=== PATIENT | female | born 1990 | race Caucasian/White ===

== ENCOUNTER 2017-07-11 19:26 | Emergency (ER) | payer MEDICAID, OTHER ==
[~2017-07-11] VITALS: Ht 157.5 cm; Wt 108.0 kg
--- OUTSIDE RECORDS SUMMARY | 2017-07-11 19:32 | XMS REPORT | Continuity of Care Document ---
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 [facility] Medications Medication Details Route Status Patient Instructions Ordering Provider Order Date Source prednisone 10 mg oral tablet =10 mg, 1 tab, PO, Daily, # 30 tab, 11 Refill(s), Pharmacy [facility] [id number] Active [facility] amphetamine-dextroamphetamine 30 mg oral capsule, extended release 0 Refill(s) Active [facility] folic acid 1 mg oral tablet Active [facility] methotrexate 2.5 mg oral tablet =2.5 mg, 1 tab, PO, QWEEK, # 4 tab Active [facility] gabapentin 300 mg oral capsule Active [facility] tramadol 50 mg oral tablet 0 Refill(s) Active [facility] meloxicam 15 mg oral tablet Active [facility] trazodone 50 mg oral tablet 0 Refill(s) Active [facility] Acetaminophen 325 MG / Hydrocodone Bitartrate 5 MG Oral Tablet 0 Refill(s) Active [facility] topiramate 25 MG Oral Tablet [Topamax] 75 mg 3 tab, PO, BID, # 180 tab, 6 Refill(s), Pharmacy: [facility] [id number] Active [facility] amitriptyline 25 mg oral tablet =25 mg, 1 tab, PO, QHS, # 30 tab, 11 Refill(s), Pharmacy [facility] [address] Active [facility] Allergies, Adverse Reactions, Alerts Substance Category Reaction Severity Reaction type Status Date Reported Comments Source sulfa drugs Assertion Drug allergy [facility] Immunizations Results Order Name Results Value Reference Range Date Interpretation Comments Source MRI Orbits w/wo Cont [id number] MRI Orbits w/wo Cont [id number] Name: SUREKHA TRIMBLE MRI Accession Number Exam Exam Date/Time Ordering Physician [id number] MRI Orbits w/wo Cont 01/07/2015 08:19 CDT Shahid Heath [id number] CPT code 27804 Reason For Exam (MRI Orbits w/wo Cont [id number]) idiopathic orbital inflammation R side Report Procedure: MRI Orbits w/wo Cont [id number] Reason for exam: idiopathic orbital inflammation R side. Right-sided retro- orbital pain and blurry vision for nine months, present up to 5 times per week. Question of orbital mass on outside MRI. Comparison: None. Technique: Noncontrast 5 mm sagittal T1, 3 mm axial T2, 3 mm axial T1, 3 mm coronal T1. 3 mm fat saturated postcontrast T1 axial, 3 mm fat saturated post contrast T1 coronal after administration of 8 mL Gadavist intravenous contrast. Findings: The extraocular muscles are intact and symmetric. No enhancing retro-orbital mass. No optic nerve enhancement or asymmetry. Cavernous sinuses demonstrate normal signal intensity and enhancement pattern. Limited view of the remainder of the intracranial structures is unremarkable. Small enhancing structure along the right internal auditory canal may represent small enhancing vessel. Impression: No enhancing intraorbital/ retro-orbital mass. Anatomic appearance of the optic nerves and extraocular muscles. Dr. Branden Gonzales and the staff radiologist have jointly reviewed and interpreted the above examination. Final Report Dictating Physician: Branden Gonzales Resident Physician: Branden Gonzales ELECTRONIC SIGNATURE Signed: 01.08.2015 11:08 Signed by: Sarah Kennedy M.D. Technologist: Josey Mendes, RT(R)(CT)(MR) 01/07/2015 [facility] XR Chest 2 Views [id number] XR Chest 2 Views [id number] Name: SUREKHA TRIMBLE Diagnostic Radiology Accession Number Exam Exam Date/Time Ordering Physician [id number] XR Chest 2 Views 12/08/2014 17:13 CDT Shahid Heath CPT code 30950 Reason For Exam (XR Chest 2 Views) orbital xray, ?sarcoid Report XR Chest 2 Views [id number] Indication: orbital xray, ?sarcoid Comparison: None. Technique: PA and lateral radiographs of the chest were obtained. Findings: Lungs: Normal lung volume. The lungs are clear. Normal pulmonary vasculature. Pleura: No pleural effusion. No pneumothorax. Cardiomediastinal Silhouette: Normal cardiomediastinal silhouette. The great vessels of the thorax are normal. Skeletal Structures: No acute osseous abnormality. Multilevel degenerative changes of the spine. Surgical clips about the left upper quadrant. Impression: No acute cardiopulmonary process. Specifically, no radiographic evidence of lymphadenopathy. Dr. Alek Mcclendon and the staff radiologist have jointly reviewed and interpreted the above examination. Final Report Dictating Physician: Alek Mcclendon Resident Physician: Alek Mcclendon ELECTRONIC SIGNATURE Signed: 12.09.2014 09:58 Signed by: Tiana Roy Technologist: Brittany Lockhart, RT(R)(CT) 12/08/2014 [facility] Neurology Documents Neurology Documents Patient: SUREKHA TRIMBLE [facility]: [id number] Age: 24 years Sex: Female : 89 Associated Diagnoses: None Author: Aspen Prakash Basic Information Admit information: Consult from [facility] Pseudotumor behing the right eye. . Chief Complaint 12/08/14 14:40 pt. stated tumors History of Present Illness Starting May 2014, patient reports right retro-orbital eye pain and blurry vision, pain described as pressure type sensation present at all times, worse with eye movements and at 2pm and gradually worsening by the evening until she falls asleep. Also bilateral occipital pain and far diplopia. Pain is worse with activity, and bright lights seem to bring on the pain and make it worse, associated with nausea and vomiting. No phonophobia. Throbbing type 7-8/10 pain , present 5x a week. Alleviating factors include wearing an eye patch or sunglasses. Aggravating factors include light and movements. Patient has tried vicodin, tramadol and cyclobenzaprine in the past which dosen't seem to help. Topomax made her "go crazy". She also reports the onset of left eye ptosis when these symptoms started to occur. Ptosis has since resolved, blurry vision and pain continue. Initially patient presented to [facility] where they obtained an MRI and told her she had a mass behind her right eye. Later presented [facility] Dr. Rabago who had been prescribing her steroids (50 mg 5 week taper)x3. She felt as though the steroids helped supress the pain but not the blurry vision, she felt frustrated with her care as she wanted a definative treatment for her condition and did not want to continue with just the steroids. Subsequently during this time patient developed hip and shoulder joint pain and myalgias, and knee joint swelling. She completed a course of treatment for lyme disease though her lyme serologies have come back negative. She was seen by a surgical nurse Dr. Lebron in [facility] who told her that her inflammatory markers were elevated and currently has her on methotrexate (it has been 3 weeks on 2.5mg). Mother reports a family history of cancers, unknown autoimmune disorders and fibromyalgia. Review of Systems Eye: Recent visual problem, Blurring, Visual disturbances, Retro-orbital pain. Musculoskeletal: Joint pain, Muscle pain. Neurologic: Headache. Health Status Allergies: Allergic Reactions (Selected) Severity Not Documented Sulfa drugs- No reactions were documented. Current medications: (Selected) Documented Medications Documented acetaminophen-hydrocodone 325 mg-5 mg oral tablet: 0 Refill(s) amphetamine-dextroamphetamine 30 mg oral capsule, extended release: 0 Refill(s) azathioprine 50 mg oral tablet: folic acid 1 mg oral tablet: gabapentin 300 mg oral capsule: meloxicam 15 mg oral tablet: methotrexate 2.5 mg oral tablet: 2.5 mg, 1 tab, PO, QWEEK, 4 tab prednisone 20 mg oral tablet: tramadol 50 mg oral tablet: 0 Refill(s) trazodone 50 mg oral tablet: 0 Refill(s) Problem list: All Problems Obesity NOS / ICD-9-CM 278.00 / Confirmed Added based on documentation of BMI=32.3. Histories Past Medical History: All Problems Obesity NOS / ICD-9-CM 278.00 / Confirmed Added based on documentation of BMI=32.3. Family History: No family history items have been selected or recorded., H/o of cancers, autoimmune conditions, fibromyalgia. Procedure history: No active procedure history items have been selected or recorded. Social History Alcohol 12/08/2014 Frequency: 1-2 times per month Use: Current Recreational Drugs 12/08/2014 Frequency: 1-2 times per week Type: Marijuana Use: Current Tobacco 12/08/2014 Tobacco use per day: 3 Type: Cigarettes Use: Current some day smoker Comment: only 3 cigarettes when smoking - 12/08/2014 14:47 - Anu Meyer Physical Examination VS/Measurements Vital Signs 12/08/14 14:40 Temperature Oral 98.0 DegF Heart Rate 95 bpm Resp. Rate 16 BRMIN Systolic BP 124 mmHg Diastolic BP 73 mmHg BP Site Left Arm Cuff Size Adult Regular Cuff Oxygen Saturation 99 % O2 Source Room Air , Measurements from flowsheet : Weights and Measurements 12/08/14 14:40 Weight 77.6 kg Height 155 cm Body Mass Index 32.3 kg/m2 , Bariatric Measurements : Bariatric View 12/08/14 14:40 Weight 77.6 kg Height 155 cm Body Mass Index 32.3 kg/m2 General Well developed. Well nourished. No apparent distress. HEENT Normocephalic and atraumatic. Neck Supple without carotid bruits. Heart Regular rhythm and rate. Extremities No cyanosis, clubbing or edema. Peripheral pulses normal. Mental Status Normal No evidence of apraxia, aphasia, or thought disorder. Oriented x 4 Fund of knowledge normal. Cranial Nerves 1st cranial nerve: not tested 2nd cranial nerve: normal; Visual springer are full to confrontation. Fundoscopic exam is normal, good disc margins, no disc palor Disks are flat. PERRLA 5th cranial nerve: normal; intact muscles of mastication. Intact light touch and pin prick. 7th cranial nerve: normal 8th cranial nerve: normal 11th cranial nerve: normal 12th cranial nerve: normal Motor Normal tone, bulk and strength in all four limbs without any evidence of an arm drift. No abnormal movements detected. Sensation Intact to light touch, pin prick, vibration and proprioception. Reflexes Diffusely normal with toes downgoing. Coordination Intact to fine finger movements, rapidly alternating movements, fingers to nose , heel to brunner and toe tapping. Gait Normal based without ataxia. Good heel, toe and tandem walking. Health Maintenance Health Maintenance Pending (in the next year) Due Cervical Cancer Screening due 12/08/14 and every 3 yr HIV Testing due 12/08/14 One-time only HPV Vaccine Dose 1 due 12/08/14 One-time only Lipid Screening due 12/08/14 and every 5 yr MMR Vaccine Dose 1 due 12/08/14 One-time only Tetanus Vaccine due 12/08/14 and every 10 yr Varicella Vaccine Dose 1 due 12/08/14 One-time only Due In Future Influenza Vaccine not due until 01/07/15 and every 1 yr Satisfied (in the past 1 year) There are no satisfied recommendations within the defined date range Impression and Plan 24 year old female here with right retro-orbital eye pressure/pain and blurry vision 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 -It would be beneficial to view the images (records wer requested from OSH, patient was also asked to send over her MRI disc). - Will order orbital MRI - Start prednisone 10 mg daily until methotrexate starts to control symptoms, will defer to rheumatology on possible increased dose if no alleviation of symptoms in a few weeks. (Prednisone alleviated symptoms in the past). - CXR to assist with ruling out sarcoidosis. - Will request [facility] - Follow up scheduled in Eye clinic on January 15, will check for need for glasses at this visit. Please see the resident's full note for further details. I have reviewed the history, physical, laboratory and radiological data, Impression and Plan with the resident and I agree with the above. I have interviewed and examined the patient. I have directed the plan of care. 24 F with persistent, steroid-responsive retro-orbital pain since May. Report of inflammatory orbital "mass" from MRI months ago. She had some ptosis (and possibly diplopia). She was recently started on mtx d/t elevated "inflammatory markers" by her surgical nurse. Her exam today is basically normal including nonmydriatic fundus photos. 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 Obtain prior MRI and labs. Check new orbital MRI. May need new labs (IgG4). Start low dose pred for pain (10 daily). check CXR for sarcoid. agree with mtx CXR without sign of sarcoid MRI orbits 01/07/15 reviewed, agree that it's normal. Impression: No enhancing intraorbital/ retro-orbital mass. Anatomic appearance of the optic nerves and extraocular muscles. I saw pt in eye clinic on 01/29. She will continue to follow in neuro clinic for migraine. She called and reported that she had vertigo and a bad migraine after an elevator ride then after riding on a swing. In general she doesn't consider herself prone ot motion sickness. She started amitriptyline (after these vertigo episodes), and is tolerating it. She saw ENT in the past (b/c of hearing loss) and was told that everything was normal. 12/08/2014 [facility] Vital Signs Vital Sign Value Date Comments Source BP Site Left Arm
(04/29/15 9:53 AM) 04/29/2015 [facility] Cuff Size Adult Large Cuff
(04/29/15 9:53 AM) 04/29/2015 [facility] Oxygen Saturation 99 % 2014 [facility] Resp. Rate 16 BRMIN 2014 [facility] Heart Rate 93 bpm 04/29/2015 [facility] Temperature Oral 97.7 [degF] 04/29/2015 [facility] Systolic BP 107 mmHg 2014 [facility] Diastolic BP 71 mmHg 2014 [facility] O2 Source Room Air
(04/29/15 9:53 AM) 04/29/2015 [facility] Cuff Size Adult Regular Cuff
(12/08/14 2:40 PM) 12/08/2014 [facility] BP Site Left Arm
(12/08/14 2:40 PM) 12/08/2014 [facility] Systolic BP 124 mmHg 2014 [facility] Diastolic BP 73 mmHg 2014 [facility] O2 Source Room Air
(12/08/14 2:40 PM) 12/08/2014 [facility] Oxygen Saturation 99 % 2014 [facility] Resp. Rate 16 BRMIN 2014 [facility] Heart Rate 95 bpm 12/08/2014 [facility] Temperature Oral 98.0 [degF] 12/08/2014 [facility] Encounters Location Location Details Encounter Type Encounter Number Reason For Visit Attending Provider ADM Date DC Date Status Source [facility] [id number] Shahid Heath 12/08/2014 12/09/2014 [facility] [id number] Shahid Heath 04/29/2015 04/30/2015 [facility] Procedures Plan of Care Social History Assessment and Plan Assessment and Plan Date Source Title:Clinical Document Author:Shahid Heath Neurology Follow-Up Note RECENT EVENTS/SUMMARY/SUBJECTIVE: Ms. 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 Since her last visit to the neurology clinic I evaluated her in the eye clinic, and did not find any evidence of orbital disease. She had stopped prednisone and started back on tmx 50 BID. The stated then that her headache was R periorbital and she wanted to go to sleep with the headache. She was having about 2/week at that time. She was also taking gabapentin 300 qhs at the time. I rec'd increase of tmx to 75 BID at that time. I also started amitriptyline 25 qhs. She had been doing well until the last few days when she has had a migraine every day. It is R retro-orbital and occipital. She went to the eye doctor in her home town bc it was getting red from time to time--she was told that it was a tear problem d/t systemic disease. Starting around last Monday she has had a bad taste in her mouth and has had to change her diet--she feels she can only eat sweet foods. She is going to see a new surgical nurse on May 22. She had previously seen Dr. Lebron, who had placed her on methotrexate. She however stopped taking it bc it was making her "sick". She stopped taking topamax because "it started to make me feel weird emotionally ". She is taking amitriptyline 25mg qhs, and "can't tell the difference". She is taking alleve, which "doesn't really" help. She also takes gabapentin 300mg po qhs. Sometimes she thinks they may help. She still can't do the swing set or elevators bc it makes her feel disoriented. She has never been on gabapentin at a higher dose. She complains of breaking out in a rash like a bruise in her legs. SH She just quit her job, and is planning on getting a new job that Sleep is "really bad" bc head and back "kills me" O: REVIEW OF SYSTEMS: 12 point review of systems negative except for above. Mood is "alright" when my head doesn't hurt. EXAMINATION: HEENT: nc/at [facility]: regular RESP: clear ABD: nt EXT: no edema NEUROLOGICAL Mental Staus: Awake and alert, oriented to self, place, and date Language: Fluent and Spontaneous, names and repeats CN: pupils equal and reactive without rAPD, visual springer full to CF, facial strength and sensation intact, EOMI. no ptosis. No papilledema on direct ophthalmoscopy Motor: Normal bulk and tone. Full strength. No tremor Sensory: Intact to light touch. Negative Romberg Coordination/Gait: No dysmetria on FTN/HTS. Good rapid alternating movements. Steady, narrow based gait Reflexes: 2+ symmetric throughout, toes downgoing Home Medication List Home Medications Current acetaminophen-hydrocodone: 0 Refill(s). amitriptyline: 25 mg, 1 tab, PO, QHS, 30 tab, 11 Refill(s). amphetamine-dextroamphetamine: 0 Refill(s). folic acid: . gabapentin: . meloxicam: . methotrexate: 2.5 mg, 1 tab, PO, QWEEK, 4 tab. prednisone: 10 mg, 1 tab, PO, Daily, 30 tab, 11 Refill(s). topiramate: 75 mg, 3 tab, PO, BID, 180 tab, 6 Refill(s). tramadol: 0 Refill(s). Last Vital Signs 12/08/14 14:51:48 Heart Rate 95 bpm Respiratory Rate 16 BRMIN Oral Temperature 98.0 DegF BP Primary (Left Arm) 124/73 BP Optional () / Height 155 cm Weight 77.6 kg BMI 32.3 kg/m2 Last Lab Results BMP: (Date ) Hematology Tests: (Date) Others: (Date) Lipid Profile: (Date ) Sodium Hgb () TSH () Triglycerides Potassium HgbA1C () CPK () Cholesterol Phosphorus WBC () AST /ALT () HDL Magnesium PLT () Tropinin () LDL Creatinine INR () Albumin () BUN Ur MAB/Cr () CrCl 0.00 ml/min MRI Orbits w/wo Cont [id number] - 01/07/15 08:19 Impression: No enhancing intraorbital/ retro-orbital mass. Anatomic appearance of the optic nerves and extraocular muscles.Dr. Branden Burgos. Branden Gonzales and the staff radiologist have jointly reviewed and interpreted the above examination SUMMARY: Ms. 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 Since I've been seeing her there has been on clinical or imaging evidence of IOI. She has migraine without aura and possibly a connective tissue disease (previously on MTX). Her exam is unremarkable. IMPRESSION: 1. 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 Pt to remain vigilant to possible triggers - if headache stays bad in 2 wks pt to increase gabapentin to 300 bid, to call if this doesn't help...may increase further - c/w amitrip 25 qhs - pt needs to see rheum for multiple other complaints. She was previously on mtx but taken off. appt scheduled for виан - rtc 3 months 05/04/2015 [facility] * Title:Clinical Document Author:Shahid Heath Date:04/29/15 Neurology Follow-Up Note RECENT EVENTS/SUMMARY/SUBJECTIVE: Ms. 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 Since her last visit to the neurology clinic I evaluated her in the eye clinic, and did not find any evidence of orbital disease. She had stopped prednisone and started back on tmx 50 BID. The stated then that her headache was R periorbital and she wanted to go to sleep with the headache. She was having about 2/week at that time. She was also taking gabapentin 300 qhs at the time. I rec'd increase of tmx to 75 BID at that time. I also started amitriptyline 25 qhs. She had been doing well until the last few days when she has had a migraine every day. It is R retro-orbital and occipital. She went to the eye doctor in her home town bc it was getting red from time to time--she was told that it was a tear problem d/t systemic disease. Starting around last Monday she has had a bad taste in her mouth and has had to change her diet--she feels she can only eat sweet foods. She is going to see a new surgical nurse on May 22. She had previously seen Dr. Lebron, who had placed her on methotrexate. She however stopped taking it bc it was making her "sick". She stopped taking topamax because "it started to make me feel weird emotionally ". She is taking amitriptyline 25mg qhs, and "can't tell the difference". She is taking alleve, which "doesn't really" help. She also takes gabapentin 300mg po qhs. Sometimes she thinks they may help. She still can't do the swing set or elevators bc it makes her feel disoriented. She has never been on gabapentin at a higher dose. She complains of breaking out in a rash like a bruise in her legs. SH She just quit her job, and is planning on getting a new job that Sleep is "really bad" bc head and back "kills me" O: REVIEW OF SYSTEMS: 12 point review of systems negative except for above. Mood is "alright" when my head doesn't hurt. EXAMINATION: HEENT: nc/at [facility]: regular RESP: clear ABD: nt EXT: no edema NEUROLOGICAL Mental Staus: Awake and alert, oriented to self, place, and date Language: Fluent and Spontaneous, names and repeats CN: pupils equal and reactive without rAPD, visual springer full to CF, facial strength and sensation intact, EOMI. no ptosis. No papilledema on direct ophthalmoscopy Motor: Normal bulk and tone. Full strength. No tremor Sensory: Intact to light touch. Negative Romberg Coordination/Gait: No dysmetria on FTN/HTS. Good rapid alternating movements. Steady, narrow based gait Reflexes: 2+ symmetric throughout, toes downgoing Home Medication List Home Medications Current acetaminophen-hydrocodone: 0 Refill(s). amitriptyline: 25 mg, 1 tab, PO, QHS, 30 tab, 11 Refill(s). amphetamine-dextroamphetamine: 0 Refill(s). folic acid: . gabapentin: . meloxicam: . methotrexate: 2.5 mg, 1 tab, PO, QWEEK, 4 tab. prednisone: 10 mg, 1 tab, PO, Daily, 30 tab, 11 Refill(s). topiramate: 75 mg, 3 tab, PO, BID, 180 tab, 6 Refill(s). tramadol: 0 Refill(s). Last Vital Signs 12/08/14 14:51:48 Heart Rate 95 bpm Respiratory Rate 16 BRMIN Oral Temperature 98.0 DegF BP Primary (Left Arm) 124/73 BP Optional () / Height 155 cm Weight 77.6 kg BMI 32.3 kg/m2 Last Lab Results BMP: (Date ) Hematology Tests: (Date) Others: (Date) Lipid Profile: (Date ) Sodium Hgb () TSH () Triglycerides Potassium HgbA1C () CPK () Cholesterol Phosphorus WBC () AST /ALT () HDL Magnesium PLT () Tropinin () LDL Creatinine INR () Albumin () BUN Ur MAB/Cr () CrCl 0.00 ml/min MRI Orbits w/wo Cont [id number] - 01/07/15 08:19 Impression: No enhancing intraorbital/ retro-orbital mass. Anatomic appearance of the optic nerves and extraocular muscles.Dr. Branden GonzalesDr. Branden Gonzales and the staff radiologist have jointly reviewed and interpreted the above examination SUMMARY: Ms. 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 Since I've been seeing her there has been on clinical or imaging evidence of IOI. She has migraine without aura and possibly a connective tissue disease (previously on MTX). Her exam is unremarkable. IMPRESSION: 1. 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 Pt to remain vigilant to possible triggers - if headache stays bad in 2 wks pt to increase gabapentin to 300 bid, to call if this doesn't help...may increase further - c/w amitrip 25 qhs - pt needs to see rheum for multiple other complaints. She was previously on mtx but taken off. appt scheduled for may - rtc 3 months 04/30/2015 [facility] * <table cellspacing="1" cellpadding="0" width="95%"><colgroup>< col width="35%"></col><col width="35%"></col><col width="30%"></col></colgroup>< tbody><tr><td align="left"><content styleCode="Bold">Title:</content>General Admission H&P *</td><td align="left"><content styleCode="Bold">Author:</content> Aspen Prakash</td><td align="left"><content styleCode="Bold">Date:</content></td></tr></tbody></table><table cellspacing="1" cellpadding="0" width="95%">< tbody><tr><td>
Patient: SUREKHA TRIMBLE
Age: 24 years Sex: Female : 89
Associated Diagnoses: None
Author: Aspen Prakahs

Basic Information
Admit information: Consult from [facility] behing the right eye. .

Chief Complaint
12/08/14 14:40 pt. stated tumors

History of Present Illness
Starting May 2014, patient reports right retro-orbital eye pain and blurry vision, pain described as pressure type sensation present at all times, worse with eye movements and at 2pm and gradually worsening by the evening until she falls asleep. Also bilateral occipital pain and far diplopia. Pain is worse with activity, and bright lights seem to bring on the pain and make it worse, associated with nausea and vomiting. No phonophobia. Throbbing type 7-8/10 pain , present 5x a week. Alleviating factors include wearing an eye patch or sunglasses. Aggravating factors include light and movements. Patient has tried vicodin, tramadol and cyclobenzaprine in the past which dosen't seem to help. Topomax made her "go crazy". She also reports the onset of left eye ptosis when these symptoms started to occur. Ptosis has since resolved, blurry vision and pain continue.

Initially patient presented to [facility] where they obtained an MRI and told her she had a mass behind her right eye. Later presented to [facility]y [facility] She [facility] Dr. Rabago who had been prescribing her steroids (50 mg 5 week taper)x3. She felt as though the steroids helped supress the pain but not the blurry vision, she felt frustrated with her care as she wanted a definative treatment for her condition and did not want to continue with just the steroids. Subsequently during this time patient developed hip and shoulder joint pain and myalgias, and knee joint swelling. She completed a course of treatment for lyme disease though her lyme serologies have come back negative. She was seen by a surgical nurse Dr. Lebron in [facility] who told her that her inflammatory markers were elevated and currently has her on methotrexate (it has been 3 weeks on 2.5mg).

Mother reports a family history of cancers, unknown autoimmune disorders and fibromyalgia.

Review of Systems
Eye: Recent visual problem, Blurring, Visual disturbances, Retro-orbital pain.
Musculoskeletal: Joint pain, Muscle pain.
Neurologic: Headache.

Health Status
Allergies:
Allergic Reactions (Selected)
Severity Not Documented
Sulfa drugs- No reactions were documented.
Current medications: (Selected)
Documented Medications
Documented
acetaminophen-hydrocodone 325 mg-5 mg oral tablet: 0 Refill(s)
amphetamine- dextroamphetamine 30 mg oral capsule, extended release: 0 Refill(s)
azathioprine 50 mg oral tablet:
folic acid 1 mg oral tablet:
gabapentin 300 mg oral capsule:
meloxicam 15 mg oral tablet:
methotrexate 2.5 mg oral tablet: 2.5 mg, 1 tab, PO, QWEEK, 4 tab
prednisone 20 mg oral tablet:< br/>tramadol 50 mg oral tablet: 0 Refill(s)
trazodone 50 mg oral tablet: 0 Refill(s)
Problem list:
All Problems
Obesity NOS / ICD-9-CM 278.00 / Confirmed
Added based on documentation of BMI=32.3.

Histories<br/ >Past Medical History:
All Problems
Obesity NOS / ICD-9-CM 278.00 / Confirmed
Added based on documentation of BMI=32.3.
Family History:
No family history items have been selected or recorded., H/o of cancers, autoimmune conditions, fibromyalgia.
Procedure history:
No active procedure history items have been selected or recorded.
Social History
< br/>Social & Psychosocial Habits

Alcohol
12/08/2014 Frequency: 1-2 times per month
Use: Current

Recreational Drugs
12/08/2014 Frequency: 1-2 times per week
Type: Marijuana
Use: Current

Tobacco
12/08/2014 Tobacco use per day: 3
Type: Cigarettes
Use: Current some day smoker
Comment: only 3 cigarettes when smoking - 2014 14:47 - Anu Meyer
.

Physical Examination
VS/ Measurements
Vital Signs
12/08/14 14:40 Temperature Oral 98.0 DegF
Heart Rate 95 bpm
Resp. Rate 16 BRMIN
Systolic BP 124 mmHg
Diastolic BP 73 mmHg
BP Site Left Arm
Cuff Size Adult Regular Cuff
Oxygen Saturation 99 %
O2 Source Room Air

, Measurements from flowsheet : Weights and Measurements
12/08/14 14:40 Weight 77.6 kg
Height 155 cm
Body Mass Index 32.3 kg/m2

, Bariatric Measurements : Bariatric View
12/08/14 14:40 Weight 77.6 kg
Height 155 cm
Body Mass Index 32.3 kg/m2

General
Well developed. Well nourished. No apparent distress.

HEENT
Normocephalic and atraumatic.

Neck
Supple without carotid bruits.

Heart
Regular rhythm and rate.

Extremities
No cyanosis, clubbing or edema. Peripheral pulses normal.

Mental Status
Normal
No evidence of apraxia, aphasia, or thought disorder.
Oriented x 4
Fund of knowledge normal.<br/ >
Cranial Nerves
1st cranial nerve: not tested
2nd cranial nerve: normal; Visual springer are full to confrontation. Fundoscopic exam is normal, good disc margins, no disc palor Disks are flat. PERRLA
3rd, 4th & 6th cranial nerves: normal; Extraocular movements are intact without nystagmus.
5th cranial nerve: normal; intact muscles of mastication. Intact light touch and pin prick.
7th cranial nerve: normal
8th cranial nerve: normal
9th & 10th cranial nerves: normal; Gag is present
11th cranial nerve: normal
12th cranial nerve: normal

Motor
Normal tone, bulk and strength in all four limbs without any evidence of an arm drift. No abnormal movements detected.

Sensation
Intact to light touch, pin prick, vibration and proprioception.

Reflexes
Diffusely normal with toes downgoing.

Coordination
Intact to fine finger movements, rapidly alternating movements, fingers to nose, heel to brunner and toe tapping.

Gait
Normal based without ataxia. Good heel, toe and tandem walking.

Health Maintenance

Health Maintenance
Pending (in the next year)
Due
Cervical Cancer Screening due 12/08/14 and every 3 yr<br/ >HIV Testing due 12/08/14 One-time only
HPV Vaccine Dose 1 due 12/08/14 One- time only
Lipid Screening due 12/08/14 and every 5 yr
MMR Vaccine Dose 1 due 12/08/14 One-time only
Tetanus Vaccine due 12/08/14 and every 10 yr
Varicella Vaccine Dose 1 due 12/08/14 One-time only
Due In Future
Influenza Vaccine not due until 01/07/15 and every 1 yr
Satisfied (in the past 1 year)
There are no satisfied recommendations within the defined date range

Impression and Plan
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
-It would be beneficial to view the images (records wer requested from OSH, patient was also asked to send over her MRI disc).
- Will order orbital MRI
- Start prednisone 10 mg daily until methotrexate starts to control symptoms, will defer to rheumatology on possible increased dose if no alleviation of symptoms in a few weeks. ( Prednisone alleviated symptoms in the past).
- CXR to assist with ruling out sarcoidosis.
- [facility]
- Follow up scheduled in Eye clinic on January 15, will check for need for glasses at this visit.</td></tr></tbody></table><table cellspacing="1" cellpadding="0" width="95%"><colgroup><col width="10%"></col>< col width="90%"></col></colgroup><tbody><tr><td>Addendum by Shahid Heath on 08 December 2014 17:31</td><td>Please see the resident's full note for further details. I have reviewed the history, physical, laboratory and radiological data , Impression and Plan with the resident and I agree with the above. I have interviewed and examined the patient. I have directed the plan of care.
<br/ >24 F with persistent, steroid-responsive retro-orbital pain since May. Report of inflammatory orbital "mass" from MRI months ago. She had some ptosis ( and possibly diplopia). She was recently started on mtx d/t elevated "inflammatory markers" by her surgical nurse. Her exam today is basically normal including nonmydriatic fundus photos. 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 Obtain prior MRI and labs. Check new orbital MRI. May need new labs ( IgG4). Start low dose pred for pain (10 daily). check CXR for sarcoid. agree with mtx</td></tr><tr><td>Addendum by Shahid Heath on 10 December 2014 13:06</ td><td>CXR without sign of sarcoid</td></tr></tbody></table> 12/13/2014 [facility] * <table cellspacing="1" cellpadding="0" width="95%"><colgroup>< col width="35%"></col><col width="35%"></col><col width="30%"></col></colgroup>< tbody><tr><td align="left"><content styleCode="Bold">Title:</content>General Admission H&P *</td><td align="left"><content styleCode="Bold">Author:</content> Aspen Prakash</td><td align="left"><content styleCode="Bold">Date:</content></td></tr></tbody></table><table cellspacing="1" cellpadding="0" width="95%">< tbody><tr><td>
Patient: SUREKHA TRIMBLE
Age: 24 years Sex: Female : 89
Associated Diagnoses: None
Author: Aspen Prakash

Basic Information
Admit information: Consult from [facility] beh[facility] the right eye. .

Chief Complaint
12/08/14 14:40 pt. stated tumors

History of Present Illness
Starting May 2014, patient reports right retro-orbital eye pain and blurry vision, pain described as pressure type sensation present at all times, worse with eye movements and at 2pm and gradually worsening by the evening until she falls asleep. Also bilateral occipital pain and far diplopia. Pain is worse with activity, and bright lights seem to bring on the pain and make it worse, associated with nausea and vomiting. No phonophobia. Throbbing type 7-8/10 pain , present 5x a week. Alleviating factors include wearing an eye patch or sunglasses. Aggravating factors include light and movements. Patient has tried vicodin, tramadol and cyclobenzaprine in the past which dosen't seem to help. Topomax made her "go crazy". She also reports the onset of left eye ptosis when these symptoms started to occur. Ptosis has since resolved, blurry vision and pain continue.

Initially patient presented to [facility] where they obtained an MRI and told her she had a mass behind her right eye. Later presented to neurology department [facility] She saw Dr. Rabago who had been prescribing her steroids (50 mg 5 week taper)x3. She felt as though the steroids helped supress the pain but not the blurry vision, she felt frustrated with her care as she wanted a definative treatment for her condition and did not want to continue with just the steroids. Subsequently during this time patient developed hip and shoulder joint pain and myalgias, and knee joint swelling. She completed a course of treatment for lyme disease though her lyme serologies have come back negative. She was seen by a surgical nurse Dr. Lebron in [facility] who told her that her inflammatory markers were elevated and currently has her on methotrexate (it has been 3 weeks on 2.5mg).

Mother reports a family history of cancers, unknown autoimmune disorders and fibromyalgia.

Review of Systems
Eye: Recent visual problem, Blurring, Visual disturbances, Retro-orbital pain.
Musculoskeletal: Joint pain, Muscle pain.
Neurologic: Headache.

Health Status
Allergies:
Allergic Reactions (Selected)
Severity Not Documented
Sulfa drugs- No reactions were documented.
Current medications: (Selected)
Documented Medications
Documented
acetaminophen-hydrocodone 325 mg-5 mg oral tablet: 0 Refill(s)
amphetamine- dextroamphetamine 30 mg oral capsule, extended release: 0 Refill(s)
azathioprine 50 mg oral tablet:
folic acid 1 mg oral tablet:
gabapentin 300 mg oral capsule:
meloxicam 15 mg oral tablet:
methotrexate 2.5 mg oral tablet: 2.5 mg, 1 tab, PO, QWEEK, 4 tab
prednisone 20 mg oral tablet:< br/>tramadol 50 mg oral tablet: 0 Refill(s)
trazodone 50 mg oral tablet: 0 Refill(s)
Problem list:
All Problems
Obesity NOS / ICD-9-CM 278.00 / Confirmed
Added based on documentation of BMI=32.3.

Histories<br/ >Past Medical History:
All Problems
Obesity NOS / ICD-9-CM 278.00 / Confirmed
Added based on documentation of BMI=32.3.
Family History:
No family history items have been selected or recorded., H/o of cancers, autoimmune conditions, fibromyalgia.
Procedure history:
No active procedure history items have been selected or recorded.
Social History
< br/>Social & Psychosocial Habits

Alcohol
12/08/2014 Frequency: 1-2 times per month
Use: Current

Recreational Drugs
12/08/2014 Frequency: 1-2 times per week
Type: Marijuana
Use: Current

Tobacco
12/08/2014 Tobacco use per day: 3
Type: Cigarettes
Use: Current some day smoker
Comment: only 3 cigarettes when smoking - 2014 14:47 - Anu Meyer
.

Physical Examination
VS/ Measurements
Vital Signs
12/08/14 14:40 Temperature Oral 98.0 DegF
Heart Rate 95 bpm
Resp. Rate 16 BRMIN
Systolic BP 124 mmHg
Diastolic BP 73 mmHg
BP Site Left Arm
Cuff Size Adult Regular Cuff
Oxygen Saturation 99 %
O2 Source Room Air

, Measurements from flowsheet : Weights and Measurements
12/08/14 14:40 Weight 77.6 kg
Height 155 cm
Body Mass Index 32.3 kg/m2

, Bariatric Measurements : Bariatric View
12/08/14 14:40 Weight 77.6 kg
Height 155 cm
Body Mass Index 32.3 kg/m2

General
Well developed. Well nourished. No apparent distress.

HEENT
Normocephalic and atraumatic.

Neck
Supple without carotid bruits.

Heart
Regular rhythm and rate.

Extremities
No cyanosis, clubbing or edema. Peripheral pulses normal.

Mental Status
Normal
No evidence of apraxia, aphasia, or thought disorder.
Oriented x 4
Fund of knowledge normal.<br/ >
Cranial Nerves
1st cranial nerve: not tested
2nd cranial nerve: normal; Visual springer are full to confrontation. Fundoscopic exam is normal, good disc margins, no disc palor Disks are flat. PERRLA
3rd, 4th & 6th cranial nerves: normal; Extraocular movements are intact without nystagmus.
5th cranial nerve: normal; intact muscles of mastication. Intact light touch and pin prick.
7th cranial nerve: normal
8th cranial nerve: normal
9th & 10th cranial nerves: normal; Gag is present
11th cranial nerve: normal
12th cranial nerve: normal

Motor
Normal tone, bulk and strength in all four limbs without any evidence of an arm drift. No abnormal movements detected.

Sensation
Intact to light touch, pin prick, vibration and proprioception.

Reflexes
Diffusely normal with toes downgoing.

Coordination
Intact to fine finger movements, rapidly alternating movements, fingers to nose, heel to brunner and toe tapping.

Gait
Normal based without ataxia. Good heel, toe and tandem walking.

Health Maintenance

Health Maintenance
Pending (in the next year)
Due
Cervical Cancer Screening due 12/08/14 and every 3 yr<br/ >HIV Testing due 12/08/14 One-time only
HPV Vaccine Dose 1 due 12/08/14 One- time only
Lipid Screening due 12/08/14 and every 5 yr
MMR Vaccine Dose 1 due 12/08/14 One-time only
Tetanus Vaccine due 12/08/14 and every 10 yr
Varicella Vaccine Dose 1 due 12/08/14 One-time only
Due In Future
Influenza Vaccine not due until 01/07/15 and every 1 yr
Satisfied (in the past 1 year)
There are no satisfied recommendations within the defined date range

Impression and Plan
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
-It would be beneficial to view the images (records wer requested from OSH, patient was also asked to send over her MRI disc).
- Will order orbital MRI
- Start prednisone 10 mg daily until methotrexate starts to control symptoms, will defer to rheumatology on possible increased dose if no alleviation of symptoms in a few weeks. ( Prednisone alleviated symptoms in the past).
- CXR to assist with ruling out sarcoidosis.
- [facility]
- Follow up scheduled in Eye clinic on January 15, will check for need for glasses at this visit.</td></tr></tbody></table><table cellspacing="1" cellpadding="0" width="95%"><colgroup><col width="10%"></col>< col width="90%"></col></colgroup><tbody><tr><td>Addendum by Shahid Heath on 08 December 2014 17:31</td><td>Please see the resident's full note for further details. I have reviewed the history, physical, laboratory and radiological data , Impression and Plan with the resident and I agree with the above. I have interviewed and examined the patient. I have directed the plan of care.
<br/ >24 F with persistent, steroid-responsive retro-orbital pain since May. Report of inflammatory orbital "mass" from MRI months ago. She had some ptosis ( and possibly diplopia). She was recently started on mtx d/t elevated "inflammatory markers" by her surgical nurse. Her exam today is basically normal including nonmydriatic fundus photos. 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 Obtain prior MRI and labs. Check new orbital MRI. May need new labs ( IgG4). Start low dose pred for pain (10 daily). check CXR for sarcoid. agree with mtx</td></tr></tbody></table> 12/09/2014 [facility] Family History Advance Directives Functional Status
--- OUTSIDE RECORDS SUMMARY | 2017-07-11 19:33 | XMS REPORT | Summary of Care ---
Author Organization Unknown Address Unknown Phone Unavailable Encounter HBOC Date(s): 12/08/14 - 12/08/[address] [address]- [facility] [phone] Discharge Disposition: Discharge to Home or Self-care OP Attending Physician: Shahid Heath Admitting Physician: Shahid Heath Vital Signs Most recent to 1 oldest [Reference Range]: Temperature Oral 98.0 DegF [96.4-99.1 DegF] (12/08/14 2:40 PM) Heart Rate [60-100 95 bpm bpm] (12/08/14 2:40 PM) Resp. Rate [14-20 16 BRMIN BRMIN] (12/08/14 2:40 PM) Blood Pressure 124/73 mmHg [90-140/60-90 mmHg] (12/08/14 2:40 PM) BP Site Left Arm (12/08/14 2:40 PM) Cuff Size Adult Regular Cuff (12/08/14 2:40 PM) Oxygen Saturation 99 % [92-100 %] (12/08/14 2:40 PM) O2 Source Room Air (12/08/14 2:40 PM) Problem List Condition Effective Dates Status Health Status Informant Idiopathic orbital Active inflammatory syndrome(Confirmed) Obesity Active NOS(Confirmed)1 1Added based on documentation of BMI=32.3. Allergies, Adverse Reactions, Alerts Substance Reaction Severity Status sulfa drugs Active Medications acetaminophen-hydrocodone 325 mg-5 mg oral tablet 0 Refill(s) Start Date: 12/08/14 Status: Ordered amphetamine-dextroamphetamine 30 mg oral capsule, extended release 0 Refill(s) Start Date: 12/08/14 Status: Ordered folic acid 1 mg oral tablet Start Date: 12/08/14 Status: Ordered gabapentin 300 mg oral capsule Start Date: 12/08/14 Status: Ordered meloxicam 15 mg oral tablet Start Date: 12/08/14 Status: Ordered methotrexate 2.5 mg oral tablet =2.5 mg, 1 tab, PO, QWEEK, # 4 tab Start Date: 12/08/14 Status: Ordered prednisone 10 mg oral tablet =10 mg, 1 tab, PO, Daily, # 30 tab, 11 Refill(s), Pharmacy [facility] [id number] Start Date: 12/08/14 Stop Date: 06/27/19 Status: Ordered tramadol 50 mg oral tablet 0 Refill(s) Start Date: 12/08/14 Status: Ordered trazodone 50 mg oral tablet 0 Refill(s) Start Date: 12/08/14 Status: Ordered Results No data available for this section Immunizations No data available for this section Procedures No data available for this section Social History No data available for this section Functional Status No data available for this section Assessment and Plan Extracted from: Title: General Admission H&P * Author: Aspen Prakash Date: 12/08/14 Patient: SUREKHA LEBLANC Age: 24 years Sex: Female : 89 [...] and pain continue. Initially patient presented to [place] where they obtained an MRI and told her she had a mass behind her right eye. Later presented to neurology [facility] She [facility] Dr. Rabago who had been [...] back negative. She was seen by a investment representative Dr. Lebron in [facility] who told her that her inflammatory markers [...] have been selected or recorded. Social History Social & Psychosocial Habits Alcohol 12/08/2014 Frequency: 1-2 [...] rheumatological lab work-up from Dr. Lebron in [facility] - Follow up scheduled in Eye clinic on January 15, will check for need for glasses at this visit. Addendum Please see the resident's full note for further details. I have reviewed the history, by Kumar physical, laboratory and radiological data, Impression and Plan with the resident and I Shahid agree with the above. I have interviewed and examined the patient. I have directed the on plan of care. December 29 F with persistent, steroid-responsive retro-orbital pain since May. Report of 2014 17:31 inflammatory orbital "mass" from MRI months ago. She had some ptosis (and possibly diplopia). She was recently started on mtx d/t elevated "inflammatory markers" by her investment representative. Her exam today is basically normal including nonmydriatic fundus photos. 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 Obtain prior MRI and labs. Check new orbital MRI. May need new labs (IgG4). Start low dose pred for pain (10 daily). check CXR for sarcoid. agree with mtx Hospital Discharge Instructions No data available for this section
--- OUTSIDE RECORDS SUMMARY | 2017-07-11 19:33 | XMS REPORT | Continuity of Care Document ---
Author Author Formerly [facility] Address Unknown Phone Unavailable Allergies Active Description Code Type Severity Reaction Onset Reported/Identified Relationship to Patient Clinical Status Yes Augmentin 875-125 mg tablet Drug Allergy N/A N/A 05/22/2013 Yes Sulfa (Sulfonamide Antibiotics) Drug Allergy N/A N/A 09/09/2013 Medications There is no data. Problems Date Dx Coded Attending Type Code Diagnosis Diagnosed By 05/16/2013 SERA ANDERSON DO 461.9 SINUSITIS ACUTE 05/16/2013 SERA ANDERSON DO V65.42 COUNSELING - SMOKING CESSATION 05/16/2013 NILS LILLY APRN 461.9 SINUSITIS ACUTE 05/16/2013 NILS LILLY APRN V65.42 COUNSELING - SMOKING CESSATION 09/09/2013 NILS LILLY APRN 616.10 VAGINITIS AND VULVOVAGINITIS UNSPECIFIED 09/09/2013 NILS LILLY APRN V74.5 STD SCREEN Procedures Code [place] [address] ROUTINE VENIPUNCTURE 09/09/2013 90287 TRICHOMONAS (IN-HOUSE) 09/09/2013 11843 SYPHILLIS-STATE LAB 09/10/2013 42224 HIV (STATE LAB) 09/10/2013 76379 GC/CHLAM PROBE ([facility]) 09/10/2013 43838 CULTURE UROGENITAL 09/12/2013 Results There is no data. Encounters ACCT No. Visit Date/Time Discharge Status Pt. Type Provider Facility Loc./Unit Complaint [id number] 09/09/2013 16:53:00 09/09/2013 23:59:59 CLS Outpatient NILS LILLY APRN [id number] 05/16/2013 10:16:00 05/16/2013 23:59:59 [place] [id number] 11/20/2008 10:48:00 11/20/2008 23:59:59 CLS Outpatient JOANN KIM [id number] 03/31/2015 14:01:00 03/31/2015 14:38:00 DIS Outpatient ADOLPH MARTINEZ, HALLIE See [facility] SLEEP [id number] 07/11/2017 19:28:00 ACT Emergency LESTER OCHOA DO [facility] ER KIDNEY PAIN
--- OUTSIDE RECORDS SUMMARY | 2017-07-11 19:33 | XMS REPORT | Summary of Care ---
Author Author [facility] Organization [facility] Address Unknown Phone Unavailable Encounter HBOC Date(s): 04/29/15 - 04/29/15 [facility] [address] [place] [address]- [facility] [phone] Discharge Disposition: Discharge to Home or Self-care OP Attending Physician: Shahid Heath Admitting Physician: Shahid Heath Vital Signs Most recent to 1 oldest [Reference Range]: Temperature Oral 97.7 DegF [96.4-99.1 DegF] (04/29/15 9:53 AM) Heart Rate [60-100 93 bpm bpm] (04/29/15 9:53 AM) Resp. Rate [14-20 16 BRMIN BRMIN] (04/29/15 9:53 AM) Blood Pressure 107/71 mmHg [90-140/60-90 mmHg] (04/29/15 9:53 AM) BP Site Left Arm (04/29/15 9:53 AM) Cuff Size Adult Large Cuff (04/29/15 9:53 AM) Oxygen Saturation 99 % [92-100 %] (04/29/15 9:53 AM) O2 Source Room Air (04/29/15 9:53 AM) Problem List Condition Effective Dates Status Health Status Informant Idiopathic orbital Active inflammatory syndrome(Confirmed) Migraine without Active aura(Confirmed) Obesity Active NOS(Confirmed)1 1Added based on documentation of BMI=32.3. Allergies, Adverse Reactions, Alerts Substance Reaction Severity Status sulfa drugs Active Medications acetaminophen-hydrocodone 325 mg-5 mg oral tablet 0 Refill(s) Start Date: 12/08/14 Status: Ordered amitriptyline 25 mg oral tablet =25 mg, 1 tab, PO, QHS, # 30 tab, 11 Refill(s), Pharmacy [facility] [id number] Start Date: 01/29/15 Status: Ordered amphetamine-dextroamphetamine 30 mg oral capsule, [...] Daily, # 30 tab, 11 Refill(s), [facility]acy [facility] Start Date: 12/08/14 Stop Date: 06/27/19 Status: Ordered Topamax 25 mg oral tablet 75 mg 3 tab, PO, BID, # 180 tab, 6 Refill(s), Pharmacy: [facility] [id number] Start Date: 01/29/15 Status: Ordered tramadol 50 mg oral tablet 0 Refill(s) Start Date: 12/08/14 Status: Ordered Results No data available for this section Immunizations No data available for this section Procedures No data available for this section Social History No data available for this section Functional Status No data available for this section Assessment and Plan Extracted from: Title: Clinical Document Author: Shahid Heath Date: 04/29/15 Neurology Follow-Up Note RECENT EVENTS/SUMMARY/SUBJECTIVE: Ms. Leblanc is a 25 year old woman with [...] She is going to see a new roller die cutting machine operator on May 22. She had previously seen [...] Vital Signs 12/08/14 14:51:48 Heart Rate 95 bpmRespiratory Rate 16 BRMINOral Temperature 98.0 DegF BP Primary (Left Arm) 124/73BP Optional () / Height 155 cmWeight 77.6 kgBMI 32.3 kg/m2 Last Lab Results BMP: (Date )Hematology Tests: (Date)Others: (Date)Lipid Profile: (Date ) Sodium Hgb ()TSH ()Triglycerides Potassium HgbA1C ()CPK ()Cholesterol Phosphorus WBC ()AST /ALT ()HDL Magnesium PLT ()Tropinin ()LDL Creatinine INR ()Albumin () BUN Ur MAB/Cr () CrCl 0.00 ml/min MRI Orbits w/wo Cont [id number] -01/07/15 08:19 Impression: No enhancing intraorbital/ retro-orbital mass. Anatomic appearance of the optic nerves and extraocular muscles.Dr. Branden GonzalesDr. Branden Gonzales and the staff radiologist have jointly reviewed and interpreted the above examination SUMMARY: Ms. Leblanc is a 25-year-old woman who I initially [...]
--- OUTSIDE RECORDS SUMMARY | 2017-07-11 19:33 | XMS REPORT | Summary of Care ---
Author Author [facility] Organization [facility] Address Unknown Phone Unavailable Encounter HBOC Date(s): 04/29/15 - 04/29/15 [facility] [address] [place] [address]- [facility] [phone] Discharge Disposition: Discharge to Home or Self-care [...] QHS, # 30 tab, 11 Refill(s), [facility] [address] Start Date: 01/29/15 Status: Ordered amphetamine-dextroamphetamine 30 [...] Daily, # 30 tab, 11 Refill(s), [facility]acy [facility] [address] Start Date: 12/08/14 Stop Date: 06/27/19 Status: Ordered Topamax 25 mg oral tablet 75 mg 3 tab, PO, BID, # 180 tab, 6 Refill(s), Pharmacy: [facility] [id number] Start Date: 01/29/15 Status: Ordered tramadol 50 [...] She is going to see a new hydraulic press in operator on May 22. She had previously [...] CrCl 0.00 ml/min MRI Orbits w/wo Cont [id number] -01/07/15 08:19 Impression: No enhancing intraorbital/ retro-orbital [...]
--- OUTSIDE RECORDS SUMMARY | 2017-07-11 19:33 | XMS REPORT ---
Author SRIDEVI Burnette [facility] [employer] Address Unknown Phone Unavailable Care Team Providers Care Loop Drier Operator Name Role Phone SRIDEVI POLO CP Unavailable Allergies, Adverse Reactions, Alerts Substance Reaction Event Type Augmentin 875-125 Mg Tablet severe abd pain Non Drug Allergy Sulfa (sulfonamide Antibiotics) Info Not Available Non Drug Allergy Problems Problem Type Condition Code Onset Dates Condition Status Problem Unspecified vaginitis and vulvovaginitis 616.10 Active Problem Acute sinusitis, unspecified 461.9 Active Problem Screening examination for venereal disease V74.5 Active Problem Counseling on substance use and abuse V65.42 Active Assessment Dental examination Z01.20 Active Medications Medication Code System Code Instructions Start Date End Date Status Dosage Klonopin [facility] [address]-60 not defined Prozac [facility] [address]-06 not defined Percocet [facility] [address]-72 7.5-325 MG Orally every 4-6 hours as needed Dec 29, 2015 1-2 tablets as needed Tramadol HCl [facility] [address]-32 50 MG Orally every 6 hrs 1 -2 Adderall [facility] [address]-98 not defined Clindamycin HCl [facility] [address]-21 150 MG Orally every 8 hrs 2 capsules Procedures Procedure Coding System Code Date INTRAORL-PERIAPICAL 1 FILM 47850 CPT-4 D0220 Dec 29, 2015 PANORAMIC FILM SEE ALSO CODE 89350 CPT-4 D0330 Dec 29, 2015 LTD ORAL EVALUATION - PROBLEM FOCUS CPT-4 D0140 Dec 29, 2015 Billing Notes on claim CPT-4 EC109 Dec 29, 2015 Vital Signs Date/Time: Dec 29, 2015 Blood Pressure Diastolic 77 mmHg Blood Pressure Systolic 120 mmHg Height 60 in Results No Known Results Summary Purpose eClinicalWorks Submission
--- OUTSIDE RECORDS SUMMARY | 2017-07-11 19:33 | XMS REPORT | Summary of Care ---
Author Organization Unknown Address Unknown Phone Unavailable Encounter HBOC Date(s): 12/08/14 - 12/08/[address] [address]- [facility] [phone] Discharge Disposition: Discharge to Home or Self-care [...] Daily, # 30 tab, 11 Refill(s), Pharmacy [facility] [id number] Start Date: 12/08/14 Stop Date: 06/27/19 Status: [...] and pain continue. Initially patient presented to [facility] where they obtained an MRI and told her she had a mass behind her right eye. Later presented to neurology department who [facility] She saw Dr. Rabago who had been [...] back negative. She was seen by a scooter mechanic Dr. Lebron in [facility] who told her that her inflammatory [...] rheumatological lab work-up from Dr. Lebron in [facility] - Follow up scheduled in Eye clinic on January 15, will check for need for glasses at this visit. Addendum Please see the resident's full note for further details. I have reviewed the history, by Kumar physical, laboratory and radiological data, Impression and Plan with the resident and Shahid Omer agree with the above. I have interviewed and examined the patient. I have directed the on plan of care. December 29 F with persistent, steroid-responsive retro-orbital pain since May. Report of 2014 17:31 inflammatory orbital "mass" from MRI months ago. She had some ptosis (and possibly diplopia). She was recently started on mtx d/t elevated "inflammatory markers" by her scooter mechanic. Her exam today is basically normal including nonmydriatic fundus photos. 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 Obtain prior MRI and labs. Check new orbital MRI. May need new labs (IgG4). Start low dose pred for pain (10 daily). check CXR for sarcoid. agree with mtx Addendum CXR without sign of sarcoid by Shahid Heath on 10 December 2014 13:06 Hospital Discharge Instructions No data available for this section
--- OUTSIDE RECORDS SUMMARY | 2017-07-11 19:33 | XMS REPORT | Clinical Summary ---
Author Author [facility] Organization [facility] Address Unknown Phone Unavailable Care Team Providers Care Material Mixer Name Role Phone Yuli Monge MD Unavailable Delta Rabago MD Unavailable Source Comments Some departments are not documenting in the electronic medical record. If you do not see the information that you expected, contact Release of Information in the Health Information Management department at [phone] for further assistance in locating additional records.[facility] Allergies Active Allergy Reactions Severity Noted Date Comments Sulfa (Sulfonamide HIVES 05/29/2014 Antibiotics) Current Medications Prescription Sig. Disp. 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 Discussed the risk of recurrence. OK to remain off steroids. Recheck in one month. Family History Medical History Relation Name Comments Diabetes Father Coronary Artery Disease Maternal Grandfather Autoimmune Disease Mother Thyroid Disease Mother Cancer Paternal Grandfather Stroke Paternal Grandmother Relation Name Status Comments Father Maternal Grandfather Mother Paternal Grandfather Paternal Grandmother Social History Tobacco Use Types Packs/Day Years Used Date Current Some Day Smoker Cigarettes 0 Smokeless Tobacco: Former Chew Quit: User 05/08/2012 Comments: 5 cigs a week. Alcohol Use Drinks/Week oz/Week Comments Yes 2 Standard 1.0 drinks or equivalent Sex Assigned at Date Recorded Not on file Last Filed Vital Signs Vital Sign Reading Time Taken Blood Pressure 128/81 06/24/2014 2:49 PM EXTENSION SUPERVISOR Pulse 85 06/24/2014 2:49 PM EXTENSION SUPERVISOR Temperature - - Respiratory Rate - - Oxygen Saturation - - Inhaled Oxygen - - Concentration Weight 85.7 kg (189 lb) 06/24/2014 2:49 PM EXTENSION SUPERVISOR Height 154.9 cm (5' 1") 06/24/2014 2:49 PM EXTENSION SUPERVISOR Body Mass Index 35.71 06/24/2014 2:49 PM EXTENSION SUPERVISOR Plan of Treatment Health Maintenance Due Date Last Done Comments PHYSICAL (COMPREHENSIVE) 1997 EXAM PERTUSSIS VACCINE 2001 TETANUS VACCINE 2007 CERVICAL CANCER SCREENING 2011 INFLUENZA VACCINE 12/06/2017 HPV VACCINES Aged Out No longer eligible based on patient's age to complete this topic Results Not on filefrom Last 3 Months
[2017-07-11] MEDS ORDERED: ONDANSETRON 4 MG/2 ML (SDV) Z0FRAN ONE (19:59)
[2017-07-11] MEDS ORDERED: ONDANSETRON 4 MG/2 ML (SDV) Z0FRAN IVP ONE (20:00)
[2017-07-11] MEDS ORDERED: KETOROLAC 30 MG/ML VIAL IVP ONE (20:00)
[2017-07-11] MEDS ORDERED: NS IV 1000 ML 1,000 ML IV SCH (20:00)
[2017-07-11 20:04] LABS: BILIRUBIN,URINE NEGATIVE (NEGATIVE); CLARITY,URINE CLEAR; COLOR,URINE YELLOW; GLUCOSE, URINE (UA) NEGATIVE (NEGATIVE); KETONES,URINE NEGATIVE (NEGATIVE); LEUKOCYTE ESTERASE ,URINE NEGATIVE (NEGATIVE); NITRITE,URINE NEGATIVE (NEGATIVE); PH,URINE 6 (5-9); PROTEIN,URINE NEGATIVE (NEGATIVE); UROBILINOGEN,URINE NORMAL (NORMAL)
[2017-07-11 20:06] LABS: BASOPHILS % (AUTO) 0 % (0-10); EOSINOPHILS # (AUTO) 0.1 10^3/uL (0.0-0.3); EOSINOPHILS % (AUTO) 0 % (0-10); HEMATOCRIT 38 % (35-52); HEMOGLOBIN 12.9 G/DL (11.5-16.0); LYMPHOCYTES # (AUTO) 3.1 X 10^3 (1.0-4.0); LYMPHOCYTES % (AUTO) 27 % (12-44); MEAN CORPUSCULAR HEMOGLOBIN 30 PG (25-34); MEAN CORPUSCULAR HGB CONC 34 G/DL (32-36); MEAN CORPUSCULAR VOLUME 87 FL (80-99); MEAN PLATELET VOLUME 9.8 FL (7.4-10.4); MONOCYTES # (AUTO) 0.8 X 10^3 (0.0-1.0); MONOCYTES % (AUTO) 7 % (0-12); NEUTROPHILS # (AUTO) 7.4 X 10^3 (1.8-7.8); NEUTROPHILS % (AUTO) 65 % (42-75); PLATELET COUNT 305 10^3/uL (130-400); RED BLOOD COUNT 4.32 10^6/uL (4.35-5.85); RED CELL DISTRIBUTION WIDTH 13.9 % (10.0-14.5); WHITE BLOOD COUNT 11.4 10^3/uL (4.3-11.0)
--- NOTE | 2017-07-11 20:06 | ED Back Pain ---
General Chief Complaint: Back Problems Stated Complaint: KIDNEY PAIN History of Present Illness Date Seen by Provider: Jul 11, 2017 Time Seen by Provider: 19:45 Initial Comments Patient presents to the emergency room with complaints of sharp bilateral kidney pain, nausea, blood in urine X1 void today, and the pain radiates down her right leg. Patient reports having a diagnosis of lupus 1 week ago by [facility] in [facility]. Location: Lumbar Spine Timing/Duration: 4-6 Hours Pain/Injury Location: Back (low back and kidney pain. ) Radiation: Upper Legs (right leg. ) Modifying Factors: Worse With Movement, Improves With Rest Associated Symptoms: denies symptoms Allergies and Home Medications Allergies Uncoded Allergies: SULFA (Adverse Reaction, Mild, HIVES, 07/11/17) Patient Home Medication List Home Medication List Reviewed: Yes Constitutional: no symptoms reported, see HPI EENTM: see HPI, no symptoms reported Respiratory: no symptoms reported, see HPI Cardiovascular: no symptoms reported, see HPI Gastrointestinal: no symptoms reported, see HPI Genitourinary: see HPI, hematuria (X 1 voi hydrocodone fentanyl hered. ), other (pain over her kidneys) : No Musculoskeletal: see HPI, back pain (low back pain. ) Skin: no symptoms reported, see HPI Psychiatric/Neurological: No Symptoms Reported, See HPI Past Kzltxwr-Nqfbqi-Bwtftr Hx Patient Social History Alcohol Use: Rarely Uses Recreational Drug Use: Yes (THC) Smoking Status: Former Smoker Type Used: Cigarettes Former Smoker, Quit: Jul 06, 2017 Recent Foreign Travel: No Contact w/Someone Who Travel: No Recent Hopitalizations: No Immunizations Up To Date PED Vaccines UTD: Yes Seasonal Allergies Seasonal Allergies: Yes Surgeries History of Surgeries: Yes (GASTRIC SLEEVE) Surgeries: Section, Tubal Ligation Respiratory History of Respiratory Disorde: No Cardiovascular History of Cardiac Disorders: No Neurological History of Neurological Disord: No Genitourinary History of Genitourinary Disor: No Gastrointestinal History of Gastrointestinal Di: No Musculoskeletal History of Musculoskeletal Dis: No Endocrine 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) HEENT History of HEENT Disorders: Yes (LACRIMAL GLAND TUMOR R EYE) Psychosocial History of Psychiatric Problem: Yes (OCD) Behavioral Health Disorders: ADD/ADHD, Anxiety, Bipolar Integumentary History of Skin or Integumenta: No Blood Transfusions History of Blood Disorders: No Physical Exam Vital Signs Capillary Refill : General Appearance: No Apparent Distress, WD/WN HEENT: Normal ENT Inspection Neck: Full Range of Motion, Normal Inspection, Non Tender Cardiovascular: Regular Rate, Rhythm, No Edema, No Gallop, No Murmur, Normal Peripheral Pulses Respiratory: Chest Non Tender, Lungs Clear, Normal Breath Sounds Gastrointestinal: Normal Bowel Sounds Back: Normal Inspection, Other (exquisite tenderness to palpation of lumbar spine and bilateral flanks) Extremity: Normal Capillary Refill, Normal Inspection, Normal Range of Motion Neurologic/Psychiatric: Alert, Oriented x3, No Motor/Sensory Deficits Skin: Normal Color, Warm/Dry Progress/Results/Core Measures Results/Orders Lab Results Laboratory Tests Test 07/11/17 19:40 07/11/17 19:49 Range/Units Urine Color YELLOW Urine Clarity CLEAR Urine pH 6 5-9 Urine Specific [place] 1.015 L 1.016-1.022 Urine Protein NEGATIVE NEGATIVE Urine Glucose (UA) NEGATIVE NEGATIVE Urine Ketones NEGATIVE NEGATIVE Urine Nitrite NEGATIVE NEGATIVE Urine Bilirubin NEGATIVE NEGATIVE Urine Urobilinogen NORMAL NORMAL MG/DL Urine Leukocyte Esterase NEGATIVE NEGATIVE Urine RBC (Auto) 1+ H NEGATIVE Urine RBC 2-5 H /HPF Urine WBC NONE /HPF Urine Squamous Epithelial Cells 10-25 H /HPF Urine Crystals NONE /LPF Urine Bacteria MODERATE H /HPF Urine Casts NONE /LPF Urine Mucus SMALL H /LPF Urine Culture Indicated NO White Blood Count 11.4 H 4.3-11.0 10^3/uL Red Blood Count 4.32 L 4.35-5.85 10^6/uL Hemoglobin 12.9 11.5-16.0 G/DL Hematocrit 38 35-52 % Mean Corpuscular Volume 87 80-99 FL Mean Corpuscular Hemoglobin 30 25-34 PG Mean Corpuscular Hemoglobin Concent 34 32-36 G/DL Red Cell Distribution Width 13.9 10.0-14.5 % Platelet Count 305 130-400 10^3/uL Mean Platelet Volume 9.8 7.4-10.4 FL Neutrophils (%) (Auto) 65 42-75 % Lymphocytes (%) (Auto) 27 12-44 % Monocytes (%) (Auto) 7 0-12 % Eosinophils (%) (Auto) 0 0-10 % Basophils (%) (Auto) 0 0-10 % Neutrophils # (Auto) 7.4 1.8-7.8 X 10^3 Lymphocytes # (Auto) 3.1 1.0-4.0 X 10^3 Monocytes # (Auto) 0.8 0.0-1.0 X 10^3 Eosinophils # (Auto) 0.1 0.0-0.3 10^3/uL Basophils # (Auto) 0.0 0.0-0.1 10^3/uL Sodium Level 137 135-145 MMOL/L Potassium Level 3.7 3.6-5.0 MMOL/L Chloride Level 102 98-107 MMOL/L Carbon Dioxide Level 22 21-32 MMOL/L Anion Gap 13 5-14 MMOL/L Blood Urea Nitrogen 9 7-18 MG/DL Creatinine 0.77 0.60-1.30 MG/DL Estimat Glomerular Filtration Rate > 60 BUN/Creatinine Ratio 12 Glucose Level 92 70-105 MG/DL Calcium Level 9.5 8.5-10.1 MG/DL Total Bilirubin 0.6 0.1-1.0 MG/DL Aspartate Amino Transf (AST/SGOT) 18 5-34 U/L Alanine Aminotransferase (ALT/SGPT) 15 0-55 U/L Alkaline Phosphatase 50 40-136 U/L Total Protein 8.0 6.4-8.2 GM/DL Albumin 4.5 3.2-4.5 GM/DL My Orders Orders - EFRA NORTON APRN Ketorolac Injection (Toradol Injection) (07/11/17 20:00) Ondansetron Injection (Zofran Injectio (07/11/17 20:00) Ns Iv 1000 Ml (Sodium Chloride 0.9%) (07/11/17 20:00) Urine Bedside (07/11/17 19:54) Saline Lock/Iv-Start (07/11/17 19:54) Ua Culture If Indicated (07/11/17 19:54) Cbc With Automated Diff (07/11/17 19:54) Comprehensive Metabolic Panel (07/11/17 19:54) Ct Abd/Pelvis Wo(Kidney Stone) (07/11/17 19:54) Ondansetron Injection (Zofran Injectio (07/11/17 19:59) Medications Given in ED Current Medications Medications Dose Ordered Sig/Ivonne Route Start Time Stop Time Status Last Admin Dose Admin Ketorolac Tromethamine 15 mg ONCE ONCE IVP 07/11/17 20:00 07/11/17 20:01 DC 07/11/17 20:04 15 MG Ondansetron HCl 4 mg ONCE ONCE IVP 07/11/17 20:00 07/11/17 20:01 DC 07/11/17 20:04 4 MG Diagnostic Imaging Diagonstic Imaging: Xray Plain Films/CT/US/NM/MRI: chest Comments NAME: SUREKHA LEBLANC [facility] REC#: [id number] PT STATUS: REG ER : 1990 PHYSICIAN: EFRA NORTON SOCIAL WORK PROFESSOR ADMIT DATE: 07/11/17/ER Draft Date of Exam:07/11/17 CT ABD/PELVIS WO(KIDNEY STONE) Clinical indication: Patient with bilateral posterior back pain, right flank pain with hematuria x3 weeks. Patient has had nausea, vomiting and diarrhea x1.5 weeks. Exam: CT exam of the abdomen and pelvis is performed without IV or oral contrast using stone protocol. Coronal and sagittal reformatted images were created. Comparisons: None. Findings: Visualized lung bases: Unremarkable. Liver: Unremarkable as visualized. Gallbladder: Unremarkable. Pancreas: Unremarkable as visualized. Spleen: Unremarkable as visualized. Adrenal glands: Unremarkable. Kidneys/ ureters: Unremarkable as visualized. Aorta: Unremarkable as visualized. Lymph Nodes: There are multiple small paraaortic lymph nodes and lymph nodes seen throughout the mesentery. Intraabdominal/ retroperitoneal contents: Unremarkable. Intestines: Postop changes to the stomach are seen which may be related to gastroplasty. Otherwise intestines are unremarkable. Appendix: Unremarkable. Bladder: Unremarkable as visualized. Pelvic organs: Unremarkable as visualized. There is minimal fluid in the pelvis, likely physiologic. Extra abdominal/ pelvis regions: Unremarkable. Abdominal wall: Unremarkable. Bones: Unremarkable. Impression: 1: There are small subcentimeter lymph nodes in the paraaortic and mesenteric region which may be related to mesenteric adenitis. 2: Otherwise, the remainder of the CT scan exam shows no acute abdominal or pelvic process. There is no urinary tract stone seen. 3: Postop changes to the stomach. Dictated on workstation # [id number] Dict: 07/11/172023 Trans: 07/11/172029 [facility] [id number] Interpreted by: NEYDA MARTINEZ MD Electronically signed by: Departure Impression Impression: Primary Impression: Low back pain Disposition: 01 HOME, SELF-CARE Condition: Stable Departure-Patient Inst. Decision time for Depature: 20:33 Referrals: NO,LOCAL PHYSICIAN (PCP) Primary Care Physician Patient Instructions: Low Back Pain (DC) Add. Discharge Instructions: 1. Antiinflammatories as directed in addition to muscle relaxers, follow up with your doctor next week for recheck 2. Return to ER for any concerns All discharge instructions reviewed with patient and/or family. Voiced understanding. Scripts Cyclobenzaprine HCl (Cyclobenzaprine HCl) 5 Mg Tablet 5 MG PO TID Y for PAIN-MILD TO MODERATE, #10 TAB Prov: EFRA NORTON SOCIAL WORK PROFESSOR 07/11/17 Naproxen Sodium (Anaprox Ds) 550 Mg Tablet 550 MG PO BID Y for PAIN-SEVERE, #14 TAB Prov: EFRA NORTON SOCIAL WORK PROFESSOR 07/11/17 EFRA NORTNO APRN Jul 11, 2017 20:06
[2017-07-11 20:19] LABS: ALANINE AMINOTRANSFERASE 15 U/L (0-55); ALBUMIN 4.5 GM/DL (3.2-4.5); ALKALINE PHOSPHATASE 50 U/L (40-136); BILIRUBIN,TOTAL 0.6 MG/DL (0.1-1.0); BUN/CREATININE RATIO 12; CALCIUM 9.5 MG/DL (8.5-10.1); CARBON DIOXIDE 22 MMOL/L (21-32); CHLORIDE 102 MMOL/L (98-107); CREATININE SERUM 0.77 MG/DL (0.60-1.30); GFR ESTIMATED > 60; GLUCOSE 92 MG/DL (70-105); POTASSIUM 3.7 MMOL/L (3.6-5.0); SODIUM 137 MMOL/L (135-145)
[2017-07-11 20:25] LABS: BACTERIA,URINE MODERATE /HPF
[2017-07-11] MEDS ORDERED: AMPH10CA (20:29)
[2017-07-11] MEDS ORDERED: CLON1TAB3 (20:29)
[2017-07-11] MEDS ORDERED: FLUO20CA25 (20:29)
--- NOTE | 2017-07-11 20:31 | Diagnostic Imaging Report ---
Clinical indication: Patient with bilateral posterior back pain, right flank pain with hematuria x3 weeks. Patient has had nausea, vomiting and diarrhea x1.5 weeks. Exam: CT exam of the abdomen and pelvis is performed without IV or oral contrast using stone protocol. Coronal and sagittal reformatted images were created. Comparisons: None. Findings: Visualized lung bases: Unremarkable. Liver: Unremarkable as visualized. Gallbladder: Unremarkable. Pancreas: Unremarkable as visualized. Spleen: Unremarkable as visualized. Adrenal glands: Unremarkable. Kidneys/ ureters: Unremarkable as visualized. Aorta: Unremarkable as visualized. Lymph Nodes: There are multiple small paraaortic lymph nodes and lymph nodes seen throughout the mesentery. Intraabdominal/ retroperitoneal contents: Unremarkable. Intestines: Postop changes to the stomach are seen which may be related to gastroplasty. Otherwise intestines are unremarkable. Appendix: Unremarkable. Bladder: Unremarkable as visualized. Pelvic organs: Unremarkable as visualized. There is minimal fluid in the pelvis, likely physiologic. Extra abdominal/ pelvis regions: Unremarkable. Abdominal wall: Unremarkable. Bones: Unremarkable. Impression: 1: There are small subcentimeter lymph nodes in the paraaortic and mesenteric region which may be related to mesenteric adenitis. 2: Otherwise, the remainder of the CT scan exam shows no acute abdominal or pelvic process. There is no urinary tract stone seen. 3: Postop changes to the stomach. Dictated by: Dictated on workstation # [id number]
[2017-07-11] MEDS ORDERED: NAPR-1070 PO (20:35)
[2017-07-11] MEDS ORDERED: CYCL5TAB PO (20:35)
[2017-07-11 20:39] VITALS: BP 130/90
== END 2017-07-11 20:39 | disposition home or self-care (01) ==
LOC: EDUNIT# 19:26 → ER 19:28
DX: M54.5 Low back pain (principal); F41.9 Anxiety disorder, unspecified; F90.9 Attention-deficit hyperactivity disorder, unspecified type; F31.9 Bipolar disorder, unspecified; Z88.2 Allergy status to sulfonamides; Z87.891 Personal history of nicotine dependence; Z87.59 Personal history of other complications of pregnancy, childbirth and the puerperium; Z98.51 Tubal ligation status; Z87.39 Personal history of other diseases of the musculoskeletal system and connective tissue
CPT/HCPCS: 36415; 74176; 80053; 81000; 84703; 85025; 96361; 96374; 96375

== ENCOUNTER 2018-12-10 19:59 | Emergency (ER) | payer MEDICAID ==
[~2018-12-10] VITALS: Ht 152.4 cm; Wt 86.2 kg
[~2018-12-10 19:59] MED LIST: AMPH10CA; CLON1TAB13; CYCL5TAB PO; FLUO20CA25; NAPR-1070 PO
--- OUTSIDE RECORDS SUMMARY | 2018-12-10 20:03 | XMS REPORT | Clinical Summary ---
Author Author [facility] Organization [facility] Address Unknown Phone Unavailable Care Team Providers Care Oven Laborer Name Role Phone Yuli Monge MD Unavailable Delta Rabago MD Unavailable Source Comments Some departments are not documenting in the electronic medical record. If you d o not see the information that you expected, contact Release of Information in [facility] [employer] Information Management department at [phone] for further assistan ce in locating additional records.[facility] Allergies Comments Active Allergy Reactions Severity Noted Date Sulfa (Sulfonamide HIVES 05/29/2014 Antibiotics) Medications End Date Status Medication Sig Dispensed Refills Start Date Active amphetamine-dextroampheta Take 30 mg by 0 mine(+) (ADDERALL) 30 mg mouth once tablet Active Problems Problem Noted Date Headache 05/29/2014 Idiopathic orbital inflammatory syndrome, 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 Discussed the risk of recurrence. OK to remain off steroids. Recheck in one month. Family History Medical History Relation Name Comments Diabetes Father Coronary Artery Disease Maternal Grandfather Autoimmune Disease Mother Thyroid Disease Mother Cancer Paternal Grandfather Stroke Paternal Grandmother Blindness Neg Hx Cataract Neg Hx Glaucoma Neg Hx Hypertension Neg Hx Macular Degen Neg Hx Neurologic Disorder Neg Hx Retinal Detachment Neg Hx Strabismus Neg Hx Relation Name Status Comments Father Maternal Grandfather Mother Paternal Grandfather Paternal Grandmother Social History Date Tobacco Use Types Packs/Day Years Used Current Some Day Smoker Cigarettes 0 Smokeless Tobacco: Former Chew Quit: 05/08/2012 User Comments: 5 cigs a week. Drinks/Week oz/Week Comments Alcohol Use 2 Standard drinks or equivalent 1.0 Yes Sex Assigned at Date Recorded Not on file Industry Job Start Date Occupation Not on file Not on file Not on file Travel End Travel History Travel Start No recent travel history available. Last Filed Vital Signs Reading Time Taken Comments Vital Sign 128/81 06/24/2014 2:49 PM BOAT TESTER Blood Pressure 85 06/24/2014 2:49 PM BOAT TESTER Pulse - - Temperature - - Respiratory Rate - - Oxygen Saturation - - Inhaled Oxygen Concentration 85.7 kg (189 lb) 06/24/2014 2:49 PM BOAT TESTER Weight 154.9 cm (5' 1") 06/24/2014 2:49 PM BOAT TESTER Height 35.71 06/24/2014 2:49 PM BOAT TESTER Body Mass Index Plan of Treatment Health Maintenance Due Date Last Done Comments PHYSICAL (COMPREHENSIVE) 1997 EXAM HIV SCREENING 2005 DTAP/TDAP VACCINES (1 - 2008 Tdap) CERVICAL CANCER SCREENING 2011 INFLUENZA VACCINE 02/05/2019 Results Not on filefrom Last 3 Months Advance Directives Patient Sorter Laundry Articles Explanation Type Date Recorded Advance Directive/DPOA
--- OUTSIDE RECORDS SUMMARY | 2018-12-10 20:03 | XMS REPORT | Clinical Summary ---
Author Author [facility] Organization [facility] Address Unknown Phone Unavailable Care Team Providers Care Personal Lines Agent Name Role Phone Jeniffer Tamayo MD PCP Allergies Comments Active Allergy Reactions Severity Noted Date Sulfa (Sulfonamide 11/27/2014 Antibiotics) Medications End Date Status Medication Sig Dispensed Refills Start Date Active traMADol (ULTRAM) 50 mg Take 50 mg by 0 tablet mouth every 6 (six) hours as needed for pain. Active gabapentin (NEURONTIN) Take 300 mg 0 300 MG capsule by mouth 3 (three) times a day. Active meloxicam (MOBIC) 15 MG Take 15 mg by 0 tablet mouth daily. Active methotrexate 2.5 MG Take by mouth 0 tablet 3 (three) times a week. Active folic acid (FOLVITE) 1 MG Take 1 mg by 0 tablet mouth daily. Active dextroamphetamine-ampheta Take 30 mg by 0 mine (ADDERALL XR) 30 MG mouth every XR 24 hr capsule morning. Active Problems Not on file Social History Date Tobacco Use Types Packs/Day Years Used Current Every Day Smoker Drinks/Week oz/Week Comments Alcohol Use 6X PER YEAR Yes Sex Assigned at Date Recorded Not on file Industry Job Start Date Occupation Not on file Not on file Not on file Travel End Travel History Travel Start No recent travel history available. Last Filed Vital Signs Reading Time Taken Comments Vital Sign 123/67 11/27/2014 1:27 PM CDT Blood Pressure 99 11/27/2014 1:27 PM CDT Pulse 36.6 C (97.9 F) 11/27/2014 1:27 PM CDT Temperature 16 11/27/2014 1:27 PM CDT Respiratory Rate 100% 11/27/2014 1:27 PM CDT Oxygen Saturation - - Inhaled Oxygen Concentration 77.1 kg (170 lb) 11/27/2014 1:27 PM CDT Weight - - Height - - Body Mass Index Plan of Treatment Not on file Results Not on filefrom Last 3 Months Insurance Type Payer Benefit Subscriber ID Effective Phone Address Plan / Dates Group COMMERCIAL-NONCONTRACTED MISC xxxxxxxxxxx 2014-P COMMERCIAL resent NONCONTRAC NOAM Opal Trimble Personal/F Self 1990 [address] (Home) [place] [address]
--- OUTSIDE RECORDS SUMMARY | 2018-12-10 20:04 | XMS REPORT ---
Author Author Migration, Doctor Organization [facility] Address Unknown Phone Unavailable Care Team Providers Care Invoice Classification Clerk Name Role Phone Migration, Doctor Unavailable Unavailable PROBLEMS Type Condition ICD9-CM Code [id number] Code Onset Dates Condition Status SNOMED Code Problem Acute sinusitis, unspecified 461.9 Active 50379014 Problem Raynaud''s disease without gangrene I73.00 Active 268683965 Problem Screening examination for venereal disease V74.5 Active 656956826 Problem Counseling on substance use and abuse V65.42 Active 262872831 Problem Unspecified vaginitis and vulvovaginitis 616.10 Active 152235216 ALLERGIES No Information ENCOUNTERS Encounter Location Date Diagnosis [address] [address] September, [address] [address] September, [address] [address] Aug, disorder O92.70 [facility] [address] [place] [address] Aug, Morbid obesity E66.01 ; disorder O92.70 and Raynaud''s disease without gangrene I73.00 [facility] [address] [place] [address] Dec, Cough R05 ; Congestion of upper respiratory tract J98.8 and BMI 40.0- 44.9, adult Z68.41 [facility] [address] [place] [address] Dec, Dental examination Z01.20 [facility] [id number] [address] 14 Aug, 2014 [facility] [address] [place] [address] Aug, [facility] [id number], [place] [address] September, [facility] [address] [facility] [id number] [address] September, [facility] [id number], [place] [address] September, [facility] [address] [facility] [id number] [address] September, [facility] [id number], [place] [address] September, [facility] [address], [place] [address] September, [facility] [address], [place] [address] May, [facility] [address], [place] [address] May, [facility] [address], [place] [address] May, [facility] [id number], [place] [address] May, [facility] [id number], [place] [address] Apr, [facility] [id number], [place] [address] Apr, IMMUNIZATIONS No Known Immunizations SOCIAL HISTORY Never Assessed REASON FOR VISIT [place] [place]AN OF CARE VITAL SIGNS MEDICATIONS Unknown Medications RESULTS No Results PROCEDURES No Known procedures INSTRUCTIONS MEDICATIONS ADMINISTERED No Known Medications MEDICAL (GENERAL) HISTORY Type Description Date Medical History Migraines Medical History Ulcers Medical History Anemia Medical History raynauds syndrome Surgical History 01/03/16 Surgical History Gastric Sleeve 12/23/11 Surgical History Internal Bleeding 10/25/13 Hospitalization History Previous surgeries
--- OUTSIDE RECORDS SUMMARY | 2018-12-10 20:04 | XMS REPORT ---
Author Author Migration, Doctor Organization [facility] Address Unknown Phone Unavailable Care Team Providers Care Forming Roll Operator Heavy Duty Name Role Phone Migration, Doctor Unavailable Unavailable PROBLEMS Type Condition ICD9-CM Code [id number] Code Onset Dates Condition Status SNOMED Code Problem Acute sinusitis, unspecified 461.9 Active 49443290 Problem Raynaud''s disease without gangrene I73.00 Active 810817222 Problem Screening examination for venereal disease V74.5 Active 431107637 Problem Counseling on substance use and abuse V65.42 Active 096311894 Problem Unspecified vaginitis and vulvovaginitis 616.10 Active 472935453 ALLERGIES Substance Reaction Event Type Date Status Augmentin 875-125 Mg Tablet severe abd pain Non Drug Allergy Aug, Active Sulfa (sulfonamide Antibiotics) Unknown Non Drug Allergy Aug, Active ENCOUNTERS Encounter Location Date Diagnosis [address] [address] Oct, [address] [address] September, Encounter for Depo-Provera contraception Z30.[address] [address] September, [address] [address] Aug, disorder O92.70 [facility] [address] [place] [address] Aug, Morbid obesity E66.01 ; disorder O92.70 and Raynaud''s disease without gangrene I73.00 [facility] [address] [facility] [id number] [place] [address] Dec, Cough R05 ; Congestion of upper respiratory tract J98.8 and BMI 40.0- 44.9, adult Z68.41 [facility] [address] [place] [address] Dec, Dental examination Z01.20 [facility] [address], [place] [address] Aug, [facility] [address], [place] [address] Aug, [facility] [address], [place] [address] September, [facility] [address], [place] [address] September, [facility] [address] [place] [address] September, [facility] [address] [place] [address] September, [facility] [address] [place] [address] September, [facility] [address], [place] [address] September, [facility] [address], [place] [address] May, [facility] [address], [place] [address] May, [facility] [address], [place] [address] May, [facility] [id number], [place] [address] May, [facility] [address], [place] [address] Apr, [facility] [address], [place] [address] Apr, IMMUNIZATIONS No Known Immunizations SOCIAL HISTORY Never Assessed REASON FOR VISIT EMR-[facility] [place] [place] PLAN OF CARE VITAL SIGNS MEDICATIONS Medication Instructions Dosage Frequency Start Date End Date Duration Status Flagyl 500 mg 1 tablet by Oral route 2 times per day for 7 days September, Active Doxycycline Hyclate 100 mg 1 tablet by Oral route 2 times per day for 10 days May, Active RESULTS No Results PROCEDURES No Known procedures INSTRUCTIONS MEDICATIONS ADMINISTERED No Known Medications MEDICAL (GENERAL) HISTORY Type Description Date Medical History Migraines Medical History Ulcers Medical History Anemia Medical History raynauds syndrome Surgical History 01/03/16 Surgical History Gastric Sleeve 12/23/11 Surgical History Internal Bleeding 10/25/13 Hospitalization History Previous surgeries
--- OUTSIDE RECORDS SUMMARY | 2018-12-10 20:04 | XMS REPORT ---
Author Author LESLIE OSWALD Organization [facility] [place] Address [address] [place] [address] Phone Unavailable Care Team Providers Care Employee Benefits Administrator Name Role Phone LESLIE OSWALD Unavailable Unavailable PROBLEMS Type Condition ICD9-CM Code [id number] Code Onset Dates Condition Status SNOMED Code Problem Acute sinusitis, unspecified 461.9 Active 34256624 Problem Unspecified vaginitis and vulvovaginitis 616.10 Active 177053229 Problem Counseling on substance use and abuse V65.42 Active 549203332 Problem Screening examination for venereal disease V74.5 Active 046258253 ALLERGIES Substance Reaction Event Type Date Status Augmentin 875-125 Mg Tablet severe abd pain Non Drug Allergy Dec, Active Sulfa (sulfonamide Antibiotics) Unknown Non Drug Allergy Dec, Active ENCOUNTERS Encounter Location Date Diagnosis [facility] [id number] [place] [address] Dec, Cough R05 ; Congestion of upper respiratory tract J98.8 and BMI 40.0- 44.9, adult [facility]68.41 [facility] [address] [place] [address] Dec, Dental examination Z01.20 [facility] [place] [id number] [place] [address] Aug, [facility] [place] [id number] [place] [address] Aug, [facility] [place] [id number] [place] [address] September, [facility] [place] [id number] [place] [address] September, [facility] [place] [id number] [place] [address] September, [facility] [place] [id number], [place] [address] September, [facility] [place] [address], [place] [address] September, [facility] [place] [id number], [place] [address] September, [facility] [place] [address], [place] [address] May, [facility] [place] [address], [place] [address] May, [facility] [place] [address] [place] [address] May, [facility] [place] [address], [place] [address] May, [facility] [place] [address], [place] [address] Apr, [facility] [place] [id number], [place] [address] Apr, IMMUNIZATIONS No Known Immunizations SOCIAL HISTORY Never Assessed REASON FOR VISIT congestion and cough x2 days JStrasserRN PLAN OF CARE Activity Details Follow Up prn Reason: VITAL SIGNS Height 60 in 2017-12-26 Weight 220.8 lbs 2017-12-26 Temperature 96.9 degrees Fahrenheit 2017-12-26 Heart Rate 92 bpm 2017-12-26 Respiratory Rate 20 2017-12-26 BMI 43.12 kg/m2 2017-12-26 Blood pressure systolic 100 mmHg 2017-12-26 Blood pressure diastolic 70 mmHg 2017-12-26 MEDICATIONS Medication Instructions Dosage Frequency Start Date End Date Duration Status Prozac Active Adderall Active Clindamycin HCl 150 MG Orally every 8 hrs 2 capsules 8h 10 day(s) Not-Taking Tramadol HCl 50 MG Orally every 6 hrs 1 -2 6h Not-Taking Percocet 7.5-325 MG Orally every 4-6 hours as needed 1-2 tablets as needed Dec, Not-Taking Tessalon Perles 100 mg Orally Three times a day 1 capsule as needed 8h Dec, Dec, 07 days Active Klonopin Active RESULTS No Results PROCEDURES No Known procedures INSTRUCTIONS MEDICATIONS ADMINISTERED No Known Medications MEDICAL (GENERAL) HISTORY Type Description Date Medical History Migraines Medical History Ulcers Medical History Anemia Surgical History 01/03/16 Surgical History Gastric Sleeve 12/23/11 Surgical History Internal Bleeding 10/25/13 Hospitalization History Previous surgeries
--- OUTSIDE RECORDS SUMMARY | 2018-12-10 20:04 | XMS REPORT | Continuity of Care Document ---
Author Organization Unknown Address Unknown Phone Unavailable Allergies Active Description Code Type Severity Reaction Onset Reported/Identified Relationship to Patient Clinical Status Yes Augmentin 875-125 mg tablet Drug Allergy N/A N/A 05/22/2013 Yes Sulfa (Sulfonamide Antibiotics) Drug Allergy N/A N/A 09/09/2013 Yes SULFA SULFA Mild HIVES 07/11/2017 Medications There is no data. Problems Date Dx Coded Attending Type Code Diagnosis Diagnosed By 05/16/2013 SERA ANDERSON DO 461.9 SINUSITIS ACUTE 05/16/2013 SERA ANDERSON DO V65.42 COUNSELING - SMOKING CESSATION 05/16/2013 NILS LILLY APRN 461.9 SINUSITIS ACUTE 05/16/2013 NILS LILLY APRN V65.42 COUNSELING - SMOKING CESSATION 09/09/2013 NILS LILLY APRN A 616.10 VAGINITIS AND VULVOVAGINITIS UNSPECIFIED 09/09/2013 NILS LILLY APRN V74.5 STD SCREEN 03/31/2015 ADOLPH MARTINEZ, HALLIE See Ot R06.83 SNORING 07/13/2017 EFRA NORTON APRN Ot F31.9 BIPOLAR DISORDER, UNSPECIFIED 07/13/2017 EFRA NORTON APRN Ot F41.9 ANXIETY DISORDER, UNSPECIFIED 07/13/2017 EFRA NORTON APRN Ot F90.9 ATTENTION-DEFICIT HYPERACTIVITY DISORDER 07/13/2017 EFRA NORTON APRN Ot M54.5 LOW BACK PAIN 07/13/2017 EFRA NORTON APRN Ot Z87.39 PERSONAL HISTORY OF DISEASES OF THE MS S 07/13/2017 EFRA NORTON APRN Ot Z87.59 PERSONAL HISTORY OF COMP OF PREG, CHLDBR 07/13/2017 EFRA NORTON APRN Ot Z87.891 PERSONAL HISTORY OF NICOTINE DEPENDENCE 07/13/2017 EFRA NORTON APRN Ot Z88.2 ALLERGY STATUS TO SULFONAMIDES STATUS 07/13/2017 EFRA NORTON APRN Ot Z98.51 TUBAL LIGATION STATUS 07/17/2017 EFRA NORTON LOOM CLEANER Ot F31.9 BIPOLAR DISORDER, UNSPECIFIED 07/17/2017 EFRA NORTON LOOM CLEANER Ot F41.9 ANXIETY DISORDER, UNSPECIFIED 07/17/2017 EFRA NORTON APRN Ot F90.9 ATTENTION-DEFICIT HYPERACTIVITY DISORDER 07/17/2017 EFRA NORTON LOOM CLEANER Ot M54.5 LOW BACK PAIN 07/17/2017 EFRA NOROTN LOOM CLEANER Ot Z87.39 PERSONAL HISTORY OF DISEASES OF THE MS S 07/17/2017 EFRA NORTON LOOM CLEANER Ot Z87.59 PERSONAL HISTORY OF COMP OF PREG, CHLDBR 07/17/2017 EFRA NORTON APRN Ot Z87.891 PERSONAL HISTORY OF NICOTINE DEPENDENCE 07/17/2017 EFRA NORTON APRN Ot Z88.2 ALLERGY STATUS TO SULFONAMIDES STATUS 07/17/2017 EFAR NORTON LOOM CLEANER Ot Z98.51 TUBAL LIGATION STATUS Procedures Code [place] [address] ROUTINE VENIPUNCTURE 09/09/2013 82802 TRICHOMONAS (IN-HOUSE) 09/09/2013 85657 [facility]PHILLIS-[facility] 09/10/2013 86571 HIV (STATE [facility]) 09/10/2013 71480 GC/CHLAM PROBE ([facility]) 09/10/2013 73721 CULTURE UROGENITAL 09/12/2013 Results Test Result Range Complete urinalysis with reflex to culture - 07/11/17 19:40 Urine color determination YELLOW NRG Urine clarity determination CLEAR NRG Urine pH measurement by test strip 6 5-9 Specific gravity of urine by test strip 1.015 1.016-1.022 Urine protein assay by test strip, semi-quantitative NEGATIVE NEGATIVE Urine glucose detection by automated test strip NEGATIVE NEGATIVE Erythrocytes detection in urine sediment by light microscopy 1+ NEGATIVE Urine ketones detection by automated test strip NEGATIVE NEGATIVE Urine nitrite detection by test strip NEGATIVE NEGATIVE Urine total bilirubin detection by test strip NEGATIVE NEGATIVE Urine urobilinogen measurement by automated test strip (mass/volume) NORMAL NORMAL Urine leukocyte esterase detection by dipstick NEGATIVE NEGATIVE Automated urine sediment erythrocyte count by microscopy (number/high power field) [HPF] NRG Automated urine sediment leukocyte count by microscopy (number/high power field) NONE NRG Bacteria detection in urine sediment by light microscopy MODERATE NRG Squamous epithelial cells detection in urine sediment by light microscopy 10-25 NRG Crystals detection in urine sediment by light microscopy NONE NRG Casts detection in urine sediment by light microscopy NONE NRG Mucus detection in urine sediment by light microscopy SMALL NRG Complete urinalysis with reflex to culture NO NRG Complete blood count (CBC) with automated white blood cell (WBC) differential - 07/11/17 19:49 Blood leukocytes automated count (number/volume) 11.4 10*3/uL 4.3-11.0 Blood erythrocytes automated count (number/volume) 4.32 10*6/uL 4.35-5.85 Venous blood hemoglobin measurement (mass/volume) 12.9 g/dL 11.5-16.0 Blood hematocrit (volume fraction) 38 % 35-52 Automated erythrocyte mean corpuscular volume 87 [foz_us] 80-99 Automated erythrocyte mean corpuscular hemoglobin (mass per erythrocyte) 30 pg 25-34 Automated erythrocyte mean corpuscular hemoglobin concentration measurement (mass/volume) 34 g/dL 32-36 Automated erythrocyte distribution width ratio 13.9 % 10.0- 14.5 Automated blood platelet count (count/volume) 305 10*3/uL 130-400 Automated blood platelet mean volume measurement 9.8 [foz_us] 7.4-10.4 Automated blood neutrophils/100 leukocytes 65 % 42-75 Automated blood lymphocytes/100 leukocytes 27 % 12-44 Blood monocytes/100 leukocytes 7 % 0-12 Automated blood eosinophils/100 leukocytes 0 % 0-10 Automated blood basophils/100 leukocytes 0 % 0-10 Blood neutrophils automated count (number/volume) 7.4 10*3 1.8-7.8 Blood lymphocytes automated count (number/volume) 3.1 10*3 1.0-4.0 Blood monocytes automated count (number/volume) 0.8 10*3 0.0- 1.0 Automated eosinophil count 0.1 10*3/uL 0.0-0.3 Automated blood basophil count (count/volume) 0.0 10*3/uL 0.0-0.1 Comprehensive metabolic panel - 07/11/17 19:49 Serum or plasma sodium measurement (moles/volume) 137 mmol/L 135-145 Serum or plasma potassium measurement (moles/volume) 3.7 mmol/L 3.6-5.0 Serum or plasma chloride measurement (moles/volume) 102 mmol/L 98-107 Carbon dioxide 22 mmol/L 21-32 Serum or plasma anion gap determination (moles/volume) 13 mmol/L 5-14 Serum or plasma urea nitrogen measurement (mass/volume) 9 mg/dL 7-18 Serum or plasma creatinine measurement (mass/volume) 0.77 mg/dL 0.60-1.30 Serum or plasma urea nitrogen/creatinine mass ratio 12 NRG Serum or plasma creatinine measurement with calculation of estimated glomerular filtration rate > NRG Serum or plasma glucose measurement (mass/volume) 92 mg/dL 70-105 Serum or plasma calcium measurement (mass/volume) 9.5 mg/dL 8.5-10.1 Serum or plasma total bilirubin measurement (mass/volume) 0.6 mg/dL 0.1-1.0 Serum or plasma alkaline phosphatase measurement (enzymatic activity/volume) 50 U/L 40-136 Serum or plasma aspartate aminotransferase measurement (enzymatic activity/volume) 18 U/L 5-34 Serum or plasma alanine aminotransferase measurement (enzymatic activity/volume) 15 U/L 0-55 Serum or plasma protein measurement (mass/volume) 8.0 g/dL 6.4-8.2 Serum or plasma albumin measurement (mass/volume) 4.5 g/dL 3.2-4.5 Encounters ACCT No. Visit Date/Time Discharge Status Pt. Type Provider Facility Loc./Unit Complaint [id number] 09/09/2013 16:53:00 09/09/2013 23:59:59 CLS Outpatient NILS LILLY APRN [id number] 05/16/2013 10:16:00 05/16/2013 23:59:59 [place] [id number] 11/20/2008 10:48:00 11/20/2008 23:59:59 CLS Outpatient JOANN KIM [id number] 07/11/2017 19:28:00 07/11/2017 20:39:00 DIS Outpatient EFRA NORTON APRN [facility] ER KIDNEY PAIN [id number] 03/31/2015 14:01:00 03/31/2015 14:38:00 DIS Outpatient HALLIE FARFAN MD [facility] SLEEP SNORING,CHOKING DURING SLEEP,EXCESSIVE DAYTIME SLE [id number] 12/10/2018 20:00:00 ACT Emergency BRETT DO, JIM D [facility] ER FS LT HAND FINGER LAC [id number] 11/29/2018 13:45:00 11/29/2018 23:59:59 CLS Out[facility]
--- OUTSIDE RECORDS SUMMARY | 2018-12-10 20:04 | XMS REPORT | Encounter Summary ---
Author Author [facility] Organization [facility] Address Unknown Phone Unavailable Care Team Providers Care Strip Deburrer Name Role Phone Jeniffer Tamayo MD PCP Reason for Visit * Reason Comments Headache HEADACHE DX WITH MASS IN MAY OPTHOMOLOGIST LAKISHA JUST GIVES ME STEROIDS Encounter Details Care Team Description Date Type Department Una Fitzgerald Jr., MD [address] [place], [place] [id number] Headache, unspecified headache type (Primary Dx); Blurred vision, right eye 11/27/2014 Emergency [facility] [address] [place], [place] [id number] Social History Date Tobacco Use Types Packs/Day Years Used Current Every Day Smoker Drinks/Week oz/Week Comments Alcohol Use 6X PER YEAR Yes Sex Assigned at Date Recorded Not on file Industry Job Start Date Occupation Not on file Not on file Not on file Travel End Travel History Travel Start No recent travel history available. documented as of this encounter Last Filed Vital Signs Reading Time Taken [...] - Height - - Body Mass Index documented in this encounter Discharge Instructions * Instructions* Una Fitzgerald Jr., MD - 11/27/2014 Headache, Unspecified Headaches can be caused by a number of things. The cause of your headache isn t clear. But it doesnt seem to be a sign of any serious illness. You could have a tension headache or a migraine headache. Stress can cause a tension headache. This can happen if you tense the muscles of your shoulders, neck, and scalp without knowing it. If this stress lasts long e nough, you may develop a tension headache. A migraine headache is caused by changes in blood flow to the brain. A migraine may be triggered by emotional stress or depression, or by hormone changes during the menstrual cycle. Other triggers include control pills and other medic rere, alcohol or caffeine, foods with tyramine, eye strain, weather changes, mis sed meals, and lack of sleep or oversleeping. Other causes of headache include: 1. Viral illness with high fever 2. Head injury with concussion 3. Sinus, ear, or throat infection 4. Dental pain and jaw joint (TMJ) pain More serious but less common causes of headache include stroke, brain hemorrhage , brain tumor, meningitis, and encephalitis. Home care Follow these tips when taking care of yourself at home: Dont drive yourself home if you were given pain medicine for your headache . Instead, have someone else drive you home. Try to sleep when you get home. You should feel much better when you wake up. Apply heat to the back of your neck to ease a neck muscle spasm. Take care of a migraine headache by putting an ice pack on your forehead or at the base of y our skull. If you have nausea or vomiting, eat a light diet until your headache eases. If you have a migraine headache, use sunglasses when in the daylight or aroun d bright indoor lighting until your symptoms get better. Bright glaring light ca n make this type of headache worse. Follow-up care Follow up with your health care provider if your headache doesnt get better w ithin the next 24 hours. Talk with your provider If you have frequent headaches. He or she can help figure out a treatment plan. By knowing the earliest signs of headache, and starting treatment right away, you may be able to stop the pain yourself. When to seek medical advice Call your health care provider right awayif any of these occur: Your head pain gets worse Your head pain doesnt get better within 24 hours You arent able to keep liquids down (repeated vomiting) Fever of 100.4F (38C) or higher, or as directed by your health care provi mya Stiff neck Extreme drowsiness, confusion, or fainting Dizziness or dizziness with spinning sensation (vertigo) Weakness in an arm or leg or one side of your face You have difficulty talking or seeing [id number] [employer]. [address] [place] [address] 7. All rights reserved. This information is not intended as a substitute for pro fessional medical care. Always follow your healthcare professional's instruction s. Blurred Vision Blurred vision is the loss of sharpness of vision and the inability to see small details. Any changes in your vision whether sudden or gradual should be checked out by an medicaid specialist. There are many causes for vision changes including eye disease, a medicine side effect, or a condition like diabetes. Vision changes should never be ignored. Th ey can get worse leading to permanent vision loss, which could cause a big esparza e in the quality of your life. Home Care 5. Take measures to prevent falling at home. Keep walkways clear of objects you may trip over. Use non-slip pads under rug s. Do not walk in poorly lit areas. Be cautious when going up and down curbs, and walking on uneven sidewalks. 6. Brighter lighting in your home may help you see better. Follow Up with an medicaid specialist or as advised by our staff. Some people misunderstand wha t kind of eye doctor they should see. There are two types to consider: An optometristis a licensed doctor of optometry (but not a medical doctor). They specialize in eye exams and may diagnose some eye problems. They also pres cribe glasses and contact lenses. An ophthalmologistis a medical doctor who specialize in eye care. They diag nose and treat all eye diseases, prescribe medicines and perform eye surgery. Th ey may also prescribe glasses and contact lenses. An sales and service officer can provide a basic screening eye exam for much less cost than an learning disabilities resource teacher. The sales and service officer can tell you if your condition needs the servi fabricio of an learning disabilities resource teacher. Get Prompt Medical Attention if any of the following occur: Sudden change in your vision Eye pain, redness, or discharge from your eyelid Blurriness Dark spots in your field of vision Halos around lights Floaters (dots or strings moving across your field of vision) Sudden flash of light inside your eye Dimness of vision Partial or complete loss of vision [id number] [employer]. [address] [place] [address], [place], [place] [address] 7. All rights reserved. This information is not intended as a substitute for pro fessional medical care. Always follow your healthcare professional's instruction s. documented in this encounter Medications at Time of Discharge Start Date End Date Medication Sig Dispensed Refills dextroamphetamine-ampheta Take 30 mg by 0 mine (ADDERALL XR) 30 MG mouth every XR 24 hr capsule morning. folic acid (FOLVITE) 1 MG Take 1 mg by 0 tablet mouth daily. gabapentin (NEURONTIN) Take 300 mg 0 300 MG capsule by mouth 3 (three) times a day. meloxicam (MOBIC) 15 MG Take 15 mg by 0 tablet mouth daily. methotrexate 2.5 MG Take by mouth 0 tablet 3 (three) times a week. traMADol (ULTRAM) 50 mg Take 50 mg by 0 tablet mouth every 6 (six) hours as needed for pain. 11/27/2014 12/27/2014 HYDROcodone-acetaminophen Take one 20 tablet 0 (NORCO) 5-325 mg per tablet by tablet mouth every 6 (six) hours as needed for pain. documented as of this encounter ED Notes * Una Fitzgerald Jr., MD - 11/27/2014 5:01 PM CDT 11/27/2014 History Chief Complaint Patient presents with Headache HEADACHE DX WITH MASS IN MAY OPTHOMOLOGIST LAKISHA JUST GIVES ME STEROIDS HPI Opal Lebalnc is a 24-year-old female who presents with complaints of chronic he adache, and chronic blurred vision on the right. The patient states that since May of this year, she's had persistent right-sided blurred vision as well as right-sided headaches. The patient has seen multiple specialists including oph thalmology and neurology at [facility] regarding an MRI scan that she had had in May. The MRI scanner revealed the presence of inflammation of her la crimal landed on the right, and a differential diagnosis that is printed on her official radiology read record and that this was either secondary to infectious process or possible a pseudotumor. The patient believes that she has a malignant growth that is causing her symptoms. She states that initially she was treated with prednisone taper for her symptoms, and that this actually resolved the swel ling that she was having of her eyelid. Patient has persistent blurred vision in the right eye, as well as persistent intermittent severe headaches on the right. She presents the emergency department today for second opinion and is also req uesting an MRI of the orbits. Past Medical History Diagnosis Date Brain tumor Attention deficit Past Surgical History Procedure Laterality Date section Tubal ligation Laparoscopic robotic assisted gastric sleeve 2011 No family history on file. History Substance Use Topics Smoking status: Current Every Day Smoker Smokeless tobacco: Not on file Alcohol Use: Yes Comment: 6X PER YEAR Review of Systems Constitutional: Negative for fever and chills. HENT: Negative for congestion and rhinorrhea. Eyes: Positive for photophobia and visual disturbance. Respiratory: Negative for cough and shortness of breath. Cardiovascular: Negative for chest pain. Gastrointestinal: Negative for nausea, vomiting and abdominal pain. Genitourinary: Negative for dysuria. Musculoskeletal: Negative for back pain and neck pain. Skin: Negative for rash. Neurological: Positive for headaches. All other systems reviewed and are negative. Physical Exam BP 123/67 mmHg | Pulse 99 | Temp(Src) 36.6 C (97.9 F) | Resp 16 | Wt 77.111 kg (170 lb) | SpO2 100% | LMP 11/05/2014 Physical Exam Constitutional: She is oriented to person, place, and time. She appears well-dev eloped and well-nourished. HENT: Head: Normocephalic and atraumatic. Right Ear: External ear normal. Left Ear: External ear normal. Mouth/Throat: Oropharynx is clear and moist. Eyes: Conjunctivae and EOM are normal. Pupils are equal, round, and reactive to light. Right eye exhibits no chemosis and no discharge. Right conjunctiva is not injected. Right conjunctiva has no hemorrhage. Neck: Normal range of motion. Neck supple. Cardiovascular: Normal rate, regular rhythm, normal heart sounds and intact dist al pulses. Exam reveals no gallop and no friction rub. No murmur heard. Pulmonary/Chest: Effort normal and breath sounds normal. Abdominal: Soft. Bowel sounds are normal. There is no tenderness. Musculoskeletal: Normal range of motion. Neurological: She is alert and oriented to person, place, and time. Skin: Skin is warm and dry. Vitals reviewed. Visual acuities: Right-20/20, Left-20/13, Both- Results for orders placed or performed during the hospital encounter of 11/27/14 (from the past 24 hour(s)) Comprehensive Metabolic Panel Result Value Ref Range Sodium 135 133 - 147 MEQ/L Potassium 3.9 3.5 - 5.3 MEQ/L Chloride 103 96 - 112 MEQ/L Carbon Dioxide 26 20 - 32 MEQ/L Anion Gap 6 5 - 17 Calcium 9.3 8.4 - 10.5 mg/dL Glucose 88 70 - 100 mg/dL Protein Total Serum 7.2 6.0 - 8.2 g/dL Albumin 4.1 3.5 - 5.0 g/dL Alkaline Phosphatase 44 42 - 140 IU/L Alanine Aminotransferase 26 13 - 69 IU/L Aspartate Aminotransferase 18 15 - 46 IU/L Bilirubin Total 0.3 0.2 - 1.3 mg/dL Blood Urea Nitrogen 13 7 - 26 mg/dL Creatinine 0.7 0.4 - 1.1 mg/dL GFR Female AA 123 60 - 200 GFR Female Non-AA 103 60 - 200 CBC and Diff (manual diff if necessary) Result Value Ref Range WBC 9.30 4.00 - 11.00 TH/uL RBC 4.06 4.00 - 5.00 MIL/uL Hemoglobin 11.5 (L) 12.0 - 15.0 g/dL Hematocrit 33 (L) 36 - 45 % MCV 81 80 - 99 fL MCH 28 27 - 34 pg MCHC 35 32 - 36 % RDW 15.2 (H) 9.0 - 14.5 % Platelet Count 215 140 - 400 TH/uL MPV 10.0 9.4 - 12.3 fL Nucleated RBCs 0 0 - 0 /100 %Segmented Neutrophils 51 45 - 78 % %Lymphocytes 40 15 - 47 % %Monocytes 8 0 - 12 % %Eosinophils 1 0 - 7 % %Basophils 0 0 - 2 % % Imm Grans 0 0 - 1 % # Granulocytes 4.72 1.70 - 6.80 TH/uL # Lymphocytes 3.70 (H) 1.00 - 3.30 TH/uL # Monocytes 0.73 0.20 - 0.90 TH/uL # Eosinophils 0.12 0.00 - 0.40 TH/uL # Basophils 0.03 0.00 - 0.10 TH/uL CT Orbit IAC Posterior Fossa Sella w contrast (Results Pending) initial impression: No masses identified including a lack of any masses within the lacrimal glands, no other acute process present ED Course Procedures MDM the patient had normal visual acuities including 20/20 vision in her affected e ye which she states is currently extremely blurred. Labs were largely within no rmal limits, and the patient's CT of the orbits did not reveal any masses or any other acute abnormalities. Since the patient has had these symptoms now for 6 months without any significant change, I don't believe that she requires emergen t ophthalmology consultation in the emergency department. The patient will be re ferred to ophthalmology to follow-up with as an outpatient. The patient was give n a referral to Dr. Serna from neuro ophthalmology, as well as Dr. sullivan from ophthalmology if she is unable to get in with Dr. Serna. The patient and her mother both understood and agreed with plan for discharge and follow-up with carlos ro ophthalmology. ED Clinical Impression SNOMED CT(R) 1. Headache, unspecified headache type HEADACHE 2. Blurred vision, right eye BLURRING OF VISUAL IMAGE Una Fitzgerald Jr., MD, MD 11/27/142130 * Saúl Barroso - 11/27/2014 2:32 PM CDT Bed: [facility] Expected date: Expected time: Means of arrival: Comments: triage documented in this encounter Plan of Treatment Not on filedocumented as of this encounter Procedures Comments Procedure Name Priority Date/Time Associated Diagnosis LAB SUMMARY 11/30/2014 3:[address] ORBIT IAC POSTERIOR STAT 11/27/2014 FOSSA SELLA W CONTRAST 7:19 PM CDT COMPREHENSIVE METABOLIC STAT 11/27/2014 PANEL 4:58 PM CDT CBC AND DIFF (MANUAL DIFF STAT 11/27/2014 IF NECESSARY) 4:58 PM CDT documented in this encounter Results * LAB SUMMARY (11/30/2014 3:30 AM CDT) Narrative Performed At Ordered by an unspecified provider. * CT Orbit IAC Posterior Fossa Sella w contrast (11/27/2014 7:19 PM CDT) Specimen Impressions Performed At IMPRESSION: [facility] Orbits are symmetric and anatomic in appearance. No mass per CT with contrast. ATTESTATION STATEMENT: The Staff Radiologist has personally reviewed the images and dictated, reviewed, or edited the final report. READING SITE: [facility] Narrative Performed At Patient: OPAL LEBLANC Phone#: [facility] Rec#: [id number] Sex#:F # [id number] Tejal#:[id number] Location:[place] [address]Accession#: [id number] Procedure Requested:[id number] CT ORBIT IAC POSTERIOR FOSSA SELLA W CONTRAST Reason for Exam:hx of possible lacrimal gland mass, R sided eye pressure and blurred vision Exam Ordered:11/27/20141643 Exam Date/Time: Check-in Date/Time: CT ORBIT IAC POSTERIOR FOSSA SELLA W CONTRAST Nov 27, 2014 07:20:12 PM Indication: Hx of possible lacrimal gland mass, R sided eye pressure and blurred vision. Comparison: None. Technique: CT was performed of the orbits after the uneventful administration of 85 cc of Omnipaque 350. Coronal and sagittal reconstructions were performed. Findings: The orbits are symmetric in appearance. The lacrimal glands are symmetric. The globes are intact. No preseptal or orbital swelling. The visualized maxillofacial osseous structures are intact. The paranasal sinuses are clear. No nasal bone fracture. Mild rightward nasal septal deviation. The visualized airway is patent. Scattered small cervical lymph nodes are not enlarged per CT size criteria. The visualized vascular structures are patent The visualized brain parenchyma is intact. The skull base is intact. Procedure Note Interface, Rad Results In - 11/28/2014 12:54 PM CDT Patient: OPAL LEBLANC Phone#: [facility] Rec#: [id number] Sex#: F # [id number] Tejal#: [id number] Location: [place] [address] Procedure Requested: [id number] CT ORBIT IAC POSTERIOR FOSSA SELLA W CONTRAST Reason for Exam: hx of possible lacrimal gland mass, R sided eye pressure and blurred vision Exam Ordered: 11/27/2014 1643 Exam Date/Time: 11/27/20141918 Check-in Date/Time: 11/27/20141918 CT ORBIT IAC POSTERIOR FOSSA SELLA W CONTRAST Nov 27, 2014 07:20:12 PM Indication: Hx of possible lacrimal gland mass, R sided eye pressure and blurred vision. Comparison: None. Technique: CT was performed of the orbits after the uneventful administration of 85 cc of Omnipaque 350. Coronal and sagittal reconstructions were performed. Findings: The orbits are symmetric in appearance. The lacrimal glands are symmetric. The globes are intact. No preseptal or orbital swelling. The visualized maxillofacial osseous structures are intact. The paranasal sinuses are clear. No nasal bone fracture. Mild rightward nasal septal deviation. The visualized airway is patent. Scattered small cervical lymph nodes are not enlarged per CT size criteria. The visualized vascular structures are patent The visualized brain parenchyma is intact. The skull base is intact. IMPRESSION: Orbits are symmetric and anatomic in appearance. No mass per CT with contrast. ATTESTATION STATEMENT: The Staff Radiologist has personally reviewed the images and dictated, reviewed, or edited the final report. READING SITE: [facility] Organization Address City/State/Zipcode Phone Number [place] * CBC and Diff (manual diff if necessary) (11/27/2014 4:58 PM CDT) WBC 9.30 4.00 - 11.00 TH/uL [facility] RBC 4.06 4.00 - 5.00 MIL/uL [facility] Hemoglobin 11.5 (L) 12.0 - 15.0 g/dL [facility] Hematocrit 33 (L) 36 - 45 % [facility] MCV 81 80 - 99 fL [facility] MCH 28 27 - 34 pg [facility] MCHC 35 32 - 36 % [facility] RDW 15.2 (H) 9.0 - 14.5 % [facility] Platelet Count 215 140 - 400 TH/uL [facility] MPV 10.0 9.4 - 12.3 fL [facility] Nucleated RBCs 0 0 - 0 /100 [facility] % Neutrophils 51 45 - 78 % [facility] %Lymphocytes 40 15 - 47 % [facility] %Monocytes 8 0 - 12 % [facility] %Eosinophils 1 0 - 7 % [facility] %Basophils 0 0 - 2 % [facility] % Imm Grans 0 0 - 1 % [facility] # Granulocytes 4.72 1.70 - 6.80 TH/uL [facility] # Lymphocytes 3.70 (H) 1.00 - 3.30 TH/uL [facility] # Monocytes 0.73 0.20 - 0.90 TH/uL [facility] # Eosinophils 0.12 0.00 - 0.40 TH/uL [facility] # Basophils 0.03 0.00 - 0.10 TH/uL [facility] Specimen Blood Performing Organization Address City/State/Zipcode Phone Number [facility] [address] [place] [address] LABORATORIES * Comprehensive Metabolic Panel (11/27/2014 4:58 PM CDT) Sodium 135 133 - 147 MEQ/L [facility] Potassium 3.9 3.5 - 5.3 MEQ/L [facility] Chloride 103 96 - 112 MEQ/L [facility] Carbon Dioxide 26 20 - 32 MEQ/L [facility] Anion Gap 6 5 - 17 [facility] Calcium 9.3 8.4 - 10.5 mg/dL [facility] Glucose 88 70 - 100 mg/dL [facility] Protein Total 7.2 6.0 - 8.2 g/dL [facility] Serum [facility] Albumin 4.1 3.5 - 5.0 g/dL [facility] Alkaline 44 42 - 140 IU/L [facility] Phosphatase [facility] Alanine 26 13 - 69 IU/L [facility] Aminotransferas [facility] e LABORATORIES Aspartate 18 15 - 46 IU/L [facility] Aminotransferas [facility] e LABORATORIES Bilirubin Total 0.3 0.2 - 1.3 mg/dL [facility] Blood Urea 13 7 - 26 mg/dL [facility] LABORATORIES Creatinine 0.7 0.4 - 1.1 mg/dL [facility] LABORATORIES eGFR Female AA 123 60 - 200 [facility] Comment: REGIONAL Chronic Kidney Disease less LABORATORIES than 60 mL/min/1.73 sq.m Kidney failure less than 15 mL/min/1.73 sq.m eGFR Female 103 60 - 200 [facility] Non-AA Comment: REGIONAL Chronic Kidney Disease less LABORATORIES than 60 mL/min/1.73 sq.m Kidney failure less than 15 mL/min/1.73 sq.m Specimen Blood Performing Organization Address City/State/Zipcode Phone Number [facility] [address] [place] [address] LABORATORIES documented in this encounter Visit Diagnoses Diagnosis Headache, unspecified headache type - Primary Blurred vision, right eye Other specified visual disturbances documented in this encounter Administered Medications Action Date Dose Rate Site Medication Order MAR Action 11/27/2014 5:03 PM CDT 25 mg diphenhydrAMINE (BENADRYL) injection 25 Given mg 25 mg, Intravenous, Once, Ingrid 11/27/14 at 1645, For 1 dose 11/27/2014 5:06 PM CDT 50 mcg fentaNYL (SUBLIMAZE) 50 mcg/mL injection Given 50 mcg 50 mcg, Intravenous, Once, Ingird 11/27/14 at 1645, For 1 dose 11/27/2014 7:19 PM CDT 85 mL iohexol (OMNIPAQUE) 350 mg iodine/mL Given injection 85 mL 85 mL, Intravenous, Once in imaging, contrast, Starting Ingrid 11/27/14 at 1919, For 1 dose 11/27/2014 5:04 PM CDT 10 mg metoclopramide (REGLAN) injection 10 mg Given 10 mg, Intravenous, Once, Ingrid 11/27/14 at 1645, For 1 dose 11/27/2014 5:03 PM CDT 1,000 mL 2000 mL/hr sodium chloride 0.9% (NS) IV Bolus New Bag 1,000 mL, Intravenous, Administer over 30 Minutes, Once, Ingrid 11/27/14 at 1645, For 1 dose documented in this encounter"
--- NOTE | 2018-12-10 21:45 | NUR ---
Pt brought to room now available for triage. Apologies for delays with numerous patients in ER. See triage notes. Pt had applied a small dsg at home and bleeding from a small < 1m lac of left index finger is controlled.
--- NOTE | 2018-12-10 22:00 | NUR ---
Dr Vernon reportes planned closure with skin adhesive.
--- NOTE | 2018-12-10 22:06 | ED Integumentary General ---
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 Timing/Duration: just prior to arrival Severity: moderate (4/10) Location: hands (left index finger) Possible Cause: other (cut by knife) Modifying Factors: improves with other (none) Associated Symptoms: denies symptoms (x/ as noted. ) Allergies and Home Medications Allergies Uncoded Allergies: SULFA (Adverse Reaction, Mild, HIVES, 07/11/17) Home Medications Cyclobenzaprine HCl 5 Mg Tablet, 5 MG PO TID PRN for PAIN-MILD TO MODERATE Prescribed by: EFRA NORTON on 07/11/172034 Naproxen Sodium 550 Mg Tablet, 550 MG PO BID PRN for PAIN-SEVERE Prescribed by: EFRA NORTON on 07/11/172034 Patient Home Medication List Home Medication List Reviewed: Yes Review of Systems Review of Systems Constitutional: see HPI : No Skin: see HPI, other (laceration left index finger) All Other Systems Reviewed Negative Unless Noted: Yes (Negative excepted noted.) Past [id number]-[id number]-Mvlahf Hx Patient Social History Type Used: Cigarettes Former Smoker, Quit: Jul 06, 2017 Recent Foreign Travel: No Contact w/Someone Who Travel: No Recent Hopitalizations: No Immunizations Up To Date PED Vaccines UTD: Yes Seasonal Allergies Seasonal Allergies: Yes Past Medical History Surgeries: Yes (GASTRIC SLEEVE) Section, Tubal Ligation Respiratory: No Cardiac: No Neurological: No TREASURER History: Tubal Ligation Genitourinary: No Gastrointestinal: No Musculoskeletal: No 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) HEENT: Yes (LACRIMAL GLAND TUMOR R EYE) Psychosocial: Yes (OCD) ADD/ADHD, Anxiety, Bipolar Integumentary: No Blood Disorders: No Physical Exam Vital Signs Vital Signs - First Documented 12/10/18 21:45 Temp 98.8 Pulse 72 Resp 18 B/P (MAP) 125/76 (92) Pulse Ox 99 O2 Delivery Room Air Capillary Refill : General Appearance: WD/WN, no apparent distress, obese Cardiovascular: regular rate, rhythm Respiratory: no respiratory distress Extremities: normal range of motion Neurologic/Psychiatric: no motor/sensory deficits, alert, oriented x 3, other ( anxious) Skin: warm/dry Skin Problem Location: upper extremities (left index finger) Skin Problem Character: linear (1 cm subq laceration erwin surface of left index finger), tenderness Procedures/Interventions Wound Location: Upper Extremities (left index fnger) Other Wound Location left index finger Wound Length (cm): 1 Wound's Depth, Shape: linear, sub Q Wound Explored: clean Betadine Prep?: No Other Closure Supply: Wound Adhesive Progress/Results/Core Measures Results/Orders Vital Signs/I&O 12/10/18 21:45 Temp 98.8 Pulse 72 Resp 18 B/P (MAP) 125/76 (92) Pulse Ox 99 O2 Delivery Room Air Progress Progress Note : Progress Note Refused tetanus shot. States she doesn't believe in vaccines. Departure Impression Primary Impression: Laceration of finger Disposition: 01 HOME, SELF-CARE Condition: Improved Departure-Patient Inst. Decision time for Depature: 22:07 Referrals: [facility] Patient Instructions: Laceration Repair With Glue (DC) JIM WEST DO Dec 10, 2018 22:06
[2018-12-10 22:10] VITALS: BP 125/76
--- NOTE | 2018-12-10 22:10 | NUR ---
Pt discharged to home after review of care of laceration with skin glue closure. Pt verbalizes understanding of instructions reviewed.
== END 2018-12-10 22:10 | disposition home or self-care (01) ==
LOC: EDUNIT# 19:59 → ER FS 20:00
DX: S61.211A Laceration without foreign body of left index finger without damage to nail, initial encounter (principal); F31.9 Bipolar disorder, unspecified; F41.9 Anxiety disorder, unspecified; F90.9 Attention-deficit hyperactivity disorder, unspecified type; Z86.018 Personal history of other benign neoplasm; Z88.2 Allergy status to sulfonamides; Z87.891 Personal history of nicotine dependence; Z98.84 Bariatric surgery status; Z98.51 Tubal ligation status; W26.0XXA Contact with knife, initial encounter
CPT/HCPCS: 12001

== ENCOUNTER 2019-06-20 05:41 | Outpatient (CLI) | payer MEDICAID ==
[~2019-06-20] VITALS: Ht 154 cm; Wt 88.6 kg
[~2019-06-20 05:41] MED LIST changes: -AMPH10CA; +DEXT10CA18; -FLUO20CA25; +FLUO20CA45
[2019-06-28] MEDS ORDERED: ACET-93 PO (15:10)
[2019-06-28] MEDS ORDERED: OXC5T PO (15:10)
[2019-06-28] MEDS ORDERED: IBUP-1773 PO (15:10)
== END 2019-06-20 13:41 | disposition home or self-care (01) ==
LOC: PREOP 05:41
PROVIDERS: ATTEND Obstetrics & Gynecology
DX: Z01.818 Encounter for other preprocedural examination (principal)

== ENCOUNTER → 2019-09-10 | Outpatient (CLI) | payer MEDICAID ==
[~2019-09-10] MED LIST changes: +ACET-93 PO; -FLUO20CA45; +FLUO20CA46; +IBUP-1773 PO; +OXC5T PO
--- NOTE | 2019-09-10 11:58 | Diagnostic Imaging Report ---
EXAMINATION: OB ultrasound INDICATION: Right-sided pelvic pain and early There are no prior studies available are comparison There is a small saclike structure within the endometrium of the uterus in the lower uterine segment. The sac measurements would correspond to 6 week +/- 1 week. However there is no sign of an embryonic pole. Consequently this could represent a blighted ovum. The possibility that this is secondary to an early live should still be considered. It would be less likely this is related to an ectopic pseudo-sac as there is no pelvic mass or free fluid collection evident. Correlation with patient's beta hCG levels would be recommended. Both ovaries were identified and were generally unremarkable. There is no evidence for torsion. IMPRESSION: 1. There is a saclike structure within the uterus but there is no evidence for an embryonic pole. Whether this finding is secondary to a blighted ovum or early live is not certain. Correlation with patient's beta hCG levels would be recommended. 2. There is no pelvic mass or free fluid collection to suggest an ectopic . Dictated by: Dictated on workstation # [id number]
== END ==
LOC: RAD 10:14
PROVIDERS: ATTEND Obstetrics & Gynecology
DX: Z34.90 Encounter for supervision of normal pregnancy, unspecified, unspecified trimester (principal)
CPT/HCPCS: 76801; 76817

== ENCOUNTER 2019-09-21 03:54 | Emergency (ER) | payer MEDICAID ==
[~2019-09-21] VITALS: Ht 154 cm; Wt 104.0 kg
--- OUTSIDE RECORDS SUMMARY | 2019-09-21 04:01 | XMS REPORT ---
Author Author [email or web address] [place] [employer] [facility] Address [address] [address] Care Team Providers Care Supervisor [employer] Name Role Phone SRIDEVI POLO Unavailable Unavailable WISEMANDEXTER Beckett Trung Unavailable LESLIE OSWALD Unavailable Unavailable Migration, Doctor Unavailable Unavailable PCP, OUTSIDE Unavailable Unavailable Migration, Doctor Unavailable Unavailable EFRA NORTON APRN Unavailable Unavailable JIM WEST DO Unavailable Unavailable PCP, NONE Unavailable Unavailable NAIN AU DO Unavailable Unavailable NO, LOCAL PHYSICIAN PCP Unavailable NILS Granger Unavailable EFRA NORTON APRN Unavailable Unavailable NILS Granger Unavailable Migration, Doctor Unavailable Unavailable Migration, Doctor Unavailable Unavailable Unavailable Unavailable Unavailable Unavailable Unavailable Unavailable Allergies The data below is from unstructured sourcesNo allergy information available. No Information No Information No Information No Information No Information No Information Medications Current Medications Medication Ingredient Drug Dose Dates Status Sig Sig Care Class(es) (Normalized) (Original) Provid er acetaminoph Acetaminoph no 06-28-19 Active no Acetaminoph e no en 500 mg en information 20 information n Active n blanquita oral tablet 1000 ORAL (1 source.) Every 8HRS as needed for Pain-Mild (1-4) 120 June 28, 2019 3:10pm benzonatate benzonatate Non-narcoti 100 mg 12-27-19 Active no Tessalon no 100 mg oral Translation c 18 - information Perles 100 name capsule (1 s: [ Antitussive 01-03-20 mg Orally source.) Tessalon 18 Three times Perles 100 a day 1 mg] capsule as needed 8h Dec, Dec, 07 days Active doxycycline Doxycycline Tetracyclin 100 mg 05-22-19 Active take 1 Doxycycline no hyclate 100 Translation e-class 14 tablet by Hyclate 100 name mg oral s: [ Drug mouth twice mg 1 tablet tablet (1 Doxycycline daily by Oral source.) Hyclate 100 route 2 mg] times per day for 10 days May, Active ibuprofen Ibuprofen Nonsteroida 06-28-19 Active no Ibuprofen no 600 mg oral l 20 information Active 600 name tablet (1 Anti-inflam ORAL Every 6 source.) matory Drug Hours as needed for Pain-Mild June 28, 2019 3:10pm metroNIDAZO metroNIDAZO Nitroimidaz 500 mg 09-10-19 Active take 1 Flagyl 500 no LE 500 mg LE ole 14 tablet by mg 1 tablet name oral tablet Translation Antimicrobi mouth twice by Oral (1 source.) s: [ Flagyl al daily route 2 500 mg] times per day for 7 days September, Active no oxyCODONE Opioid 06-28-19 Active no Oxycodone no information Agonist 20 information Hcl Active name (1 source.) 5-10 ORAL Every 4HRS as needed for Pain-Severe (8-10) June 28, 2019 3:10pm Completed/Discontinued Medications Medication Ingredient Drug Dose Dates Status Sig Sig Care Class(es) (Normalized) (Original) Provid er 24 hr Amphetamine Central 06-20-19 Complete no Dextroamphet no amphetamine aspartate / Nervous 20 d information amine/ Amphet name aspartate Amphetamine System amine 2.5 mg / Sulfate / Stimulant Discontinued amphetamine Dextroamphe NOT sulfate 2.5 tamine APPLICABLE mg / saccharate June dextroamphe / 2019 tamine Dextroamphe saccharate tamine 2.5 mg / Sulfate dextroamphe tamine sulfate 2.5 mg extended release oral capsule (2 sources.) cyclobenzap cyclobenzap Muscle 07-12-19 Complete no Cycloben zapr no rine rine Relaxant 18 - d information ine Hcl name hydrochlori 06-20-19 Discontinued de 5 mg 20 5 ORAL Three oral tablet Times A Day (2 as needed sources.) for Pain-Mild To Moderate July 11, 2017 8:35pm June 20, 2019 naproxen Naproxen Nonsteroida 07-12-19 Complete no Naproxen no sodium 550 l 18 - d information Sodium nam e mg oral Anti-inflam 06-20-19 Discontinued tablet (2 matory Drug 20 550 ORAL sources.) Twice A Day as needed for Pain-Severe July 11, 2017 8:35pm June 20, 2019 Problems Active Problems Problem Normalized Date Last Normalized Normalized Provider Talia schuster Classification Problem(s) Recorded Problem Problem Sta tus Duration Allergic Allergy status Episodic Active EFRA NORTON VC Via reactions (12 to [facility] [place] sources[facility] sulfonamides Hospital - status [place] ([address]) Anxiety Anxiety Chronic Active EFRA NORTON VC Via disorders (17 disorder, [facility] [place] sources.) unspecified Hospital - Translations: [place] [ Anxiety, (47648) Anxiety, - Anxiety F41.9] Attention-defi Attention-defi Chronic Active EFRA NORTON VC Via cit conduct cit [facility] and disruptive hyperactivity Hospital - behavior disorder, [place] disorders (9 unspecified (66842) sources.) type Other Bariatric Episodic Active JIM WEST VC Via gastrointestin surgery status , [facility] al disorders Hospital - (4 sources.) [place] (58844) Mood disorders Bipolar Chronic Active EFRA NORTON VC Via (9 sources.) disorder, 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 Alejandra unspecified Hospital - [place] (33511) Other Body mass Chronic Active NAIN AU VC Via nutritional; index (BMI) [facility] endocrine; and 37.0-37.9, Hospital - metabolic adult [place] disorders (3 (75781) sources.) Menstrual Break-through Chronic Active NILS Granger Com munity disorders (8 [facility] sources.) Translations: of [facility] [ Breakthrough [place] ([address]856) bleeding on depo provera, - Breakthrough bleeding on depo provera N92.1] Inflammatory Chronic Chronic Active DIEGO MONTAGUE Vi a diseases of salpingitis [facility] female pelvic Hospital - organs (3 [place] sources.) (72978) External cause Contact with Episodic Active JIM BRETT [facility] Via codes: knife, initial , DO [facility] [place] (4 encounter Hospital - sources.) [place] ([address]33) Ovarian cyst Corpus luteum Episodic Active NAIN AU V CH Via (3 sources.) cyst of left [facility] ovary [facility] (75149) Other Encounter for 09-11-2019 - Episodic Active DIEGO BENZ Via and supervision of [facility] delivery normal Hospital - including , [place] normal (3 unspecified, (86331) sources.) unspecified trimester 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 Chronic Active DIEGO MONTAGUE Via (3 sources.) of pelvic DO Alejandra peritoneum [facility] (24754) 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 MONTAGUE Via infertility (3 infertility of DO Alejandra sources.) tubal origin [facility] (45878) Unclassified H/O: no information Active LOCAL NO [facility] annie Via (2 sources.) sterilization [facility] - female [facility] (19312) Open wounds of Laceration Episodic Active JIM WEST V CH Via extremities without , DO Alejandra (10 sources.) foreign body Hospital - of left index [place] finger without (71563) damage to nail, initial encounter Translations: [ Laceration of finger] Skin and Local Episodic Active NILS Granger Communit y subcutaneous infection [place] [id number] [place] [address] tissue the skin and of [facility] infections (4 subcutaneous [place] (08120) sources.) tissue, unspecified Translations: [ - Skin infection L08.9] Spondylosis; Low back pain Episodic Active EFRA NORTON V CH Via intervertebral Translations: LARD BLEACHERAmanda Roberts disc [ Low back Hospital - disorders; pain, Back [place] other back pain] (61148) problems (14 sources.) Other Obesity, Chronic Active DIEGO MONTAGUE Via nutritional; unspecified DO Alejandra endocrine; and Hospital - metabolic [place] disorders (3 (41366) sources.) Other Other long Episodic Active NILS Valencia ity aftercare (8 term (current) [address] [facility] sources.) drug therapy of [facility] Translations: [place] (63281) [ - Medication management Z79.899] Screening and Personal Episodic Active DIEGO LAMB V ia history of history of LARD BLEACHER Alejandra mental health nicotine Hospital - and substance dependence [place] abuse codes (63515) (12 sources.) Cancer; other Personal Episodic Active JIM CORTEZ Via and history of , DO Alejandra unspecified other benign Hospital - primary (4 neoplasm [place] sources.) (36926) Residual Personal Episodic Active DIEGO LAMB Via codes; history of LARD BLEACHER Alejandra unclassified other Hospital - (8 sources.) complications [place] of , (46744) childbirth and the puerperium Other Personal Episodic Active DIEGO LAMB Via connective history of LARD BLEACHER Alejandra tissue disease other diseases Hospital - (5 sources.) of the [place] [facility] ([address]08) l system and connective tissue Other female Recurrent Episodic Active NAIN AU , [facility] V ia genital loss DO Alejandra disorders (3 Hospital - sources.) [place] ([address]55) Contraceptive Tubal ligation Episodic Active EFRA NORTON , [facility] Via and status AZEEM Roberts procreative Translations: Hospital - management (14 [ - Encounter [place] sources.) for (77233) Depo-Provera contraception Z30.42] Past or Other Problems Problem Normalized Date Last Normalized Normalized Provider Fa cility Classification Problem(s) Recorded Problem Problem Sta tus Duration Other lower Snoring Episodic Completed HALLIE FARFAN Not Amber zavala respiratory MD (87081) disease (1 source.) Procedures Procedure Normalized Procedure Procedure Result Performer Facility Date 09-09-2013 Antibody hiv-1 no information no name [facility] (95456) 09-09-2013 Collection venous no information no name [facility] blood venipuncture [facility] (35411) 09-09-2013 Cul bact xcpt urine no information no name [facility] blood/stool aerobic [facility] (48239) 09-09-2013 Iadna chlamydia no information no name [facility] trachomatis amplified [facility] (50210) 09-09-2013 Iadna trichomonas no information no name [facility] vaginalis direct probe [facility] (78508) 09-09-2013 Syphilis test no information no name [facility] non-treponemal [facility] antibody qual [place] (84975) Immunizations The data below is from unstructured sources Immunization Event Date Not Given Reason Dose Number Rn Clinician Lot Number Vaccine Information Statement (VIS) Deta il No Known Immunizations Results Test Name Value Interpretation Reference Range Date Time Fa cility (Normalized) (Normalized) (Medline Reference) not yet categorized on 2019-02-27 COMMENT no information (no code) [facility] (34197) laboratory on 2019-02-27 Amphetamines Ql Negative (N) [facility] (86757) Barbiturates Ql Negative (N) [facility] (U[facility] (52302) Benzodiazepines Negative (N) [facility] th Ql (U) [facility] (02369) Benzoylecgonine Negative (N) [facility] Ql (U) [facility] (32787) Creatinine (U) 212.2 mg/dL (N) [facility] [Mass/Vol] [facility] (52123) Drug screen CONSISTENT (N) [facility] comment (U) [facility] [Interp] [facility] (24085) Drug screen INCONSISTENT (A) [facility] comment (U) [facility] [Interp] [facility] (78554) Methadone Ql (U) Negative (N) [facility] (12276) Opiates Ql (U) Negative (N) [facility] (33665) Oxidants Ql (U) Negative (N) [facility] (96269) Oxycodone Ql (U) Negative (N) [facility] (40547) pH (U) 7.2 [pH] (N) 4.6 - 8 [pH] [facility] (14829) Phencyclidine Ql Negative (N) [facility] lt (U) [facility] (67167) Tetrahydrocannab 172 (H) [facility] inol (U) [facility] [Mass/Vol] [facility] (88070) Tetrahydrocannab Positive (A) [facility] inol Ql (U) [facility] (17305) Vital Signs Vital Sign Value Interpretation Reference Date Time Care [facility] ider Facility (Normalized) (Normalized) Range BMI (Body Mass 43.12 kg/m2 (no code) 15 - 25 kg/m2 12-26-2017 Kan JIMENEZAGWU Community Index) 11:20-0400 03645 [facility] (96956) Body height 152.4 cm (no code) cm 09-09-2013 NILS Patel Community 18:53-0400 31835 [facility] (19438) Body height 152.4 cm (no code) cm 05-16-2013 Doctor Com munity 10:160500 [facility] (68168) Body 96.9 [degF] (no code) 97.8 - 99.0 12-26-2017 [facility] Temperature [degF] 11:200400 83878 [facility] (44453) Body 98.1 [degF] (no code) 97.8 - 99.0 09-09-2013 NILSCÉSAR STRINGER [facility] temperature [degF] 18:53-[address] [place] [address] (20387) Body 98.6 [degF] (no code) 97.8 - 99.0 05-16-2013 Doctor [facility] temperature [degF] 10:160500 [facility] (95066) Body weight 82.19 kg (no code) kg 09-09-2013 NILS Hernandez [facility] 18:53-[address] [place] [address] (80131) Body weight 79.33 kg (no code) kg 05-16-2013 Doctor Com munity 10:160500 [facility] (01139) Height 152.4 cm (no code) cm 12-26-2017 [facility] 11:20-0400 [address] [facility] (21550) Weight 100.15 kg (no code) kg 12-26-2017 [facility] 11:200400 [address] [place] [address] (25770) Interventions No Information Plan of Treatment Normalized Care Care Detail Care Activity Date Care Provider F acility Activity MRSA isol Org no information no information LOCAL NO [facility] Via specific cx Ql ([facility] spec) (70443) Patient Education no information no information LOCAL NO As cension [facility] (87633) Patient referral no information no information LOCAL NO Asc ension [facility] (36152) Goals Patient Goal Desired Goal no information no information Social History Normalized Code Original Code Date Value Tobacco smoking status Tobacco smoking status 06-20-2019 - Ex- smoker (finding) AZIS NHIS no information no information 06-20-2019 Rarely Uses no information no information 06-20-2019 No no information no information 06-20-2019 Former Smoker no information no information 06-20-2019 Cigarettes no information no information 12-11-2018 THC Sex Assigned At Sex Assigned At no information F emale no information no information 06-28-2019 Denies Use Functional Status Status Assessment Result Care Provider Facility Functional status [place] Opioid-induced LOCAL NO Ascen annie [facility] Sedation Scale (POSS) Hospital (61290) Awake and alert Mental Status Status Assessment Result Care Provider Facility Cognitive function [place] Opioid-induced LOCAL NO Asce nsion Via [facility] Sedation Scale (POSS) Hospital (15451) Awake and alert Encounters Encounter Normalized Encounter Encounter Diagnosis Care Provi mya Organization Date Type 09-21-2018 (imm/inj) Encounter for [facility] (no phone) [facility] - Immunization/injection surveillance of (no p leonardo) 09-21-2018 injectable - contraceptive 09-21-2018 06-28-2019 Admission to day no information (no phone) [facility] surgery [facility] (no phone) 06-28-2019 11-29-[facility] Morbid (severe) [facility] (no phone) [facility] obesity due to excess (no phone) calories 02-27-2019 [facility] Local infection of the JORDEN DANNY LSTADT (no [facility] (no skin and subcutaneous phone) phone) tissue, unspecified 12-10-2018 Emergency department no information no name no organization name - patient visit 12-10-2018 12-10-2018 Emergency department no information JIM Patel DO [facility] - patient visit (no phone) [facility] 12-10-2018 (no phone) 07-11-2017 Emergency department no information no name no organization name - patient visit 07-11-2017 07-11-2017 Emergency department no information EFRA ARNOLD (no [facility] - patient visit phone) [facility] 07-11-2017 (no phone) 07-11-2017 Patient encounter no information no name no or ganization name 09-10-2019 Patient encounter no information NAIN AU DO ( no [facility] procedure phone) [facility] (no phone) 06-28-2019 Patient encounter no information NAIN AU DO ( no [facility] - procedure phone) [facility] 06-28-2019 (no phone) 06-20-2019 Patient encounter no information (no phone) Wilbert valencia [facility] - procedure Hospital (no phone) 06-20-2019 06-20-2019 Patient encounter no information NAIN AU DO ( no [facility] - procedure phone) [facility] 06-20-2019 (no phone) 02-27-2019 Patient encounter no information no name no or ganization name procedure 12-10-2018 Patient encounter no information no name no or ganization name procedure 11-29-2018 Patient encounter no information no name no or ganization name procedure 09-21-2018 Patient encounter no information no name no or ganization name procedure 09-21-2018 Patient encounter no information no name no or ganization name procedure 08-23-2018 Patient encounter no information no name no or ganization name procedure 08-16-2018 Patient encounter no information no name no or ganization name procedure 03-04-2019 Telephone encounter Other intermediate JORDEN MCNAIR T (no [facility] (no (current) drug therapy phone) phone) 12-24-2018 Telephone encounter no information [facility] (no phone) [facility] (no phone) 11-14-2018 Telephone encounter no information JORDEN DAWSON (no [facility] (no phone) phone) 10-15-2018 Telephone encounter no information [facility] (no phone) [facility] - (no phone) 10-15-2018 - 10-15-2018 06-27-2019 no information Encounter for other no name no organization name preprocedural examination Medical Equipment The data below is from unstructured sourcesNo Medical Equipment Information availableNo Medical Equipment Information availableNo Medical Equipment Information available Payers Normalized Payer Value Unknown no information ([id number]) Evaluation note Note Type Note Facility Evaluation No Assessments Information Available A scension note [facility] (85516) History general Narrative - Reported Note Type Note Facility History general Narrative - Reported Type Medical Migraines History Medical Ulcers History Medical Anemia History Medical raynauds syndrome History Surgical 01/03/16 History Surgical Gastric Sleeve 12/23/11 History Surgical Internal Bleeding 10/25/13 History Hospitaliz Previous surgeries ation History [facility] (38095) Summary Purpose eClinicalWorks Submission Discharge Instructions No hospital discharge instructions. Additional Instructions Patient Instructions Physician Instructions New, Converted or Re-Newed RX: RX on Chart Additional Follow Up: Yes (1-2 weeks) Activity: Activity as Tolerated Driving Instructions: No Driving for 1 Week NO SMOKING: NO SMOKING Nothing Inside Vagina: No Douching, No [place] (for 1 week), No Tampons Discharge Diet: No Restrictions Symptoms to Report to : Bleeding Excessive, Pain Increased, Fever Over 101 Degrees F, Vaginal Bleeding Increase, Cramps in Feet or Legs, Vaginal Discharge Foul For Any Problems or Questions: Contact Your Physician Infection Signs and Symptoms: Increased Redness, Foul Odor of Wound, Increased Drainage, Skin Itchy or Has a Rash, Increased Swelling, Temperature Above 101 F Operative Area Clean and Dry: You May Remove Bandage (in 3 days or if soiled/wet) Stitches/[place]/Dermabond: Dermabond Bathing Instructions: Shower Advance Directives Advance Directive Response Recorded Date/Time Advance Directives No 2019 1:31pm Health Care Power of Scenic Arts Supervisor No June 20, 2019 1:31pm Organ Donor No June 20, 2019 1:31pm Resuscitation Status Full Code June 20, 2019 1:31pm Advance Directive Response Recorded Date/Time Advance Directives No 2019 10:30am Health Care Power of Scenic Arts Supervisor No June 28, 2019 10:30am Organ Donor Yes June 28, 2019 10:30am Resuscitation Status Full Code June 28, 2019 10:30am Additional Source Comments This clinical document has been generated using [employer] software that has been certified by the Office of the National Coordinator for Health Information Technology (ONC 15.99.04.3023.Diam.31.00.0.811716) and the National Committee for Concrete Boom Operator (NCQA, as an eMeasure certified technology). FOR RECORDS PERTAINING TO PATIENTS WHO ARE OR HAVE BEEN ENROLLED IN A CHEMICAL D EPENDENCY/SUBSTANCE ABUSE PROGRAM, SOME INFORMATION MAY BE OMITTED. This clinica l summary was aggregated from multiple sources. Caution should be exercised in using it in the provision of clinical care. This summary normalizes information from multiple sources, and as a consequence, information in this document may ma terially change the coding, format and clinical context of patient data. In mily tion, data may be omitted in some cases. CLINICAL DECISIONS SHOULD BE BASED ON T HE PRIMARY CLINICAL RECORDS. [employer] provides no warranty or guara ntee of the accuracy or completeness of information in this document.The followi ng information is based on time limited clinical information UNRECOGNIZED CONTENT PROVIDED BELOW FOR UNRECOGNIZED SECTION REASON FOR VISIT congestion and cough x2 days [id number] UNRECOGNIZED CONTENT PROVIDED BELOW FOR UNRECOGNIZED SECTION MEDICAL (GENERAL) HISTORY Type Description Date Medical History Migraines Medical History Ulcers Medical History Anemia Surgical History 01/03/16 Surgical History Gastric Sleeve 12/23/11 Surgical History Internal Bleeding 10/25/13 Hospitalization History Previous surgeries Type Description Date Medical History Migraines Medical History Ulcers Medical History Anemia Medical History raynauds syndrome Surgical History 01/03/16 Surgical History Gastric Sleeve 12/23/11 Surgical History Internal Bleeding 10/25/13 Hospitalization History Previous surgeries
--- OUTSIDE RECORDS SUMMARY | 2019-09-21 04:02 | XMS REPORT | Clinical Summary ---
Author Author [facility] Organization [facility] Address Unknown Phone Unavailable Care Team Providers Care Reading Recovery Teacher Name Role Phone Yuli Monge MD Unavailable Delta Rabago MD Unavailable Source Comments Some departments are not documenting in the electronic medical record. If you d o not see the information that you expected, contact Release of Information in 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 Discussed [...] Cigarettes 0 Smokeless Tobacco: Former Chew Quit: 2012 User Comments: 5 cigs a week. Drinks/Week oz/Week Comments Alcohol Use 2 Standard drinks or equivalent 1.7 Yes Sex Assigned at Date Recorded Not on file Industry Job Start Date Occupation Not on file Not on file Not on file Travel End Travel History Travel Start No recent travel history available. Last Filed Vital Signs Reading Time Taken Comments Vital Sign 128/81 06/24/2014 2:49 PM REWINDER Blood Pressure 85 06/24/2014 2:49 PM REWINDER Pulse - - Temperature - - Respiratory Rate - - Oxygen Saturation - - Inhaled Oxygen Concentration 85.7 kg (189 lb) 06/24/2014 2:49 PM REWINDER Weight 154.9 cm (5' 1") 06/24/2014 2:49 PM REWINDER Height 35.71 06/24/2014 2:49 PM REWINDER Body Mass Index Plan of Treatment Health Maintenance Due Date Last Done Comments HIV SCREENING 2005 DTAP/TDAP VACCINES (1 - 2008 Tdap) HEPATITIS C SCREENING 2008 PHYSICAL (COMPREHENSIVE) 2008 EXAM CERVICAL CANCER SCREENING 2011 INFLUENZA VACCINE 02/06/2020 Results Not on filefrom Last 3 Months 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
--- OUTSIDE RECORDS SUMMARY | 2019-09-21 04:02 | XMS REPORT | Encounter Summary ---
Author Author [facility] [place] Organization [facility] Ti Erickson, Erica, [facility] Address Unknown Phone Unavailable Care Team Providers Care Photonics Technician Name Role Phone Mayra Bermudez APRN PCP Unavailable Encounter Details Care Team Description Date Type Department Dyllan Crowley MD [address] [place] [address] 09/21/2017 [facility] in Encounter Outpatient Lab [facility] 100 [facility] [place] [address] Social History Date Tobacco Use Types Packs/Day Years Used Never Assessed Sex Assigned at Date Recorded Not on file Industry Job Start Date Occupation Not on file Not on file Not on file Travel End Travel History Travel Start No recent travel history available. documented as of this encounter Medications at Time of Discharge Start Date End Date Medication Sig Dispensed Refills 08/24/2017 amphetamine-dextroampheta 10 mg. 0 mine (ADDERALL XR) 10 mg Extended Release 24 hour capsule 04/13/2017 cetirizine (ZyrTEC) 10 mg 10 mg. 0 tablet 06/14/2017 clonazePAM (KlonoPIN) 1 0 mg tablet 09/06/2017 fexofenadine (FROILAN) 180 mg. 0 180 mg tablet 03/18/2017 FLUoxetine (PROzac) 20 mg 20 mg. 0 capsule documented as of this encounter Plan of Treatment Not on filedocumented as of this encounter Procedures Comments Procedure Name Priority Date/Time Associated Diag nosis HEPATITIS B SURFACE AB, Routine 09/21/2017 High r isk medication use QUANT 10:59 AM CDT QUANTIFERON TB GOLD Routine 09/21/2017 High risk medication use 10:59 AM CDT COMPLEMENT C3/C4 PANEL Routine 09/21/2017 Inflamm atory pseudotumor 10:59 AM CDT of right orbit MICROALBUMIN/CREATININE Routine 09/21/2017 Hematu dakotah, unspecified RATIO, RANDOM UR 10:59 AM CDT type Proteinuria, unspecified type HEPATITIS B SURFACE Routine 09/21/2017 High risk medication use ANTIGEN 10:59 AM CDT SJOGREN'S ANTIBODIES Routine 09/21/2017 Inflammat ory pseudotumor 10:59 AM CDT of right orbit IGG SUBCLASSES Routine 09/21/2017 Inflammatory ps eudotumor 10:59 AM CDT of right orbit HEPATITIS C ANTIBODY Routine 09/21/2017 High risk medication use 10:59 AM CDT HEPATITIS B CORE IGM Routine 09/21/2017 High risk medication use 10:59 AM CDT CYCLIC CITRULLINATED Routine 09/21/2017 Inflammat ory pseudotumor PEPTIDE AB IGG 10:59 AM CDT of right orbit ANTINEUTROPHIL Routine 09/21/2017 Inflammatory ps eudotumor CYTOPLASMIC ANTIBODY WITH 10:59 AM CDT of right or bit REFLEX CBC WITH DIFFERENTIAL Routine 09/21/2017 Inflamma tory pseudotumor 10:59 AM CDT of right orbit PROTEIN , RANDOM URINE Routine 09/21/2017 Hematur ia, unspecified 10:59 AM CDT type Proteinuria, unspecified type URINALYSIS W/REFLEX Routine 09/21/2017 Hematuria, unspecified MICROSCOPIC 10:59 AM CDT type Proteinuria, unspecified type SEDIMENTATION RATE Routine 09/21/2017 Inflammator y pseudotumor 10:59 AM CDT of right orbit RHEUMATOID FACTOR Routine 09/21/2017 Inflammatory pseudotumor 10:59 AM CDT of right orbit ANGIOTENSIN CONVERTING Routine 09/21/2017 Inflamm atory pseudotumor ENZYME 10:59 AM CDT of right orbit C-REACTIVE PROTEIN Routine 09/21/2017 Inflammator y pseudotumor 10:59 AM CDT of right orbit COMPREHENSIVE METABOLIC Routine 09/21/2017 Inflam matory pseudotumor PANEL 10:59 AM CDT of right orbit documented in this encounter Results * CYCLIC CITRULLINATED PEPTIDE AB IGG (09/21/2017 10:59 AM CDT) Pathologist [facility] CYCLIC <15.6 <20.0 (Negative) U [facility] CITRULLINATED Comment: LABORATORIES - PEPTIDE AB IGG Test Performed by: [place] [address] Specimen Blood Performing Organization Address [facility] Ph one Number [facility] [phone] - [facility] [place] * RHEUMATOID FACTOR (09/21/2017 10:59 AM CDT) Pathologist [facility] RHEUMATOID <10 <=14 IU/mL [facility] FACTOR LABORATORY SERVICES - [place] Specimen Blood Performing Organization Address [facility] Ph one Number [facility] LABORATORY SERVICES CLIA # [id number] [place] [address] - [place] 100 [facility] LABORATORY SERVICES CLIA # [id number] [place] [address] [facility] 100 [facility] * IGG SUBCLASSES (09/21/2017 10:59 AM CDT) IGG SUBCLASSES 1000 767 - 1590 mg/dL [facility] IGG SUBCLASS 1 617 341 - 894 mg/dL [facility] IGG SUBCLASS 2 296 171 - 632 mg/dL [facility] IGG SUBCLASS 3 60.0 18.4 - 106.0 mg/dL [facility] IGG SUBCLASS 4 53.8 2.4 - 121.0 mg/dL [facility] Comment: LABORATORIES - Test Performed by: HOR[place] [facility] [address] [place] [address] Specimen Blood Performing Organization Address [facility] one Number [facility] [employer] [phone] - [facility] [place] * ANGIOTENSIN CONVERTING ENZYME (09/21/2017 10:59 AM CDT) Pathologist [facility] ANGIOTENSIN 22 8 - 53 U/L [facility] CONVERTING Comment: LABORATORIES - ENZYME Test Performed by: HORACE [facility] [address] [place] [address] Specimen Blood Performing Organization Address [facility] one Number [facility] [employer] [phone] - [place] [facility] [place] * C-REACTIVE PROTEIN (09/21/2017 10:59 AM CDT) [facility] CRP 2.5 <=5.0 mg/L [facility] LABORATORY SERVICES - [place] Specimen Blood Performing Organization Address [facility] one Number [facility] LABORATORY SERVICES CLIA # [id number] [place] [address] - [place] 100 [facility] LABORATORY SERVICES CLIA # [id number] [place] [address] - [place] 100 [facility] * SEDIMENTATION RATE (09/21/2017 10:59 AM CDT) [facility] ESR 36 (H) 0 - 20 mm/Hr [facility] (SEDIMENTATION LABORATORY RATE) SERVICES - [place] Specimen Blood Performing Organization Address [facility] one Number [facility] LABORATORY SERVICES CLIA # [id number] [place] [address] - [place] 100 [facility] LABORATORY SERVICES CLIA # [id number] [place] [address] - [place] 100 [facility] * ANTINEUTROPHIL CYTOPLASMIC ANTIBODY (09/21/2017 10:59 AM CDT) [facility] MYELOPEROXIDASE <0.2 <0.4 (Negative) U [facility] LAB[facility]ATORIES - [place] PROTEINASE 3 AB <0.2 <0.4 (Negative) U [facility] Comment: LABORATORIES - Test Performed by: HORACE [facility] [address] [place] [address] Specimen Blood Performing Organization Address [facility] Ph one Number [facility] LABORATORIES [phone] - [place] [facility] LABORATORIES - [place] * URINALYSIS WITH REFLEX MICROSCOPIC (09/21/2017 10:59 AM CDT) COLOR UA Yellow Pale to dark yellow [facility] LABORATORY SERVICES - [place] CLARITY UA Slightly Cloudy (A) Clear [facility] [place] SPECIFIC 1.013 1.003 - 1.035 [facility] GRAVITY UA LABORATORY SERVICES - [place] PH UA 6.0 5.0 - 8.0 [facility] [place] LEUKOCYTE Negative Negative [facility] ESTERASE [facility] LAB[facility]ATORY SERVICES - [place] NITRITE UA Negative Negative [facility] - [place] PROTEIN UA Negative Negative [facility] - [place] GLUCOSE UA Negative Negative [facility] - [place] KETONES UA Negative Negative [facility] - [place] UROBILINOGEN UA <2.0 <2.0 mg/dL [facility] - [place] BILIRUBIN UA Negative Negative [facility] - [place] BLOOD UA Trace (A) Negative [facility] - [place] WBC UA 0-2 0 - 2 /hpf [facility] [place] RBC UA 0-2 0 - 2 /hpf [facility] - [place] BACTERIA UA 2+ (A) Negative /hpf [facility] - [place] EPITHELIAL 6-10 (A) 0 - 5 /hpf [facility] CELLS, URINE LABORATORY SERVICES - [place] HYALINE CAST 11-25 (A) None Seen, 0-2 /lpf [facility] - [place] Specimen Urine - Urine specimen obtained by clean catch procedure (specimen) Performing Organization Address City/State/[facility] Ph one Number [facility] LABORATORY SERVICES CLIA # [id number] [place] [address] - [place] [address] [facility] LABORATORY SERVICES CLIA # [id number] [place] [address] - [place] [address] * MICROALBUMIN/CREATININE RATIO, RANDOM UR (09/21/2017 10:59 AM CDT) MICROALBUMIN, <1.2 0.0 - 1.9 mg/dL [facility] URINE LABORATORY SERVICES - [place] CREATININE, 151.4 29.0 - 226.0 mg/dL [facility] URINE Comment: LABORATORY Reference Range varies with SERVICES - fluid intake and diet. [place] MICROALBUMIN/CR <7.9 <25.0 mg/g [facility] EAT RATIO, UR LABORATORY SERVICES - [place] Specimen Urine - Urine specimen obtained by clean catch procedure (specimen) Narrative Performed At [facility] Microalbumin/Creat ratio [facility] LABORATORY S YG - [place] Normal Males <17 Normal Females <25 Microalbuminuria Males 17-299 Microalbuminuria Females 25-299 Overt proteinuria >=300 Performing Organization Address [facility] LABORATORY SERVICES CLIA # [id number] [place] [address] - [place] [address] [facility] [address] [facility] LABORATORY SERVICES CLIA # [id number] [place], [place] [address] - [place] [address] [facility] [address] * PROTEIN/CREATININE RATIO, URINE (09/21/2017 10:59 AM CDT) PROTEIN 7 0 - 20 mg/dL [facility] - [place] CREATININE, 151.8 29.0 - 226.0 mg/dL [facility] URINE Comment: LABORATORY Reference Range varies with SERVICES - fluid intake and diet. [place] PROTEIN/CREAT 0.05 0.00 - 0.19 mg/mg [facility] RATIO, URINE Creatinine LABORATORY SERVICES - [place] Specimen Urine - Urine specimen obtained by clean catch procedure (specimen) Performing Organization Address [facility] one Number [facility] LABORATORY SERVICES CLIA # [id number] [place] [address] - [place] [address] [facility] [address] [facility] LABORATORY SERVICES CLIA # [id number] [place], [place] [address] - [place] [address] [facility] [address] * COMPREHENSIVE METABOLIC PANEL (09/21/2017 10:59 AM CDT) SODIUM 138 136 - 145 mmol/L [facility] LABORATORY SERVICES - [place] POTASSIUM 3.8 3.5 - 5.1 mmol/L [facility] [place] CHLORIDE 102 98 - 107 mmol/L [facility] [place] CO2 22 22 - 29 mmol/L [facility] [place] CALCIUM 9.0 8.6 - 10.0 mg/dL [facility] [place] BUN 7 6 - 20 mg/dL [facility] [place] CREATININE 0.81 0.51 - 0.95 mg/dL [facility] [place] GLUCOSE 58 (L) 74 - 105 mg/dL [facility] [place] TOTAL PROTEIN 7.7 6.4 - 8.3 g/dL [facility] [place] ALBUMIN 4.2 4.0 - 4.9 g/dL [facility] [place] BILIRUBIN TOTAL 0.3 <=1.2 mg/dL [facility] [place] ALKALINE 55 35 - 104 U/L [facility] PHOSPHATASE LAB[facility] SERVICES - [place] AST 15 0 - 32 U/L [facility] [place] ALT 13 0 - 33 U/L [facility] - [place] GFR >60 >=60 mL/min/1.73 sq [facility] Comment: meter LABORATORY eGFR has not been validated SERVICES - for use in the elderly (> 70 [place] years of age), women, patients with serious co-morbid conditions, or persons with extremes of body size or muscle mass and should also be interpreted with caution in patients with acute kidney failure, dialysis dependent patients, patients reporting exceptional dietary intake (e.g. vegetarian diet, high protein diets, creatine supplementation), and patients with severe liver disease. Based on National Kidney Disease Education Program If patient is , please refer to the GFR result. GFR, >60 >=60 mL/min/1.73 sq [facility] CHINESE meter LABORATORY SERVICES - [place] ANION GAP 14 (H) 4 - 13 mmol/L [facility] - [place] Specimen Blood Performing Organization Address City/State/Zipcode Ph one Number [facility] LABORATORY SERVICES CLIA # [id number] [place] [address] - [place] [address] [facility] LABORATORY SERVICES CLIA # [id number] [place] [address] - [place] [address] * CBC WITH DIFFERENTIAL (09/21/2017 10:59 AM CDT) WBC 8.2 4.0 - 11.0 K/uL [facility] - [place] RBC 4.23 4.20 - 5.40 M/uL [facility] [place] HEMOGLOBIN 12.4 (L) 12.5 - 16.0 g/dL [facility] [place] HEMATOCRIT 37.9 37.0 - 47.0 % [facility] [place] MCV 89.6 78.0 - 100.0 fL [facility] [place] MCH 29.3 27.0 - 34.0 pg [facility] [place] MCHC 32.7 31.0 - 37.0 g/dL [facility] [place] RDW 14.3 12.0 - 15.0 % [facility] [place] RDW-STDEV 46.1 37.1 - 48.7 fL [facility] [place] PLATELETS 285 150 - 450 K/uL [facility] [place] MPV 9.9 9.3 - 12.4 fL [facility] [place] NEUTROPHILS 61 31 - 76 % [facility] [place] LYMPHOCYTES 29 24 - 44 % [facility] [place] MONOCYTES 8 2 - 11 % [facility] [place] EOSINOPHILS 2 0 - 6 % [facility] [place] BASOPHILS 0 0 - 2 % [facility] [place] IMMATURE 0 0 - 2 % [facility] GRANULOCYTES LAB[facility]ATORY SERVICES - [place] NEUTROPHIL 4.97 1.80 - 7.70 K/uL [facility] ABSOLUTE [facility] - [place] LYMPHOCYTE 2.39 1.00 - 4.80 K/uL [facility]UTE [facility] - [place] MONOCYTE 0.65 0.10 - 1.30 K/uL [facility] - [place] EOSINOPHIL 0.12 0.00 - 0.70 K/uL [facility] - [place] BASOPHILS 0.03 0.00 - 0.20 K/uL [facility] - [place] IMMATURE 0.02 0.00 - 0.10 K/uL [facility] GRANULOCYTES LABORATORY ABSOLUTE SERVICES - [place] Specimen Blood Performing Organization Address City/State/Zipcode Ph one Number [facility] CLIA # [id number] [place] [address] - [place] 100 [facility] SERVICES CLIA # [id number] [place] [address] - [place] [address] [facility] * COMPLEMENT C3/C4 PANEL (09/21/2017 10:59 AM CDT) COMPLEMENT C3 134 75 - 175 mg/dL [facility] COMPLEMENT C4 29 14 - 40 mg/dL [facility] Comment: LABORATORIES - Test Performed by: [facility] [address] [place] [address] Specimen Blood Performing Organization Address [facility] Ph one Number [facility] [phone] - [facility] * SJOGREN'S ANTIBODIES (09/21/2017 10:59 AM CDT) SJOGRENS ABS <0.2 <1.0 (Negative) U [facility] LABORATORIES - [facility] SJOGRENS ABS <0.2 <1.0 (Negative) U [facility] ([facility]) Comment: LABORATORIES - Test Performed by: [address] [address] Specimen Blood Performing Organization Address [facility] Ph one Number [facility] [phone] - [facility] * HEPATITIS B SURFACE AB, QUANT (09/21/2017 10:59 AM CDT) HEPATITIS B Positive [facility], Comment: LABORATORIES - QUAL Patient is considered to be [place] immune to infection with HBV. REFERENCE VALUE - Unvaccinated: Negative Vaccinated: Positive HEPATITIS B 257 mIU/mL [facility] Comment: LABORATORIES - REFERENCE [place] VALUE - Unvaccinated: <5.0 Vaccinated: >=12.0 Test Performed by: [facility] [address] [place] [address] Specimen Blood Performing Organization Address City/[facility] Ph one Number [facility] [phone] - [place] [facility] [place] * HEPATITIS B CORE IGM (09/21/2017 10:59 AM CDT) Pathologist [facility] HEPATITIS B Non-reactive Non-reactive [facility] CORE IGM LABORATORY SERVICES - [place] Specimen Blood Performing Organization Address City/[facility] Ph one Number [facility] LABORATORY SERVICES CLIA # [id number] [place] [address] - [place] 100 [facility] LABORATORY SERVICES CLIA # [id number] [place] [address] - [place] 100 [facility] * HEPATITIS C ANTIBODY W REFLEX (09/21/2017 10:59 AM CDT) [facility] HEPATITIS C AB NON-REACTIVE Non-reactive [facility] LABORATORY [facility] [place] Specimen Blood Performing Organization Address [facility] Ph one Number [facility] LABORATORY SERVICES CLIA # [id number] [place] [address] - [place] 100 [facility] LABORATORY SERVICES CLIA # [id number] [place] [address] - [place] 100 [facility] * QUANTIFERON TB GOLD (09/21/2017 10:59 AM CDT) [facility] QUANTIFERON(R)- Negative Negative [facility] TB GOLD Comment: LABORATORIES - No interferon-gamma response JO to M. tuberculosis antigens was detected. Infection with M. tuberculosis is unlikely. A single negative result does not exclude infection with M. tuberculosis. In patients at high risk for M.tuberculosis infection, a second test should be considered in accordance with the 2017 ATS/IDSA/CDC Clinical Practice Guidelines for Diagnosis of Tuberculosis in Adults and Children [Donavaninsohn DM et. al. Clin. Infect. Dis. 2017;64(2):111-115]. TB1 AG - NIL 0.02 IU/mL [facility] [place] TB2 AG - NIL 0.01 IU/mL [facility] [place] MITOGEN-NIL >10.00 IU/mL [facility] [place] NIL 0.02 IU/mL [facility] Comment: LABORATORIES - Test Performed by: [place] [facility] - [facility] [address] [place] [address] Specimen Blood Performing Organization Address City/[facility] one Number [facility] LABORATORIES [phone] - [place] [facility] [place] * HEPATITIS B SURFACE ANTIGEN (09/21/2017 10:59 AM CDT) HEPATITIS B NON-REACTIVE Non-reactive [facility] SURFACE AG LABORATORY SERVICES - [place] Specimen Blood Performing Organization Address City/[facility] Ph one Number [facility] LABORATORY SERVICES CLIA # [id number] [place] [address] - [place] 100 [facility] LABORATORY SERVICES CLIA # [id number] [place] [address] - [place] 100 [facility] documented in this encounter Visit Diagnoses Diagnosis High risk medication use Encounter for long-term (current) use o f other medications Inflammatory pseudotumor of right orbit Hematuria, unspecified type Proteinuria, unspecified type documented in this encounter
--- OUTSIDE RECORDS SUMMARY | 2019-09-21 04:02 | XMS REPORT | Encounter Summary ---
Author Author [facility] [place] [place], [facility] Organization [facility] [place], [place], [facility] Address Unknown Phone Unavailable Care Team Providers Care Fraternity House Cook Name Role Phone Mayra Bermudez APRN PCP Unavailable Encounter Details Care Team Description Date Type Department AMBULANCE, [facility] Cervicalgia (Primary Dx) 07/04/2006 Outpatient [facility] Historical [facility] access hospital[address] [place] [address] Social History Date Tobacco Use Types Packs/Day Years Used Never Assessed Sex Assigned at Date Recorded Not on file Industry Job Start Date Occupation Not on file Not on file Not on file Travel End Travel History Travel Start No recent travel history available. documented as of this encounter Plan of Treatment Not on filedocumented as of this encounter Visit Diagnoses Diagnosis Cervicalgia - Primary documented in this encounter
--- OUTSIDE RECORDS SUMMARY | 2019-09-21 04:02 | XMS REPORT | Encounter Summary ---
Author Author [facility] [place], [facility] Address Unknown Phone Unavailable Care Team Providers Care Cook Helper Juice Name Role Phone PCP Unavailable Encounter Details Care Team Description Date Type Department Dyllan Crowley MD [address] [facility] [address] [place] [id number] 07/27/2017 Abstract [facility] Rheuma tology [address] [facility] [address] [place] [address] Social History Date Tobacco Use Types Packs/Day Years Used Never Assessed Sex Assigned at Date Recorded Not on file Industry Job Start Date Occupation Not on file Not on file Not on file Travel End Travel History Travel Start No recent travel history available. documented as of this encounter Plan of Treatment Not on filedocumented as of this encounter Visit Diagnoses Not on filedocumented in this encounter
--- OUTSIDE RECORDS SUMMARY | 2019-09-21 04:02 | XMS REPORT | Encounter Summary ---
Author Author [facility] Organization [facility] [place], [facility] Address Unknown Phone Unavailable Care Team Providers Care Flavor Room Worker Name Role Phone Mayra Bermudez APRN PCP Unavailable Reason for Referral * Eval and Treat (Routine) Referred By Contact Referred To Contact Status Reason Specialty Diagnoses / Procedures Dyllan Crowley MD [address] [address] [place] [address] Closed Ophthalmology Diagnoses Inflammatory pseudotumor of right orbit Reason for Visit * Reason Comments Follow Up Encounter Details Care Team Description Date Type Department Dyllan Crowley MD [address] [place], [place] [address] [facility] [address] [place] [address] Inflammatory pseudotumor of right orbit (Primary Dx); Dacryoadenitis of right lacrimal gland; Fibromyalgia; High risk medication use 11/16/2017 Office Visit [facility] Rheuma tology [place] [address] [address] [place] [address] Social History Date Tobacco Use Types Packs/Day Years Used Quit: 09/16/2017 Former Smoker Cigarettes 0.25 Smokeless Tobacco: Never Used Comments: Patient is a passive smoker/ S he calculated about 1 pack per week. Drinks/Week oz/Week Comments Alcohol Use No Sex Assigned at Date Recorded Not on file Industry Job Start Date Occupation Not on file Not on file Not on file Travel End Travel History Travel Start No recent travel history available. documented as of this encounter Last Filed Vital Signs Reading Time Taken Comments Vital Sign 103/66 11/16/2017 10:08 AM CDT Blood Pressure 104 11/16/2017 10:08 AM CDT Pulse - - Temperature - - Respiratory Rate - - Oxygen Saturation - - Inhaled Oxygen Concentration 96.2 kg (212 lb) 11/16/2017 10:08 AM CDT Weight 154.9 cm (5' 1") 11/16/2017 10:08 AM CDT Height 40.06 11/16/2017 10:08 AM CDT Body Mass Index documented in this encounter Progress Notes * Dyllan Crowley MD - 11/16/2017 10:12 AM CDT [facility]: Ms. Opal Trimble is a 27 y.o. 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 Her labs showed normal CRP, negative RF/CCP, normal IgG4 levels, n ormal RG level, negative ANCA, was referred to optho but has not seen them yet, had a negative ONEYDA at the PCP office. Reports that when she was on Imuran it caused itching so stopped, when she was o n MTX for 1 year she had GI upset and could not tolerate the PO MTX, was never o n [place] MTX as a steroid sparing agent, was on prednisone back then by LAKISHA wallace, g ained 60 lbs and made her irritable, this all was in 2014 and has not followed u p with either rheum or ophtho since then. Denies being on a daily steroids at th e time being, still has episodes of pain in her right lateral eye, with blurry o f vision and headaches and says she "can feel the enlarged lacrimal gland in her right eye". She has used NSAIDs, anti histamines and smokes marijuana which see ms to help with her eye pain on the right side, denies any similar Sx in her lef t eye, is asking if she could have surgery to remove the lacrimal gland that is enlarged or not which I explained to her that I do not really know hence the genia son I need her to see optho again. Past Medical History: Diagnosis Date Patient denies relevant medical history Past Surgical History: Procedure Laterality Date HX SECTION HX ECTOPIC SURGERY HX GASTRECTOMY 2012 Current Outpatient Prescriptions Medication Sig Dispense Refill VALERIAN ROOT ORAL Take by mouth. amphetamine-dextroamphetamine (ADDERALL XR) 10 mg Extended Release 24 hour c apsule 10 mg. cetirizine (ZyrTEC) 10 mg tablet 10 mg. clonazePAM (KlonoPIN) 1 mg tablet fexofenadine (FROILAN) 180 mg tablet 180 mg. FLUoxetine (PROzac) 20 mg capsule 20 mg. No current facility-administered medications for this visit. Allergies Allergen Reactions Poppyseed Oil Anaphylaxis "Throat starts to close" Sulfa (Sulfonamide Antibiotics) Hives Social History Substance Use Topics Smoking status: Former Smoker Packs/day: 0.25 Types: Cigarettes Quit date: 09/16/2017 Smokeless tobacco: Never Used Comment: Patient is a passive smoker/ She calculated about 1 pack per week. Alcohol use No No family history on file. Medications: Outpatient Prescriptions Marked as Taking for the 11/16/17 encounter (Office Visi t) with Dyllan Crowley MD Medication Sig Dispense Refill VALERIAN ROOT ORAL Take by mouth. amphetamine-dextroamphetamine (ADDERALL XR) 10 mg Extended Release 24 hour c apsule 10 mg. cetirizine (ZyrTEC) 10 mg tablet 10 mg. clonazePAM (KlonoPIN) 1 mg tablet fexofenadine (FROILAN) 180 mg tablet 180 mg. FLUoxetine (PROzac) 20 mg capsule 20 mg. Allergies: She is allergic to poppyseed oil and sulfa (sulfonamide antibiotics). Review of Systems: Review of Systems Constitutional: Positive for malaise/fatigue. Negative for chills and fever. HENT: Negative for ear pain and nosebleeds. Eyes: Positive for blurred vision and pain. Negative for discharge. Respiratory: Negative for cough and hemoptysis. Cardiovascular: Negative for chest pain and leg swelling. Gastrointestinal: Negative for abdominal pain and diarrhea. Genitourinary: Negative for dysuria and hematuria. Musculoskeletal: Positive for joint pain and myalgias. Skin: Negative for itching and rash. Neurological: Negative for dizziness and tingling. Endo/Heme/Allergies: Negative for environmental allergies. Does not bruise/bleed easily. Psychiatric/Behavioral: Positive for depression and substance abuse. Objective: Physical Examination BP 103/66 | Pulse (!) 104 | Ht 5' 1" (1.549 m) | Wt 96.2 kg (212 lb) | BMI 4 0.06 kg/m Body mass index is 40.06 kg/m. Body surface area is 2.03 meters squared. General: pleasant female in no apparent distress. HEENT: ALEJO, EOMI. Conjunctiva and sclerae were non-injected. Oropharynx was cl ear. No mucosal lesions were seen. Mucosal membranes were moist. Neck: Good range of motion. No LAD detected Lungs: clear to auscultation and percussion bilaterally. CV: Regular rate and rhythm. Normal S1 and S2. No murmur, rubs, or gallops we re appreciated. Pulses were full. No peripheral edema. Abdomen: Bowel sounds were present. Soft; nontender. No organomegaly Skin: No rashes or ulcers seen Neuro: The patient was active, alert and oriented x 3. Muscle strength was 5/5 throughout. Neurological examination non-focal. Gait was normal. MSK: Normal range of motion of all joints. No joint swelling, erythema, warmth or tenderness noted. No synovitis appreciated. Imaging Last DEXA T-score values No results found for: TSCORFEMUR, TSCORSPINE, TSCORHEEL, TSCORWRIST Results for orders placed during the hospital encounter of 09/21/17 XR THORACIC SPINE 3 VW Impression Impression: Thoracic spine: No acute osseous abnormality Lumbar spine: No acute osseous abnormality Lab Review Lab Results Component Value Date/Time ANTISSARO <0.2 09/21/2017 10:59 AM ANTISSBLA <0.2 09/21/2017 10:59 AM CCPABIGG <15.6 09/21/2017 10:59 AM CRP 2.5 09/21/2017 10:59 AM [id number] 134 09/21/2017 10:59 AM [id number] 29 09/21/2017 10:59 AM ESR 36 (H) 09/21/2017 10:59 AM RHEUMFACTOR <10 09/21/2017 10:59 AM Lab Results Component Value Date/Time PHUA 6.0 09/21/2017 10:59 AM SGUR 1.013 09/21/2017 10:59 AM URINELEUKOC Negative 09/21/2017 10:59 AM NITRITEUA Negative 09/21/2017 10:59 AM KETONEURINE Negative 09/21/2017 10:59 AM PROTEINUA Negative 09/21/2017 10:59 AM GLUUA Negative 09/21/2017 10:59 AM BLOODUA Trace (A) 09/21/2017 10:59 AM WBCU 0-2 09/21/2017 10:59 AM RBCUA 0-2 09/21/2017 10:59 AM BACTERIAUA 2+ (A) 09/21/2017 10:59 AM UREPITHELIAL 6-10 (A) 09/21/2017 10:59 AM Lab Results Component Value Date/Time WBC 8.2 09/21/2017 10:59 AM HGB 12.4 (L) 09/21/2017 10:59 AM HCT 37.9 09/21/2017 10:59 AM PLT 285 09/21/2017 10:59 AM MCV 89.6 09/21/2017 10:59 AM ALT 13 09/21/2017 10:59 AM AST 15 09/21/2017 10:59 AM NA 138 09/21/2017 10:59 AM K 3.8 09/21/2017 10:59 AM CL 102 09/21/2017 10:59 AM CO2 22 09/21/2017 10:59 AM CREAT 0.81 09/21/2017 10:59 AM BUN 7 09/21/2017 10:59 AM Assessment: 27 yr old female with a hx of enlarged right sided lacrimal gland since 2014 dis covered on a brain MRI, in May 2014. Saw LAKISHA camarena who diagnosed her with an orbi keo pseudotumor of the right lacrimal gland, started her on Prednisone, then ref erred to [employer] Dr. Lebron who started her on Imuran which caused itching so she stopped it, then was switched to MTX PO as an attempt to taper her steroi ds further but she had GI side effects with MTX so she stopped it, gained a lot of weight with prednisone so she stopped it. Never followed with rheum or ophtho since then. Did have rep[eat imaging with a CT of her orbits in November 2014 after being on prednisone for 6 months which did not show any orbital masses. I did an extensive rheum workup as above to evaluate for possible causes of orbi keo pseudotumor, her ONEYDA was negative, RF/CCP negative, ANCA was negative, her I gG4 level was normal, her CRP was normal, Sjogren labs were negative, complement s C3/C4 were all normal. Has joint and muscle pain that is most likely related t o fibromyalgia. Her eye Sx are still active causing headaches, eye pain, blurry vision for which she has been taking anti histamines, NSAIDs and smokes marijuana, says she can "feel the enlarged lacrimal gland in the corner of her right eye". 1. Right sided lacrimal gland enlargement and Dx of orbital pseudo tumor - refer back to ophthalmology at for evaluation - see her back if needed once she sees [facility] - I reviewed her MRI done in 2014 showing a slightly enlarged right sided lacrim al gland compared to the left one 2. Fibromyalgia - defer management to PCP - on Prozac which seems to be helping her mood 3. High risk med use - hep B,C and TB all negative in case DMARDs are needed I had an extensive discussion with her and her significant other in clinic today about orbital pseudo tumor and associated autoimmune diseases, discussed the ne gative rheumatological workup done so far, the need to see ophtho back and decid e if repeat imaging is needed or not and if surgery can be done, all questions w ere answered to the best of my knowledge. Plan: ICD-10-CM ICD-9-CM 1. Inflammatory pseudotumor of right orbit H05.111 376.11 2. Dacryoadenitis of right lacrimal gland H04.001 375.00 3. Fibromyalgia M79.7 729.1 4. High risk medication use Z79.899 V58.69 Time spent in this encounter 40 minutes with greater than 50% face to face in co ordination of care along with discussing treatment plan, goals of care and expec tations. She voiced understanding and agreement with the treatment plan. She understands the importance of taking her medications and keeping all follow-up appointments . All questions were answered. [id number] will be provided to patient upon check-out. [facility] Rhe[facility]ology [facility] documented in this encounter Miscellaneous Notes * Addendum Note - Negrita Alexander - 11/16/2017 10:20 AM CDT Addended by: NEGRITA ALEXANDER on: 11/16/2017 11:53 AM Modules accepted: Orders documented in this encounter Plan of Treatment Order Schedule Name Type Priority Associated Diag noses Ordered: 11/16/2017 AMB REFERRAL TO Outpatient Routine Inflammatory p seudotumor OPHTHALMOLOGY Referral of right orbit documented as of this encounter Visit Diagnoses Diagnosis Inflammatory pseudotumor of right orbit - Primary Dacryoadenitis of right lacrimal gland Dacryoadenitis, unspecified Fibromyalgia Mylagia and myositis, unspecified High risk medication use Encounter for long-term (current) use o f other medications documented in this encounter
--- OUTSIDE RECORDS SUMMARY | 2019-09-21 04:02 | XMS REPORT | Encounter Summary ---
Author Author [facility] [place], [facility] Organization [facility] [place], [place], [facility] Address Unknown Phone Unavailable Care Team Providers Care Customer Operations Specialist Name Role Phone Mayra Bermudez APRN PCP Unavailable Reason for Referral * Eval and Treat (Routine) Referred By Contact Referred To Contact Status Reason Specialty Diagnoses / Procedures Dyllan Crowley MD [address] [facility] [address] [place] [address] Huey Sutton MD [address] 4th [place] [address] Closed Ophthalmology Diagnoses Inflammatory pseudotumor of right orbit Reason for Visit * Reason Comments Raynauds Patient has "awful back danny n" that restricts her movement. She has a lacromil tumor which she thinks might c ause her frequent migrane headaches. She has reoccuring staph infections due to scratching her skin, which is very itchy. She has taken mutiple round s of antibiotic. * Eval and Treat (Routine) Referred By Contact Referred To Contact Status Reason Specialty Diagnoses / Procedures Mayra Bermudez APRN NO ADDRESS ON FILE Dyllan Crowley MD [address] [facility] [address] [place] [address] Closed Rheumatology Diagnoses Raynaud's syndrome Encounter Details Care Team Description Date Type Department Dyllan Crowley MD [address] [facility] [address] [place] [address] [phone] Inflammatory pseudotumor of right orbit (Primary Dx); Osteoarthritis of spine with radiculopathy, thoracic region; Hematuria, unspecified type; Proteinuria, unspecified type; Raynaud's disease without gangrene; High risk medication use 09/21/2017 Office Visit [facility] Rheuma isabellaogy [place] [address] [facility] [address] [place] [id number] Social History Date Tobacco Use Types Packs/Day Years Used Light Tobacco Smoker Cigarettes 0.25 Smokeless Tobacco: Never Used [...] Signs Reading Time Taken Comments Vital Sign 117/84 09/21/2017 9:21 AM CDT Blood Pressure 91 09/21/2017 9:21 AM CDT Pulse 36.6 C (97.8 F) 09/21/2017 9:21 AM CDT Temperature - - Respiratory Rate 98% 09/21/2017 9:21 AM CDT Oxygen Saturation - - Inhaled Oxygen Concentration 95.3 kg (210 lb) 09/21/2017 9:21 AM CDT Weight 154.9 cm (5' 1") 09/21/2017 9:21 AM CDT Height 39.68 09/21/2017 9:21 AM CDT Body Mass Index documented in this encounter Progress Notes * Dyllan Crowley MD - 09/21/2017 9:35 AM CDT Rheumatology Initial Visit Subjective Chief Complaint Patient presents with Raynauds Patient has "awful back pain" that restricts her movement. She has a lacromil tumor which she thinks might cause her frequent migrane headaches. She has reocc uring staph infections due to scratching her skin, which is very itchy. She has taken mutiple rounds of antibiotic. Referring Physician/Clinic: Aidan HPI: Ms. Opal Trimble is a 27 y.o. female Reports she was diagnosed with SLE by her PCP based on Sx of itching due to rash es and body pain mainly on the right side, back pain is the worst, has seen chir opractor, was told she had protein in her urine. Denies any hx of bx of the rash es, was on MTX in the past by Dr. Lebron, for orbital pseudotumor she had, had rocío e effects of MTX so stopped it, says it helped with the swelling. Is not on any daily prednisone, last intake was 1 week ago, for middle ear. Has also been on I muran for her orbital pseudotumor which caused itching, tried for 1.5 weeks. Denies any nodules, has had rashes on her fingers, arms, no bx done as above. Hill s had rash on her thighs. Has never had a renal bx. Rheumatology ROS Positive for: fatigue, arthralgia Rheumatology ROS Negative for: muscle weakness, Raynaud's, oral ulcers, nodules Patient Active Problem List Diagnosis Code Raynaud's disease without gangrene I73.00 Current Outpatient Prescriptions Medication Sig Dispense Refill amphetamine-dextroamphetamine (ADDERALL XR) 10 mg Extended Release 24 hour c apsule 10 mg. cetirizine (ZyrTEC) 10 mg tablet 10 mg. clonazePAM (KlonoPIN) 1 mg tablet fexofenadine (FROILAN) 180 mg tablet 180 mg. FLUoxetine (PROzac) 20 mg capsule 20 mg. mupirocin calcium (BACTROBAN) 2 % Cream ondansetron (ZOFRAN ODT) 4 mg Tablet, Rapid Dissolve 4 mg. No current facility-administered medications for this visit. Allergies Allergen Reactions Poppyseed Oil Anaphylaxis "Throat starts to close" Sulfa (Sulfonamide Antibiotics) Hives Social History Substance Use Topics Smoking status: Light Tobacco Smoker Packs/day: 0.25 Types: Cigarettes Smokeless tobacco: Never Used Comment: Patient is a passive smoker/ She calculated about 1 pack per week. Alcohol use No Family hx Sister has SLE and father has Crohns Review of Systems Constitutional: Positive for malaise/fatigue. Negative for chills and fever. HENT: Positive for hearing loss. Negative for ear pain and nosebleeds. Eyes: Negative for pain and redness. Respiratory: Negative for cough and hemoptysis. Cardiovascular: Positive for leg swelling. Negative for chest pain. Gastrointestinal: Negative for abdominal pain and diarrhea. Genitourinary: Negative for dysuria and hematuria. Musculoskeletal: Positive for back pain and myalgias. Skin: Positive for itching and rash. Neurological: Negative for dizziness and tingling. Endo/Heme/Allergies: Negative for environmental allergies. Does not bruise/bleed easily. Psychiatric/Behavioral: Negative for depression and substance abuse. Objective Physical Examination: BP 117/84 (BP Location: Left arm, Patient Position (BP): Sitting, BP Cuff Size: Adult) | Pulse 91 | Temp 97.8 F (36.6 C) (Oral) | Ht 5' 1" (1.549 m) | W t 95.3 kg (210 lb) | LMP 08/24/2017 | SpO2 98% | ? No | BMI 39. 68 kg/m Body surface area is 2.03 meters squared. General: female in no apparent distress. HEENT: ALEJO, EOMI. Conjunctiva and sclerae were non-injected. Oropharynx was cl ear. No mucosal lesions were seen. Mucosal membranes were moist. Neck: Good range of motion. No LAD detected. Lungs: clear to auscultation and percussion bilaterally. CV: Regular rate and rhythm. Normal S1 and S2. No murmur, rubs, or gallops we re appreciated. Abdomen: Bowel sounds were present. Soft; nontender. Skin: No rashes or ulcers seen Neuro: AAOx3. Muscle strength 5/5 throughout. Neurological examination non-fo jeni. Gait was normal. MSK: Normal range of motion of all joints. No joint swelling/warmth or synoviti s appreciated. Imaging None Lab Review Outside labs reviewed 07/06/17 TSH 0.93 Cr 0.8 LFT normal WBC: 7.3, Hgb: 11.8, Hct: 35, Plt: 279 CRP 2.6 ESR 42 08/16/2014 ONEYDA neg RF neg Assessment 27 yr old female with a Dx of idiopathic right sided orbital pseudotumor in 2014 was seeing optho at Dr. Rabago who gave her steroids, then was referred to Dr. Richardson a fish frog or oyster farmer who tried her on Imuran which caused itching and then was on MTX which caused GI side effects so it was stopped, has not had a recent ep isode of swelling recently, her main c/o paraspinal muscle pain that I will get images of today and refer possibly to pain management. 1. Orbital pseudotumor - check ANCA, RF, SSA/SSB, IgG4 levels - check ESR and CRP - will need to see optho rather than optometry locally as she has [facility] d - check hep B,C and TB 2. Paraspinal muscle spasm - get T and L spine xrays today - discuss pain management with her PCP 3. High risk med use - check hep B,C and TB - check basic labs Plan ICD-10-CM ICD-9-CM 1. Inflammatory pseudotumor of right orbit H05.111 376.11 ANTINEUTROPHIL CYTOPLA SMIC ANTIBODY SEDIMENTATION RATE C-REACTIVE PROTEIN ANGIOTENSIN CONVERTING ENZYME IGG SUBCLASSES RHEUMATOID FACTOR CYCLIC CITRULLINATED PEPTIDE AB IGG CBC WITH DIFFERENTIAL COMPREHENSIVE METABOLIC PANEL SJOGREN'S ANTIBODIES COMPLEMENT C3/C4 PANEL 2. Osteoarthritis of spine with radiculopathy, thoracic region M47.24 721.2 XR L UMBAR SPINE 4+ VW XR THORACIC SPINE 3 VW 3. Hematuria, unspecified type R31.9 599.70 PROTEIN/CREATININE RATIO, URINE MICROALBUMIN/CREATININE RATIO, RANDOM UR URINALYSIS WITH REFLEX MICROSCOPIC 4. Proteinuria, unspecified type R80.9 791.0 PROTEIN/CREATININE RATIO, URINE MICROALBUMIN/CREATININE RATIO, RANDOM UR URINALYSIS WITH REFLEX MICROSCOPIC 5. Raynaud's disease without gangrene I73.00 443.0 6. High risk medication use Z79.899 V58.69 HEPATITIS C ANTIBODY W REFLEX HEPATITIS B CORE IGM HEPATITIS B SURFACE AB, QUANT HEPATITIS B SURFACE ANTIGEN QUANTIFERON TB GOLD Data Unavailable Time spent in this encounter 60 minutes with greater than 50% face to face in co ordination of care along with discussing treatment plan, goals of care and expec tations. documented in this encounter Miscellaneous Notes * Addendum Note - Mirna Ruelas CMA - 09/21/2017 9:00 AM CDT Addended by: MIRNA RUELAS on: 09/21/2017 10:17 AM Modules accepted: Orders documented in this encounter Plan of Treatment Order Schedule Name Type Priority Associated Diag noses Ordered: 09/21/2017 AMB REFERRAL TO Outpatient Routine Inflammatory p seudotumor OPHTHALMOLOGY Referral of right orbit documented as of this encounter Results * QUANTIFERON TB GOLD (09/21/2017 10:59 AM CDT) [facility] QUANTIFERON(R)- Negative Negative [facility] TB GOLD Comment: LABORATORIES - No interferon-gamma response JO to M. tuberculosis antigens was detected. Infection with M. tuberculosis is unlikely. A single negative result does not exclude infection with M. tuberculosis. In patients at high risk for M.tuberculosis infection, a second test should be considered in accordance with the 2017 ATS/IDSA/CDC Clinical Practice Guidelines for Diagnosis of Tuberculosis in Adults and Children [Lewinsohn DM et. al. Clin. Infect. Dis. 2017;64(2):111-115]. TB1 AG - NIL 0.02 IU/mL [facility] TB2 AG - NIL 0.01 IU/mL [facility] MITOGEN-NIL >10.00 IU/mL [facility] NIL 0.02 IU/mL [facility] Comment: LABORATORIES - Test Performed by: HORACE [facility] [address] [place] [address] Specimen Blood Performing Organization Address [facility] Ph one Number [facility] [phone] - [facility] - [facility] * HEPATITIS B SURFACE ANTIGEN (09/21/2017 10:59 AM CDT) [facility] HEPATITIS B NON-REACTIVE Non-reactive [facility] LAB[facility]ATORY SERVICES - [place] Specimen Blood Performing Organization Address City/[facility] Ph one Number [facility] LABORATORY SERVICES CLIA # [id number] [place] [address] - [place] 100 [facility] LABORATORY SERVICES CLIA # [id number] [place] [address] - [facility] 100 [facility] * HEPATITIS B SURFACE AB, QUANT (09/21/2017 10:59 AM CDT) Pathologist [facility] HEPATITIS B Positive [facility] SURFACE AB, Comment: LABORATORIES - QUAL Patient is considered to be [place] immune to infection with HBV. REFERENCE VALUE - Unvaccinated: Negative Vaccinated: Positive HEPATITIS B 257 mIU/mL [facility] SURFACE AB Comment: LABORATORIES - REFERENCE JO VALUE - Unvaccinated: <5.0 Vaccinated: >=12.0 Test Performed by: [facility] [address] [place] [address] Specimen Blood Performing Organization Address [facility] Ph one Number [facility] [place] [phone] - [place] [facility] [place] * HEPATITIS B CORE IGM (09/21/2017 10:59 AM CDT) Pathologist [facility] HEPATITIS B Non-reactive Non-reactive [facility] CORE IGM LABORATORY SERVICES - [place] Specimen Blood Performing Organization Address [facility] Ph one Number [facility] LABORATORY SERVICES CLIA # [id number] [place] [address] - [place] [address] [facility] ONOFF[place] (?) LABORATORY SERVICES CLIA # [id number] [place] [address] - [facility] 100 [facility] [place] * HEPATITIS C ANTIBODY W REFLEX (09/21/2017 10:59 AM CDT) Pathologist [facility] HEPATITIS C AB NON-REACTIVE Non-reactive [facility] LABORATORY SERVICES - [place] Specimen Blood Performing Organization Address [facility] Ph one Number [facility]ORATORY SERVICES CLIA # [id number] [place] [address] - [place] [address] [facility] ONOFF[employer] (?)Y LABORATORY SERVICES CLIA # [id number] [place] [address] - [place] [address] [facility] [place] * COMPLEMENT C3/C4 PANEL (09/21/2017 10:59 AM CDT) Pathologist [facility] COMPLEMENT C3 134 75 - 175 mg/dL [facility] LABORATORIES - [place] COMPLEMENT C4 29 14 - 40 mg/dL [facility] Comment: LABORATORIES - Test Performed by: HORACE [facility] - [facility] [place] [address] [place] [address] Specimen Blood Performing Organization Address [facility] Ph one Number [facility] LABORATORIES [phone] - [facility] LABORATORIES - [place] * SJOGREN'S ANTIBODIES (09/21/2017 10:59 AM CDT) SJOGRENS ABS <0.2 <1.0 (Negative) U [facility] (SSA) LABORATORIES - [place] SJOGRENS ABS <0.2 <1.0 (Negative) U [facility] (SSB) Comment: LABORATORIES - Test Performed by: HORACE [facility] Laboratories - [address] [address] Specimen Blood Performing Organization Address [facility] Ph one Number [facility] LABORATORIES [phone] - [facility] - [place] * URINALYSIS WITH REFLEX MICROSCOPIC (09/21/2017 10:59 AM CDT) COLOR UA Yellow Pale to dark yellow [facility] [place] CLARITY UA Slightly Cloudy (A) Clear [facility] [place] SPECIFIC 1.013 1.003 - 1.035 [facility] GRAVITY [facility] - [place] PH UA 6.0 5.0 - 8.0 [facility] [place] LEUKOCYTE Negative Negative [facility] ESTERASE [facility] - [place] NITRITE UA Negative Negative [facility] [place] PROTEIN UA Negative Negative [facility] [place] GLUCOSE UA Negative Negative [facility] [place] KETONES UA Negative Negative [facility] [place] UROBILINOGEN UA <2.0 <2.0 mg/dL [facility] [place] BILIRUBIN UA Negative Negative [facility] [place] BLOOD UA Trace (A) Negative [facility] [place] WBC UA 0-2 0 - 2 /hpf [facility] [place] RBC UA 0-2 0 - 2 /hpf [facility] [place] BACTERIA UA 2+ (A) Negative /hpf [facility] [place] EPITHELIAL 6-10 (A) 0 - 5 /hpf [facility] CELLS, URINE LAB[facility]ATORY SERVICES - [place] HYALINE CAST 11-25 (A) None Seen, 0-2 /lpf [facility] [place] Specimen Urine - Urine specimen obtained by clean catch procedure (specimen) Performing Organization Address [facility] one Number [facility] LABORATORY SERVICES CLIA # [id number] [place] [address] - [place] [address] [facility] [address] [facility] LABORATORY SERVICES CLIA # [id number] [place], [place] [address] - [place] [address] [facility] [address] * MICROALBUMIN/CREATININE RATIO, RANDOM UR (09/21/2017 10:59 AM CDT) MICROALBUMIN, <1.2 0.0 - 1.9 mg/dL [facility] URINE LABORATORY SERVICES - [place] CREATININE, 151.4 29.0 - 226.0 mg/dL [facility] URINE Comment: LABORATORY Reference Range varies with SERVICES - fluid intake and diet. [place] MICROALBUMIN/CR <7.9 <25.0 mg/g [facility] EAT RATIO, UR LABORATORY SERVICES - [place] Specimen Urine - Urine specimen obtained by clean catch procedure (specimen) Narrative Performed At Condition Microalbumin/Creat ratio [facility] LABORATORY S SPENCERES - [place] Normal Males <17 Normal Females <25 Microalbuminuria Males 17-299 Microalbuminuria Females 25-299 Overt proteinuria >=300 Performing Organization Address [facility] one Number [facility] LABORATORY SERVICES CLIA # [id number] [place] [address] - [place] 100 [facility] LABORATORY SERVICES CLIA # [id number] [place], [place] [address] - [place] 100 [facility] * PROTEIN/CREATININE RATIO, URINE (09/21/2017 10:59 AM [...] clean catch procedure (specimen) Performing Organization Address [facility]/State/Zipcode Ph one Number [facility] LABORATORY SERVICES CLIA # [id number] [place] [address] - [place] [address] [facility] LABORATORY SERVICES CLIA # [id number] [place] [address] - [place] 100 [facility] * COMPREHENSIVE METABOLIC PANEL (09/21/2017 10:59 AM CDT) [facility] SODIUM 138 136 - 145 mmol/L [facility] LABORATORY SERVICES - [place] POTASSIUM 3.8 3.5 - 5.1 mmol/L [facility] LABORATORY SERVICES - [place] CHLORIDE 102 98 - 107 mmol/L [facility] LAB[facility]ORY SERVICES - [place] CO2 22 22 - 29 mmol/L [facility] LAB[facility]ORY SERVICES - [place] CALCIUM 9.0 8.6 - 10.0 mg/dL [facility] LAB[facility]ORY SERVICES - [place] BUN 7 6 - 20 mg/dL [facility] LAB[facility]ORY SERVICES - [place] CREATININE 0.81 0.51 - 0.95 mg/dL [facility] LABORATORY SERVICES - [place] GLUCOSE 58 (L) 74 - 105 mg/dL [facility] LABORATORY SERVICES - [place] TOTAL PROTEIN 7.7 6.4 - 8.3 g/dL [facility] LABORATORY SERVICES - [place] ALBUMIN 4.2 4.0 - 4.9 g/dL [facility] LABORATORY SERVICES - [place] BILIRUBIN TOTAL 0.3 <=1.2 mg/dL [facility] - [place] ALKALINE 55 35 - 104 U/L [facility] LABORATORY SERVICES - [place] AST 15 0 - 32 U/L [facility] LABORATORY SERVICES - [place] ALT 13 0 - 33 U/L [facility] LABORATORY SERVICES - [place] GFR >60 >=60 mL/min/1.73 sq [facility] Comment: meter LABORATORY eGFR has not been [...] GFR result. GFR, >60 >=60 mL/min/1.73 sq [facility] LABORATORY SERVICES - [place] ANION GAP 14 (H) 4 - 13 mmol/L [facility] LABORATORY SERVICES - [place] Specimen Blood Performing Organization Address City/State/Zipcode Ph one Number [facility] LABORATORY SERVICES CLIA # [id number] [place] [address] - [place] [address] [facility] [address] [facility] LABORATORY SERVICES CLIA # [id number] [place] [address] - [place] 100 [facility] * CBC WITH DIFFERENTIAL (09/21/2017 10:59 AM CDT) WBC 8.2 4.0 - 11.0 K/uL [facility] LABORATORY SERVICES - [place] RBC 4.23 4.20 - 5.40 M/uL [facility] LAB[facility]AT[facility] SERVICES - [place] HEMOGLOBIN 12.4 (L) 12.5 - 16.0 g/dL [facility] - [place] HEMATOCRIT 37.9 37.0 - 47.0 % [facility] [place] MCV 89.6 78.0 - 100.0 fL [facility] - [place] MCH 29.3 27.0 - 34.0 pg [facility] [place] MCHC 32.7 31.0 - 37.0 g/dL [facility] [place] RDW 14.3 12.0 - 15.0 % [facility] [place] RDW-STDEV 46.1 37.1 - 48.7 fL [facility] - [place] PLATELETS 285 150 - 450 K/uL [facility] LAB[facility] SERVICES - [place] MPV 9.9 9.3 - 12.4 fL [facility] LAB[facility]ATORY SERVICES - [place] NEUTROPHILS 61 31 [...] [place] NEUTROPHIL 4.97 1.80 - 7.70 K/uL [facility] ABSOLUTE LABORATORY SERVICES - [place] LYMPHOCYTE 2.39 1.00 - 4.80 K/uL [facility] ABSOLUTE LABORATORY SERVICES - [place] MONOCYTE 0.65 0.10 - 1.30 K/uL [facility] ABSOLUTE LABORATORY SERVICES - [place] EOSINOPHIL 0.12 0.00 - 0.70 K/uL [facility] ABSOLUTE LABORATORY SERVICES - [place] BASOPHILS 0.03 0.00 - 0.20 K/uL [facility] ABSOLUTE LABORATORY SERVICES - [place] IMMATURE 0.02 0.00 - 0.10 K/uL [facility] GRANULOCYTES LABORATORY ABSOLUTE SERVICES - [place] Specimen Blood Performing Organization Address [facility] Ph one Number [facility] LABORATORY SERVICES CLIA # [id number] [place] [address] - [place] 100 [facility] LABORATORY SERVICES CLIA # [id number] [place] [address] [facility] * CYCLIC CITRULLINATED PEPTIDE AB IGG (09/21/2017 10:59 AM CDT) Pathologist [facility] CYCLIC <15.6 <20.0 (Negative) U [facility] L CITRULLINATED Comment: LABORATORIES - PEPTIDE AB IGG Test Performed by: HORACE [facility] - [address] [address] Specimen Blood Performing Organization Address [facility] one Number [facility] [phone] - [facility] [place] * RHEUMATOID FACTOR (09/21/2017 10:59 AM CDT) Pathologist [facility] RHEUMATOID <10 <=14 IU/mL [facility] FACTOR LABORATORY SERVICES - [place] Specimen Blood Performing Organization Address [facility] Ph one Number [facility] LABORATORY SERVICES CLIA # [id number] [place] [address] - [place] 100 [facility] LABORATORY SERVICES CLIA # [id number] [place] [address] - [place] * IGG SUBCLASSES (09/21/2017 10:59 AM CDT) IGG SUBCLASSES 1000 767 - 1590 mg/dL [facility] - [facility] IGG SUBCLASS 1 617 341 - 894 mg/dL [facility] - [place] IGG SUBCLASS 2 296 171 - 632 mg/dL [facility] - [place] IGG SUBCLASS 3 60.0 18.4 - 106.0 mg/dL [facility] LABORATORIES - [place] IGG SUBCLASS 4 53.8 2.4 - 121.0 mg/dL [facility] Comment: LABORATORIES - Test Performed by: HORACE [facility] Laboratories - [facility] [place] [address] [place] [address] Specimen Blood Performing Organization Address [facility] one Number [facility] [place] [phone] - [facility] - [place] * ANGIOTENSIN CONVERTING ENZYME (09/21/2017 10:59 AM CDT) Pathologist [facility] ANGIOTENSIN 22 8 - 53 U/L [facility] CONVERTING Comment: LABORATORIES - ENZYME Test Performed by: HORACE [facility] - [facility] [place] [address] [place] [address] Specimen Blood Performing Organization Address [facility] one Number [facility] LABORATORIES [phone] - [facility] [place] * C-REACTIVE PROTEIN (09/21/2017 10:59 AM CDT) Pathologist [facility] CRP 2.5 <=5.0 mg/L [facility] LABORATORY SERVICES - [place] Specimen Blood Performing Organization Address [facility] one Number [facility] LABORATORY SERVICES CLIA # [id number] [place] [address] - [place] 100 [facility] LABORATORY SERVICES CLIA # [id number] [place] [address] - [place] 100 [facility] * SEDIMENTATION RATE (09/21/2017 10:59 AM CDT) Pathologist [facility] ESR 36 (H) 0 - 20 mm/Hr [facility] (SEDIMENTATION LABORATORY RATE) SERVICES - [place] Specimen Blood Performing Organization Address [facility] one Number [facility] LABORATORY SERVICES CLIA # [id number] [place] [address] - [place] 100 [facility] LABORATORY SERVICES CLIA # [id number] [place] [address] - [place] 100 [facility] * ANTINEUTROPHIL CYTOPLASMIC ANTIBODY (09/21/2017 10:59 AM CDT) Pathologist [facility] MYELOPEROXIDASE <0.2 <0.4 (Negative) [facility] - [place] PROTEINASE 3 AB <0.2 <0.4 (Negative) [facility] Comment: LABORATORIES - Test Performed by: [facility] - [address] [address] Specimen Blood Performing Organization Address City/State/Zipcode Ph one Number [facility]ATOR[facility] [phone] - [facility] - [place] * XR LUMBAR SPINE 4+ VW (09/21/2017 10:41 AM CDT) Specimen Impressions Performed At Impression: INTERFACE SYSTEM Thoracic spine: No acute osseous abnormality Lumbar spine: No acute osseous abnormality Narrative Performed At AP, lateral and lateral swimmer's thoracic spine radi ographs INTERFACE SYSTEM AP, oblique and lateral lumbar spine ra diographs 09/21/2017 Indication: 27 years Female presents wi th back pain Comparison: None Findings: Thoracic spine: The thoracic vertebral body heights, al ignment and disc spaces are maintained. The pedicles are intact. There is no fracture or subluxation. There are 12 pairs of ri bs. The visualized lung springer are clear. There are surgical clips in the left upper quadrant. Lumbar spine: There are five weight bearing vertebral bodies. The lumbar vertebral body heights, disc spaces and alignment are maintained. There are no significant degenerative changes. The re is no fracture or subluxation. The pedicles are intact. The bilateral pars interarticulares are intact. The sacroi liac joints are symmetric. The visualized bowel gas pattern is within normal limits. Procedure Note Interface, [facility] Incoming Radiology Results - 09/21/2017 11:16 AM CDT AP, lateral and lateral swimmer's thoracic spine radiographs AP, oblique and lateral lumbar spine radiographs 09/21/2017 Indication: 27 years Female presents with back pain Comparison: None Findings: Thoracic spine: The thoracic vertebral body heights, alignment and disc spaces are maintained. The pedicles are intact. There is no fracture or subluxation. There are 12 pairs of ribs. The visualized lung springer are clear. There are surgical clips in the left upper quadrant. Lumbar spine: There are five weight bearing vertebral bodies. The lumbar vertebral body heights, disc spaces and alignment are maintained. There are no significant degenerative changes. There is no fracture or subluxation. The pedicles are intact. The bilateral pars interarticulares are intact. The sacroiliac joints are symmetric. The visualized bowel gas pattern is within normal limits. Impression: Thoracic spine: No acute osseous abnormality Lumbar spine: No acute osseous abnormality Performing Organization Address [facility] one Number INTERFACE SYSTEM INTERFACE SYSTEM Refer to clinic/hospital department * XR THORACIC SPINE 3 VW (09/21/2017 10:41 AM CDT) Specimen Impressions Performed At Impression: INTERFACE SYSTEM Thoracic spine: No acute osseous abnormality Lumbar spine: No acute osseous abnormality Narrative Performed At AP, lateral and lateral swimmer's thoracic spine radi ographs INTERFACE SYSTEM AP, oblique and lateral lumbar spine ra diographs 09/21/2017 Indication: 27 years Female presents wi th back pain Comparison: None Findings: Thoracic spine: The thoracic vertebral body heights, al ignment and disc spaces are maintained. The pedicles are intact. There is no fracture or subluxation. There are 12 pairs of ri bs. The visualized lung springer are clear. There are surgical clips in the left upper quadrant. Lumbar spine: There are five weight bearing vertebral bodies. The lumbar vertebral body heights, disc spaces and alignment are maintained. There are no significant degenerative changes. The re is no fracture or subluxation. The pedicles are intact. The bilateral pars interarticulares are intact. The sacroi liac joints are symmetric. The visualized bowel gas pattern is within normal limits. Procedure Note Interface, [facility] Incoming Radiology Results - 09/21/2017 11:16 AM CDT AP, lateral and lateral swimmer's thoracic spine radiographs AP, oblique and lateral lumbar spine radiographs 09/21/2017 Indication: 27 years Female presents with back pain Comparison: None Findings: Thoracic spine: The thoracic vertebral body heights, alignment and disc spaces are maintained. The pedicles are intact. There is no fracture or subluxation. There are 12 pairs of ribs. The visualized lung springer are clear. There are surgical clips in the left upper quadrant. Lumbar spine: There are five weight bearing vertebral bodies. The lumbar vertebral body heights, disc spaces and alignment are maintained. There are no significant degenerative changes. There is no fracture or subluxation. The pedicles are intact. The bilateral pars interarticulares are intact. The sacroiliac joints are symmetric. The visualized bowel gas pattern is within normal limits. 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
--- OUTSIDE RECORDS SUMMARY | 2019-09-21 04:02 | XMS REPORT | Encounter Summary ---
Author Author [facility] [place] Organization [facility] Ti Erickson, Erica, [facility] Address Unknown Phone Unavailable Care Team Providers Care Dirt Bike Mechanic Name Role Phone Mayra Bermudez APRN PCP Unavailable Encounter Details Care Team Description Date Type Department Dyllan Crowley MD [address] [phone] 09/21/2017 [facility] Diagnostic Encounter Center [address] [phone] Social History Date Tobacco Use Types [...] Procedure Name Priority Date/Time Associated Diag nosis XR LUMBAR SPINE 4+ VW Routine 09/21/2017 Osteoart hritis of spine 10:41 AM CDT with radiculopathy, thoracic region documented in this encounter Results * XR LUMBAR SPINE 4+ VW (09/21/2017 [...] No acute osseous abnormality Performing Organization Address City/State/Zipcode Ph one Number INTERFACE SYSTEM INTERFACE SYSTEM Refer to clinic/hospital department documented in this encounter Visit Diagnoses Diagnosis Osteoarthritis of spine with radiculopa thy, thoracic region documented in this encounter
--- OUTSIDE RECORDS SUMMARY | 2019-09-21 04:02 | XMS REPORT | Clinical Summary ---
Author Author [facility] [place], [place], [facility] Organization [facility] [place], Erica, [facility] Address Unknown Phone Unavailable Care Team Providers Care Media Specialist Name Role Phone Mayra Bermudez APRN PCP Unavailable Allergies Comments Active Allergy Reactions Severity Noted Date "Throat starts to close" Poppyseed Oil Anaphylaxis High 06/11/2015 Sulfa (Sulfonamide Hives 05/29/2014 Antibiotics) Medications End Date Status Medication Sig Dispensed Refills Start Date Active amphetamine-dextroampheta 10 mg. 0 08/06 mine (ADDERALL XR) 10 mg 8 Extended Release 24 hour capsule Active cetirizine (ZyrTEC) 10 mg 10 mg. 0 tablet 7 Active clonazePAM (KlonoPIN) 1 0 mg tablet 8 Active fexofenadine (FROILAN) 180 mg. 0 01 180 mg tablet 8 Active FLUoxetine (PROzac) 20 mg 20 mg. 0 03/08 capsule 7 Active VALERIAN ROOT ORAL Take by 0 mouth. Active Problems Problem Noted Date Raynaud's disease without gangrene 09/21/2017 Social History Date Tobacco Use Types Packs/Day [...] Pressure 104 11/16/2017 10:08 AM CDT Pulse 36.6 C (97.8 F) 09/21/2017 9:21 AM CDT Temperature - - Respiratory Rate 98% 09/21/2017 9:21 AM CDT Oxygen Saturation - - Inhaled Oxygen Concentration 96.2 kg (212 lb) 11/16/2017 10:08 AM CDT Weight 154.9 cm (5' 1") 11/16/2017 10:08 AM CDT Height 40.06 11/16/2017 10:08 AM CDT Body Mass Index Plan of Treatment Health Maintenance Due Date Last Done Comments CERVICAL CANCER SCREENING 2011 INFLUENZA VACCINE 12/06/2018 PNEUMOCOCCAL VACCINE 0-64 Aged Out No longer el igible based YEARS on patient's age to complete this topic Results Not on filefrom Last 3 Months Insurance Type Payer Benefit Subscriber ID Effective Phone Address Plan / Dates Group Medicaid Managed Care [facility] [id number] 2017- COMMUNITY Present [facility] [id number] 1 Advance Directives For more information, please contact: [phone] Patient Receiving Dock Checker Explanation Type Date Recorded Advance Directive 09/21/2017 9:10 AM POA Advance Directive 09/21/2017 9:10 AM Living Will
--- OUTSIDE RECORDS SUMMARY | 2019-09-21 04:02 | XMS REPORT | Encounter Summary ---
Author [facility] [place], [facility] Organization [facility] Chichi Ericksonplin, [facility] Address Unknown Phone Unavailable Care Team Providers Care Assistant To The Vice President Name Role Phone Mayra Bermudez APRN PCP Unavailable Encounter Details Care Team Description Date Type Department Dyllan Crowley MD [address] [place] [phone] 09/21/2017 [facility] Diagnostic Encounter Center [facility] 100 [place] [address] Social History Date Tobacco Use Types [...] Name Priority Date/Time Associated Diag nosis XR THORACIC SPINE 3 VW Routine 09/21/2017 Osteoar thritis of spine 10:41 AM CDT with radiculopathy, thoracic region documented in this encounter Results * XR THORACIC SPINE 3 VW (09/21/2017 [...]
--- OUTSIDE RECORDS SUMMARY | 2019-09-21 04:03 | XMS REPORT | Encounter Summary ---
Author Author [facility] Organization [facility] Address Unknown Phone Unavailable Care Team Providers Care Rug Designer Name Role Phone Emelia Caldwell MD PCP Unavailable Reason for Visit * Reason Comments Medication Refill Encounter Details Care Team Description Date Type Department Mayra Bermudez APRN NO ADDRESS ON FILE Recurrent major depressive disorder, in partial remission 10/30/2017 Refill [facility] [address] [address] Social History Date Tobacco Use Types Packs/Day Years Used Quit: 07/09/2017 Current Some Day Smoker Cigarettes 0.25 5 Smokeless Tobacco: Never Used Drinks/Week oz/Week Comments Alcohol Use 0 Standard drinks or equivalent 0.0 drinks on weekends rar shelly ever Yes Sex Assigned at Date Recorded Not on file Industry Job Start Date Occupation Not on file Not on file Not on file Travel End Travel History Travel Start No recent travel history available. documented as of this encounter Plan of Treatment Not on filedocumented as of this encounter Visit Diagnoses Diagnosis Recurrent major depressive disorder, in partial remission documented in this encounter
--- OUTSIDE RECORDS SUMMARY | 2019-09-21 04:03 | XMS REPORT | Encounter Summary ---
Author Author [facility] Organization [facility] Address Unknown Phone Unavailable Care Team Providers Care Radiographer Angiogram Name Role Phone Emelia Caldwell MD PCP Unavailable Reason for Visit * Reason Comments Insect Bite Ear Pain ou Encounter Details Care Team Description Date Type Department Cordelia Sanabria, POLICE OFFICER NO ADDRESS ON FILE Acute JONY (middle ear effusion), bilater al (Primary Dx); Spider bite wound, accidental or unintentional, initial encounter; History of staph infection; Nasal congestion [facility]06[facility] [address] [id number] Social History Date Tobacco Use Types Packs/Day Years Used Quit: 07/09/2017 Former Smoker Cigarettes 0.25 5 Smokeless Tobacco: Never [...] Signs Reading Time Taken Comments Vital Sign 110/78 09/06/2017 11:02 AM CDT Blood Pressure 91 09/06/2017 11:02 AM CDT Pulse 35.7 C (96.2 F) 09/06/2017 11:02 AM CDT Temperature - - Respiratory Rate 99% 09/06/2017 11:02 AM CDT Oxygen Saturation - - Inhaled Oxygen Concentration 95.6 kg (210 lb 12.8 oz) 09/06/2017 11:02 AM CDT Weight 154.9 cm (5' 1") 09/06/2017 11:02 AM CDT Height 39.83 09/06/2017 11:02 AM CDT Body Mass Index documented in this encounter Progress Notes * Cordelia Sanabria, POLICE OFFICER - 09/06/2017 11:01 AM CDT HISTORY OF PRESENT ILLNESS Opal Trimble, a 27 y.o. female. Chief Complaint Patient presents with Insect Bite Ear Pain ou Presents w/ c/o having a bite to her back - she thinks a spider and this occurre d last night. Also c/o having bilateral ear pain - recently (08/16) treated w/ zithromax for RO M. She has "itchy ears" as well. Subjective HPI Past Medical History: Diagnosis Date ADD (attention deficit disorder with hyperactivity) Depression cymbalta Insomnia Lacrimal duct tumor Right side Obesity (BMI 30.0-39.9) 2008 Current Outpatient Prescriptions: clindamycin (CLEOCIN) 150 mg capsule, Take 1 Capsule (150 mg) by mouth 4 ti mes daily for 10 days., Disp: 40 Capsule, Rfl: 0 predniSONE (DELTASONE) 20 mg tablet, 3 tabs po daily x 3 days, 2 tabs po da flaco x 3 days, 1 tab po daily x 3 days. Take w/ food.., Disp: 18 Tablet, Rfl: 0 pseudoephedrine (SUDAFED) 30 mg tablet, Take 1 Tablet (30 mg) by mouth ever y 6 hours as needed for Congestion., Disp: 30 Tablet, Rfl: 0 fexofenadine (FROILAN) 180 mg tablet, Take 1 Tablet (180 mg) by mouth daily ., Disp: 30 Tablet, Rfl: 1 amphetamine-dextroamphetamine (ADDERALL XR) 10 mg Extended Release 24 hour capsule, Take 1 Capsule (10 mg) by mouth daily funeral driver. Max Daily Amount: 10 mg, Disp: 30 Capsule, Rfl: 0 clonazePAM (KlonoPIN) 1 mg tablet, TAKE ONE-HALF TABLET BY MOUTH TWICE TASHA Y NEEDED FOR ANXIETY, Disp: 60 Tablet, Rfl: 1 ondansetron (ZOFRAN ODT) 4 mg Tablet, Rapid Dissolve, Take 1 Tablet (4 mg) by mouth every 8 hours as needed for Nausea/Emesis Dissolve tablet on top of ton missy, then swallow with saliva.., Disp: 8 Tablet, Rfl: 0 cetirizine (ZyrTEC) 10 mg tablet, Take 1 Tablet (10 mg) by mouth daily., Di sp: 30 Tablet, Rfl: 2 FLUoxetine (PROzac) 20 mg capsule, Take 1 Capsule (20 mg) by mouth daily., Disp: 90 Capsule, Rfl: 1 REVIEW OF SYSTEMS Review of Systems Constitutional: Negative for chills and fever. HENT: Positive for ear pain, postnasal drip and rhinorrhea. Skin: Positive for rash. Objective PHYSICAL EXAM BP 110/78 (BP Location: Right arm, Patient Position (BP): Sitting, BP Cuff Size: Adult) | Pulse 91 | Temp (!) 96.2 F (35.7 C) (Temporal) | Ht 5' 1" (1.549 m) | Wt 95.6 kg (210 lb 12.8 oz) | LMP 07/16/2017 | SpO2 99% | BMI 39.83 k g/m Physical Exam Constitutional: She appears well-developed and well-nourished. No distress. HENT: Head: Normocephalic and atraumatic. Right Ear: External ear normal. A middle ear effusion is present. Left Ear: External ear normal. A middle ear effusion is present. Nose: Mucosal edema and rhinorrhea present. Mouth/Throat: Posterior oropharyngeal erythema present. No oropharyngeal exudate . Cardiovascular: Normal rate, regular rhythm and normal heart sounds. No murmur heard. Pulmonary/Chest: Effort normal and breath sounds normal. No respiratory distress . Lymphadenopathy: She has no cervical adenopathy. Skin: Skin is warm and dry. There is erythema. Round area of erythema, slightly raised, w/ surrounding inflammation to L side o f thoracic back - no definite puncture wound or open lesion. No drainage. Noth ing to culture. Lab Results Component Value Date/Time WBC 7.3 07/06/2017 09:44 AM HEMOGLOBIN 11.8 07/06/2017 09:44 AM HEMATOCRIT 35.0 07/06/2017 09:44 AM PLATELETS 279 07/06/2017 09:44 AM MCV 86.4 07/06/2017 09:44 AM ESR (SEDIMENTATION RATE) 42 (H) 07/06/2017 09:44 AM ALT 13 07/06/2017 09:44 AM AST 16 07/06/2017 09:44 AM SODIUM 142 07/06/2017 09:44 AM POTASSIUM 4.3 07/06/2017 09:44 AM CHLORIDE 103 07/06/2017 09:44 AM CO2 22 07/06/2017 09:44 AM CREATININE 0.80 07/06/2017 09:44 AM BUN 10 07/06/2017 09:44 AM GFR >60 07/06/2017 09:44 AM TSH 0.93 07/06/2017 09:44 AM GLUCOSE 96 07/06/2017 09:44 AM Assessment ASSESSMENT and PLAN: Encounter Diagnoses Name Primary? Acute JONY (middle ear effusion), bilateral Yes Spider bite wound, accidental or unintentional, initial encounter History of staph infection Nasal congestion Orders Placed This Encounter clindamycin (CLEOCIN) 150 mg capsule predniSONE (DELTASONE) 20 mg tablet pseudoephedrine (SUDAFED) 30 mg tablet fexofenadine (FROILAN) 180 mg tablet DISCUSSION: Tetanus immunization recommended Pt refuses tetanus immunization. Discussed need for close monitoring of bite to back. Recommend follow-up first part of next week, pt declines follow up appointment. Data Unavailable She voiced understanding and agreement with the treatment plan. She understands the importance of taking her medications and keeping all follow-up appointments. All questions were answered. Hobcx-Soiji-Ebswuno will be provided to patient upon check-out. documented in this encounter Plan of Treatment Not on filedocumented as of this encounter Visit Diagnoses Diagnosis Acute JONY (middle ear effusion), bilate ral - Primary Spider bite wound, accidental or uninte ntional, initial encounter History of staph infection Personal history of other infectious an d parasitic disease Nasal congestion Other diseases of nasal cavity and sinu ses documented in this encounter
--- OUTSIDE RECORDS SUMMARY | 2019-09-21 04:03 | XMS REPORT | Clinical Summary ---
Author Author [facility] Organization [facility] Address Unknown Phone Unavailable Care Team Providers Care Police Patrol Officer Name Role Phone Emelia Caldwell MD PCP Unavailable Allergies Comments Active Allergy Reactions Severity Noted Date Amoxicillin-Pot Hives 05/04/2017 Clavulanate "Throat starts to close" Poppyseed Oil Anaphylaxis High 06/11/2015 Sulfa (Sulfonamide Hives 02/12/2008 Antibiotics) Medications End Date Status Medication Sig Dispensed Refills Start Date Active FLUoxetine (PROzac) 20 mg Take 1 30 Capsule 3 capsule Capsule (20 8 mg) by mouth daily. Active amphetamine-dextroampheta Take 1 30 Capsule 0 mine (ADDERALL XR) 10 mg Capsule (10 8 Extended Release 24 hour mg) by mouth capsuleIndications: daily early Attention deficit morning. Max disorder (ADD) in adult Daily Amount: 10 mg Active fexofenadine (FROILAN) Take 1 Tablet 30 Tablet 3 0 180 mg tabletIndications: (180 mg) by 8 Acute JONY (middle ear mouth daily. effusion), bilateral Active clonazePAM (KlonoPIN) 1 TAKE 1/2 60 Tablet 1 mg tabletIndications: (ONE-HALF) 8 Anxiety state TABLET BY MOUTH TWICE DAILY NEEDED FOR ANXIETY Active Problems Problem Noted Date S/P bariatric surgery 09/13/2017 Drug-seeking behavior 09/13/2017 Tobacco use 10/27/2015 Pyelonephritis 06/11/2015 Raynaud phenomenon 10/30/2014 ADHD (attention deficit hyperactivity disorder) 03/08 Abdominal pain 11/03/2013 Hemoperitoneum 11/03/2013 Pelvic pain in female 10/21/2013 Amenorrhea 10/18/2013 Morbid obesity with body mass index of 40.0-49.9 Multiple food allergies 07/05/2012 History of recurrent miscarriages, 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 05/10/2012 Anovulation 11/29/2010 ADD (attention deficit disorder) 08/06/2010 Resolved Problems Problem Noted Date Resolved Date Corneal foreign body 01/04/2014 11/18/2014 Ectopic , tubal 11/03/2013 11/18/2014 Positive test 10/21/2013 11/18/2014 Ectopic 10/21/2013 11/18/2014 Well woman exam with routine gynecological exam 09/03/2012 11/18/2014 Vaginal odor 05/29/2012 11/18/2014 Postoperative follow-up 05/22/2012 11/18/2014 Encounter to discuss test results 03/02/201211/05 Incomplete 06/13/2011 05/22/2012 Well woman exam with routine gynecological exam 07/16/2010 08/31/2011 Pierced tongue infection 02/12/2008 06/10/2008 Acute sinusitis 02/12/2008 06/10/2008 Obesity (BMI 30.0-39.9) 07/05/2012 Immunizations Name Administration Dates Next Due Ceftriaxone Sodium 500 Mg 07/16/2010 Injection Dexamethasone Sodium 11/11/2010 Phosphate 4 Mg/mL Injection Lidocaine (PF) 10 Mg/mL 07/16/2010 (1%) Injection Medroxyprogesterone 02/03/2009, 12/24/2008, 10/2008, 08/19/2008 Contraceptive 150 mg/mL Injection Methotrexate Sodium 25 10/21/2013 Mg/mL Injection Methylprednisolone 11/11/2010 Acetate 80 Mg/mL Injection Family History Medical History Relation Name Comments Bipolar Disorder Father Diabetes Father Heart Disease Maternal Grandfather No Known Problems Mother Cancer Paternal Grandfather Other Paternal Bipolar and OCD Grandmother No Known Problems Sister Other Son Sam questions him h aving anxiety Breast Cancer Neg Hx Relation Name Status Comments Father Alive Maternal Grandfather GA (Age 62) Maternal Grandmother Alive Mother Alive Paternal Grandfather Lung cancer (Age 62) Paternal Grandmother Alive Sister Alive Son Sam Alive Social History Date Tobacco Use Types Packs/Day [...] Signs Reading Time Taken Comments Vital Sign 131/72 12/25/2017 8:30 AM CDT Blood Pressure 77 12/25/2017 8:30 AM CDT Pulse 36.9 C (98.5 F) 12/25/2017 8:30 AM CDT Temperature 20 09/25/2017 2:00 PM CDT Respiratory Rate 98% 12/25/2017 8:30 AM CDT Oxygen Saturation - - Inhaled Oxygen Concentration 100.7 kg (222 lb) 12/25/2017 8:30 AM CDT Weight 154.9 cm (5' 1") 12/25/2017 8:30 AM CDT Height 41.95 12/25/2017 8:30 AM CDT Body Mass Index Plan of Treatment Health Maintenance Due Date Last Done Comments PNEUMOCOCCAL VACCINE 0-64 1996 YEARS (1 of 1 - PPSV23) CERVICAL CANCER SCREENING 09/05/2015 09/04/2012, 07/19/2010 INFLUENZA VACCINE 12/06/2018 Results Not on filefrom Last 3 Months Insurance Type Payer Benefit Subscriber ID Effective Phone Address Plan / Dates Group Medicaid Managed Care [facility] [id number] 2017- [facility] [address] 1 Opal Trimble Personal/F Self 1990 [address] (Home) [place] [address] Opal Trimble Personal/F Self 1990 [address] (Home) [place], [place] [address] Advance Directives For more information, please contact: [phone] Patient Manufacturing Group Leader Explanation Type Date Recorded Advance Directive 09/25/2017 3:07 PM POA Advance Directive 09/25/2017 3:07 PM Living Will Date Inactivated Comments Code Status Date Activated 06/12/2015 4:40 PM Full Code 06/11/2015 2:59 PM 11/04/2013 5:10 PM Full Code 11/03/2013 2:07 PM 05/15/2012 4:19 PM Full Code 05/15/2012 9:16 AM
--- OUTSIDE RECORDS SUMMARY | 2019-09-21 04:03 | XMS REPORT | Encounter Summary ---
Author Author [facility] Organization [facility] Address Unknown Phone Unavailable Care Team Providers Care Workers Compensation Claims Assistant Name Role Phone Emelia Caldwell MD PCP Unavailable Reason for Visit * Reason Comments Medication Refill Encounter Details Care Team Description Date Type Department Cassie Acuna RN 11/30/2017 Refill [facility] [address] [phone] Social History Date Tobacco Use Types Packs/Day [...]
--- OUTSIDE RECORDS SUMMARY | 2019-09-21 04:03 | XMS REPORT | Encounter Summary ---
Author Author [facility] Organization [facility] Address Unknown Phone Unavailable Care Team Providers Care Aircraft Magneto Mechanic Name Role Phone Emelia Caldwell MD PCP Unavailable Reason for Visit * Reason Comments Medication Refill Medication Review States general check up for medication refill Encounter Details Care Team Description Date Type Department Mayra Bermudez APRN NO ADDRESS ON FILE Anxiety state; Attention deficit disorder (ADD) in adult; Acute JONY (middle ear effusion), bilateral 12/25/2017 [facility] [address] [phone] Social History Date Tobacco Use Types Packs/Day [...] (98.5 F) 12/25/2017 8:30 AM CDT Temperature - - Respiratory Rate 98% 12/25/2017 8:30 AM CDT Oxygen Saturation - - Inhaled Oxygen Concentration 100.7 kg (222 lb) 12/25/2017 8:30 AM CDT Weight 154.9 cm (5' 1") 12/25/2017 8:30 AM CDT Height 41.95 12/25/2017 8:30 AM CDT Body Mass Index documented in this encounter Progress Notes * Mayra Bermudez, BRAND SALES CONSULTANT - 12/25/2017 10:22 AM CDT HISTORY OF PRESENT ILLNESS Opal Trimble, a 27 y.o. female presents with a Chief Complaint of Medicat ion Refill and Medication Review (States general check up for medication refill) Subjective HPI Comes in for her general check up and needing her medications refilled. States that she was fired from her job as she had "multiple headaches" d/t her pseudotu mor of the orbit. Does complain of having bilateral ear pain and has been on ant ibiotics and steroids for this but is still having intermittent pain. This has been present for 2 months now. REVIEW OF SYSTEMS Review of Systems HENT: Positive for ear pain. Allergic/Immunologic: Positive for environmental allergies. Psychiatric/Behavioral: Positive for decreased concentration. Objective PHYSICAL EXAM BP 131/72 (BP Location: Left arm, Patient Position (BP): Sitting, BP Cuff Size: Adult) | Pulse 77 | Temp 98.5 F (36.9 C) (Temporal) | Ht 5' 1" (1.549 m) | Wt 100.7 kg (222 lb) | LMP 12/16/2017 (Exact Date) | SpO2 98% | Breastfeed ing? No | BMI 41.95 kg/m Physical Exam Constitutional: She is oriented to person, place, and time. She appears well-dev eloped and well-nourished. No distress. HENT: Head: Normocephalic. Fluid in the left middle ear. Right Is free of apparent fluid. Cardiovascular: Normal rate, regular rhythm and normal heart sounds. No murmur heard. Pulmonary/Chest: Effort normal and breath sounds normal. No respiratory distress . She has no wheezes. She has no rales. Neurological: She is alert and oriented to person, place, and time. Skin: Skin is warm and dry. She is not diaphoretic. Psychiatric: She has a normal mood and affect. Her behavior is normal. Judgment and thought content normal. Nursing note and vitals reviewed. Procedures Assessment ASSESSMENT and PLAN: ICD-10-CM ICD-9-CM 1. Anxiety state F41.1 300.00 clonazePAM (KlonoPIN) 1 mg tablet 2. Attention deficit disorder (ADD) in adult F98.8 314.00 amphetamine-dextroamph etamine (ADDERALL XR) 10 mg Extended Release 24 hour capsule 3. Acute JONY (middle ear effusion), bilateral H65.193 381.00 fexofenadine (ALLEG RA) 180 mg tablet Refilled her medications. Recommended that she continue with the saline flushe s. No antibiotics today. Pressure to keep the tubes open. If not improving, t hen will need to go see Dr. Riley for possible tube placement. Otherwise plan t o see her back for her reguarly checkups. documented in this encounter Plan of Treatment Not on filedocumented as of this encounter Visit Diagnoses Diagnosis Anxiety state Anxiety state, unspecified Attention deficit disorder (ADD) in bam lt Acute JONY (middle ear effusion), bilate ral documented in this encounter
--- OUTSIDE RECORDS SUMMARY | 2019-09-21 04:03 | XMS REPORT | Encounter Summary ---
Author Author [facility] Organization [facility] Address Unknown Phone Unavailable Care Team Providers Care Requirements Analyst Name Role Phone Emelia Caldwell MD PCP Unavailable Reason for Visit * Reason Comments Medication Refill Encounter Details Care Team Description Date Type Department Mayra Bermudez APRN NO ADDRESS ON FILE Anxiety state 12/09/2017 Refill [facility] [address] [phone] Social History Date Tobacco Use Types Packs/Day [...] Diagnoses Diagnosis Anxiety state Anxiety state, unspecified documented in this encounter
--- OUTSIDE RECORDS SUMMARY | 2019-09-21 04:03 | XMS REPORT | Encounter Summary ---
Author Author [facility] Organization [facility] Address Unknown Phone Unavailable Care Team Providers Care Ladle Repairman Name Role Phone Emelia Caldwell MD PCP Unavailable Reason for Visit * Reason Comments Referral Encounter Details Care Team Description Date Type Department Miriam Martinez Referral 08/30/2017 Telephone [facility] [address] [phone] Social History Date Tobacco Use [...] history available. documented as of this encounter Miscellaneous Notes * Telephone Encounter - Miriam Martinez - 08/30/2017 4:06 PM CDT Niki from [facility] has been unsuccessful in reaching Opal, she ke eps calling the number on file and a male answers stating she is at work and is not relaying the message. Niki calls our office in hopes we have a different number or a way to contact the patient. This sign writer hand will attempt to call Opal a nd then send out a letter. Niki gives her direct line of [phone]. documented in this encounter Plan of Treatment Not on filedocumented as of this encounter Visit Diagnoses Not on filedocumented in this encounter
--- OUTSIDE RECORDS SUMMARY | 2019-09-21 04:03 | XMS REPORT | Encounter Summary ---
Author Author [facility] Organization [facility] Address Unknown Phone Unavailable Care Team Providers Care Acid Blower Name Role Phone Emelia Caldwell MD PCP Unavailable Reason for Visit * Reason Comments Medication Refill Encounter Details Care Team Description Date Type Department Cassie Acuna RN Attention deficit disorder (ADD) in adul t 08/24/[address] [phone] Social History Date Tobacco Use Types Packs/Day [...] as of this encounter Visit Diagnoses Diagnosis Attention deficit disorder (ADD) in bam lt documented in this encounter
--- OUTSIDE RECORDS SUMMARY | 2019-09-21 04:03 | XMS REPORT | Encounter Summary ---
Author Author [facility] Organization [facility] Address Unknown Phone Unavailable Care Team Providers Care Hatchery Attendant Name Role Phone Emelia Caldwell MD PCP Unavailable Reason for Visit * Reason Comments Medication Refill Encounter Details Care Team Description Date Type Department Mayra Bermudez APRN NO ADDRESS ON FILE Anxiety state 05/03/2018 Refill [facility] [address] [phone] Social History Date Tobacco Use Types Packs/Day [...]
--- OUTSIDE RECORDS SUMMARY | 2019-09-21 04:03 | XMS REPORT | Encounter Summary ---
Author Author [facility] Organization [facility] Address Unknown Phone Unavailable Care Team Providers Care Clothing Designer Name Role Phone Emelia Caldwell MD PCP Unavailable Reason for Visit * Reason Comments Medication Refill Encounter Details Care Team Description Date Type Department Mayra Bermudez APRN NO ADDRESS ON FILE Anxiety state 04/27/2018 Refill [facility] [address] [phone] Social History Date Tobacco Use Types Packs/Day [...]
--- OUTSIDE RECORDS SUMMARY | 2019-09-21 04:03 | XMS REPORT | Clinical Summary ---
Author Author [facility] Organization [facility] Address Unknown Phone Unavailable Care Team Providers Care Agate Setter Name Role Phone Jeniffer Tamayo PCP Allergies Comments Active Allergy Reactions Severity [...] Plan / Dates Group COMMERCIAL-NONCONTRACTED MISC [id number] COMMERCIAL resent NONCONTRAC NOAM [address] Opal Trimble Personal/F Self 1990 [address] (Home) [place], [place] [address]
--- OUTSIDE RECORDS SUMMARY | 2019-09-21 04:03 | XMS REPORT | Encounter Summary ---
Author Author [facility] Organization [facility] Address Unknown Phone Unavailable Care Team Providers Care Job Lithographer Name Role Phone Jeniffer Tamayo PCP Reason for Visit * Reason Comments Headache HEADACHE DX WITH MASS IN [facility] OPTHOMOLOGIST LAKISHA JUST GIVES ME STEROIDS Encounter Details Care Team Description Date Type Department Una Fitzgerald Jr., MD [address] [place], [place] [id number] Headache, unspecified headache type (Areli reny Dx); Blurred vision, right eye 11/27/2014 Emergency [facility] [address] [place], [place] [phone] Social History Date Tobacco Use Types Packs/Day [...] this encounter Discharge Instructions * Instructions* Una Ftizgerald Jr., MD - 11/27/2014 Headache, Unspecified Headaches [...] face You have difficulty talking or seeing [phone] [employer]. [address] [place] [address] 7. All rights reserved. This information is not intended as a substitute for pro fessional medical care. Always follow your healthcare professional's instruction s. Blurred Vision Blurred vision is the loss of sharpness of vision and the inability to see small details. Any changes in your vision whether sudden or gradual should be checked out by an revenue cycle specialist. There are many causes for vision [...] you see better. Follow Up with an revenue cycle specialist or as advised by our staff. [...] also prescribe glasses and contact lenses. An offset proof press operator can provide a basic screening eye exam for much less cost than an measurement superintendent. The offset proof press operator can tell you if your condition needs the servi fabricio of an measurement superintendent. Get Prompt Medical Attention if any of the following occur: Sudden change in your vision Eye pain, redness, or discharge from your eyelid Blurriness Dark spots in your field of vision Halos around lights Floaters (dots or strings moving across your field of vision) Sudden flash of light inside your eye Dimness of vision Partial or complete loss of vision [id number] [employer]. [address] [place] [address], [place] [address] 7. All rights reserved. This information is [...] LAKISHA JUST GIVES ME STEROIDS HPI Opal Leblanc is a 24-year-old female who presents with complaints of chronic he adache, and chronic blurred vision on the right. The patient states that since May of this year, she's had persistent right-sided blurred vision as well as right-sided headaches. The patient has seen multiple specialists including oph thalmology and neurology at [facility] regarding an MRI scan that she [...] dry. Vitals reviewed. Visual acuities: Right-20/20, Left-20/13, Both-20/25 Results for orders placed or performed during [...] plan for discharge and follow-up with [facility]. ED Clinical Impression SNOMED CT(R) 1. Headache, unspecified headache type HEADACHE 2. Blurred vision, right eye BLURRING OF VISUAL IMAGE Una Fitzgerald Jr., MD, MD 11/27/142130 * Saúl Barroso - 11/27/2014 2:32 PM CDT Bed: [facility] Expected date: Expected time: Means of arrival: Comments: triage documented in this encounter Plan of Treatment Not on filedocumented as of this encounter Procedures Comments Procedure Name Priority Date/Time Associated Diag nosis LAB SUMMARY 11/30/2014 3:[address] ORBIT IAC POSTERIOR STAT 11/27/2014 FOSSA SELLA W CONTRAST 7:19 PM CDT COMPREHENSIVE METABOLIC STAT 11/27/2014 PANEL 4:58 PM CDT CBC AND DIFF (MANUAL DIFF STAT 11/27/2014 IF NECESSARY) 4:58 PM CDT documented in this encounter Results * LAB SUMMARY (11/30/2014 3:30 AM CDT) Narrative Performed At This result has an attachment that is n ot available. Ordered by an unspecified provider. * CT Orbit IAC Posterior Fossa Sella w contrast (11/27/2014 7:19 PM CDT) Specimen Impressions Performed At IMPRESSION: [facility] Orbits are symmetric and anatomic in ap pearance. No mass per CT with contrast. ATTESTATION STATEMENT: The Staff Radiologist has personally re viewed the images and dictated, reviewed, or edited the final report. READING SITE: [facility] Narrative Performed At Patient: OPAL LEBLANC Phone#: [facility] Rec#: [id number] Sex#: F # [id number] Tejal#: [id number] Location: [facility]- Procedure Requested: [id number] CT ORBIT IAC POSTERIOR FOSSA SELLA W CONTRAST Reason for Exam: hx of possible lacri mal gland mass, R sided eye pressure and blurred vision Exam Ordered: 11/27/2014 16 43 Exam Date/Time: 11/27/2014 191 9 Check-in Date/Time: 11/27/[address] ORBIT IAC POSTERIOR FOSSA SELLA W CO NTRAST Nov 27, 2014 07:20:12 PM Indication: Hx of possible lacrimal gla nd mass, R sided eye pressure and blurred vision. Comparison: None. Technique: CT was performed of the orbi ts after the uneventful administration of 85 cc of Omnipaque 35 0. Coronal and sagittal reconstructions were performed. Findings: The orbits are symmetric in appearance. The lacrimal glands are symmetric. The globes are intact. No pr eseptal or orbital swelling. The visualized maxillofacial osseous st ructures are intact. The paranasal sinuses are clear. No nasal b one fracture. Mild rightward nasal septal deviation. The visualized airway is patent. Scatte red small cervical lymph nodes are not enlarged per CT size criteria. The visualized vascular structures are patent The visualized brain parenchyma is inta ct. The skull base is intact. Procedure Note Interface, Rad Results In - 11/28/2014 12:54 PM CDT Patient: OPAL LEBLANC Phone#: Med Rec#: [id number] Sex#: F # [id number] Tejal#: [id number] Location: [facility]- Procedure Requested: [id number] CT ORBIT IAC POSTERIOR FOSSA SELLA W [...] or edited the final report. READING SITE: [facility] Organization Address City/State/Zipcohi Ph one Number [place] * CBC and Diff (manual diff if necessary) (11/27/2014 4:58 PM CDT) WBC 9.30 4.00 - 11.00 TH/uL [facility] RBC 4.06 4.00 - 5.00 MIL/uL [facility] Hemoglobin 11.5 (L) 12.0 - 15.0 g/dL [facility] Hematocrit 33 (L) 36 - 45 % [facility] MCV 81 80 - 99 fL [facility] MCH 28 27 - 34 pg [facility] MCHC 35 32 - 36 % [facility] RDW 15.2 (H) 9.0 - 14.5 % [facility] Platelet Count 215 140 - 400 TH/uL [facility] MPV 10.0 9.4 - 12.3 fL [facility] Nucleated RBCs 0 0 - 0 /100 [facility] % Neutrophils 51 45 - 78 % [facility] %Lymphocytes 40 15 - 47 % [facility] %Monocytes 8 0 - 12 % [facility] %Eosinophils 1 0 - 7 % [facility] %Basophils 0 0 - 2 % [facility] % Imm Grans 0 0 - 1 % [facility] # Granulocytes 4.72 1.70 - 6.80 TH/uL [facility] # Lymphocytes 3.70 (H) 1.00 - 3.30 TH/uL [facility] # Monocytes 0.73 0.20 - 0.90 TH/uL [facility] # Eosinophils 0.12 0.00 - 0.40 TH/uL [facility] # Basophils 0.03 0.00 - 0.10 TH/uL [facility] Specimen Blood Performing Organization Address City/State/Zipcode Ph one Number [address] [address] LABORATORIES * Comprehensive Metabolic Panel (11/27/2014 4:58 PM CDT) Sodium 135 133 - 147 MEQ/L [facility] Potassium 3.9 3.5 - 5.3 MEQ/L [facility] Chloride 103 96 - 112 MEQ/L [facility] Carbon Dioxide 26 20 - 32 MEQ/L [facility] Anion Gap 6 5 - 17 [facility] Calcium 9.3 8.4 - 10.5 mg/dL [facility] Glucose 88 70 - 100 mg/dL [facility] Protein Total 7.2 6.0 - 8.2 g/dL [facility] Serum [facility] Albumin 4.1 3.5 - 5.0 g/dL [facility] Alkaline 44 42 - 140 IU/L [facility] Phosphatase [facility] Alanine 26 13 - 69 IU/L [facility] Aminotransferas [facility] e LABORATORIES Aspartate 18 15 - 46 IU/L [facility] Aminotransferas [facility] e LABORATORIES Bilirubin Total 0.3 0.2 - 1.3 mg/dL [facility] Blood Urea 13 7 - 26 mg/dL [facility] LABORATORIES Creatinine 0.7 0.4 - 1.1 mg/dL [facility] eGFR Female AA 123 60 - 200 [facility] Comment: REGIONAL Chronic Kidney Disease less LABORATORIES than 60 mL/min/1.73 sq.m Kidney failure less than 15 mL/min/1.73 sq.m eGFR Female 103 60 - 200 [facility] Non-AA Comment: REGIONAL Chronic Kidney Disease less LABORATORIES than 60 mL/min/1.73 sq.m Kidney failure less than 15 mL/min/1.73 sq.m Specimen Blood Performing Organization Address City/State/Zipcode Ph one Number [facility] [address] [place] [address] LABORATORIES documented in this encounter Visit Diagnoses Diagnosis Headache, unspecified headache type Blurred vision, right eye Other specified visual disturbances documented in this encounter Administered Medications Action Date Dose Rate Site Medication Order MAR Action 11/27/2014 5:03 PM CDT 25 mg diphenhydrAMINE (BENADRYL) injection 25 Given mg 25 mg, Intravenous, Once, Ingrid 11/27/14 a t 1645, For 1 dose 11/27/2014 5:06 PM CDT 50 mcg fentaNYL (SUBLIMAZE) 50 mcg/mL injection Given 50 mcg 50 mcg, Intravenous, Once, Ingrid 11/27/14 at 1645, For 1 dose 11/27/2014 7:19 PM CDT 85 mL iohexol (OMNIPAQUE) 350 mg iodine/mL Given injection 85 mL 85 mL, Intravenous, Once in imaging, contrast, Starting Ingrid 11/27/14 at 1919, For 1 dose 11/27/2014 5:04 PM CDT 10 mg metoclopramide (REGLAN) injection 10 mg Given 10 mg, Intravenous, Once, Ingrid 11/27/14 a t 1645, For 1 dose 11/27/2014 5:03 PM CDT 1,000 mL 2000 mL/hr sodium chloride 0.9% (NS) IV Bolus New Bag 1,000 mL, Intravenous, Administer over 30 Minutes, Once, Ingrid 11/27/14 at 1645, For 1 dose documented in this encounter"
--- OUTSIDE RECORDS SUMMARY | 2019-09-21 04:03 | XMS REPORT | Encounter Summary ---
Author Author [facility] Organization [facility] Address Unknown Phone Unavailable Care Team Providers Care Imaging Analyst Name Role Phone Emelia Caldwell MD PCP Unavailable Encounter Details Care Team Description Date Type Department [facility], External Provider 11/17/2017 Abstract Danica Stearns Julianna sheppard [address] [phone] Social History Date Tobacco Use Types Packs/Day [...]
--- OUTSIDE RECORDS SUMMARY | 2019-09-21 04:03 | XMS REPORT | Encounter Summary ---
Author Author [facility] Address Unknown Phone Unavailable Care Team Providers Care Quality Assurance Auditor Name Role Phone Emelia Caldwell MD PCP Unavailable Reason for Visit * Reason Comments general weakness hx of anemia, blood drawn x 4 days ago and started period. patient states she has fatigue and weakness. * Auth/Cert Referred By Contact Referred To Contact Status Reason Specialty Diagnoses / Procedures [facility] Emergency [address] [place] [address] Emergency Medicine Encounter Details Care Team Description Date Type Department Richard Martell MD NO ADDRESS ON FILE Weakness (Primary Dx) 09/25/[address] [facility] Emergency Department [address] [phone] Social History Date Tobacco Use Types Packs/Day [...] Signs Reading Time Taken Comments Vital Sign 115/65 09/25/2017 2:07 PM CDT Blood Pressure - - Pulse 36.7 C (98 F) 09/25/2017 2:00 PM CDT Temperature 20 09/25/2017 2:00 PM CDT Respiratory Rate 98% 09/25/2017 2:00 PM CDT Oxygen Saturation - - Inhaled Oxygen Concentration 86.2 kg (190 lb) 09/25/2017 2:00 PM CDT Weight 154.9 cm (5' 1") 09/25/2017 2:00 PM CDT Height 35.9 09/25/2017 2:00 PM CDT Body Mass Index documented in this encounter Discharge Instructions * Instructions* Boris Lazaro RN - 09/25/2017 Follow up with PCP as needed. Normal hemoglobin documented in this encounter Medications at Time of Discharge Start Date End Date Medication Sig Dispensed Refills 09/06/2017 12/25/2017 pseudoephedrine (SUDAFED) Take 1 Tablet 30 Tablet 0 30 mg tabletIndications: (30 mg) by Acute JONY (middle ear mouth every 6 effusion), bilateral hours as needed for Congestion. 09/06/2017 12/25/2017 fexofenadine (FROILAN) Take 1 Tablet 30 Tablet 1 180 mg tabletIndications: (180 mg) by Acute JONY (middle ear mouth daily. effusion), bilateral 08/24/2017 12/25/2017 amphetamine-dextroampheta Take 1 30 Capsule 0 mine (ADDERALL XR) 10 mg Capsule (10 Extended Release 24 hour mg) by mouth capsuleIndications: daily early Attention deficit morning. 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 partial remission documented as of this encounter ED Notes * Richard Martell MD - 09/25/2017 1:52 PM CDT HISTORY OF PRESENT ILLNESS Opal Trimble, a 27 y.o. female presents to the ED with a Chief Complaint of general weakness Subjective Pt presents w/ cc of generlized weakeness wanting to be checked for anemia. Sta kayla usually has heaving menses. She was at her rheumotologist appt on Monday an d had about 10 vials of blood drawn and immediately felt weak. She also started her period on Monday which is described as heavy for 5 days lasting about 7 d ays. Denies any fever, chills, cp, sob, abd pain, visual changes, lightheadedn ess, n/v/d. Reports NL oral intake. REVIEW OF SYSTEMS Review of Systems Constitutional: Negative for activity change, appetite change, chills, fatigue a nd fever. HENT: Negative for congestion, ear discharge, ear pain, postnasal drip, rhinorrh ea, sinus pressure, sneezing, sore throat and trouble swallowing. Respiratory: Negative for cough, shortness of breath and wheezing. Cardiovascular: Negative for chest pain. Gastrointestinal: Negative for abdominal pain, anal bleeding, blood in stool, co nstipation, diarrhea, nausea and vomiting. Genitourinary: Negative for difficulty urinating, dysuria, flank pain, frequency , hematuria, vaginal bleeding and vaginal discharge. Musculoskeletal: Negative for arthralgias. Skin: Negative for color change and rash. Neurological: Positive for weakness. Negative for dizziness, light-headedness an d headaches. PAST MEDICAL HISTORY REVIEWED MEDICAL: Patient has a past medical history of ADD (attention deficit disorder with hype ractivity); Depression; Insomnia; Lacrimal duct tumor; and Obesity (BMI 30.0-39. 9) (2008). SURGICAL: Patient has a past surgical history that includes hx section (12/2005); hx gastric bypass (01/11/12); pr hysteroscopy,dx,sep proc (05/15/2012); pr dilati on/curettage,diagnostic (05/15/2012); and pr exploratory of abdomen (11/03/2013). FAMILY: Patient's family history includes Bipolar Disorder in her father; Cancer in her paternal grandfather; Diabetes in her father; Heart Disease in her maternal gran dfather; No Known Problems in her mother and sister; Other in her paternal grand mother and son. SOCIAL: reports that she has been smoking Cigarettes. She has a 1.25 pack-year smoking history. She has never used smokeless tobacco. She reports that she drinks alco hol. She reports that she uses drugs, including Marijuana. She reports that she currently engages in sexual activity and has had male partners. She reports usin g the following method of control/protection: None. No history on file. Social History Other Topics Concern Not on file PROBLEM LIST: Patient has ADD (attention deficit disorder); Anovulation; History of recurrent miscarriages, not currently ; Morbid obesity with body mass index of 40. 0-49.9; Multiple food allergies; Amenorrhea; Pelvic pain in female; Abdominal pa in; Hemoperitoneum; ADHD (attention deficit hyperactivity disorder); Raynaud phe nomenon; Pyelonephritis; Tobacco use; S/P bariatric surgery; and Drug-seeking be havior on her problem list. ALLERGIES Poppyseed oil; Augmentin [amoxicillin-pot clavulanate]; and Sulfa (sulfonamide a ntibiotics) HOME MEDICATIONS Patient's Home Medications Current Home Medications AMPHETAMINE-DEXTROAMPHETAMINE (ADDERALL XR) 10 MG EXTENDED RELEASE 24 HOUR CAPS ULE CETIRIZINE (ZYRTEC) 10 MG TABLET CLONAZEPAM (KLONOPIN) 1 MG TABLET FEXOFENADINE (FROILAN) 180 MG TABLET FLUOXETINE (PROZAC) 20 MG CAPSULE ONDANSETRON (ZOFRAN ODT) 4 MG TABLET, RAPID DISSOLVE PREDNISONE (DELTASONE) 20 MG TABLET PSEUDOEPHEDRINE (SUDAFED) 30 MG TABLET Medications Modified during this Encounter Medications Discontinued during this Encounter Objective PHYSICAL EXAM INITIAL VS BP: 131/64 (09/25/17 1400), Heart Rate: 81 bpm (09/25/17 1400), Resp: 20 ( 1400), Temp: 98 F (36.7 C) (09/25/17 1400), Temp src: Temporal (09/25/17 1400), SpO2: 98 % (09/25/17 1400), Height: 5' 1" (154.9 cm) (09/25/17 1400), Dante ght: 86.2 kg (190 lb) (09/25/17 1400), BMI (Calculated): 35.92 (09/25/17 1400) P atient's last menstrual period was 09/23/2017 (exact date). Physical Exam Constitutional: She is oriented to person, place, and time. She appears well-dev eloped and well-nourished. No distress. Cardiovascular: Normal rate, regular rhythm and normal heart sounds. No murmur heard. Pulmonary/Chest: Effort normal and breath sounds normal. No respiratory distress . She has no wheezes. Abdominal: Soft. Bowel sounds are normal. She exhibits no distension and no mass . There is no tenderness. There is no rebound and no guarding. Musculoskeletal: Normal range of motion. She exhibits no edema. Neurological: She is alert and oriented to person, place, and time. No cranial n erve deficit. Skin: No rash noted. No erythema. Psychiatric: She has a normal mood and affect. Her behavior is normal. Judgment and thought content normal. Nursing note and vitals reviewed. DIAGNOSTICS LAB: CBC WITH DIFFERENTIAL - Abnormal Result Value WBC 7.0 RBC 3.79 HEMOGLOBIN 11.2 HEMATOCRIT 33.5 (*) MCV 88.4 MCH 29.6 MCHC 33.4 RDW 14.0 RDW-STDEV 45.3 PLATELETS 239 MPV 9.8 NEUTROPHILS 62 LYMPHOCYTES 31 MONOCYTES 6 EOSINOPHILS 1 BASOPHILS 0 IMMATURE GRANULOCYTES 0 NEUTROPHIL ABSOLUTE 4.29 LYMPHOCYTE ABSOLUTE 2.16 MONOCYTE ABSOLUTE 0.39 EOSINOPHIL ABSOLUTE 0.09 BASOPHILS ABSOLUTE 0.03 IMMATURE GRANULOCYTES ABSOLUTE 0.02 RADIOLOGY: No orders to display No orders to display EKG: PROCEDURES Procedures MEDICAL DECISION MAKING AND PLAN OF CARE MDM Clinical Course: Pt declined any workup except checking hemoglobin NL at 11.2 Discussed the result - offered further workup - declined again Discharged w/ precautions - f/u w/ PCP tomorrow . New Prescriptions for this Encounter LAST VS BP: 115/65 (09/25/17 1407), Heart Rate: 100 bpm (09/25/17 1407), Resp: 20 (09/25 1400), Temp: 98 F (36.7 C) (09/25/17 1400), Temp src: Temporal (09/25/17 1400), SpO2: 98 % (09/25/17 1400) CLINICAL IMPRESSION Final diagnoses: [R53.1] Weakness (Primary) DISPOSITION, EDUCATION AND MEDICATION RECONCILIATION Medications reconciled. See after visit summary for patient education on discha rged patients. ED Disposition ED Disposition Condition User Date/Time Comment Discharge Stable Richard Martell MD Mon September 25, 2017 3:07 PM ATTESTATION STATEMENTS documented in this encounter Plan of Treatment Not on filedocumented as of this encounter Procedures Comments Procedure Name Priority Date/Time Associated Diag nosis CBC WITH DIFFERENTIAL Stat 09/25/2017 2:52 PM CDT documented in this encounter Results * CBC WITH DIFFERENTIAL (09/25/2017 2:52 PM CDT) WBC 7.0 3.6 - 11.1 K/uL [facility] RBC 3.79 3.78 - 5.21 M/uL [facility] HEMOGLOBIN 11.2 11.1 - 15.5 g/dL [facility] HEMATOCRIT 33.5 (L) 34.3 - 46.7 % [facility] MCV 88.4 82.7 - 97.1 fL [facility] MCH 29.6 27.1 - 32.3 pg [facility] MCHC 33.4 31.3 - 34.9 g/dL [facility] RDW 14.0 11.5 - 14.7 % [facility] RDW-STDEV 45.3 37.2 - 47.6 fL [facility] PLATELETS 239 136 - 352 K/uL [facility] MPV 9.8 8.6 - 11.8 fL [facility] NEUTROPHILS 62 44 - 74 % [facility] LYMPHOCYTES 31 16 - 44 % [facility] MONOCYTES 6 4 - 11 % [facility] EOSINOPHILS 1 0 - 6 % [facility] BASOPHILS 0 0 - 1 % [facility] IMMATURE 0 0 - 1 % [facility] NEUTROPHIL 4.29 1.54 - 7.18 K/uL [facility] LYMPHOCYTE 2.16 0.69 - 3.61 K/uL [facility] MONOCYTE 0.39 0.19 - 0.95 K/uL [facility] EOSINOPHIL 0.09 0.00 - 0.44 K/uL [facility] BASOPHILS 0.03 0.00 - 0.10 K/uL [facility] IMMATURE 0.02 0.00 - 0.09 K/uL [facility] Specimen Blood Performing Organization Address City/State/Zipcode Ph one Number [facility] CLIA# [id number] TESHA GORDON [address] documented in this encounter Visit Diagnoses Diagnosis Weakness - Primary Other malaise and fatigue documented in this encounter
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
--- OUTSIDE RECORDS SUMMARY | 2019-09-21 04:03 | XMS REPORT | Encounter Summary ---
Author Author [facility] Organization [facility] Address Unknown Phone Unavailable Care Team Providers Care Courtesy Car Driver Name Role Phone Emelia Caldwell MD PCP Unavailable Reason for Visit * Reason Comments Medication Refill Encounter Details Care Team Description Date Type Department Cordelia Sanabria, HAND PROFILER NO ADDRESS ON FILE Acute JONY (middle ear effusion), bilater al 10/27/[address] [phone] Social History Date Tobacco Use Types Packs/Day [...]
--- OUTSIDE RECORDS SUMMARY | 2019-09-21 04:03 | XMS REPORT | Encounter Summary ---
Author Author [facility] Organization [facility] Address Unknown Phone Unavailable Care Team Providers Care Production Engineer Name Role Phone Emelia Caldwell MD PCP Unavailable Reason for Visit * Reason Comments Medication Refill Encounter Details Care Team Description Date Type Department Cassie Acuna RN 05/04/2018 Refill [facility] [address] [phone] Social History Date Tobacco Use Types Packs/Day [...]
--- OUTSIDE RECORDS SUMMARY | 2019-09-21 04:04 | XMS REPORT | Encounter Summary ---
Author Author [facility] Organization [facility] Address Unknown Phone Unavailable Care Team Providers Care Machinery Dismantler Name Role Phone Emelia Caldwell MD PCP Unavailable Reason for Referral * Consult, Test & Treat (Routine) Referred By Contact Referred To Contact Status Reason Specialty Diagnoses / Procedures Mayra Bermudez APRN NO ADDRESS ON FILE Closed Rheumatology Diagnoses Intermittent fever Myalgia Raynaud's phenomenon without gangrene * Consult, Test & Treat (Routine) Referred By Contact Referred To Contact Status Reason Specialty Diagnoses / Procedures Mayra Bermudez APRN NO ADDRESS ON FILE Closed Endocrinology Diagnoses Adrenal tumor Reason for Visit * Reason Comments Follow Up Results Encounter Details Care Team Description Date Type Department Mayra Bermudez APRN NO ADDRESS ON FILE Adrenal tumor (Primary Dx); Nipple discharge; Intermittent fever; Myalgia; Raynaud's phenomenon without gangrene 07/10/2017 Office Visit [address] [phone] Social History Date Tobacco Use Types Packs/Day Years Used Current Some Day Smoker Cigarettes 0.25 5 [...] Signs Reading Time Taken Comments Vital Sign 126/74 07/10/2017 3:10 PM TATTOO DESIGNER Blood Pressure - - Pulse 37 C (98.6 F) 07/10/2017 3:10 PM TATTOO DESIGNER Temperature - - Respiratory Rate - - Oxygen Saturation - - Inhaled Oxygen Concentration 95.3 kg (210 lb) 07/10/2017 3:10 PM TATTOO DESIGNER Weight 157.5 cm (5' 2") 07/10/2017 3:10 PM TATTOO DESIGNER Height 38.41 07/10/2017 3:10 PM TATTOO DESIGNER Body Mass Index documented in this encounter Progress Notes * Mayra Bermudez APRN - 07/10/2017 3:31 PM TATTOO DESIGNER HISTORY OF PRESENT ILLNESS Opal Trimble, a 27 y.o. female presents with a Chief Complaint of Follow Up (Results ) Subjective HPI Comes in for follow-up of reviewing her records from prior exams. Hx of adrenal tumor. Lost insurance and so did not do follow-up. She has insurance now and is having intermittent fevers, joint pain, myalgias, no swelling of the joints, raynauds, and nipple discharge. REVIEW OF SYSTEMS Review of Systems Objective PHYSICAL EXAM BP 126/74 (BP Location: Left arm, Patient Position (BP): Sitting, BP Cuff Size: Adult) | Temp 98.6 F (37 C) (Temporal) | Ht 5' 2" (1.575 m) | Wt 95.3 kg (210 lb) | LMP 06/21/2017 | ? No | BMI 38.41 kg/m Physical Exam No PE today Assessment ASSESSMENT and PLAN: ICD-10-CM ICD-9-CM 1. Adrenal tumor D49.7 239.7 AMB REFERRAL TO ENDOCRINOLOGY 2. Nipple discharge N64.52 611.79 PROLACTIN 3. Intermittent fever R50.9 780.60 AMB REFERRAL TO RHEUMATOLOGY 4. Myalgia M79.1 729.1 AMB REFERRAL TO RHEUMATOLOGY 5. Raynaud's phenomenon without gangrene I73.00 443.0 AMB REFERRAL TO RHEUMATOLO GY referral to endocrinology and rheumatology. Prolactin level She will take with her to these appointment All lab tests, and imaging from the breast US. OO DESIGNER documented in this encounter Plan of Treatment Order Schedule Name Type Priority Associated Diag noses Ordered: 07/10/2017 AMB REFERRAL TO Outpatient Routine Adrenal tumor ENDOCRINOLOGY Referral Ordered: 07/10/2017 AMB REFERRAL TO Outpatient Routine Intermittent f ever RHEUMATOLOGY Referral Myalgia Raynaud's phenomenon without gangrene documented as of this encounter Procedures Comments Procedure Name Priority Date/Time Associated Diag nosis PROLACTIN Routine 07/10/2017 Nipple discharg e 3:43 PM TATTOO DESIGNER documented in this encounter Results * PROLACTIN (07/10/2017 3:43 PM TATTOO DESIGNER) PROLACTIN 21.2 ng/mL CECIL Comment: LABORATORY Prolactin Reference Range [facility] Women (not )4.79-23.3 ng/mL Men4.04-15.2 ng/mL Specimen Blood Narrative Performed At REFERENCE LAB ACC #: [id number] [facility] Performing Organization Address City/State/Zipcode Ph one Number [facility] CLIA # [id number] [place] [address] [facility] [address] [facility] CLIA # [id number] [place] [address] [facility] [address] [facility] [place] documented in this encounter Visit Diagnoses Diagnosis Adrenal tumor - Primary Neoplasm of unspecified nature of endoc rine glands and other parts of nervous system Nipple discharge Other sign and symptom in breast Intermittent fever Fever, unspecified Myalgia Mylagia and myositis, unspecified Raynaud's phenomenon without gangrene documented in this encounter
--- OUTSIDE RECORDS SUMMARY | 2019-09-21 04:04 | XMS REPORT | Encounter Summary ---
Author Author [facility] Organization [facility] Address Unknown Phone Unavailable Care Team Providers Care Blankbook Forwarder Name Role Phone Emelia Caldwell MD PCP Unavailable Reason for Visit * Reason Comments Nausea Ongoing for several days. Has had no bm for at least 5 days. Reports that her sister who is a nurse put her on a "miralax liquid diet" but that she isn't eating so she isn't passing any s tool. reports has had a 10# wt loss in the past week. Asking to be admitte d. * Auth/Cert Referred By Contact Referred To Contact Status Reason Specialty Diagnoses / Procedures [facility] Emergency [address] [place] [address] Emergency Medicine Encounter Details Care Team Description Date Type Department Richard Martell MD NO ADDRESS ON FILE Nausea (Primary Dx) 06/28/[address] [facility] Emergency Department [address] [address] Social History Date Tobacco Use [...] Signs Reading Time Taken Comments Vital Sign 135/65 06/28/2017 5:23 PM KILN BURNER HELPER Blood Pressure - - Pulse 37.1 C (98.8 F) 06/28/2017 5:23 PM KILN BURNER HELPER Temperature 16 06/28/2017 5:23 PM KILN BURNER HELPER Respiratory Rate 98% 06/28/2017 5:23 PM KILN BURNER HELPER Oxygen Saturation - - Inhaled Oxygen Concentration 93.4 kg (206 lb) 06/28/2017 5:23 PM KILN BURNER HELPER Weight 157.5 cm (5' 2") 06/28/2017 5:23 PM KILN BURNER HELPER Height 37.68 06/28/2017 5:23 PM KILN BURNER HELPER Body Mass Index documented in this encounter Discharge Instructions * Instructions* Richard Martell MD - 06/28/2017 Please . Consider simethicone for gas relief . Take your suppository if unable to take zofran . Follow up with your PCP on Monday * Attachments The following attachments cannot be sent through Care Everywhere.* Nausea and Vomiting ([place]) documented in this encounter Medications at Time of Discharge Start Date End Date Medication Sig Dispensed Refills 06/23/2017 07/06/2017 ondansetron (ZOFRAN) 4 mg Take 1 Tablet 6 Tablet 0 Tablet (4 mg) by mouth every 8 hours as needed for Nausea. 06/20/2017 06/30/2017 mupirocin calcium Apply to 15 Gram 1 (BACTROBAN) 2 % Cream affected area 2 times daily for 10 days. 06/20/2017 07/24/2017 amphetamine-dextroampheta Take 1 30 Capsule 0 mine (ADDERALL XR) 10 mg Capsule (10 Extended Release 24 hour mg) by mouth capsuleIndications: daily early Attention deficit morning. Max disorder (ADD) in adult Daily Amount: 10 mg 04/13/2017 08/12/2017 clonazePAM (KlonoPIN) 1 Take 0.5 60 Tablet 1 mg tabletIndications: Tablets (0.5 Anxiety state mg) by mouth 2 times daily as needed for Anxiety. 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 partial remission documented as of this encounter ED Notes * Guillermina Ambrose RN - 06/28/2017 5:51 PM KILN BURNER HELPER Pt again asking to be admitted due to "I can't afford to miss work." Also askin g for something besides zofran for nausea. Dr. Martell aware of pt's request. BURNER HELPER * Guillermina Ambrose RN - 06/28/2017 5:38 PM KILN BURNER HELPER Pt returned tonight to the ER with c/o still having no bm since Monday even ough she took the mag citrate that was prescribed. Also reports that she is tir ed & can't sleep, even though states that she uses marjiuana, to help her sleep. Also reports that she has had a 10# wt loss in the past week, current wt today is 206#. Pt tearful and asking to be admitted so she can get some rest. BURNER HELPER * Richard Martell MD - 06/28/2017 4:58 PM KILN BURNER HELPER HISTORY OF PRESENT ILLNESS Opal Trimble, a 27 y.o. female presents to the ED with a Chief Complaint of Nausea Subjective Pt presents w/ cc of nausea, abd pain and continuation of constipation. Pt was seen on 06/23 and was instructed to take mag citrate. Pt states that it caused o nly water discharge. Pt states she tried miralax but unable to drink it complet shelly. Last oral intake on Monday. Denies fever, chills, cp, sob. REVIEW OF SYSTEMS Review of Systems Constitutional: Positive for appetite change. Negative for activity change, chil ls, fatigue and fever. HENT: Negative for congestion and trouble swallowing. Respiratory: Negative for cough and shortness of breath. Cardiovascular: Negative for chest pain. Gastrointestinal: Positive for abdominal pain, constipation and nausea. Negative for vomiting. Genitourinary: Negative for difficulty urinating and dysuria. Skin: Negative for wound. Neurological: Positive for weakness. PAST MEDICAL HISTORY REVIEWED MEDICAL: Patient has [...] History of recurrent miscarriages, not currently ; Obesity; Multiple food allergies; Amenorrh ea; Pelvic pain in female; Abdominal pain; Hemoperitoneum; ADHD (attention defic it hyperactivity disorder); Raynaud phenomenon; Pyelonephritis; and Tobacco use on her problem list. ALLERGIES Poppyseed oil; Augmentin [amoxicillin-pot clavulanate]; and Sulfa (sulfonamide a ntibiotics) HOME MEDICATIONS Discharge Medication List as of 06/28/2017 8:07 PM CONTINUE these medications which have NOT CHANGED Details ondansetron (ZOFRAN ODT) 4 mg Tablet, Rapid Dissolve Take 1 Tablet (4 mg) by gene th every 8 hours as needed for Nausea/Emesis Dissolve tablet on top of tongue, t hen swallow with saliva.., Disp-8 Tablet, R-0 ondansetron (ZOFRAN) 4 mg Tablet Take 1 Tablet (4 mg) by mouth every 8 hours as needed for Nausea., Disp-6 Tablet, R-None amphetamine-dextroamphetamine (ADDERALL XR) 10 mg Extended Release 24 hour capsu le Take 1 Capsule (10 mg) by mouth daily wood turner. Max Daily Amount: 10 mg, Disp-30 Capsule, R-0 mupirocin calcium (BACTROBAN) 2 % Cream Apply to affected area 2 times daily for 10 days., Disp-15 Gram, R-1 fluconazole (DIFLUCAN) 150 mg tablet Take 1 Tablet (150 mg) by mouth daily., Dis p-1 Tablet, R-1 clonazePAM (KlonoPIN) 1 mg tablet Take 0.5 Tablets (0.5 mg) by mouth 2 times mohan ly as needed for Anxiety., Disp-60 Tablet, R-1 cetirizine (ZyrTEC) 10 mg tablet Take 1 Tablet (10 mg) by mouth daily., Disp-30 Tablet, R-2 FLUoxetine (PROzac) 20 mg capsule Take 1 Capsule (20 mg) by mouth daily., Disp-9 0 Capsule, R-1 Objective PHYSICAL EXAM INITIAL VS BP: 135/65 (06/28/171722), Heart Rate: 67 bpm (06/28/171722), Resp: 16 (1722), Temp: 98.8 F (37.1 C) (06/28/171722), Temp src: Oral (06/28/17), SpO2: 98 % (06/28/171722), Height: 5' 2" (157.5 cm) (06/28/171722), Weigh t: 93.4 kg (206 lb) (06/28/171722), BMI (Calculated): 37.67 (06/28/171722) Joycelyn harley's last menstrual period was 05/27/2017 (approximate). Physical Exam Constitutional: She is oriented to person, place, and time. She appears well-dev eloped and well-nourished. No distress. Cardiovascular: Normal rate, regular rhythm and normal heart sounds. No murmur heard. Pulmonary/Chest: Effort normal and breath sounds normal. No respiratory distress . She has no wheezes. Abdominal: Soft. Bowel sounds are normal. She exhibits no distension and no mass . There is tenderness. There is no rebound and no guarding. Musculoskeletal: Normal range of motion. She exhibits no edema. Neurological: She is alert and oriented to person, place, and time. No cranial n erve deficit. Skin: No rash noted. No erythema. Psychiatric: She has a normal mood and affect. Her behavior is normal. Judgment and thought content normal. Nursing note and vitals reviewed. DIAGNOSTICS LAB: COMPREHENSIVE METABOLIC PANEL - Abnormal Result Value SODIUM 135 (*) POTASSIUM 3.4 (*) CHLORIDE 95 (*) CO2 22 CALCIUM 9.0 BUN 5 (*) CREATININE 0.73 GLUCOSE 96 TOTAL PROTEIN 7.4 ALBUMIN 4.4 BILIRUBIN TOTAL 0.4 ALKALINE PHOSPHATASE 52 AST 15 ALT 12 GFR >60 GFR, >60 ANION GAP 18 CBC WITH DIFFERENTIAL - Normal WBC 9.7 RBC 4.04 HEMOGLOBIN 11.9 HEMATOCRIT 34.4 MCV 85.1 MCH 29.5 MCHC 34.6 RDW 14.0 RDW-STDEV 43.4 PLATELETS 281 MPV 10.0 NEUTROPHILS 66 LYMPHOCYTES 26 MONOCYTES 7 EOSINOPHILS 1 BASOPHILS 0 IMMATURE GRANULOCYTES 0 NEUTROPHIL ABSOLUTE 6.40 LYMPHOCYTE ABSOLUTE 2.53 MONOCYTE ABSOLUTE 0.68 EOSINOPHIL ABSOLUTE 0.05 BASOPHILS ABSOLUTE 0.03 IMMATURE GRANULOCYTES ABSOLUTE 0.03 RADIOLOGY: XR ABDOMEN W DECUB AND OR ERECT 2 VW Radiologist Impression IMPRESSION: Negative for evidence of high-grade mechanical obstruction, perforation Exam: XR ABDOMEN W DECUB AND OR ERECT 2 VW Date/Time of Exam: 06/28/2017 6:07 PM Reason For Exam: Constipation. FINDINGS: 2 views No significant stool retention is shown in the colon The visualized bowel gas pattern is within normal limits Negative for pathologic GI tract dilatation Negative for pathologic air-fluid level Negative for intraperitoneal free air Both lungs appear clear IMPRESSION: Negative for evidence of high-grade mechanical obstruction, perforation Electronically Signed By: Dalton Askew MD on MonJun 28, 2017 6:38:13 PM Dictated by: DALTON ASKEW MD on MonJun 28, 2017 6:38:13 PM KILN BURNER HELPER EKG: PROCEDURES Procedures MEDICAL DECISION MAKING AND PLAN OF CARE ED Course MDM Clinical Course: Unclear etiology at this time for nausea Rx phenergan suppository given F/u w/ PCP recommended Medications Administered During the ED Stay from 06/28/2017 1658 to 06/28/2017 2 211 Date/Time Order Dose Route Action 06/28/2017 1846 prochlorperazine (COMPAZINE) injection 10 mg 10 mg IM Given Discharge Medication List as of 06/28/2017 8:07 PM CONTINUE these medications which have NOT CHANGED Details ondansetron (ZOFRAN ODT) 4 mg Tablet, Rapid Dissolve Take 1 Tablet (4 mg) by gene th every 8 hours as needed for Nausea/Emesis Dissolve tablet on top of tongue, t hen swallow with saliva.., Disp-8 Tablet, R-0 ondansetron (ZOFRAN) 4 mg Tablet Take 1 Tablet (4 mg) by mouth every 8 hours as needed for Nausea., Disp-6 Tablet, R-None amphetamine-dextroamphetamine (ADDERALL XR) 10 mg Extended Release 24 hour capsu le Take 1 Capsule (10 mg) by mouth daily wood turner. Max Daily Amount: 10 mg, Disp-30 Capsule, R-0 mupirocin calcium (BACTROBAN) 2 % Cream Apply to affected area 2 times daily for 10 days., Disp-15 Gram, R-1 fluconazole (DIFLUCAN) 150 mg tablet Take 1 Tablet (150 mg) by mouth daily., Dis p-1 Tablet, R-1 clonazePAM (KlonoPIN) 1 mg tablet Take 0.5 Tablets (0.5 mg) by mouth 2 times mohan ly as needed for Anxiety., Disp-60 Tablet, R-1 cetirizine (ZyrTEC) 10 mg tablet Take 1 Tablet (10 mg) by mouth daily., Disp-30 Tablet, R-2 FLUoxetine (PROzac) 20 mg capsule Take 1 Capsule (20 mg) by mouth daily., Disp-9 0 Capsule, R-1 LAST VS BP: 135/65 (06/28/17 1723), Heart Rate: 67 bpm (06/28/17 1723), Resp: 16 ( 1723), Temp: 98.8 F (37.1 C) (06/28/17 1723), Temp src: Oral (06/28/17 17 23), SpO2: 98 % (06/28/17 1723) CLINICAL IMPRESSION Final diagnoses: [R11.0] Nausea (Primary) DISPOSITION, EDUCATION AND MEDICATION RECONCILIATION Medications reconciled. See after visit summary for patient education on discha rged patients. ED Disposition ED Disposition Condition User Date/Time Comment Discharge Stable Richard Martell MD MonJun 28, 2017 8:05 PM ATTESTATION STATEMENTS BURNER HELPER documented in this encounter Plan of Treatment Not on filedocumented as of this encounter Procedures Comments Procedure Name Priority Date/Time Associated Diag nosis XR ABDOMEN W DECUB AND OR Stat 06/28/2017 ERECT 2 VW 6:07 PM KILN BURNER HELPER CBC WITH DIFFERENTIAL Stat 06/28/2017 5:40 PM KILN BURNER HELPER COMPREHENSIVE METABOLIC Stat 06/28/2017 PANEL 5:40 PM KILN BURNER HELPER documented in this encounter Results * XR ABDOMEN W DECUB AND OR ERECT 2 VW (06/28/2017 6:07 PM KILN BURNER HELPER) Specimen Impressions Performed At IMPRESSION: INTERFACE SYSTEM Negative for evidence of high-grade mec hanical obstruction, perforation Narrative Performed At Exam: XR ABDOMEN W DECUB AND OR ERECT 2 VW INTERFACE SYSTEM Date/Time of Exam: 06/28/2017 6:07 PM Reason For Exam: Constipation. FINDINGS: 2 views No significant stool retention is shown in the colon The visualized bowel gas pattern is wit hin normal limits Negative for pathologic GI tract dilata tion Negative for pathologic air-fluid level Negative for intraperitoneal free air Both lungs appear clear Procedure Note Interface, [facility] Incoming Radiology Results - 06/28/2017 6:38 PM KILN BURNER HELPER Exam: XR ABDOMEN W DECUB AND OR ERECT 2 VW Date/Time of Exam: 06/28/2017 6:07 PM Reason For Exam: Constipation. FINDINGS: 2 views No significant stool retention is shown in the colon The visualized bowel gas pattern is within normal limits Negative for pathologic GI tract dilatation Negative for pathologic air-fluid level Negative for intraperitoneal free air Both lungs appear clear IMPRESSION: Negative for evidence of high-grade mechanical obstruction, perforation Performing Organization Address City/State/Zipcode Ph one Number INTERFACE SYSTEM INTERFACE SYSTEM Refer to clinic/hospital department * COMPREHENSIVE METABOLIC PANEL (06/28/2017 5:40 PM KILN BURNER HELPER) SODIUM 135 (L) 136 - 145 mmol/L [facility] [place] POTASSIUM 3.4 (L) 3.5 - 5.1 mmol/L [facility] [place] CHLORIDE 95 (L) 98 - 107 mmol/L [facility] [place] CO2 22 22 - 29 mmol/L [facility] [place] CALCIUM 9.0 8.6 - 10.0 mg/dL [facility] [place] BUN 5 (L) 6 - 20 mg/dL [facility] [place] CREATININE 0.73 0.51 - 0.95 mg/dL [facility] [place] GLUCOSE 96 70 - 100 mg/dL [facility] [place] TOTAL PROTEIN 7.4 6.6 - 8.7 g/dL [facility] [place] ALBUMIN 4.4 3.5 - 5.2 g/dL [facility] [place] BILIRUBIN TOTAL 0.4 <=1.2 mg/dL [facility] [place] ALKALINE 52 35 - 104 U/L [facility] PHOSPHATASE [facility] [place] AST 15 <=33 U/L [facility] - [facility] [place] ALT 12 10 - 35 U/L [facility] [place] GFR >60 >=60 mL/min/1.73 sq [facility] Comment: meter LABORATORY eGFR has not been validated [facility] for use in the elderly (> 70 [place] years of age), women, patients with serious [...] result. GFR, >60 >=60 mL/min/1.73 sq [facility] meter [facility] [place] ANION GAP 18 4 - 20 mmol/L [facility] [place] Specimen Blood Performing Organization Address City/State/[facility] Ph one Number [facility] CLIA# [id number] [place] [address] [address] [place] [address] [facility] * CBC WITH DIFFERENTIAL (06/28/2017 5:40 PM KILN BURNER HELPER) WBC 9.7 3.6 - 11.1 K/uL [facility] [place] RBC 4.04 3.78 - 5.21 M/uL [facility] [place] HEMOGLOBIN 11.9 11.1 - 15.5 g/dL [facility] [place] HEMATOCRIT 34.4 34.3 - 46.7 % [facility] [place] MCV 85.1 82.7 - 97.1 fL [facility] [place] MCH 29.5 27.1 - 32.3 pg [facility] [place] MCHC 34.6 31.3 - 34.9 g/dL [facility] [place] RDW 14.0 11.5 - 14.7 % [facility] [place] RDW-STDEV 43.4 37.2 - 47.6 fL [facility] [place] PLATELETS 281 136 - 352 K/uL [facility] [place] MPV 10.0 8.6 - 11.8 fL [facility] [place] NEUTROPHILS 66 44 - 74 % [facility] [place] LYMPHOCYTES 26 16 - 44 % [facility] [place] MONOCYTES 7 4 - 11 % [facility] [place] EOSINOPHILS 1 0 - 6 % [facility] [place] BASOPHILS 0 0 - 1 % [facility] [place] IMMATURE 0 0 - 1 % [facility] GRANULOCYTES [facility] [place] NEUTROPHIL 6.40 1.54 - 7.18 K/uL [facility]UTE [facility] [place] LYMPHOCYTE 2.53 0.69 - 3.61 K/uL [facility] [place] MONOCYTE 0.68 0.19 - 0.95 K/uL [facility] [place] EOSINOPHIL 0.05 0.00 - 0.44 K/uL [facility] [place] BASOPHILS 0.03 0.00 - 0.10 K/uL [facility] [place] IMMATURE 0.03 0.00 - 0.09 K/uL [facility] GRANULOCYTES [facility]UTE [facility] [place] Specimen Blood Performing Organization Address City/State/[facility] Ph one Number [facility] CLIA# [id number] [place] [address] - [place] [address] [place] [address] documented in this encounter Visit Diagnoses Diagnosis Nausea - Primary Nausea alone documented in this encounter Administered Medications Action Date Dose Rate Site Medication Order MAR Action 06/28/2017 6:46 PM KILN BURNER HELPER 10 mg Buttock, Left prochlorperazine (COMPAZINE) injection Given 10 mg 10 mg, IM, ONE TIME ONLY, 1 dose, 06/28/17 at 1845, Stat documented in this encounter
--- OUTSIDE RECORDS SUMMARY | 2019-09-21 04:04 | XMS REPORT | Encounter Summary ---
Author Author [facility] Organization [facility] Address Unknown Phone Unavailable Care Team Providers Care Ornithology Teacher Name Role Phone Emelia Caldwell MD PCP Unavailable Reason for Visit * Reason Comments Medication Refill PT requesting pain medicati on for her ongoing back pain & hematuria. reporting that she had blood in her uri ne 1 time today Encounter Details Care Team Description Date Type Department 07/11/2017 Emergency [facility] Emergency Department [address] [address] Social History Date Tobacco Use [...] Signs Reading Time Taken Comments Vital Sign 118/80 07/11/2017 5:18 PM SOLAR SALES ASSOCIATE Blood Pressure - - Pulse 35.9 C (96.7 F) 07/11/2017 5:18 PM SOLAR SALES ASSOCIATE Temperature 20 07/11/2017 5:18 PM SOLAR SALES ASSOCIATE Respiratory Rate 96% 07/11/2017 5:18 PM SOLAR SALES ASSOCIATE Oxygen Saturation - - Inhaled Oxygen Concentration 90.7 kg (200 lb) 07/11/2017 5:18 PM SOLAR SALES ASSOCIATE Weight 157.5 cm (5' 2") 07/11/2017 5:18 PM SOLAR SALES ASSOCIATE Height 36.58 07/11/2017 5:18 PM SOLAR SALES ASSOCIATE Body Mass Index documented in this encounter Medications at Time of Discharge Start Date End Date Medication Sig Dispensed Refills 06/20/2017 07/24/2017 amphetamine-dextroampheta Take 1 30 Capsule [...] ED Notes * Guillermina Ambrose RN - 07/11/2017 6:02 PM SOLAR SALES ASSOCIATE bond clerk to ER desk with refusal of treatment. PT has reported that i t is taking too long for her to be seen and that she is going to try to "wait it out till tomorrow or ." Pt has signed refusal. Contacted [facility] and verified with staff that they have spoken to pt today. R SALES ASSOCIATE * Guillermina Ambrose RN - 07/11/2017 5:18 PM SOLAR SALES ASSOCIATE Pt found sitting in waiting room & brought to triage area. Reports that she is trying to get a referal to a "airline reservationist" but that her doctor, "Dr. Bermudez" just gave her the papers & told her to find one that is on her insurance. Pt reports that she is having nausea, but is here tonight because she needs pain medication. Inquired if she had attempted to contact her PCP office concerning her ongoing pain & when was the last time she was seen by her PCP. Reports that she hasn't seen her PCP for several days and that she tried to call the office around 1115 this morning but that no one has ever called her back today. Pt aware that due to triaging that there will be a wait before getting to a [facility] room. Pt again states that she just needs Pain medication. R SALES ASSOCIATE documented in this encounter Plan of Treatment Not on filedocumented as of this encounter Visit Diagnoses Not on filedocumented in this encounter
--- OUTSIDE RECORDS SUMMARY | 2019-09-21 04:04 | XMS REPORT | Encounter Summary ---
Author Author [facility] Organization [facility] Address Unknown Phone Unavailable Care Team Providers Care Health Advisor Name Role Phone Emelia Caldwell MD PCP Unavailable Reason for Visit * Reason Comments Follow Up breast sono due depression scree, tobacco i ntervention, BMI f/u Urinary Pain Encounter Details Care Team Description Date Type Department Mayra Bermudez, AZEEM NO ADDRESS ON FILE Urinary pain (Primary Dx); Malaise; Fever, unspecified fever cause; Galactorrhea 07/06/2017 Office Visit [facility] [address] [phone] Social History Date Tobacco Use Types Packs/Day [...] Signs Reading Time Taken Comments Vital Sign 110/62 07/06/2017 8:52 AM GENERAL CONTRACTOR Blood Pressure 78 07/06/2017 8:52 AM GENERAL CONTRACTOR Pulse 36.4 C (97.6 F) 07/06/2017 8:52 AM GENERAL CONTRACTOR Temperature 18 07/06/2017 8:52 AM GENERAL CONTRACTOR Respiratory Rate 97% 07/06/2017 8:52 AM GENERAL CONTRACTOR Oxygen Saturation - - Inhaled Oxygen Concentration 94.8 kg (209 lb) 07/06/2017 8:52 AM GENERAL CONTRACTOR Weight 158.8 cm (5' 2.5") 07/06/2017 8:52 AM GENERAL CONTRACTOR Height 37.62 07/06/2017 8:52 AM GENERAL CONTRACTOR Body Mass Index documented in this encounter Progress Notes * Mayra Bermudez APRN - 07/06/2017 9:08 AM GENERAL CONTRACTOR HISTORY OF PRESENT ILLNESS Opal Trimble, a 27 y.o. female presents with a Chief Complaint of Follow Up (breast sono); due (depression scree, tobacco intervention, BMI f/u); and Uri nary Pain Subjective HPI Comes in for follow-up of breast US and hematuria. Also c/o having intermittent fevers and general malaise that resolves spontaneously. This has been present for about 3 years now. She brings in her health records for me to review. REVIEW OF SYSTEMS Review of Systems Constitutional: Positive for fever. General malaise intermittent Gastrointestinal: Positive for constipation. Genitourinary: Positive for hematuria. Musculoskeletal: Positive for back pain. DEPRESSION SCREEN Positive: PHQ-2 score > 2 or PHQ-9 score > 9 PHQ-2 Total: 0 (07/06/17 0800) Her depression screen was normal TOBACCO COUNSELING She is not a tobacco user. Quit one week ago. Normal BMI Range: 18 & older: > or = 18.5 and < 25 Body mass index is 37.62 kg/m. Abnormal high BMI: Patient counseled on lifestyle modifications including weight loss and daily exercise. Objective PHYSICAL EXAM BP 110/62 (BP Location: Right arm, Patient Position (BP): Sitting, BP Cuff Size: Large Adult) | Pulse 78 | Temp 97.6 F (36.4 C) (Temporal) | Resp 18 | Ht 5' 2.5" (1.588 m) | Wt 94.8 kg (209 lb) | LMP 06/21/2017 | SpO2 97% | BMI 37.62 kg/m Physical Exam No PE today. Reviewed her breast US. Urine today showed 1+ bili tr of blood an d 1+ protein. Assessment ASSESSMENT and PLAN: ICD-10-CM ICD-9-CM 1. Urinary pain R30.9 788.1 POC URINALYSIS DIPSTICK NON AUTOMATED URINE CULTURE 2. Malaise R53.81 780.79 3. Fever, unspecified fever cause R50.9 780.60 4. Galactorrhea O92.6 611.6 Cmp, cbcd, tsh, free t4, crp and sed Rate. Will return in 2 weeks for follow-up . Will review the records she has provided today and discuss at that follow-up visit. RAL CONTRACTOR documented in this encounter Plan of Treatment Not on filedocumented as of this encounter Procedures Comments Procedure Name Priority Date/Time Associated Diag nosis URINE CULTURE Routine 07/06/2017 Urinary pain 9:45 AM GENERAL CONTRACTOR CBC WITH DIFFERENTIAL Routine 07/06/2017 Urinary pain 9:44 AM GENERAL CONTRACTOR Malaise Fever, unspecified fever cause SEDIMENTATION RATE Routine 07/06/2017 Malaise 9:44 AM GENERAL CONTRACTOR Fever, unspecified fever cause C-REACTIVE PROTEIN Routine 07/06/2017 Malaise 9:44 AM GENERAL CONTRACTOR Fever, unspecified fever cause TSH Routine 07/06/2017 Malaise 9:44 AM GENERAL CONTRACTOR Fever, unspecified fever cause T4 FREE Routine 07/06/2017 Malaise 9:44 AM GENERAL CONTRACTOR Fever, unspecified fever cause COMPREHENSIVE METABOLIC Routine 07/06/2017 Malais e PANEL 9:44 AM GENERAL CONTRACTOR Fever, unspecified fever cause POC URINALYSIS DIPSTICK Routine 07/06/2017 Urinar y pain NON AUTOMATED 8:58 AM GENERAL CONTRACTOR documented in this encounter Results * URINE CULTURE (07/06/2017 9:45 AM GENERAL CONTRACTOR) Specimen Urine - Urine specimen obtained by clean catch procedure (specimen) Narrative Performed At [facility] See scanned report, performed by Ti Mishra. FLORENTINI GALLO - [place] Performing Organization Address City/State/Zipcode Ph one Number [facility] CLIA# [id number] [place] [address] - [place] [address] [place] [address] * T4 FREE (07/06/2017 9:44 AM GENERAL CONTRACTOR) T4 FREE 1.65 0.93 - 1.70 ng/dL [facility] - [place] Specimen Blood Performing Organization Address [facility] Ph one Number [facility] CLIA# [id number] [place] [address] - [place] [address] [facility] * TSH (07/06/2017 9:44 AM GENERAL CONTRACTOR) TSH 0.93 0.27 - 4.20 uIU/mL [facility] [place] Specimen Blood Performing Organization Address [facility] one Number [facility] CLIA# [id number] [place] [address] - [place] [address] [facility] * COMPREHENSIVE METABOLIC PANEL (07/06/2017 9:44 AM GENERAL CONTRACTOR) SODIUM 142 136 - 145 mmol/L [facility] [place] POTASSIUM 4.3 3.5 - 5.1 mmol/L [facility] [place] CHLORIDE 103 98 - 107 mmol/L [facility] [place] CO2 22 22 - 29 mmol/L [facility] [place] CALCIUM 8.8 8.6 - 10.0 mg/dL [facility] [place] BUN 10 6 - 20 mg/dL [facility] [place] CREATININE 0.80 0.51 - 0.95 mg/dL [facility] [place] GLUCOSE 96 70 - 100 mg/dL [facility] [place] TOTAL PROTEIN 7.0 6.6 - 8.7 g/dL [facility] [place] ALBUMIN 4.2 3.5 - 5.2 g/dL [facility] [place] BILIRUBIN TOTAL 0.3 <=1.2 mg/dL [facility] [place] ALKALINE 49 35 - 104 U/L [facility] - [place] AST 16 <=33 U/L [facility] [place] ALT 13 10 - 35 U/L [facility] [place] GFR >60 >=60 mL/min/1.73 sq [facility] Comment: meter LABORATORY eGFR has not been validated SERVICES - [facility] for use in the elderly (> [...] result. GFR, >60 >=60 mL/min/1.73 sq [facility] - [place] ANION GAP 17 4 - 20 mmol/L [facility] [place] Specimen Blood Performing Organization Address City/State/[facility] Ph one Number [facility] CLIA# [id number] [place] [address] - [place] [address] [facility] * CBC WITH DIFFERENTIAL (07/06/2017 9:44 AM GENERAL CONTRACTOR) WBC 7.3 3.6 - 11.1 K/uL [facility] [place] RBC 4.05 3.78 - 5.21 M/uL [facility] [place] HEMOGLOBIN 11.8 11.1 - 15.5 g/dL [facility] [place] HEMATOCRIT 35.0 34.3 - 46.7 % [facility] [place] MCV 86.4 82.7 - 97.1 fL [facility] [place] MCH 29.1 27.1 - 32.3 pg [facility] [place] MCHC 33.7 31.3 - 34.9 g/dL [facility] [place] RDW 14.6 11.5 - 14.7 % [facility] [place] RDW-STDEV 45.7 37.2 - 47.6 fL [facility] [place] PLATELETS 279 136 - 352 K/uL [facility] [place] MPV 10.3 8.6 - 11.8 fL [facility] [place] NEUTROPHILS 61 44 - 74 % [facility] [place] LYMPHOCYTES 30 16 - 44 % [facility] [place] MONOCYTES 7 4 - 11 % [facility] [place] EOSINOPHILS 1 0 - 6 % [facility] [place] BASOPHILS 0 0 - 1 % [facility] [place] IMMATURE 0 0 - 1 % [facility]UL[facility] - [place] NEUTROPHIL 4.50 1.54 - 7.18 K/uL [facility] - [place] LYMPHOCYTE 2.18 0.69 - 3.61 K/uL [facility] ABSOLUTE LABORATORY SERVICES - [place] MONOCYTE 0.52 0.19 - 0.95 K/uL [facility] ABSOLUTE LABORATORY SERVICES - [place] EOSINOPHIL 0.10 0.00 - 0.44 K/uL [facility] ABSOLUTE LABORATORY SERVICES - [place] BASOPHILS 0.02 0.00 - 0.10 K/uL [facility] - [place] IMMATURE 0.01 0.00 - 0.09 K/uL [facility] GRANULOCYTES LABORATORY ABSOLUTE SERVICES - [place] Specimen Blood Performing Organization Address [facility] one [facility] SERVICES CLIA# [id number] T[place]HA [place] [address] - [place] [address] [place] [address] * C-REACTIVE PROTEIN (07/06/2017 9:44 AM GENERAL CONTRACTOR) Pathologist [facility] CRP 2.6 <=5.0 mg/L [facility] SERVICES-[place] Specimen Blood Narrative Performed At REFERENCE LAB ACC #: [id number] [facility] Y SERVICES-[place] Performing Organization Address [facility] one [facility] CLIA # [id number] [place] [address] [phone] SERVICES-[place] [address] [facility] CLIA # [id number] [place] [address] SERVICES-[place] [address] [facility] * SEDIMENTATION RATE (07/06/2017 9:44 AM GENERAL CONTRACTOR) ESR 42 (H) 0 - 20 mm/Hr [facility] (SEDIMENTATION LABORATORY RATE) SERVICES - [place] Specimen Blood Performing Organization Address [facility] one [facility] SERVICES CLIA# [id number] TESHA G[place] [address] - [place] [address] [place] [address] * POC URINALYSIS DIPSTICK NON AUTOMATED (07/06/2017 8:58 AM GENERAL CONTRACTOR) COLOR UA Yellow Pale to dark yellow [facility] CLARITY UA Clear Clear [facility] GLUCOSE UA Negative NEG [facility] BILIRUBIN UA 1+ (A) Negative [facility] KETONES UA Negative Negative [facility] SPECIFIC 1.020 1.003 - 1.035 [facility] GRAVITY [facility] BLOOD UA Trace (A) Negative [facility] PH UA 7.0 5.0 - 8.0 [facility] PROTEIN UA 1+ (A) Negative [facility] UROBILINOGEN UA 0.2 2.0 mg/dL [facility] NITRITE UA Negative Negative [facility] LEUKOCYTE Negative Negative [facility] ESTERASE [facility] Specimen Urine Performing Organization Address City/State/Zipcode Ph one Number [facility] [id number] [place], [place] [phone] [place] [id number] [place] [address] documented in this encounter Visit Diagnoses Diagnosis Urinary pain - Primary Renal colic Malaise Other malaise and fatigue Fever, unspecified fever cause Galactorrhea Galactorrhea not associated with childb irth documented in this encounter
--- OUTSIDE RECORDS SUMMARY | 2019-09-21 04:04 | XMS REPORT | Encounter Summary ---
Author Author [facility] Organization [facility] Address Unknown Phone Unavailable Care Team Providers Care Classics Professor Name Role Phone Emelia Caldwell MD PCP Unavailable Reason for Visit * Reason Comments Question Encounter Details Care Team Description Date Type Department Cassie Acuna, RN Question 07/07/[address] [phone] Social History Date Tobacco Use [...] encounter Miscellaneous Notes * Telephone Encounter - Cassie Acuna RN - 07/07/2017 2:01 PM CIVIL MANAGER Pt called in and stated her hands are swelling and she feels dizzy on and off. D iscussed with amanda geller and she stated she wanted pt to take benadryl and call back with response. Pt aware and verbalized understanding. Pt aware. L MANAGER documented in this encounter Plan of Treatment Not on filedocumented as of this encounter Visit Diagnoses Not on filedocumented in this encounter
--- OUTSIDE RECORDS SUMMARY | 2019-09-21 04:04 | XMS REPORT | Encounter Summary ---
Author Author [facility] Organization [facility] Address Unknown Phone Unavailable Care Team Providers Care Office Support Specialist Name Role Phone Emelia Caldwell MD PCP Unavailable Reason for Visit * Reason Comments Sore Throat cough/VANN/ nausea for 3 days Encounter Details Care Team Description Date Type Department Jose Jazmin Orourke, BLOCK STACKER [address] [place] [phone] Acute URI (Primary Dx); Pain in throat 05/03/2017 Office Visit [facility] [address] [place] [phone] Social History Date Tobacco Use Types Packs/Day [...] history available. documented as of this encounter Progress Notes * Jose Danuta, BLOCK STACKER - 05/03/2017 5:26 PM DIRECTOR OF SPECIAL SERVICES SUBJECTIVE: Opal Trimble is a 27 y.o. female who complains of congestion, sore throat , myalgias, headache, bilateral sinus pain, fever and bilateral ear pain for 4 d ays. She denies a history of chest pain and shortness of breath and denies a his tory of asthma. Patient does not smoke cigarettes. OBJECTIVE: There were no vitals taken for this visit. Appearance: alert, well appearing, and in no distress, oriented to person, place , and time and normal appearing weight. Eye: normal ENT- bilateral TM fluid noted, tonsils red, enlarged, with exudate present, fron keo sinus tender and nasal mucosa congested. Chest - clear to auscultation, no wheezes, rales or rhonchi, symmetric air entry , no tachypnea, retractions or cyanosis, S1, S2 normal, no murmurs. ASSESSMENT: sinusitis PLAN: See additional orders in EMR. Symptomatic therapy suggested: push fluids, rest a nd gargle warm salt water. Augmentin as ordered. Prednisone burst. Follow up with PCP as needed or worsening. CTOR OF SPECIAL SERVICES documented in this encounter Plan of Treatment Not on filedocumented as of this encounter Procedures Comments Procedure Name Priority Date/Time Associated Diag nosis STREPTOCOCCUS GROUP A Routine 05/03/2017 Pain in throat CULTURE 5:23 PM DIRECTOR OF SPECIAL SERVICES POC RAPID STREP A Routine 05/03/2017 Pain in thro at 5:20 PM DIRECTOR OF SPECIAL SERVICES documented in this encounter Results * STREPTOCOCCUS GROUP A CULTURE (05/03/2017 5:23 PM DIRECTOR OF SPECIAL SERVICES) Specimen Upper respiratory sample (specimen) - Specimen from throat (specimen) Narrative Performed At [facility] See scanned report, performed by Ti Mishra. GEGE HOLDER - [place] Performing Organization Address [facility] Ph one Number [facility] CLIA# [id number] [place], [place] [address] - [address] * POC RAPID STREP A (05/03/2017 5:20 PM DIRECTOR OF SPECIAL SERVICES) RAPID STREP Negative Negative [facility] INTERNAL KIT QC Pass Pass [facility] KIT LOT NUMBER [id number] [facility] KIT EXPIRATION 09/04/2018 [facility] U[facility]ENT DATE CARE Specimen Upper respiratory sample (specimen) - Specimen from throat (specimen) Performing Organization Address [facility] Ph one Number [facility] CLIA# [id number] [place], [place] [address] [facility] documented in this encounter Visit Diagnoses Diagnosis Acute URI - Primary Acute upper respiratory infections of u nspecified site Pain in throat Throat pain documented in this encounter
--- OUTSIDE RECORDS SUMMARY | 2019-09-21 04:04 | XMS REPORT | Encounter Summary ---
Author Author [facility] Organization [facility] Address Unknown Phone Unavailable Care Team Providers Care Oil Expeller Name Role Phone Emelia Caldwell MD PCP Unavailable Reason for Referral * Outpatient Services (Routine) Referred By Contact Referred To Contact Status Reason Specialty Diagnoses / Procedures Mayra Bermudez APRN NO ADDRESS ON FILE Closed Diagnoses Breast skin changes P rocedures MAMMO BREAST US LEFT LTD US BREAST UNI LEFT COMPLETE Reason for Visit * Outpatient Services (Routine) Referred By Contact Referred To Contact Status Reason Specialty Diagnoses / Procedures Mayra Bermudez APRN NO ADDRESS ON FILE Closed Diagnoses Breast skin changes P rocedures MAMMO BREAST US LEFT LTD US BREAST UNI LEFT COMPLETE Encounter Details Care Team Description Date Type Department Mayra Bermudez APRN NO ADDRESS ON FILE 06/23/2017 [facility] Encounter [facility] [address] [place] [phone] Social History Date Tobacco Use Types Packs/Day [...] Date End Date Medication Sig Dispensed Refills 06/24/2017 06/26/2017 ciprofloxacin HCl (CIPRO) Take 1 Tablet 2 Tablet 0 500 mg tablet (500 mg) by mouth daily for 2 days. 06/23/2017 07/06/2017 ondansetron (ZOFRAN) 4 mg Take [...] partial remission documented as of this encounter Plan of Treatment Not on filedocumented as of this encounter Procedures Comments Procedure Name Priority Date/Time Associated Diag nosis MAMMO BREAST US LEFT LTD Routine 06/23/2017 Breas t skin changes 8:51 AM CHAIR UPHOLSTERER documented in this encounter Results * MAMMO BREAST US LEFT LTD (06/23/2017 8:51 AM CHAIR UPHOLSTERER) Specimen Narrative Performed At History: Left breast pain for approximately three yea rs. Recent INTERFACE SYSTEM intermittent milky/clear spontaneous le ft nipple discharge. Targeted left breast ultrasound: Sonogr aphic evaluation was performed in the area of clinical interest, exten ding from the approximate 2:00 to 7:00 position. Additionally, imaging was performed in the subareolar region and axilla. COMPARISON: Bilateral breast ultrasound 08/14/2015. FINDINGS: No solid or cystic masses or evidence of architectural distortion in either the regions of cli nical interest or subareolar. No visible interval changes. No abnorma lity identified in the left axilla. CONCLUSION: No visualized sonographic a bnormalities. BI-RADS 2: Benign findings. Recommendation: If clinical symptoms pe rsist or if otherwise clinically warranted, bilateral breast MRI could be performed for further evaluation. Additionally, clinical evaluation recom mended, as imaging does not have 100% sensitivity for detecting mal ignancy, and if there are suspicious clinical features, further e valuation including possible tissue sampling may be advised. Performing Organization Address City/State/Zipcode Ph one Number INTERFACE SYSTEM INTERFACE SYSTEM Refer to clinic/hospital department documented in this encounter Visit Diagnoses Diagnosis Breast skin changes Changes in skin texture documented in this encounter
--- OUTSIDE RECORDS SUMMARY | 2019-09-21 04:04 | XMS REPORT | Encounter Summary ---
Author Author [facility] Organization [facility] Address Unknown Phone Unavailable Care Team Providers Care Algology Teacher Name Role Phone Emelia Caldwell MD PCP Unavailable Reason for Visit * Reason Comments Abdominal Pain LUQ pain, constipated and s ore throat. "Feels hungry." * Auth/Cert Referred By Contact Referred To Contact Status Reason Specialty Diagnoses / Procedures [facility] Emergency [address] [place] [address] Emergency Medicine Encounter Details Care Team Description Date Type Department Richard Martell MD NO ADDRESS ON FILE Acute cystitis with hematuria (Primary D x); Constipation, unspecified constipation type 06/23/2017 Emergency [facility] Emergency Department [address] [address] Social History Date Tobacco Use [...] Signs Reading Time Taken Comments Vital Sign 119/58 06/23/2017 7:07 PM PBX OPERATOR Blood Pressure - - Pulse 36.7 C (98.1 F) 06/23/2017 7:07 PM PBX OPERATOR Temperature 14 06/23/2017 7:07 PM PBX OPERATOR Respiratory Rate 97% 06/23/2017 7:07 PM PBX OPERATOR Oxygen Saturation - - Inhaled Oxygen Concentration 88.5 kg (195 lb) 06/23/2017 7:07 PM PBX OPERATOR Weight 158.8 cm (5' 2.5") 06/23/2017 7:07 PM PBX OPERATOR Height 35.1 06/23/2017 7:07 PM PBX OPERATOR Body Mass Index documented in this encounter Discharge Instructions * Instructions* Richard Martell MD - 06/23/2017 Please . Increase your fluid intake . Consider cranberry juice or tables while taking antibiotic . Consider increasing fiber intake (e.g. Fresh fruit or vegetables or pills or p ower form) . Start 1 bottle of mag citrate tomorrow morning (plan to stay home.) If no bow el movement for 24 hours then start taking Senokot-s every 12 hours and Miralax every 12 hours until you have a good bowel movement or diarrhea develops . Read the provided handouts . Follow up with your PCP in 7 days * Attachments The following attachments cannot be sent through Care Everywhere.* UTI (Urinary Tract Infection): Female (Setswana) * Constipation (Setswana) documented in this encounter Medications at Time [...] ED Notes * Richard Martell MD - 06/23/2017 6:43 PM PBX OPERATOR HISTORY OF PRESENT ILLNESS Opal Trimble, a 27 y.o. female presents to the ED with a Chief Complaint of Abdominal Pain Subjective Pt presents w/ cc of RUq abd pain, dark foul smelling urine and nausea x 2 days. Pt states she does not drink enough. She only had 2 cups of coffee today and 1/2 energy drink. Pt states she has small stools. REVIEW OF SYSTEMS Review of Systems Constitutional: Negative for activity change, appetite change, chills, fatigue a nd fever. HENT: Negative for congestion, ear discharge, ear pain, postnasal drip, rhinorrh ea, sinus pressure, sneezing, sore throat and trouble swallowing. Respiratory: Negative for cough, shortness of breath and wheezing. Cardiovascular: Negative for chest pain. Gastrointestinal: Positive for abdominal pain, constipation, nausea and vomiting . Negative for anal bleeding, blood in stool and diarrhea. Genitourinary: Positive for dysuria. Negative for difficulty urinating, flank pa in, frequency and hematuria. Skin: Negative for color change and rash. Neurological: Negative for dizziness, light-headedness and headaches. PAST MEDICAL HISTORY REVIEWED MEDICAL: Patient has a past medical history of ADD (attention deficit disorder with hype ractivity); Depression; Insomnia; Lacrimal duct tumor; and Obesity (BMI 30.0-39. 9) (2008). She also has no past medical history of Acute venous embolism and thr ombosis of unspecified deep vessels of lower extremity; Chest pain; Difficult in tubation; Injury of back; Injury of face and neck; Latex sensitivity; Malignant hyperthermia; Obstructive sleep apnea (adult) (pediatric); Temporomandibular olivia nt disorders, unspecified; or Unspecified adverse effect of anesthesia. SURGICAL: Patient has a past surgical history [...] and has had male partners. She reports in g the following method of control/protection: None. [...] HOME MEDICATIONS Discharge Medication List as of 06/23/2017 8:27 PM START taking these medications Details ciprofloxacin HCl (CIPRO) 500 mg tablet Take 1 Tablet (500 mg) by mouth daily fo r 2 days., Disp-2 Tablet, R-0 ondansetron (ZOFRAN ODT) 4 mg Tablet, Rapid Dissolve Take 1 Tablet (4 mg) by gene th every 8 hours as needed for Nausea/Emesis Dissolve tablet on top of tongue, t hen swallow with saliva.., Disp-8 Tablet, R-0 ondansetron (ZOFRAN) 4 mg Tablet Take 1 Tablet (4 mg) by mouth every 8 hours as needed for Nausea., Disp-6 Tablet, R-None CONTINUE these medications which have NOT CHANGED Details clonazePAM (KlonoPIN) 1 mg tablet Take 0.5 Tablets (0.5 mg) by mouth 2 times mohan ly as needed for Anxiety., Disp-60 Tablet, R-1 amphetamine-dextroamphetamine (ADDERALL XR) 10 mg Extended Release 24 hour capsu le Take 1 Capsule (10 mg) by mouth daily intermediate accountant. Max Daily Amount: 10 mg, Disp-30 Capsule, R-0 mupirocin calcium (BACTROBAN) 2 % Cream Apply to affected area 2 times daily for 10 days., Disp-15 Gram, R-1 fluconazole (DIFLUCAN) 150 mg tablet Take 1 Tablet (150 mg) by mouth daily., Dis p-1 Tablet, R-1 cetirizine (ZyrTEC) 10 mg tablet Take 1 Tablet (10 mg) by mouth daily., Disp-30 Tablet, R-2 FLUoxetine (PROzac) 20 mg capsule Take 1 Capsule (20 mg) by mouth daily., Disp-9 0 Capsule, R-1 Objective PHYSICAL EXAM INITIAL VS BP: 119/58 (06/23/171906), Heart Rate: 90 bpm (06/23/171906), Resp: 14 (1906), Temp: 98.1 F (36.7 C) (06/23/171906), Temp src: Oral (06/23/1723 11), SpO2: 97 % (06/23/171906), Height: 5' 2.5" (158.8 cm) (06/23/171906), Dante ght: 88.5 kg (195 lb) (06/23/171906), BMI (Calculated): 35.08 (06/23/171906) P atient's last menstrual period was 05/27/2017 (approximate). Physical Exam Constitutional: She is oriented to person, place, and time. She appears well-dev eloped and well-nourished. No distress. Cardiovascular: Normal rate, regular rhythm and normal heart sounds. No murmur heard. Pulmonary/Chest: Effort normal and breath sounds normal. No respiratory distress . She has no wheezes. Abdominal: Soft. She exhibits no distension and no mass. Bowel sounds are decrea sed. There is tenderness in the left upper quadrant. There is no rebound and no guarding. No hernia. Musculoskeletal: Normal range of motion. She exhibits no edema. Neurological: She is alert and oriented to person, place, and time. No cranial n erve deficit. Skin: No rash noted. No erythema. Psychiatric: She has a normal mood and affect. Her behavior is normal. Judgment and thought content normal. Nursing note and vitals reviewed. DIAGNOSTICS LAB: URINALYSIS WITH REFLEX CULTURE - Abnormal Result Value COLOR UA Yellow CLARITY UA Cloudy (*) SPECIFIC GRAVITY UA 1.025 PH UA 5.5 LEUKOCYTE ESTERASE UA 3+ (*) NITRITE UA Positive (*) PROTEIN UA 1+ (*) GLUCOSE UA Negative KETONES UA Negative UROBILINOGEN UA <2.0 BILIRUBIN UA Negative BLOOD UA Trace (*) WBC UA 26-50 (*) RBC UA 3-5 (*) BACTERIA UA 4+ (*) EPITHELIAL CELLS, URINE 6-10 (*) COMMENT, URINE Mucous: Many HCG QUALITATIVE, URINE - Abnormal HCG QUAL URINE Negative COLOR UA Yellow CLARITY UA Cloudy (*) URINE CULTURE RADIOLOGY: XR ABDOMEN W DECUB AND OR ERECT 2 VW Radiologist Impression IMPRESSION: 1. No large radiopaque renal or ureteral region calculi, however the kidneys are partially obscured by the colon. 2. Normal bowel gas pattern. 3. Sleeve gastrectomy denise in the left upper quadrant. EXAMINATION: XR ABDOMEN W DECUB AND OR ERECT 2 VW HISTORY: Female, 27 years old. Acute cystitis with hematuria,Pain. COMPARISON: Abdominal radiographs 06/11/2015, body CT 11/03/2013 FINDINGS: Supine and upright AP views of the abdomen are performed over 3 exposures. Sleeve gastrectomy denise are noted in the left upper quadrant. There is a standard volume of stool throughout the colon. Nondilated small bowel loops are present. No free intraperitoneal gas. No large radiopaque renal or ureteral region calculi, however the kidneys are partially obscured by the colon. Lung bases are clear. IMPRESSION: 1. No large radiopaque renal or ureteral region calculi, however the kidneys are partially obscured by the colon. 2. Normal bowel gas pattern. 3. Sleeve gastrectomy denise in the left upper quadrant. Electronically Signed By: Eric Sandra MD on MonJun 23, 2017 7:58:12 PM Dictated by: ERIC SANDRA MD on MonJun 23, 2017 7:58:12 PM PBX OPERATOR EKG: PROCEDURES Procedures MEDICAL DECISION MAKING AND PLAN OF CARE ED Course MDM I have reviewed current: imaging and labs Labs: UTI per UA Imaging: Negative acute findings; constipation Clinical Course: Constipation AND UTI cipro x 3 days Inc fluid / fiber intake - mag citrate x 1 F/u w/ pcp in 7 days if not improved Medications Administered During the ED Stay from 06/23/2017 1843 to 06/23/2017 2 206 Date/Time Order Dose Route Action 06/23/20171954 ciprofloxacin HCl (CIPRO) tablet 500 mg 500 mg Oral Given 06/23/20171954 ondansetron (ZOFRAN ODT) tablet 4 mg 4 mg Oral Given Discharge Medication List as of 06/23/2017 8:27 PM START taking these medications Details ciprofloxacin HCl (CIPRO) 500 mg tablet Take 1 Tablet (500 mg) by mouth daily fo r 2 days., Disp-2 Tablet, R-0 ondansetron (ZOFRAN ODT) 4 mg Tablet, Rapid Dissolve Take 1 Tablet (4 mg) by gene th every 8 hours as needed for Nausea/Emesis Dissolve tablet on top of tongue, t hen swallow with saliva.., Disp-8 Tablet, R-0 ondansetron (ZOFRAN) 4 mg Tablet Take 1 Tablet (4 mg) by mouth every 8 hours as needed for Nausea., Disp-6 Tablet, R-None CONTINUE these medications which have NOT CHANGED Details clonazePAM (KlonoPIN) 1 mg tablet Take 0.5 Tablets (0.5 mg) by mouth 2 times mohan ly as needed for Anxiety., Disp-60 Tablet, R-1 amphetamine-dextroamphetamine (ADDERALL XR) 10 mg Extended Release 24 hour capsu le Take 1 Capsule (10 mg) by mouth daily intermediate accountant. Max Daily Amount: 10 mg, Disp-30 Capsule, R-0 mupirocin calcium (BACTROBAN) 2 % Cream Apply to affected area 2 times daily for 10 days., Disp-15 Gram, R-1 fluconazole (DIFLUCAN) 150 mg tablet Take 1 Tablet (150 mg) by mouth daily., Dis p-1 Tablet, R-1 cetirizine (ZyrTEC) 10 mg tablet Take 1 Tablet (10 mg) by mouth daily., Disp-30 Tablet, R-2 FLUoxetine (PROzac) 20 mg capsule Take 1 Capsule (20 mg) by mouth daily., Disp-9 0 Capsule, R-1 LAST VS BP: 119/58 (06/23/171906), Heart Rate: 90 bpm (06/23/171906), Resp: 14 (1906), Temp: 98.1 F (36.7 C) (06/23/171906), Temp src: Oral (06/23/17 ), SpO2: 97 % (06/23/17 1907) CLINICAL IMPRESSION Final diagnoses: [N30.01] Acute cystitis with hematuria (Primary) [K59.00] Constipation, unspecified constipation type DISPOSITION, EDUCATION AND MEDICATION RECONCILIATION Medications reconciled. See after visit summary for patient education on discha rged patients. ED Disposition ED Disposition Condition User Date/Time Comment Discharge Stable Richard Martell MD MonJun 23, 2017 8:25 PM ATTESTATION STATEMENTS OPERATOR documented in this encounter Plan of Treatment Not on filedocumented as of this encounter Procedures Comments Procedure Name Priority Date/Time Associated Diag nosis XR ABDOMEN W DECUB AND OR Stat 06/23/2017 ERECT 2 VW 7:53 PM PBX OPERATOR URINALYSIS WITH REFLEX Stat 06/23/2017 CULTURE 7:03 PM PBX OPERATOR URINE CULTURE Stat 06/23/2017 7:03 PM PBX OPERATOR HCG QUALITATIVE, URINE Stat 06/23/2017 7:03 PM PBX OPERATOR documented in this encounter Results * XR ABDOMEN W DECUB AND OR ERECT 2 VW (06/23/2017 7:53 PM PBX OPERATOR) Specimen Impressions Performed At IMPRESSION: INTERFACE SYSTEM 1. No large radiopaque renal or uretera l region calculi, however the kidneys are partially obscured by the c olon. 2. Normal bowel gas pattern. 3. Sleeve gastrectomy denise in the le ft upper quadrant. Narrative Performed At EXAMINATION: XR ABDOMEN W DECUB AND OR ERECT 2 VW IN TERCE SYSTEM HISTORY: Female, 27 years old. Acute cy stitis with hematuria,Pain. COMPARISON: Abdominal radiographs 016, body CT 11/03/2013 FINDINGS: Supine and upright AP views o f the abdomen are performed over [address] aples are noted in the left upper quadrant. There is a standard vol ume of stool throughout the colon. Nondilated small bowel loops are present. No free intraperitoneal gas. No large radiopaqu e renal or ureteral region calculi, however the kidneys are partia lly obscured by the colon. Lung bases are clear. Procedure Note Interface, [facility] Incoming Radiology Results - 06/23/2017 7:58 PM PBX OPERATOR EXAMINATION: XR ABDOMEN W DECUB AND OR ERECT 2 VW HISTORY: Female, 27 years old. Acute cystitis with hematuria,Pain. COMPARISON: Abdominal radiographs 06/11/2015, body CT 11/03/2013 FINDINGS: Supine and upright AP views of the abdomen are performed over 3 exposures. Sleeve gastrectomy denise are noted in the left upper quadrant. There is a standard volume of stool throughout the colon. Nondilated small bowel loops are present. No free intraperitoneal gas. No large radiopaque renal or ureteral region calculi, however the kidneys are partially obscured by the colon. Lung bases are clear. IMPRESSION: 1. No large radiopaque renal or ureteral region calculi, however the kidneys are partially obscured by the colon. 2. Normal bowel gas pattern. 3. Sleeve gastrectomy denise in the lef t upper quadrant. Performing Organization Address [facility] one Number INTERFACE SYSTEM INTERFACE SYSTEM Refer to clinic/hospital department * URINE CULTURE (06/23/2017 7:03 PM PBX OPERATOR) Specimen Urine - Urine specimen obtained by clean catch procedure (specimen) Narrative Performed At [facility] See scanned report, performed by Ti Mishra. GEGE OLIVER Performing Organization Address [facility] one Number [facility] CLIA# [id number] [place], [place] [address] * HCG QUALITATIVE, URINE (06/23/2017 7:03 PM PBX OPERATOR) Pathologist [facility] HCG QUAL URINE Negative Negative [facility] - [place] COLOR UA Yellow Pale to dark yellow [facility] - [place] CLARITY UA Cloudy (A) Clear [facility] [place] Specimen Urine - Urine specimen obtained by clean catch procedure (specimen) Performing Organization Address [facility] one Number [facility] CLIA# [id number] [place] [address] - [place] OL[place] [address] [place] [address] * URINALYSIS WITH REFLEX CULTURE (06/23/2017 7:03 PM PBX OPERATOR) COLOR UA Yellow Pale to dark yellow [facility] - [place] CLARITY UA Cloudy (A) Clear [facility] - [place] SPECIFIC 1.025 1.003 - 1.035 MERC GRAVITY [facility]A LABORATORY SERVICES - [place] PH UA 5.5 5.0 - 8.0 [facility] - [place] LEUKOCYTE 3+ (A) Negative [facility] ESTERASE [facility] - [place] NITRITE UA Positive (A) Negative [facility] - [facility] PROTEIN UA 1+ (A) Negative [facility] - [facility] GLUCOSE UA Negative Negative [facility] - [facility] KETONES UA Negative Negative [facility] SERVICES - [facility] [place] UROBILINOGEN UA <2.0 <2.0 mg/dL [facility] - [place] BILIRUBIN UA Negative Negative [facility] - [facility] BLOOD UA Trace (A) Negative [facility] Comment: LABORATORY For patients with SERVICES - [facility] 'trace' results, ilia [place] ordering a culture and sensitivity if clinically indicated. WBC UA 26-50 (A) 0 - 2 /hpf [facility] - [place] RBC UA 3-5 (A) 0 - 2 /hpf [facility] SERVICES - [facility] [place] BACTERIA UA 4+ (A) Negative /hpf [facility] SERVICES - [facility] [place] EPITHELIAL 6-10 (A) 0 - 5 /hpf [facility] CELLS, URINE LABORATORY SERVICES - [place] COMMENT, URINE Mucous: Many [facility] - [place] Specimen Urine - Urine specimen obtained by clean catch procedure (specimen) Narrative Performed At Based on results, a urine culture has been reflexed. [facility] - [place] Performing Organization Address City/State/Zipcode Ph one Number [facility] CLIA# [id number] [place] [address] - [place] [address] [place] [address] documented in this encounter Visit Diagnoses Diagnosis Acute cystitis with hematuria - Primary Acute cystitis Constipation, unspecified constipation type documented in this encounter Administered Medications Action Date Dose Rate Site Medication Order MAR Action 06/23/2017 7:55 PM PBX OPERATOR 500 mg ciprofloxacin HCl (CIPRO) tablet 500 mg Given 500 mg, Oral, EVERY 12 HOURS (BlD), First dose on Mon06/23/17 at 1945, Unti l Discontinued, Routine, Antibiotic Indication: Urinary Tract Infection(UTI ) / Infection 06/23/2017 7:55 PM PBX OPERATOR 4 mg ondansetron (ZOFRAN ODT) tablet 4 mg Given 4 mg, Oral, ONE TIME ONLY, 1 dose, Mon06/23/17 at 1945, Routine documented in this encounter
--- OUTSIDE RECORDS SUMMARY | 2019-09-21 04:04 | XMS REPORT | Encounter Summary ---
Author Author [facility] Organization [facility] Address Unknown Phone Unavailable Care Team Providers Care Manager Pediatric Name Role Phone Emelia Caldwell MD PCP Unavailable Reason for Visit * Reason Comments symptom question Encounter Details Care Team Description Date Type Department Mayra Bermudez APRN NO ADDRESS ON FILE symptom question 07/07/[address] [employer] [address] [phone] Social History Date Tobacco Use Types Packs/Day [...] encounter Miscellaneous Notes * Telephone Encounter - Aquiles Conn - 07/07/2017 6:05 PM CARDIAC CATH TECHNICIAN Called patient to ask per Mayra if patient had nipple discharge. Patient replie s yes and was then transferred to [facility] to schedule appt with Mayra. IAC CATH TECHNICIAN documented in this encounter Plan of Treatment Not on filedocumented as of this encounter Visit Diagnoses Not on filedocumented in this encounter
--- OUTSIDE RECORDS SUMMARY | 2019-09-21 04:04 | XMS REPORT | Encounter Summary ---
Author Author [facility] Organization [facility] Address Unknown Phone Unavailable Care Team Providers Care Chief Operator Hydroformer Name Role Phone Emelia Caldwell MD PCP Unavailable Reason for Visit * Reason Comments Cough x 3 days/ nonproductive cou gh and congestion/ chest ponce Ear Pain x 3 days/ bilateral ear danny n Sinus Pain x 3 days/ headaches/ ear pa in/ nasal congestion/ drainage Encounter Details Care Team Description Date Type Department [facility] RISK CONTROL MANA[place] [address] [address] Acute suppurative otitis media of right ear without spontaneous rupture of tympanic membrane, recurrence not specified (Primary Dx) 08/16/2017 Office Visit [facility] [address] [place] [address] Social History Date Tobacco Use [...] Signs Reading Time Taken Comments Vital Sign 128/64 08/16/2017 1:49 PM CDT Blood Pressure 81 08/16/2017 1:49 PM CDT Pulse 37.1 C (98.7 F) 08/16/2017 1:49 PM CDT Temperature - - Respiratory Rate 99% 08/16/2017 1:49 PM CDT Oxygen Saturation - - Inhaled Oxygen Concentration 90.7 kg (200 lb) 08/16/2017 1:49 PM CDT Weight 154.9 cm (5' 1") 08/16/2017 1:49 PM CDT Height 37.79 08/16/2017 1:49 PM CDT Body Mass Index documented in this encounter Progress Notes * Donna Bailey, RISK CONTROL MANAGER - 08/16/2017 2:11 PM CDT HISTORY OF PRESENT ILLNESS Opal Trimble, a 27 y.o. female presents with a Chief Complaint of Cough ( x 3 days/ nonproductive cough and congestion/ chest ponce); Ear Pain (x 3 days/ bilateral ear pain); and Sinus Pain (x 3 days/ headaches/ ear pain/ nasal conges tion/ drainage) Subjective HPI Cough and congestion for three days. Non smoker. Hx of seasonal allergies. Takes daily zyrtec. No fever REVIEW OF SYSTEMS Review of Systems Constitutional: Negative for fever. HENT: Positive for congestion, sinus pain, sinus pressure and sore throat. Respiratory: Positive for cough. Cardiovascular: Negative. Gastrointestinal: Negative. Skin: Negative. Objective PHYSICAL EXAM BP 128/64 | Pulse 81 | Temp 98.7 F (37.1 C) (Tympanic) | Ht 5' 1" (1.549 m) | Wt 90.7 kg (200 lb) | LMP 07/16/2017 | SpO2 99% | BMI 37.79 kg/m Physical Exam Constitutional: She appears well-developed and well-nourished. Non-toxic appear ance. No distress. HENT: Head: Normocephalic. Right Ear: Tympanic membrane is injected and erythematous. Left Ear: External ear normal. A middle ear effusion is present. Nose: Mucosal edema present. Right sinus exhibits no frontal sinus tenderness. L eft sinus exhibits no maxillary sinus tenderness and no frontal sinus tenderness . Mouth/Throat: Uvula is midline. Posterior oropharyngeal erythema present. No pos terior oropharyngeal edema. Neck: Normal range of motion. Neck supple. Cardiovascular: Normal rate and regular rhythm. Pulmonary/Chest: Effort normal. She has no wheezes. She has no rhonchi. She has no rales. Lymphadenopathy: Head (right side): No submental, no submandibular, no tonsillar, no preauri cular, no posterior auricular and no occipital adenopathy present. Head (left side): No submental, no submandibular, no tonsillar, no preauric ular, no posterior auricular and no occipital adenopathy present. She has no cervical adenopathy. Neurological: She is alert. Psychiatric: She has a normal mood and affect. Her speech is normal. Procedures Assessment Right otitis media Viral uri ASSESSMENT and PLAN: ICD-10-CM ICD-9-CM 1. Acute suppurative otitis media of right ear without spontaneous rupture of ty mpanic membrane, recurrence not specified H66.001 382.00 azithromycin (ZITHROMAX ) 250 mg tablet rx per order Continue with daily allergy tx as previously indicated Push fluids Tylenol or ibuprofen PRN F/u with PCP PRN or sooner if worsen or fail to improve documented in this encounter Plan of Treatment Not on filedocumented as of this encounter Visit Diagnoses Diagnosis Acute suppurative otitis media of right ear without spontaneous rupture of tympanic membrane, recurrence not specified - Primary documented in this encounter
--- OUTSIDE RECORDS SUMMARY | 2019-09-21 04:04 | XMS REPORT | Encounter Summary ---
Author Author [facility] Organization [facility] Address Unknown Phone Unavailable Care Team Providers Care Brooch And Bracelet Maker Name Role Phone Emelia Caldwell MD PCP Unavailable Reason for Visit * Reason Comments Medication Refill Encounter Details Care Team Description Date Type Department Mayra Bermudez APRN NO ADDRESS ON FILE Anxiety state 08/12/2017 Refill [facility] [address] [phone] Social History Date Tobacco Use [...]
--- OUTSIDE RECORDS SUMMARY | 2019-09-21 04:04 | XMS REPORT | Encounter Summary ---
Author Author [facility] Organization [facility] Address Unknown Phone Unavailable Care Team Providers Care Continuous Churn Buttermaker Name Role Phone Emelia Caldwell MD PCP Unavailable Reason for Referral * Outpatient Services (Routine) Referred By Contact Referred To Contact Status Reason Specialty Diagnoses / Procedures Mayra Bermudez APRN NO ADDRESS ON FILE Closed Diagnoses Breast skin changes P rocedures MAMMO BREAST US LEFT LTD US BREAST UNI LEFT COMPLETE Reason for Visit * Reason Comments Ear Pain both ears Yeast Infection Insect Bite to left breast Encounter Details Care Team Description Date Type Department Mayra Bermudez APRN NO ADDRESS ON FILE Breast skin changes (Primary Dx); Attention deficit hyperactivity disorder (ADHD), combined type; Ear pain, bilateral; Skin lesion; Attention deficit disorder (ADD) in adult; Acute vaginitis 06/20/2017 Office Visit [address] [phone] Social History Date Tobacco Use Types Packs/Day [...] Signs Reading Time Taken Comments Vital Sign 102/60 06/20/2017 1:[address] PROJECT MANAGER Blood Pressure 82 06/20/2017 1:[address] PROJECT MANAGER Pulse 36.6 C (97.9 F) 06/20/2017 1:[address] PROJECT MANAGER Temperature 18 06/20/2017 1:[address] PROJECT MANAGER Respiratory Rate 99% 06/20/2017 1:[address] PROJECT MANAGER Oxygen Saturation - - Inhaled Oxygen Concentration 96.2 kg (212 lb) 06/20/2017 1:[address] PROJECT MANAGER Weight 158.8 cm (5' 2.5") 06/20/2017 1:[address] PROJECT MANAGER Height 38.16 06/20/2017 1:[address] PROJECT MANAGER Body Mass Index documented in this encounter Progress Notes * Mayra Bermudez, AZEEM - 06/20/2017 1:[address] PROJECT MANAGER HISTORY OF PRESENT ILLNESS Opal Trimble, a 27 y.o. female presents with a Chief Complaint of Ear Noemy n (both ears); Yeast Infection; and Insect Bite (to left breast) Subjective HPI Comes in with a list of complaints. Needs her Adderall refilled. Has a yeast infection that started about 1 1/2 weeks ago with white discharge an d odor without itching Has dimpling of the left breast Has a spider but under the left breast Is concerned about an adrenal tumor that she did not have follow-up on and is wa nting to go back to the location analyst for further evaluation. Has drainage from the ears with pain. REVIEW OF SYSTEMS Review of Systems HENT: Positive for ear discharge and ear pain. Genitourinary: Positive for vaginal discharge. Skin: Positive for rash. Psychiatric/Behavioral: Positive for decreased concentration. The patient is ner vous/anxious. Objective PHYSICAL EXAM BP 102/60 (BP Location: Left arm, Patient Position (BP): Sitting, BP Cuff Size: Large Adult) | Pulse 82 | Temp 97.9 F (36.6 C) (Temporal) | Resp 18 | Ht 5' 2.5" (1.588 m) | Wt 96.2 kg (212 lb) | LMP 05/27/2017 (Approximate) | SpO2 99% | BMI 38.16 kg/m Physical Exam Constitutional: She appears well-developed and well-nourished. No distress. HENT: Head: Normocephalic. Right Ear: External ear normal. Left Ear: External ear normal. Mouth/Throat: No oropharyngeal exudate. Genitourinary: Genitourinary Comments: Breasts examined with her sitting, lying and with arms e xtended above the head. She has marked tenderness of both breasts lateral aspec t. No nipple discharge. No lymph node enlargement. The left breast has a dimp ling at about the 5 o'clock position. No color changes noted. Under the left br east medially, there is a thickened papule without vesicle, drainage or pain. N othing to culture. 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 External genitalia appears to be wnl. Speculum exam reveals white thick adheren t discharge. Wet prep obtained. Budding yeast, no hyphae, no clue, no trich/hp f Skin: Skin is warm and dry. She is not diaphoretic. There is a blanchable rash on the arms. Primarily the right. No vesicles, no pu stules, macular and pale red in color. (She does itch all the time). Psychiatric: She has a normal mood and affect. Nursing note and vitals reviewed. Assessment ASSESSMENT and PLAN: ICD-10-CM ICD-9-CM 1. Breast skin changes R23.4 782.8 US BREAST UNI LEFT COMPLETE 2. Attention deficit hyperactivity disorder (ADHD), combined type F90.2 314.01 3. Ear pain, bilateral H92.03 388.70 4. Skin lesion L98.9 709.9 5. Attention deficit disorder (ADD) in adult F98.8 314.00 amphetamine-dextroamph etamine (ADDERALL XR) 10 mg Extended Release 24 hour capsule 6. Acute vaginitis N76.0 616.10 fluconazole (DIFLUCAN) 150 mg tablet POC VAGINAL WET PREP Bactroban bid for the lesion under the left breast and diflucan 150mg single dos e for the yeast. Will get US of the left breast Refilled the Adderall She will get in with the location analyst for surveillance of the adrenal tumor w dejuanh was diagnosed in May of 2014. She doesn't want to know if it is spread ing. She will discuss the pruritic rash over the body with her location analyst. Note given for work today. Return as needed. PROJECT MANAGER documented in this encounter Plan of Treatment Order Schedule Name Type Priority Associated Diag noses Ordered: 06/20/2017 POC VAGINAL WET PREP Point of Care Routine Acute vag initis Testing documented as of this encounter Results * MAMMO BREAST US LEFT LTD (06/23/2017 8:[address] PROJECT MANAGER) Specimen Narrative Performed At History: Left breast [...] encounter Visit Diagnoses Diagnosis Breast skin changes - Primary Changes in skin texture Attention deficit hyperactivity disorde r (ADHD), combined type Ear pain, bilateral Skin lesion Unspecified disorder of skin and subcut aneous tissue Attention deficit disorder (ADD) in bam lt Acute vaginitis Vaginitis and vulvovaginitis, unspecifi ed documented in this encounter
--- OUTSIDE RECORDS SUMMARY | 2019-09-21 04:04 | XMS REPORT | Encounter Summary ---
Author Author [facility] Organization [facility] Address Unknown Phone Unavailable Care Team Providers Care Heavy Forger Helper Name Role Phone Emelia Caldwell MD PCP Unavailable Reason for Visit * Reason Comments Medication Refill Encounter Details Care Team Description Date Type Department Emelia Caldwell MD NO ADDRESS ON FILE Medication Refill 07/24/2017 [address] [facility] [phone] Social History Date Tobacco Use Types Packs/Day [...]
--- OUTSIDE RECORDS SUMMARY | 2019-09-21 04:04 | XMS REPORT | Encounter Summary ---
Author Author [facility] Organization [facility] Address Unknown Phone Unavailable Care Team Providers Care Substance Abuse Clinician Name Role Phone Emelia Caldwell MD PCP Unavailable Reason for Visit * Reason Comments Medication Reaction Encounter Details Care Team Description Date Type Department Rachel Beavers welt rougher Reaction 05/04/[address] [phone] Social History Date Tobacco Use [...] as of this encounter Miscellaneous Notes * Addendum Note - Rachel Beavers RN - 05/04/2017 3:54 PM TRANSITIONAL NURSE Addended by: RACHEL BEAVERS on: 05/04/2017 03:54 PM Modules accepted: Orders SITIONAL NURSE * Telephone Encounter - Rachel Beavers RN - 05/04/2017 3:50 PM TRANSITIONAL NURSE Pt states that she has taken prednisone several times without reaction. Dr. Caldwell advises at this time to just stay on the Prednisone, do not add a new abx and mo nitor for symptom improvement. Pt to call back on Monday if she's not improvin g. SITIONAL NURSE * Telephone Encounter - Rachel Beavers RN - 05/04/2017 2:49 PM TRANSITIONAL NURSE Emelia Caldwell MD Seested, Lyndsey R RN Caller: Unspecified (Today, 8:50 AM) She was also given Prednisone. Her swollen face could be in reaction to that. Could she stop by? (No charge, just stop by). SITIONAL NURSE * Telephone Encounter - Rachel Beavers RN - 05/04/2017 8:49 AM TRANSITIONAL NURSE Pt called and states that she was given Augmentin yesterday in urgent care for a cough, sore throat. She woke up this AM with hives and a swollen face. Will add Augmentin to her allergy list. She would like to know if we can call something else in. SITIONAL NURSE documented in this encounter Plan of Treatment Not on filedocumented as of this encounter Visit Diagnoses Not on filedocumented in this encounter
--- OUTSIDE RECORDS SUMMARY | 2019-09-21 04:05 | XMS REPORT | Encounter Summary ---
Author Author [facility] Organization [facility] Address Unknown Phone Unavailable Care Team Providers Care Ballet Company Artistic Director Name Role Phone Jeniffer Tamayo MD PCP Reason for Visit * Reason Comments Medication Refill Encounter Details Care Team Description Date Type Department Jeniffer Tamayo MD [address] [place] [phone] 06/30/2016 Refill [facility] Primar y Care [address] [phone] Social History Date Tobacco Use Types Packs/Day Years Used Current Some Day Smoker Cigarettes 0.5 5 Smokeless Tobacco: Never Used Drinks/Week oz/Week Comments Alcohol Use 0 Standard drinks or equivalent 0.0 drinks on weekends Yes Sex Assigned at Date Recorded Not [...]
--- OUTSIDE RECORDS SUMMARY | 2019-09-21 04:05 | XMS REPORT | Encounter Summary ---
Author Author [facility] Organization [facility] Address Unknown Phone Unavailable Care Team Providers Care Utility Maintenance Worker Name Role Phone Emelia Caldwell MD PCP Unavailable Reason for Visit * Reason Comments Follow Up Encounter Details Care Team Description Date Type Department Mayra Bermudez APRN NO ADDRESS ON FILE Anxiety state (Primary Dx); Attention deficit disorder (ADD) in adult; Class 3 obesity due to excess calories with body mass index (BMI) of 40.0 to 44.9 in adult, unspecified whether serious comorbidity present; Seasonal allergic conjunctivitis 04/13/2017 Office Visit [facility] [address] [phone] Social History Date Tobacco Use [...] Signs Reading Time Taken Comments Vital Sign 120/82 04/13/2017 4:42 PM JOURNEYMAN PIPE FITTER Blood Pressure 92 04/13/2017 4:42 PM JOURNEYMAN PIPE FITTER Pulse 36.7 C (98 F) 04/13/2017 4:42 PM JOURNEYMAN PIPE FITTER Temperature - - Respiratory Rate 95% 04/13/2017 4:42 PM JOURNEYMAN PIPE FITTER Oxygen Saturation - - Inhaled Oxygen Concentration 95.3 kg (210 lb) 04/13/2017 4:42 PM JOURNEYMAN PIPE FITTER Weight 152.4 cm (5') 04/13/2017 4:42 PM JOURNEYMAN PIPE FITTER Height 41.01 04/13/2017 4:42 PM JOURNEYMAN PIPE FITTER Body Mass Index documented in this encounter Progress Notes * Mayra Bermudez, REVERBERATORY FURNACE SUPERVISOR - 04/13/2017 4:57 PM JOURNEYMAN PIPE FITTER HISTORY OF PRESENT ILLNESS Opal Trimble, a 26 y.o. female presents with a Chief Complaint of Follow Up Subjective HPI Comes in for follow-up of being started on Klonopin, Adderall and Prozac. State s that she is doing well except feels like her anxiety is still high and has bee n using the Klonopin about 0.25 more than what was originally prescribed. Also states that she breaks out with store bought antiperspirant and deodorant but pe ople at work are complaining about her body odor. She has tried multiple kinds and made her own from natural oils. States that she breaks out when she uses th em. Her arm pits become sore as a result. REVIEW OF SYSTEMS Review of Systems Objective PHYSICAL EXAM BP 120/82 (BP Location: Right arm, Patient Position (BP): Sitting, BP Cuff Size: Adult) | Pulse 92 | Temp 98 F (36.7 C) (Temporal) | Ht 5' (1.524 m) | Wt 95.3 kg (210 lb) | LMP 02/23/2017 (Approximate) | SpO2 95% | ? No | BMI 41.01 kg/m Physical Exam Lungs clear bilaterally. HR regular without murmur. Much less anxious. Good e ye contact. Axillae are mildly inflamed but does not appear to be affected by t inea. Assessment ASSESSMENT and PLAN: ICD-10-CM ICD-9-CM 1. Anxiety state F41.1 300.00 clonazePAM (KlonoPIN) 1 mg tablet 2. Attention deficit disorder (ADD) in adult F98.8 314.00 amphetamine-dextroamph etamine (ADDERALL XR) 10 mg Extended Release 24 hour capsule 3. Class 3 obesity due to excess calories with body mass index (BMI) of 40.0 to 44.9 in adult, unspecified whether serious comorbidity present E66.09 278.00 LIP ID PANEL Z68.41 V85.41 4. Seasonal allergic conjunctivitis H10.45 372.14 cetirizine (ZyrTEC) 10 mg tabl et 12 hour fast to repeat the TSh and Free T4 and Lipid at that time. Plan to see her back after the lab has been drawn and would like for her to work on eating a little healthier (not out of the vending machine) and to decrease her pop intake and increase her water consumption. Keep the arm pits dry with cotton material (cut up socks with deodorant) as she is unable to use deodorant. She does not want a flu shot. NEYMAN PIPE FITTER documented in this encounter Plan of Treatment Not on filedocumented as of this encounter Visit Diagnoses Diagnosis Anxiety state - Primary Anxiety state, unspecified Attention deficit disorder (ADD) in bam lt Class 3 obesity due to excess calories with body mass index (BMI) of 40.0 to 44.9 in adult, unspecified whether serious comorbidity present Seasonal allergic conjunctivitis Other chronic allergic conjunctivitis documented in this encounter"
--- OUTSIDE RECORDS SUMMARY | 2019-09-21 04:05 | XMS REPORT | Encounter Summary ---
Author Author [facility] Organization [facility] Address Unknown Phone Unavailable Care Team Providers Care Trans Router Name Role Phone Jeniffer Tamayo MD PCP Reason for Visit * Reason Comments Medication Refill Encounter Details Care Team Description Date Type Department Jeniffer Tamayo MD [address] [place] [phone] 11/17/2015 Refill [facility] Primar y Care [address] [phone] Social History Date Tobacco Use [...] encounter Miscellaneous Notes * Telephone Encounter - Nayeli Johnson RN - 11/17/2015 1:54 PM CDT From: Opal Trimble To: Jeniffer Tamayo MD Sent: 11/17/2015 1:47 PM CDT Subject: Medication Renewal Request Original authorizing provider: MD Opal Nuno would like a refill of the following medications: amphetamine-dextroamphetamine (ADDERALL XR) 30 mg Extended Release 24 hour caps ule [Jeniffer Tamayo MD] Preferred pharmacy: [facility] [address] [place], [place] - [address] Comment: documented in this encounter Plan of Treatment Not on filedocumented as of this encounter Visit Diagnoses Not on filedocumented in this encounter
--- OUTSIDE RECORDS SUMMARY | 2019-09-21 04:05 | XMS REPORT | Encounter Summary ---
Author Author [facility] Organization [facility] Address Unknown Phone Unavailable Care Team Providers Care Government Property Inspector Name Role Phone Jeniffer Tamayo MD PCP Reason for Visit * Reason Comments Medication Refill Encounter Details Care Team Description Date Type Department Jeniffer Tamayo MD [address] [place] [phone] 01/15/2016 Refill [facility] Primar y Care [address] [phone] Social History Date Tobacco Use [...] encounter Miscellaneous Notes * Telephone Encounter - Ross Centeno Parveen - 01/15/2016 7:57 AM CDT From: Opal Trimble To: Jeniffer Tamayo MD Sent: 01/14/2016 6:08 PM CDT Subject: Medication Renewal Request Original authorizing provider: MD Opal Nuno would like a refill of the following medications: amphetamine-dextroamphetamine (ADDERALL XR) 30 mg Extended Release 24 hour caps ule [Jeniffer Tamayo MD] Preferred pharmacy: [facility] [address] [place], [place] - [address] Comment: documented in this encounter Plan of Treatment Not on filedocumented as of this encounter Visit Diagnoses Not on filedocumented in this encounter
--- OUTSIDE RECORDS SUMMARY | 2019-09-21 04:05 | XMS REPORT | Encounter Summary ---
Author Author [facility] Organization [facility] Address Unknown Phone Unavailable Care Team Providers Care Premix Operator Concentrate Name Role Phone Jeniffer Tamayo MD PCP Reason for Visit * Reason Comments Abdominal Pain diarrhea/nausea * Auth/Cert Referred By Contact Referred To Contact Status Reason Specialty Diagnoses / Procedures [facility] Emergency [address] [place] [address] Emergency Medicine Encounter Details Care Team Description Date Type Department Acute cystitis without hemat uria (Primary Dx); Nausea 03/01/2016 Emergency [facility] Emergency Department [address] [address] Social History Date Tobacco Use [...] Signs Reading Time Taken Comments Vital Sign 128/74 03/01/2016 7:22 PM CDT Blood Pressure - - Pulse 35.6 C (96 F) 03/01/2016 7:22 PM CDT Temperature 15 03/01/2016 7:22 PM CDT Respiratory Rate 98% 03/01/2016 7:22 PM CDT Oxygen Saturation - - Inhaled Oxygen Concentration 89.8 kg (198 lb) 03/01/2016 7:22 PM CDT Weight 152.4 cm (5') 03/01/2016 7:22 PM CDT Height 38.67 03/01/2016 7:22 PM CDT Body Mass Index documented in this encounter Discharge Instructions * Attachments The following attachments cannot be sent through Care Everywhere.* UTI (URINARY TRACT INFECTION): FEMALE (MALIAN) documented in this encounter Medications at Time of Discharge Start Date End Date Medication Sig Dispensed Refills 03/01/2016 03/11/2016 cefdinir (OMNICEF) 300 mg Take 1 20 Capsule 0 capsule Capsule (300 mg) by mouth every 12 hours for 10 days. 03/01/2016 03/11/2016 famotidine (PEPCID) 20 mg Take 1 Tablet 20 Tablet 0 tablet (20 mg) by mouth 2 times daily for 10 days. 02/25/2016 05/26/2016 amphetamine-dextroampheta Take 1 30 Capsule 0 mine (ADDERALL XR) 30 mg Capsule (30 Extended Release 24 hour mg) by mouth capsule daily supervisor powder and primer canning. 10/27/2015 05/13/2016 FLUoxetine (PROZAC) 20 mg Take 1 Tablet 30 Tablet 5 tablet (20 mg) by mouth daily. 10/27/2015 04/17/2016 clonazePAM (KLONOPIN) 0.5 Take 1 Tablet 60 Tablet 5 mg Tablet (0.5 mg) by mouth 2 times daily as needed for Anxiety. documented as of this encounter ED Notes * Marlyn Groves APRN - 03/01/2016 7:43 PM CDT HISTORY OF PRESENT ILLNESS Opal Trimble, a 25 y.o. female presents to the ED with a Chief Complaint of Abdominal Pain Subjective HPI Comments: N/v/d the last 4 days, improved now, abdominal pain today right si de Nausea peristent, no vomiting 2 days Feels dry, taking a bunch of cleocin she had for tooth thinking would make her b chloe History provided by: The patient Abdominal Pain Pain location: R flank Associated symptoms: diarrhea (resolved), fatigue, fever (101 several days ago, resolved currently), nausea and vomiting (resolved) Associated symptoms: no cough and no shortness of breath REVIEW OF SYSTEMS Review of Systems Constitutional: Positive for fever (101 several days ago, resolved currently) an d fatigue. Respiratory: Negative for cough and shortness of breath. Gastrointestinal: Positive for nausea, vomiting (resolved), abdominal pain and d iarrhea (resolved). PAST MEDICAL HISTORY REVIEWED MEDICAL: Patient has a past medical history of ADD (attention deficit disorder with hype ractivity); Obesity (BMI 30.0-39.9) (2008); Depression; and Insomnia. She also h as no past medical history of Obstructive sleep apnea (adult) (pediatric), Injur y of back, Temporomandibular joint disorders, unspecified, Difficult intubation, Acute venous embolism and thrombosis of unspecified deep vessels of lower extre mity, Injury of face and neck, Unspecified adverse effect of anesthesia, Chest p ain, Malignant hyperthermia, or Latex sensitivity. SURGICAL: Patient has past surgical history that includes section (12/2005); pablo agustín bypass (01/11/12); hysteroscopy,dx,sep proc (05/15/2012); dilation/curettage,d iagnostic (05/15/2012); and exploratory of abdomen (11/03/2013). FAMILY: Patient's family history includes Cancer in her paternal grandfather. There is n o history of Breast Cancer. SOCIAL: reports that she has been smoking Cigarettes. She has a 2.5 pack-year smoking history. She has never used smokeless tobacco. She reports that she drinks alcoh ol. She reports that she uses illicit drugs (Marijuana). She reports that she cu rrently engages in sexual activity and has had male partners. She reports using the following method of control/protection: None. No [...] use on her problem list. ALLERGIES Poppyseed oil and Sulfa (sulfonamide antibiotics) HOME MEDICATIONS Patient's Home Medications Current Home Medications AMPHETAMINE-DEXTROAMPHETAMINE (ADDERALL XR) 30 MG EXTENDED RELEASE 24 HOUR CAPS ULE CLONAZEPAM (KLONOPIN) 0.5 MG TABLET FLUOXETINE (PROZAC) 20 MG TABLET IBUPROFEN (MOTRIN) 600 MG TABLET Medications Modified during this Encounter Medications Discontinued during this Encounter AMITRIPTYLINE (ELAVIL) 25 MG TABLET FLUCONAZOLE (DIFLUCAN) 150 MG TABLET FLUCONAZOLE (DIFLUCAN) 150 MG TABLET GABAPENTIN (NEURONTIN) 300 MG CAPSULE HYDROXYZINE HCL (ATARAX) 25 MG TABLET Objective PHYSICAL EXAM INITIAL VS BP: 128/74 mmHg (03/01/161921), Heart Rate: 98 bpm (03/01/161921), Resp: 15 (1 1921), Temp: (!) 96 F (35.6 C) (03/01/161921), Temp src: Tympanic ( 03/01/161921), SpO2: 98 % (03/01/161921), Height: 5' (152.4 cm) (03/01/161921 ), Weight: 89.812 kg (198 lb) (03/01/161921), BMI (Calculated): 38.75 (03/01/161921) No LMP recorded. Physical Exam Constitutional: She is oriented to person, place, and time. She appears well-dev eloped and well-nourished. HENT: Head: Normocephalic and atraumatic. Nose: Nose normal. Mouth/Throat: Oropharynx is clear and moist. Eyes: Pupils are equal, round, and reactive to light. Neck: Normal range of motion. Neck supple. Cardiovascular: Normal rate, regular rhythm, normal heart sounds and intact dist al pulses. No murmur heard. Pulmonary/Chest: Effort normal and breath sounds normal. No respiratory distress . Abdominal: Soft. Bowel sounds are normal. There is tenderness (right flank). Musculoskeletal: Normal range of motion. She exhibits no edema. Lymphadenopathy: She has no cervical adenopathy. Neurological: She is alert and oriented to person, place, and time. Skin: Skin is warm and dry. Psychiatric: She has a normal mood and affect. Her behavior is normal. DIAGNOSTICS LAB: Labs this ED Encounter URINALYSIS WITH REFLEX CULTURE - Abnormal CLARITY UA Cloudy (*) LEUKOCYTE ESTERASE UA Trace (*) PROTEIN UA Trace (*) BLOOD UA 1+ (*) WBC UA 3-5 (*) BACTERIA UA 2+ (*) EPITHELIAL CELLS, URINE 6-10 (*) CALCIUM OXALATE, URINE Present (*) COLOR UA Yellow SPECIFIC GRAVITY UA 1.020 PH UA 6.0 NITRITE UA Negative GLUCOSE UA Negative KETONES UA Negative UROBILINOGEN UA <2.0 BILIRUBIN UA Negative RBC UA 0-2 COMMENT, URINE Mucous: Few HCG QUALITATIVE, URINE - Abnormal CLARITY UA Cloudy (*) HCG QUAL URINE Negative COLOR UA Yellow CBC WITH DIFFERENTIAL - Abnormal RBC 3.73 (*) HEMOGLOBIN 11.8 (*) HEMATOCRIT 34.0 (*) WBC 7.1 MCV 91.2 MCH 31.6 MCHC 34.7 RDW 13.2 PLATELETS 263 MPV 7.6 NEUTROPHILS 67 LYMPHOCYTES 25 MONOCYTES 6 EOSINOPHILS 2 BASOPHILS 1 NEUTROPHIL ABSOLUTE 4.75 LYMPHOCYTE ABSOLUTE 1.79 MONOCYTE ABSOLUTE 0.42 EOSINOPHIL ABSOLUTE 0.13 BASOPHILS ABSOLUTE 0.05 BASIC METABOLIC PANEL - Abnormal CALCIUM 8.4 (*) SODIUM 140 POTASSIUM 3.6 CHLORIDE 102 CO2 23 BUN 10 CREATININE 0.76 GLUCOSE 95 GFR >60 GFR, >60 ANION GAP 15 RADIOLOGY: No orders to display EKG: PROCEDURES Procedures MEDICAL DECISION MAKING AND PLAN OF CARE Labs reassuring, no acute abdominal signs Cleocin likely upset stomach, d/c this, does not cover urine well urine with similar findings in past have had significant growth Cover with rocephin here home on oral abt pepcid Bid x 7d and zofran prn Primary concerns, worsening, routine follow up REEVALUATION CASE DISCUSSED Medications Administered During the ED Stay from 03/01/2016 1816 to 03/01/2016 2 030 Date/Time Order Dose Route Action 03/01/20161953 ondansetron (ZOFRAN) 4 mg/2 mL injection 4 mg 4 mg IV Given 03/01/20161954 cefTRIAXone (ROCEPHIN) IVPB 1,000 mg 1,000 mg IV New Bag 03/01/20161944 sodium chloride 0.9% bolus solution 1,000 mL 1,000 mL IV New B ag . New Prescriptions for this Encounter CEFDINIR (OMNICEF) 300 MG CAPSULE Take 1 Capsule (300 mg) by mouth every 12 hours for 10 days. FAMOTIDINE (PEPCID) 20 MG TABLET Take 1 Tablet (20 mg) by mouth 2 times rhonda y for 10 days. ONDANSETRON (ZOFRAN ODT) 8 MG TABLET, RAPID DISSOLVE Take 1 Tablet (8 mg) by mouth every 8 hours as needed for Nausea. LAST VS BP: 128/74 mmHg (03/01/161921), Heart Rate: 98 bpm (03/01/161921), Resp: 15 (1 1921), Temp: (!) 96 F (35.6 C) (03/01/161921), Temp src: Tympanic ( 03/01/161921), SpO2: 98 % (03/01/161921) CLINICAL IMPRESSION Final diagnoses: [N30.00] Acute cystitis without hematuria (Primary) [R11.0] Nausea CODING Coding DISPOSITION, EDUCATION AND MEDICATION RECONCILIATION Medications reconciled. See after visit summary for patient education on discha rged patients. ATTESTATION STATEMENTS * Renee Medina RN - 03/01/2016 7:27 PM CDT Pt states she has had abdominal/right flank pain for 2 days, has had nausea and diarrhea, pt states she has not been voiding much and urine is dark with odor. documented in this encounter Plan of Treatment Not on filedocumented as of this encounter Procedures Comments Procedure Name Priority Date/Time Associated Diag nosis CBC WITH DIFFERENTIAL Stat 03/01/2016 7:55 PM CDT BASIC METABOLIC PANEL Stat 03/01/2016 7:55 PM CDT URINALYSIS WITH REFLEX Stat 03/01/2016 CULTURE 7:15 PM CDT HCG QUALITATIVE, URINE Stat 03/01/2016 7:15 PM CDT documented in this encounter Results * BASIC METABOLIC PANEL (03/01/2016 7:55 PM CDT) SODIUM 140 136 - 145 mmol/L [facility] POTASSIUM 3.6 3.5 - 5.1 mmol/L [facility] CHLORIDE 102 98 - 107 mmol/L [facility] CO2 23 22 - 29 mmol/L [facility] CALCIUM 8.4 (L) 8.6 - 10.0 mg/dL [facility] BUN 10 6 - 20 mg/dL [facility] CREATININE 0.76 0.51 - 0.95 mg/dL [facility] - [place] GLUCOSE 95 70 - 100 mg/dL [facility] - [place] GFR >60 >=60 mL/min/1.73 sq [facility] Comment: meter LABORATORY eGFR has not been validated SERVICES [facility] for use in the elderly (> [...] result. GFR, >60 >=60 mL/min/1.73 sq [facility] [place] meter LABORATORY SERVICES - [place] ANION GAP 15 4 - 20 mmol/L [facility] LABORATORY [facility] [place] Specimen Blood Performing Organization Address City/State/[facility] Ph one Number [facility] CLIA# [id number] [place] [address] - [place] [address] [facility] * CBC WITH DIFFERENTIAL (03/01/2016 7:55 PM CDT) WBC 7.1 2.9 - 11.0 K/uL [facility] - [place] RBC 3.73 (L) 3.77 - 5.57 M/uL [facility] - [place] HEMOGLOBIN 11.8 (L) 11.9 - 16.3 g/dL [facility] - [place] HEMATOCRIT 34.0 (L) 34.4 - 51.6 % [facility] - [place] MCV 91.2 82.4 - 103.2 fL [facility] - [place] MCH 31.6 26.2 - 32.6 pg [facility] - [place] MCHC 34.7 30.2 - 35.0 g/dL [facility] - [place] RDW 13.2 11.1 - 14.5 % [facility] - [place] PLATELETS 263 137 - 410 K/uL [facility] - [place] MPV 7.6 7.4 - 11.9 fL [facility] - [place] NEUTROPHILS 67 43 - 73 % [facility] [place] LYMPHOCYTES 25 19 - 47 % [facility] [place] MONOCYTES 6 3 - 9 % [facility] [place] EOSINOPHILS 2 0 - 6 % [facility] [place] BASOPHILS 1 0 - 1 % [facility] [place] NEUTROPHIL 4.75 1.30 - 7.60 K/uL [facility] [place] LYMPHOCYTE 1.79 0.60 - 4.90 K/uL [facility] [place] MONOCYTE 0.42 0.10 - 0.90 K/uL [facility] [place] EOSINOPHIL 0.13 0.00 - 0.40 K/uL [facility] [place] BASOPHILS 0.05 0.00 - 0.10 K/uL [facility] [place] Specimen Blood Performing Organization Address City/[facility] Ph one Number [facility] CLIA# [id number] [place] [address] - [place] [address] * HCG QUALITATIVE, URINE (03/01/2016 7:15 PM CDT) Pathologist [facility] HCG QUAL URINE Negative Negative [facility] - [place] COLOR UA Yellow Pale to dark yellow [facility] [place] CLARITY UA Cloudy (A) Clear [facility] [place] Specimen Urine - Urine specimen obtained by clean catch procedure (specimen) Performing Organization Address City/[facility]/Replaced By [facility] one [facility] LABORATORY SERVICES CLIA# [id number] [place], [place] [address] - [address] * URINALYSIS WITH REFLEX CULTURE (03/01/2016 7:15 PM CDT) COLOR UA Yellow Pale to dark yellow [facility] [place] CLARITY UA Cloudy (A) Clear [facility] [place] SPECIFIC 1.020 1.003 - 1.035 [facility] GRAVITY UA LAB[facility]ATORY SERVICES - [place] PH UA 6.0 5.0 - 8.0 [facility] [place] LEUKOCYTE Trace (A) Negative [facility] ESTERASE UA Comment: LABORATORY For patients with SERVICES - [facility] 'trace' results, ilia [place] ordering a culture and sensitivity if clinically indicated. NITRITE UA Negative Negative [facility] [place] PROTEIN UA Trace (A) Negative [facility] Comment: LABORATORY For patients with SERVICES - [facility] 'trace' results, ilia [place] ordering a culture and sensitivity if clinically indicated. GLUCOSE UA Negative Negative [facility] - [place] KETONES UA Negative Negative [facility] [place] UROBILINOGEN UA <2.0 <2.0 mg/dL [facility] - [place] BILIRUBIN UA Negative Negative [facility] SERVICES - [facility] [place] BLOOD UA 1+ (A) Negative [facility] SERVICES - [facility] [place] WBC UA 3-5 (A) 0 - 2 /hpf [facility] [place] RBC UA 0-2 0 - 2 /hpf [facility] [place] BACTERIA UA 2+ (A) Negative /hpf [facility] [place] EPITHELIAL 6-10 (A) 0 - 5 /hpf [facility] CELLS, URINE LABORATORY SERVICES - [facility] [place] CALCIUM Present (A)Comment: 3+ Absent [facility] OXALATE, URINE LABORATORY SERVICES - [place] COMMENT, URINE Mucous: Few [facility] [place] Specimen Urine - Urine specimen obtained by clean catch procedure (specimen) Performing Organization Address City/State/[facility] Ph one Number [facility] CLIA# [id number] [place], [place] [address] - [address] documented in this encounter Visit Diagnoses Diagnosis Acute cystitis without hematuria - Prim jerry Acute cystitis Nausea Nausea alone documented in this encounter Administered Medications Action Date Dose Rate Site Medication Order MAR Action 03/01/2016 7:55 PM CDT 1,000 mg cefTRIAXone (ROCEPHIN) IVPB 1,000 mg New Bag 1,000 mg, IV, ONE TIME ONLY, 1 dose, e 03/01/16 at 1945, Routine, Antibiotic Indication: Urinary Tract Infection(UTI ) / Infection 03/01/2016 8:30 PM CDT 20 mg famotidine (PEPCID) tablet 20 mg Given 20 mg, Oral, ONE TIME ONLY, 1 dose, 03/01/16 at 2030, Stat 03/01/2016 7:54 PM CDT 4 mg ondansetron (ZOFRAN) 4 mg/2 mL injection Given 4 mg 4 mg, IV, ONE TIME ONLY, 1 dose, 03/01/16 at 1945, Routine 03/01/2016 8:32 PM CDT 10 mL sodium chloride 0.9 % flush injection 10 Given mL 10 mL, IV, SEE ADMIN INSTRUCTIONS, Starting Mon03/01/16 at 1939, Until 03/01/16 at 2247, Routine 03/01/2016 7:45 PM CDT 1,000 mL 1000 mL/hr sodium chloride 0.9% bolus solution New Bag 1,000 mL 1,000 mL, IV, ONE TIME ONLY, 1 dose, 03/01/16 at 1945, at 1,000 mL/hr, Administer over 60 Minutes, Stat documented in this encounter
--- OUTSIDE RECORDS SUMMARY | 2019-09-21 04:05 | XMS REPORT | Encounter Summary ---
Author Author [facility] Organization [facility] Address Unknown Phone Unavailable Care Team Providers Care Data Warehousing Engineer Name Role Phone Jeniffer Tamayo MD PCP Reason for Visit * Reason Comments Medication Refill Encounter Details Care Team Description Date Type Department Jeniffer Tamayo MD [address] [place] [address] 04/17/2016 Refill [facility] Primar y Care [address] [address] Social History Date Tobacco Use [...]
--- OUTSIDE RECORDS SUMMARY | 2019-09-21 04:05 | XMS REPORT | Encounter Summary ---
Author Author [facility] Organization [facility] Address Unknown Phone Unavailable Care Team Providers Care Bow Stapler Name Role Phone Jeniffer Tamayo MD PCP Reason for Visit * Reason Comments Medication Refill Encounter Details Care Team Description Date Type Department Jeniffer Tamayo MD [address] [place] [address] 05/13/2016 Refill [facility] Primar y Care [address] [address] Social History Date Tobacco Use [...]
--- OUTSIDE RECORDS SUMMARY | 2019-09-21 04:05 | XMS REPORT | Encounter Summary ---
Author Author [facility] Organization [facility] Address Unknown Phone Unavailable Care Team Providers Care Cross Cut Saw Operator Name Role Phone Dexter Wiseman MD PCP Encounter Details Care Team Description Date Type Department Dexter Wiseman MD [address] [place] [address] E-Visit Submission: Vaginal Discharge 12/17/2015 E-Visit [facility] Primar y Care [address] [address] Social History Date Tobacco Use [...] encounter Miscellaneous Notes * Addendum Note - Dexter Wiseman MD - 12/18/2015 2:48 PM CDT Addended by: DEXTER WISEMAN on: 12/18/2015 02:48 PM Modules accepted: Orders documented in this encounter Plan of Treatment Not on filedocumented as of this encounter Visit Diagnoses Diagnosis Vaginal yeast infection - Primary Candidiasis of vulva and vagina Routine general medical examination at a health care facility documented in this encounter
--- OUTSIDE RECORDS SUMMARY | 2019-09-21 04:05 | XMS REPORT | Encounter Summary ---
Author Author [facility] Organization [facility] Address Unknown Phone Unavailable Care Team Providers Care Supervisor Real Estate Office Name Role Phone Jeniffer Tamayo MD PCP Reason for Visit * Reason Comments Medication Refill Encounter Details Care Team Description Date Type Department Jeniffer Tamayo MD [address] [place] [address] 05/26/2016 Refill [facility] Primar y Care [address] [address] Social History Date Tobacco Use [...]
--- OUTSIDE RECORDS SUMMARY | 2019-09-21 04:05 | XMS REPORT | Encounter Summary ---
Author Author [facility] Organization [facility] Address Unknown Phone Unavailable Care Team Providers Care Pipe Tester Name Role Phone Jeniffer Tamayo MD PCP Reason for Visit * Reason Comments Medication Refill Encounter Details Care Team Description Date Type Department Jeniffer Tamayo MD [address] [place] [address] 12/07/2015 Refill [facility] Primar y Care [address] [address] Social History Date Tobacco Use [...] encounter Miscellaneous Notes * Telephone Encounter - Ricky Manrique Trung - 12/07/2015 8:08 AM CDT From: Opal Trimble To: Jeniffer Tamayo MD Sent: 12/07/2015 5:40 AM CDT Subject: Medication Renewal Request Original authorizing provider: MD Opal Nuno would like a refill of the following medications: amphetamine-dextroamphetamine (ADDERALL XR) 30 mg Extended Release 24 hour caps ule [Jeniffer Tamayo MD] Preferred pharmacy: [facility] [address] [place], [place] - [address] [facility] [address] Comment: documented in this encounter Plan of Treatment Not on filedocumented as of this encounter Visit Diagnoses Not on filedocumented in this encounter
--- OUTSIDE RECORDS SUMMARY | 2019-09-21 04:05 | XMS REPORT | Encounter Summary ---
Author Author [facility] Organization [facility] Address Unknown Phone Unavailable Care Team Providers Care V Belt Curer Name Role Phone Emelia Caldwell MD PCP Unavailable Reason for Visit * Reason Comments Needs Form Or Letter Filled Out Encounter Details Care Team Description Date Type Department Cassie Acuna RN Needs Form Or Letter Filled Out 03/21/[address] [address] Social History Date Tobacco Use [...] Telephone Encounter - Cassie Acuna RN - 03/21/2017 11:16 AM MINE SURVEYOR Pa for pts adderall is approved until 03/18/18. Case number is [email or web address] [id number]. Pha rmacy aware. SURVEYOR documented in this encounter Plan of Treatment Not on filedocumented as of this encounter Visit Diagnoses Not on filedocumented in this encounter
--- OUTSIDE RECORDS SUMMARY | 2019-09-21 04:05 | XMS REPORT | Encounter Summary ---
Author Author [facility] Organization [facility] Address Unknown Phone Unavailable Care Team Providers Care Design Engineer Agricultural Equipment Name Role Phone Jeniffer Tamayo MD PCP Reason for Visit * Reason Comments Information Encounter Details Care Team Description Date Type Department Jeniffer Tamayo MD [address] [place] [address] Information 05/06/2016 Telephone [facility] Primar y Care [address] [address] Social History Date Tobacco Use [...] Notes * Telephone Encounter - Ross Centeno - 05/06/2016 1:14 PM BUILDING INSULATION INSTALLER Pt called stating her insurance was going to be running out at the end of the ye ar and she needed to be seen today. I let he know that Dr. Tamayo was monitor car operator and that was something she would need to schedule at her next available but I would check with Dr. Tamayo. Per Dr. Tamayo that was fine to refill her medications but she would need to be seen. I tried calling the pt back several times there is no way to leave a VM. DING INSULATION INSTALLER documented in this encounter Plan of Treatment Not on filedocumented as of this encounter Visit Diagnoses Not on filedocumented in this encounter
--- OUTSIDE RECORDS SUMMARY | 2019-09-21 04:05 | XMS REPORT | Encounter Summary ---
Author Author [facility] Organization [facility] Address Unknown Phone Unavailable Care Team Providers Care Associate Editor Name Role Phone Jeniffer Tamayo MD PCP Reason for Visit * Reason Comments Breast pain bruise to right breast that has gotten bigger in the last few days, denies pain. Encounter Details Care Team Description Date Type Department Alden Sanders MD [address] [place] [address] Bruise of breast (Primary Dx) 09/11/2016 Emergency [facility] Emergency Department [address] [id number] Social History Date Tobacco Use [...] Signs Reading Time Taken Comments Vital Sign 143/85 09/11/2016 2:05 PM CDT Blood Pressure - - Pulse 36.8 C (98.2 F) 09/11/2016 2:05 PM CDT Temperature 18 09/11/2016 2:05 PM CDT Respiratory Rate 100% 09/11/2016 2:05 PM CDT Oxygen Saturation - - Inhaled Oxygen Concentration 89.8 kg (198 lb) 09/11/2016 2:05 PM CDT Weight 152.4 cm (5') 09/11/2016 2:05 PM CDT Height 38.67 09/11/2016 2:05 PM CDT Body Mass Index documented in this encounter Discharge Instructions * Instructions* Alden Sanders MD - 09/11/2016 Try applying ice 15-20 minutes every few hours for the next 2 days to see if it helps the bruised area heal and start to fade. If it is worsening or you have more problems with it then return or seek medical care at clinic for further testing such as ultrasound or mammogram THANK YOU FOR CHOOSING [facility]! Our goal is to provide you with the highest level of care and service. Your feed back about the positive experience and opportunities for us to better serve you is important to us. Patients will be randomly selected for a short phone survey. We sincerely hope you take a few moments to answer these regarding your recent visit. Thank you in advance for your participation as we continually strive to improve our customers experience! Follow-up with a physician of your choice as needed. [facility]) is available Monday through Mon 7:00am to 7:00pm. [facility] is available Monday 10:00am to 7:00pm and Monday 8:00am to 5:00pm. [facility] is available Monday through Monday from 8:00am to 5:00 pm. [facility] [place] is available seven days a week from 7:00am to 7:00pm . You can reach any of the locations by dialing [phone] or [phone]. Thank you for choosing [facility] for your health care needs. The following options will see you based on income. [facility] * Attachments The following attachments cannot be sent through Care Everywhere.* BRUISES (PANAMANIAN) * BREAST SELF-EXAM (PANAMANIAN) documented in this encounter Medications at Time of Discharge Start Date End Date Medication Sig Dispensed Refills 09/11/2016 12/10/2016 FLUoxetine (PROzac) 20 mg Take 1 Tablet 90 Tablet 0 tablet (20 mg) by mouth daily For anxiety/depre ssion. documented as of this encounter ED Notes * Alden Sanders MD - 09/11/2016 1:31 PM CDT HISTORY OF PRESENT ILLNESS Opal Trimble, a 26 y.o. female presents to the ED with a Chief Complaint of Breast pain Subjective HPI Comments: She has no pain to breast but has bruised area that is getting big goldy instead of going away. She denies any trauma that she can think of to cause the bruise. She has not tried anything for it History provided by: The patient Arrived by: Private vehicle Breast pain Location: Medial area of right breast with bruised area Severity: Mild Onset quality: noticed it a few days ago but does not remember any trauma to salomon ast to cause the bruise. Timing: Constant Progression: Worsening Chronicity: New Associated symptoms: no abdominal pain, no chest pain, no congestion, no cough, no diarrhea, no ear pain, no fatigue, no fever, no headaches, no loss of conscio usness, no myalgias, no nausea, no rash, no rhinorrhea, no shortness of breath, no sore throat, no vomiting and no wheezing REVIEW OF SYSTEMS Review of Systems Constitutional: Negative for chills, fatigue and fever. HENT: Negative for congestion, ear pain, rhinorrhea, sore throat and trouble swa llowing. Eyes: Negative for visual disturbance. Respiratory: Negative for cough, shortness of breath and wheezing. Cardiovascular: Negative for chest pain. Gastrointestinal: Negative for abdominal pain, diarrhea, nausea and vomiting. Genitourinary: Negative for dysuria. Musculoskeletal: Negative for gait problem and myalgias. Skin: Positive for color change (bruised area to right medial breast). Negative for rash. Allergic/Immunologic: Negative for immunocompromised state. Neurological: Negative for loss of consciousness, weakness and headaches. Psychiatric/Behavioral: The patient is not nervous/anxious. PAST MEDICAL HISTORY REVIEWED MEDICAL: Patient has a past medical history of ADD (attention deficit disorder with hype ractivity); Depression; Insomnia; and Obesity (BMI 30.0-39.9) (2008). She also h as no past medical history of Acute venous embolism and thrombosis of unspecifie d deep vessels of lower extremity; Chest pain; Difficult intubation; Injury of b ack; Injury of face and neck; Latex sensitivity; Malignant hyperthermia; Obstruc tive sleep apnea (adult) (pediatric); Temporomandibular joint disorders, unspeci fied; or Unspecified adverse effect of anesthesia. SURGICAL: Patient has a past surgical history that includes section (12/2005); ga stric bypass (01/11/12); hysteroscopy,dx,sep proc (05/15/2012); dilation/curettage ,diagnostic (05/15/2012); and exploratory of abdomen (11/03/2013). FAMILY: Patient's family history includes Cancer in her paternal grandfather. There is n o history of Breast Cancer. SOCIAL: reports that she has been smoking Cigarettes. She has a 2.50 pack-year smoking history. She has never used smokeless tobacco. She reports that she drinks alco hol. She reports that she uses illicit drugs, including Marijuana. She reports t hat she currently engages in sexual activity and has had male partners. She repo rts using the following method of control/protection: None. [...] oil and Sulfa (sulfonamide antibiotics) HOME MEDICATIONS Discharge Medication List as of 09/11/2016 3:03 PM CONTINUE these medications which have CHANGED Details FLUoxetine (PROzac) 20 mg tablet Take 1 Tablet (20 mg) by mouth daily For anxiet y/depression., Disp-90 Tablet, R-0 STOP taking these medications amphetamine-dextroamphetamine (ADDERALL XR) 30 mg Extended Release 24 hour caps ule Comments: Reason for Stopping: clonazePAM (KlonoPIN) 0.5 mg Tablet Comments: Reason for Stopping: ondansetron (ZOFRAN ODT) 8 mg Tablet, Rapid Dissolve Comments: Reason for Stopping: ibuprofen (MOTRIN) 600 mg tablet Comments: Reason for Stopping: Objective PHYSICAL EXAM INITIAL VS BP: (!) 143/85 (09/11/16 1405), Heart Rate: 78 bpm (09/11/16 1405), Resp: 18 ( 1405), Temp: 98.2 F (36.8 C) (09/11/16 1405), Temp src: Oral ( 7 1405), SpO2: 100 % (09/11/16 1405), Height: 5' (152.4 cm) (09/11/16 1405), Dante ght: 89.8 kg (198 lb) (09/11/16 1405), BMI (Calculated): 38.67 (09/11/16 140) N o LMP recorded. Physical Exam Constitutional: She is oriented to person, place, and time. She appears well-dev eloped and well-nourished. No distress. HENT: Head: Normocephalic and atraumatic. Mouth/Throat: Oropharynx is clear and moist. Cardiovascular: Intact distal pulses. Pulmonary/Chest: Neurological: She is alert and oriented to person, place, and time. GCS eye subs core is 4. GCS verbal subscore is 5. GCS motor subscore is 6. Skin: Skin is warm and dry. She is not diaphoretic. Nursing note and vitals reviewed. DIAGNOSTICS LAB: Labs this ED Encounter - No data to display RADIOLOGY: No orders to display EKG: PROCEDURES Procedures MEDICAL DECISION MAKING AND PLAN OF CARE MDM I have reviewed nursing notes related to past medical history, social history, a nd review of systems and agree, unless otherwise noted. Clinical Course: Counseled to try symptomatic care with ice pack for the bruised area and then ch hsona with clinic for mammogram or ultrasound. She states she has no insurance and does not have the money to go to the clinic. Encouraged to check during the day for financial assistance or casimiro care with [facility] so she can get this looked into. ED Course Discharge Medication List as of 09/11/2016 3:03 PM CONTINUE these medications which have CHANGED Details FLUoxetine (PROzac) 20 mg tablet Take 1 Tablet (20 mg) by mouth daily For anxiet y/depression., Disp-90 Tablet, R-0 STOP taking these medications amphetamine-dextroamphetamine (ADDERALL XR) 30 mg Extended Release 24 hour caps ule Comments: Reason for Stopping: clonazePAM (KlonoPIN) 0.5 mg Tablet Comments: Reason for Stopping: ondansetron (ZOFRAN ODT) 8 mg Tablet, Rapid Dissolve Comments: Reason for Stopping: ibuprofen (MOTRIN) 600 mg tablet Comments: Reason for Stopping: LAST VS BP: (!) 143/85 (09/11/16 1405), Heart Rate: 78 bpm (09/11/16 1405), Resp: 18 ( 1405), Temp: 98.2 F (36.8 C) (09/11/16 1405), Temp src: Oral ( 7 1405), SpO2: 100 % (09/11/16 1405) CLINICAL IMPRESSION Final diagnoses: [N64.89] Bruise of breast (Primary) DISPOSITION, EDUCATION AND MEDICATION RECONCILIATION Medications reconciled. See after visit summary for patient education on discha rged patients. ATTESTATION STATEMENTS documented in this encounter Plan of Treatment Not on filedocumented as of this encounter Visit Diagnoses Diagnosis Bruise of breast - Primary Other specified disorders of breast documented in this encounter
--- OUTSIDE RECORDS SUMMARY | 2019-09-21 04:05 | XMS REPORT | Encounter Summary ---
Author Author [facility] Organization [facility] Address Unknown Phone Unavailable Care Team Providers Care Software Support Technician Name Role Phone Emelia Caldwell MD PCP Unavailable Encounter Details Care Team Description Date Type Department Mayar Bermudez APRN NO ADDRESS ON FILE Elevated serum free T4 level (Primary Dx ) 03/17/2017 Orders Only [address] [id number] Social History Date Tobacco Use Types Packs/Day [...] as of this encounter Visit Diagnoses Diagnosis Elevated serum free T4 level - Primary Nonspecific abnormal results of thyroid function study documented in this encounter
--- OUTSIDE RECORDS SUMMARY | 2019-09-21 04:05 | XMS REPORT | Encounter Summary ---
Author Author [facility] Organization [facility] Address Unknown Phone Unavailable Care Team Providers Care Assistant Laboratory Director Name Role Phone Emelia Caldwell MD PCP Unavailable Reason for Visit * Reason Comments Medication Refill Encounter Details Care Team Description Date Type Department Rachel Beavers, clinical reviewer Refill 03/17/2017 Telephone [email or web address] [address] [address] Social History Date Tobacco Use [...] Addendum Note - Rachel Beavers RN - 03/18/2017 10:38 AM PHOTOGRAPHY COORDINATOR Addended by: RACHEL BEAVERS on: 03/18/2017 10:38 AM Modules accepted: Orders OGRAPHY COORDINATOR documented in this encounter Plan of Treatment Not on filedocumented as of this encounter Visit Diagnoses Diagnosis Recurrent major depressive disorder, in partial remission - Primary documented in this encounter
--- OUTSIDE RECORDS SUMMARY | 2019-09-21 04:05 | XMS REPORT | Encounter Summary ---
Author Author [facility] Organization [facility] Address Unknown Phone Unavailable Care Team Providers Care Food Preparation Worker Name Role Phone Jeniffer Tamayo MD PCP Reason for Visit * Reason Comments No Show Encounter Details Care Team Description Date Type Department Jeniffer Tamayo MD [address] [place] [address] No Show 11/04/2015 Telephone [facility] [address] [address] Social History Date Tobacco Use [...] encounter Miscellaneous Notes * Telephone Encounter - Dary Caballero RN - 11/04/2015 10:19 AM CDT Staff at [facility] called to report that the patient no ness wed to her appt with Dr. Perez. Dr. Tamayo was notified. documented in this encounter Plan of Treatment Not on filedocumented as of this encounter Visit Diagnoses Not on filedocumented in this encounter
--- OUTSIDE RECORDS SUMMARY | 2019-09-21 04:05 | XMS REPORT | Encounter Summary ---
Author Author [facility] Organization [facility] Address Unknown Phone Unavailable Care Team Providers Care Plant Associate Name Role Phone Emelia Caldwell MD PCP Unavailable Reason for Visit * Reason Comments Establish Care Encounter Details Care Team Description Date Type Department Mayra Bermudez APRN NO ADDRESS ON FILE Irregular menses (Primary Dx); Obsessive-compulsive disorder, unspecified type; Bipolar affective disorder, remission status unspecified; Anxiety state; Attention deficit disorder (ADD) in adult 03/16/2017 Office Visit [facility] [address] [id number] Social History Date Tobacco Use Types Packs/Day [...] Signs Reading Time Taken Comments Vital Sign 130/74 03/16/2017 5:45 PM FINANCIAL LEGAL ASSISTANT Blood Pressure - - Pulse 37.1 C (98.7 F) 03/16/2017 5:45 PM FINANCIAL LEGAL ASSISTANT Temperature - - Respiratory Rate - - Oxygen Saturation - - Inhaled Oxygen Concentration 95.7 kg (211 lb) 03/16/2017 5:45 PM FINANCIAL LEGAL ASSISTANT Weight 152.4 cm (5') 03/16/2017 5:45 PM FINANCIAL LEGAL ASSISTANT Height 41.21 03/16/2017 5:45 PM FINANCIAL LEGAL ASSISTANT Body Mass Index documented in this encounter Progress Notes * Mayra Bermudez APRN - 03/16/2017 6:02 PM FINANCIAL LEGAL ASSISTANT HISTORY OF PRESENT ILLNESS Opal Trimble, a 26 y.o. female presents with a Chief Complaint of Establi Care Subjective HPI Comes in new to the practice wanting to get established. She is planning to go through [facility] for her counseling and does not have a psychiatrist at present. H as been without her medicines for about a year now. Has lost her jobs and has a job now that she likes and is concerned about losing it d/t her inattentiveness, inability to concentrate, and anxiety issues. She also is concerned about not sleeping at night. Wanting to get started back on her medications. States that she wakes about 6 days a week with panic attacks. Has memory issues which the Prozac helped. Has been diagnosed in the past with OCD, Add, and Bipolar. She feels like anxiety is more of an issue. She was on Prozac 20mg, Adderall 20mg, and Klonopin (does not remember the dosage). States that she tried Xanax but f elt like it was too strong. She doesn't want to be cloudy headed. Cycles are irregular but are monthly. States that she had her last manic episode 3 days ag o. REVIEW OF SYSTEMS Review of Systems Allergic/Immunologic: Seasonal allergies Neurological: Positive for headaches. Psychiatric/Behavioral: Positive for agitation, decreased concentration, halluci nations and sleep disturbance. Negative for confusion, dysphoric mood, self-inju ry and suicidal ideas. The patient is nervous/anxious. The patient is not hypera ctive. Angered d/t anxiety Objective PHYSICAL EXAM BP 130/74 (BP Location: Left arm, Patient Position (BP): Sitting, BP Cuff Size: Adult) | Temp 98.7 F (37.1 C) (Temporal) | Ht 5' (1.524 m) | Wt 95.7 kg ( 211 lb) | LMP 02/23/2017 (Approximate) | ? No | BMI 41.21 kg/m Physical Exam Constitutional: She is oriented to person, place, and time. She appears well-dev eloped and well-nourished. No distress. HENT: Head: Normocephalic. Right Ear: External ear normal. Left Ear: External ear normal. Nose: Nose normal. Mouth/Throat: Oropharynx is clear and moist. No oropharyngeal exudate. Eyes: Right eye exhibits no discharge. Left eye exhibits no discharge. No sclera l icterus. Neck: Normal range of motion. Neck supple. No thyromegaly present. Cardiovascular: Normal rate, regular rhythm and normal heart sounds. No murmur heard. Pulmonary/Chest: Effort normal and breath sounds normal. No respiratory distress . She has no wheezes. She has no rales. Abdominal: Soft. Bowel sounds are normal. She exhibits no distension and no mass . There is no tenderness. There is no rebound and no guarding. No hernia. Lymphadenopathy: She has no cervical adenopathy. Neurological: She is alert and oriented to person, place, and time. She displays normal reflexes. She exhibits normal muscle tone. Coordination normal. Skin: Skin is warm and dry. She is not diaphoretic. Psychiatric: She has a normal mood and affect. Her behavior is normal. Judgment and thought content normal. Mildly anxious. Nursing note and vitals reviewed. Assessment ASSESSMENT and PLAN: ICD-10-CM ICD-9-CM 1. Irregular menses N92.6 626.4 POC , URINE TSH T4 FREE COMPREHENSIVE METABOLIC PANEL CBC WITHOUT DIFFERENTIAL 2. Obsessive-compulsive disorder, unspecified type F42.9 300.3 FLUoxetine (PROza c) 20 mg tablet TSH T4 FREE COMPREHENSIVE METABOLIC PANEL CBC WITHOUT DIFFERENTIAL 3. Bipolar affective disorder, remission status unspecified F31.9 296.80 FLUoxet ine (PROzac) 20 mg tablet TSH T4 FREE COMPREHENSIVE METABOLIC PANEL CBC WITHOUT DIFFERENTIAL 4. Anxiety state F41.1 300.00 clonazePAM (KlonoPIN) 0.5 mg Tablet TSH T4 FREE COMPREHENSIVE METABOLIC PANEL CBC WITHOUT DIFFERENTIAL 5. Attention deficit disorder (ADD) in adult F98.8 314.00 amphetamine-dextroamph etamine (ADDERALL XR) 10 mg Extended Release 24 hour capsule TSH T4 FREE COMPREHENSIVE METABOLIC PANEL CBC WITHOUT DIFFERENTIAL Start Adderall XR 10mg, Klonopin 0.5mg bid, and prozac 20mg 1/2 tab for a week t hen go to 20mg. She will contact [facility] for counseling tomorrow. We will refer to Dr. Restrepo for psychiatry and she will plan to return in a week for follow-up unless she walker s further problems, then sooner. Condoms for contraception.. HCG negative. NCIAL LEGAL ASSISTANT documented in this encounter Plan of Treatment Not on filedocumented as of this encounter Procedures Comments Procedure Name Priority Date/Time Associated Diag nosis POC , URINE Routine 03/16/2017 Irregular menses 6:19 PM FINANCIAL LEGAL ASSISTANT CBC WITHOUT DIFFERENTIAL Routine 03/16/2017 Obses sive-compulsive 8:45 AM FINANCIAL LEGAL ASSISTANT disorder, unspecified type Bipolar affective disorder, remission status unspecified Irregular menses Anxiety state Attention deficit disorder (ADD) in adult TSH Routine 03/16/2017 Obsessive-compu lsive 8:45 AM FINANCIAL LEGAL ASSISTANT disorder, unspecified type Bipolar affective disorder, remission status unspecified Irregular menses Anxiety state Attention deficit disorder (ADD) in adult T4 FREE Routine 03/16/2017 Obsessive-compu lsive 8:45 AM FINANCIAL LEGAL ASSISTANT disorder, unspecified type Bipolar affective disorder, remission status unspecified Irregular menses Anxiety state Attention deficit disorder (ADD) in adult COMPREHENSIVE METABOLIC Routine 03/16/2017 Obsess sachin-compulsive PANEL 8:45 AM FINANCIAL LEGAL ASSISTANT disorder, unspecifi ed type Bipolar affective disorder, remission status unspecified Irregular menses Anxiety state Attention deficit disorder (ADD) in adult documented in this encounter Results * POC , URINE (03/16/2017 6:19 PM FINANCIAL LEGAL ASSISTANT) HCG QUAL URINE Negative Negative [facility] K[facility] QC Pass Pass [facility] KIT LOT NUMBER [id number] [facility] KIT EXPIRATION 04-06-18 [facility] Specimen Urine Performing Organization Address City/State/Zipcode Ph one Number [id number] [place], [place] [id number] [place] [address] * CBC WITHOUT DIFFERENTIAL (03/16/2017 8:45 AM FINANCIAL LEGAL ASSISTANT) WBC 8.1 3.6 - 11.1 K/uL [facility] RBC 4.13 3.78 - 5.21 M/uL [facility] [place] HEMOGLOBIN 12.3 11.1 - 15.5 g/dL [facility] - [place] HEMATOCRIT 38.2 34.3 - 46.7 % [facility] [place] MCV 92.5 82.7 - 97.1 fL [facility] - [place] MCH 29.8 27.1 - 32.3 pg [facility] [place] MCHC 32.2 31.3 - 34.9 g/dL [facility] - [place] PLATELETS 288 136 - 352 K/uL [facility] - [place] MPV 10.4 8.6 - 11.8 fL [facility] - [place] RDW 13.4 11.5 - 14.7 % [facility] - [place] RDW-STDEV 45.8 37.2 - 47.6 fL [facility] - [place] Specimen Blood Performing Organization Address City/State/Zipcode Ph one Number [facility] CLIA# [id number] [place], [place] [address] - [place] [facility] * COMPREHENSIVE METABOLIC PANEL (03/16/2017 8:45 AM FINANCIAL LEGAL ASSISTANT) SODIUM 138 136 - 145 mmol/L [facility] [place] POTASSIUM 4.0 3.5 - 5.1 mmol/L [facility] [place] CHLORIDE 97 (L) 98 - 107 mmol/L [facility] [place] CO2 23 22 - 29 mmol/L [facility] [place] CALCIUM 9.6 8.6 - 10.0 mg/dL [facility] - [place] BUN 7 6 - 20 mg/dL [facility] [place] CREATININE 0.83 0.51 - 0.95 mg/dL [facility] [place] GLUCOSE 77 70 - 100 mg/dL [facility] [place] TOTAL PROTEIN 7.9 6.6 - 8.7 g/dL [facility] - [place] ALBUMIN 4.5 3.5 - 5.2 g/dL [facility] [place] BILIRUBIN TOTAL 0.5 <=1.2 mg/dL [facility] [place] ALKALINE 55 35 - 104 U/L [facility] PHOSPHATASE LAB[facility]ATORY SERVICES - [place] AST 16 <=33 U/L [facility] [place] ALT 13 10 - 35 U/L [facility] - [place] GFR >60 >=60 mL/min/1.73 sq [facility] Comment: meter LABORATORY eGFR has not been validated [facility] for use in the elderly (> 70 [...] result. GFR, >60 >=60 mL/min/1.73 sq [facility] meter [facility] - [place] ANION GAP 18 4 - 20 mmol/L [facility] - [place] Specimen Blood Performing Organization Address [facility] LABORATORY SERVICES CLIA# [id number] [place] [address] * T4 FREE (03/16/2017 8:45 AM FINANCIAL LEGAL ASSISTANT) T4 FREE 2.06 (H) 0.93 - 1.70 ng/dL [facility] - [place] Specimen Blood Performing Organization Address [facility] one [facility] [employer] [facility] CLIA# [id number] [place] [address] [address] * TSH (03/16/2017 8:45 AM FINANCIAL LEGAL ASSISTANT) TSH 1.97 0.27 - 4.20 uIU/mL [facility] - [place] Specimen Blood Performing Organization Address [facility] one Dhruv [facility] [employer] [facility] CLIA# [id number] [place] [address] documented in this encounter Visit Diagnoses Diagnosis Irregular menses - Primary Irregular menstrual cycle Obsessive-compulsive disorder, unspecif ied type Bipolar affective disorder, remission s tatus unspecified Anxiety state Anxiety state, unspecified Attention deficit disorder (ADD) in bam lt documented in this encounter"
--- OUTSIDE RECORDS SUMMARY | 2019-09-21 04:05 | XMS REPORT | Encounter Summary ---
Author Author [facility] Organization [facility] Address Unknown Phone Unavailable Care Team Providers Care Linoleum Layer Apprentice Name Role Phone Emelia Caldwell MD PCP Unavailable Reason for Visit * Reason Comments Needs Form Or Letter Filled Out Encounter Details Care Team Description Date Type Department Cassie Acuna RN Needs Form Or Letter Filled Out 03/20/[address] [address] Social History Date Tobacco Use [...] Telephone Encounter - Cassie Acuna RN - 03/20/2017 6:32 PM HVAC FIELD SERVICE TECHNICIAN Prior auth for adderall xr sent to [employer]. Waiting for determinat ion. FIELD SERVICE TECHNICIAN documented in this encounter Plan of Treatment Not on filedocumented as of this encounter Visit Diagnoses Not on filedocumented in this encounter
--- OUTSIDE RECORDS SUMMARY | 2019-09-21 04:05 | XMS REPORT | Encounter Summary ---
Author Author [facility] Organization [facility] Address Unknown Phone Unavailable Care Team Providers Care Avionics Supervisor Name Role Phone Jeniffer Tamayo MD PCP Reason for Visit * Reason Comments Medication Refill Encounter Details Care Team Description Date Type Department Jeniffer Tamayo MD [address] [place] [address] 02/25/2016 Refill [facility] Prim[facility] Care [address] [address] Social History Date Tobacco Use [...] Telephone Encounter - Dary Caballero RN - 02/25/2016 10:14 AM CDT From: Opal Trimble To: Jeniffer Tamayo MD Sent: 02/25/2016 12:31 AM CDT Subject: Medication Renewal Request Original authorizing provider: MD Opal Nuno would like a refill of the following medications: fluconazole (DIFLUCAN) 150 mg tablet [Jeniffer Tamayo MD] amphetamine-dextroamphetamine (ADDERALL XR) 30 mg Extended Release 24 hour caps ule [Jeniffer Tamayo MD] Preferred pharmacy: [id number] [place] [place] - [address] [facility] [address] Comment: documented in this encounter Plan of Treatment Not on filedocumented as of this encounter Visit Diagnoses Not on filedocumented in this encounter
--- OUTSIDE RECORDS SUMMARY | 2019-09-21 04:05 | XMS REPORT | Encounter Summary ---
Author Author [facility] Organization [facility] Address Unknown Phone Unavailable Care Team Providers Care Care Consultant Name Role Phone Emelia Caldwell MD PCP Unavailable Reason for Visit * Reason Comments Needs Form Or Letter PA for Adderall XR Filled Out Encounter Details Care Team Description Date Type Department Rachel Beavers RN Needs Form Or Letter Filled Out (PA for Adderall XR) 03/18/2017 [address] [facility] [address] [address] Social History Date Tobacco Use [...] encounter Miscellaneous Notes * Telephone Encounter - Rachel Beavers RN - 03/18/2017 12:25 PM 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 She is going to try to run the claim a few different ways and see what she can d o. Courtney got it approved for the generic and case number is [id number]. It is appro sonia from now until 03/18/18. Called Opal and let her know. SCHOOL SPECIAL EDUCATION TEACHER documented in this encounter Plan of Treatment Not on filedocumented as of this encounter Visit Diagnoses Not on filedocumented in this encounter
--- OUTSIDE RECORDS SUMMARY | 2019-09-21 04:05 | XMS REPORT | Encounter Summary ---
Author Author [facility] Organization [facility] Address Unknown Phone Unavailable Care Team Providers Care Reel Hooker Name Role Phone Jeniffer Tamayo MD PCP Reason for Visit * Reason Comments Medication Refill Encounter Details Care Team Description Date Type Department Jeniffer Tamayo MD [address] [place] [address] 12/18/[address] [facility] Primar y Care [address] [address] Social History Date Tobacco Use [...] * Telephone Encounter - Ross Centeno - 12/18/2015 11:48 AM CDT Yeast infection. documented in this encounter Plan of Treatment Not on filedocumented as of this encounter Visit Diagnoses Not on filedocumented in this encounter
--- OUTSIDE RECORDS SUMMARY | 2019-09-21 04:06 | XMS REPORT | Encounter Summary ---
Author Author [facility] Organization [facility] Address Unknown Phone Unavailable Care Team Providers Care Cogeneration Technician Name Role Phone Jeniffer Tamayo MD PCP Reason for Visit * Reason Comments Employment Physical Pre-Employment physical and drug screen [employer] Encounter Details Care Team Description Date Type Department Pricilla Glez, TABULAR TYPIST [address] [place] [phone] Physical exam, pre-employment (Primary D x) 09/24/2015 Office Visit [facility] [address] [place] [address] Social History Date Tobacco Use Types Packs/Day Years Used Former Smoker Cigarettes 0.5 5 Smokeless Tobacco: Never [...] Signs Reading Time Taken Comments Vital Sign 116/68 09/24/2015 2:03 PM CDT Blood Pressure 128 09/24/2015 2:03 PM CDT Pulse - - Temperature - - Respiratory Rate 97% 09/24/2015 2:03 PM CDT Oxygen Saturation - - Inhaled Oxygen Concentration 87.1 kg (192 lb) 09/24/2015 2:03 PM CDT Weight 156.2 cm (5' 1.5") 09/24/2015 2:03 PM CDT Height 35.69 09/24/2015 2:03 PM CDT Body Mass Index documented in this encounter Progress Notes * Pricilla Glez ARNP - 09/24/2015 2:25 PM CDT Please see scanned [employer] pre-employment physical. documented in this encounter Plan of Treatment Not on filedocumented as of this encounter Visit Diagnoses Diagnosis Physical exam, pre-employment - Primary Health examination of defined subpopula tion documented in this encounter
--- OUTSIDE RECORDS SUMMARY | 2019-09-21 04:06 | XMS REPORT | Encounter Summary ---
Author Author [facility] Organization [facility] Address Unknown Phone Unavailable Care Team Providers Care Entry Level Project Coordinator Name Role Phone Jeniffer Tamayo MD PCP Reason for Visit * Reason Comments Medication Refill Encounter Details Care Team Description Date Type Department Parveen Reyna MD NO ADDRESS ON FILE 07/28/[address] [address] Social History Date Tobacco Use [...]
--- OUTSIDE RECORDS SUMMARY | 2019-09-21 04:06 | XMS REPORT | Encounter Summary ---
Author Author [facility] Organization [facility] Address Unknown Phone Unavailable Care Team Providers Care Blow Off Worker Name Role Phone Jneiffer Tamayo MD PCP Encounter Details Care Team Description Date Type Department Lauren Robbins (Student), Medical Lead 10/15/2015 [facility] ort Encounter [facility] [address] [place] [address] Social History Date Tobacco Use Types [...] Date End Date Medication Sig Dispensed Refills 08/31/2015 10/16/2015 amphetamine-dextroampheta Take 1 30 Capsule 0 mine (ADDERALL XR) 30 mg Capsule (30 Extended Release 24 hour mg) by mouth capsule daily 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 03/01/2016 gabapentin (NEURONTIN) Take 600 mg 0 300 mg capsule by mouth daily at bedtime. documented as of this encounter Progress Notes * Lauren Robbins, Medical Lead - 10/15/2015 2:01 PM CDT Pre-Work or Functional Job Screening Opal Trimble completed screening today. 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 This screen requred 23 minutes. PASS grade was obtained. The potential employee was informed of test grade at time of testing. Company faxed results. Lauren Robbins, PT Assist Electronically signed by Lauren Robbins, Medical Lead at 016 2:01 PM CDT documented in this encounter Plan of Treatment Not on filedocumented as of this encounter Visit Diagnoses Not on filedocumented in this encounter
--- OUTSIDE RECORDS SUMMARY | 2019-09-21 04:06 | XMS REPORT | Encounter Summary ---
Author Author [facility] Organization [facility] Address Unknown Phone Unavailable Care Team Providers Care Lidder Name Role Phone Jeniffer Tamayo MD PCP Reason for Visit * Reason Comments Medication Refill Encounter Details Care Team Description Date Type Department Jeniffer Tamayo MD [address] [place] [address] 08/03/2015 Refill [facility] Care [address] [address] Social History Date Tobacco Use [...] Notes * Telephone Encounter - Ricky Manrique - 08/03/2015 10:47 AM CDT From: Opal Trimble To: Lucius Murry MD Sent: 08/01/2015 7:07 PM CDT Subject: Medication Renewal Request Original authorizing provider: MD Opal Tan would like a refill of the following medications: amphetamine-dextroamphetamine (ADDERALL XR) 30 mg Extended Release 24 hour caps ule [Lucius Murry MD] Preferred pharmacy: [facility] [place], [place] - [address] [facility] [address] Comment: documented in this encounter Plan of Treatment Not on filedocumented as of this encounter Visit Diagnoses Not on filedocumented in this encounter
--- OUTSIDE RECORDS SUMMARY | 2019-09-21 04:06 | XMS REPORT | Encounter Summary ---
Author Author [facility] Organization [facility] Address Unknown Phone Unavailable Care Team Providers Care Table Assembler Name Role Phone Jeniffer Tamayo MD PCP Reason for Visit * Reason Comments Wants Appointment Encounter Details Care Team Description Date Type Department Jeniffer Tamayo MD [address] [place] [address] Wants Appointment 08/07/[address] [facility] Primar y Care [address] [address] Social History Date Tobacco Use [...] * Telephone Encounter - Ross Centeno - 08/07/2015 3:43 PM CDT Pt called wanting to see Dr. Tamayo for a mammo. I let pt know she would have to see the To get documentation on why she needs one since she under the age of 40. I let pt know Dr. Tamayo is out of the office next week so her first availab le is going to be 4-22. I also let her know if it is bad enough there will be a drKareen crew caller while Dr. Tamayo is out next week. documented in this encounter Plan of Treatment Not on filedocumented as of this encounter Visit Diagnoses Not on filedocumented in this encounter
--- OUTSIDE RECORDS SUMMARY | 2019-09-21 04:06 | XMS REPORT | Encounter Summary ---
Author Author [facility] Organization [facility] Address Unknown Phone Unavailable Care Team Providers Care Screw Machine Hand Name Role Phone Jeniffer Tamayo MD PCP Reason for Referral * Outpatient Services (Routine) Referred By Contact Referred To Contact Status Reason Specialty Diagnoses / Procedures Nic Hebert MD [address] [place] [address] Closed Diagnoses Galactorrhea Change of skin of breast P rocedures MAMMO BREAST US BILAT COMPLETE US BREAST BILAT COMPLETE Reason for Visit * Outpatient Services (Routine) Referred By Contact Referred To Contact Status Reason Specialty Diagnoses / Procedures Nic Hebert MD [address] [place] [address] Closed Diagnoses Galactorrhea Change of skin of breast P rocedures MAMMO BREAST US BILAT COMPLETE US BREAST BILAT COMPLETE Encounter Details Care Team Description Date Type Department Nic Hebert MD [address] [place] [address] 08/14/2015 [facility] ort Encounter Steve Ultrasound [address] [place] [address] Social History Date Tobacco Use [...] Date End Date Medication Sig Dispensed Refills 08/03/2015 08/31/2015 amphetamine-dextroampheta Take 1 30 Capsule 0 mine (ADDERALL XR) 30 mg Capsule (30 Extended Release 24 hour mg) by mouth capsule daily 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 03/01/2016 gabapentin (NEURONTIN) Take 600 mg 0 300 mg capsule by mouth daily at bedtime. documented as of this encounter Plan of Treatment Not on filedocumented as of this encounter Procedures Comments Procedure Name Priority Date/Time Associated Diag nosis MAMMO BREAST US BILAT Routine 08/14/2015 Galactor jairo COMPLETE 11:26 AM CDT Change of skin of b reast documented in this encounter Results * MAMMO BREAST US BILAT COMPLETE (08/14/2015 11:26 AM CDT) Specimen Impressions Performed At IMPRESSION: Negative bilateral breast u ltrasound. Just based on imaging findings INTERFACE SYSTEM alone, no additional imaging followup felt to be warranted. Patient advised to follow up with her referring physician regarding the bilateral galactorrhea, a nd the skin changes left breast. BI RADS 1- Negative Electronically Signed By: Cem borden MD, Signed On: 08/14/2015 11:36 AM Narrative Performed At EXAM: Completed bilateral breast ultras ound with evaluation of all 4 quadrants, INTERFACE SYSTEM subareolar regions, and axillae INDICATION: Bilateral galactorrhea, wit h focal skin change inferolateral left breast when lifting arms COMPARISON: The diagnostic mammogram pe rformed this same day. FINDINGS: No discrete sonographic abnor malities identified in either breast. Specifically, no sonographic findings appreciated at the region of c oncern in the 5:00 position left breast, where the patient reports focal skin change/retraction wh en lifting arms. No cysts, dilated ducts, or solid nodular lesions identified. No subareolar or axillary a bnormalities identified bilaterally. Performing Organization Address City/State/Zipcode Ph one Number INTERFACE SYSTEM INTERFACE SYSTEM Refer to clinic/hospital department documented in this encounter Visit Diagnoses Diagnosis Galactorrhea Galactorrhea not associated with childb irth Change of skin of breast Changes in skin texture documented in this encounter
--- OUTSIDE RECORDS SUMMARY | 2019-09-21 04:06 | XMS REPORT | Encounter Summary ---
Author Author [facility] Organization [facility] Address Unknown Phone Unavailable Care Team Providers Care Exterior Work Helper Name Role Phone Jeniffer Tamayo MD PCP Reason for Visit * Reason Comments Medication Refill Encounter Details Care Team Description Date Type Department Jeniffer Tamayo MD [address] [place] [address] 10/16/[address] [facility] Primar Care [address] [address] Social History Date Tobacco Use [...] Telephone Encounter - Ricky Manrique Trung - 10/16/2015 10:19 AM CDT From: Opal Trimble To: Jeniffer Tamayo MD Sent: 10/13/2015 8:38 PM CDT Subject: Medication Renewal Request Original authorizing provider: MD Opal Nuno would like a refill of the following medications: amphetamine-dextroamphetamine (ADDERALL XR) 30 mg Extended Release 24 hour caps ule [Jeniffer Tamayo MD] Preferred pharmacy: [facility] [address] [place], [place] - [address] [facility] [address] Comment: * Telephone Encounter - Ricky Manrique - 10/16/2015 10:19 AM CDT From: Opal Trimble To: Jeniffer Tamayo MD Sent: 10/15/2015 6:23 AM CDT Subject: Medication Renewal Request Original authorizing provider: MD Opal Nuno would like a refill of the following medications: amphetamine-dextroamphetamine (ADDERALL XR) 30 mg Extended Release 24 hour caps ule [Jeniffer Tamayo MD] Preferred pharmacy: [facility] [address] [place], [place] [address] [address] [facility] [address] Comment: documented in this encounter Plan of Treatment Not on filedocumented as of this encounter Visit Diagnoses Not on filedocumented in this encounter
--- OUTSIDE RECORDS SUMMARY | 2019-09-21 04:06 | XMS REPORT | Encounter Summary ---
Author Author [facility] Organization [facility] Address Unknown Phone Unavailable Care Team Providers Care Decator Operator Name Role Phone Jeniffer Tamayo MD PCP Reason for Referral * Outpatient Services (Routine) Referred By Contact Referred To Contact Status Reason Specialty Diagnoses / Procedures Nic Hebert MD [address] [facility] [place] [address] Closed Diagnoses Galactorrhea Change of skin of breast P rocedures MAMMO DIGITAL DIAG BILAT Reason for Visit * Outpatient Services (Routine) Referred By Contact Referred To Contact Status Reason Specialty Diagnoses / Procedures Nic Hebert MD [address] [place] [address] Closed Diagnoses Galactorrhea Change of skin of breast P rocedures MAMMO DIGITAL DIAG BILAT Encounter Details Care Team Description Date Type Department Nic Hebert MD [address] [facility] [place] [address] 08/14/2015 [facility] ort Encounter Steve Mammography [address] [place] [phone] Social History Date Tobacco Use Types Packs/Day [...] 24 hour mg) 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 03/01/2016 gabapentin (NEURONTIN) Take 600 mg 0 300 mg capsule by mouth daily at bedtime. documented as of this encounter Plan of Treatment Not on filedocumented as of this encounter Procedures Comments Procedure Name Priority Date/Time Associated Diag nosis MAMMO DIAGNOSTIC Routine 08/14/2015 Galactorrhea BILATERAL W OR WO CAD 10:50 AM CDT Change of skin of breast documented in this encounter Results * MAMMO DIGITAL DIAG BILAT (08/14/2015 10:50 AM CDT) Specimen Impressions Performed At IMPRESSION: No specific mammographic ab normalities identified either breast. The INTERFACE SYSTEM patient is also scheduled for bilateral complete breast ultrasound. Final recommendation for followup will be made with the ultrasound report. BI RADS 0-Incomplete- Needs additional imaging evaluation and/or prior mammograms for comparison. "Mammography is a sensitive method for finding small breast cancers, but it does not detect all and is not a substitute for careful clinical e xamination. A negative mammogram does not negate a clinically suspicious finding and should not resul t in delay in biopsying a clinically suspicious abnormality." A patient report letter will also be ma iled directly to the patient within 30 days. Electronically Signed By: Cem borden MD, Signed On: 08/14/2015 11:32 AM Narrative Performed At EXAM: Bilateral digital diagnostic mammogram with CAD INTERFACE SYSTEM INDICATION: Bilateral galactorrhea with cloudy nipple discharge, with focal skin change inferolaterally left breast when raising arms COMPARISON: None, baseline mammogram Breast density: C--50-75%--heterogeneou sly dense. FINDINGS: Moderate fibroglandular esparza es demonstrated throughout both breasts. No spiculated masses or malignant appearing microcalcifications identified. No architectural distortion or skin thickening appreciated. No specific mammographic a bnormalities identified in the inferolateral aspect left breast, at the site of the reported skin retrac tion when patient lifts her left arm. Performing Organization Address City/State/Zipcode Ph one Number INTERFACE SYSTEM INTERFACE SYSTEM Refer to clinic/hospital department documented in this encounter Visit Diagnoses Diagnosis Galactorrhea Galactorrhea not associated with childb irth Change of skin of breast Changes in skin texture documented in this encounter
--- OUTSIDE RECORDS SUMMARY | 2019-09-21 04:06 | XMS REPORT | Encounter Summary ---
Author Author [facility] Organization [facility] Address Unknown Phone Unavailable Care Team Providers Care Vice President Of Development Name Role Phone Jeniffer Tamayo MD PCP Reason for Visit * Reason Comments Medication Refill Encounter Details Care Team Description Date Type Department Jeniffer Tamayo MD [address] [place] [address] 08/31/2015 Refill [facility] Primar Care [address] [address] Social History Date Tobacco Use [...] Telephone Encounter - Ricky Manrique Trung - 08/31/2015 8:02 AM CDT From: Opal Trimble To: Jeniffer Tamayo MD Sent: 08/31/2015 1:48 AM CDT Subject: Medication Renewal Request Original authorizing provider: MD Opal Nuno would like a refill of the following medications: amphetamine-dextroamphetamine (ADDERALL XR) 30 mg Extended Release 24 hour caps ule [Jeniffer Tamayo MD] Preferred pharmacy: [facility] [address] [place], [place] - [address] [facility] [address] Comment: documented in this encounter Plan of Treatment Not on filedocumented as of this encounter Visit Diagnoses Not on filedocumented in this encounter
--- OUTSIDE RECORDS SUMMARY | 2019-09-21 04:06 | XMS REPORT | Encounter Summary ---
Author Author [facility] Organization [facility] Address Unknown Phone Unavailable Care Team Providers Care Accounts Receivable Accountant Name Role Phone Jeniffer Tamayo MD PCP Reason for Visit * Reason Comments Medication Refill Encounter Details Care Team Description Date Type Department Jeniffer Tamayo MD [address] [place] [address] 05/18/2015 Refill [facility] Primar [address] [address] Social History Date Tobacco Use [...] Telephone Encounter - Nayeli Johnson RN - 05/19/2015 8:27 AM REPAIRER MAINTENANCE BUILDING From: Opal Trimble To: Jeniffer Tamayo MD Sent: 05/18/2015 11:14 PM REPAIRER MAINTENANCE BUILDING Subject: Medication Renewal Request Original authorizing provider: MD Opal Nuno would like a refill of the following medications: citalopram (CELEXA) 10 mg tablet [Jeniffer Tamayo MD] amphetamine-dextroamphetamine (ADDERALL XR) 30 mg Extended Release 24 hour caps ule [Jeniffer Tamayo MD] Preferred pharmacy: [facility] [address] [place] [address], [place] - [address] [facility] [address] Comment: Can I raise the dosage on the citalopram please? [employer]ER MAINTENANCE BUILDING documented in this encounter Plan of Treatment Not on filedocumented as of this encounter Visit Diagnoses Not on filedocumented in this encounter
--- OUTSIDE RECORDS SUMMARY | 2019-09-21 04:06 | XMS REPORT | Encounter Summary ---
Author Author [facility] Organization [facility] Address Unknown Phone Unavailable Care Team Providers Care Director Of Scientific Research Name Role Phone Jeniffer Tamayo MD PCP Reason for Visit * Reason Comments Other Lauren called to follow up on drug screen patient was to do prior to doing pre-employment physical as the physical could not be conducted until we receive results. Spoke with dennise Almanza [facility], who reports she will call [employer] as they still have not received results from drugscreen. LM with update on Lauren's VM. Encounter Details Care Team Description Date Type Department Jeniffer Tamayo MD [address] [place] [address] Other (Lauren called to follow up on marialuisa g screen patient was to do prior to doing pre-employment physical as the physical could not be conducted until we receive results. Spoke with Cami [facility], who reports she will call [employer] as they still have not received results from drugscreen. SARAHI with update on Lauren's VM. ) 10/13/2015 Telephone [facility] Primar [facility] [address] [place] [address] Social History Date Tobacco Use Types [...]
--- OUTSIDE RECORDS SUMMARY | 2019-09-21 04:06 | XMS REPORT | Encounter Summary ---
Author Author [facility] Organization [facility] Address Unknown Phone Unavailable Care Team Providers Care Control Clerk Name Role Phone Jeniffer Tamayo MD PCP Reason for Visit * Auth/Cert Referred By Contact Referred To Contact Status Reason Specialty Diagnoses / Procedures [facility] Med Surg [address] [place] [address] Inpatient Diagnoses p yleoneph Encounter Details Care Team Description Date Type Department Darrin Stahl MD [address] [place] [address] Jeniffer Tamayo MD [address] [place] [address] Pyelonephritis 06/11/2015 Hospital [facility] - Encounter [facility] 06/12/2015 [address] [place] [address] Social History Date Tobacco Use [...] Reading Time Taken Comments Vital Sign 102/60 06/12/2015 11:34 AM SENIOR [employer]ERIALS PLANNER Blood Pressure 84 06/12/2015 11:34 AM SENIOR MATERIALS PLANNER Pulse 36.1 C (97 F) 06/12/2015 11:34 AM SENIOR MATERIALS PLANNER Temperature 18 06/12/2015 11:34 AM SENIOR MATERIALS PLANNER Respiratory Rate 99% 06/12/2015 11:34 AM SENIOR MATERIALS PLANNER Oxygen Saturation - - Inhaled Oxygen Concentration 77.4 kg (170 lb 11.2 oz) 06/11/2015 2:00 PM SENIOR MATERIALS PLANNER Weight 152.4 cm (5') 06/11/2015 2:00 PM SENIOR MATERIALS PL[employer]NER Height 33.34 06/11/2015 2:00 PM SENIOR MATERIALS PL[employer]NER Body Mass Index documented in this encounter Discharge Summaries * Jeniffer Tamayo MD - 06/12/2015 1:12 PM SENIOR MATERIALS PLANNER Physician Discharge Summary Patient: Opal Dimas Atilio / 25 y.o. / female : 1990 Admit date: 06/11/2015 Indication for Admission: back pain. Admitting Diagnoses: pyleoneph Attending Physician: Jeniffer Tamayo MD Consults: none. 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 Hospital Course: Patient admitted for back pain and CVA tenderness. Admission Condition: mildly deteriorating. Discharge date: 06/12/2015 Discharging Physician: Jeniffer Tamayo MD Discharge Exam: General appearance: alert, in no distress Head: atraumatic, Normocephalic, without obvious abnormality Back: symmetric, no curvature. ROM normal. No CVA tenderness. Lungs: clear to auscultation bilaterally, normal respiratory effort Heart: normal rate, regular rhythm, normal S1, S2, no murmurs, rubs, clicks or g allops Extremities: extremities normal, atraumatic, no cyanosis or edema, intact distal pulses, moves all extremities equally, no edema, redness or tenderness in the c badillo or thighs, normal strength, normal tone, lumbar paraspinal muscles tender to palpation Skin: Skin color, texture, turgor normal. No rashes or lesions. Discharge Condition: improved to baseline. Discharge Diagnoses: Back pain. Disposition: home. MEDICATIONS Prior to admission: Prescriptions prior to admission Medication Sig Dispense Refill Last Dose gabapentin (NEURONTIN) 300 mg capsule Take 600 mg by mouth daily at bedtime. 06/04/2015 at 2100 amphetamine-dextroamphetamine (ADDERALL XR) 30 mg Extended Release 24 hour c apsule Take 1 Capsule (30 mg) by mouth daily banana grader. 30 Capsule 0 06/04/19 16 at 0730 citalopram (CELEXA) 20 mg tablet Take 1 Tablet (20 mg) by mouth daily. 30 Ta blet 3 06/04/2015 at 0730 baclofen (LIORESAL) 10 mg tablet Take 1 Tablet (10 mg) by mouth 3 times rhonda y as needed for Pain. 90 Tablet 0 05/28/2015 at 2100 Discharge medications and new prescriptions: Medication List START taking these medications HYDROcodone-acetaminophen 5-325 mg tablet Commonly known as: NORCO Take 1 Tablet by mouth every 4 hours as needed for Pain, Mild (For Pain Scale 1- 3). Max Daily Amount: 6 Tablet Signed by: Jeniffer Tamayo Quantity: 30 Tablet Refills: 0 ibuprofen 600 mg tablet Commonly known as: MOTRIN Take 1 Tablet (600 mg) by mouth every 8 hours as needed for Pain, Mild. Signed by: Jeniffer Tamayo Quantity: 30 Tablet Refills: 0 CONTINUE taking these medications amphetamine-dextroamphetamine 30 mg Extended Release 24 hour capsule Commonly known as: ADDERALL XR Take 1 Capsule (30 mg) by mouth daily banana grader. Signed by: Jeniffer Tamayo Quantity: 30 Capsule Refills: 0 baclofen 10 mg tablet Commonly known as: LIORESAL Take 1 Tablet (10 mg) by mouth 3 times daily as needed for Pain. Signed by: Jeniffer Tamayo Quantity: 90 Tablet Refills: 0 citalopram 20 mg tablet Commonly known as: CeleXA Take 1 Tablet (20 mg) by mouth daily. Signed by: Jeniffer Tamayo Quantity: 30 Tablet Refills: 3 gabapentin 300 mg capsule Commonly known as: NEURONTIN Take 600 mg by mouth daily at bedtime. Refills: 0 Where to Get Your Medications Information on where to get these meds is not yet available. Ask your nurse or doctor. - HYDROcodone-acetaminophen 5-325 mg tablet - ibuprofen 600 mg tablet Patient instructions: Activity: activity as tolerated. Diet: Regular Diet. Wound Care: None needed. Follow-up with Jeniffer Tamayo MD call if not improving. Signed: Jeniffer Tamayo MD 06/12/2015, 1:12 PM OR MATERIALS PLANNER documented in this encounter Discharge Instructions * Instructions* Yudith Cisneros RN - 06/12/2015 DISCHARGE DESTINATION: Home DISCHARGE SERVICES: None FOLLOW-UP Follow up with your primary care physician as needed. PRESCRIPTIONS: Prescriptions given? No SIGNS AND SYMPTOMS TO REPORT Contact your health care provider if you experience any of the following symptom s: increase in pain or temperature greater than 101. ACTIVITY Your activity level is: increase activity as tolerated and no smoking. If you smoke you are advised to quit. Ask your health care provider for advice if you need assistance to stop smoking. Avoid second-hand smoke exposure and do not le t people smoke in your home. call if not improving. DIET Your diet is: Advance diet as tolerated from clear liquids. WOUND CARE For your wound/incision: None needed MEDICATIONS Reminders: Please discard any old medication lists and update records with all of your medi cation(s) to your providers and retail pharmacies. Please become familiar with the use and dose of your prescription and over-the-c ounter medications, including those taken only as needed. Please bring a current medication list and/or your medications to your medical a ppointments. Carry your allergy and medication information with you at all times in the event of emergency situations ................................................................................ ...................................................... *THANK YOU FOR CHOOSING [facility] Our goal is to provide you with the highest level of care and service. Your fe edback about the positive experience and opportunities for us to better serve yo u is important to us. Patients will be randomly selected for either a phone or e-mail survey. * Phone surveys will be conducted by a non-[facility] employed attendant to patients of [facility] inpatient unit, surgery, emergency department, home health or [facility]. * E-mail surveys will be delivered to [facility] patients and outpatients. .Did you know you don't have to call your doctor's office to ask a question, get your test results, or request an appointment or prescription renewal? You can do all of that and more, 28/11, with [employer]. Send a secure message, pay a bill, check your health records - it's all there on your laptop, tablet, or phone, an ywhere you have Internet access. Learn more or sign up at [employer]. .. IMPORTANT EMERGENCY PHONE NUMBERS Poison Control [place] Crisis Hotline- Domestic Violence Suicide Prevention Lifeline * Attachments The following attachments cannot be sent through Care Everywhere.* PYELONEPHRITIS ([place]) * ABDOMINAL PAIN: FREQUENT ([place]) documented in this encounter Medications at Time of Discharge Start Date End Date Medication Sig Dispensed Refills 03/01/2016 gabapentin (NEURONTIN) Take 600 mg 0 300 mg capsule by mouth daily at bedtime. 05/19/2015 06/18/2015 amphetamine-dextroampheta Take 1 30 Capsule 0 mine (ADDERALL XR) 30 mg Capsule (30 Extended Release 24 hour mg) by mouth capsule daily banana grader. documented as of this encounter Progress Notes * Fariha Cisneros RN - 06/12/2015 2:00 PM SENIOR [employer]ERIALS [employer]NER Discharge instructions given to patient. See signed discharge summary. Patient verbalizes understanding. Education on personal hygiene to avoid future infect ions. OR MATERIALS PLANNER * Fariha Cisneros RN - 06/12/2015 1:52 PM SENIOR MATERIALS PLANNER Patient refuses GILBERTO discharge video. OR MATERIALS PLANNER * Fariha Cisneros RN - 06/12/2015 12:27 PM SENIOR MATERIALS PLANNER Patient states ready to go home, denies nausea, reports minimal pain "tolerable" , paged Dr. Tamayo. OR MATERIALS PLANNER * Sofiya Steele, JOHN - 06/12/2015 1:48 AM SENIOR MATERIALS PLANNER Pt. C/o generalized itching. Scratch workman noted to upper ext. No rash, hives, increased warmth noted to body. Instructed pt. Could be related to morphine she received earlier. Will continue to monitor. OR MATERIALS PLANNER * Fariha Cisneros RN - 06/11/2015 6:30 PM SENIOR MATERIALS PLANNER Education: pyelonephritis handouts given to patient. OR MATERIALS PLANNER * Fariha Cisneros RN - 06/11/2015 5:00 PM SENIOR MATERIALS PLANNER Notified Dr. Stahl of lab/xr results. No new orders received. OR MATERIALS PLANNER * Fariha Cisneros RN - 06/11/2015 2:00 PM SENIOR MATERIALS PLANNER Patient arrived on floor via wheelchair escorted by nursing staff, Roxann LOPEZ. Patient alert/oriented x4, complains of mild nausea, "achy" pain in lower back that wraps around to the anterior portion of abdomen. Patient is calm, coopera tive, answers questions appropriately. OR MATERIALS PLANNER documented in this encounter H&P Notes * Jeniffer Tamayo MD - 06/12/2015 8:30 AM SENIOR MATERIALS PLANNER Subjective: Patient is a 25 y.o. female admitted from clinic yesterday with three days of worsening burning with urination and back pain. Assumed pyelonephritis as she was just previously diagnosed with UTI and culture positive for klebsiell a. Labs unremarkable and abdominal x-ray normal. Overnight patient's vitals st able and afebrile and pain resolved with hydrocodone. This morning tender to pa laption of lumbar paraspinal muscles, but tolerating po. Patient Active Problem List Diagnosis Date Noted Pyelonephritis 06/11/2015 Raynaud phenomenon 10/30/2014 ADHD (attention deficit hyperactivity disorder) 03/21/2014 Abdominal pain 11/03/2013 Hemoperitoneum 11/03/2013 Pelvic pain in female 10/21/2013 Amenorrhea 10/18/2013 Obesity 07/05/2012 Multiple food allergies 07/05/2012 History of recurrent miscarriages, not currently 05/10/2012 Anovulation 11/29/2010 ADD (attention deficit disorder) 08/06/2010 Past Medical History Diagnosis Date ADD (attention deficit disorder with hyperactivity) Obesity (BMI 30.0-39.9) 2008 Depression cymbalta Insomnia Past Surgical History Procedure Laterality Date Hx section 12/2005 Arrest of dilation @ 3 cm. Delivered in [place], [place] (rqt) Hx gastric bypass 01/11/12 gastric sleeve Pr hysteroscopy,dx,sep proc 05/15/2012 HYSTEROSCOPY performed by Evangelista Marcos DO at [facility] OR Pr dilation/curettage,diagnostic 05/15/2012 DILATATION AND CURETTAGE SUCTION performed by Evangelista Marcos DO at [facility] OR Pr exploratory of abdomen 11/03/2013 LAPAROTOMY EXPLORATORY performed by Evangelista Marcos DO at [facility] OR Prescriptions prior to admission Medication Sig Dispense Refill Last Dose gabapentin (NEURONTIN) 300 mg capsule Take 600 mg by mouth daily at bedtime. 06/04/2015 at 2100 amphetamine-dextroamphetamine (ADDERALL XR) 30 mg Extended Release 24 hour c apsule Take 1 Capsule (30 mg) by mouth daily banana grader. 30 Capsule 0 06/04/19 16 at 0730 citalopram (CELEXA) 20 mg tablet Take 1 Tablet (20 mg) by mouth daily. 30 Ta blet 3 06/04/2015 at 0730 baclofen (LIORESAL) 10 mg tablet Take 1 Tablet (10 mg) by mouth 3 times rhonda y as needed for Pain. 90 Tablet 0 05/28/2015 at 2100 Allergies Allergen Reactions Poppyseed Oil Anaphylaxis "Throat starts to close" Sulfa (Sulfonamide Antibiotics) Hives History Substance Use Topics Smoking status: Former Smoker -- 0.50 packs/day for 5 years Types: Cigarettes Smokeless tobacco: Never Used Alcohol Use: 0.0 oz/week 0 Not specified per week Comment: drinks on weekends Family History Problem Relation Age of Onset Cancer Paternal Grandfather Review of Systems Allergic/Immunologic: negative. Behavioral/Psych: negative. Cardiovascular: negative. Constitutional: negative. Gastrointestinal: negative. Genitourinary:negative. Integument/breast: negative. Neurological: negative. Respiratory: negative. Objective: Patient Vitals for the past 8 hrs: BP Temp Temp src Pulse Resp SpO2 06/12/15 0713 (!) 92/52 mmHg 96.9 F (36.1 C) Tympanic 72 16 98 % 06/12/15 0308 (!) 91/60 mmHg 97.1 F (36.2 C) Tympanic 78 16 100 % Intake/Output Summary (Last 24 hours) at 06/12/15 0830 Last data filed at 06/12/15 0600 Gross per 24 hour Intake 2962.5 ml Output 1150 ml Net 1812.5 ml General appearance: alert, in no distress Head: atraumatic, Normocephalic, without obvious abnormality Lungs: clear to auscultation bilaterally, normal respiratory effort Heart: normal rate, regular rhythm, normal S1, S2, no murmurs, rubs, clicks or g allops Abdomen: Soft, non-tender. Bowel sounds normal. No masses, no organomegaly. Extremities: extremities normal, atraumatic, no cyanosis or edema, intact distal pulses, moves all extremities equally, no edema, redness or tenderness in the c badillo or thighs, normal strength, normal tone Skin: Skin color, texture, turgor normal. No rashes or lesions Neurologic: Grossly normal Musculoskeletal: no joint tenderness, deformity or swelling, tenderness along devin mbar paraspinal muscles; painful with movement Data Review: CBC: Lab Results Component Value Date/Time WBC 8.7 06/11/2015 04:15 PM RBC 4.36 06/11/2015 04:15 PM HGB 13.6 06/11/2015 04:15 PM HCT 39.5 06/11/2015 04:15 PM PLT 212 06/11/2015 04:15 PM BMP: Lab Results Component Value Date/Time GLUCOSE 96 06/11/2015 04:15 PM NA 139 06/11/2015 04:15 PM K 4.4 06/11/2015 04:15 PM CL 104 06/11/2015 04:15 PM CO2 22 06/11/2015 04:15 PM BUN 12 06/11/2015 04:15 PM CREAT 0.79 06/11/2015 04:15 PM CA 9.3 06/11/2015 04:15 PM Assessment: Back pain. Dysuria. Plan: Will advance diet and dc antibiotics. Continue hydrocodone and likely needs mus danay relaxer. Home in afternoon if doing well. OR MATERIALS PLANNER documented in this encounter Miscellaneous Notes * Care Plan - Fariha Cisneros RN - 06/12/2015 1:50 PM SENIOR MATERIALS PLANNER PW MED: URINARY TRACT INFECTION, ADULT - ADMIT TO MED SURG Pathway Day 1 Hemodynamic: Temp </= 100.4F (38C), HR</=100/min, Resp </= 24/min, SBP > /=90mmHg Met Pain Control: Patient reports improvement since arrival/admission Met Fluid Management: Urine output equal to or greater than 30 mL/hour Met Nutrition Managment: Tolerating oral intake without nausea and vomiting. M et Discharge Planning: Discharge needs identified and/or admission screening assessments completed. Met Fall/Trauma/Injury Risk (Adult) Fall/Trauma/Injury Risk: Absence of Trauma/Injury/Falls Progressing General Plan of Care (Adult, Obstetrics) Individualization/Patient-Specific Goal (Adult, Obstetrics) Progressing Plan of Care Review (Adult, Obstetrics) Progressing Identify Discharge Needs Progressing Infection, Risk/Actual (Adult) Infection, Risk/Actual: Infection Prevention/Resolution/Control Progressing OR MATERIALS PLANNER * Care Plan - Sofiya Steele RN - 06/12/2015 4:43 AM SENIOR MATERIALS PLANNER PW MED: URINARY TRACT INFECTION, ADULT - ADMIT TO MED SURG Pathway Day 1 Hemodynamic: Temp </= 100.4F (38C), HR</=100/min, Resp </= 24/min, SBP > /=90mmHg Met Pain Control: Patient reports improvement since arrival/admission Met Fluid Management: Urine output equal to or greater than 30 mL/hour Met Nutrition Managment: Tolerating oral intake without nausea and vomiting. M et Discharge Planning: Discharge needs identified and/or admission screening assessments completed. Met Fall/Trauma/Injury Risk (Adult) Fall/Trauma/Injury Risk: Absence of Trauma/Injury/Falls Progressing General Plan of Care (Adult, Obstetrics) Individualization/Patient-Specific Goal (Adult, Obstetrics) Progressing Plan of Care Review (Adult, Obstetrics) Progressing Identify Discharge Needs Progressing Infection, Risk/Actual (Adult) Infection, Risk/Actual: Infection Prevention/Resolution/Control Progressing OR MATERIALS PLANNER * Care Plan - Sofiya Steele, RN - 06/11/2015 9:12 PM SENIOR MATERIALS PLANNER Problem: General Plan of Care (Adult, Obstetrics) Goal: Plan of Care Review (Adult, Obstetrics) The patient and/or their retail sales representative will communicate an understanding of the ir plan of care. Outcome: Progressing OR MATERIALS PLANNER * Care Plan - Fariha Cisneros RN - 06/11/2015 5:20 PM SENIOR MATERIALS PLANNER Problem: Fall/Trauma/Injury Risk (Adult) Goal: Fall/Trauma/Injury Risk: Absence of Trauma/Injury/Falls Patient will demonstrate the desired outcomes. Outcome: Progressing Problem: Infection, Risk/Actual (Adult) Goal: Infection, Risk/Actual: Infection Prevention/Resolution/Control Patient will demonstrate the desired outcomes. Outcome: Progressing Problem: General Plan of Care (Adult, Obstetrics) Goal: Individualization/Patient-Specific Goal (Adult, Obstetrics) The patient and/or their retail sales representative will achieve their patient-specific goal s related to the plan of care. The patient-specific goals include: to get better and go home Outcome: Progressing Goal: Plan of Care Review (Adult, Obstetrics) The patient and/or their retail sales representative will communicate an understanding of the ir plan of care. Outcome: Progressing OR MATERIALS PLANNER * Care Plan - Fariha Cisneros RN - 06/11/2015 5:13 PM SENIOR MATERIALS PLANNER PW MED: URINARY TRACT INFECTION, ADULT - ADMIT TO MED SURG Pathway Day 1 Hemodynamic: Temp </= 100.4F (38C), HR</=100/min, Resp </= 24/min, SBP > /=90mmHg Met Pain Control: Patient reports improvement since arrival/admission Met Fluid Management: Urine output equal to or greater than 30 mL/hour Met Nutrition Managment: Tolerating oral intake without nausea and vomiting. M et Discharge Planning: Discharge needs identified and/or admission screening assessments completed. Met Fall/Trauma/Injury Risk (Adult) Fall/Trauma/Injury Risk: Absence of Trauma/Injury/Falls Progressing Infection, Risk/Actual (Adult) Infection, Risk/Actual: Infection Prevention/Resolution/Control Progressing OR MATERIALS PLANNER documented in this encounter Plan of Treatment Not on filedocumented as of this encounter Procedures Comments Procedure Name Priority Date/Time Associated Diag nosis URINALYSIS W/REFLEX Routine 06/11/2015 MICROSCOPIC 4:16 PM SENIOR MATERIALS PLANNER URINE CULTURE Routine 06/11/2015 4:16 PM SENIOR MATERIALS PLANNER CBC WITH DIFFERENTIAL Routine 06/11/2015 4:15 PM SENIOR MATERIALS PLANNER BASIC METABOLIC PANEL Routine 06/11/2015 4:15 PM SENIOR MATERIALS PLANNER XR ABDOMEN ACUTE SERIES W Routine 06/11/2015 CXR 3:33 PM SENIOR MATERIALS PLANNER documented in this encounter Results * URINALYSIS (06/11/2015 4:16 PM SENIOR MATERIALS PLANNER) [facility] Signature COLOR UA Yellow Pale to dark yellow [facility] [place] CLARITY UA Clear Clear [facility] [place] SPECIFIC 1.025 1.003 - 1.035 [facility] GRAVITY [facility] [place] PH UA 5.5 5.0 - 8.0 [facility] [place] LEUKOCYTE Negative Negative [facility] ESTERASE [facility] [place] NITRITE UA Negative Negative [facility] [place] PROTEIN UA Trace (A) Negative [facility] [place] GLUCOSE UA Negative Negative [facility] [place] [facility] KETONES UA Negative Negative [facility] [place] UROBILINOGEN UA <2.0 <2.0 mg/dL [facility] [place] BILIRUBIN UA Negative Negative [facility] [place] BLOOD UA Negative Negative [facility] [place] Specimen Urine, clean catch - Urine specimen obtained by clean catch procedure (specimen) Performing Organization Address [facility]ORAT[facility] SERVICES CLIA# [id number] [place] [address] - [address] * URINE CULTURE (06/11/2015 4:16 PM SENIOR MATERIALS PLANNER) CULTURE No growth [facility] [place] Specimen Urine - Urine specimen obtained by clean catch procedure (specimen) Performing Organization Address [facility] LABORATORY SERVICES CLIA# [id number] [place] [address] * BASIC METABOLIC PANEL (06/11/2015 4:15 PM SENIOR MATERIALS PLANNER) SODIUM 139 136 - 145 mmol/L [facility] [place] POTASSIUM 4.4 3.5 - 5.1 mmol/L [facility] [place] CHLORIDE 104 98 - 107 mmol/L [facility] [place] CO2 22 22 - 29 mmol/L [facility] [place] CALCIUM 9.3 8.6 - 10.0 mg/dL [facility] [place] BUN 12 6 - 20 mg/dL [facility] [place] CREATININE 0.79 0.51 - 0.95 mg/dL [facility] [place] GLUCOSE 96 70 - 100 mg/dL [facility] [place] GFR >60 >=60 mL/min/1.73 sq [facility] Comment: meter LABORATORY eGFR has not been validated SERVICES [facility] for use in the elderly (> [...] GFR result. GFR, >60 >=60 mL/min/1.73 sq [facility] [place] meter [facility] [place] ANION GAP 13 4 - 20 mmol/L [facility] [place] Specimen Blood Performing Organization Address City/State/[facility] Ph one Number [facility] CLIA# [id number] TESHA GORDON [address] - [place] [address] [facility] * CBC WITH DIFFERENTIAL (06/11/2015 4:15 PM SENIOR MATERIALS PLANNER) WBC 8.7 2.9 - 11.0 K/uL [facility] [place] RBC 4.36 3.77 - 5.57 M/uL [facility] [place] HEMOGLOBIN 13.6 11.9 - 16.3 g/dL [facility] [place] HEMATOCRIT 39.5 34.4 - 51.6 % [facility] [place] MCV 90.6 82.4 - 103.2 fL [facility] [place] MCH 31.3 26.2 - 32.6 pg [facility] [place] MCHC 34.5 30.2 - 35.0 g/dL [facility] [place] RDW 13.1 11.1 - 14.5 % [facility] [place] PLATELETS 212 137 - 410 K/uL [facility] [place] MPV 8.4 7.4 - 11.9 fL [facility] [place] NEUTROPHILS 65 43 - 73 % [facility] [place] LYMPHOCYTES 28 19 - 47 % [facility] [place] MONOCYTES 5 3 - 9 % [facility] [place] EOSINOPHILS 1 0 - 6 % [facility] [place] BASOPHILS 1 0 - 1 % [facility] [place] NEUTROPHIL 5.64 1.30 - 7.60 K/uL [facility] [place] LYMPHOCYTE 2.41 0.60 - 4.90 K/uL [facility] [place] MONOCYTE 0.46 0.10 - 0.90 K/uL [facility] [facility] [place] EOSINOPHIL 0.12 0.00 - 0.40 K/uL [facility] - [place] BASOPHILS 0.05 0.00 - 0.10 K/uL [facility] - [place] Specimen Blood Performing Organization Address City/State/[facility] Ph one Number [facility] CLIA# [id number] TESHA GORDON [address] - [place] [address] * XR ABDOMEN ACUTE SERIES W CXR (06/11/2015 3:33 PM SENIOR MATERIALS PLANNER) Specimen Impressions Performed At IMPRESSION: INTERFACE SYSTEM Nonspecific bowel gas pattern without b owel obstruction or pneumoperitoneum. No acute cardiopulmonary abnormality id entified. Electronically Signed By: Yo Buitrago MD, Signed On: 06/11/2015 3:46 PM Narrative Performed At EXAM: Supine and upright views of the abdomen with PA chest, abdominal series INTERFACE SYSTEM CLINICAL INDICATION: Abdominal pain COMPARISON: None. FINDINGS: The heart size and pulmonary vascularit y are within normal limits. No consolidating pulmonary infiltrates, pneumothorax, or significa nt pleural effusion are identified. The bowel gas pattern is nonspecific. There is no evidence of vianey wel obstruction or pneumoperitoneum. Surgical clips are noted within the left upper quadrant, nonspec ific. Correlate with prior surgical history. Procedure Note Interface, [facility] Incoming Radiology Results - 06/11/2015 3:51 PM SENIOR MATERIALS PLANNER EXAM: Supine and upright views of the abdomen with PA chest, abdominal series CLINICAL INDICATION: Abdominal pain COMPARISON: None. FINDINGS: The heart size and pulmonary vascularity are within normal limits. No consolidating pulmonary infiltrates, pneumothorax, or significant pleural effusion are identified. The bowel gas pattern is nonspecific. There is no evidence of bowel obstruction or pneumoperitoneum. Surgical clips are noted within the left upper quadrant, nonspecific. Correlate with prior surgical history. IMPRESSION IMPRESSION: Nonspecific bowel gas pattern without bowel obstruction or pneumoperitoneum. No acute cardiopulmonary abnormality identified. Electronically Signed By: Yo Buitrago MD, Signed On: 06/11/2015 3:46 PM Performing Organization Address City/State/Zipcode Ph one Number INTERFACE SYSTEM INTERFACE SYSTEM Refer to clinic/hospital department documented in this encounter Visit Diagnoses Diagnosis Pyelonephritis Pyelonephritis, unspecified documented in this encounter Administered Medications Action Date Dose Rate Site Medication Order MAR Action 06/12/2015 5:13 AM SENIOR MATERIALS PLANNER 400 mg 200 mL/hr ciprofloxacin in dextrose 5% (CIPRO) in New Bag dextrose ivpb 400 mg 400 mg, IV, EVERY 12 HOURS (BlD), 3 doses, First dose on Mon06/12/15 at 0600 , Last dose on Mon06/13/15 at 0600, Routine, Antibiotic Indication: Urinary Tract Infection(UTI) / Infection 06/11/2015 3:54 PM SENIOR MATERIALS PLANNER 200 mg 100 mL/hr ciprofloxacin in dextrose 5% (CIPRO) New Bag IVPB 200 mg 200 mg, IV, ONE TIME ONLY, 1 dose, Ingrid 06/11/15 at 1530, Routine, Antibiotic Indication: Urinary Tract Infection(UTI ) / Infection 06/11/2015 5:00 PM SENIOR MATERIALS PLANNER 200 mg 100 mL/hr ciprofloxacin in dextrose 5% (CIPRO) New Bag IVPB 200 mg 200 mg, IV, ONE TIME ONLY, 1 dose, Ingrid 06/11/15 at 1630, Routine, Antibiotic Indication: Urinary Tract Infection(UTI ) / Infection 06/12/2015 8:48 AM SENIOR MATERIALS PLANNER 20 mg citalopram (CeleXA) tablet 20 mg Given 20 mg, Oral, DAILY, First dose on Ingrid 06/11/15 at 1530, Until Discontinued, Routine, Previous Med: citalopram (CELEXA) 20 mg tablet - Orig Sig - Take 1 Tablet (20 mg) by mouth daily. , 20 mg Given 06/11/2015 3:59 PM SENIOR MATERIALS PLANNER 06/11/2015 3:59 PM SENIOR MATERIALS PLANNER 40 mg Abdomina l Tissue enoxaparin (LOVENOX) injection 40 mg Given 40 mg, subCUT, EVERY 24 HOURS, First dose on Mon06/11/15 at 1600, Until Discontinued, Routine 06/11/2015 5:35 PM SENIOR MATERIALS PLANNER 300 mg 107.5 mL/hr gentamicin (GARAMYCIN) 300 mg in sodium New Bag chloride 0.9% 100 mL EXTENDED INTERVAL IVPB 300 mg, IV, EVERY 24 HOURS, 2 doses, First dose on Mon06/11/15 at 1700, Last dose on Mon06/12/15 at 1700, Routine, Antibiotic Indication: Urinary Tract Infection(UTI) / Infection 06/12/2015 5:12 AM SENIOR MATERIALS PLANNER 1 Tablet HYDROcodone-acetaminophen (NORCO) 5-325 Given mg per tablet 1 Tablet 1 Tablet, Oral, EVERY 4 HOURS PRN, Starting Ingrid 06/11/15 at 1459, Until Mon06/12/15 at 1639, Pain, Mild, For Pain Scale 1-3, Routine 1 Tablet Given 06/11/2015 8:35 PM SENIOR MATERIALS PLANNER 1 Tablet Given 06/11/2015 3:21 PM SENIOR MATERIALS PLANNER 06/11/2015 10:09 PM SENIOR MATERIALS PLANNER 2 mg morphine 4 mg/mL injection 2 mg Given 2 mg, IV, EVERY 2 HOURS PRN, Starting Ingrid 06/11/15 at 1459, Until Mon06/12/15 at 1639, Pain, Mild, For Pain Scale 1-3, Routine 2 mg Given 06/11/2015 6:15 PM SENIOR MATERIALS PLANNER 2 mg Given 06/11/2015 4:10 PM SENIOR MATERIALS PLANNER 06/11/2015 10:09 PM SENIOR MATERIALS PLANNER 4 mg ondansetron (ZOFRAN ODT) tablet 4 mg Given 4 mg, Oral, EVERY 6 HOURS PRN, Starting Ingrid 06/11/15 at 1459, Until Mon06/12/15 at 1639, Nausea/Emesis, Routine 4 mg Given 06/11/2015 4:00 PM SENIOR MATERIALS PLANNER 06/11/2015 6:16 PM SENIOR MATERIALS PLANNER 10 mL SODIUM CHLORIDE 0.9 % INJECTION SYRINGE Given 1 dose, Starting Ingrid 06/11/15 at 1814, Until Ingrid 06/11/15 at 1816, Amelia OMNICELL : cabinet override, 06/12/2015 1:38 AM SENIOR MATERIALS PLANNER 100 mL/hr sodium chloride 0.9% infusion Bag Switched IV, at 100 mL/hr, CONTINUOUS, Starting Ingrid 06/11/15 at 1500, Until Mon06/12/15 at 1639, Routine 100 mL/hr New Bag 06/11/2015 3:54 PM SENIOR MATERIALS PLANNER documented in this encounter
--- OUTSIDE RECORDS SUMMARY | 2019-09-21 04:06 | XMS REPORT | Encounter Summary ---
Author Author [facility] Organization [facility] Address Unknown Phone Unavailable Care Team Providers Care Band Booker Name Role Phone Jeniffer Tamayo MD PCP Encounter Details Care Team Description Date Type Department Jeniffer Tamayo MD [address] [place] [address] Medication management (Primary Dx) 09/25/2015 Orders Only [facility] Primar y Care [address] [address] Social History Date Tobacco Use [...] as of this encounter Visit Diagnoses Diagnosis Medication management - Primary Encounter for other specified aftercare documented in this encounter
--- OUTSIDE RECORDS SUMMARY | 2019-09-21 04:06 | XMS REPORT | Encounter Summary ---
Author Author [facility] Organization [facility] Address Unknown Phone Unavailable Care Team Providers Care Hogshead Stripper Name Role Phone Jeniffer Tamayo MD PCP Reason for Visit * Reason Comments Medication Refill Encounter Details Care Team Description Date Type Department Jeniffer Tamayo MD [address] [place] [address] 05/19/2015 Refill [facility] Primar y Care [address] [address] Social History Date Tobacco Use [...]
--- OUTSIDE RECORDS SUMMARY | 2019-09-21 04:06 | XMS REPORT | Encounter Summary ---
Author Author [facility] Organization [facility] Address Unknown Phone Unavailable Care Team Providers Care Clinical Cytogeneticist Scientist Name Role Phone Jeniffer Tamayo MD PCP Reason for Visit * Reason Comments Other elevated heart rate Encounter Details Care Team Description Date Type Department Jeniffer Tamayo MD [address] [place] [address] Other (elevated heart rate) 09/25/2015 Telephone [facility] Primar y Care [address] [address] Social History Date Tobacco Use [...] * Telephone Encounter - Ross Centeno - 09/25/2015 11:58 AM CDT Primo Arriaza called stating Opal is there for employment and her heart rate wa s elevated at 128 and by there rules they have to have a ok to continue. Per Dr. Tamayo she was her to have a urine drug screen to make sure she isn't on anything else. documented in this encounter Plan of Treatment Not on filedocumented as of this encounter Visit Diagnoses Not on filedocumented in this encounter
--- OUTSIDE RECORDS SUMMARY | 2019-09-21 04:06 | XMS REPORT | Encounter Summary ---
Author Author [facility] Organization [facility] Address Unknown Phone Unavailable Care Team Providers Care District Ranger Name Role Phone Jeniffer Tamayo MD PCP Reason for Referral * Outpatient Services (Routine) Referred By Contact Referred To Contact Status Reason Specialty Diagnoses / Procedures Nic Hebert MD [address] [place] [address] Closed Diagnoses Galactorrhea Change of skin of breast P rocedures MAMMO BREAST US BILAT COMPLETE US BREAST BILAT COMPLETE * Outpatient Services (Routine) Referred By Contact Referred To Contact Status Reason Specialty Diagnoses / Procedures Nic Hebert MD [address] [place] [address] Closed Diagnoses Galactorrhea Change of skin of breast P rocedures MAMMO DIGITAL DIAG BILAT Reason for Visit * Reason Comments Breast Discharge Breast Mass dimpling and a nodule left Shortness of Breath throat tightness for 8 tima hs Encounter Details Care Team Description Date Type Department Nic Hebert MD [address] [place] [address] Galactorrhea (Primary Dx); Change of skin of breast 08/10/2015 Office Visit [address] [address] Social History Date Tobacco Use [...] Signs Reading Time Taken Comments Vital Sign 160/90 08/10/2015 11:01 AM CDT Blood Pressure - - Pulse - - Temperature - - Respiratory Rate - - Oxygen Saturation - - Inhaled Oxygen Concentration 81 kg (178 lb 8 oz) 08/10/2015 11:01 AM CDT Weight 154.9 cm (5' 1") 08/10/2015 11:01 AM CDT Height 33.73 08/10/2015 11:01 AM CDT Body Mass Index documented in this encounter Progress Notes * Nic Hebert MD - 08/10/2015 11:27 AM CDT HISTORY OF PRESENT ILLNESS Opal Trimble, a 25 y.o. 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 Respiratory: Negative for shortness of breath. Cardiovascular: Negative for chest pain. Objective PHYSICAL EXAM BP 160/90 mmHg | Ht 5' 1" (1.549 m) | Wt 80.967 kg (178 lb 8 oz) | BMI 33.74 kg/ m2 | LMP 08/09/2015 Physical Exam Constitutional: She appears well-developed and well-nourished. Cardiovascular: Normal rate and regular rhythm. Pulmonary/Chest: Effort normal. She exhibits no tenderness (breast exam bilatera lly seems to be more fibrous change by palpation but no distinct mass palpate an d nipples normal with no inversion bilaterall no axillary mass palpated either). Assessment ASSESSMENT and PLAN: ICD-9-CM ICD-10-CM 1. Galactorrhea 611.6 O92.6 PROLACTIN TSH T4 FREE MAMMO DIGITAL DIAG BILAT MAMMO BREAST US BILAT COMPLETE CANCELED: US BREAST BILAT COMPLETE 2. Change of skin of breast 782.8 R23.4 PROLACTIN TSH T4 FREE MAMMO DIGITAL DIAG BILAT MAMMO BREAST US BILAT COMPLETE CANCELED: US BREAST BILAT COMPLETE Will discuss case with radiology and order appropriate imaging likely mammogram and US eval Further recs based on metabolic and imaging results but pt advised surgical cons ultation may be warranted with noted changes even if all above testing wnl documented in this encounter Plan of Treatment Not on filedocumented as of this encounter Results * MAMMO [...] INTERFACE SYSTEM Refer to clinic/hospital department * MAMMO DIGITAL DIAG BILAT (08/14/2015 10:50 [...] lifts her left arm. Performing Organization Address [facility] Number INTERFACE SYSTEM INTERFACE SYSTEM Refer to clinic/hospital department * T4 FREE (08/10/2015 11:53 AM CDT) Pathologist [facility] T4 FREE 1.41 0.93 - 1.70 ng/dL [facility] [place] Specimen Blood Performing Organization Address [facility] CLIA# [id number] [place] [address] * TSH (08/10/2015 11:53 AM CDT) Pathologist [facility] TSH 3.52 0.27 - 4.20 uIU/mL [facility] [place] Specimen Blood Performing Organization Address [facility] LABORATORY SERVICES CLIA# [id number] [place], [place] [address] [address] * PROLACTIN (08/10/2015 11:53 AM CDT) Pathologist [facility] PROLACTIN 12.6 ng/mL [facility] Comment: LABORATORY Prolactin Reference Range [facility] Women (not )4.79-23.3 ng/mL Men4.04-15.2 ng/mL Specimen Blood specimen (specimen) Narrative Performed At REFERENCE LAB ACC #: [id number] [facility] LABORATOR Y [facility] Performing Organization Address City/State/Zipcode Ph one Number [facility] LAB[facility]ORY CLIA # [id number] [place] [address] [phone] [facility] [address] [facility] LABORATORY CLIA # [id number] [place] [address] [facility] [address] documented in this encounter Visit Diagnoses Diagnosis Galactorrhea - Primary Galactorrhea not associated with childb irth Change of skin of breast Changes in skin texture documented in this encounter
--- OUTSIDE RECORDS SUMMARY | 2019-09-21 04:06 | XMS REPORT | Encounter Summary ---
Author Author [facility] Organization [facility] Address Unknown Phone Unavailable Care Team Providers Care Steward/Stewardess Name Role Phone Jeniffer Tamayo MD PCP Encounter Details Care Team Description Date Type Department Nic Hebert MD [address] [place] [address] Ftsc, Outpt Lab 08/10/2015 [facility] Outpatient Encounter Laboratory [address] [id number] Social History Date Tobacco Use Types Packs/Day [...] 24 hour mg) by mouth capsule daily early intervention school psychologist. 03/01/2016 gabapentin (NEURONTIN) Take 600 mg 0 300 mg capsule by mouth daily at bedtime. documented as of this encounter Plan of Treatment Not on filedocumented as of this encounter Procedures Comments Procedure Name Priority Date/Time Associated Diag nosis PROLACTIN Routine 08/10/2015 Galactorrhea 11:53 AM CDT Change of skin of breast TSH Routine 08/10/2015 Galactorrhea 11:53 AM CDT Change of skin of breast T4 FREE Routine 08/10/2015 Galactorrhea 11:53 AM CDT Change of skin of breast documented in this encounter Results * T4 FREE (08/10/2015 11:53 AM CDT) T4 FREE 1.41 0.93 - 1.70 ng/dL [facility] SERVICES - [place] Specimen Blood Performing Organization Address [facility] LABORATORY SERVICES CLIA# [id number] [place], [place] [address] [address] * TSH (08/10/2015 11:53 AM CDT) TSH 3.52 0.27 - 4.20 uIU/mL [facility] - [place] Specimen Blood Performing Organization Address [facility] LABORATORY SERVICES CLIA# [id number] [place] [address] [address] - [address] * PROLACTIN (08/10/2015 11:53 AM CDT) PROLACTIN 12.6 ng/mL [facility] Comment: LABORATORY Prolactin Reference Range [facility] Women (not )4.79-23.3 ng/mL Men4.04-15.2 ng/mL Specimen Blood specimen (specimen) Narrative Performed At REFERENCE LAB ACC #: [id number] [facility] LABORATOR Y [facility] Performing Organization Address [facility] LABORATORY CLIA # [id number] [place] [address] [facility] [address] [facility] LABORATORY CLIA # [id number] [place] [address] [facility] [address] documented in this encounter Visit Diagnoses Diagnosis Galactorrhea Galactorrhea not associated with childb irth Change of skin of breast Changes in skin texture documented in this encounter
--- OUTSIDE RECORDS SUMMARY | 2019-09-21 04:06 | XMS REPORT | Encounter Summary ---
Author Author [facility] Organization [facility] Address Unknown Phone Unavailable Care Team Providers Care Wave Guide Assembler Name Role Phone Jeniffer Tamayo MD PCP Reason for Visit * Reason Comments Vomiting X 3-4 days pain in the flan k area and wrap around to front of abd, fever, itching all over body had kidney infect ion about 1 1/2 months ago and was on antibiotics Encounter Details Care Team Description Date Type Department Darrin Stahl MD [address] [place] [address] Pyelonephritis (Primary Dx) 06/11/2015 Office Visit [facility] Primar y Care [place] [address] [place] [address] Social History Date Tobacco Use [...] Signs Reading Time Taken Comments Vital Sign 120/70 06/11/2015 1:26 PM NUT FORMER Blood Pressure - - Pulse 36.6 C (97.8 F) 06/11/2015 1:26 PM NUT FORMER Temperature - - Respiratory Rate - - Oxygen Saturation - - Inhaled Oxygen Concentration 78.9 kg (174 lb) 06/11/2015 1:26 PM NUT FORMER Weight 152.4 cm (5') 06/11/2015 1:26 PM NUT FORMER Height 33.98 06/11/2015 1:26 PM NUT FORMER Body Mass Index documented in this encounter Progress Notes * Darrin Stahl MD - 06/11/2015 3:52 PM NUT FORMER HISTORY OF PRESENT ILLNESS Opal Trimble, a 25 y.o. female presents with a Chief Complaint of Vomitin g Subjective The history is provided by the patient. The medical record reflects the History of Present Illness as obtained by myself in discussion with the patient. Vomiting Associated symptoms: abdominal pain and chills Associated symptoms: no diarrhea Acute Abdomen Symptom Based The primary symptoms of the illness include abdominal pain, fever, fatigue, naus ea, vomiting and dysuria. The primary symptoms of the illness do not include crow rrhea. The current episode started 2 days ago. The onset of the illness was sudd en. The abdominal pain began more than 2 days ago. The abdominal pain has been gradu ally worsening since its onset. The abdominal pain radiates to the left flank an d right flank. The severity of the abdominal pain is 8/10. The abdominal pain is relieved by nothing. The abdominal pain is exacerbated by movement. The dysuria is associated with frequency and urgency. The dysuria is not associa romero with hematuria. The patient states that she believes she is currently not . The patient has not had a change in bowel habit. Additional symptoms associated with the ill ness include chills, urgency and frequency. Symptoms associated with the illness do not include hematuria or back pain. REVIEW OF SYSTEMS Review of Systems Constitutional: Positive for fever, chills and fatigue. Negative for activity ch jamila and appetite change. HENT: Negative for congestion, facial swelling, hearing loss, rhinorrhea and sne ezing. Eyes: Negative for discharge and itching. Respiratory: Negative for apnea, choking and chest tightness. Cardiovascular: Negative for chest pain and leg swelling. Gastrointestinal: Positive for nausea, vomiting and abdominal pain. Negative for diarrhea and abdominal distention. Genitourinary: Positive for dysuria, urgency and frequency. Negative for hematur ia, flank pain and difficulty urinating. Musculoskeletal: Negative for back pain. Skin: Negative for color change. Neurological: Negative for dizziness, syncope, facial asymmetry and numbness. Psychiatric/Behavioral: Negative for behavioral problems and agitation. Objective PHYSICAL EXAM BP 120/70 mmHg | Temp(Src) 97.8 F (36.6 C) (Tympanic) | Ht 5' (1.524 m) | Wt 78.926 kg (174 lb) | BMI 33.98 kg/m2 | LMP 05/25/2015 | ? No Physical Exam Constitutional: She appears well-developed and well-nourished. HENT: Head: Normocephalic and atraumatic. Right Ear: Hearing, tympanic membrane, external ear and ear canal normal. Left Ear: Hearing, tympanic membrane, external ear and ear canal normal. Nose: Nose normal. Mouth/Throat: Mucous membranes are dry. She does not have dentures. No oral lesi ons. No oropharyngeal exudate. Eyes: Conjunctivae and EOM are normal. Pupils are equal, round, and reactive to light. Neck: Normal range of motion. Neck supple. Cardiovascular: Normal rate, regular rhythm and normal heart sounds. Pulmonary/Chest: Effort normal and breath sounds normal. Abdominal: Soft. Bowel sounds are normal. There is tenderness. There is CVA tend erness (bilaterally). Skin: Skin is warm and dry. Assessment ASSESSMENT and PLAN: ICD-9-CM ICD-10-CM 1. Pyelonephritis 590.80 N12 30 minutes spent with the patient during this vist 50 % of the time is spent in counseling and review the patient has been having difficulty with keeping fluid and food down the miguel ent will be admitted for possible pyelo Will have her start on iv antibiotics explained that may take a Few days to imp rove FORMER documented in this encounter Plan of Treatment Not on filedocumented as of this encounter Visit Diagnoses Diagnosis Pyelonephritis - Primary Pyelonephritis, unspecified documented in this encounter"
--- OUTSIDE RECORDS SUMMARY | 2019-09-21 04:06 | XMS REPORT | Encounter Summary ---
Author Author [facility] Organization [facility] Address Unknown Phone Unavailable Care Team Providers Care Pricing/Signage Team Member Name Role Phone Jeniffer Tamayo MD PCP Reason for Referral * Eval and Treat (Routine) Referred By Contact Referred To Contact Status Reason Specialty Diagnoses / Procedures Jeniffer Tamayo MD [address] [place] [address] Helio Perez PsyD [address] [place] [address] Closed Psychology Diagnoses COLLIN (generalized anxiety disorder) Reason for Visit * Reason Comments Itching Anxiety Encounter Details Care Team Description Date Type Department Jeniffer Tamayo MD [address] [place] [address] COLLIN (generalized anxiety disorder) (Prim jerry Dx); Itching; Tobacco use 10/27/[address] [facility] Primar y Care [address] [place] [address] Social History Date Tobacco Use [...] Signs Reading Time Taken Comments Vital Sign 120/78 10/27/2015 1:30 PM CDT Blood Pressure - - Pulse 37.1 C (98.8 F) 10/27/2015 1:30 PM CDT Temperature - - Respiratory Rate - - Oxygen Saturation - - Inhaled Oxygen Concentration 89.8 kg (198 lb) 10/27/2015 1:30 PM CDT Weight 152.4 cm (5') 10/27/2015 1:30 PM CDT Height 38.67 10/27/2015 1:30 PM CDT Body Mass Index documented in this encounter Progress Notes * Jeniffer Tamayo MD - 10/27/2015 1:40 PM CDT HISTORY OF PRESENT ILLNESS Opal Trimble, a 25 y.o. female presents with a Chief Complaint of Itching and Anxiety Subjective HPI Anxiety and stress. Worried about germs. Won't let son touch her. Started a [employer] job. Things aren't where they are supposed to be. Conversations in her head . Has been on zoloft, celexa, and ritalin, and depakote. Has tried off adderal l. Made her have problems focusing. Anxiety is worse off of adderall because s he can't get things done. REVIEW OF SYSTEMS Review of Systems Constitutional: Negative for fever and chills. Psychiatric/Behavioral: Positive for sleep disturbance. Negative for suicidal id eas, behavioral problems, self-injury and dysphoric mood. The patient is nervous /anxious. Objective PHYSICAL EXAM BP 120/78 mmHg | Temp(Src) 98.8 F (37.1 C) (Tympanic) | Ht 5' (1.524 m) | Wt 89.812 kg (198 lb) | BMI 38.67 kg/m2 | LMP 09/29/2015 Physical Exam Constitutional: She is oriented to person, place, and time. She appears well-dev eloped and well-nourished. Neurological: She is alert and oriented to person, place, and time. Psychiatric: She has a normal mood and affect. Her behavior is normal. Judgment and thought content normal. tearful Assessment ASSESSMENT and PLAN: ICD-9-CM ICD-10-CM 1. COLLIN (generalized anxiety disorder) 300.02 F41.1 AMB REFERRAL TO PSYCHOLOGY 2. Itching 698.9 L29.9 Orders Placed This Encounter AMB REFERRAL TO PSYCHOLOGY FLUoxetine (PROZAC) 20 mg tablet clonazePAM (KLONOPIN) 0.5 mg Tablet hydrOXYzine HCl (ATARAX) 25 mg tablet Will start prozac and klonopin. Start hydroxyzine for itching. May be related to anxiety. documented in this encounter Plan of Treatment Order Schedule Name Type Priority Associated Diag noses Ordered: 10/27/2015 AMB REFERRAL TO Outpatient Routine COLLIN (generaliz ed anxiety PSYCHOLOGY Referral disorder) documented as of this encounter Visit Diagnoses Diagnosis COLLIN (generalized anxiety disorder) - Pr imary Generalized anxiety disorder Itching Unspecified pruritic disorder Tobacco use Tobacco use disorder documented in this encounter"
--- OUTSIDE RECORDS SUMMARY | 2019-09-21 04:07 | XMS REPORT | Encounter Summary ---
Author Author [facility] Organization [facility] Address Unknown Phone Unavailable Care Team Providers Care Federal Aid Coordinator Name Role Phone Jeniffer Tamayo MD PCP Reason for Visit * Reason Comments Medication Refill Encounter Details Care Team Description Date Type Department Jeniffer Tamayo MD [address] [place] [address] 12/16/2014 Refill [facility] Primar y Care [address] [address] Social History Date Tobacco Use [...]
--- OUTSIDE RECORDS SUMMARY | 2019-09-21 04:07 | XMS REPORT | Encounter Summary ---
Author Author [facility] Organization 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 Name Role Phone Jeniffer Tamayo MD PCP Reason for Visit * Reason Comments Nausea Diarrhea x 1 week, once today - pt had gastric sleeve surgery in 2011 Abdominal Pain mid upper epigastric and an d into RUQ Pt reports belching and burning into her stomach and esophagus Weight Loss 7 lbs in this last week * Auth/Cert Referred By Contact Referred To Contact Status Reason Specialty Diagnoses / Procedures [facility] Emergency [address] [place] [address] Emergency Medicine Encounter Details Care Team Description Date Type Department Alden Sanders MD [address] [place] [address] Abdominal pain, acute, right upper quadr ant (Primary Dx); Gastritis 04/30/2015 Emergency [facility] Emergency Department [address] [address] Social History Date Tobacco Use [...] Signs Reading Time Taken Comments Vital Sign 117/66 04/30/2015 10:22 PM FLIGHT TEACHER Blood Pressure - - Pulse 36.8 C (98.2 F) 04/30/2015 8:21 PM FLIGHT TEACHER Temperature 18 04/30/2015 10:22 PM FLIGHT TEACHER Respiratory Rate 99% 04/30/2015 10:22 PM FLIGHT TEACHER Oxygen Saturation - - Inhaled Oxygen Concentration 75.8 kg (167 lb) 04/30/2015 8:25 PM FLIGHT TEACHER Weight 154.9 cm (5' 1") 04/30/2015 8:25 PM FLIGHT TEACHER Height 31.55 04/30/2015 8:25 PM FLIGHT TEACHER Body Mass Index documented in this encounter Discharge Instructions * Instructions* Alden Sanders MD - 04/30/2015 Try following a liquid or low fat diet to not irritate your stomach or gallbladd er. Check back with clinic if continued problems or not improving. You may also call Monday morning if you have continued pain so that you could sp eak with the radiology department and get ultrasound of gallbladder scheduled. Return for fever over 101 F, worsening pain or more problems THANK YOU FOR CHOOSING [facility]! Our goal is to provide you [...] a physician of your choice as needed. [facility]) is available Monday through Mon 7:00am to 7:00pm. [facility] is available Monday 10:00am to 7:00pm and Monday 8:00am to 5:00pm. [facility] is available Monday through Monday from 8:00am to 5:00 pm. [facility] [place] is available Monday through Monday from 7:00am to 7: 00pm. [facility] is available Monday and Monday from 7:00am to 7:00pm. You can reach any of the locations by dialiing [phone] or [phone]. Thank you for choosing [facility] for your health care needs. * Attachments The following attachments cannot be sent through Care Everywhere.* GASTRITIS (SAUDI ARABIAN) * ABDOMINAL PAIN (SAUDI ARABIAN) * GALLBLADDER DISEASE: LOW-FAT DIET (SAUDI ARABIAN) documented in this encounter Medications at Time of Discharge Start Date End Date Medication Sig Dispensed Refills 04/30/2015 05/01/2015 ondansetron (ZOFRAN ODT) Place 1 4 Tablet 0 4 mg Tablet, Rapid Tablet (4 mg) Dissolve under tongue every 6 hours as needed for Nausea/Emesis . 04/30/2015 05/02/2015 ondansetron (ZOFRAN ODT) Place 1 8 Tablet 1 4 mg Tablet, Rapid Tablet (4 mg) Dissolve under tongue every 6 hours as needed for Nausea/Emesis . 04/30/2015 05/10/2015 sucralfate (CARAFATE) 1 Take 1 Tablet 40 Tablet 0 gram tablet (1 Gram) by mouth 4 times daily before meals and at bedtime for 10 days For gastritis and abdominal pain. 04/17/2015 05/19/2015 amphetamine-dextroampheta Take 1 30 Capsule 0 mine (ADDERALL XR) 30 mg Capsule (30 Extended Release 24 hour mg) by mouth capsule daily commercial management accountant. 03/09/2015 05/19/2015 citalopram (CELEXA) 10 mg Take 1 Tablet 30 Tablet 1 tablet (10 mg) by mouth daily. documented as of this encounter ED Notes * Alden Sanders MD - 04/30/2015 8:28 PM FLIGHT TEACHER HISTORY OF PRESENT ILLNESS Opal Trimble, a 25 y.o. female presents to the ED with a Chief Complaint of Nausea; Diarrhea; Abdominal Pain; and Weight Loss Subjective HPI Comments: She has been having epigastric and RUQ abdominal pain for a week n ow. She has diarrhea with this as well but it has slowed down. She had a gastric sleeve so it is difficult for her to vomit. She has not tried to see the clinic about this because She thought it would just go away. Tonight her mom insisted she come to the ED to be seen. History provided by: The patient Arrived by: Private vehicle Nausea Severity: Moderate Duration: 1 week Timing: Constant Quality: Bilious material and stomach contents Able to tolerate: Liquids Chronicity: New Recent urination: Normal Relieved by: None tried Worsened by: Liquids and food smell (anything she eats makes her have burning p ain ) Associated symptoms: abdominal pain, diarrhea and headaches (from not eating) Associated symptoms: no chills, no cough, no fever, no sore throat and no URI Risk factors: no alcohol use, no diabetes, not now and no prior abdomin al surgery Diarrhea Associated symptoms: abdominal pain, headaches (from not eating) and vomiting (o nly 1 time) Associated symptoms: no chills, no recent cough, no fever and no URI Abdominal Pain Associated symptoms: diarrhea, nausea and vomiting (only 1 time) Associated symptoms: no chest pain, no chills, no constipation, no cough, no dys uria, no fever, no shortness of breath and no sore throat Weight Loss Associated symptoms: abdominal pain, diarrhea, headaches (from not eating), naus ea and vomiting (only 1 time) Associated symptoms: no chest pain, no cough, no fever, no rash, no shortness of breath and no sore throat REVIEW OF SYSTEMS Review of Systems Constitutional: Positive for weight loss. Negative for fever and chills. HENT: Negative for sore throat and trouble swallowing. Respiratory: Negative for cough and shortness of breath. Cardiovascular: Negative for chest pain. Gastrointestinal: Positive for nausea, vomiting (only 1 time), abdominal pain an d diarrhea. Negative for constipation, blood in stool and anal bleeding. Genitourinary: Negative for dysuria. Musculoskeletal: Negative for joint swelling and gait problem. Skin: Negative for rash. Allergic/Immunologic: Negative for immunocompromised state. Neurological: Positive for headaches (from not eating). Psychiatric/Behavioral: Negative for confusion. The patient is not nervous/anxio us. PAST MEDICAL HISTORY REVIEWED MEDICAL: Patient has [...] history includes Cancer in her paternal grandfather. SOCIAL: reports that she has quit smoking. Her smoking use included Cigarettes. She has a 2.5 pack-year smoking history. She has never used smokeless tobacco. She repo rts that she drinks alcohol. She reports that she uses illicit drugs (Marijuana) . She reports that she currently engages in sexual activity and has had male par tners. She reports using the following method of control/protection: None. No history on file. Social History Other Topics Concern Not on file PROBLEM LIST: Patient has ADD (attention deficit disorder); Anovulation; History of recurrent miscarriages, not currently ; Obesity; Multiple food allergies; Amenorrh ea; Pelvic pain in female; Abdominal pain; Hemoperitoneum; ADHD (attention defic it hyperactivity disorder); and Raynaud phenomenon on her problem list. ALLERGIES Sulfa (sulfonamide antibiotics) HOME MEDICATIONS Discharge Medication List as of 04/30/2015 10:16 PM START taking these medications Details !! ondansetron (ZOFRAN ODT) 4 mg Tablet, Rapid Dissolve Place 1 Tablet (4 mg) un mya tongue every 6 hours as needed for Nausea/Emesis., Disp-4 Tablet, R-0 !! ondansetron (ZOFRAN ODT) 4 mg Tablet, Rapid Dissolve Place 1 Tablet (4 mg) un mya tongue every 6 hours as needed for Nausea/Emesis., Disp-8 Tablet, R-1 sucralfate (CARAFATE) 1 gram tablet Take 1 Tablet (1 Gram) by mouth 4 times rhonda y before meals and at bedtime for 10 days For gastritis and abdominal pain., Dis p-40 Tablet, R-0 !! - Potential duplicate medications found. Please discuss with provider. 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., Disp-30 Capsule, R-0 baclofen (LIORESAL) 10 mg tablet Take 1 Tablet (10 mg) by mouth 3 times daily as needed for Pain., Disp-90 Tablet, R-0 citalopram (CELEXA) 10 mg tablet Take 1 Tablet (10 mg) by mouth daily., Disp-30 Tablet, R-1 STOP taking these medications traMADol (ULTRAM) 50 mg tablet Comments: Reason for Stopping: Objective PHYSICAL EXAM INITIAL VS BP: 105/61 mmHg (04/30/152020), Heart Rate: 93 bpm (04/30/152020), Resp: 20 (1 07/01/142020), Temp: 98.2 F (36.8 C) (04/30/152020), Temp src: Oral (2020), SpO2: 100 % (04/30/152020), Height: 5' 1" (154.9 cm) (04/30/152024), Weight: 75.751 kg (04/30/152024), BMI (Calculated): 31.62 (04/30/152024) Bhavna ent's last menstrual period was 04/25/2015. Physical Exam Constitutional: She is oriented to person, place, and time. She appears well-dev eloped and well-nourished. No distress. HENT: Head: Normocephalic and atraumatic. Mouth/Throat: Oropharynx is clear and moist. Cardiovascular: Normal rate, regular rhythm and intact distal pulses. Pulmonary/Chest: Effort normal and breath sounds normal. No respiratory distress . She has no wheezes. She has no rales. Abdominal: Soft. Bowel sounds are normal. She exhibits no distension, no abdomin al bruit and no pulsatile midline mass. There is tenderness in the right upper q uadrant and epigastric area. There is no rigidity, no rebound, no guarding, no t enderness at McBurney's point and negative Mendenhall's sign. Musculoskeletal: Normal range of motion. Neurological: She is alert and oriented to person, place, and time. Skin: Skin is warm and dry. She is not diaphoretic. Nursing note and vitals reviewed. DIAGNOSTICS LAB: Labs this ED Encounter COMPREHENSIVE METABOLIC PANEL - Abnormal POTASSIUM 3.3 (*) SODIUM 137 CHLORIDE 102 CO2 27 CALCIUM 9.0 BUN 10 CREATININE 0.67 GLUCOSE 90 TOTAL PROTEIN 7.7 ALBUMIN 4.2 BILIRUBIN TOTAL 0.7 ALKALINE PHOSPHATASE 62 AST 15 ALT 14 GFR >60 GFR, >60 ANION GAP 8 URINALYSIS WITH REFLEX CULTURE - Abnormal LEUKOCYTE ESTERASE UA Trace (*) WBC UA 3-5 (*) RBC UA 3-5 (*) BACTERIA UA 1+ (*) COLOR UA Pale Yellow CLARITY UA Clear SPECIFIC GRAVITY UA 1.007 PH UA 6.5 NITRITE UA Negative PROTEIN UA Negative GLUCOSE UA Negative KETONES UA Negative UROBILINOGEN UA <2.0 BILIRUBIN UA Negative BLOOD UA Negative EPITHELIAL CELLS, URINE 0-5 COMMENT, URINE Mucous: Few Narrative: Based on results, a urine culture has been reflexed. CBC WITH DIFFERENTIAL - Normal WBC 8.3 RBC 4.20 HEMOGLOBIN 13.3 HEMATOCRIT 38.8 MCV 92.5 MCH 31.7 MCHC 34.2 RDW 12.6 PLATELETS 237 MPV 8.1 NEUTROPHILS 70 LYMPHOCYTES 26 MONOCYTES 3 EOSINOPHILS 1 BASOPHILS 0 NEUTROPHIL ABSOLUTE 5.80 LYMPHOCYTE ABSOLUTE 2.15 MONOCYTE ABSOLUTE 0.24 EOSINOPHIL ABSOLUTE 0.06 BASOPHILS ABSOLUTE 0.03 LIPASE - Normal LIPASE 156 HCG QUALITATIVE, URINE - Normal HCG QUAL URINE Negative COLOR UA Pale Yellow CLARITY UA Clear URINE CULTURE RADIOLOGY: US ABDOMEN LIMITED (Results Pending) EKG: PROCEDURES Procedures MEDICAL DECISION MAKING AND PLAN OF CARE Will check labs and see if her pain is better after Zofran, Protonix and Toradol . Sounds like it might be her gallbladder but will see what the testing is showi ng. REEVALUATION Pain and nausea improved. Labs appear stable without elevation of liver enzyme s or signs of gallbladder obstruction/infection. Will try treating for gastritis and have her follow a low fat bland diet. Order for outpatient gallbladder ultr asound placed as well. Discharge on zofran and carafate and she wants to take zantac over the counter f or stomach acid. Counseled on follow up and return precautions. CASE DISCUSSED Medications Administered During the ED Stay from 04/30/20152010 to 04/30/2015 2 244 Date/Time Order Dose Route Action 04/30/20152046 sodium chloride 0.9 % flush injection 10 mL 10 mL IV Given 04/30/20152223 sodium chloride 0.9% bolus solution 1,000 mL 0 mL IV Stopped 04/30/20152049 sodium chloride 0.9% bolus solution 1,000 mL 1,000 mL IV New B ag 04/30/20152047 ondansetron (ZOFRAN) 4 mg/2 mL injection 4 mg 4 mg IV Given 04/30/20152054 pantoprazole (PROTONIX) injection 40 mg 40 mg IV Given 04/30/20152050 ketorolac (TORADOL) injection 30 mg 30 mg IV Given 04/30/20152158 sucralfate (CARAFATE) 100 mg/mL suspension 1 Gram 1 Gram Oral Given Discharge Medication List as of 04/30/2015 10:16 PM START taking these medications Details !! ondansetron (ZOFRAN ODT) 4 mg Tablet, Rapid Dissolve Place 1 Tablet (4 mg) un mya tongue every 6 hours as needed for Nausea/Emesis., Disp-4 Tablet, R-0 !! ondansetron (ZOFRAN ODT) 4 mg Tablet, Rapid Dissolve Place 1 Tablet (4 mg) un mya tongue every 6 hours as needed for Nausea/Emesis., Disp-8 Tablet, R-1 sucralfate (CARAFATE) 1 gram tablet Take 1 Tablet (1 Gram) by mouth 4 times rhonda y before meals and at bedtime for 10 days For gastritis and abdominal pain., Dis p-40 Tablet, R-0 !! - Potential duplicate medications found. Please discuss with provider. 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., Disp-30 Capsule, R-0 baclofen (LIORESAL) 10 mg tablet Take 1 Tablet (10 mg) by mouth 3 times daily as needed for Pain., Disp-90 Tablet, R-0 citalopram (CELEXA) 10 mg tablet Take 1 Tablet (10 mg) by mouth daily., Disp-30 Tablet, R-1 STOP taking these medications traMADol (ULTRAM) 50 mg tablet Comments: Reason for Stopping: LAST VS BP: 117/66 mmHg (04/30/152221), Heart Rate: 84 bpm (04/30/152221), Resp: 18 (1 07/01/142221), Temp: 98.2 F (36.8 C) (04/30/152020), Temp src: Oral (2020), SpO2: 99 % (04/30/152221) CLINICAL IMPRESSION Final diagnoses: [R10.11] Abdominal pain, acute, right upper quadrant (Primary) [K29.70] Gastritis CODING MDM Coding Reviewed: vitals and previous chart Reviewed previous: labs Interpretation: SP02 and labs I have reviewed nursing notes and agree unless otherwise mentioned. DISPOSITION, EDUCATION AND MEDICATION RECONCILIATION Medications reconciled. See after visit summary for patient education on discha rged patients. ATTESTATION STATEMENTS HT TEACHER documented in this encounter Plan of Treatment Not on filedocumented as of this encounter Procedures Comments Procedure Name Priority Date/Time Associated Diag nosis CBC WITH DIFFERENTIAL Stat 04/30/2015 8:45 PM FLIGHT TEACHER LIPASE Stat 04/30/2015 8:45 PM FLIGHT TEACHER COMPREHENSIVE METABOLIC Stat 04/30/2015 PANEL 8:45 PM FLIGHT TEACHER URINALYSIS WITH REFLEX Stat 04/30/2015 CULTURE 8:31 PM FLIGHT TEACHER URINE CULTURE Stat 04/30/2015 8:31 PM FLIGHT TEACHER HCG QUALITATIVE, URINE Stat 04/30/2015 8:31 PM FLIGHT TEACHER documented in this encounter Results * LIPASE (04/30/2015 8:45 PM FLIGHT TEACHER) LIPASE 156 84 - 319 U/L [facility] Specimen Blood Performing Organization Address City/State/Zipcode Ph one Number [facility] CLIA# [id number] [place], [place] [address] - [place] [address] [place] [address] * COMPREHENSIVE METABOLIC PANEL (04/30/2015 8:45 PM FLIGHT TEACHER) SODIUM 137 134 - 145 mmol/L [facility] - [place] POTASSIUM 3.3 (L) 3.5 - 5.1 mmol/L [facility] - [place] CHLORIDE 102 98 - 107 mmol/L [facility] - [place] CO2 27 22 - 31 mmol/L [facility] - [place] CALCIUM 9.0 8.5 - 10.1 mg/dL [facility] [place] BUN 10 7 - 20 mg/dL [facility] [place] CREATININE 0.67 0.51 - 0.95 mg/dL [facility] - [place] GLUCOSE 90 70 - 100 mg/dL [facility] [place] TOTAL PROTEIN 7.7 6.4 - 8.2 g/dL [facility] - [place] ALBUMIN 4.2 3.4 - 5.0 g/dL [facility] - [place] BILIRUBIN TOTAL 0.7 <=1.1 mg/dL [facility] [place] ALKALINE 62 46 - 116 U/L [facility] PHOSPHATASE [facility] - [place] AST 15 10 - 40 U/L [facility] [place] ALT 14 14 - 63 U/L [facility] [place] GFR >60 >=60 mL/min/1.73 sq [facility] Comment: meter LABORATORY eGFR has not been validated [facility] for use in the elderly (> [...] result. GFR, >60 >=60 mL/min/1.73 sq [facility] [place] meter LAB[facility]ATORY SERVICES - [place] ANION GAP 8 4 - 20 mmol/L [facility] - [place] Specimen Blood Performing Organization Address City/State/Zipcode Ph one Number [facility] CLIA# [id number] [place] [address] - [place] [address] [place] [address] * CBC WITH DIFFERENTIAL (04/30/2015 8:45 PM FLIGHT TEACHER) WBC 8.3 2.9 - 11.0 K/uL [facility] - [place] RBC 4.20 3.77 - 5.57 M/uL [facility] - [place] HEMOGLOBIN 13.3 11.9 - 16.3 g/dL [facility] - [place] HEMATOCRIT 38.8 34.4 - 51.6 % [facility] - [place] MCV 92.5 82.4 - 103.2 fL [facility] - [place] MCH 31.7 26.2 - 32.6 pg [facility] [place] MCHC 34.2 30.2 - 35.0 g/dL [facility] [place] RDW 12.6 11.1 - 14.5 % [facility] [place] PLATELETS 237 137 - 410 K/uL [facility] [place] MPV 8.1 7.4 - 11.9 fL [facility] [place] NEUTROPHILS 70 43 - 73 % [facility] [place] LYMPHOCYTES 26 19 - 47 % [facility] [place] MONOCYTES 3 3 - 9 % [facility] [place] EOSINOPHILS 1 0 - 6 % [facility] [place] BASOPHILS 0 0 - 1 % [facility] [place] NEUTROPHIL 5.80 1.30 - 7.60 K/uL [facility] ABSOLUTE [facility] - [place] LYMPHOCYTE 2.15 0.60 - 4.90 K/uL [facility]UTE [facility] - [place] MONOCYTE 0.24 0.10 - 0.90 K/uL [facility]UTE [facility] - [place] EOSINOPHIL 0.06 0.00 - 0.40 K/uL [facility]UTE [facility] - [place] BASOPHILS 0.03 0.00 - 0.10 K/uL [facility] ABSOLUTE [facility] - [place] Specimen Blood Performing Organization Address City/State/Zipcode Ph one Number [facility] CLIA# [id number] [place] [address] - [place] [address] [place] [address] * URINE CULTURE (04/30/2015 8:31 PM FLIGHT TEACHER) CULTURE >= 100,000 cfu/mL Klebsiella CECIL pneumoniae (A) LAB[facility]ATORY [facility] - [place] Specimen Urine - Urine specimen obtained by clean catch procedure (specimen) Antibiotic Method Susceptibility Organism AMPICILLIN/ SULBACTAM PEDRO MCG/ML 4 mcg/mL: Susceptible Klebsiella pneumoniae AMPICILLIN PEDRO MCG/ML >=32 mcg/mL: Resistant Klebsiella pneumoniae CEFAZOLIN PEDRO MCG/ML <=4 mcg/mL: Susceptible Klebsiella pneumoniae CEFTRIAXONE PEDRO MCG/ML <=1 mcg/mL: Susceptible Klebsiella pneumoniae CIPROFLOXACIN PEDRO MCG/ML <=0.25 mcg/mL: Susceptible Klebsiella pneumoniae ERTAPENEM PEDRO MCG/ML <=0.5 mcg/mL: Susceptible Klebsiella pneumoniae GENTAMICIN PEDRO MCG/ML <=1 mcg/mL: Susceptible Klebsiella pneumoniae IMIPENEM PEDRO MCG/ML <=0.25 mcg/mL: Susceptible Klebsiella pneumoniae LEVOFLOXACIN PEDRO MCG/ML <=0.12 mcg/mL: Susceptible Klebsiella pneumoniae NITROFURANTOIN PEDRO MCG/ML 64 mcg/mL: Intermediate Klebsiella pneumoniae TRIMETHOPRIM/ SULFAMETHOXAZOLE PEDRO MCG/ML <=20 mcg/mL: Susceptible Klebsiella pneumoniae Performing Organization Address [facility] one [facility] LAB[facility]ATORY SERVICES CLIA# [id number] [place] [address] - [place] [address] [place] [address] * HCG QUALITATIVE, URINE (04/30/2015 8:31 PM FLIGHT TEACHER) HCG QUAL URINE Negative Negative [facility] [place] COLOR UA Pale Yellow Pale to dark yellow [facility] [place] CLARITY UA Clear Clear [facility] [place] Specimen Urine Performing Organization Address [facility] one [facility] LAB[facility]ATORY SERVICES CLIA# [id number] [place] [address] - [address] * URINALYSIS WITH REFLEX CULTURE (04/30/2015 8:31 PM FLIGHT TEACHER) COLOR UA Pale Yellow Pale to dark yellow [facility] [place] CLARITY UA Clear Clear [facility] [place] SPECIFIC 1.007 1.003 - 1.035 [facility] GRAVITY UA [facility] - [place] PH UA 6.5 5.0 - 8.0 [facility] [place] LEUKOCYTE Trace (A) Negative [facility] ESTERASE [facility] - [place] NITRITE UA Negative Negative [facility] [place] PROTEIN UA Negative Negative [facility] [place] GLUCOSE UA Negative Negative [facility] [place] KETONES UA Negative Negative [facility] [place] UROBILINOGEN UA <2.0 <2.0 mg/dL [facility] [place] BILIRUBIN UA Negative Negative [facility] [place] BLOOD UA Negative Negative [facility] [place] WBC UA 3-5 (A) 0 - 2 /hpf [facility] [place] RBC UA 3-5 (A) 0 - 2 /hpf [facility] [place] BACTERIA UA 1+ (A) Negative /hpf [facility] [place] EPITHELIAL 0-5 0 - 5 /hpf [facility] CELLS, URINE [facility] - [place] COMMENT, URINE Mucous: Few [facility] [place] Specimen Urine Narrative Performed At Based on results, a urine culture has been reflexed. [facility] [place] Performing Organization Address City/State/[facility] Ph one Number [facility] CLIA# [id number] [place] [address] - [place] [address] [facility] documented in this encounter Visit Diagnoses Diagnosis Abdominal pain, acute, right upper quad rant - Primary Abdominal pain, right upper quadrant Gastritis Unspecified gastritis and gastroduodeni tis without mention of hemorrhage documented in this encounter Administered Medications Action Date Dose Rate Site Medication Order MAR Action 04/30/2015 8:51 PM FLIGHT TEACHER 30 mg Arm, Rig ht ketorolac (TORADOL) injection 30 mg Given 30 mg, IV, ONE TIME ONLY, 1 dose, Ingrid 04/30/15 at 2030, Routine 04/30/2015 8:48 PM FLIGHT TEACHER 4 mg ondansetron (ZOFRAN) 4 mg/2 mL injection Given 4 mg 4 mg, IV, ONE TIME ONLY, 1 dose, Ingrid 04/30/15 at 2030, Routine 04/30/2015 8:55 PM FLIGHT TEACHER 40 mg Arm, Rig ht pantoprazole (PROTONIX) injection 40 mg Given 40 mg, IV, ONE TIME ONLY, 1 dose, Ingrid 04/30/15 at 2030, Routine 04/30/2015 8:55 PM FLIGHT TEACHER 10 mL Arm, Rig ht sodium chloride 0.9 % flush injection 10 Given mL 10 mL, IV, TWO TIMES DAILY, First dose on Ingrid 04/30/15 at 2100, Until Discontinued, Routine 10 mL Arm, Right Given 04/30/2015 8:47 PM FLIGHT TEACHER 04/30/2015 8:50 PM FLIGHT TEACHER 1,000 mL 1000 mL/hr sodium chloride 0.9% bolus solution New Bag 1,000 mL 1,000 mL, IV, ONE TIME ONLY, 1 dose, Th u 04/30/15 at 2030, at 1,000 mL/hr, Administer over 60 Minutes, Routine 04/30/2015 9:59 PM FLIGHT TEACHER 1 Gram sucralfate (CARAFATE) 100 mg/mL Given suspension 1 Gram 1 Gram, Oral, ONE TIME ONLY, 1 dose, Th u 04/30/15 at 2200, Routine documented in this encounter
--- OUTSIDE RECORDS SUMMARY | 2019-09-21 04:07 | XMS REPORT | Encounter Summary ---
Author Author [facility] Organization [facility] Address Unknown Phone Unavailable Care Team Providers Care High School Drafting Teacher Name Role Phone Jeniffer Tamayo MD PCP Encounter Details Care Team Description Date Type Department Jeniffer Tamayo MD [address] [place] [address] 12/03/2014 Abstract [facility] Primar Care [place] [address] [place] [address] Social History Date Tobacco Use [...]
--- OUTSIDE RECORDS SUMMARY | 2019-09-21 04:07 | XMS REPORT | Encounter Summary ---
Author Author [facility] Organization [facility] Address Unknown Phone Unavailable Care Team Providers Care School Custodian Name Role Phone Jeniffer Tamayo MD PCP Encounter Details Care Team Description Date Type Department Jeniffer Tamayo MD [address] [place] [address] 12/01/2014 Abstract [facility] Primar Care [place] [address] [place] [address] Social History Date Tobacco Use [...]
--- OUTSIDE RECORDS SUMMARY | 2019-09-21 04:07 | XMS REPORT | Encounter Summary ---
Author Author [facility] Organization [facility] Address Unknown Phone Unavailable Care Team Providers Care Paid Intern Name Role Phone Jeniffer Tamayo MD PCP Reason for Visit * Reason Comments Medication Refill Encounter Details Care Team Description Date Type Department Jeniffer Tamayo MD [address] [place] [address] 03/18/2015 Refill [facility] Primar y Care [address] [address] Social History Date Tobacco Use [...]
--- OUTSIDE RECORDS SUMMARY | 2019-09-21 04:07 | XMS REPORT | Encounter Summary ---
Author Author [facility] Organization [facility] Address Unknown Phone Unavailable Care Team Providers Care Rocket Scientist Name Role Phone Jeniffer Tamayo MD PCP Encounter Details Care Team Description Date Type Department Jeniffer Tamayo MD [address] [place] [address] 05/05/2015 Orders Only [facility] Primar y Care [address] [address] Social History Date Tobacco [...]
--- OUTSIDE RECORDS SUMMARY | 2019-09-21 04:07 | XMS REPORT | Encounter Summary ---
Author Author [facility] Organization [facility] Address Unknown Phone Unavailable Care Team Providers Care Catechist Name Role Phone Jeniffer Tamayo MD PCP Reason for Visit * Reason Comments Medication Refill Encounter Details Care Team Description Date Type Department Jeniffer Tamayo MD [address] [place] [address] 02/17/2015 Refill [facility] Primar y Care [address] [address] Social History Date Tobacco Use [...]
--- OUTSIDE RECORDS SUMMARY | 2019-09-21 04:07 | XMS REPORT | Encounter Summary ---
Author Author [facility] Organization [facility] Address Unknown Phone Unavailable Care Team Providers Care Tool Sharpener Name Role Phone Jeniffer Tamayo MD PCP Reason for Visit * Reason Comments Medication Refill Encounter Details Care Team Description Date Type Department Jeniffer Tamayo MD [address] [place] [address] 02/18/2015 Refill [facility] Primar y Care [address] [address] Social History Date Tobacco Use [...]
--- OUTSIDE RECORDS SUMMARY | 2019-09-21 04:07 | XMS REPORT | Encounter Summary ---
Author Author [facility] Organization [facility] Address Unknown Phone Unavailable Care Team Providers Care Cut Off Saw Set Up Operator Name Role Phone Jeniffer Tamayo MD PCP Reason for Visit * Reason Comments Medication Refill Encounter Details Care Team Description Date Type Department Jeniffer Tamayo MD [address] [place] [address] 10/13/2014 Refill [facility] Primar y Care [address] [address] Social History Date Tobacco Use Types Packs/Day Years Used Current Every Day Smoker Cigarettes 0.5 5 Smokeless Tobacco: Never Used Drinks/Week oz/Week Comments Alcohol Use drinks on weekends Yes Sex Assigned at [...]
--- OUTSIDE RECORDS SUMMARY | 2019-09-21 04:07 | XMS REPORT | Encounter Summary ---
Author Author [facility] Organization [facility] Address Unknown Phone Unavailable Care Team Providers Care Air Compressor Operator Name Role Phone Jeniffer Tamayo MD PCP Reason for Visit * Reason Comments Medication Refill Encounter Details Care Team Description Date Type Department Jeniffer Tamayo MD [address] [place] [address] 04/17/2015 Refill [facility] Primar y Care [address] [address] Social History Date Tobacco Use [...]
--- OUTSIDE RECORDS SUMMARY | 2019-09-21 04:07 | XMS REPORT | Encounter Summary ---
Author Author [facility] Organization [facility] Address Unknown Phone Unavailable Care Team Providers Care Gis Software Developer Name Role Phone Jeniffer Tamayo MD PCP Reason for Visit * Reason Comments Shoulder Pain No known injury. Pt stated she has arthritis was given a medication to help with this. She is having pain sti ll and lost range of motion in her shoulder. Encounter Details Care Team Description Date Type Department Isabela Oreilly NP [address] [place] [address] Right shoulder pain (Primary Dx) 10/23/2014 Office Visit [facility] [address] [place] [address] Social History Date Tobacco Use [...] Signs Reading Time Taken Comments Vital Sign - - Blood Pressure 88 10/23/2014 4:16 PM CDT Pulse 36.1 C (97 F) 10/23/2014 4:16 PM CDT Temperature - - Respiratory Rate 98% 10/23/2014 4:16 PM CDT Oxygen Saturation - - Inhaled Oxygen Concentration 77.6 kg (171 lb) 10/23/2014 4:16 PM CDT Weight 156.2 cm (5' 1.5") 10/23/2014 4:16 PM CDT Height 31.79 10/23/2014 4:16 PM CDT Body Mass Index documented in this encounter Patient Instructions * Patient Instructions* Isabela Oreilly, MANAGER DEVELOPMENT - 10/23/2014 4:37 PM CDT Danica Patient Instructions Shoulder Pain: After Your Visit Your Care Instructions You can hurt your shoulder by using it too much during an activity, such as fish ing or baseball. It can also happen as part of the everyday wear and tear of get ting older. Shoulder injuries can be slow to heal, but your shoulder should get better with time. Your doctor may recommend a sling to rest your shoulder. If you have injured you r shoulder, you may need testing and treatment. Follow-up care is a daniel part of your treatment and safety. Be sure to make and g o to all appointments, and call your doctor if you are having problems. It's als o a good idea to know your test results and keep a list of the medicines you faustina e. How can you care for yourself at home? Take pain medicines exactly as directed. If the doctor gave you a prescription medicine for pain, take it as prescribe d. If you are not taking a prescription pain medicine, ask your doctor if you ca n take an uwau-tsk-dnlklla medicine. Do not take two or more pain medicines at the same time unless the doctor isabella d you to. Many pain medicines contain acetaminophen, which is Tylenol. Too much acetaminophen (Tylenol) can be harmful. If your doctor recommends that you wear a sling, use it as directed. Do not t brandon it off before your doctor tells you to. Put ice or a cold pack on the sore area for 10 to 20 minutes at a time. Put a thin cloth between the ice and your skin. If there is no swelling, you can put moist heat, a heating pad, or a warm matthias th on your shoulder. Some doctors suggest alternating between hot and cold. Rest your shoulder for a few days. If your doctor recommends it, you can then begin gentle exercise of the shoulder, but do not lift anything heavy. When should you call for help? Call 911 anytime you think you may need emergency care. For example, call if: You have chest pain or pressure. This may occur with: Sweating. Shortness of breath. Nausea or vomiting. Pain that spreads from the chest to the neck, jaw, or one or both shoulders o r arms. Dizziness or lightheadedness. A fast or uneven pulse. After calling 911, chew 1 adult-strength aspirin. Wait for an ambulance. Do not try to drive yourself. Your arm or hand is cool or pale or changes color. Call your doctor now or seek immediate medical care if: You have signs of infection, such as: Increased pain, swelling, warmth, or redness in your shoulder. Red streaks leading from a place on your shoulder. Pus draining from an area of your shoulder. Swollen lymph nodes in your neck, armpits, or groin. A fever. Watch closely for changes in your health, and be sure to contact your doctor if: You cannot use your shoulder. Your shoulder does not get better as expected. Where can you learn more? Go to [employer], choose I Want To... and then choose Search Medical Information. Enter H996 in the search box to learn more about "Shoulder Pain: After Your Visi t." Current as of: October 09, 2013 Content Version: 10.2 [id number] [employer]. Care instructions adapted under license b [employer]. [employer] disclaims any warranty or liability for your use of this informat ion. This information is not intended to represent the ethical and buddhist bel iefs of [employer]. This care instruction is for use with your licensed healthcare pr [facility]. If you have questions about a medical condition or this instruction, always ask your healthcare professional. [employer] disclaims any warranty or liability for your use of this information. documented in this encounter Progress Notes * Isabela Oreilly NP - 10/23/2014 4:18 PM CDT HISTORY OF PRESENT ILLNESS Opal Trimble, a 24 y.o. female. Subjective Shoulder Pain Associated symptoms: no fever Presents with c/o right shoulder pain and stiffness. Always has some pain in the shoulder. Last week the shoulder was grinding and popping. This morning the pain was worse with shooting pains to the elbow with arm extension and moving the arm away from her body. She works at [employer] belts that weigh as much as 50 lbs. Associated symptoms include recent diagnosis of possible rheumatoid art hritis, still waiting on tests that were done one month ago in [place] Dr Richardson. S he states that she has not been able to reach anyone at the office. She was give n imuran but wasn't able to tolerate the medication due to itching. Had to stop prednisone due to GI side effects post gastric sleeve surgery. Also not able to take NSAIDS. Pt denies fevers. Symptoms are worsened by movement and improved b y tramadol. Pertinent history reviewed.. History Substance Use Topics Smoking status: Current Some Day Smoker -- 0.50 packs/day for 5 years Types: Cigarettes Smokeless tobacco: Never Used Alcohol Use: 0.0 oz/week 0 Not specified per week Comment: drinks on weekends Past Medical History Diagnosis Date ADD (attention deficit disorder with hyperactivity) Obesity (BMI 30.0-39.9) 2008 Depression cymbalta .getlabs[24h REVIEW OF SYSTEMS Review of Systems Constitutional: Negative for fever and chills. HENT: Negative for congestion and sore throat. Eyes: Negative for visual disturbance. Respiratory: Negative for cough. Cardiovascular: Positive for leg swelling. Gastrointestinal: Negative for nausea and vomiting. Genitourinary: Negative for dysuria. Musculoskeletal: Positive for myalgias, joint swelling and arthralgias. Skin: Negative for rash. Neurological: Negative for light-headedness and headaches. Hematological: Negative for adenopathy. Psychiatric/Behavioral: Positive for sleep disturbance. Objective PHYSICAL EXAM Pulse 88 | Temp(Src) 97 F (36.1 C) | Ht 5' 1.5" (1.562 m) | Wt 171 lb (77.56 5 kg) | BMI 31.79 kg/m2 | SpO2 98% | LMP 09/22/2014 Physical Exam Constitutional: She is oriented to person, place, and time. She appears well-dev eloped and well-nourished. No distress. HENT: Head: Atraumatic. Eyes: Conjunctivae are normal. Neck: Normal range of motion. Cardiovascular: Normal rate, regular rhythm and normal heart sounds. Pulmonary/Chest: Effort normal and breath sounds normal. Musculoskeletal: Right shoulder: She exhibits decreased range of motion, tenderness and decr eased strength. She exhibits no swelling, no deformity and normal pulse. Pain to palpation over the anterior right shoulder. Not able to lift arm. Able t o rotate forearm without pain. There is normal warmth and sensation, distal puls es palpable with brisk capillary refill. Neurological: She is alert and oriented to person, place, and time. Skin: Skin is warm and dry. No rash noted. Psychiatric: She has a normal mood and affect. Her behavior is normal. Assessment ASSESSMENT and PLAN: ICD-9-CM ICD-10-CM 1. Right shoulder pain 719.41 M25.511 dexamethasone (DECADRON) injection 4 mg methylPREDNISolone Acetate (DEPO-MEDROL) injection 80 mg Rx as above Requested records from Dr Richardson Pt to contact Dr Tamayo's office tomorrow to discuss symptoms and inability to to lerate RA meds. She would like a referral to a different scale assembly set up worker. Avoid activities that cause pain Ice or heating pad at low setting Continue to use the tramadol she already has at home. documented in this encounter Plan of Treatment Not on filedocumented as of this encounter Visit Diagnoses Diagnosis Right shoulder pain - Primary Pain in joint, shoulder region documented in this encounter Administered Medications Action Date Dose Rate Site Medication Order MAR Action 10/23/2014 4:58 PM CDT 4 mg Thigh, R ight dexamethasone (DECADRON) injection 4 mg Given 4 mg, IM, ONE TIME ONLY, 1 dose, Ingrid 10/23/14 at 1645, Routine 10/23/2014 4:59 PM CDT 80 mg Thigh, R ight methylPREDNISolone Acetate (DEPO-MEDROL) Given injection 80 mg 80 mg, IM, ONE TIME ONLY, 1 dose, Ingrid 10/23/14 at 1645, Routine documented in this encounter
--- OUTSIDE RECORDS SUMMARY | 2019-09-21 04:07 | XMS REPORT | Encounter Summary ---
Author Author [facility] Organization [facility] Address Unknown Phone Unavailable Care Team Providers Care Furnace Utility Operator Name Role Phone Jeniffer Tamayo MD PCP Reason for Referral * Consult, Test & Treat (Routine) Referred By Contact Referred To Contact Status Reason Specialty Diagnoses / Procedures Jeniffer Tamayo MD [address] [place] [address] Michael Riley MD [address] [place] [address] Closed Otolaryngology Diagnoses Sore throat Reason for Visit * Reason Comments Other needs a release to return t o work after shoulder injury Sore Throat Encounter Details Care Team Description Date Type Department Jeniffer Tamayo MD [address] [place] [address] Left shoulder pain (Primary Dx); Sore throat; Major depressive disorder, recurrent episode, moderate 03/09/2015 Office Visit [facility] Primar y Care [place] [address] [place] [address] Social History Date Tobacco Use [...] Signs Reading Time Taken Comments Vital Sign 130/80 03/09/2015 1:41 PM CLAM DREDGE BOAT CAPTAIN Blood Pressure - - Pulse - - Temperature - - Respiratory Rate - - Oxygen Saturation - - Inhaled Oxygen Concentration 80.3 kg (177 lb) 03/09/2015 1:41 PM CLAM DREDGE BOAT CAPTAIN Weight 154.9 cm (5' 1") 03/09/2015 1:41 PM CLAM DREDGE BOAT CAPTAIN Height 33.44 03/09/2015 1:41 PM CLAM DREDGE BOAT CAPTAIN Body Mass Index documented in this encounter Progress Notes * Jeniffer Tamayo MD - 03/09/2015 1:52 PM CLAM DREDGE BOAT CAPTAIN HISTORY OF PRESENT ILLNESS Opal Trimble, a 24 y.o. female. Subjective HPI Taken off of work for left shoulder pain after lifting and overuse injury. Has been resting the last month and a half, and would like to be released back to wo rk. Would like to try different depression medication. Cymbalta didn't work. Would like referral for tonsils out. Recurrent strep and pain. REVIEW OF SYSTEMS Review of Systems Constitutional: Negative for fever and chills. HENT: Negative for congestion. Respiratory: Negative for chest tightness and shortness of breath. Cardiovascular: Negative for palpitations. Psychiatric/Behavioral: Positive for dysphoric mood. Negative for suicidal ideas and self-injury. The patient is nervous/anxious. The patient is not hyperactive. Objective PHYSICAL EXAM BP 130/80 mmHg | Ht 5' 1" (1.549 m) | Wt 177 lb (80.287 kg) | BMI 33.46 kg/m2 | LMP 02/23/2015 Physical Exam Constitutional: She is oriented to person, place, and time. She appears well-dev eloped and well-nourished. No distress. HENT: Head: Normocephalic and atraumatic. Tonsils irritated; not enlarged. Eyes: Pupils are equal, round, and reactive to light. Musculoskeletal: She exhibits no edema. Neurological: She is alert and oriented to person, place, and time. Psychiatric: She has a normal mood and affect. Her behavior is normal. Judgment and thought content normal. Assessment ASSESSMENT and PLAN: ICD-9-CM ICD-10-CM 1. Left shoulder pain 719.41 M25.512 2. Sore throat 462 J02.9 AMB REFERRAL TO ENT 3. Major depressive disorder, recurrent episode, moderate 296.32 F33.1 Will release her back to work. Recommend taking it easy with lifting. Try celexa. Would like to be referred to possible tonsillectomy. Orders Placed This Encounter Michael Riley baclofen (LIORESAL) 10 mg tablet citalopram (CELEXA) 10 mg tablet DREDGE BOAT CAPTAIN documented in this encounter Plan of Treatment Order Schedule Name Type Priority Associated Diag noses Ordered: 03/09/2015 AMB REFERRAL TO ENT Outpatient Routine Sore throa t Referral documented as of this encounter Visit Diagnoses Diagnosis Left shoulder pain - Primary Pain in joint, shoulder region Sore throat Acute pharyngitis Major depressive disorder, recurrent ep isode, moderate documented in this encounter
--- OUTSIDE RECORDS SUMMARY | 2019-09-21 04:07 | XMS REPORT | Encounter Summary ---
Author Author [facility] Organization [facility] Address Unknown Phone Unavailable Care Team Providers Care Wetlands Technician Name Role Phone Jeniffer Tamayo MD PCP Reason for Visit * Reason Comments Eye Swelling Rt eye, pt has had symptoms on and off for 6 mos Other tongue is green and pt comp lains of bad breath, brushed teeth multiple times and neither will go away Ear Problem pt cannot out of Rt ear, no ticed 3 mos ago Encounter Details Care Team Description Date Type Department Jeniffer Tamayo MD [address] [place] [address] Eye pain, right (Primary Dx) 11/17/2014 Office Visit [facility] [address] [place] [address] Social History Date Tobacco Use [...] Signs Reading Time Taken Comments Vital Sign 108/70 11/17/2014 10:45 AM CDT Blood Pressure - - Pulse 36.4 C (97.6 F) 11/17/2014 10:45 AM CDT Temperature - - Respiratory Rate - - Oxygen Saturation - - Inhaled Oxygen Concentration 77.1 kg (170 lb) 11/17/2014 10:45 AM CDT Weight 154.9 cm (5' 1") 11/17/2014 10:45 AM CDT Height 32.12 11/17/2014 10:45 AM CDT Body Mass Index documented in this encounter Progress Notes * Jeniffer Tamayo MD - 11/17/2014 10:55 AM CDT HISTORY OF PRESENT ILLNESS Opal Trimble, a 24 y.o. female. Subjective HPI Chief Complaint Patient presents with Eye Swelling Rt eye, pt has had symptoms on and off for 6 mos Other tongue is green and pt complains of bad breath, brushed teeth multiple times a nd neither will go away Ear Problem pt cannot out of Rt ear, noticed 3 mos ago Last had a headache. Got worse and wasn't able to get out of bed. 3 d ays. Last night, right eye was swollen shut. Took one azithromycin. It got be tter. She doesn't feel like it is sinusitis. Going to machine mover in [place]. Dr. Richardson. Nausea. No vomiting or diarrhea. REVIEW OF SYSTEMS Review of Systems Constitutional: Negative for fever, chills and unexpected weight change. Respiratory: Negative for shortness of breath. Cardiovascular: Negative for chest pain. Objective PHYSICAL EXAM BP 108/70 mmHg | Temp(Src) 97.6 F (36.4 C) | Ht 5' 1" (1.549 m) | Wt 170 lb (77.111 kg) | BMI 32.14 kg/m2 | LMP 09/22/2014 Physical Exam Constitutional: She appears well-developed and well-nourished. No distress. Eyes: Pupils are equal, round, and reactive to light. No swelling or redness of the eyes at this time. Assessment ASSESSMENT and PLAN: ICD-9-CM ICD-10-CM 1. Eye pain, right 379.91 H57.11 Orders Placed This Encounter predniSONE (DELTASONE) 20 mg tablet Will give her a short course of prednisone to help with symptoms. Not sure what rheumatologic problems she is having as I have no records from machine mover. She will sign records release. documented in this encounter Plan of Treatment Not on filedocumented as of this encounter Visit Diagnoses Diagnosis Eye pain, right - Primary documented in this encounter
--- OUTSIDE RECORDS SUMMARY | 2019-09-21 04:07 | XMS REPORT | Encounter Summary ---
Author Author [facility] Organization [facility] Address Unknown Phone Unavailable Care Team Providers Care Wood Scrap Handler Name Role Phone Jeniffer Tamayo MD PCP Emelia Caldwell MD PCP Unavailable Encounter Details Care Team Description Date Type Department Zohreh Ordoñez RN 10/30/2014 Nurse Triage [facility] ABSTRACTION Report Social History Date Tobacco Use Types Packs/Day [...] as of this encounter Progress Notes * Zohreh Ordoñez, RN - 10/30/2014 12:10 AM CDT CHART DOCUMENTATION ONLY Call Type: Triage Call Addendum Date and Time [id number] Presenting Problem: "My right leg is numb." Associated Symptoms: Whole body "tingles and feels restless" while lying down, t oes turns purple when lying down, right leg more swollen, toes look out of place (crossing over each other) Onset: 7 days ago, worse for 3 days Location: Right leg Pain Assessment: 1 - 10 with 10 being the most severe pain 7 Treatment so far for current presenting problem: ibuprofen, epsom salt bath, pep permint essential oil History (Clinical Problems): (Denies) Medications: gingerroot, tumeric Medication reactions: sulfa <<<<<<<< TRIAGE NOTE >>>>>>>> Triage Note: Folding Machine Tender Zohreh Ordoñez added this note on Oct 30 2014 12:10AM: Th e patient states that she started having numbness and tingling in her leg a week ago and her symptoms are worsening. The states that her physician has multiple offices and she has tried to make appointments without success. Disposition per triage. <<<<<<<< TRIAGE/OUTCOME >>>>>>>> Guideline Title: Leg Non-Injury Recommended Disposition: See ED Immediately Original Inclination: Seek Care in ER Intended Action: Seek care in ER Physician Contacted: No New onset of severe pain AND change in sensation (numb, tingling, or no feeling) , change in color (pale or blue), feels cool to touch compared to other extremit y. ? YES documented in this encounter Plan of Treatment Not on filedocumented as of this encounter Visit Diagnoses Not on filedocumented in this encounter
--- OUTSIDE RECORDS SUMMARY | 2019-09-21 04:07 | XMS REPORT | Encounter Summary ---
Author Author [facility] Organization [facility] Address Unknown Phone Unavailable Care Team Providers Care Behaviour Support Teacher Name Role Phone Jeniffer Tamayo MD PCP Encounter Details Care Team Description Date Type Department Leisure, Marlyn Langford APRN NO ADDRESS ON FILE Acute cystitis without hematuria (Primar y Dx) 05/03/2015 Orders Only [facility] [address] [address] Social History Date Tobacco Use [...] of this encounter Visit Diagnoses Diagnosis Acute cystitis without hematuria - Prim jerry Acute cystitis documented in this encounter
--- OUTSIDE RECORDS SUMMARY | 2019-09-21 04:07 | XMS REPORT | Encounter Summary ---
Author Author [facility] Organization [facility] Address Unknown Phone Unavailable Care Team Providers Care German Professor Name Role Phone Jeniffer Tamayo MD PCP Encounter Details Care Team Description Date Type Department Parveen Reyna MD NO ADDRESS ON FILE [facility], Lab Schedule 01/06/2015 Hospital [facility] General Encounter Laboratory Services [address] [phone] Social History Date Tobacco Use [...] Date End Date Medication Sig Dispensed Refills 12/16/2014 01/15/2015 amphetamine-dextroampheta Take 1 Cap 30 Cap 0 mine (ADDERALL XR) 30 mg (30 mg) by Extended Release 24 hour mouth daily capsule equipment technician. documented as of this encounter Plan of Treatment Not on filedocumented as of this encounter Visit Diagnoses Not on filedocumented in this encounter
--- OUTSIDE RECORDS SUMMARY | 2019-09-21 04:07 | XMS REPORT | Encounter Summary ---
Author Author [facility] Organization [facility] Address Unknown Phone Unavailable Care Team Providers Care Strategic Insights Lead Name Role Phone Jeniffer Tamayo MD PCP Reason for Visit * Reason Comments Insomnia reports she hasnt slept in 3 days. Leg Pain reports her legs turn purpl e and then white sometimes. Been going on for a while now. Encounter Details Care Team Description Date Type Department Matthew Walker MD NO ADDRESS ON FILE Raynaud phenomenon (Primary Dx) 10/30/2014 Emergency [facility] Emergency Department [address] [phone] Social History Date Tobacco Use Types Packs/Day [...] Signs Reading Time Taken Comments Vital Sign 125/57 10/30/2014 12:44 AM CDT Blood Pressure 98 10/30/2014 12:44 AM CDT Pulse 36.7 C (98 F) 10/30/2014 12:44 AM CDT Temperature 14 10/30/2014 12:44 AM CDT Respiratory Rate 100% 10/30/2014 12:44 AM CDT Oxygen Saturation - - Inhaled Oxygen Concentration 77.6 kg (171 lb) 10/30/2014 12:44 AM CDT Weight 154.9 cm (5' 1") 10/30/2014 12:44 AM CDT Height 32.31 10/30/2014 12:44 AM CDT Body Mass Index documented in this encounter Discharge Instructions * Instructions* Matthew Walker MD - 10/30/2014 Will continue ibuprofen but use tramadol days and hydrocodone two every four ho urs as needed for pain after work and at night. Follow up with your rheumatologi st or check with Dr Tamayo. * Attachments The following attachments cannot be sent through Care Everywhere.* INSOMNIA (SURINAMESE) documented in this encounter Medications at Time of Discharge Start Date End Date Medication Sig Dispensed Refills 10/13/2014 11/13/2014 amphetamine-dextroampheta Take 1 Cap 30 Cap 0 mine (ADDERALL XR) 30 mg (30 mg) by Extended Release 24 hour mouth daily capsule cpr instructor. documented as of this encounter ED Notes * Matthew Walker MD - 10/30/2014 12:55 AM CDT HISTORY OF PRESENT ILLNESS Opal Trimble, a 24 y.o. female presents to the ED with a Chief Complaint of Insomnia and Leg Pain Subjective Several weeks of intermittent numbness in feet, with changes in color when she l ays down in her toes, either pale or dark. 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 Cant sleep at night due to this. History provided by: The patient Leg Pain Associated symptoms: no fever REVIEW OF SYSTEMS Review of Systems Constitutional: Negative for fever and chills. Respiratory: Negative for chest tightness and shortness of breath. Cardiovascular: Negative for chest pain. Gastrointestinal: Negative for nausea and diarrhea. PAST MEDICAL HISTORY REVIEWED MEDICAL: Patient has [...] paternal grandfather. SOCIAL: reports that she has been smoking [...] Patient has ADD (attention deficit disorder); Anovulation; Encounter to discuss test results; History of recurrent miscarriages, not currently ; Postope rative follow-up; Vaginal odor; Obesity; Multiple food allergies; Well woman exa m with routine gynecological exam; Amenorrhea; Pelvic pain in female; Positive p regnancy test; Ectopic ; Ectopic , tubal; Abdominal pain; Hemo peritoneum; Corneal foreign body; ADHD (attention deficit hyperactivity disorder ); and Raynaud phenomenon on her problem list. ALLERGIES Sulfa (sulfonamide antibiotics) HOME MEDICATIONS Patient's Home Medications Current Home Medications AMPHETAMINE-DEXTROAMPHETAMINE (ADDERALL XR) 30 MG EXTENDED RELEASE 24 HOUR CAPS ULE CETIRIZINE (ZYRTEC) 10 MG TABLET CYCLOBENZAPRINE (FLEXERIL) 5 MG TABLET FLUTICASONE (FLONASE) 50 MCG/SPRAY SPRAY, SUSPENSION PREDNISONE (DELTASONE) 50 MG TABLET TRAMADOL (ULTRAM) 50 MG TABLET Medications Modified during this Encounter Medications Discontinued during this Encounter Objective PHYSICAL EXAM INITIAL VS BP: 125/57 mmHg (10/30/1443), Heart Rate: 98 bpm (10/30/1443), Resp: 14 (0 10/30/1443), Temp: 98 F (36.7 C) (10/30/1443), Temp src: Oral (10/30/1443), SpO2: 100 % (10/30/1443), Height: 5' 1" (154.9 cm) (10/30/1443), W eight: 77.565 kg (10/30/1443), BMI (Calculated): 32.38 (10/30/1443) Rea calvillo's last menstrual period was 09/22/2014. Physical Exam Constitutional: She is oriented to person, place, and time. She appears well-dev eloped and well-nourished. No distress. Cardiovascular: Normal rate, regular rhythm and intact distal pulses. Pulmonary/Chest: Effort normal and breath sounds normal. Neurological: She is alert and oriented to person, place, and time. Skin: Skin is warm. No rash noted. No erythema. DIAGNOSTICS LAB: RADIOLOGY: No orders to display EKG: PROCEDURES Procedures MEDICAL DECISION MAKING AND PLAN OF CARE REEVALUATION CASE DISCUSSED . New Prescriptions for this Encounter HYDROCODONE-ACETAMINOPHEN (NORCO) 5-325 MG TABLET Take 2 Tabs by mouth every 4 hours as needed (pain). Max Daily Amount: 12 Tabs HYDROCODONE-ACETAMINOPHEN (NORCO) 5-325 MG TABLET Take 2 Tabs by mouth every 4 hours as needed (pain). Max Daily Amount: 12 Tabs LAST VS BP: 125/57 mmHg (10/30/1443), Heart Rate: 98 bpm (10/30/1443), Resp: 14 (0 10/30/1443), Temp: 98 F (36.7 C) (10/30/1443), Temp src: Oral (10/30/1443), SpO2: 100 % (10/30/1443) CLINICAL IMPRESSION Final diagnoses: [443.0] Raynaud phenomenon (Primary) CODING Coding DISPOSITION, EDUCATION AND MEDICATION RECONCILIATION Medications reconciled. See after visit summary for patient education on discha rged patients. Pulses very good and color normal now. No warmth or inflammatory changes in join ts now. Will continue ibuprofen but use tramadol days and hydrocodone two every four hours as needed for pain after work and at night. Follow up with your rheum atologist or check with Dr Tamayo. documented in this encounter Plan of Treatment Not on filedocumented as of this encounter Visit Diagnoses Diagnosis Raynaud phenomenon - Primary Raynaud's syndrome documented in this encounter
--- OUTSIDE RECORDS SUMMARY | 2019-09-21 04:07 | XMS REPORT | Encounter Summary ---
Author Author [facility] Organization [facility] Address Unknown Phone Unavailable Care Team Providers Care Desktop Support Engineer Name Role Phone Jeniffer Tamayo MD PCP Reason for Visit * Reason Comments Shoulder Pain left Encounter Details Care Team Description Date Type Department Parveen Reyna MD NO ADDRESS ON FILE Muscle spasm of left shoulder (Primary D x); Strain of shoulder, left, initial encounter 01/06/2015 Emergency [facility] Emergency Department [address] [phone] Social History Date Tobacco Use Types Packs/Day [...] Signs Reading Time Taken Comments Vital Sign 132/81 01/06/2015 8:13 PM CDT Blood Pressure - - Pulse 36.4 C (97.6 F) 01/06/2015 8:13 PM CDT Temperature 15 01/06/2015 8:13 PM CDT Respiratory Rate 100% 01/06/2015 8:13 PM CDT Oxygen Saturation - - Inhaled Oxygen Concentration 74.8 kg (165 lb) 01/06/2015 8:13 PM CDT Weight 154.9 cm (5' 1") 01/06/2015 8:13 PM CDT Height 31.18 01/06/2015 8:13 PM CDT Body Mass Index documented in this encounter Discharge Instructions * Instructions* Renee Medina RN - 01/06/2015 Follow up with work comp dr as directed by employer Medication as ordered * Attachments The following attachments cannot be sent through Care Everywhere.* MUSCLE STRAIN (PALESTINIAN) documented in this encounter Medications at Time of Discharge Start Date End Date Medication Sig Dispensed Refills 12/16/2014 01/15/2015 amphetamine-dextroampheta Take 1 Cap 30 Cap 0 mine (ADDERALL XR) 30 mg (30 mg) by Extended Release 24 hour mouth daily capsule middle stitcher. documented as of this encounter ED Notes * Renee Medina RN - 01/06/2015 9:04 PM CDT Pt with lab for work comp drug screen. * Beata Reyna MD - 01/06/2015 8:43 PM CDT HISTORY OF PRESENT ILLNESS Opal Trimble, a 24 y.o. female presents to the ED with a Chief Complaint of Shoulder Pain Subjective HPI Comments: 3-4 weeks L upper shoulder pain and spasm. Lifting at work initial ly felt a "pop" and spasm.with pain. Had a second event lifting with a "pop" and spasm L upper shoulder a week later. Slow progression of worsening ache and spa sm in L upper shoulder since that time. No numb or tingling. No weakness except affected by pain. Shoulder Pain Associated symptoms: no fatigue and no fever REVIEW OF SYSTEMS Review of Systems Constitutional: Negative for fever, activity change, appetite change, fatigue an d unexpected weight change. HENT: Negative for congestion. Respiratory: Negative for shortness of breath. Cardiovascular: Negative for chest pain. Gastrointestinal: Negative for abdominal pain. Genitourinary: Negative for menstrual problem. Musculoskeletal: Positive for myalgias. Negative for arthralgias and neck stiffn ess. Neurological: Negative for weakness and numbness. PAST MEDICAL HISTORY REVIEWED MEDICAL: Patient has [...] CAPS ULE CETIRIZINE (ZYRTEC) 10 MG TABLET FLUTICASONE (FLONASE) 50 MCG/SPRAY SPRAY, SUSPENSION GABAPENTIN (NEURONTIN) 300 MG CAPSULE TRAMADOL (ULTRAM) 50 MG TABLET Medications Modified during this Encounter Medications Discontinued during this Encounter Objective PHYSICAL EXAM INITIAL VS BP: 132/81 mmHg (01/06/152012), Heart Rate: 102 bpm (01/06/152012), Resp: (not recorded), Temp: 97.6 F (36.4 C) (01/06/152012), Temp src: Tympanic (01/06), SpO2: 100 % (01/06/152012), Height: 5' 1" (154.9 cm) (01/06/152012) , Weight: 74.844 kg (01/06/152012), BMI (Calculated): 31.24 (01/06/152012) No LMP recorded. Physical Exam Constitutional: She [...] heart sounds and intact dist al pulses. Pulmonary/Chest: Effort normal and breath sounds normal. Abdominal: Soft. Bowel sounds are normal. Musculoskeletal: Normal range of motion. She exhibits tenderness (L upper should er with spasm and induration. FROM but with pain.). Neurological: She is alert and oriented to person, place, and time. Skin: Skin is warm and dry. Nursing note and vitals reviewed. DIAGNOSTICS LAB: RADIOLOGY: XR SHOULDER 2+ VW LEFT Radiologist Impression RADIOLOGIC EXAM: Left shoulder 3 views INDICATION: Left shoulder pain FINDINGS: No fracture, dislocation, or other osseous abnormality identified. IMPRESSION IMPRESSION: Negative left shoulder. Electronically Signed By: Cem Salomon MD, Signed On: 01/06/2015 8:39 PM EKG: PROCEDURES Procedures MEDICAL DECISION MAKING AND PLAN OF CARE REEVALUATION CASE DISCUSSED . New Prescriptions for this Encounter LAST VS BP: 132/81 mmHg (01/06/152012), Heart Rate: 102 bpm (01/06/152012), Resp: (not recorded), Temp: 97.6 F (36.4 C) (01/06/152012), Temp src: Tympanic (01/06), SpO2: 100 % (01/06/152012) CLINICAL IMPRESSION Final diagnoses: [728.85] Muscle spasm of left shoulder (Primary) [840.9] Strain of shoulder, left, initial encounter CODING MDM Coding Reviewed: previous chart and vitals Reviewed previous: x-ray Interpretation: x-ray DISPOSITION, EDUCATION AND MEDICATION RECONCILIATION Medications reconciled. See after visit summary for patient education on discha rged patients. ATTESTATION STATEMENTS Note for work restricting use L arm to 10 # over next 10 days., streatching, hea t, analgesia ( she has Ultram). Flexeril. follow up with PCP * Renee Medina, RN - 01/06/2015 8:20 PM CDT Pt states she injured her shoulder 3-4 months ago, states it is a work comp but has no supervisor broadloom present at this time. Pt states pain is progressively worse w ith repetitive movement. documented in this encounter Plan of Treatment Not on filedocumented as of this encounter Procedures Comments Procedure Name Priority Date/Time Associated Diag nosis XR SHOULDER 2+ VW LEFT Stat 01/06/2015 8:30 PM CDT documented in this encounter Results * XR SHOULDER 2+ VW LEFT (01/06/2015 8:30 PM CDT) Specimen Impressions Performed At IMPRESSION: INTERFACE SYSTEM Negative left shoulder. Electronically Signed By: Cem borden MD, Signed On: 01/06/2015 8:39 PM Narrative Performed At RADIOLOGIC EXAM: Left shoulder 3 views INTERFACE SYS TEM INDICATION: Left shoulder pain FINDINGS: No fracture, dislocation, or other osseous abnormality identified. Procedure Note Minh Reid Incoming Radiology Results - 01/06/2015 8:44 PM CDT RADIOLOGIC EXAM: Left shoulder 3 views INDICATION: Left shoulder pain FINDINGS: No fracture, dislocation, or other osseous abnormality identified. IMPRESSION IMPRESSION: Negative left shoulder. Electronically Signed By: Cem Salomon MD, Signed On: 01/06/2015 8:39 PM Performing Organization Address City/State/Zipcode Ph one Number INTERFACE SYSTEM INTERFACE SYSTEM Refer to clinic/hospital department documented in this encounter Visit Diagnoses Diagnosis Muscle spasm of left shoulder - Primary Strain of shoulder, left, initial encou nter documented in this encounter
--- OUTSIDE RECORDS SUMMARY | 2019-09-21 04:07 | XMS REPORT | Encounter Summary ---
Author Author [facility] Organization [facility] Address Unknown Phone Unavailable Care Team Providers Care Band Reamer Machine Operator Name Role Phone Jeniffer Tamayo MD PCP Reason for Visit * Reason Comments Medication Refill Encounter Details Care Team Description Date Type Department Jeniffer Tamayo MD [address] [place] [address] 11/13/2014 Refill [facility] Primar y Care [address] [phone] Social History Date Tobacco Use [...]
--- OUTSIDE RECORDS SUMMARY | 2019-09-21 04:07 | XMS REPORT | Encounter Summary ---
Author Author [facility] Organization [facility] Address Unknown Phone Unavailable Care Team Providers Care Traffic Line Painter Name Role Phone Jeniffer Tamayo MD PCP Reason for Visit * Reason Comments Medication Refill Encounter Details Care Team Description Date Type Department Jeniffer Tamayo MD [address] [place] [address] 01/15/2015 Refill [facility] Primar y Care [address] [phone] Social History Date Tobacco [...]
--- OUTSIDE RECORDS SUMMARY | 2019-09-21 04:07 | XMS REPORT | Encounter Summary ---
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, subsequent encounter 11/21/2014 Office Visit [address] [phone] Social History Date Tobacco Use [...] Signs Reading Time Taken Comments Vital Sign 124/74 11/21/2014 3:43 PM CDT Blood Pressure - - Pulse 37.1 C (98.7 F) 11/21/2014 3:43 PM CDT Temperature - - Respiratory Rate - - Oxygen Saturation - - Inhaled Oxygen Concentration 77.6 kg (171 lb) 11/21/2014 3:43 PM CDT Weight 154.9 cm (5' 1") 11/21/2014 3:43 PM CDT Height 32.31 11/21/2014 3:43 PM CDT Body Mass Index documented in this encounter Progress Notes * Jeniffer Tamayo MD - 11/24/2014 1:08 PM CDT HISTORY OF PRESENT ILLNESS Opal Trimble, a 24 y.o. female. Subjective HPI Chief Complaint Patient presents with Hives x all week Allergic Reaction ?, gamez & cheese burrito, throat started to swell up yesterday after taking a bite Ear Drainage bilat, x3 mos REVIEW OF SYSTEMS Review of Systems Constitutional: Negative for fever and chills. HENT: Positive for ear pain. Objective PHYSICAL EXAM BP 124/74 mmHg | Temp(Src) 98.7 F (37.1 C) | Ht 5' 1" (1.549 m) | Wt 171 lb (77.565 kg) | BMI 32.33 kg/m2 | LMP 09/22/2014 Physical Exam Constitutional: She appears well-developed and well-nourished. No distress. HENT: Head: Normocephalic and atraumatic. Eyes: Bilateral TM's with fluid opaque Cardiovascular: Normal rate and regular rhythm. Assessment ASSESSMENT and PLAN: ICD-9-CM ICD-10-CM 1. Bilateral otitis media with effusion 381.4 H65.93 2. 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 Treat and she will see Dr. Riley if fluid not resolved in ears. documented in this encounter Plan of Treatment Not on filedocumented as of this encounter Visit Diagnoses Diagnosis Bilateral otitis media with effusion - Primary Nonsuppurative otitis media, not specif ied as acute or chronic Anaphylaxis due to food, subsequent enc ounter documented in this encounter
--- OUTSIDE RECORDS SUMMARY | 2019-09-21 04:07 | XMS REPORT | Encounter Summary ---
Author Author [facility] Organization [facility] Address Unknown Phone Unavailable Care Team Providers Care Senior Policy Analyst Name Role Phone Jeniffer Tamayo MD PCP Encounter Details Care Team Description Date Type Department Jeniffer Tamayo MD [address] [place] [address] 12/25/2014 Abstract [facility] Primar Care [place] [address] [place] [address] Social History Date Tobacco Use [...]
--- OUTSIDE RECORDS SUMMARY | 2019-09-21 04:08 | XMS REPORT | Encounter Summary ---
Author Author [facility] Organization [facility] Address Unknown Phone Unavailable Care Team Providers Care Multi Craft Maintenance Technician Name Role Phone Jeniffer Tamayo MD PCP Encounter Details Care Team Description Date Type Department Jeniffer Tamayo MD [address] [place] [address] 03/25/2014 Abstract [facility] Primar Care [place] [address] [place] [address] Social History Date Tobacco Use Types Packs/Day Years Used Former Smoker Cigarettes 0.25 5 Smokeless Tobacco: [...]
--- OUTSIDE RECORDS SUMMARY | 2019-09-21 04:08 | XMS REPORT | Encounter Summary ---
Author Author [facility] Organization [facility] Address Unknown Phone Unavailable Care Team Providers Care Patriot Missile Air Defense Artillery Name Role Phone Jeniffer Tamayo MD PCP Reason for Visit * Reason Comments Medication Refill Encounter Details Care Team Description Date Type Department Jeniffer Tamayo MD [address] [place] [address] 09/10/2014 Refill [facility] Primar y Care [address] [address] Social History Date Tobacco Use [...]
--- OUTSIDE RECORDS SUMMARY | 2019-09-21 04:08 | XMS REPORT | Encounter Summary ---
Author Author [facility] Organization [facility] Address Unknown Phone Unavailable Care Team Providers Care Batch And Furnace Manager Name Role Phone Jeniffer Tamayo MD PCP Reason for Visit * Reason Comments Medication Refill Encounter Details Care Team Description Date Type Department Jeniffer Tamayo MD [address] [place] [address] Medication Refill 04/25/2014 Telephone [facility] Primar y Care [address] [phone] Social History Date Tobacco Use [...] * Telephone Encounter - Ross Centeno - 04/25/2014 1:01 PM SEMI AUTOMATIC SEWING MACHINE OPERATOR Pt called today wanting to know why her PA wasn't done yet. Called the PA form a nd asked why this wasn't done she said that per her insurance she does not have pharmacy insurance which means she would only have medical insurance for health care. Called pt back and informed her of what was going on she thought that was a lie and I told her the best idea would be call the number on the back of her c jose alfredo and ask them what is going on and what she has and what she doesn't;t have. AUTOMATIC SEWING MACHINE OPERATOR documented in this encounter Plan of Treatment Not on filedocumented as of this encounter Visit Diagnoses Not on filedocumented in this encounter
--- OUTSIDE RECORDS SUMMARY | 2019-09-21 04:08 | XMS REPORT | Encounter Summary ---
Author Author [facility] Organization [facility] Address Unknown Phone Unavailable Care Team Providers Care Pile Driver Operator Helper Name Role Phone Jeniffer Tamayo MD PCP Reason for Visit * Reason Comments Medication Refill Encounter Details Care Team Description Date Type Department Jeniffer Tamayo MD [address] [place] [address] 07/16/2014 Refill [facility] Primar y Care [address] [phone] Social History Date Tobacco Use [...]
--- OUTSIDE RECORDS SUMMARY | 2019-09-21 04:08 | XMS REPORT | Encounter Summary ---
Author Author [facility] Organization [facility] Address Unknown Phone Unavailable Care Team Providers Care Quality Intern Name Role Phone Jeniffer Tamayo MD PCP Reason for Visit * Reason Comments Other Encounter Details Care Team Description Date Type Department Jeniffer Tamayo MD [address] [place] [address] Other 04/28/2014 Telephone [facility] Primar y Care [address] [phone] Social History Date Tobacco Use [...] encounter Miscellaneous Notes * Telephone Encounter - Alejandra Duran - 04/28/2014 3:18 PM ELEVATOR SERVICE MECHANIC I called [facility] because we received a fax from the pts insurance stating that she does not have pharmacy coverage. Ellen at [facility] said that the pt does walker ve coverage through [employer]. I tried to call pt to let her know this inf ormation, her phone is off and she has no VM. ATOR SERVICE MECHANIC documented in this encounter Plan of Treatment Not on filedocumented as of this encounter Visit Diagnoses Not on filedocumented in this encounter
--- OUTSIDE RECORDS SUMMARY | 2019-09-21 04:08 | XMS REPORT | Encounter Summary ---
Author Author [facility] Organization [facility] Address Unknown Phone Unavailable Care Team Providers Care Sales Agent Trading Stamps Name Role Phone Jeniffer Tamayo MD PCP Reason for Visit * Reason Comments Employment Physical Pre-employment Physical/ Dr jannie Umaña Encounter Details Care Team Description Date Type Department Pricilla Glez, LOCKER ROOM SUPERVISOR [address] [phone] Physical exam, pre-employment (Primary D x) 06/05/2014 Office Visit [facility] [address] [place] [address] Social History Date Tobacco Use [...] Signs Reading Time Taken Comments Vital Sign 122/68 06/05/2014 11:18 AM INVESTOR Blood Pressure 78 06/05/2014 11:18 AM INVESTOR Pulse - - Temperature - - Respiratory Rate 99% 06/05/2014 11:18 AM INVESTOR Oxygen Saturation - - Inhaled Oxygen Concentration 81.6 kg (180 lb) 06/05/2014 11:18 AM INVESTOR Weight 154.9 cm (5' 1") 06/05/2014 11:18 AM INVESTOR Height 34.01 06/05/2014 11:18 AM INVESTOR Body Mass Index documented in this encounter Progress Notes * GlezPricilla aguilar ARNP - 06/05/2014 11:24 AM INVESTOR Please see scanned physical form. STOR documented in this encounter Plan of Treatment Not on filedocumented as of this encounter Visit Diagnoses Diagnosis Physical exam, pre-employment - Primary Health examination of defined subpopula tion documented in this encounter
--- OUTSIDE RECORDS SUMMARY | 2019-09-21 04:08 | XMS REPORT | Encounter Summary ---
Author Author [facility] Organization [facility] Address Unknown Phone Unavailable Care Team Providers Care Community Health Planning Director Name Role Phone Jeniffer Tamayo MD PCP Reason for Referral * Eval and Treat (Routine) Referred By Contact Referred To Contact Status Reason Specialty Diagnoses / Procedures Jeniffer Tamayo MD [address] [place] [address] Closed Neurosurgery Diagnoses Vision loss of right eye Headache Encounter Details Care Team Description Date Type Department Jeniffer Tamayo MD [address] [place] [address] Vision loss of right eye (Primary Dx); Headache 05/28/2014 Orders Only [facility] [address] [place] [address] Social History Date Tobacco Use [...] as of this encounter Plan of Treatment Order Schedule Name Type Priority Associated Diag noses Ordered: 05/28/2014 AMB REFERRAL TO Outpatient Routine Vision loss of right eye NEUROSURGERY Referral Headache documented as of this encounter Visit Diagnoses Diagnosis Vision loss of right eye - Primary Unqualified visual loss, one eye Headache documented in this encounter
--- OUTSIDE RECORDS SUMMARY | 2019-09-21 04:08 | XMS REPORT | Encounter Summary ---
Author Author [facility] Organization [facility] Address Unknown Phone Unavailable Care Team Providers Care Clinical Liaison Name Role Phone Jeniffer Tamaoy MD PCP Reason for Visit * Reason Comments Nausea Nasal Congestion Other took leftover cephalexin a week ago Encounter Details Care Team Description Date Type Department Elba Hermosillo, SHIFT SUPERVISOR RN [address] [place] [address] Sinusitis (Primary Dx) 04/04/2014 Office Visit [facility] [address] [place] [address] Social History Date Tobacco Use [...] Comments Vital Sign - - Blood Pressure - - Pulse 36.9 C (98.4 F) 04/04/2014 5:17 PM NARCOTICS DETECTIVE Temperature - - Respiratory Rate - - Oxygen Saturation - - Inhaled Oxygen Concentration 86.2 kg (190 lb) 04/04/2014 5:17 PM NARCOTICS DETECTIVE Weight 157.5 cm (5' 2") 04/04/2014 5:17 PM NARCOTICS DETECTIVE Height 34.75 04/04/2014 5:17 PM NARCOTICS DETECTIVE Body Mass Index documented in this encounter Progress Notes * Elba Figueroa ARNP - 04/04/2014 5:26 PM NARCOTICS DETECTIVE Subjective: History was provided by the patient. Opal Benavidez is a 23 y.o. female who presents for evaluation of sinusitis. Symptoms include sinus congestion, sinus pain, PND. Onset of symptoms was 2 week s ago, gradually worsening since that time. . She is drinking plenty of fluids .. Evaluation to date: none. Treatment to date: none Past Medical History Diagnosis Date ADD (attention deficit disorder with hyperactivity) Obesity (BMI 30.0-39.9) 2008 Depression cymbalta Current Outpatient Prescriptions Medication Sig Dispense Refill traZODone (DESYREL) 50 mg tablet TAKE 1 TABLET BY MOUTH DAILY AT BEDTIME 30 Tab 3 DULoxetine (CYMBALTA) 20 mg Capsule, Delayed Release(E.C.) Take 1 Cap by gene th 2 times daily. 60 Cap 1 amphetamine-dextroamphetamine (ADDERALL XR) 30 mg Extended Release 24 hour c apsule Take 1 Cap by mouth daily food and beverage analyst for 30 days. 30 Cap 0 amphetamine-dextroamphetamine SR 24 hour (ADDERALL XR) 30 mg Oral capsule Ta ke 1 Cap by mouth daily food and beverage analyst. 30 Cap 0 cetirizine (ZYRTEC) 10 mg Oral tablet Take 1 Tab by mouth daily. 30 Tab 1 omeprazole (PRILOSEC) 40 mg Oral CpDR Take 1 Cap by mouth daily. 30 Cap 1 No current facility-administered medications for this visit. 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 Objective: Temp(Src) 98.4 F (36.9 C) | Ht 5' 2" (1.575 m) | Wt 190 lb (86.183 kg) | BMI 34.74 kg/m2 General: alert, in no distress Head: maxillary sinus tenderness bilateral Eyes: conjunctivae/corneas clear. PERRL, EOM's intact. Ears: normal TM's and external ear canals AU Sinus tender: moderate Mouth: Lips, mucosa (moist), and tongue normal. Teeth and gums normal Neck: supple, symmetrical, trachea midline, no adenopathy and thyroid: not enlar ged, symmetric, no tenderness/mass/nodules. Lungs: clear to auscultation bilaterally, normal respiratory effort Abdomen: Soft, non-tender. Bowel sounds normal. No masses, no organomegaly. Assessment: sinusitis and viral upper respiratory illness Plan: Discussed dx and tx of URIs Discussed the dx and tx of sinusitis. Suggested symptomatic OTC remedies. RTC prn. OTICS DETECTIVE documented in this encounter Plan of Treatment Not on filedocumented as of this encounter Visit Diagnoses Diagnosis Sinusitis - Primary Unspecified sinusitis (chronic) documented in this encounter
--- OUTSIDE RECORDS SUMMARY | 2019-09-21 04:08 | XMS REPORT | Encounter Summary ---
Author Author [facility] Organization [facility] Address Unknown Phone Unavailable Care Team Providers Care [employer] Principal Name Role Phone Jeniffer Tamayo MD PCP Reason for Visit * Reason Comments Medication Refill Encounter Details Care Team Description Date Type Department Jeniffer Tamayo MD [address] [place] [address] 05/28/2014 Refill [facility] Prim[facility] Care [address] [address] Social History Date Tobacco Use [...]
--- OUTSIDE RECORDS SUMMARY | 2019-09-21 04:08 | XMS REPORT | Encounter Summary ---
Author Author [facility] Organization [facility] Address Unknown Phone Unavailable Care Team Providers Care Bpm Solution Architect Name Role Phone Jeniffer Tamayo MD PCP Encounter Details Care Team Description Date Type Department Jeniffer Tamayo MD [address] [place] [address] 03/27/2014 Abstract [facility] [place] [address] [place] [address] Social History Date Tobacco Use [...]
--- OUTSIDE RECORDS SUMMARY | 2019-09-21 04:08 | XMS REPORT | Encounter Summary ---
Author Author [facility] Organization [facility] Address Unknown Phone Unavailable Care Team Providers Care Agency Director Name Role Phone Jeniffer Tamayo MD PCP Reason for Referral * Outpatient Services (Routine) Referred By Contact Referred To Contact Status Reason Specialty Diagnoses / Procedures Jeniffer Tamayo MD [address] [place] [address] Closed Diagnoses Stress headaches Vision loss of right eye P rocedures MRI BRAIN W WO CONTRAST Reason for Visit * Reason Comments Headache Eye Problem right eye Encounter Details Care Team Description Date Type Department Jeniffer Tamayo MD [address] [place] [address] Stress headaches (Primary Dx); Vision loss of right eye 05/23/2014 Office Visit [facility] [address] [place] [address] Social History Date Tobacco Use [...] Reading Time Taken Comments Vital Sign 110/78 05/23/2014 4:15 PM COIN BOX COLLECTOR Blood Pressure - - Pulse 37 C (98.6 F) 05/23/2014 4:15 PM COIN BOX COLLECTOR Temperature - - Respiratory Rate - - Oxygen Saturation - - Inhaled Oxygen Concentration 85.3 kg (188 lb) 05/23/2014 4:15 PM COIN BOX COLLECTOR Weight 154.9 cm (5' 1") 05/23/2014 4:15 PM COIN BOX COLLECTOR Height 35.52 05/23/2014 4:15 PM COIN BOX COLLECTOR Body Mass Index documented in this encounter Progress Notes * Jeniffer Tamayo MD - 05/23/2014 4:27 PM COIN BOX COLLECTOR HISTORY OF PRESENT ILLNESS Opal Trimble, a 24 y.o. female. HPI Subjective Started 2 weeks ago. Headaches behind right eye. Eye is hard to look side to s edmundo with her eye. She has been on amoxicillin for the past week. 2 800 mg of i buprofen a day. No history of headaches. REVIEW OF SYSTEMS Review of Systems Constitutional: Negative for fever, chills, activity change, appetite change and unexpected weight change. Eyes: Negative for visual disturbance. Neurological: Positive for headaches. Negative for dizziness, tremors, seizures, syncope, facial asymmetry, speech difficulty, weakness, light-headedness and nu mbness. Objective PHYSICAL EXAM BP 110/78 | Temp(Src) 98.6 F (37 C) (Tympanic) | Ht 5' 1" (1.549 m) | Wt 188 lb (85.276 kg) | BMI 35.54 kg/m2 | LMP 05/02/2014 Physical Exam Constitutional: She is oriented to person, place, and time. She appears well-dev eloped and well-nourished. No distress. HENT: Head: Normocephalic and atraumatic. Cardiovascular: Normal rate and regular rhythm. No murmur heard. Pulmonary/Chest: Effort normal and breath sounds normal. Neurological: She is alert and oriented to person, place, and time. She displays normal reflexes. No cranial nerve deficit. She exhibits normal muscle tone. Production Supv rdination normal. Maybe a small amount of right eyelid droop Assessment ASSESSMENT and PLAN: ICD-9-CM ICD-10-CM 1. Stress headaches 307.81 F45.41 MRI BRAIN W WO CONTRAST 2. Vision loss of right eye 369.8 H54.61 MRI BRAIN W WO CONTRAST Orders Placed This Encounter MRI BRAIN W WO CONTRAST: Routine Exam; Infections, Headache, Multiple sclero sis, Tumor, Seizures Needs MRI to rule-out intracranial pathology. BOX COLLECTOR documented in this encounter Plan of Treatment Not on filedocumented as of this encounter Results * MRI BRAIN W WO CONTRAST (05/27/2014 3:19 PM COIN BOX COLLECTOR) Specimen Impressions Performed At IMPRESSION: The appearance of the brain is unremarkab le. INTERFACE SYSTEM There is asymmetric enlargement of the right lacrimal gland without focal mass suggested. A dedicated MR of the orbits might be helpful. No prop tosis is seen. The etiology is not known. This could r epresent some type of inflammatory process or pseudotumor. Neoplastic etiology is not definitively seen. Sarcoidosis can also involve the lacrimal glands.. No other retrobulbar masses are seen. Electronically Signed By: Deonte rinaldi MD, Signed On: 05/27/2014 4:40 PM Narrative Performed At RADIOLOGIC EXAM: MR brain without and with a 8.5 cc G adavist contrast INTERFACE SYSTEM INDICATIONS: Headache the time the righ t eye for several weeks COMPARISON: None FINDINGS: The ventricles and sulci are within normal limits. No mass effect shift or enhancing mass lesions are detected within the brain. No significant white matter disease is noted. No subdural collections are noted. The sinuses are clear. There is asymmetric enlargement of the right lacrimal gland compared to the left without focal mass visualized. This measures around 1.6 x 0.5 CM on the right compared to 0.94 CM by 0.5 CM on the left in its visualized aspect. Vertically the g land measures 1.35 CM. No significant proptosis is seen. Procedure Note Interface, [facility] Incoming Radiology Results - 05/27/2014 4:44 PM COIN BOX COLLECTOR RADIOLOGIC EXAM: MR brain without and with a 8.5 cc Gadavist contrast INDICATIONS: Headache the time the right eye for several weeks COMPARISON: None FINDINGS: The ventricles and sulci are within normal limits. No mass effect shift or enhancing mass lesions are detected within the brain. No significant white matter disease is noted. No subdural collections are noted. The sinuses are clear. There is asymmetric enlargement of the right lacrimal gland compared to the left without focal mass visualized. This measures around 1.6 x 0.5 CM on the right compared to 0.94 CM by 0.5 CM on the left in its visualized aspect. Vertically the gland measures 1.35 CM. No significant proptosis is seen. IMPRESSION IMPRESSION: The appearance of the brain is unremarkable. There is asymmetric enlargement of the right lacrimal gland without focal mass suggested. A dedicated MR of the orbits might be helpful. No proptosis is seen. The etiology is not known. This could represent some type of inflammatory process or pseudotumor. Neoplastic etiology is not definitively seen. Sarcoidosis can also involve the lacrimal glands.. No other retrobulbar masses are seen. Electronically Signed By: Deonte Cardona MD, Signed On: 05/27/2014 4:40 PM Performing Organization Address City/State/Zipcode Ph one Number INTERFACE SYSTEM INTERFACE SYSTEM Refer to clinic/hospital department documented in this encounter Visit Diagnoses Diagnosis Stress headaches - Primary Tension headache Vision loss of right eye Unqualified visual loss, one eye documented in this encounter
--- OUTSIDE RECORDS SUMMARY | 2019-09-21 04:08 | XMS REPORT | Encounter Summary ---
Author Author [facility] Organization [facility] Address Unknown Phone Unavailable Care Team Providers Care Flatbed Company Driver Name Role Phone Jeniffer Tamayo MD PCP Reason for Visit * Reason Comments Other starting new job would like adderall Encounter Details Care Team Description Date Type Department Jeniffer Tamayo MD [address] [place] [address] ADHD (attention deficit hyperactivity di sorder) (Primary Dx) 03/21/2014 Office Visit [facility] [place] [address] [place] [address] Social History Date Tobacco Use [...] Signs Reading Time Taken Comments Vital Sign 140/80 03/21/2014 9:29 AM MAJOR GIFTS DIRECTOR Blood Pressure - - Pulse - - Temperature - - Respiratory Rate - - Oxygen Saturation - - Inhaled Oxygen Concentration 86.2 kg (190 lb) 03/21/2014 9:29 AM MAJOR GIFTS DIRECTOR Weight 157.5 cm (5' 2") 03/21/2014 9:29 AM MAJOR GIFTS DIRECTOR Height 34.75 03/21/2014 9:29 AM MAJOR GIFTS DIRECTOR Body Mass Index documented in this encounter Progress Notes * Jeniffer Tamayo MD - 03/21/2014 9:42 AM MAJOR GIFTS DIRECTOR HISTORY OF PRESENT ILLNESS Opal Benavidez, a 23 y.o. female. HPI Diagnosed with ADHD in 2010 at [facility]. Is starting work again and would like to re start her Adderall for focus. REVIEW OF SYSTEMS Review of Systems Constitutional: Negative for fever, chills and unexpected weight change. PHYSICAL EXAM BP 140/80 | Ht 5' 2" (1.575 m) | Wt 190 lb (86.183 kg) | BMI 34.74 kg/m2 Physical Exam Constitutional: She is oriented to person, place, and time. She appears well-dev eloped and well-nourished. No distress. Neurological: She is alert and oriented to person, place, and time. Psychiatric: She has a normal mood and affect. Her behavior is normal. Judgment and thought content normal. ASSESSMENT and PLAN: ICD-9-CM ICD-10-CM 1. ADHD (attention deficit hyperactivity disorder) 314.01 F90.9 Orders Placed This Encounter amphetamine-dextroamphetamine (ADDERALL XR) 30 mg Extended Release 24 hour c apsule Reviewed note from [facility] [place]. Signed controlled med contract. R GIFTS DIRECTOR documented in this encounter Plan of Treatment Not on filedocumented as of this encounter Visit Diagnoses Diagnosis ADHD (attention deficit hyperactivity d isorder) - Primary Attention deficit disorder with hyperac tivity documented in this encounter
--- OUTSIDE RECORDS SUMMARY | 2019-09-21 04:08 | XMS REPORT | Encounter Summary ---
Author Author [facility] Organization [facility] Address Unknown Phone Unavailable Care Team Providers Care Tire Changer Name Role Phone Jeniffer Tamayo MD PCP Reason for Visit * Reason Comments Other Encounter Details Care Team Description Date Type Department Jeniffer Tamayo MD [address] [place] [address] Other 05/13/2014 Telephone [facility] Prim[facility] y Care [address] [address] Social History Date Tobacco Use [...] * Telephone Encounter - Alejandra Duran - 05/13/2014 9:18 AM GRIPPER ATTACHER Pt returned my call yesterday evening. She stated that she has had prescriptions filled at her regular pharmacy and not mail order and she did not understand why it would have to be mail order. I told her that I did not understand that either and she should call her insurance to figure out why. She said that she is tired of contacting them and getting nowhere. She also told me that they had given her a # for us to contact to authorize the prior auth. I told her the # that I had contacted and she had a different # of [phone], I told her that I would call today (Monday05/13/14) to try and figure out what I needed to do. I told her that we must have had a miscommunication with [employer] and on what we needed to do to prior auth her medication. This morning I called [facility] at [phone] and talked with Kaleigh. He is going to fax a form to [address] for me to fill out and fax back in order to au thorize her medication. Case # [id number]. I will fill the form out and fax it allison once I receive it. PER ATTACHER documented in this encounter Plan of Treatment Not on filedocumented as of this encounter Visit Diagnoses Not on filedocumented in this encounter
--- OUTSIDE RECORDS SUMMARY | 2019-09-21 04:08 | XMS REPORT | Encounter Summary ---
Author Author [facility] Organization [facility] Address Unknown Phone Unavailable Care Team Providers Care Watch Adjuster Name Role Phone Jeniffer Tamayo MD PCP Reason for Visit * Reason Comments Other Encounter Details Care Team Description Date Type Department Jeniffer Tamayo MD [address] [place] [address] Other 04/25/2014 Telephone [facility] [address] [address] Social History Date Tobacco Use [...]
--- OUTSIDE RECORDS SUMMARY | 2019-09-21 04:08 | XMS REPORT | Encounter Summary ---
Author Author [facility] Organization [facility] Address Unknown Phone Unavailable Care Team Providers Care Spool Fixer Name Role Phone Jeniffer Tamayo MD PCP Reason for Visit * Reason Comments Other Encounter Details Care Team Description Date Type Department Jeniffer Tamayo MD [address] [place] [address] Other 05/12/2014 Telephone [facility] [place] [address] [place] [address] Social History Date Tobacco Use [...] * Telephone Encounter - Alejandra Duran - 05/12/2014 4:43 PM SCALLOP DREDGER Pt's phone is off at this time. LM with father to have pt return our call. Tried to re authorize pts medication Adderall with [facility]. Medication was denied due to not having pharmacy coverage. I spoke with Ellen at [facility] on 04/28/14, he verified that pt only have coverage through [facility]. Pt presented to our office this afternoon stating that the reason the insurance was "confused" was due to her having her name in our system and her maiden name on her i nsurance card. I told the pt that we need proof that she has changed back to her maiden name before we can change it. She brought in her SS card and insurance c jose alfredo to change her name in our system. Zeenat in Medication refill spoke with pt rea nd told her she can either try [facility] or we will re authorize, she chos e for us to re authorize; which was denied. LOP DREDGER documented in this encounter Plan of Treatment Not on filedocumented as of this encounter Visit Diagnoses Not on filedocumented in this encounter
--- OUTSIDE RECORDS SUMMARY | 2019-09-21 04:08 | XMS REPORT | Encounter Summary ---
Author Author [facility] Organization [facility] Address Unknown Phone Unavailable Care Team Providers Care Refuse Driver Name Role Phone Jeniffer Tamayo MD PCP Reason for Visit * Reason Comments Medication Refill Encounter Details Care Team Description Date Type Department Jeniffer Tamayo MD [address] [place] [address] 05/15/2014 Refill [facility] Prim[facility] Care [address] [address] Social History Date Tobacco Use [...]
--- OUTSIDE RECORDS SUMMARY | 2019-09-21 04:08 | XMS REPORT | Encounter Summary ---
Author Author [facility] Organization [facility] Address Unknown Phone Unavailable Care Team Providers Care Qualitative Researcher Name Role Phone Jeniffer Tamayo MD PCP Reason for Visit * Reason Comments Medication Refill Encounter Details Care Team Description Date Type Department Jeniffer Tamayo MD [address] [place] [address] 09/08/[address] [facility] Prim[facility] y Care [address] [address] Social History Date Tobacco Use [...]
--- OUTSIDE RECORDS SUMMARY | 2019-09-21 04:08 | XMS REPORT | Encounter Summary ---
Author Author [facility] Organization [facility] Address Unknown Phone Unavailable Care Team Providers Care Claims Consultant Name Role Phone Jeniffer Tamayo MD PCP Reason for Referral * Outpatient Services (Routine) Referred By Contact Referred To Contact Status Reason Specialty Diagnoses / Procedures Jeniffer Tamayo MD [address] [place] [address] Closed Diagnoses Stress headaches Vision loss of right eye P rocedures MRI BRAIN W WO CONTRAST Reason for Visit * Outpatient Services (Routine) Referred By Contact Referred To Contact Status Reason Specialty Diagnoses / Procedures Jeniffer Tamayo MD [address] [place] [address] Closed Diagnoses Stress headaches Vision loss of right eye P rocedures MRI BRAIN W WO CONTRAST Encounter Details Care Team Description Date Type Department Jeniffer Tamayo MD [address] [place] [address] 05/27/2014 [facility] or[facility] Encounter [facility] [address] [place] [address] Social History Date Tobacco Use [...] Date End Date Medication Sig Dispensed Refills 05/15/2014 06/16/2014 amphetamine-dextroampheta Take 1 Cap by 30 Cap 0 mine (ADDERALL XR) 30 mg mouth daily Extended Release 24 hour early capsule morning. 01/17/2014 08/16/2014 DULoxetine (CYMBALTA) 20 Take 1 Cap by 60 Cap 1 mg Capsule, Delayed mouth 2 times Release(E.C.) daily. 07/04/2012 08/28/2014 cetirizine (ZYRTEC) 10 mg Take 1 Tab by 30 Tab 1 Oral tablet mouth daily. documented as of this encounter Plan of Treatment Not on filedocumented as of this encounter Procedures Comments Procedure Name Priority Date/Time Associated Diag nosis MRI BRAIN W WO CONTRAST Routine 05/27/2014 Stress headaches 3:19 PM DUBBING MACHINE OPERATOR Vision loss of right eye documented in this encounter Results * MRI BRAIN W WO CONTRAST (05/27/2014 3:19 PM DUBBING MACHINE OPERATOR) Specimen Impressions Performed At IMPRESSION: The appearance [...] significant proptosis is seen. Procedure Note Interface, [facility] Incoming Radiology Results - 05/27/2014 4:44 PM DUBBING MACHINE OPERATOR RADIOLOGIC EXAM: MR brain without and with [...] this encounter Visit Diagnoses Diagnosis Stress headaches Tension headache Vision loss of right eye Unqualified visual loss, one eye documented in this encounter Administered Medications Action Date Dose Rate Site Medication Order MAR Action 05/27/2014 3:07 PM DUBBING MACHINE OPERATOR 8.5 mL gadobutrol (GADAVIST) 10 mmol/10 mL (1 Given mmol/mL) injection 8.5 mL 8.5 mL, IV, INTRA-PROCEDURE ONCE, 1 dose, Starting 05/27/14 at 1438, Until 05/27/14 at 1507, Routine 05/27/2014 3:07 PM DUBBING MACHINE OPERATOR 10 mL sodium chloride 0.9 % flush injection 10 Given mL 10 mL, IV, SEE ADMIN INSTRUCTIONS, Starting 05/27/14 at 1438, Until 05/28/14 at 0229, Routine documented in this encounter
--- OUTSIDE RECORDS SUMMARY | 2019-09-21 04:08 | XMS REPORT | Encounter Summary ---
Author Author [facility] Organization [facility] Address Unknown Phone Unavailable Care Team Providers Care Manager Sales And Marketing Name Role Phone Jeniffer Tamayo MD PCP Reason for Visit * Reason Comments Medication Refill Encounter Details Care Team Description Date Type Department Jeniffer Tamayo MD [address] [place] [address] 03/28/2014 Refill [facility] Prim[facility] y Care [address] [address] Social History Date Tobacco Use [...]
--- OUTSIDE RECORDS SUMMARY | 2019-09-21 04:08 | XMS REPORT | Encounter Summary ---
Author Author [facility] Organization [facility] Address Unknown Phone Unavailable Care Team Providers Care Labor Economics Teacher Name Role Phone Jeniffer Tamayo MD PCP Reason for Visit * Reason Comments Eye Pain pt is supposed to have an M RI set up for this. Pt complains of eye pain and migraines following pain. Encounter Details Care Team Description Date Type Department Pricilla Glez, PUBLIC RELATIONS REPRESENTATIVE [address] [place] [address] [phone] Eye pain, right (Primary Dx) 05/25/2014 Office Visit [address] [address] Social History Date Tobacco Use [...] Signs Reading Time Taken Comments Vital Sign 114/86 05/25/2014 1:18 PM LADLE POURER Blood Pressure 91 05/25/2014 1:18 PM LADLE POURER Pulse 37.3 C (99.2 F) 05/25/2014 1:18 PM LADLE POURER Temperature - - Respiratory Rate 99% 05/25/2014 1:18 PM LADLE POURER Oxygen Saturation - - Inhaled Oxygen Concentration 85.3 kg (188 lb) 05/25/2014 1:18 PM LADLE POURER Weight 154.9 cm (5' 1") 05/25/2014 1:18 PM LADLE POURER Height 35.52 05/25/2014 1:18 PM LADLE POURER Body Mass Index documented in this encounter Progress Notes * GlezInesPricilla C, FOUNDER CEO & PRESIDENT - 05/25/2014 1:28 PM LADLE POURER HISTORY OF PRESENT ILLNESS Opal Trimble, a 24 y.o. female. HPI Comments: Patient reports she has intense pressure behind her right eye. St ates she is to have an MRI next week for further eval of this issue, but the pre ssure is "terrible". Asking for something to relieve the pressure. Takes 800mg ibuprofen twice a day, which she states dulls the pain. Eye Pain Associated symptoms include photophobia. Pertinent negatives include no fever. Subjective REVIEW OF SYSTEMS Review of Systems Constitutional: Negative. Negative for fever. HENT: Negative. Eyes: Positive for photophobia and pain. Respiratory: Negative. Cardiovascular: Negative. Gastrointestinal: Negative. Genitourinary: Negative. Objective PHYSICAL EXAM BP 114/86 | Pulse 91 | Temp(Src) 99.2 F (37.3 C) (Tympanic) | Ht 5' 1" (1.54 9 m) | Wt 188 lb (85.276 kg) | BMI 35.54 kg/m2 | SpO2 99% | LMP 05/02/2014 Physical Exam Constitutional: She is oriented to person, place, and time. She appears well-dev eloped and well-nourished. No distress. HENT: Head: Normocephalic and atraumatic. Eyes: Pupils are equal, round, and reactive to light. Right eye exhibits no disc harge. Left eye exhibits no discharge. No scleral icterus. Musculoskeletal: Normal range of motion. Neurological: She is alert and oriented to person, place, and time. Skin: Skin is warm and dry. She is not diaphoretic. Psychiatric: She has a normal mood and affect. Her behavior is normal. Assessment ASSESSMENT and PLAN: ICD-9-CM ICD-10-CM 1. Eye pain, right 379.91 H57.11 Instructed patient to take ibuprofen 800mg TID with food. Spoke with radiology ; no maintenance department technician available today, but pt instructed to call MRI scheduling tomorrow am to see if can have MRI tomorrow. Pt states understanding and agreement. Sc heduling phone number given to patient. E POURER documented in this encounter Plan of Treatment Not on filedocumented as of this encounter Visit Diagnoses Diagnosis Eye pain, right - Primary documented in this encounter
--- OUTSIDE RECORDS SUMMARY | 2019-09-21 04:08 | XMS REPORT | Encounter Summary ---
Author Author [facility] Organization [facility] Address Unknown Phone Unavailable Care Team Providers Care Vacuum Metalizing Supervisor Name Role Phone Jeniffer Tamayo MD PCP Reason for Visit * Reason Comments Medication Refill Encounter Details Care Team Description Date Type Department Jeniffer Tamayo MD [address] [place] [address] 07/11/2014 Refill [facility] Primar y Care [address] [address] Social History Date Tobacco Use [...]
--- OUTSIDE RECORDS SUMMARY | 2019-09-21 04:08 | XMS REPORT | Encounter Summary ---
Author Author [facility] Organization [facility] Address Unknown Phone Unavailable Care Team Providers Care Player Piano Technician Name Role Phone Jeniffer Tamayo MD PCP Reason for Visit * Reason Comments Needs Form Or Letter Prior authorization being f axed to [phone] Filled Out Encounter Details Care Team Description Date Type Department Jeniffer Tamayo MD [address] [place] [address] Needs Form Or Letter Filled Out (Prior a uthorization being faxed to [phone]) 05/14/2014 Telephone [facility] [address] [address] Social History Date Tobacco Use [...] * Telephone Encounter - Alejandra Duran - 05/14/2014 2:09 PM CLINICAL OB Received a fax from [employer] stating that the information provided on pts Adderall was incomplete and they requested additional forms to be filed out and faxed. Forms will be faxed back today. I attempted to contact pt to let her know where we are in the matter but her phone just continued to ring. Will try and contact pt after I receive approval on this matter. ICAL OB documented in this encounter Plan of Treatment Not on filedocumented as of this encounter Visit Diagnoses Not on filedocumented in this encounter
--- OUTSIDE RECORDS SUMMARY | 2019-09-21 04:08 | XMS REPORT | Encounter Summary ---
Author Author [facility] Organization [facility] Address Unknown Phone Unavailable Care Team Providers Care Rn Cardiology Name Role Phone Jeniffer Tamayo MD PCP Reason for Visit * Reason Comments Sore Throat ear pain left, x started 2 days ago Encounter Details Care Team Description Date Type Department Marlyn Groves APRN NO ADDRESS ON FILE Otitis media, acute, left (Primary Dx) 08/28/2014 Office Visit [facility] [address] [place] [phone] Social History Date Tobacco Use Types Packs/Day [...] Signs Reading Time Taken Comments Vital Sign 100/68 08/28/2014 5:55 PM CDT Blood Pressure 93 08/28/2014 5:55 PM CDT Pulse 35.6 C (96.1 F) 08/28/2014 5:55 PM CDT Temperature - - Respiratory Rate 99% 08/28/2014 5:55 PM CDT Oxygen Saturation - - Inhaled Oxygen Concentration 79.4 kg (175 lb) 08/28/2014 5:55 PM CDT Weight 156.2 cm (5' 1.5") 08/28/2014 5:55 PM CDT Height 32.53 08/28/2014 5:55 PM CDT Body Mass Index documented in this encounter Progress Notes * Marlyn Groves APRN - 08/28/2014 6:12 PM CDT SUBJECTIVE: Opal Trimble is a 24 y.o. female who complains of congestion, sore throat , dry cough and left ear pain for 2 days. She denies a history of cough, fevers and shortness of breath and denies a history of asthma. Patient admits to smoke cigarettes. This provider saw pt in ed for hip pain, is pending television host eval for join t pain. Sees a neurologist eye dr for tumor. OBJECTIVE: BP 100/68 | Pulse 93 | Temp(Src) 96.1 F (35.6 C) (Tympanic) | Ht 5' 1.5" (1.562 m) | Wt 175 lb (79.379 kg) | BMI 32.53 kg/m2 | SpO2 99% Appearance: alert, well appearing, and in no distress and well hydrated. Eye: normal, PERRLA ENT- right TM normal without fluid or infection, left TM red, dull, bulging, nec k has left anterior cervical nodes enlarged and pharynx erythematous without exu date. Chest - clear to auscultation, no wheezes, rales or rhonchi, symmetric air entry . ASSESSMENT: otitis media Chronic joint pain PLAN: See additional orders in EMR. Symptomatic therapy suggested: push fluids, rest, apply heat to sinuses prn, antibiotics indicated as prescribed, encouraged very strongly to quit smoking and return office visit prn if symptoms persist or wors en. Call or return to clinic prn if these symptoms worsen or fail to improve as anticipated. Primary and specialty continued care documented in this encounter Plan of Treatment Not on filedocumented as of this encounter Visit Diagnoses Diagnosis Otitis media, acute, left - Primary documented in this encounter
--- OUTSIDE RECORDS SUMMARY | 2019-09-21 04:08 | XMS REPORT | Encounter Summary ---
Author Author [facility] Organization [facility] Address Unknown Phone Unavailable Care Team Providers Care Team Physician Name Role Phone Jeniffer Tamayo MD PCP Reason for Visit * Reason Comments Hip Pain Pt has presented to ER with cc of hip pain, knee pain and she reports that she has emily on her finger and face. PT reports generalized joint pain. PT reports that her joint pain started 3 d ays ago. Pt states that most of her pain tonight is in her right hip an d right knee. Encounter Details Care Team Description Date Type Department Matthew Walker MD NO ADDRESS ON FILE Joint pain (Primary Dx) 08/15/2014 Emergency [facility] - Emergency Department [facility] 08/16/[address] [address] Social History Date Tobacco Use [...] Signs Reading Time Taken Comments Vital Sign 120/63 08/15/2014 11:51 PM CDT Blood Pressure - - Pulse 36.1 C (96.9 F) 08/15/2014 11:51 PM CDT Temperature - - Respiratory Rate 100% 08/15/2014 11:51 PM CDT Oxygen Saturation - - Inhaled Oxygen Concentration 79.4 kg (175 lb) 08/15/2014 11:51 PM CDT Weight 157.5 cm (5' 2") 08/15/2014 11:51 PM CDT Height 32.01 08/15/2014 11:51 PM CDT Body Mass Index documented in this encounter Discharge Instructions * Attachments The following attachments cannot be sent through Care Everywhere.* JOINT PAIN (ISRAELI) documented in this encounter Medications at Time of Discharge Start Date End Date Medication Sig Dispensed Refills 08/16/2014 09/08/2014 traMADol (ULTRAM) 50 mg Take 1 Tab 20 Tab 0 tablet (50 mg) by mouth every 6 hours as needed for Pain. 07/16/2014 09/10/2014 amphetamine-dextroampheta Take 1 Cap 30 Cap 0 mine (ADDERALL XR) 30 mg (30 mg) by Extended Release 24 hour mouth daily capsule lithographic proofer apprentice. 07/04/2012 08/28/2014 cetirizine (ZYRTEC) 10 mg Take 1 Tab by 30 Tab 1 Oral tablet mouth daily. documented as of this encounter ED Notes * Marlyn Groves APRN - 08/15/2014 11:51 PM CDT HISTORY OF PRESENT ILLNESS Opal Trimble, a 24 y.o. female presents to the ED with a Chief Complaint of Hip Pain Subjective HPI Comments: Chronic skin issues, is seing neurology for tumors? Having increa sing joint pain the last week, all joints. Has not had work up for this. No in jury no overuse History provided by: The patient Hip Pain Location: Hip Injury: no Associated symptoms: no fever REVIEW OF SYSTEMS Review of Systems Constitutional: Negative for fever and chills. HENT: Negative for sore throat. Cardiovascular: Negative for chest pain. Gastrointestinal: Negative for nausea, vomiting, abdominal pain and diarrhea. Genitourinary: Negative for difficulty urinating. Musculoskeletal: Positive for arthralgias. Negative for myalgias. Skin: Negative for rash. Neurological: Negative for dizziness. PAST MEDICAL HISTORY REVIEWED MEDICAL: Patient has a past medical history of ADD (attention deficit disorder with hype ractivity); Obesity (BMI 30.0-39.9) (2008); and Depression. She also has no past medical history of Obstructive sleep apnea (adult) (pediatric), Injury of back, Temporomandibular joint disorders, unspecified, Difficult intubation, Acute hero ous embolism and thrombosis of unspecified deep vessels of lower extremity, Inju ry of face and neck, Unspecified adverse effect of anesthesia, Chest pain, Malig nant hyperthermia, or Latex sensitivity. SURGICAL: Patient has [...] Abdominal pain; Hemo peritoneum; Corneal foreign body; and ADHD (attention deficit hyperactivity diso rder) on her problem list. ALLERGIES Sulfa (sulfonamide antibiotics) HOME MEDICATIONS Discharge Medication List as of 08/16/2014 12:09 AM START taking these medications Details traMADol (ULTRAM) 50 mg tablet Take 1 Tab (50 mg) by mouth every 6 hours as need ed for Pain., Disp-20 Tab, R-None cyclobenzaprine (FLEXERIL) 5 mg Tablet Take 1 Tab (5 mg) by mouth 3 times daily as needed for Spasm., Disp-20 Tab, R-0 CONTINUE these medications which have NOT CHANGED Details predniSONE (DELTASONE) 50 mg tablet Take 50 mg by mouth daily. amphetamine-dextroamphetamine (ADDERALL XR) 30 mg Extended Release 24 hour capsu le Take 1 Cap (30 mg) by mouth daily lithographic proofer apprentice., Disp-30 Cap, R-0 fluticasone (FLONASE) 50 mcg/spray [place], Suspension Administer 2 Sprays in each nostril daily., Disp-16 Gram, R-0 cetirizine (ZYRTEC) 10 mg Oral tablet Take 1 Tab by mouth daily., Disp-30 Tab, R -1 STOP taking these medications DULoxetine (CYMBALTA) 20 mg Capsule, Delayed Release(E.C.) Comments: Reason for Stopping: Objective PHYSICAL EXAM INITIAL VS BP: 120/63 mmHg (08/15/142350), Heart Rate (Monitored): 86 bpm (08/15/142350), Resp: (not recorded), Temp: 96.9 F (36.1 C) (08/15/142350), Temp src: Tymp anic (08/15/142350), SpO2: 100 % (08/15/142350), Height: 5' 2" (157.5 cm) (02/19), Weight: 79.379 kg (08/15/142350), BMI (Calculated): 32.07 (2350) No LMP recorded. Physical Exam Constitutional: She is oriented to person, place, and time. She appears well-dev eloped and well-nourished. HENT: Head: Normocephalic and atraumatic. Mouth/Throat: Oropharynx is clear and moist. Eyes: Pupils are equal, round, and reactive to light. Neck: Normal range of motion. Neck supple. Cardiovascular: Normal rate, regular rhythm, normal heart sounds and intact dist al pulses. No murmur heard. Pulmonary/Chest: No respiratory distress. Abdominal: Soft. Bowel sounds are normal. Musculoskeletal: Normal range of motion. She exhibits tenderness (hips, knees, s houlders). Lymphadenopathy: She has no cervical adenopathy. Neurological: She is alert and oriented to person, place, and time. Skin: Skin is warm and dry. Psychiatric: She has a normal mood and affect. Her behavior is normal. DIAGNOSTICS LAB: RADIOLOGY: No orders to display EKG: PROCEDURES Procedures MEDICAL DECISION MAKING AND PLAN OF CARE Pt already on prednisone 50mg, seeing neurologist, prob needs city controller Will draw inflammatory markers tonight. Pain mgmt tonight. Pt wanting meds she can work on, so rx ultram at this time, flexeril for hs Needs to follow up primary first of the week for lab results and pain mgmt and f urther workup REEVALUATION CASE DISCUSSED Medications Administered During the ED Stay from 08/15/2014 2346 to 08/18/2014 1 132 Date/Time Order Dose Route Action 08/16/2014 0011 ketorolac (TORADOL) injection 60 mg 60 mg IM Given 08/16/2014 0011 orphenadrine citrate (NORFLEX) 30 mg/mL injection 60 mg 60 mg IM Given Discharge Medication List as of 08/16/2014 12:09 AM START taking these medications Details traMADol (ULTRAM) 50 mg tablet Take 1 Tab (50 mg) by mouth every 6 hours as need ed for Pain., Disp-20 Tab, R-None cyclobenzaprine (FLEXERIL) 5 mg Tablet Take 1 Tab (5 mg) by mouth 3 times daily as needed for Spasm., Disp-20 Tab, R-0 CONTINUE these medications which have NOT CHANGED Details predniSONE (DELTASONE) 50 mg tablet Take 50 mg by mouth daily. amphetamine-dextroamphetamine (ADDERALL XR) 30 mg Extended Release 24 hour capsu le Take 1 Cap (30 mg) by mouth daily lithographic proofer apprentice., Disp-30 Cap, R-0 fluticasone (FLONASE) 50 mcg/spray [place], Suspension Administer 2 Sprays in each nostril daily., Disp-16 Gram, R-0 cetirizine (ZYRTEC) 10 mg Oral tablet Take 1 Tab by mouth daily., Disp-30 Tab, R -1 STOP taking these medications DULoxetine (CYMBALTA) 20 mg Capsule, Delayed Release(E.C.) Comments: Reason for Stopping: LAST VS BP: 120/63 mmHg (08/15/142350), Heart Rate (Monitored): 86 bpm (08/15/142350), Resp: (not recorded), Temp: 96.9 F (36.1 C) (08/15/142350), Temp src: Tymp anic (08/15/142350), SpO2: 100 % (08/15/142350) CLINICAL IMPRESSION Final diagnoses: [719.40] Joint pain (Primary) CODING Coding DISPOSITION, EDUCATION AND MEDICATION RECONCILIATION Medications reconciled. See after visit summary for patient education on discha rged patients. documented in this encounter Plan of Treatment Not on filedocumented as of this encounter Procedures Comments Procedure Name Priority Date/Time Associated Diag nosis SEDIMENTATION RATE Stat 08/16/2014 12:10 AM CDT RHEUMATOID FACTOR Stat 08/16/2014 12:10 AM CDT ONEYDA SCREEN W/REFLEX Stat 08/16/2014 12:10 AM CDT documented in this encounter Results * SEDIMENTATION RATE (08/16/2014 12:10 AM CDT) ESR 41 (H) 0 - 20 mm/Hr [facility] (SEDIMENTATION LABORATORY RATE) SERVICES - [place] Specimen Blood Performing Organization Address [facility] one Number [facility] CLIA# [id number] [place] [address] [address] - [address] * ONEYDA SCREEN W/REFLEX (08/16/2014 12:10 AM CDT) ONEYDA <1:40 <1:40 (Negative) [facility] Comment: LABORATORIES - No Titer performed, ONEYDA screen [facility] is negative. Test Performed by: [place] [address] District Superintendent: Arlyn De León, Ph.D. Specimen Blood specimen (specimen) Performing Organization Address [facility] one Number [facility] [phone] - [facility] * RHEUMATOID FACTOR (08/16/2014 12:10 AM CDT) RHEUMATOID <15 <15 IU/mL [facility] Comment: LABORATORIES - Test Performed by: [place] [address] District Superintendent: Delta Fournier II, M.D., Ph.D. Specimen Blood specimen (specimen) Performing Organization Address [facility] one Number [facility] [phone] - [facility] documented in this encounter Visit Diagnoses Diagnosis Joint pain - Primary Pain in joint, site unspecified documented in this encounter Administered Medications Action Date Dose Rate Site Medication Order MAR Action 08/16/2014 12:11 AM CDT [address] Quadrant, Right ketorolac (TORADOL) injection 60 mg Given 60 mg, IM, ONE TIME ONLY, 1 dose, 08/16/14 at 0015, Stat 08/16/2014 12:11 AM CDT 60 mg Thigh, R ight orphenadrine citrate (NORFLEX) 30 mg/mL Given injection 60 mg 60 mg, IM, ONE TIME ONLY, 1 dose, 08/16/14 at 0015, Routine documented in this encounter
--- OUTSIDE RECORDS SUMMARY | 2019-09-21 04:08 | XMS REPORT | Encounter Summary ---
Author Author [facility] Organization [facility] Address Unknown Phone Unavailable Care Team Providers Care Forestry Fire Aide Name Role Phone Jeniffer Tamayo MD PCP Reason for Visit * Reason Comments Medication Refill Encounter Details Care Team Description Date Type Department Jeniffer Tamayo MD [address] [place] [address] 06/16/2014 Refill [facility] Primar y Care [address] [address] Social History Date Tobacco Use [...]
--- OUTSIDE RECORDS SUMMARY | 2019-09-21 04:09 | XMS REPORT | Encounter Summary ---
Author Author [facility] Organization [facility] Address Unknown Phone Unavailable Care Team Providers Care Manager Social Services Name Role Phone Jeniffer Tamayo MD PCP Reason for Visit * Reason Comments Medication Refill Encounter Details Care Team Description Date Type Department Jeniffer Tamayo MD [address] [place] [address] 01/31/2014 Refill [facility] Primar y Care [address] [address] Social History Date Tobacco Use [...]
--- OUTSIDE RECORDS SUMMARY | 2019-09-21 04:09 | XMS REPORT | Encounter Summary ---
Author Author [facility] Organization [facility] Address Unknown Phone Unavailable Care Team Providers Care Wood Patternmaker Name Role Phone Jeniffer Tamayo MD PCP Reason for Visit * Reason Comments Depression x's several months due to d epression Insomnia req a sleeping pill. States she does smoke hua. to help her sleep Encounter Details Care Team Description Date Type Department Jeniffer Tamayo MD [address] [place] [address] Insomnia (Primary Dx); Drug overdose, multiple drugs, initial encounter 01/17/2014 Office Visit [facility] [address] [place] [address] Social History Date Tobacco Use [...] Signs Reading Time Taken Comments Vital Sign 112/78 01/17/2014 3:59 PM CDT Blood Pressure - - Pulse 36.2 C (97.2 F) 01/17/2014 3:59 PM CDT Temperature - - Respiratory Rate - - Oxygen Saturation - - Inhaled Oxygen Concentration 87.1 kg (192 lb) 01/17/2014 3:59 PM CDT Weight 157.5 cm (5' 2") 01/17/2014 3:59 PM CDT Height 35.12 01/17/2014 3:59 PM CDT Body Mass Index documented in this encounter Progress Notes * Jeniffer Tamayo MD - 01/17/2014 4:19 PM CDT HISTORY OF PRESENT ILLNESS Opal Benavidez, a 23 y.o. female. HPI Sleeping problem. Took 10 sleeping pills a night. Nyquil. Having trouble slee ping. Has tried melatonin in the past. Trazadone did not work after 2-3 days. Depression. Tired. Lost her job. Gained 40 pounds. Was on zoloft. REVIEW OF SYSTEMS Review of Systems Constitutional: Negative for fever and chills. Psychiatric/Behavioral: Positive for sleep disturbance, dysphoric mood and decre ased concentration. Negative for suicidal ideas, hallucinations and self-injury. The patient is nervous/anxious. The patient is not hyperactive. PHYSICAL EXAM BP 112/78 | Temp(Src) 97.2 F (36.2 C) | Ht 5' 2" (1.575 m) | Wt 192 lb (87.0 91 kg) | BMI 35.11 kg/m2 | LMP 01/03/2014 | ? No Physical Exam Constitutional: She is oriented to person, place, and time. She appears well-dev eloped and well-nourished. No distress. Neurological: She is alert and oriented to person, place, and time. Psychiatric: Her behavior is normal. Judgment and thought content normal. tearful ASSESSMENT and PLAN: ICD-9-CM ICD-10-CM 1. Insomnia 780.52 G47.00 2. Drug overdose, multiple drugs, initial encounter 977.9 T50.901A COMPREHENSIVE METABOLIC PANEL CBC WITH DIFFERENTIAL TSH T4 FREE Orders Placed This Encounter CMP CBC WITH DIFFERENTIAL TSH T4 FREE DULoxetine (CYMBALTA) 20 mg Capsule, Delayed Release(E.C.) traZODone (DESYREL) 50 mg tablet Talked to patient about stopping OTC sleeping pills. Will try trazadone with cy mbalta. Talked about these not really being approved for , but patien tis not currently trying to get . May need a sleep specialist. documented in this encounter Plan of Treatment Not on filedocumented as of this encounter Results * T4 FREE (01/17/2014 4:50 PM CDT) Pathologist [facility] T4 FREE 0.90 0.59 - 1.50 ng/dL [facility] [place] Specimen Blood Performing Organization Address City/[facility] Ph one Number [facility] CLIA# [id number] [place] [address] [address] LABORATORY SERVICES CLIA# [id number] [place] [address] [address] * TSH (01/17/2014 4:50 PM CDT) Pathologist [facility] TSH 2.17 0.34 - 4.82 uIU/mL [facility] [place] Specimen Blood Performing Organization Address City/[facility] one Number [facility] CLIA# [id number] [place] [address] - [facility] [place] [address] [place] [address] LABORATORY SERVICES CLIA# [id number] [place] [address] - [address] * CBC WITH DIFFERENTIAL (01/17/2014 4:50 PM CDT) [facility] WBC 5.4 3.0 - 10.4 K/uL [facility] - [place] RBC 4.12 3.77 - 4.97 M/uL [facility] - [place] HEMOGLOBIN 11.7 (L) 11.9 - 15.0 g/dL [facility]ORY [facility] [place] HEMATOCRIT 35.6 34.4 - 43.6 % [facility] [place] MCV 86.5 79.0 - 100.0 fL [facility] - [place] MCH 28.3 28.0 - 34.0 pg [facility] - [place] MCHC 32.7 31.0 - 35.0 g/dL [facility] - [place] RDW 14.6 11.5 - 15.1 % [facility] - [place] PLATELETS 254 148 - 408 K/uL [facility] [place] MPV 9.0 7.4 - 10.6 fL [facility] - [place] NEUTROPHILS 51 43 - 73 % [facility] - [place] LYMPHOCYTES 42 19 - 47 % [facility] - [place] MONOCYTES 5 3 - 9 % [facility] [place] EOSINOPHILS 2 0 - 6 % [facility] [place] BASOPHILS 0 0 - 1 % [facility] [place] NEUTROPHIL 2.72 1.30 - 7.60 K/uL [facility] - [place] LYMPHOCYTE 2.27 0.60 - 4.90 K/uL [facility] - [place] MONOCYTE 0.26 0.10 - 0.90 K/uL [facility] - [place] EOSINOPHIL 0.10 0.00 - 0.40 K/uL [facility] - [place] BASOPHILS 0.02 0.00 - 0.10 K/uL [facility] - [facility] Specimen Blood Performing Organization Address City/State/[facility] Ph one Number [facility] CLIA# [id number] [place] [address] - [place] [address] [place] [address] LABORATORY SERVICES CLIA# [id number] [place] [address] - [place] [address] [place] [address] * COMPREHENSIVE METABOLIC PANEL (01/17/2014 4:50 PM CDT) [facility] SODIUM 140 134 - 145 mmol/L [facility] - [place] POTASSIUM 4.2 3.5 - 5.1 mmol/L [facility] [place] CHLORIDE 106 98 - 107 mmol/L [facility] [place] CO2 29 22 - 31 mmol/L [facility] [place] CALCIUM 9.1 8.5 - 10.1 mg/dL [facility] [place] BUN 11 7 - 20 mg/dL [facility] [place] CREATININE 0.75 0.51 - 0.95 mg/dL [facility] [place] GLUCOSE 90 70 - 100 mg/dL [facility] - [facility] TOTAL PROTEIN 7.8 6.4 - 8.2 g/dL [facility] [place] ALBUMIN 3.7 3.4 - 5.0 g/dL [facility] [place] BILIRUBIN TOTAL 0.4 <=1.1 mg/dL [facility] - [place] ALKALINE 81 40 - 136 U/L [facility] PHOSPHATASE [facility] - [place] AST 17 10 - 40 U/L [facility] - [place] ALT 37 25 - 70 U/L [facility] - [place] GFR >60 >=60 mL/min/1.73 sq [facility] Comment: meter LABORATORY eGFR has not been validated SERVICES - [facility] for use in the elderly (> 70 [...] result. GFR, >60 >=60 mL/min/1.73 sq [facility] meter LABORATORY SERVICES - [place] ANION GAP 5 4 - 20 [facility] - [place] Specimen Blood Performing Organization Address City/State/[facility] Ph one Number [facility] CLIA# [id number] TESHA GORDON [address] - [place] [address] [place] [address] LABORATORY SERVICES CLIA# [id number] [place] [address] - [place] [address] [place] [address] documented in this encounter Visit Diagnoses Diagnosis Insomnia - Primary Insomnia, unspecified Drug overdose, multiple drugs, initial encounter documented in this encounter
--- OUTSIDE RECORDS SUMMARY | 2019-09-21 04:09 | XMS REPORT | Encounter Summary ---
Author Author [facility] Organization [facility] Address Unknown Phone Unavailable Care Team Providers Care Rail Splitter Name Role Phone Jeniffer Tamayo MD PCP Encounter Details Care Team Description Date Type Department Jeniffer Tamayo MD [address] [place] [address] [facility], Outpt Lab 01/17/2014 [facility] Outpatient Encounter Laboratory [address] [address] Social History Date Tobacco Use [...] Date End Date Medication Sig Dispensed Refills 01/17/2014 08/16/2014 DULoxetine (CYMBALTA) 20 Take 1 Cap by 60 Cap 1 mg Capsule, Delayed mouth 2 times Release(E.C.) daily. 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 07/04/2012 08/28/2014 cetirizine (ZYRTEC) 10 mg Take 1 Tab by 30 Tab 1 Oral tablet mouth daily. documented as of this encounter Plan of Treatment Not on filedocumented as of this encounter Procedures Comments Procedure Name Priority Date/Time Associated Diag nosis CBC WITH DIFFERENTIAL Routine 01/17/2014 Drug ove rdose, multiple 4:50 PM CDT drugs, initial encounter TSH Routine 01/17/2014 Drug overdose, multiple 4:50 PM CDT drugs, initial encounter T4 FREE Routine 01/17/2014 Drug overdose, multiple 4:50 PM CDT drugs, initial encounter COMPREHENSIVE METABOLIC Routine 01/17/2014 Drug o verdose, multiple PANEL 4:50 PM CDT drugs, initial enco unter documented in this encounter Results * T4 FREE (01/17/2014 4:50 PM CDT) T4 FREE 0.90 0.59 - 1.50 ng/dL [facility] LABORATORY [facility] Specimen Blood Performing Organization Address [facility] Ph one Number [facility] SERVICES CLIA# [id number] [place], [place] [address] - [address] LABORATORY SERVICES CLIA# [id number] [place] [address] * TSH (01/17/2014 4:50 PM CDT) TSH 2.17 0.34 - 4.82 uIU/mL [facility]ORY [facility] Specimen Blood Performing Organization Address [facility] Ph one Number [facility] SERVICES CLIA# [id number] [place], [place] [address] - [address] LABORATORY SERVICES CLIA# [id number] [place] [address] * CBC WITH DIFFERENTIAL (01/17/2014 4:50 PM CDT) WBC 5.4 3.0 - 10.4 K/uL [facility] RBC 4.12 3.77 - 4.97 M/uL [facility]ORY [facility] HEMOGLOBIN 11.7 (L) 11.9 - 15.0 g/dL [facility] LABORATORY [facility] [place] HEMATOCRIT 35.6 34.4 - 43.6 % [facility] [place] MCV 86.5 79.0 - 100.0 fL [facility] - [place] MCH 28.3 28.0 - 34.0 pg [facility] - [place] MCHC 32.7 31.0 - 35.0 g/dL [facility] - [place] RDW 14.6 11.5 - 15.1 % [facility] - [place] PLATELETS 254 148 - 408 K/uL [facility] - [place] MPV 9.0 7.4 - 10.6 fL [facility] - [place] NEUTROPHILS 51 43 - 73 % [facility] - [facility] [place] LYMPHOCYTES 42 19 - 47 % [facility] [...] 0.40 K/uL [facility] - [facility] [place] BASOPHILS 0.02 0.00 - 0.10 K/uL [facility] [place] Specimen Blood Performing Organization Address City/State/Zipcode Ph one Number [facility] SERVICES CLIA# [id number] [place], [place] [address] - [address] LABORATORY SERVICES CLIA# [id number] [place] [address] - [address] * COMPREHENSIVE METABOLIC PANEL (01/17/2014 4:50 PM CDT) SODIUM 140 134 - 145 mmol/L [facility] - [place] POTASSIUM 4.2 3.5 - 5.1 mmol/L [facility] [place] CHLORIDE 106 98 - 107 mmol/L [facility] [place] CO2 29 22 - 31 mmol/L [facility] [place] CALCIUM 9.1 8.5 - 10.1 mg/dL [facility] [place] BUN 11 7 - 20 mg/dL [facility] - [place] CREATININE 0.75 0.51 - 0.95 mg/dL [facility] - [place] GLUCOSE 90 70 - 100 mg/dL [facility] - [place] TOTAL PROTEIN 7.8 6.4 - 8.2 g/dL [facility] - [place] ALBUMIN 3.7 3.4 - 5.0 g/dL [facility] - [place] BILIRUBIN TOTAL 0.4 <=1.1 mg/dL [facility] - [place] ALKALINE 81 40 - 136 U/L [facility] PHOSPHATASE LAB[facility]AT[facility] SERVICES - [place] AST 17 10 - 40 U/L [facility] - [facility] [place] ALT 37 25 - 70 U/L [facility] - [place] GFR >60 >=60 mL/min/1.73 sq [facility] Comment: meter LABORATORY eGFR has not been validated SERVICES - [facility] for use in the elderly (> 70 [...] OLIVER ANION GAP 5 4 - 20 [facility] LABORATORY SERVICES - [place] Specimen Blood Performing Organization Address City/State/[facility] Ph one Number [facility] SERVICES CLIA# [id number] [place] [address] - [place] [address] [place] [address] LABORATORY SERVICES CLIA# [id number] [place] [address] - [address] documented in this encounter Visit Diagnoses Diagnosis Drug overdose, multiple drugs, initial encounter documented in this encounter
--- OUTSIDE RECORDS SUMMARY | 2019-09-21 04:09 | XMS REPORT | Encounter Summary ---
Author Author [facility] Organization [facility] Address Unknown Phone Unavailable Care Team Providers Care Electrical Test Engineer Name Role Phone Self, Lucius Heart MD PCP Reason for Visit * Reason Comments Abdominal Pain lower just above pubic bone onset suddenly just prior to contact with EMS - does report she has an ectopic pregnanc y and has seen Dr. 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 * Auth/Cert Referred By Contact Referred To Contact Status Reason Specialty Diagnoses / Procedures [facility] Med Surg [address] [place] [address] Inpatient Diagnoses Ectopic Pelvic pain in female Abdominal pain Hemoperitoneum P rocedures LAPAROTOMY EXPLORATORY Encounter Details Care Team Description Date Type Department Evangelista Marcos DO [address] [place] [address] LAPAROTOMY EXPLORATORY 11/03/2013 Surgery [facility] Operating Room [address] [place] [address] Social History Date Tobacco Use Types Packs/Day Years Used Current Every Day Smoker Cigarettes 1 5 Smokeless Tobacco: Never Used Drinks/Week oz/Week Comments Alcohol Use drinks on weekends No Sex Assigned at Date Recorded Not on file Industry Job Start Date Occupation Not on file Not on file Not on file Travel End Travel History Travel Start No recent travel history available. documented as of this encounter Last Filed Vital Signs Reading Time Taken Comments Vital Sign 97/54 11/04/2013 7:30 AM CDT Blood Pressure 108 11/04/2013 7:30 AM CDT Pulse 36.8 C (98.2 F) 11/04/2013 7:30 AM CDT Temperature 10 11/04/2013 7:30 AM CDT Respiratory Rate 97% 11/04/2013 7:30 AM CDT Oxygen Saturation - - Inhaled Oxygen Concentration 77.1 kg (170 lb) 11/04/2013 5:00 AM CDT Weight 157.5 cm (5' 2") 11/04/2013 5:00 AM CDT Height 31.09 11/04/2013 5:00 AM CDT Body Mass Index documented in this encounter Discharge Summaries * Evangelista Marcos DO - 11/04/2013 12:56 PM CDT Physician Discharge Summary Patient: Opal Benavidez / 23 y.o. / female : 1990 Admit date: 11/03/2013 Indication for Admission: Emergent surgery, Exploratory Laparotomy with Left Meng pingectomy. Admitting Diagnoses: Ectopic [633.90] Pelvic pain in female [625.9] Abdominal pain [789.00] Hemoperitoneum [568.81] Attending Physician: Evangelista Marcos DO Consults: none. Emergency Department Diagnoses: ICD-9-CM ICD-10-CM 1. Ectopic , tubal 633.10 O00.1 Problem List: Patient Active Problem List Diagnosis Code ADD (attention deficit disorder) 314.00 Anovulation 628.0 Encounter to discuss test results V65.49 History of recurrent miscarriages, not currently 629.81 Postoperative follow-up V67.00 Vaginal odor 625.9 Obesity 278.00 Multiple food allergies 995.7 Well woman exam with routine gynecological exam V72.31 Amenorrhea 626.0 Pelvic pain in female 625.9 Positive test V72.42 Ectopic 633.90 Ectopic , tubal 633.10 Abdominal pain 789.00 Hemoperitoneum 568.81 Treatments: IV hydration, antibiotics: cefoxitin, analgesia: Fentanyl and surger y: Exploratory Laparotomy with Left Salpingectomy. Significant Diagnostic Studies: labs: CBC and radiology: CT scan: of Pelvis. Hospital Course: Ms. Benavidez presented to the ED with severe pelvic pain, vaginal bleeding and a known Ectopic of the Left Fallopian Tube. She was init ially treated with Methotrexate, but her pain got worse and started having vagin al bleeding. She was taken immediately to the Operating Room where an Explorato ry Laparotomy was performed along with removal of her left fallopian tube. Post operative Day #1 found Ms. Benavidez feeling much better, pain under control, voidin g, moving her bowels, tolerating a Regular Diet and ambulating. Her vital signs and temperature remained stable. We are going to discharge her to home with in struction, prescriptions, and a follow up appointment. Admission Condition: mildly deteriorating. Discharge date: 11/04/2013 Discharging Physician: Evangelista Marcos, Discharge Exam: General appearance: active, alert, in no distress Heart: normal rate, regular rhythm, normal S1, S2, no murmurs, rubs, clicks or g allops Abdomen: Soft, non-tender. Bowel sounds normal. No masses, no organomegaly. Extremities: extremities normal, atraumatic, no cyanosis or edema, intact distal pulses, moves all extremities equally, no edema, redness or tenderness in the c badillo or thighs, normal strength, normal tone Neurologic: Alert and oriented X 3, normal strength and tone. Normal symmetric r eflexes. Normal coordination and gait. Discharge Condition: stable. Discharge Diagnoses: Ectopic [633.90] Pelvic pain in female [625.9] Abdominal pain [789.00] Hemoperitoneum [568.81] Disposition: home. MEDICATIONS Prior to admission: Prescriptions prior to admission Medication Sig Dispense Refill folic acid (FOLVITE) 1 mg tablet Take 3 Tabs by mouth daily. 60 Tab 8 [DISCONTINUED] progesterone micronized (PROMETRIUM) 200 mg Capsule Take 1 Ca p by mouth daily. 30 Cap 2 amphetamine-dextroamphetamine SR 24 hour (ADDERALL XR) 30 mg Oral capsule Ta ke 1 Cap by mouth daily book or script editor. 30 Cap 0 cetirizine (ZYRTEC) 10 mg Oral tablet Take 1 Tab by mouth daily. 30 Tab 1 omeprazole (PRILOSEC) 40 mg Oral CpDR Take 1 Cap by mouth daily. 30 Cap 1 fluticasone (FLONASE) 50 mcg/spray Both Nostril SpSn Administer 2 Sprays in each nostril daily. 1 Bottle 1 loratadine (CLARITIN) 10 mg Oral tablet Take 1 Tab by mouth daily. 30 Tab 3 Discharge medications and new prescriptions: Current Discharge Medication List START taking these medications docusate sodium 100 mg capsule Commonly known as: COLACE Take 1 Cap by mouth 2 times daily. Provider: Evangelista Marcos Quantity: 30 Cap Refills: 0 ibuprofen 800 mg tablet Commonly known as: MOTRIN Take 1 Tab by mouth every 8 hours. Provider: Evangelista Marcos Quantity: 30 Tab Refills: 0 oxyCODONE-acetaminophen 5-325 mg tablet Commonly known as: PERCOCET Take 1 Tab by mouth every 4 hours as needed for Pain, Moderate. Start taking on: 11/05/2013 Provider: Evangelista Marcos Quantity: 30 Tab Refills: 0 CONTINUE taking these medications amphetamine-dextroamphetamine 30 mg Extended Release 24 hour capsule Commonly known as: ADDERALL XR Take 1 Cap by mouth daily book or script editor. Provider: Lucius Murry Quantity: 30 Cap Refills: 0 cetirizine 10 mg tablet Commonly known as: ZyrTEC Take 1 Tab by mouth daily. Provider: Lucius Murry Quantity: 30 Tab Refills: 1 fluticasone 50 mcg/spray Spsn Commonly known as: FLONASE Administer 2 Sprays in each nostril daily. Provider: Katy Catalan Quantity: 1 Bottle Refills: 1 folic acid 1 mg tablet Commonly known as: FOLVITE Take 3 Tabs by mouth daily. Provider: Evangelista Marcos Quantity: 60 Tab Refills: 8 loratadine 10 mg tablet Commonly known as: CLARITIN Take 1 Tab by mouth daily. Provider: Katy Catalan Quantity: 30 Tab Refills: 3 omeprazole 40 mg Cpdr Commonly known as: PRILOSEC Take 1 Cap by mouth daily. Provider: Lucius Murry Quantity: 30 Cap Refills: 1 DISCONTINUED medications progesterone micronized 200 mg Cap Commonly known as: PROMETRIUM Where to Get Your Medications Information on where to get these meds is not yet available. Ask your nurse or doctor. - docusate sodium 100 mg capsule - ibuprofen 800 mg tablet - oxyCODONE-acetaminophen 5-325 mg tablet Patient instructions: Activity: Pelvic rest, no heavy lifting, no strenuous activities. Diet: Regular Diet. Wound Care: Keep wound clean and dry. Follow-up with Dr. Marcos in one week. Signed: Evangelista Marcos DO 11/04/2013, 12:57 PM documented in this encounter Discharge Instructions * Instructions* Yudith Cisneros RN - 11/04/2013 DISCHARGE DESTINATION: Home PRESCRIPTIONS Prescriptions given? Yes and Printed (Colace, Motrin, Percocet) SIGNS AND SYMPTOMS TO REPORT Contact your health care provider if you experience any of the following symptom s: increase in pain, increase in redness, swelling, or warmth of incision site or persistent bleeding or drainage. ACTIVITY Your activity level is: increase activity as tolerated and no smoking. If you smoke you are advised to quit. Ask your health care provider for advice if you need assistance to stop smoking. Avoid second-hand smoke exposure and do not le t people smoke in your home. FOLLOW UP: Follow up with Dr. Marcos in one week on Monday, November 11, 2013 at 2:00 PM You may return to work/school call if not improving. Follow-up care is a daniel part of your treatment and safety. Be sure to make/go to all appointments. DIET Your diet is: regular WOUND CARE For your wound/incision: keep wound clean and dry. * Attachments The following attachments cannot be sent through Care Everywhere.* : ECTOPIC (GREENLANDIC) documented in this encounter Medications at Time of Discharge Start Date End Date Medication Sig Dispensed Refills 10/08/2012 05/15/2014 amphetamine-dextroampheta Take 1 Cap by 30 Cap 0 mine SR 24 hour (ADDERALL mouth daily XR) 30 mg Oral capsule book or script editor. 07/04/2012 08/28/2014 cetirizine (ZYRTEC) 10 mg Take 1 Tab by 30 Tab 1 Oral tablet mouth daily. documented as of this encounter Progress Notes * Jazmin Mandujano RN - 11/04/2013 3:15 PM CDT Pt went home with significant other. Prescriptions in hand. * Jazmin Mandujano RN - 11/03/2013 6:20 PM CDT Pt resting quietly in bed. resp even and not labored. Friend at bedside. * Jazmin Mandujano RN - 11/03/2013 5:27 PM CDT I V valium given as ordered 5 mg. Pt tolerated drug well, pulse ox at 98%-99% du ring infusion. IV of lr disconnected flushed with saline, valium given and again s flushed with 10cc of fabrizio saline. Iv of lactated ringers and fentanyl reconne cted. * Jazmin Mandujano RN - 11/03/2013 4:45 PM CDT Pt received from [facility] to rm 117, is very groggy but is awake. Stating that she is having pain, informed her that she would have some pain. Iv of LR at 125cc/hr i n rac. Heath draining clear yellow urine. * Yuni Frias RN - 11/03/2013 1:11 PM CDT Surgery crew paged for "ruptured ectopic - ERNIE, not STAT." per requtrace t of ER nurse via Dr Marcos. documented in this encounter H&P Notes * Evangelista Marcos DO - 11/03/2013 1:26 PM CDT Subjective: Patient is a 23 y.o. female presents with severe pelvic pain, greater on the left lower side. Onset of symptoms was gradual with gradually worsening c ourse since that time. The pain is located left lower quadrant. Patient describe s the pain as severe and continuous and rated as severe. Pain has been associat ed with movement. Patient denies any relief. Symptoms are aggravated by movement . Symptoms improve with with nothing. Patient Active Problem List Diagnosis Date Noted Ectopic , tubal 11/03/2013 Abdominal pain 11/03/2013 Hemoperitoneum 11/03/2013 Pelvic pain in female 10/21/2013 Positive test 10/21/2013 Ectopic 10/21/2013 Amenorrhea 10/18/2013 Well woman exam with routine gynecological exam 09/03/2012 Obesity 07/05/2012 Multiple food allergies 07/05/2012 Vaginal odor 05/29/2012 Postoperative follow-up 05/22/2012 History of recurrent miscarriages, not currently 05/10/2012 Encounter to discuss test results 03/02/2012 Anovulation 11/29/2010 ADD (attention deficit disorder) 08/06/2010 Past Medical History Diagnosis Date ADD (attention deficit disorder with hyperactivity) Obesity (BMI 30.0-39.9) 2009 Depression cymbalta Past Surgical History Procedure Laterality Date Hx section 12/2005 Arrest of dilation @ 3 cm. Delivered in [place], [place] (rqt) Hx gastric bypass 01/11/12 gastric sleeve Pr hysteroscopy,dx,sep proc 05/15/2012 HYSTEROSCOPY performed by Evangelista Marcos DO at [facility] [place] Pr dilation/curettage,diagnostic 05/15/2012 DILATATION AND CURETTAGE SUCTION performed by Evangelista Marcos DO at [facility] [place] OR (Not in a hospital admission) Allergies Allergen Reactions Sulfa (Sulfonamide Antibiotics) Hives History Substance Use Topics Smoking status: Current Every Day Smoker -- 1.00 packs/day for 5 years Types: Cigarettes Smokeless tobacco: Never Used Alcohol Use: No Comment: drinks on weekends Family History Problem Relation Age of Onset Cancer Paternal Grandfather Review of Systems Cardiovascular: negative. Endocrine: negative. Gastrointestinal: constipation issues. Genitourinary:negative. Neurological: negative. Respiratory: negative. Objective: Patient Vitals for the past 8 hrs: BP Resp SpO2 11/03/13 1300 100/44 mmHg - 100 % 11/03/13 1245 101/53 mmHg - 100 % 11/03/13 1230 101/42 mmHg - 100 % 11/03/13 1200 96/43 mmHg - 100 % 11/03/13 1135 108/54 mmHg 16 100 % 11/03/13 1130 115/60 mmHg 16 98 % No intake or output data in the 24 hours ending 06/29/14 1326 BP 100/44 | Resp 16 | SpO2 100% | LMP 09/13/2013 General appearance: active, alert, in no distress Lungs: clear to auscultation bilaterally, normal respiratory effort Heart: normal rate, regular rhythm, normal S1, S2, no murmurs, rubs, clicks or g allops Abdomen: Soft, severe tender. Bowel sounds normal. No masses, no organomegaly, rebound and guarding--significant Extremities: extremities normal, atraumatic, no cyanosis or edema, intact distal pulses, moves all extremities equally, no edema, redness or tenderness in the c badillo or thighs, normal strength, normal tone Neurologic: Alert and oriented X 3, normal strength and tone. Normal symmetric r eflexes. Normal coordination and gait ECG: No prior ECG. Data Review: CBC: Lab Results Component Value Date/Time WBC 13.2* 11/03/2013 11:43 AM RBC 3.88 11/03/2013 11:43 AM HGB 12.4 11/03/2013 11:43 AM HCT 36.3 11/03/2013 11:43 AM PLT 322 11/03/2013 11:43 AM BMP: Lab Results Component Value Date/Time GLUCOSE 116* 11/03/2013 11:43 AM NA 137 11/03/2013 11:43 AM K 3.8 11/03/2013 11:43 AM CL 109* 11/03/2013 11:43 AM CO2 25 11/03/2013 11:43 AM BUN 7 11/03/2013 11:43 AM CREAT 0.71 11/03/2013 11:43 AM CA 8.5 11/03/2013 11:43 AM Assessment: Principal Problem: Ectopic , tubal Active Problems: Pelvic pain in female Abdominal pain Hemoperitoneum Plan: We are going to take Ms. Benavidez to surgery immediately for an Exploratory Laparot roxane with Left Salpingectomy possible Left Salpingo-oophorectomy. The procedure and its associated risks were discussed. All questions were answered. Informed consent was obtained. documented in this encounter OR Notes * OR Anesthesia - Loc Valenzuela CRNA - 11/04/2013 10:12 AM CDT Post Anesthesia Evaluation Sign Out Vitals: BP 97/54 | Pulse 108 | Temp(Src) 98.2 F (36.8 C) (Tympanic) | Resp 14 | Ht 5' 2" (1.575 m) | Wt 170 lb (77.111 kg) | BMI 31.09 kg/m2 | SpO2 97% | L 09/13/2013 Pain Rating: Pain Rating: Rest: 4 (11/04/13 0841) Pain Rating: Activity: 3 (11/03/13 2100) Nausea/Vomiting: no nausea and no vomiting Post-Op hydration: well hydrated Respiratory function: no respiratory symptoms Airway patency: normal Cardiovascular function: Normal - Regular rate and rhythm Mental status, LOC: 0=alert; keenly responsive Michael Lenz CRNA 11/04/2013; 10:12 AM * Maite-OP - Deana Macario RN - 11/03/2013 4:18 PM CDT Patient resting intermittently, 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 Dressing remains clean and dry. No s/sx of distress noted, vitals taken and charted. See for details. * OR Anesthesia - Loc Valenzuela CRNA - 11/03/2013 3:54 PM CDT Patient was taken to PACU. Responding verbally No nausea at this time vital si gns stable * Operative Report - Evangelista Marcos DO - 11/03/2013 3:39 PM CDT Exploratory Laparotomy with Left Salpingectomy Pre-operative Diagnosis: Ectopic 2. Pelvic Pain 3. Abdominal Pain 4 . Hemoperitoneum Post-operative Diagnosis: Same as above Surgeon: Evangelista Marcos DO Assistants: None Anesthesia: General endotracheal anesthesia ASA Class: 2 Procedure Details The risks of the procedure were explained to the patient to include bleeding, in fection, injury to adjacent organs, such as the bowel, bladder, ureters, uterus, tubes and ovaries and any nerves or vessels coursing through the pelvic cavity , reaction to anesthesia and possible . After this was explained to the jayshree simeon, informed consent was obtained. The patient was taken to the operating prince m with IV fluids running. Once in the operating room, the pt was placed in the supine position. A Heath catheter was inserted and the pt was prepped and drape d in normal sterile fashion. A mini-pfannestiel skin incision was made over the previous skin incision. The incision was carried down to the underlying layer of the fascia. The fascia was nicked in the midline and extended laterally with Beck scissors. The superior aspect of the fascial incision was then grasped wi th Osvaldo clamps, elevated and the rectus muscle dissected off sharply. Attenti on was then turned to the inferior aspect of the fascial incision which in a sim ilar fashion was grasped with Osvaldo clamps, elevated and the rectus muscle diss ected off sharply. The rectus muscles were in the midline. The perit oneum was identified, grasped with pickups, entered sharply with the Metzenbaum scissors and extended inferiorly and superiorly with good visualization of the b ladder. It was noted that the patient had a large amount of blood in the pelvic and abdominal cavities--we suctioned as much as possible (approximiately 500 ml ). At this point, an Belfour retractor was placed in the incision. The bowel w as packed away with moist laparotomy sponges. It was noted that the left fallo pian tube was bleeding continuously and what was thought to be products of gricel ption was extruding from an open area (the tissue was grasped with a Roach and sent to pathology. The tube was doubly clamped with Evangelina clamps and excis ed. A suture ligature of 0-Vicryl was placed with excellent hemostasis. Hemos tasis noted throughout the patient's pelvic cavity. Copious amounts of irrigati on was undertaken at that time. All instrumentations were removed from the miguel ent's pelvic cavity. Sponge, lap, instrument and needle count was done at that time. The parietal peritoneum was reapproximated with 3-0 Vicryl in a running f ashion. The fascia was closed with 0 Vicryl in a running fashion. The subcutan eous tissues were reapproximated with 3-0 plain gut. The skin was closed with a 4-0 Vicryl in a running subcuticular manner with excellent buddhism of the n ormal skin planes and excellent hemostasis. A sterile bandage was applied. Spo nge, lap, needle and instrument counts were correct times 3. The patient was t aken to the recovery room in good and stable condition where follow up orders an d pain management were instituted at that time. Findings: The anterior cul-de-sac and round ligaments unremarkable, other than moderate to heavy amounts of blood and clot noted The uterus urnemarkable The adnexa left fallopian tube traumatized with what is believed to be products of conception extruding from it. Right fallopian tube and ovary unremarkable. Left ovary unremarkable. Posterior cul-de-sac blood Estimated Blood Loss: 325 ml Total IV Fluids: 1150 ml Urinary Output: 75 ml Specimens: Left fallopian tube and products of conception Complications: None; patient tolerated the procedure well. Disposition: PACU - hemodynamically stable * Maite-OP - Deana Macario RN - 11/03/2013 3:32 PM CDT Arrived to PACU per bed, skin, pink, warm and dry. Resp. Unlabored at 18/min. O2 per face mask at 10 liters with O2 sat. 100%. IV of LR infusing to RAC without diff. Dressing to lower mid abd. Is clean, dry and intact. Heath cath. Draining clear yellow urine. ALP's on bilaterally. Arrived with oral airway in place, rem stanley by CABLE PLACER after arriving to PACU. Patient moving all ext. Voluntarily. ALPs o n bilaterally. Vitals signs taken and charted. Will continue to monitor patient in PACU at this time. * OR Anesthesia - Loc Valenzuela CRNA - 11/03/2013 2:05 PM CDT Patient seen in OP. Chart reviewed and patient interviewed. Discussed general anesthesia with her and she agrees to proceed. ASA3 INCREASED RISK MAL1 documented in this encounter ED Notes * Guillermina Ambrose RN - 11/03/2013 2:00 PM CDT Female to desk inquiring what is taking surgery so long that they were told 30 m inutes ago that it would "be only about 15 minutes." Made aware not sure when p t is to go to surgery but will try to get an estimated time frame. Female also requesting that pt be given more pain medication because "she is get ting grouchy." * Kathy Ziegler RN - 11/03/2013 1:[address] Walker in to talk w/ pt about CT results and treatment plan. Nursing superv isor contacted for paging in of surgery crew. * Matthew Walker MD - 11/03/2013 11:36 AM CDT HISTORY OF PRESENT ILLNESS Opal Benavidez, a 23 y.o. female presents to the ED with a Chief Complaint of Abdominal Pain The history is provided by the patient. The patient arrived by EMS. The patien t arrived from home. Early left sided ectopic treated 10/21 with IM MTX. Three days ago star romero to have heavy period and cramping. This morning pain on right and left lower abd was so bad she couldn't get out of bed and around ten or eleven became into lerable and she was doubled over in bed, dizzy and light headed. REVIEW OF SYSTEMS Review of Systems Constitutional: Negative for fever and chills. Respiratory: Negative for shortness of breath. Gastrointestinal: Positive for abdominal pain (bilateral lower abd pain). Negati ve for nausea and vomiting. Genitourinary: Positive for vaginal bleeding (three pads today with some large c lots, bleeding started three days ago) and pelvic pain. Neurological: Positive for dizziness (on standing today) and light-headedness. N egative for syncope and weakness. PAST MEDICAL HISTORY REVIEWED MEDICAL Patient has a past medical history of [...] pain, Malig nant hyperthermia, or Latex sensitivity. SURGICAL Patient has past surgical history that includes section (12/2005); pablo agustín bypass (01/11/12); hysteroscopy,dx,sep proc (05/15/2012); and dilation/curetta ge,diagnostic (05/15/2012). FAMILY Patient's family history includes Cancer in her paternal grandfather. SOCIAL reports that she has been smoking Cigarettes. She has a 5 pack-year smoking hi story. She has never used smokeless tobacco. She reports that she uses illicit d rugs (Marijuana). She reports that she currently engages in sexual activity. She reports using the following method of control/protection: None. She repor ts that she does not drink alcohol. PROBLEM LIST Patient has ADD (attention deficit disorder); Anovulation; Encounter to discuss test results; History of recurrent miscarriages, not currently ; Postope rative follow-up; Vaginal odor; Obesity; Multiple food allergies; Well woman exa m with routine gynecological exam; Amenorrhea; Pelvic pain in female; Positive p regnancy test; Ectopic ; and Ectopic , tubal on her problem li st. ALLERGIES Sulfa (sulfonamide antibiotics) HOME MEDICATIONS Patient's Home Medications Current Home Medications AMPHETAMINE-DEXTROAMPHETAMINE SR 24 HOUR (ADDERALL XR) 30 MG ORAL CAPSULE CETIRIZINE (ZYRTEC) 10 MG ORAL TABLET FLUTICASONE (FLONASE) 50 MCG/SPRAY BOTH NOSTRIL SPSN FOLIC ACID (FOLVITE) 1 MG TABLET LORATADINE (CLARITIN) 10 MG ORAL TABLET OMEPRAZOLE (PRILOSEC) 40 MG ORAL CPDR PROGESTERONE MICRONIZED (PROMETRIUM) 200 MG CAPSULE Medications Modified during this Encounter Medications Discontinued during this Encounter PHYSICAL EXAM INITIAL VS BP: 115/60 mmHg (11/03/13 1130), Heart Rate (Monitored): (not recorded), Resp: 1 6 (11/03/13 1130), Temp: (not recorded), Temp src: (not recorded), SpO2: 98 % (0 11/03/13 1130), Height: (not recorded), Weight: (not recorded), BMI (Calculated): (not recorded) Patient's last menstrual period was 09/13/2013. Physical Exam Constitutional: She is oriented to person, place, and time. Neck: Normal range of motion. Neck supple. Cardiovascular: Normal rate and normal heart sounds. Pulmonary/Chest: Effort normal and breath sounds normal. Abdominal: Soft. There is tenderness. There is guarding. Musculoskeletal: Normal range of motion. Neurological: She is alert and oriented to person, place, and time. She has norm al reflexes. Skin: Skin is warm. No rash noted. No pallor. DIAGNOSTICS LAB: Results for orders placed during the hospital encounter of 11/03/13 (from the [facility] 24 hour(s)) CBC WITH DIFFERENTIAL Result Value Range WBC 13.2 (*) 3.0-10.4 K/uL RBC 3.88 3.77-4.97 M/uL HEMOGLOBIN 12.4 11.9-15.0 g/dL HEMATOCRIT 36.3 34.4-43.6 % MCV 93.5 79.0-100.0 fL MCH 31.9 28.0-34.0 pg MCHC 34.2 31.0-35.0 g/dL RDW 13.3 11.5-15.1 % PLATELETS 322 148-408 K/uL MPV 7.7 7.4-10.6 fL NEUTROPHILS 48 43-73 % LYMPHOCYTES 46 19-47 % MONOCYTES 4 3-9 % EOSINOPHILS 2 0-6 % BASOPHILS 0 0-1 % NEUTROPHIL ABSOLUTE 6.33 1.30-7.60 K/uL LYMPHOCYTE ABSOLUTE 5.98 (*) 0.60-4.90 K/uL MONOCYTE ABSOLUTE 0.57 0.10-0.90 K/uL EOSINOPHIL ABSOLUTE 0.21 0.00-0.40 K/uL BASOPHILS ABSOLUTE 0.05 0.00-0.10 K/uL COMPREHENSIVE METABOLIC PANEL Result Value Range SODIUM 137 134-145 mmol/L POTASSIUM 3.8 3.5-5.1 mmol/L CHLORIDE 109 (*) 98-107 mmol/L CO2 25 22-31 mmol/L CALCIUM 8.5 8.5-10.1 mg/dL BUN 7 7-20 mg/dL CREATININE 0.71 0.51-0.95 mg/dL GLUCOSE 116 (*) 70-100 mg/dL TOTAL PROTEIN 7.1 6.4-8.2 g/dL ALBUMIN 3.6 3.4-5.0 g/dL BILIRUBIN TOTAL 0.4 <=1.1 mg/dL ALKALINE PHOSPHATASE 60 40-136 U/L AST 16 10-40 U/L ALT 33 25-70 U/L GFR >60 >=60 mL/min/1.73 sq meter GFR, >60 >=60 mL/min/1.73 sq meter HCG QUANTITATIVE, BLOOD Result Value Range HCG QUANT, BLOOD 1160.0 (*) 0.0-2.0 mIU/mL RADIOLOGY: CT ABDOMEN PELVIS WO CONTRAST (Results Pending) EKG: PROCEDURES Procedures MEDICAL DECISION MAKING AND PLAN OF CARE REEVALUATION CASE DISCUSSED Medications Administered During the ED Stay from 11/03/2013 1128 to 11/03/2013 1 310 Date/Time Order Dose Route Action 11/03/2013 1230 sodium chloride 0.9% bolus solution 1,000 mL 0 mL IV Stopped 11/03/2013 1144 sodium chloride 0.9% bolus solution 1,000 mL 1,000 mL IV New B ag 11/03/2013 1143 fentaNYL PF (SUBLIMAZE) 50 mcg/mL injection 50 mcg 50 mcg IV P ush 11/03/2013 1235 fentaNYL PF (SUBLIMAZE) 50 mcg/mL injection 50 mcg 50 mcg IV G iven 11/03/2013 1237 sodium chloride 0.9 % flush injection 10 mL 10 mL IV Given 11/03/2013 1303 fentaNYL PF (SUBLIMAZE) 50 mcg/mL injection 25 mcg 25 mcg IV G iven . New Prescriptions for this Encounter LAST VITALS BP: 100/44 mmHg (11/03/13 1300), Heart Rate (Monitored): (not recorded), Resp: 1 6 (11/03/13 1135), Temp: (not recorded), Temp src: (not recorded), SpO2: 100 % ( 11/03/13 1300) CLINICAL IMPRESSION Final diagnoses: Ectopic , tubal CODING Coding DISPOSITION, EDUCATION AND MEDICATION RECONCILIATION Medications reconciled. See after visit summary for patient education on discha rged patients. Discussed on arrival with Dr Marcos. IV fluids given, VS stable, not tachycardic. Will get CBC, CMP HCG. Feeling better with IV Fentanyl. Will discuss further wi th Dr Marcos. Discussed with Dr Marcos, will get CT abd/pelvis looking for hemoperitoneum. Pt h emodynamically remains stable. Last meal last night. Last drink of water about [address] Marcos has direct ed for the surgery crew to assemble to take the pt to immediate surgery. documented in this encounter Plan of Treatment Not on filedocumented as of this encounter Procedures Comments Procedure Name Priority Date/Time Associated Diag nosis CBC WITHOUT DIFFERENTIAL Routine 11/04/2013 5:35 AM CDT PATHOLOGY Routine 11/03/2013 3:03 PM CDT LAPAROTOMY EXPLORATORY 11/03/2013 Ectopic pregna ncy 1:58 PM CDT Pelvic pain in female Abdominal pain Hemoperitoneum CT ABDOMEN PELVIS WO Stat 11/03/2013 CONTRAST 12:23 PM CDT CBC WITH DIFFERENTIAL Stat 11/03/2013 11:43 AM CDT HCG QUANTITATIVE, BLOOD Stat 11/03/2013 11:43 AM CDT COMPREHENSIVE METABOLIC Stat 11/03/2013 PANEL 11:43 AM CDT documented in this encounter Results * CBC WITHOUT DIFFERENTIAL (11/04/2013 5:35 AM CDT) WBC 9.1 3.0 - 10.4 K/uL [facility] [place] RBC 2.77 (L) 3.77 - 4.97 M/uL [facility] [place] HEMOGLOBIN 8.8 (L) 11.9 - 15.0 g/dL [facility] [place] HEMATOCRIT 25.6 (L) 34.4 - 43.6 % [facility] [place] MCV 92.5 79.0 - 100.[address] [facility] [place] MCH 32.0 28.0 - 34.[address] [facility] [place] MCHC 34.6 31.0 - 35.0 g/dL [facility] [place] PLATELETS 179 148 - 408 K/uL [facility] [place] MPV 9.2 7.4 - 10.[address] [facility] [place] RDW 13.0 11.5 - 15.1 % [facility] Specimen Blood Performing Organization Address City/State/Zipcode Ph one Number [facility] CLIA# [id number] [facility] [place] [address] [address] LAB[facility]ATORY [facility] CLIA# [id number] [place] [address] - [address] * PATHOLOGY (11/03/2013 3:03 PM CDT) CASE REPORT Surgical Pathology Report [facility] Case: [id number] JAYSHREE ZAIDI -------- Authorizing Provider: Evangelista Marcos DO Ordering Provider: Evangelista Marcos DO Ordering Location: [facility] Collected: 11/03/2013 3:03 PM Operating Room Pathologist: Leon Li MD Received: 11/04/2013 11:39 AM Specimen: , Left fallopian tube and products of conception. FINAL DIAGNOSIS Fallopian tube, left, [facility] Electr onically salpingectomy: Ectopic PATHOLOGY signed by gestation. JAYSHREE ZAIDI Todd Skin, excision: Cicatrix. MD Roger on 11/05/2013 at CPT Code: 01894 7:28 PM ICD9 Code: 633.10 OPERATIVE Exploratory laparotomy. [facility] PROCEDURE PATHOLOGY CONSULTANTJAYSHREE Pritchard CLINICAL Ruptured ectopic , [facility] INFORMATION pelvic pain, abdominal pain, PATHOLOG Y and hemoperitoneum. JAYSHREE ZAIDI GROSS The specimen is received in [facility] DESCRIPTION formalin. The first fragment PATHOLOG Y consists of a 5.0x2.5x2.0 cm JAYSHREE ZAIDI aggregate of blood coagulum and gonzalez-olmstead soft tissue along some edges. There is no embryonic or tissue identified. The second specimen consists of a fallopian tube with fimbria. It measures 5.5 cm long and up to 1.5 cm in diameter. The proximal tube is about 0.5 cm in diameter. Serial sections along the length of the tube show a dilated distal lumen containing blood coagulum. There is no embryonic or tissue identified. Spongy olmstead tissue is noted near the fimbriated end. Also received in the specimen container is an 8x1.5x1.0 cm segment of skin and subcutaneous tissue. The skin surface shows a wrinkled midline longitudinal scar. Director Of Exhibits sections are submitted in four cassettes. Gross exam performed at [facility], [address] [place] [address], [place] [address] MICROSCOPIC Microscopic examination shows [facility] DESCRIPTION some blood coagulum with PATHOLOGY decidua, fibrin and JAYSHREE ZAIDI inflammatory cells at some edges of the blood coagulum. Chorionic villi are also present. They show some degeneration but no cistern formation. There is no excessive trophoblastic proliferation. Sections of fallopian tube show a dilated lumen with acute hemorrhage. The muscular wall appears edematous. Chorionic villi are noted within the tubal lumen and within the wall of the tube. Chorionic villi also appear mixed with the fimbriated end. The villi associated with the fallopian tube also show some degenerative features but no cistern formation. There is no embryonic or tissue identified. A cross section of skin and subcutaneous tissue shows altered dermal collagen with increased capillary vascularity, findings which are consistent with scar. Microscopic exam performed at [facility], [address] [place] [address], [place] [address] Specimen Tissue Performing Organization Address City/[facility] [place] one Number [facility] CLIA# [id number] [place] [phone] JAYSHREE ZAIDI [address] [place] [address] PATHOLOGY CLIA# [id number] [place] [id number] [address] CONSULTANTSJAYSHREE [address] [place] [address] * CT ABDOMEN PELVIS WO CONTRAST (11/03/2013 12:23 PM CDT) Specimen Impressions Performed At IMPRESSION: Probable hemoperitoneum. Probable rupture of left ectopic INTERFACE SYSTEM . Narrative Performed At CT abdomen and pelvis without contrast INTERFACE SYS TEM HISTORY: Treatment of ectopic with pain Multiple axial images are obtained thro ugh the abdomen and pelvis with no contrast given. FINDINGS: Abdomen: The lung bases appear normal . There is fluid seen around the liver and spleen. There is what appears to be an anastomotic line involving the stomach with question of prior gastric reduction surgery. The adrenals and kidneys appea r normal. The visualized portion of the bowel is normal. There i s fluid seen in the pericolic gutters. Pelvis: There appears to be a complex f luid collection in the left adnexal region. This may be site of ect opic . There is fluid in the pelvis. This could represent a r uptured ectopic. The visualized portion of the bowel is normal. The alexei catina appears normal. Procedure Note Interface, [facility] [place] [facility] Incoming Radiology Results - 11/04/2013 9:[address] abdomen and pelvis without contrast HISTORY: Treatment of ectopic with pain Multiple axial images are obtained through the abdomen and pelvis with no contrast given. FINDINGS: Abdomen: The lung bases appear normal. There is fluid seen around the liver and spleen. There is what appears to be an anastomotic line involving the stomach with question of prior gastric reduction surgery. The adrenals and kidneys appear normal. The visualized portion of the bowel is normal. There is fluid seen in the pericolic gutters. Pelvis: There appears to be a complex fluid collection in the left adnexal region. This may be site of ectopic . There is fluid in the pelvis. This could represent a ruptured ectopic. The visualized portion of the bowel is normal. The uterus appears normal. IMPRESSION IMPRESSION: Probable hemoperitoneum. Probable rupture of left ectopic . Performing Organization Address City/State/Zipcode Ph one Number INTERFACE SYSTEM INTERFACE SYSTEM Refer to clinic/hospital department * HCG QUANTITATIVE, BLOOD (11/03/2013 11:43 AM CDT) HCG QUANT, 1,160.0 (H) 0.0 - 2.0 mIU/mL [facility] Specimen Blood Narrative Performed At This test is intended for monitoring status only. [facility] Healthy non- <6.0 mIU/mL SERVICES - FO RT Weeks post LMP HCG (mIU/mL) [place] 1.3 - 2 16 - 156* 2 - 3 101 - 3836 3 - 4 1110 - 08419 4 - 5 2560 - 44465 5 - 6 35439 - 391639 6 - 7 273097 - 749696 7 - 11 235972 - 685474 11 - 16 4040 - 885045 16 - 21 4720 - 18608 21 - 39 8374 - 61549 *Levels less than 16.0 mIU/ml should be used in conjunction with other data available to the physician and if clini john needed, followed by a second sample obtained after 48 hours. Performing Organization Address City/State/Zipcode Ph one Number [facility] CLIA# [id number] [place] [address] [address] [facility] CLIA# [id number] [facility] [place] [address] - [address] * COMPREHENSIVE METABOLIC PANEL (11/03/2013 11:43 AM CDT) [facility] SODIUM 137 134 - 145 mmol/L [facility] [place] POTASSIUM 3.8 3.5 - 5.1 mmol/L [facility] [place] CHLORIDE 109 (H) 98 - 107 mmol/L [facility] [place] CO2 25 22 - 31 mmol/L [facility] [place] CALCIUM 8.5 8.5 - 10.1 mg/dL [facility] [place] BUN 7 7 - 20 mg/dL [facility] [place] CREATININE 0.71 0.51 - 0.95 mg/dL [facility] [place] GLUCOSE 116 (H) 70 - 100 mg/dL [facility] [place] TOTAL PROTEIN 7.1 6.4 - 8.2 g/dL [facility] [place] ALBUMIN 3.6 3.4 - 5.0 g/dL [facility] [place] BILIRUBIN TOTAL 0.4 <=1.1 mg/dL [facility] [place] ALKALINE 60 40 - 136 U/L [facility] [place] AST 16 10 - 40 U/L [facility] ALT 33 25 - 70 U/L [facility] [place] GFR >60 >=60 mL/min/1.[address] [facility] Comment: meter LABORATORY eGFR has not been validated SERVICES [facility] for use in the elderly (> [...] GFR result. GFR, >60 >=60 mL/min/1.[address] [facility] meter [facility] - [place] Specimen Blood Performing Organization Address City/State/Zipcode Ph one Number [facility] CLIA# [id number] [place] [address] - [place] [address] [place] [address] [facility] CLIA# [id number] [place] [address] - [place] [address] [place] [address] * CBC WITH DIFFERENTIAL (11/03/2013 11:43 AM CDT) WBC 13.2 (H) 3.0 - 10.4 K/uL [facility] [place] RBC 3.88 3.77 - 4.97 M/uL [facility] [place] HEMOGLOBIN 12.4 11.9 - 15.0 g/dL [facility] [place] HEMATOCRIT 36.3 34.4 - 43.6 % [facility] [place] MCV 93.5 79.0 - 100.0 fL [facility] [place] MCH 31.9 28.0 - 34.0 pg [facility] [place] MCHC 34.2 31.0 - 35.0 g/dL [facility] [place] RDW 13.3 11.5 - 15.1 % [facility] [place] PLATELETS 322 148 - 408 K/uL [facility] [place] MPV 7.7 7.4 - 10.6 fL [facility] [place] NEUTROPHILS 48 43 - 73 % [facility] [place] LYMPHOCYTES 46 19 - 47 % [facility] [place] MONOCYTES 4 3 - 9 % [facility] [place] EOSINOPHILS 2 0 - 6 % [facility] [place] BASOPHILS 0 0 - 1 % [facility] [place] NEUTROPHIL 6.33 1.30 - 7.60 K/uL [facility] [place] LYMPHOCYTE 5.98 (H) 0.60 - 4.90 K/uL [facility] [place] MONOCYTE 0.57 0.10 - 0.90 K/uL [facility] [place] EOSINOPHIL 0.21 0.00 - 0.40 K/uL [facility] [place] BASOPHILS 0.05 0.00 - 0.10 K/uL [facility] [place] Specimen Blood Performing Organization Address City/State/Zipcode Ph one Number [facility] CLIA# [id number] [place] [address] - [place] [address] [place] [address] LABORATORY SERVICES CLIA# [id number] [place] [address] - [address] documented in this encounter Visit Diagnoses Diagnosis Ectopic Unspecified ectopic without i ntrauterine Pelvic pain in female Unspecified symptom associated with fem candi genital organs Abdominal pain Abdominal pain, unspecified site Hemoperitoneum Hemoperitoneum (nontraumatic) documented in this encounter Administered Medications Action Date Dose Rate Site Medication Order MAR Action 11/03/2013 2:23 PM CDT 2,000 mg cefoxitin (MEFOXIN) infusion Given INTRA-PROCEDURE PRN, Starting 11/03/13 at 1423, Until 11/03/13 at 1536, Routine, Intra-op documented in this encounter
--- OUTSIDE RECORDS SUMMARY | 2019-09-21 04:09 | XMS REPORT | Encounter Summary ---
Author Author [facility] Organization [facility] Address Unknown Phone Unavailable Care Team Providers Care Project Inspector Name Role Phone Self, Lucius Heart MD [...] did receive 50mcg IV Fentanyl per EMS SENIOR IT ARCHITECT * Auth/Cert Referred By Contact Referred To Contact Status Reason Specialty Diagnoses / Procedures [facility] S[facility] [address] [place] [address] Inpatient Diagnoses Ectopic Pelvic pain in female Abdominal pain Hemoperitoneum P rocedures LAPAROTOMY EXPLORATORY Encounter Details Care Team Description Date Type Department Matthew Walker MD NO ADDRESS ON FILE Evangelista Marcos, DO [address] [place] [address] Ectopic , tubal 11/03/2013 Hospital [facility] - [facility] 11/04/2013 [address] [place] [address] Social History Date Tobacco Use [...] PM CDT Physician Discharge Summary Patient: Opal Dimas Benavidez / 23 y.o. / female : [...] Discharge date: 11/04/2013 Discharging Physician: Evangelista Marcos, DO Discharge Exam: General appearance: active, alert, in [...] Ta ke 1 Cap by mouth daily gas regulator repairer. 30 Cap 0 cetirizine (ZYRTEC) 10 mg [...] XR Take 1 Cap by mouth daily gas regulator repairer. Provider: Lucius Murry Quantity: 30 Cap Refills: [...] be sent through Care Everywhere.* : ECTOPIC (ISRAELI) documented in this encounter Medications at Time of Discharge Start Date End Date Medication Sig Dispensed Refills 10/08/2012 05/15/2014 amphetamine-dextroampheta Take 1 Cap by 30 Cap 0 mine SR 24 hour (ADDERALL mouth daily XR) 30 mg Oral capsule gas regulator repairer. 07/04/2012 08/28/2014 cetirizine (ZYRTEC) 10 mg Take [...] 11/03/2013 4:45 PM CDT Pt received from [facility] to rm 117, is very groggy but [...] of dilation @ 3 cm. Delivered in [place], [place] (rqt) Hx gastric bypass 01/11/12 gastric sleeve Pr hysteroscopy,dx,sep proc 05/15/2012 HYSTEROSCOPY performed by Evangelista Marcos DO at [facility] [place] Pr dilation/curettage,diagnostic 05/15/2012 DILATATION AND CURETTAGE SUCTION performed by Evangelista Marcos DO at [facility] (Not in a hospital admission) Allergies [...] output data in the 24 hours ending 11/03/13 1326 BP 100/44 | Resp 16 | [...] 31.09 kg/m2 | SpO2 97% | L MP 09/13/2013 Pain Rating: Pain Rating: Rest: 4 [...] 11/03/2013 4:18 PM CDT Patient resting intermittently, EXECUTIVE STEWARD of Fentanyl is infusing as ordered. Dressing [...] area (the tissue was grasped with a Seth and sent to pathology. The tube was [...] in a running subcuticular manner with excellent restorationist of the n ormal skin planes and [...] oral airway in place, rem stanley by LALITHA after arriving to PACU. Patient moving all [...] the hospital encounter of 11/03/13 (from the [facility] 24 hour(s)) CBC WITH DIFFERENTIAL Result [...] CDT) WBC 9.1 3.0 - 10.4 K/uL [facility] [place] RBC 2.77 (L) 3.77 - 4.97 M/uL [facility] [place] HEMOGLOBIN 8.8 (L) 11.9 - 15.0 g/dL [facility] [place] HEMATOCRIT 25.6 (L) 34.4 - 43.6 % [facility] [place] MCV 92.5 79.0 - 100.0 fL [facility] [place] MCH 32.0 28.0 - 34.0 pg [facility] [place] MCHC 34.6 31.0 - 35.0 g/dL [facility] [place] PLATELETS 179 148 - 408 K/uL [facility] [place] MPV 9.2 7.4 - 10.6 [facility] [place] RDW 13.0 11.5 - 15.1 % [facility] [place] Specimen Blood Performing Organization Address City/State/Zipcode Ph one Number [facility] CLIA# [id number] TESHA GORDON [address] - [facility] [place] [address] [place] [address] CLIA# [id number] TESHA [place]ON [address] - [address] * PATHOLOGY (11/03/2013 3:03 PM CDT) CASE REPORT Surgical Pathology Report [facility] Case: [id number] CONSULTANTJAYSHREE Pritchard -------- Authorizing Provider: Evangelista Marcos DO Ordering Provider: Evangelista Marcos DO Ordering Location: [facility] Collected: 11/03/2013 3:03 PM Operating Room Pathologist: Leon Li MD Received: 11/04/2013 11:39 AM Specimen: , Left fallopian tube and products of conception. FINAL DIAGNOSIS Fallopian tube, left, [facility] Electr onically salpingectomy: Ectopic PATHOLOGY signed by gestation. CONSULTANTJAYSHREE Pritchard Todd Skin, excision: Barbara. MD Roger on 11/05/2013 at CPT Code: 72106 7:28 PM ICD9 Code: 633.10 OPERATIVE Exploratory laparotomy. [facility] PROCEDURE PATHOLOGY CONSULTANTJAYSHREE Pritchard CLINICAL Ruptured ectopic , [facility] INFORMATION pelvic pain, abdominal pain, PATHOLOG Y and hemoperitoneum. JAYSHREE ZAIDI GROSS The specimen is received in [facility] DESCRIPTION formalin. The first fragment PATHOLOG Y [...] surface shows a wrinkled midline longitudinal scar. Machine Umbrella Tipper sections are submitted in four cassettes. Gross exam performed at [facility], [address] [place] [address] MICROSCOPIC Microscopic examination shows [facility] DESCRIPTION some blood coagulum with PATHOLOGY decidua, [...] consistent with scar. Microscopic exam performed at [facility], [address] [place] [address] Specimen Tissue Performing Organization Address City/[facility] Ph one Number [facility] CLIA# [id number] [place] [address] JAYSHREE ZAIDI [address] [place] [address] PATHOLOGY CLIA# [id number] [place] [id number] 1 JAYSHREE ZAIDI [address] [place] [address] * CT ABDOMEN PELVIS WO CONTRAST (11/03/2013 12:23 PM CDT) Specimen Impressions Performed At IMPRESSION: Probable hemoperitoneum. Probable rupture of left ectopic INTERFACE SYSTEM . Narrative Performed At CT abdomen and pelvis without contrast INTERFACE SYS TEM HISTORY: Treatment of ectopic with pain Multiple axial images are obtained thro [facility] the abdomen and pelvis with no contrast [...] alexei catina appears normal. Procedure Note Interface, [facility] Incoming Radiology Results - 11/04/2013 9:37 [...] of left ectopic . Performing Organization Address City/State/[facility] one Number INTERFACE SYSTEM INTERFACE SYSTEM Refer to clinic/hospital department * HCG QUANTITATIVE, BLOOD (11/03/2013 11:43 AM CDT) HCG QUANT, 1,160.0 (H) 0.0 - 2.0 mIU/mL [facility] [place] Specimen Blood Narrative Performed At This test is intended for monitoring status only. [facility]OR[facility]ORY Healthy non- <6.0 mIU/mL SERVICES - FO RT Weeks post LMP HCG (mIU/mL) [place] 1.3 - 2 16 - 156* 2 - 3 101 - 6570 3 - 4 1110 - 01422 4 - 5 7550 - 83095 5 - 6 57123 - 738348 6 - 7 859244 - 715104 7 - 11 116053 - 384497 11 - 16 7080 - 143715 16 - 21 4139 - 08042 21 - 39 6625 - 63545 *Levels less than 16.0 mIU/ml should be used in conjunction with other data available to the physician and if clini john needed, followed by a second sample obtained after 48 hours. Performing Organization Address City/State/Zipcode Ph one Number [facility] CLIA# [id number] [place] [address] [address] LABORATORY SERVICES CLIA# [id number] [place] [address] - [address] * COMPREHENSIVE METABOLIC PANEL (11/03/2013 11:43 AM CDT) [facility] SODIUM 137 134 - 145 mmol/L [...] [facility] [place] CREATININE 0.71 0.51 - 0.95 mg/dL [facility] [place] GLUCOSE 116 (H) 70 - 100 mg/dL [facility] [place] TOTAL PROTEIN 7.1 6.4 - 8.2 g/dL [facility] [place] ALBUMIN 3.6 3.4 - 5.0 g/dL [facility] [place] BILIRUBIN TOTAL 0.4 <=1.1 mg/dL [facility] [place] ALKALINE 60 40 - 136 U/L [facility] [place] AST 16 10 - 40 U/L [facility] [place] ALT 33 25 - 70 U/L [facility] [place] GFR >60 >=60 mL/min/1.73 sq [facility] Comment: meter LABORATORY eGFR has not been validated SERVICES [facility] for use in the elderly (> [...] GFR result. GFR, >60 >=60 mL/min/1.73 sq [facility] LABORATORY SERVICES - [place] Specimen Blood Performing Organization Address City/State/[facility] Ph one Number [facility] CLIA# [id number] [place] [address] - [place] [address] [place] [address] LABORATORY SERVICES CLIA# [id number] [place] [address] - [place] [address] [place] [address] * CBC WITH DIFFERENTIAL (11/03/2013 11:43 AM CDT) WBC 13.2 (H) 3.0 - 10.4 K/uL [facility] [place] RBC 3.88 3.77 - 4.97 M/uL [facility] [place] HEMOGLOBIN 12.4 11.9 - 15.0 g/dL [facility] [...] 10.6 fL [facility] [place] NEUTROPHILS 48 43 - 73 % [facility] [...] LYMPHOCYTE 5.98 (H) 0.60 - 4.90 K/uL [facility] - [place] MONOCYTE 0.57 0.10 - 0.90 K/uL [facility] - [place] EOSINOPHIL 0.21 0.00 - 0.40 K/uL [facility] - [place] BASOPHILS 0.05 0.00 - 0.10 K/uL [facility] - [place] Specimen Blood Performing Organization Address City/State/Zipcode Ph one Number [facility] CLIA# [id number] TESHA GORD[place] [address] - [place] [address] [place] [address] LABORATORY SERVICES CLIA# [id number] [place] [address] - [address] documented in this encounter Visit Diagnoses Diagnosis Ectopic , tubal - Primary Tubal without intrauterine pr egnancy Pelvic pain in female Unspecified symptom associated with fem candi genital organs Abdominal pain Abdominal pain, unspecified site Hemoperitoneum Hemoperitoneum (nontraumatic) documented in this encounter Administered Medications Action Date Dose Rate Site Medication Order MAR Action 11/04/2013 5:20 AM CDT 10 mg bisacodyl (DULCOLAX) rectal suppository Given 10 mg 10 mg, Rectal, DAILY, First dose on 11/03/13 at 1645, Until Discontinued, Routine, Post-op - Floor 11/03/2013 5:00 PM CDT 5 mg diazepam (VALIUM) injection 5 mg Given 5 mg, IV, ONE TIME ONLY, 1 dose, 11/03/13 at 1700, Routine 11/04/2013 8:42 AM CDT 100 mg docusate sodium (COLACE) capsule 100 mg Given 100 mg, Oral, TWO TIMES DAILY, First dose on 11/03/13 at 2100, Until Discontinued, Routine, Post-op - Floor 100 mg Given 11/03/2013 9:44 PM CDT 11/04/2013 3:09 AM CDT 1,500 mcg fentaNYL citrate in NS (SUBLIMAZE) 1,500 Bag Switche d mcg/30 mL EXECUTIVE STEWARD IV, TITRATE, Starting 11/03/13 at 1545, Until 11/04/13 at 0815, Routin e Bolus 11/03/2013 7:55 PM CDT 1,500 mcg New Bag 11/03/2013 3:58 PM CDT 11/03/2013 1:03 PM CDT 25 mcg Arm, Rig ht fentaNYL PF (SUBLIMAZE) 50 mcg/mL Given injection 25 mcg 25 mcg, IV, ONE TIME ONLY, 1 dose, [place] 11/03/13 at 1315, Routine 11/03/2013 1:17 PM CDT 25 mcg Arm, Rig ht fentaNYL PF (SUBLIMAZE) 50 mcg/mL Given injection 25 mcg 25 mcg, IV, ONE TIME ONLY, 1 dose, [place] 11/03/13 at 1330, Routine 11/03/2013 11:43 AM CDT 50 mcg Arm, Rig ht fentaNYL PF (SUBLIMAZE) 50 mcg/mL Push injection 50 mcg 50 mcg, IV, ONE TIME ONLY, 1 dose, [place] 11/03/13 at 1145, Routine 11/03/2013 12:35 PM CDT 50 mcg Arm, Rig ht fentaNYL PF (SUBLIMAZE) 50 mcg/mL Given injection 50 mcg 50 mcg, IV, ONE TIME ONLY, 1 dose, [place] 11/03/13 at 1245, Routine 11/04/2013 8:42 AM CDT 800 mg ibuprofen (MOTRIN) tablet 800 mg Given 800 mg, Oral, EVERY 8 HOURS, 3 doses, First dose (after last modification) on Mon11/04/13 at 0115, Last dose on Mon11/04/13 at 1700, Routine 800 mg Given 11/04/2013 1:21 AM CDT 11/04/2013 6:26 AM CDT 125 mL/hr lactated ringers solution Bag Switched IV, at 125 mL/hr, CONTINUOUS, Starting [place] 11/03/13 at 1645, Until Mon11/04/13 at 0815, Routine, Post-op - Floor 125 mL/hr Bag Switched 11/03/2013 10:16 PM CDT 125 mL/hr Started by Another Clinician 11/03/2013 4:45 PM CDT 11/03/2013 9:44 PM CDT 4 mg ondansetron (ZOFRAN ODT) tablet 4 mg Given 4 mg, Oral, EVERY 4 HOURS PRN, Starting [place] 11/03/13 at 1800, Until Mon11/04/13 at 1710, Nausea/Emesis, Routine 11/04/2013 5:20 AM CDT 4 mg ondansetron (ZOFRAN ODT) tablet 4 mg Given 4 mg, Oral, EVERY 8 HOURS, First dose o n [place] 11/03/13 at 2200, Until Discontinued , Routine 11/04/2013 12:10 PM CDT 1 Tablet oxyCODONE-acetaminophen (PERCOCET) 5-325 Given mg per tablet 1 Tab 1 Tablet, Oral, EVERY 4 HOURS, 6 doses, First dose on 11/04/13 at 0800, Last dose on Mon11/05/13 at 0400, Routine 1 Tablet Given 11/04/2013 8:41 AM CDT 11/03/2013 5:05 PM CDT 10 mL sodium chloride 0.9 % flush injection 10 Given mL 10 mL, IV, SEE ADMIN INSTRUCTIONS, Starting 11/03/13 at 1416, Until Mon11/04/13 at 1710, Routine 10 mL Given 11/03/2013 5:00 PM CDT 11/03/2013 12:45 PM CDT 10 mL sodium chloride 0.9 % flush injection 10 Admin by mL Another 10 mL, IV, ONE TIME ONLY, 1 dose, Sun Clinician 11/03/13 at 1245, Routine (Comment) 10 mL Arm, Right Given 11/03/2013 12:37 PM CDT SODIUM CHLORIDE 0.9 % INJECTION SYRINGE 1 dose, Starting 11/03/13 at 1234, Until 11/03/13 at 1237, Toney OMNICELL: cabinet override, 11/03/2013 11:44 AM CDT 1,000 mL 2000 mL/hr Arm, Rig ht sodium chloride 0.9% bolus solution New Bag 1,000 mL 1,000 mL, IV, ONE TIME ONLY, 1 dose, Staples n 11/03/13 at 1145, at 2,000 mL/hr, Administer over 30 Minutes, Routine 11/03/2013 9:44 PM CDT 10 mg zolpidem (AMBIEN) tablet 10 mg Given 10 mg, Oral, DAILY AT BEDTIME, First dose on 11/03/13 at 2100, Until Discontinued, Routine documented in this encounter
--- OUTSIDE RECORDS SUMMARY | 2019-09-21 04:09 | XMS REPORT | Encounter Summary ---
Author Author [facility] Organization [facility] Address Unknown Phone Unavailable Care Team Providers Care Salesperson Florist Supplies Name Role Phone Self, Lucius Heart MD PCP Reason for Visit * Reason Comments Medication Refill Encounter Details Care Team Description Date Type Department Anuja Contreras RN 11/05/[address] [address] Social History Date Tobacco Use [...]
--- OUTSIDE RECORDS SUMMARY | 2019-09-21 04:09 | XMS REPORT | Encounter Summary ---
Author Author [facility] Organization [facility] Address Unknown Phone Unavailable Care Team Providers Care Social Economist Name Role Phone Jeniffer Tamayo MD PCP Reason for Visit * Reason Comments Medication Refill Encounter Details Care Team Description Date Type Department Jeniffer Tamayo MD [address] [place] [address] 02/10/2014 Refill [facility] Prim[facility] y Care [address] [address] Social History Date Tobacco Use [...]
--- OUTSIDE RECORDS SUMMARY | 2019-09-21 04:09 | XMS REPORT | Encounter Summary ---
Author Author [facility] Organization [facility] Address Unknown Phone Unavailable Care Team Providers Care Institutional Research Director Name Role Phone Self, Lucius Heart MD PCP Reason for Visit * Reason Comments Foreign Body in Eye Pt states that she has a sm all piece of wood in her left eye Encounter Details Care Team Description Date Type Department Walker, Matthew Calderon MD NO ADDRESS ON FILE Corneal foreign body, left, initial enco unter (Primary Dx) 01/04/[address] [facility] Emergency Department [address] [id number] Social History Date Tobacco Use Types Packs/Day [...] Signs Reading Time Taken Comments Vital Sign 110/61 01/04/2014 8:22 PM CDT Blood Pressure 90 01/04/2014 8:22 PM CDT Pulse 37.2 C (98.9 F) 01/04/2014 8:22 PM CDT Temperature 18 01/04/2014 8:22 PM CDT Respiratory Rate 99% 01/04/2014 8:22 PM CDT Oxygen Saturation - - Inhaled Oxygen Concentration 79.4 kg (175 lb) 01/04/2014 8:22 PM CDT Weight 154.9 cm (5' 1") 01/04/2014 8:22 PM CDT Height 33.07 01/04/2014 8:22 PM CDT Body Mass Index documented in this encounter Discharge Instructions * Instructions* Matthew Walker MD - 01/04/2014 Ilotycin opthalmic ointment four times A day to left eye for two days. If a sig nificant change in condition occurs see Dr or return to ER. * Attachments The following attachments cannot be sent through Care Everywhere.* FOREIGN BODY IN THE EYE (GREEK) documented in this encounter Medications at Time of Discharge Start Date End Date Medication Sig Dispensed Refills 01/04/2014 01/06/2014 erythromycin (ILOTYCIN) 5 Administer 3.5 Gram 0 mg/gram (0.5 %) ointment 0.25 Inches in left eye every 6 hours for 2 days. 10/08/2012 05/15/2014 amphetamine-dextroampheta Take 1 Cap by 30 Cap 0 mine SR 24 hour (ADDERALL mouth daily XR) 30 mg Oral capsule heel slugger. 07/04/2012 08/28/2014 cetirizine (ZYRTEC) 10 mg Take 1 Tab by 30 Tab 1 Oral tablet mouth daily. documented as of this encounter ED Notes * Matthew Walker MD - 01/04/2014 8:42 PM CDT HISTORY OF PRESENT ILLNESS Opal Benavidez, a 23 y.o. female presents to the ED with a Chief Complaint of Foreign Body in Eye The history is provided by the patient. The patient arrived by private vehicle. The patient arrived from home. Foreign Body in Eye This is a new problem. The current episode started less than 1 hour ago. The pro blem occurs constantly. There is a problem in the left eye. Injury mechanism: wa s folding laundry and something got in her eye. REVIEW OF SYSTEMS Review of Systems PAST MEDICAL HISTORY REVIEWED MEDICAL Patient has a past medical history of ADD (attention deficit disorder with hype ractivity); Obesity (BMI 30.0-39.9) (2009); and Depression. She also has no past [...] iagnostic (05/15/2012); and exploratory of abdomen (11/03/2013). FAMILY Patient's family history includes Cancer in her paternal grandfather. SOCIAL reports that she has been smoking Cigarettes. She has a 1.25 pack-year smoking history. She has never used smokeless tobacco. She reports that she uses illicit drugs (Marijuana). She reports that she currently engages in sexual activity. She reports using the following method of control/protection: None. She re ports that she does not drink alcohol. PROBLEM LIST Patient has ADD (attention deficit disorder); Anovulation; Encounter to discuss test results; History of recurrent miscarriages, not currently ; Postope rative follow-up; Vaginal odor; Obesity; Multiple food allergies; Well woman exa m with routine gynecological exam; Amenorrhea; Pelvic pain in female; Positive p regnancy test; Ectopic ; Ectopic , tubal; Abdominal pain; Hemo peritoneum; and Corneal foreign body on her problem list. ALLERGIES Sulfa (sulfonamide antibiotics) HOME MEDICATIONS Patient's Home Medications Current Home Medications ACETAMINOPHEN-CODEINE (TYLENOL-CODEINE #3) 300-30 MG TABLET AMPHETAMINE-DEXTROAMPHETAMINE SR 24 HOUR (ADDERALL XR) 30 MG ORAL CAPSULE CETIRIZINE (ZYRTEC) 10 MG ORAL TABLET DOCUSATE SODIUM (COLACE) 100 MG CAPSULE FLUTICASONE (FLONASE) 50 MCG/SPRAY BOTH NOSTRIL SPSN FOLIC ACID (FOLVITE) 1 MG TABLET IBUPROFEN (MOTRIN) 800 MG TABLET OMEPRAZOLE (PRILOSEC) 40 MG ORAL CPDR OXYCODONE-ACETAMINOPHEN (PERCOCET) 5-325 MG TABLET Medications Modified during this Encounter Medications Discontinued during this Encounter PHYSICAL EXAM INITIAL VS BP: 110/61 mmHg (01/04/142021), Heart Rate (Monitored): (not recorded), Resp: 1 8 (01/04/142021), Temp: 98.9 F (37.2 C) (01/04/142021), Temp src: Tympanic (01/04/142021), SpO2: 99 % (01/04/142021), Height: 5' 1" (154.9 cm) (01/04/142021), Weight: 79.379 kg (01/04/142021), BMI (Calculated): 33.14 (01/04/14) No LMP recorded. Physical Exam Eyes: DIAGNOSTICS LAB: RADIOLOGY: EKG: PROCEDURES Procedures Using tetracaine drops anesthetized left eye. flourescein stain showed only FB n o abrasion. Using eye spud removed the FB without difficulty. MEDICAL DECISION MAKING AND PLAN OF CARE REEVALUATION CASE DISCUSSED Medications Administered During the ED Stay from 01/04/20142013 to 01/04/2014 2 042 Date/Time Order Dose Route Action 01/04/20142026 tetracaine HCl (PF) 0.5 % ophthalmic solution 2 Drop 2 Drop Le ft Eye Given 01/04/20142028 sodium chloride 0.9 % flush injection 10 mL 10 mL See Admin In structions Given 01/04/20142027 fluorescein (FLUORETS) strip 1 mg 1 mg Left Eye Given . New Prescriptions for this Encounter LAST VITALS BP: 110/61 mmHg (01/04/142021), Heart Rate (Monitored): (not recorded), Resp: 1 8 (01/04/142021), Temp: 98.9 F (37.2 C) (01/04/142021), Temp src: Tympanic (01/04/142021), SpO2: 99 % (01/04/142021) CLINICAL IMPRESSION Final diagnoses: Corneal foreign body, left, initial encounter CODING Coding DISPOSITION, EDUCATION AND MEDICATION RECONCILIATION Medications reconciled. See after visit summary for patient education on discha rged patients. Ilotycin opthalmic ointment four times A day to left eye for two days. If a sig nificant change in condition occurs see Dr or return to ER. documented in this encounter Plan of Treatment Not on filedocumented as of this encounter Visit Diagnoses Diagnosis Corneal foreign body, left, initial enc ounter - Primary Corneal foreign body Foreign body in cornea documented in this encounter Administered Medications Action Date Dose Rate Site Medication Order MAR Action 01/04/2014 8:28 PM CDT 1 mg fluorescein (FLUORETS) strip 1 mg Given 1 mg (1 Strip), Left Eye, ONE TIME ONLY , 1 dose, 01/04/14 at 2030, Routine 01/04/2014 8:29 PM CDT 10 mL Eye, Lef t sodium chloride 0.9 % flush injection 10 Given mL 10 mL, See Admin Instructions, ONE TIME ONLY, 1 dose, 01/04/14 at 2029, Routine 01/04/2014 8:27 PM CDT 2 Drops tetracaine HCl (PF) 0.5 % ophthalmic Given solution 2 Drop 2 Drop, Left Eye, ONE TIME ONLY, 1 dose , 01/04/14 at 2029, Routine documented in this encounter
--- OUTSIDE RECORDS SUMMARY | 2019-09-21 04:09 | XMS REPORT | Encounter Summary ---
Author Author [facility] Organization [facility] Address Unknown Phone Unavailable Care Team Providers Care Lactation Coordinator Name Role Phone Self, Lucius Heart MD PCP Reason for Visit * Reason Comments Headache light sensitivity and heada vidya since this am. Post surgery 2 days. Encounter Details Care Team Description Date Type Department Matthew Walker MD NO ADDRESS ON FILE Headache (Primary Dx) 11/05/2013 Emergency [facility] Emergency Department [address] [phone] Social History Date Tobacco Use Types Packs/Day [...] Signs Reading Time Taken Comments Vital Sign 115/59 11/05/2013 10:31 PM CDT Blood Pressure 94 11/05/2013 10:31 PM CDT Pulse 36.4 C (97.6 F) 11/05/2013 10:31 PM CDT Temperature - - Respiratory Rate 98% 11/05/2013 10:31 PM CDT Oxygen Saturation - - Inhaled Oxygen Concentration 77.1 kg (170 lb) 11/05/2013 10:31 PM CDT Weight 154.9 cm (5' 1") 11/05/2013 10:31 PM CDT Height 32.12 11/05/2013 10:31 PM CDT Body Mass Index documented in this encounter Discharge Instructions * Instructions* Matthew Walker MD - 11/05/2013 If a significant change in condition occurs see Dr or return to ER. . 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 07/04/2012 08/28/2014 cetirizine (ZYRTEC) 10 mg Take 1 Tab by 30 Tab 1 Oral tablet mouth daily. documented as of this encounter ED Notes * Matthew Walker MD - 11/05/2013 10:43 PM CDT HISTORY OF PRESENT ILLNESS Opal Benavidez, a 23 y.o. female presents to the ED with a Chief Complaint of Headache The history is provided by the patient. The patient arrived by private vehicle. The patient arrived from home. Headache This is a new problem. The current episode started more than 2 days ago. The pro blem occurs constantly. The problem has not changed (since awakening for GA has had an off and on headache, today just wont go away and having significant light sensitivity) since onset.The pain is located in the left unilateral region. The quality of the pain is described as dull and throbbing. The pain is at a severi ty of 6/10. The pain is moderate. The pain does not radiate. Associated symptoms include anorexia and nausea. Pertinent negatives include no fever, no vomiting and no dizziness. Treatments tried: tried some oxycodone and codeine without hel p. REVIEW OF SYSTEMS Review of Systems Constitutional: Negative for fever, chills and diaphoresis. Eyes: Positive for photophobia and pain (hurts some in left eye area). Gastrointestinal: Positive for nausea and anorexia. Negative for vomiting. Neurological: Positive for headaches. Negative for dizziness. PAST MEDICAL HISTORY REVIEWED MEDICAL Patient has [...] Ectopic ; Ectopic , tubal; Abdominal pain; and Hemoperitoneum on her problem list. ALLERGIES Sulfa (sulfonamide [...] this Encounter PHYSICAL EXAM INITIAL VS BP: 115/59 mmHg (11/05/132230), Heart Rate (Monitored): (not recorded), Resp: ( not recorded), Temp: 97.6 F (36.4 C) (11/05/132230), Temp src: Oral (2230), SpO2: 98 % (11/05/132230), Height: 5' 1" (154.9 cm) (11/05/132230), Weight: 77.111 kg (11/05/132230), BMI (Calculated): 32.19 (11/05/132230) Aruna alvarado's last menstrual period was 09/13/2013. Physical Exam Constitutional: She is oriented to person, place, and time. She appears well-dev eloped and well-nourished. She appears distressed. HENT: Head: Normocephalic and atraumatic. Right Ear: External ear normal. Left Ear: External ear normal. Mouth appears a little dry Eyes: Conjunctivae and EOM are normal. Pupils are equal, round, and reactive to light. Right eye exhibits discharge. Left eye exhibits no discharge. Neck: Normal range of motion. Neck supple. Cardiovascular: Normal rate and normal heart sounds. Pulmonary/Chest: Effort normal and breath sounds normal. Abdominal: Soft. There is tenderness. Some tenderness by incision. Incision looks dry and no induration Neurological: She is alert and oriented to person, place, and time. No cranial n erve deficit. She exhibits normal muscle tone. Coordination normal. DIAGNOSTICS LAB: Results for orders placed during the hospital encounter of 11/05/13 (from the [facility] 24 hour(s)) CBC WITH DIFFERENTIAL Result Value Range WBC 5.2 3.0-10.4 K/uL RBC 2.64 (*) 3.77-4.97 M/uL HEMOGLOBIN 8.6 (*) 11.9-15.0 g/dL HEMATOCRIT 25.4 (*) 34.4-43.6 % MCV 96.4 79.0-100.0 fL MCH 32.7 28.0-34.0 pg MCHC 34.0 31.0-35.0 g/dL RDW 13.0 11.5-15.1 % PLATELETS 175 148-408 K/uL MPV 8.5 7.4-10.6 fL NEUTROPHILS 67 43-73 % LYMPHOCYTES 25 19-47 % MONOCYTES 6 3-9 % EOSINOPHILS 2 0-6 % BASOPHILS 0 0-1 % NEUTROPHIL ABSOLUTE 3.48 1.30-7.60 K/uL LYMPHOCYTE ABSOLUTE 1.28 0.60-4.90 K/uL MONOCYTE ABSOLUTE 0.28 0.10-0.90 K/uL EOSINOPHIL ABSOLUTE 0.12 0.00-0.40 K/uL BASOPHILS ABSOLUTE 0.02 0.00-0.10 K/uL RADIOLOGY: EKG: PROCEDURES Procedures MEDICAL DECISION MAKING AND PLAN OF CARE REEVALUATION CASE DISCUSSED Medications Administered During the ED Stay from 11/05/2013 2201 to 11/05/2013 2 350 Date/Time Order Dose Route Action 11/05/2013 2349 sodium chloride 0.9% bolus solution 1,000 mL 0 mL IV Stopped 11/05/2013 225 sodium chloride 0.9% bolus solution 1,000 mL 1,000 mL IV Bolus 11/05/2013 225 fentaNYL PF (SUBLIMAZE) 50 mcg/mL injection 75 mcg 75 mcg IV P [facility] 11/05/2013 225 prochlorperazine (COMPAZINE) injection 5 mg 5 mg IV Push 11/05/2013 225 diphenhydrAMINE (BENADRYL) injection 25 mg 25 mg IV Push 11/05/2013 234 fentaNYL PF (SUBLIMAZE) 50 mcg/mL injection 75 mcg 75 mcg IV P [facility] 11/05/2013 234 prochlorperazine (COMPAZINE) injection 5 mg 5 mg IV Push 11/05/2013 2343 diphenhydrAMINE (BENADRYL) injection 25 mg 25 mg IV Push . New Prescriptions for this Encounter LAST VITALS BP: 115/59 mmHg (11/05/132230), Heart Rate (Monitored): (not recorded), Resp: ( not recorded), Temp: 97.6 F (36.4 C) (11/05/132230), Temp src: Oral (2230), SpO2: 98 % (11/05/132230) CLINICAL IMPRESSION Final diagnoses: Headache CODING Coding DISPOSITION, EDUCATION AND MEDICATION RECONCILIATION Medications reconciled. See after visit summary for patient education on discha rged patients. Did not have epidural, but headache since ectopic surgery two days ago. Had bloo d loss anemia and appears dry. Will give one liter NS, fentanyl 75 mcg, Compazin e 5 mg and Benadryl 25 mg IV Repeated once. Feeling much better. Ok to go home. documented in this encounter Plan of Treatment Not on filedocumented as of this encounter Procedures Comments Procedure Name Priority Date/Time Associated Diag nosis CBC WITH DIFFERENTIAL Stat 11/05/2013 10:54 PM CDT documented in this encounter Results * CBC WITH DIFFERENTIAL (11/05/2013 10:54 PM CDT) WBC 5.2 3.0 - 10.4 K/uL [facility] [place] RBC 2.64 (L) 3.77 - 4.97 M/uL [facility] [place] HEMOGLOBIN 8.6 (L) 11.9 - 15.0 g/dL [facility] [place] HEMATOCRIT 25.4 (L) 34.4 - 43.6 % [facility] [place] MCV 96.4 79.0 - 100.0 fL [facility] [place] MCH 32.7 28.0 - 34.0 pg [facility] [place] MCHC 34.0 31.0 - 35.0 g/dL [facility] [place] RDW 13.0 11.5 - 15.1 % [facility] [place] PLATELETS 175 148 - 408 K/uL [facility] [place] MPV 8.5 7.4 - 10.6 fL [facility] [place] NEUTROPHILS 67 43 - 73 % [facility] [place] [place] LYMPHOCYTES 25 19 - 47 % [facility] [place] MONOCYTES 6 3 - 9 % [facility] [place] EOSINOPHILS 2 0 - 6 % [facility] [place] [place] BASOPHILS 0 0 - 1 % [facility] [place] NEUTROPHIL 3.48 1.30 - 7.60 K/uL [facility] [place] LYMPHOCYTE 1.28 0.60 - 4.90 K/uL [facility] [place] MONOCYTE 0.28 0.10 - 0.90 K/uL [facility] [place] EOSINOPHIL 0.12 0.00 - 0.40 K/uL [facility] [place] BASOPHILS 0.02 0.00 - 0.10 K/uL [facility] [place] Specimen Blood Performing Organization Address City/State/Zipcode Ph one Number [facility] CLIA# [id number] [place], [place] [address] [address] LABORATORY SERVICES CLIA# [id number] [place] [address] - [address] documented in this encounter Visit Diagnoses Diagnosis Headache - Primary documented in this encounter Administered Medications Action Date Dose Rate Site Medication Order MAR Action 11/05/2013 10:53 PM CDT 25 mg diphenhydrAMINE (BENADRYL) injection 25 Push mg 25 mg, IV, ONE TIME ONLY, 1 dose, 11/05/13 at 2245, Routine 11/05/2013 11:43 PM CDT 25 mg diphenhydrAMINE (BENADRYL) injection 25 Push mg 25 mg, IV, ONE TIME ONLY, 1 dose, 11/05/13 at 2345, Routine 11/05/2013 10:52 PM CDT 75 mcg fentaNYL PF (SUBLIMAZE) 50 mcg/mL Push injection 75 mcg 75 mcg, IV, ONE TIME ONLY, 1 dose, 11/05/13 at 2245, Routine 11/05/2013 11:45 PM CDT 75 mcg fentaNYL PF (SUBLIMAZE) 50 mcg/mL Push injection 75 mcg 75 mcg, IV, ONE TIME ONLY, 1 dose, 11/05/13 at 2345, Routine 11/05/2013 10:51 PM CDT 5 mg prochlorperazine (COMPAZINE) injection 5 Push mg 5 mg, IV, ONE TIME ONLY, 1 dose, 11/05/13 at 2245, Routine 11/05/2013 11:44 PM CDT 5 mg prochlorperazine (COMPAZINE) injection 5 Push mg 5 mg, IV, ONE TIME ONLY, 1 dose, 11/05/13 at 2345, Routine PROCHLORPERAZINE EDISYLATE 10 MG/2 ML ( 5 MG/ML) INJECTION SOLUTION 1 dose, Starting 11/05/13 at 2244, Until 11/05/13 at 2251, Chinedu LEWIS: cabinet override, 11/05/2013 10:50 PM CDT 1,000 mL 2000 mL/hr sodium chloride 0.9% bolus solution Bolus 1,000 mL 1,000 mL, IV, ONE TIME ONLY, 1 dose, Tu e 11/05/13 at 2245, at 2,000 mL/hr, Administer over 30 Minutes, Routine documented in this encounter
--- OUTSIDE RECORDS SUMMARY | 2019-09-21 04:10 | XMS REPORT | Encounter Summary ---
Author Author [facility] Organization [facility] Address Unknown Phone Unavailable Care Team Providers Care Residence Life Coordinator Name Role Phone Self, Lucius Heart MD PCP Encounter Details Care Team Description Date Type Department Self, Lucius Heart MD [address] [place] [address] 09/03/2012 Abstract [facility] Primar y Care [place] [address] [place] [address] Social History Date Tobacco Use [...]
--- OUTSIDE RECORDS SUMMARY | 2019-09-21 04:10 | XMS REPORT | Encounter Summary ---
Author Author [facility] Organization [facility] Address Unknown Phone Unavailable Care Team Providers Care Scaffolder Name Role Phone Self, Lucius Heart MD PCP Encounter Details Care Team Description Date Type Department Evangelista Marcos, DO [address] [place] [address] [facility], Lab Schedule 09/17/2012 [facility] Encounter Laboratory Services [address] [phone] Social History Date Tobacco Use [...] Date End Date Medication Sig Dispensed Refills 09/05/2012 10/08/2012 amphetamine-dextroampheta Take 1 Cap by 30 Cap 0 mine SR 24 hour (ADDERALL mouth daily XR) 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 07/04/2012 08/28/2014 cetirizine (ZYRTEC) 10 mg Take 1 Tab by 30 Tab 1 Oral tablet mouth daily. documented as of this encounter Plan of Treatment Not on filedocumented as of this encounter Procedures Comments Procedure Name Priority Date/Time Associated Diag nosis HCG QUANTITATIVE, BLOOD Stat 09/17/2012 Amenor jairo 10:18 AM CDT documented in this encounter Results * HCG QUANTITATIVE, BLOOD (09/17/2012 10:18 AM CDT) HCG QUANT, LESS THAN 1 mIU/ml [facility] BLOOD Comment: LABORATORY Expected Range for non SERVICES - [place] female = 0-6 mIU/ml. [place] Weeks Post LMP Approximate HCG (Last Menstrual Period) Range (mIU/ml)* 3-4 Weeks 9 - 130 4-5 Weeks 75 - 2,600 5-6 Weeks 850 - 20,800 6-7 Weeks 4,000 - 100,200 7-12 Weeks 11,500 - 289,000 12-16 Weeks 18,300 - 137,000 16-29 Weeks 1,400 - 53,000 29-41 Weeks 940 - 60,000 *this method is calibrated against the 1st International Reference Preparation (IRP) or the equivalent 3rd International Standard (3rd IS). [place], [place] ACCT#[id number], ,,,, Specimen Blood specimen (specimen) Performing Organization Address City/State/Zipcode Ph one Number INTERFACE SYSTEM [facility] LABORATORY SERVICES CLIA# [id number] [place] [address] - [place] [address] documented in this encounter Visit Diagnoses Diagnosis Amenorrhea Absence of menstruation documented in this encounter
--- OUTSIDE RECORDS SUMMARY | 2019-09-21 04:10 | XMS REPORT | Encounter Summary ---
Author Author [facility] Organization [facility] Address Unknown Phone Unavailable Care Team Providers Care Gps Field Data Collector Name Role Phone Self, Lucius Heart MD PCP Encounter Details Care Team Description Date Type Department Evangelista Marcos, DO [address] [place] [address] [facility], Lab Schedule 09/03/2012 [facility] General Encounter Laboratory Services [address] [phone] Social History Date Tobacco Use [...] Date End Date Medication Sig Dispensed Refills 08/31/2012 09/10/2012 doxycycline hyclate Take 1 Cap by 20 Cap 0 (VIBRAMYCIN) 100 mg Oral mouth 2 times capsule daily for 10 days. 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 07/04/2012 08/28/2014 cetirizine (ZYRTEC) 10 mg Take 1 Tab by 30 Tab 1 Oral tablet mouth daily. documented as of this encounter Miscellaneous Notes * Scanned Form - Venus Morales - 09/04/2012 11:37 AM CDT Electronically signed by Interface, Minh Donovan Transcriptions Incoming at 3 11:37 AM CDT documented in this encounter Plan of Treatment Not on filedocumented as of this encounter Procedures Comments Procedure Name Priority Date/Time Associated Diag nosis HIV DETECTION W/REFLX Routine 09/03/2012 Screen f or STD (sexually CONFIRMATION 12:01 PM CDT transmitted disease ) HEPATITIS B SURFACE Routine 09/03/2012 Screen for STD (sexually ANTIGEN 12:01 PM CDT transmitted disease ) RPR Routine 09/03/2012 Screen for STD (sexually 12:01 PM CDT transmitted disease) GC/CHLAMYDIA, GENITAL Routine 09/03/2012 Screen f or STD (sexually 12:00 AM CDT transmitted disease) documented in this encounter Results * RPR (09/03/2012 12:01 PM CDT) Pathologist [facility] RPR NON-REACTIVEComment: CECIL JACOBFORMERLY [facility] LABORATORY ACCT#[id number], ,,,, [facility] [place] Specimen Blood specimen (specimen) Performing Organization Address City/State/Zipcori Ph one Number [facility] CLIA# [id number] [place], [place] [address] [address] LABORATORY SERVICES CLIA# [id number] [place] [address] - [address] * HIV ANTIBODY W/REFLX CONFIRMATION (09/03/2012 12:01 PM CDT) Pathologist [facility] HIV-1 AND 2 ABS Negative Negative [facility] Comment: LABORATORY Negative result does not rule [facility] out HIV infection. If acute [place] HIV-1 infection is suspected in a high-risk patient, submit plasma specimen for HIV-1 RNA quantification test. If this test is ordered as a follow-up test to a reactive rapid HIV antibody test result, supplemental testing by Western blot is recommended, even when this test result is negative. Testing is performed using the [employer] Anti-HIV 1+2 chemiluminescence immunoassay. Test Performed by: [address] [address] Bin Tripper Operator: Dat Lee III, M.D. [place], ,,,, Specimen Blood specimen (specimen) Performing Organization Address [facility] one [facility] LABORATORY SERVICES CLIA# [id number] TESHA GORDON [address] [address] LABORATORY SERVICES CLIA# [id number] [facility] [place] [address] - [address] * HEPATITIS B SURFACE ANTIGEN (09/03/2012 12:01 PM CDT) HEPATITIS B Negative Negative [facility] SURFACE AG Comment: LABORATORY Test Performed by: SERVICES - [facility] [address] [place] [address] Bin Tripper Operator: Dat Lee III, M.D. [place], ,,,, Specimen Blood specimen (specimen) Performing Organization Address [facility] LABORATORY SERVICES CLIA# [id number] [facility] [place] [address] [address] [address] LABORATORY SERVICES CLIA# [id number] [place] [address] * GC/CHLAMYDIA, GENITAL (09/03/2012 12:00 AM CDT) SOURCE cervical () [facility] [place] CHLAMYDIA DNA Negative Negative [facility] [place] SOURCE cervical () [facility] [place] GC DNA Negative Negative [facility] Comment: LABORATORY Test Performed by: SERVICES - [facility] [address] [place] [address] Bin Tripper Operator: Dat Lee III, M.D. [place], ,,,, Specimen Specimen from genital system (specimen) - Endocervical Performing Organization Address [facility] LABORATORY SERVICES CLIA# [id number] [place] [address] [address] LABORATORY SERVICES CLIA# [id number] [place] [address] documented in this encounter Visit Diagnoses Diagnosis Screen for STD (sexually transmitted di sease) Screening examination for venereal dise ase documented in this encounter
--- OUTSIDE RECORDS SUMMARY | 2019-09-21 04:10 | XMS REPORT | Encounter Summary ---
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 07/04/2012 09/03/2012 Ethinyl Apply 1 Patch 4 Patch 11 Estradiol-Norelgestrom to skin as (ORTHO EVRA) 150-20 directed see mcg/24 hr Transdermal administratio PTWK PATCH n instructions. 07/04/2012 08/28/2014 cetirizine (ZYRTEC) 10 mg Take 1 Tab by 30 Tab 1 Oral tablet mouth daily. documented as of this encounter Plan of Treatment Not on filedocumented as of this encounter Procedures Comments Procedure Name Priority Date/Time Associated Diag nosis XR THORACIC SPINE 3 VW Routine 07/04/2012 Flank p ain 4:05 PM ART THERAPY SPECIALIST documented in this encounter Results * XR THORACIC SPINE 3 VW (07/04/2012 4:05 PM ART THERAPY SPECIALIST) Specimen Impressions Performed At Impression: INTERFACE SYSTEM No fracture or subluxation in the thora cic spine. Narrative Performed At Thoracic spine, 3 Views INTERFACE SYSTEM History: Pain. The vertebral body height and alignment are within normal limits. No fracture or subluxation is seen. No s ignificant degenerative changes. Procedure Note Interface, [facility] Incoming Radiology Results - 07/04/2012 4:09 PM ART THERAPY SPECIALIST Thoracic spine, 3 Views History: Pain. The vertebral body height and alignment are within normal limits. No fracture or subluxation is seen. No significant degenerative changes. IMPRESSION Impression: No fracture or subluxation in the thoracic spine. Performing Organization Address City/State/Zipcode Ph one Number INTERFACE SYSTEM INTERFACE SYSTEM Refer to clinic/hospital department documented in this encounter Visit Diagnoses Diagnosis Flank pain Abdominal pain, unspecified site documented in this encounter
--- OUTSIDE RECORDS SUMMARY | 2019-09-21 04:10 | XMS REPORT | Encounter Summary ---
Author Author [facility] Organization [facility] Address Unknown Phone Unavailable Care Team Providers Care Residence Leasing Agent Name Role Phone Self, Lucius Heart MD PCP Encounter Details Care Team Description Date Type Department Evangelista Marcos, DO [address] [place] [address] [facility], Outpt Lab 10/29/2013 [facility] Outpatient Encounter Laboratory [address] [address] Social History Date Tobacco Use [...] Date End Date Medication Sig Dispensed Refills 10/18/2013 11/04/2013 progesterone micronized Take 1 Cap by 30 Cap 2 (PROMETRIUM) 200 mg mouth daily. 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 07/04/2012 08/28/2014 cetirizine (ZYRTEC) 10 mg Take 1 Tab by 30 Tab 1 Oral tablet mouth daily. documented as of this encounter Plan of Treatment Not on filedocumented as of this encounter Procedures Comments Procedure Name Priority Date/Time Associated Diag nosis HCG QUANTITATIVE, BLOOD Stat 10/29/2013 Missed 4:23 PM CDT documented in this encounter Results * HCG QUANTITATIVE, BLOOD (10/29/2013 4:23 PM CDT) HCG QUANT, 1,457.0 (H) 0.0 - 2.0 mIU/mL [facility] [place] Specimen Blood Narrative Performed At This test is intended for monitoring status only. [facility] LABOR[facility]ORY Healthy non- <6.0 mIU/mL SERVICES - FO RT Weeks post LMP HCG (mIU/mL) [place] 1.3 - 2 16 - 156* 2 - 3 101 - 4870 3 - 4 1110 - 43751 4 - 5 2560 - 85336 5 - 6 08247 - 111593 6 - 7 606535 - 264110 7 - 11 640083 - 329070 11 - 16 6140 - 221659 16 - 21 4720 - 32960 21 - 39 2700 - 79586 *Levels less than 16.0 mIU/ml should be used in conjunction with other data available to the physician and if clini john needed, followed by a second sample obtained after 48 hours. Performing Organization Address City/State/Zipcode Ph one Number [facility] CLIA# [id number] [place], [place] [address] [address] LABORATORY SERVICES CLIA# [id number] [place] [address] - [address] documented in this encounter Visit Diagnoses Diagnosis Missed documented in this encounter
--- OUTSIDE RECORDS SUMMARY | 2019-09-21 04:10 | XMS REPORT | Encounter Summary ---
Author Author [facility] Organization [facility] Address Unknown Phone Unavailable Care Team Providers Care Supervisor Sign Shop Name Role Phone Self, Lucius Heart MD PCP Encounter Details Care Team Description Date Type Department Anuja Contreras RN Missed (Primary Dx) 10/21/2013 Orders Only [facility] [address] [place] [address] Social History Date Tobacco Use [...] filedocumented as of this encounter Results * HCG QUANTITATIVE, BLOOD (10/29/2013 4:23 PM CDT) HCG QUANT, 1,457.0 (H) 0.0 - 2.0 mIU/mL [facility] - [place] Specimen Blood Narrative Performed At This test is intended for monitoring status only. [facility] LABORATORY Healthy non- <6.0 mIU/mL SERVICES - FO RT Weeks post LMP HCG (mIU/mL) [place] 1.3 - 2 16 - 156* 2 - 3 101 - 2870 3 - 4 1110 - 26538 4 - 5 9850 - 71245 5 - 6 10711 - 498862 6 - 7 396374 - 182884 7 - 11 458061 - 947190 11 - 16 7440 - 474227 16 - 21 1201 - 51241 21 - 39 2939 - 93997 *Levels less than 16.0 mIU/ml should be used in conjunction with other data available to the physician and if clini john needed, followed by a second sample obtained after 48 hours. Performing Organization Address City/State/Zipcode Ph one Number [facility] LABORATORY SERVICES CLIA# [id number] [place] [address] [address] LABORATORY SERVICES CLIA# [id number] [place] [address] - [address] documented in this encounter Visit Diagnoses Diagnosis Missed - Primary documented in this encounter
--- OUTSIDE RECORDS SUMMARY | 2019-09-21 04:10 | XMS REPORT | Encounter Summary ---
Author Author [facility] Organization [facility] Address Unknown Phone Unavailable Care Team Providers Care Assemblies And Installations Inspector Name Role Phone Self, Lucius Heart MD PCP Encounter Details Care Team Description Date Type Department ToneyLeighann Amenorrhea (Primary Dx) 09/17/2012 Orders Only [facility] [address] [place] [address] Social History Date Tobacco Use [...] CDT) HCG QUANT, LESS THAN 1 mIU/ml [facility] BLOOD Comment: LABORATORY Expected Range for non [...] the equivalent 3rd International Standard (3rd IS). [facility] CE[facility]ALL[facility] ACCT#[id number], ,,,, Specimen Blood specimen (specimen) Performing Organization Address City/State/Zipcode Ph one Number INTERFACE SYSTEM [facility] LABORATORY SERVICES CLIA# [id number] [place] [address] - [place] [address] [place] [address] documented in this encounter Visit Diagnoses Diagnosis Amenorrhea - Primary Absence of menstruation documented in this encounter
--- OUTSIDE RECORDS SUMMARY | 2019-09-21 04:10 | XMS REPORT | Encounter Summary ---
Author Author [facility] Organization 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 07/04/2012 08/28/2014 cetirizine (ZYRTEC) 10 mg Take 1 Tab by 30 Tab 1 Oral tablet mouth daily. documented as of this encounter Plan of Treatment Not on filedocumented as of this encounter Procedures Comments Procedure Name Priority Date/Time Associated Diag nosis HCG QUANTITATIVE, BLOOD Stat 10/20/2013 Amenor jairo 10:41 AM CDT HCG QUANTITATIVE, BLOOD Stat 10/18/2013 Amenor jairo 9:58 AM CDT documented in this encounter Results * HCG QUANTITATIVE, BLOOD (10/20/2013 10:41 AM CDT) HCG QUANT, 1,164.0 (H) 0.0 - 2.0 mIU/mL [facility] BLOOD LABORATORY [facility] Specimen Blood Narrative Performed At This test is intended for monitoring status only. [facility] Healthy non- <6.0 mIU/mL SERVICES - FO RT Weeks post LMP HCG (mIU/mL) [place] 1.3 - 2 16 - 156* 2 - 3 101 - 4870 3 - 4 1110 - 01174 4 - 5 2560 - 04629 5 - 6 11767 - 914754 6 - 7 066074 - 786066 7 - 11 132571 - 120783 11 - 16 6140 - 427457 16 - 21 4720 - 05822 21 - 39 2700 - 89419 *Levels less than 16.0 mIU/ml should be used in conjunction with other data available to the physician and if clini john needed, followed by a second sample obtained after 48 hours. Performing Organization Address City/State/Zipcode Ph one Number [facility] LABORATORY SERVICES CLIA# [id number] [place], [place] [address] [address] LABORATORY SERVICES CLIA# [id number] [place] [address] - [address] * HCG QUANTITATIVE, BLOOD (10/18/2013 9:58 AM CDT) HCG QUANT, 1,480.0 (H) 0.0 - 2.0 mIU/mL [facility] [employer] LABORATORY [facility] Specimen Blood Narrative Performed At This test is intended for monitoring status only. [facility] Healthy non- <6.0 mIU/mL SERVICES - FO RT Weeks post LMP HCG (mIU/mL) [place] 1.3 - 2 16 - 156* 2 - 3 101 - 4870 3 - 4 1110 - 83034 4 - 5 2560 - 66333 5 - 6 50987 - 337057 6 - 7 807224 - 593526 7 - 11 119276 - 710340 11 - 16 6140 - 228718 16 - 21 4720 - 35879 21 - 39 2700 - 21964 *Levels less than 16.0 mIU/ml should be used in conjunction with other data available to the physician and if clini john needed, followed by a second sample obtained after 48 hours. Performing Organization Address City/State/Zipcoky Ph one Number [facility] LABORATORY SERVICES CLIA# [id number] [place]ESHA [place] [address] - [place] [address] [place] [address] LABORATORY SERVICES CLIA# [id number] [place] [address] - [place] [address] [place] [address] documented in this encounter Visit Diagnoses Diagnosis Amenorrhea Absence of menstruation documented in this encounter
--- OUTSIDE RECORDS SUMMARY | 2019-09-21 04:10 | XMS REPORT | Encounter Summary ---
Author Author [facility] Organization [facility] Address Unknown Phone Unavailable Care Team Providers Care Sign Painter Apprentice Name Role Phone Self, Lucius Heart MD PCP Encounter Details Care Team Description Date Type Department Anuja Contreras RN Ectopic (Primary Dx) 10/30/2013 Orders Only [address] [address] Social History Date Tobacco Use [...] as of this encounter Visit Diagnoses Diagnosis Ectopic - Primary Unspecified ectopic without i ntrauterine documented in this encounter
--- OUTSIDE RECORDS SUMMARY | 2019-09-21 04:10 | XMS REPORT | Encounter Summary ---
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 07/04/2012 08/28/2014 cetirizine (ZYRTEC) 10 mg Take 1 Tab by 30 Tab 1 Oral tablet mouth daily. documented as of this encounter Plan of Treatment Not on filedocumented as of this encounter Visit Diagnoses Not on filedocumented in this encounter
--- OUTSIDE RECORDS SUMMARY | 2019-09-21 04:10 | XMS REPORT | Encounter Summary ---
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 07/04/2012 09/03/2012 Ethinyl Apply [...]
--- OUTSIDE RECORDS SUMMARY | 2019-09-21 04:10 | XMS REPORT | Encounter Summary ---
Author Author [facility] Organization [facility] Address Unknown Phone Unavailable Care Team Providers Care Gas Line Installer Name Role Phone Self, Lucius Heart MD PCP Reason for Visit * Reason Comments Pelvic Pain Encounter Details Care Team Description Date Type Department Evangelista Marcos, DO [address] [place] [address] Pelvic pain in female (Primary Dx); Positive test; Ectopic 10/21/2013 Office Visit [facility] [address] [place] [address] Social History Date Tobacco Use [...] - - Blood Pressure - - Pulse - - Temperature - - Respiratory Rate - - Oxygen Saturation - - Inhaled Oxygen Concentration 83.9 kg (185 lb) 10/21/2013 2:40 PM CDT Weight 157.5 cm (5' 2") 10/21/2013 2:40 PM CDT Height 33.84 10/21/2013 2:40 PM CDT Body Mass Index documented in this encounter Progress Notes * Evangelista Marcos DO - 10/21/2013 2:27 PM CDT HISTORY OF PRESENT ILLNESS Opal Benavidez, a 23 y.o. female. HPI Ms. Benavidez presents to our office for her test results after having an Ultrasound and repeat Test. She admits to continued pain in her left adnexa. REVIEW OF SYSTEMS Review of Systems No review of systems was done today. PHYSICAL EXAM LMP 09/13/2013 Physical Exam General appearance: in no distress Abdomen: Soft, lower pelvic tenderness. Bowel sounds normal. No masses, no orga nomegaly., left lower pelvic pain, especially with palpation. Neurologic: Alert and oriented X 3, normal strength and tone. Normal symmetric r eflexes. Normal coordination and gait ASSESSMENT and PLAN: ICD-9-CM ICD-10-CM 1. Pelvic pain in female 625.9 N94.9 2. Positive test V72.42 Z32.01 3. Ectopic 633.90 O00.9 Assessment: Pelvic Pain 2. Positive Test 3. Ectopic Plan: Methotrexate 50 mg/m2 x 1 dose. Repeat HCG on Monday, then again on ay. Call with problems or questions. Go to ED immediately with increase in danny n or bleeding. documented in this encounter Miscellaneous Notes * Addendum Note - Daniel Contreras RN - 10/21/2013 2:42 PM CDT Addended by: DANIEL CONTRERAS on: 10/21/2013 02:42 PM Modules accepted: Orders documented in this encounter Plan of Treatment Not on filedocumented as of this encounter Visit Diagnoses Diagnosis Pelvic pain in female - Primary Unspecified symptom associated with fem candi genital organs Positive test examination or test, positive result Ectopic Unspecified ectopic without i ntrauterine documented in this encounter Administered Medications Action Date Dose Rate Site Medication Order MAR Action 10/21/2013 4ML Right Upper Quad Gluteus Methotrexate Sodium 25 Mg/mL Injection Given Intramuscular documented in this encounter
--- OUTSIDE RECORDS SUMMARY | 2019-09-21 04:10 | XMS REPORT | Encounter Summary ---
Author Author [facility] Organization [facility] Address Unknown Phone Unavailable Care Team Providers Care Yacht Master Name Role Phone Self, Lucius Heart MD PCP Reason for Visit * Reason Comments Medication Refill Encounter Details Care Team Description Date Type Department Vera Chayagoldy Stoddard 10/08/2012 Refill [facility] Primar y Care [address] [address] Social History Date Tobacco Use [...]
--- OUTSIDE RECORDS SUMMARY | 2019-09-21 04:10 | XMS REPORT | Encounter Summary ---
Author Author [facility] Organization [facility] Address Unknown Phone Unavailable Care Team Providers Care Creative Guru Name Role Phone Self, Lucius Heart MD PCP Reason for Referral * Outpatient Services (Routine) Referred By Contact Referred To Contact Status Reason Specialty Diagnoses / Procedures Evangelista Marcos DO [address] [place] [address] Closed Diagnoses Ectopic P rocedures US OB TRANSVAGINAL Reason for Visit * Outpatient Services (Routine) Referred By Contact Referred To Contact Status Reason Specialty Diagnoses / Procedures Evangelista Marcos DO [address] [place] [address] Closed Diagnoses Ectopic P rocedures US OB TRANSVAGINAL Encounter Details Care Team Description Date Type Department Evangelista Marcos DO [address] [place] [address] 10/21/2013 [facility] F ort Encounter Steve Ultrasound [address] [place] [address] Social History Date Tobacco Use [...] mouth daily XR) 30 mg 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 07/04/2012 08/28/2014 cetirizine (ZYRTEC) 10 mg Take 1 Tab by 30 Tab 1 Oral tablet mouth daily. documented as of this encounter Plan of Treatment Not on filedocumented as of this encounter Procedures Comments Procedure Name Priority Date/Time Associated Diag nosis US OB TRANSVAGINAL Routine 10/21/2013 Ectopic pre gnancy 2:07 PM CDT documented in this encounter Results * US OB TRANSVAGINAL (10/21/2013 2:07 PM CDT) Specimen Impressions Performed At IMPRESSION: Positive test with thickening o f the endometrium INTERFACE SYSTEM without intrauterine gestation identifi ed. Question is a left adnexal mass as described concerning for ectopi c . Narrative Performed At Pelvic ultrasound INTERFACE SYSTEM INDICATION: Ectopic Transabdominal and endovaginal images w ere obtained. History of positive chest with expected of 6 weeks. The transabdominal images demonstrate n ormal size uterus. Fluid noted in the bladder. Endovaginal images demo nstrate thickening of the endometrium with echogenic endometrium a central fluid collection and a viable intrauterine gestation is not identified. Endometrium measures 1.7 cm in thickness. Arcuate c onfiguration noted. The right ovary 2.6 x 1.6 cm. The left ovary is 3.8 x 2.2 cm. Is an echogenic area adjacent to the left ova ry measuring 1.9 x 1.6 cm and this demonstrates increased vascularity on color ultrasound. There is a tiny amount of free fluid present. Procedure Note Interface, [facility] Incoming Radiology Results - 10/21/2013 2:17 PM CDT Pelvic ultrasound INDICATION: Ectopic Transabdominal and endovaginal images were obtained. History of positive chest with expected of 6 weeks. The transabdominal images demonstrate normal size uterus. Fluid noted in the bladder. Endovaginal images demonstrate thickening of the endometrium with echogenic endometrium a central fluid collection and a viable intrauterine gestation is not identified. Endometrium measures 1.7 cm in thickness. Arcuate configuration noted. The right ovary 2.6 x 1.6 cm. The left ovary is 3.8 x 2.2 cm. Is an echogenic area adjacent to the left ovary measuring 1.9 x 1.6 cm and this demonstrates increased vascularity on color ultrasound. There is a tiny amount of free fluid present. IMPRESSION IMPRESSION: Positive test with thickening of the endometrium without intrauterine gestation identified. Question is a left adnexal mass as described concerning for ectopic . Performing Organization Address City/State/Zipcode Ph one Number INTERFACE SYSTEM INTERFACE SYSTEM Refer to clinic/hospital department documented in this encounter Visit Diagnoses Diagnosis Ectopic Unspecified ectopic without i ntrauterine documented in this encounter
--- OUTSIDE RECORDS SUMMARY | 2019-09-21 04:10 | XMS REPORT | Encounter Summary ---
Author Author [facility] Organization [facility] Address Unknown Phone Unavailable Care Team Providers Care Substation Technician Name Role Phone Lucius Murry MD PCP Reason for Visit * Reason Comments Abscess Encounter Details Care Team Description Date Type Department Lucius Murry MD [address] [place] [address] Abscess of buttock, left (Primary Dx) 08/31/2012 Office Visit [facility] Primar y Care [place] [address] [place] [address] Social History Date Tobacco Use [...] Signs Reading Time Taken Comments Vital Sign 120/64 08/31/2012 2:03 PM CDT Blood Pressure - - Pulse 36.1 C (96.9 F) 08/31/2012 2:03 PM CDT Temperature - - Respiratory Rate - - Oxygen Saturation - - Inhaled Oxygen Concentration 74.6 kg (164 lb 8 oz) 08/31/2012 2:03 PM CDT Weight 156.2 cm (5' 1.5") 08/31/2012 2:03 PM CDT Height 30.58 08/31/2012 2:03 PM CDT Body Mass Index documented in this encounter Progress Notes * Lucius Murry MD - 08/31/2012 3:36 PM CDT HISTORY OF PRESENT ILLNESS Opal Benavidez, a 22 y.o. female. Abscess The history is provided by the patient. This is a new problem. The current episo de started less than one week ago. The onset was sudden. The problem occurs cont inuously. The problem has been rapidly worsening. The abscess is present on the left buttock. The problem is moderate. The abscess is characterized by redness a nd swelling. It is unknown what she was exposed to. The abscess first occurred a t home. Pertinent negatives include no fever and no vomiting. REVIEW OF SYSTEMS Review of Systems Constitutional: Negative for fever. Gastrointestinal: Negative for vomiting. PHYSICAL EXAM BP 120/64 | Temp 96.9 F (36.1 C) | Ht 5' 1.5" (1.562 m) | Wt 164 lb 8 oz (74 .617 kg) | BMI 30.58 kg/m2 Physical Exam Constitutional: She is oriented to person, place, and time. She appears well-dev eloped and well-nourished. HENT: Head: Atraumatic. Right Ear: Tympanic membrane normal. Left Ear: Tympanic membrane normal. Eyes: EOM are normal. Pupils are equal, round, and reactive to light. Neck: No thyromegaly present. Cardiovascular: Normal rate, regular rhythm, S1 normal, S2 normal and normal hea rt sounds. No murmur heard. Pulmonary/Chest: Breath sounds normal. She has no wheezes. She has no rales. Abdominal: Soft. Bowel sounds are normal. She exhibits no mass. There is no hepa tosplenomegaly. There is no tenderness. There is no guarding. Musculoskeletal: Normal range of motion. She exhibits no edema and no tenderness . Lymphadenopathy: She has no cervical adenopathy. Neurological: She is alert and oriented to person, place, and time. Skin: There is erythema (2 cm area of induration, tenderness; deep.). Psychiatric: She has a normal mood and affect. ASSESSMENT and PLAN: 1. Abscess of buttock, left (682.5) Orders Placed This Encounter doxycycline hyclate (VIBRAMYCIN) 100 mg Oral capsule HYDROcodone-acetaminophen (NORCO) 5-325 mg Oral tablet May need to be lanced, but no fluctuance currently and deep; return to clinic Mo nday; UC if needing care sooner. Plan of care reviewed with patient in detail. Discussed with the patient and all questioned fully answered. She will call me if any problems arise. documented in this encounter Plan of Treatment Not on filedocumented as of this encounter Visit Diagnoses Diagnosis Abscess of buttock, left - Primary Cellulitis and abscess of buttock documented in this encounter
--- OUTSIDE RECORDS SUMMARY | 2019-09-21 04:10 | XMS REPORT | Encounter Summary ---
Author Author [facility] Organization [facility] Address Unknown Phone Unavailable Care Team Providers Care Flask Fitter Name Role Phone Self, Lucius Heart MD PCP Reason for Visit * Reason Comments Flank Pain Left side Encounter Details Care Team Description Date Type Department Evangelista Marcos DO [address] [place] [address] Amenorrhea (Primary Dx) 10/18/2013 [facility] [address] [place] [address] Social History Date Tobacco Use [...] Signs Reading Time Taken Comments Vital Sign 112/58 10/18/2013 9:09 AM CDT Blood Pressure - - Pulse 36.7 C (98.1 F) 10/18/2013 9:09 AM CDT Temperature - - Respiratory Rate - - Oxygen Saturation - - Inhaled Oxygen Concentration 83.9 kg (185 lb) 10/18/2013 9:09 AM CDT Weight 157.5 cm (5' 2") 10/18/2013 9:09 AM CDT Height 33.84 10/18/2013 9:09 AM CDT Body Mass Index documented in this encounter Progress Notes * Evangelista Marcos DO - 10/18/2013 9:55 AM CDT HISTORY OF PRESENT ILLNESS Opal Benavidez, a 23 y.o. female. HPI Ms. Benavidez presents to our office secondary to having two home test. N ow, she is having left sided pain. Admits that she is very concerned because sh mame has had miscarriages in the past. REVIEW OF SYSTEMS Review of Systems Review of Systems - General ROS: negative for weight changes, fever Psychological ROS: negative for anxiety or depressive symptoms Endocrine ROS: negative for polyuria/polydipsia or new changes in weight Breast ROS: negative for breast lumps or pain Respiratory ROS: negative for cough, shortness of breath, or wheezing Cardiovascular ROS: negative for chest pain or dyspnea on exertion Gastrointestinal ROS: negative for reflux, abdominal pain, change in bowel habit s, or black or bloody stools Genito-Urinary ROS: negative for dysuria, trouble voiding, or hematuria Neurological ROS: negative for TIA or stroke symptoms Past Social/Family History: Denies alcohol, tobacco or illicit drugs. Admits t o paternal grandfather with cancer. PHYSICAL EXAM BP 112/58 | Temp(Src) 98.1 F (36.7 C) | Ht 5' 2" (1.575 m) | Wt 185 lb (83.9 15 kg) | BMI 33.83 kg/m2 | LMP 09/13/2013 Physical Exam General appearance: active, alert, in no distress Neurologic: Alert and oriented X 3, normal strength and tone. Normal symmetric r eflexes. Normal coordination and gait ASSESSMENT and PLAN: ICD-9-CM ICD-10-CM 1. Amenorrhea 626.0 N91.2 HCG QUANTITATIVE, BLOOD HCG QUANTITATIVE, BLOOD Assessment: Amenorrhea Plan: Quantitative HCG today, repeat in 48 hours. Prometrium 200 mg one tablet orally every night. Folic Acid 3 mg daily along with Vitamins. Call with problems or questions. documented in this encounter Plan of Treatment Not on filedocumented as of this encounter Results * HCG QUANTITATIVE, BLOOD (10/20/2013 10:41 AM CDT) HCG QUANT, 1,164.0 (H) 0.0 - 2.0 mIU/mL [facility] BLOOD LABORATORY SERVICES - [place] Specimen Blood Narrative Performed At This test is intended for monitoring status only. [facility] Healthy non- <6.0 mIU/mL SERVICES - FO RT Weeks post LMP HCG (mIU/mL) [place] 1.3 - 2 16 - 156* 2 - 3 101 - 4870 3 - 4 1110 - 58206 4 - 5 2560 - 86074 5 - 6 85592 - 050089 6 - 7 892590 - 360783 7 - 11 546463 - 884375 11 - 16 6140 - 086451 16 - 21 4720 - 57194 21 - 39 2700 - [address]696 *Levels less than 16.0 mIU/ml should be used in conjunction with other data available to the physician and if clini john needed, followed by a second sample obtained after 48 hours. Performing Organization Address City/State/Zipcode Ph one Number [facility] CLIA# [id number] [place], [place] [address] [address] CLIA# [id number] [place] [address] - [address] * HCG QUANTITATIVE, BLOOD (10/18/2013 9:58 AM CDT) [facility] HCG QUANT, 1,480.0 (H) 0.0 - 2.0 mIU/mL [facility] [employer] [facility] Specimen Blood Narrative Performed At This test is intended for monitoring status only. [facility] Healthy non- <6.0 mIU/mL SERVICES - FO RT Weeks post LMP HCG (mIU/mL) [place] 1.3 - 2 16 - 156* 2 - 3 101 - 4870 3 - 4 1110 - 91162 4 - 5 2560 - 03473 5 - 6 72817 - 030737 6 - 7 664097 - 929802 7 - 11 987099 - 026249 11 - 16 6140 - 994213 16 - 21 4720 - 67696 21 - 39 2700 - 05463 *Levels less than 16.0 mIU/ml should be used in conjunction with other data available to the physician and if clini john needed, followed by a second sample obtained after 48 hours. Performing Organization Address City/State/Zipcoal Ph one Number [facility] LABORATORY SERVICES CLIA# [id number] [place] [address] - [address] LABORATORY SERVICES CLIA# [id number] [place] [address] - [address] documented in this encounter Visit Diagnoses Diagnosis Amenorrhea - Primary Absence of menstruation documented in this encounter
--- OUTSIDE RECORDS SUMMARY | 2019-09-21 04:10 | XMS REPORT | Encounter Summary ---
Author Author [facility] Organization [facility] Address Unknown Phone Unavailable Care Team Providers Care Professor Of Biological Sciences Name Role Phone Self, Lucius Heart MD PCP Reason for Visit * Reason Comments Medication Refill Encounter Details Care Team Description Date Type Department Anuja Contreras RN 10/18/[address] [address] Social History Date Tobacco [...]
--- OUTSIDE RECORDS SUMMARY | 2019-09-21 04:10 | XMS REPORT | Encounter Summary ---
Author Author [facility] Organization [facility] Address Unknown Phone Unavailable Care Team Providers Care Wrapper Stemmer Hand Name Role Phone Self, Lucius Heart MD PCP Reason for Visit * Reason Comments Medication Refill Encounter Details Care Team Description Date Type Department Self, Lucius Heart MD [address] [place] [address] 08/06/2012 Refill [facility] Primar y Care [place] [address] [place] [address] Social History Date Tobacco Use [...]
--- OUTSIDE RECORDS SUMMARY | 2019-09-21 04:10 | XMS REPORT | Encounter Summary ---
Author Author [facility] Organization [facility] Address Unknown Phone Unavailable Care Team Providers Care Recreation Superintendent Name Role Phone Lucius Murry MD PCP Reason for Visit * Reason Comments Allergic Reaction allergic reaction to variou s foods Back Pain from DNC Medication Refill adderall Irregular Menses requesting BC Encounter Details Care Team Description Date Type Department Lucius Murry MD [address] [place] [address] Flank pain (Primary Dx); ADD (attention deficit disorder); Contraceptive management; Obesity; Multiple food allergies 07/04/2012 Office Visit [facility] [address] [place] [address] Social History Date Tobacco Use [...] Signs Reading Time Taken Comments Vital Sign 116/70 07/04/2012 2:54 PM SHELLFISH PROCESSING MACHINE TENDER Blood Pressure - - Pulse - - Temperature - - Respiratory Rate - - Oxygen Saturation - - Inhaled Oxygen Concentration 82.1 kg (181 lb) 07/04/2012 2:54 PM SHELLFISH PROCESSING MACHINE TENDER Weight 154.9 cm (5' 1") 07/04/2012 2:54 PM SHELLFISH PROCESSING MACHINE TENDER Height 34.2 07/04/2012 2:54 PM SHELLFISH PROCESSING MACHINE TENDER Body Mass Index documented in this encounter Progress Notes * Lucius Murry MD - 07/05/2012 7:50 AM SHELLFISH PROCESSING MACHINE TENDER HISTORY OF PRESENT ILLNESS Opal Benavidez, a 22 y.o. female. Allergic Reaction This is a recurrent problem. The current episode started more than 1 week ago. T he problem occurs rarely. The problem has been resolved. Pertinent negatives inc lude no abdominal pain. Associated symptoms comments: Tongue swelling, difficult y breathing; on another occasion, severe hives.. The symptoms are aggravated by nothing. Relieved by: benedryl. Back Pain This is a new problem. Episode onset: about two months, since miscarriage. The p roblem occurs daily. The problem has not changed since onset.The pain is associa romero with no known injury. The pain is present in the thoracic spine. Radiates to : right flank. The pain is moderate. Exacerbated by: standing for two hours. Per tinent negatives include no fever, no abdominal pain and no leg pain. Treatments tried: sitting. The treatment provided significant relief. Chief Complaint Patient presents with Allergic Reaction allergic reaction to various foods Back Pain from C Medication Refill adderall Irregular Menses requesting REVIEW OF SYSTEMS Review of Systems Constitutional: Negative for fever. Gastrointestinal: Negative for abdominal pain. Musculoskeletal: Positive for back pain. PHYSICAL EXAM BP 116/70 | Ht 5' 1" (1.549 m) | Wt 181 lb (82.101 kg) | BMI 34.20 kg/m2 Physical Exam Constitutional: She is oriented [...] oriented to person, place, and time. Skin: No rash noted. Psychiatric: She has a normal mood and affect. ASSESSMENT and PLAN: 1. Flank pain (789.00) XR THORACIC SPINE 3 VW 2. ADD (attention deficit disorder) (314.00) 3. Contraceptive management (V25.9) 4. Obesity (278.00) 5. Multiple food allergies (995.7) Orders Placed This Encounter XR THORACIC SPINE 3 VW amphetamine-dextroamphetamine SR 24 hour (ADDERALL XR) 30 mg Oral capsule Ethinyl Estradiol-Norelgestrom (ORTHO EVRA) 150-20 mcg/24 hr Transdermal PTW K PATCH cetirizine (ZYRTEC) 10 mg Oral tablet EPINEPHrine (EPIPEN) 0.3 mg/0.3 mL IM PnIj Suspecting possible thoracic lesion with radiculopathy; xrays ordered. Will revi ew and make appropriate recommendations. Discussed options for control; jeronimo calvillo has a divorce pending; she opts for patches. Plan of care reviewed with yina calvillo in detail. Also discussed food reactions and prescrbed epipen for severe air way reaction. Plan of care reviewed with patient in detail. Continue current car e with adderal for ADD. Discussed with the patient and all questioned fully ans wered. She will call me if any problems arise. LFISH PROCESSING MACHINE TENDER documented in this encounter Plan of Treatment Not on filedocumented as of this encounter Results * XR THORACIC SPINE 3 VW (07/04/2012 4:05 PM SHELLFISH PROCESSING MACHINE TENDER) Specimen Impressions Performed At Impression: INTERFACE SYSTEM No fracture or subluxation in the thora cic spine. Narrative Performed At Thoracic spine, 3 Views INTERFACE SYSTEM History: Pain. The vertebral body height and alignment are within normal limits. No fracture or subluxation is seen. No s ignificant degenerative changes. Procedure Note Jeanette [facility] [place] Incoming Radiology Results - 07/04/2012 4:09 PM SHELLFISH PROCESSING MACHINE TENDER Thoracic spine, 3 Views History: Pain. The vertebral body height and alignment are within normal limits. No fracture or subluxation is seen. No significant degenerative changes. IMPRESSION Impression: No fracture or subluxation in the thoracic spine. Performing Organization Address City/State/Zipcode Ph one Number INTERFACE SYSTEM INTERFACE SYSTEM Refer to clinic/hospital department documented in this encounter Visit Diagnoses Diagnosis Flank pain - Primary Abdominal pain, unspecified site ADD (attention deficit disorder) Attention deficit disorder without ment ion of hyperactivity Contraceptive management Unspecified contraceptive management Obesity Obesity, unspecified Multiple food allergies Other adverse food reactions, not elsew here classified documented in this encounter
--- OUTSIDE RECORDS SUMMARY | 2019-09-21 04:10 | XMS REPORT | Encounter Summary ---
Author Author [facility] Organization [facility] Address Unknown Phone Unavailable Care Team Providers Care Industrial Gas Production Operator Name Role Phone Self, Lucius Heart MD PCP Reason for Referral * Outpatient Services (Routine) Referred By Contact Referred To Contact Status Reason Specialty Diagnoses / Procedures Evangelista Marcos, DO [address] [place] [address] Closed Diagnoses Ectopic P rocedures US OB TRANSVAGINAL Encounter Details Care Team Description Date Type Department Anuja Contreras RN Ectopic (Primary Dx) 10/21/2013 Orders Only [facility] [address] [place] [address] Social History Date Tobacco Use [...] filedocumented as of this encounter Results * US OB TRANSVAGINAL [...] of free fluid present. Procedure Note Interface, [facility] [place] Radiology Results - 10/21/2013 2:17 [...] in this encounter Visit Diagnoses Diagnosis Ectopic - Primary Unspecified ectopic without i ntrauterine documented in this encounter
--- OUTSIDE RECORDS SUMMARY | 2019-09-21 04:10 | XMS REPORT | Encounter Summary ---
Author Author [facility] Organization [facility] Address Unknown Phone Unavailable Care Team Providers Care Nurses' Registry Director Name Role Phone Self, Lucius Heart MD PCP Reason for Visit * Reason Comments Medication Refill Encounter Details Care Team Description Date Type Department Self, Lucius Heart MD [address] [place] [address] 09/05/2012 Refill [facility] Primar y Care [place] [address] [place] [address] Social History Date Tobacco Use [...]
--- OUTSIDE RECORDS SUMMARY | 2019-09-21 04:10 | XMS REPORT | Encounter Summary ---
Author Author [facility] Organization [facility] Address Unknown Phone Unavailable Care Team Providers Care Adzing And Boring Machine Operator Name Role Phone Self, Lucius Heart MD PCP Reason for Visit * Reason Comments Well Woman Exam Encounter Details Care Team Description Date Type Department Evangelista Marcos, DO [address] [place] [address] Well woman exam with routine gynecologic al exam (Primary Dx); Screen for STD (sexually transmitted disease); Irregular menses 09/03/2012 Office Visit [facility] [place] [address] [place] [address] Social History Date Tobacco Use [...] Signs Reading Time Taken Comments Vital Sign 112/60 09/03/2012 9:04 AM CDT Blood Pressure - - Pulse 36.8 C (98.3 F) 09/03/2012 9:04 AM CDT Temperature - - Respiratory Rate - - Oxygen Saturation - - Inhaled Oxygen Concentration 73.9 kg (163 lb) 09/03/2012 9:04 AM CDT Weight 154.9 cm (5' 1") 09/03/2012 9:04 AM CDT Height 30.8 09/03/2012 9:04 AM CDT Body Mass Index documented in this encounter Progress Notes * Evangelista Marcos, - 09/03/2012 9:45 AM CDT HISTORY OF PRESENT ILLNESS Opal Benavidez, a 22 y.o. female. HPI Ms. Benavidez presents to our office for her annual well woman examination. She has questions about bleeding after sexual intercourse. Admits to having a new part ner, whom she states is "very large". REVIEW OF SYSTEMS Review of Systems Review of Systems - General ROS: negative for weight changes, fever Psychological ROS: negative for anxiety or depressive symptoms Breast ROS: negative for breast lumps or [...] TIA or stroke symptoms Past Social/Family History: Admits to smoking 1 ppd. Denies tobacco or illicit drugs. She admits that paternal grandfather had cancer. PHYSICAL EXAM BP 112/60 | Temp 98.3 F (36.8 C) | Ht 5' 1" (1.549 m) | Wt 163 lb (73.936 kg ) | BMI 30.80 kg/m2 | LMP 08/15/2012 Physical Exam General appearance: active, alert, in no distress Head: atraumatic, Normocephalic, without obvious abnormality Eyes: conjunctivae/corneas clear. PERRL, EOM's intact. Ears: normal TM's and external ear canals AU Nose: Nares normal. Septum midline. Mucosa normal. No drainage or sinus tenderne ss. Throat: Lips, mucosa (moist), and tongue normal. Teeth and gums normal Neck: supple, symmetrical, trachea midline, no adenopathy and thyroid: not enlar ged, symmetric, no tenderness/mass/nodules Lungs: clear to auscultation bilaterally, normal respiratory effort Breasts: normal appearance, no masses or tenderness, No nipple retraction or dim pling, No nipple discharge or bleeding, No axillary or supraclavicular adenopath y Heart: normal rate, regular rhythm, normal S1, S2, no murmurs, rubs, clicks or g allops Abdomen: Soft, non-tender. Bowel sounds normal. No masses, no organomegaly. Pelvic: External genitalia normal, Vagina normal without discharge, cervix fabrizio l in appearance, no CMT, uterus normal size, shape, and consistency, no adnexal masses or tenderness, rectovaginal septum normal Extremities: extremities normal, atraumatic, no cyanosis or edema, intact distal pulses, moves all extremities equally, no edema, redness or tenderness in the c badillo or thighs, normal strength, normal tone Neurologic: Alert and oriented X 3, normal strength and tone. Normal symmetric r eflexes. Normal coordination and gait ASSESSMENT and PLAN: 1. Well woman exam with routine gynecological exam (V72.31) CERV/VAG CYTOPATH, SUREPATH W/RFLX HPV, SC HANDLG&/OR CONVEY OF SPEC FOR TR OFFICE TO LAB Assessment: Annual Well Woman Examination 2. Bleeding after Sexual Sonterra Plan: Pap Smear, breast examination, full body physical. We will contact Ms. Brannon yu with her test results once we obtain them. We had a lengthy discussion con cerning aggressive sexual behavior and deep thrusting/penetraton. Also, we disc ussed modified positioning where she can control the depth of penetration. documented in this encounter Miscellaneous Notes * Addendum Note - Evangelista Marcos DO - 09/03/2012 11:48 AM CDT Addended by: EVANGELISTA MARCOS on: 09/03/2012 11:48 AM Modules accepted: Orders * Addendum Note - Leighann Mitchell - 09/03/2012 11:40 AM CDT Addended by: LEIGHANN MITCHELL on: 09/03/2012 11:40 AM Modules accepted: Orders documented in this encounter Plan of Treatment Not on filedocumented as of this encounter Procedures Comments Procedure Name Priority Date/Time Associated Diag nosis CERV/VAG CYTOPATH, Routine 09/04/2012 Well woman exam with SUREPATH W/RFLX HPV 11:27 AM CDT routine gynecolog ical exam POC VAGINAL WET PREP Routine 09/03/2012 Screen fo r STD (sexually 11:30 AM CDT transmitted disease) POC JEANNE PREP Routine 09/03/2012 Screen for STD (sexually (SKIN,HAIR,NAILS) 11:30 AM CDT transmitted disease ) documented in this encounter Results * CERV/VAG CYTOPATH, SUREPATH W/RFLX HPV (09/04/2012 11:27 AM CDT) CERVICAL OR Name: OPAL BENAVIDEZ [place] VAGINAL : PATHOLOGY CYTOPATH PAP 90 Location: [facility] OB CONSUL SARAH SABILLON SMEAR Sex: F Unit#: [id number] Room/Bed: Ordering Physician: Evangelista Marcos D.O. RECD: 09/04/12 PROCEDURE DATE: 09/03/12 [facility] DR: Evangelista Marcos D.O. [facility] DR: PROCEDURES: . LOCATION: [facility] Specimen Type: Liquid based cytology. Specimen Source: Cervical/endocervical. Pertinent History: Healthy. Onset of LMP: 08/15/12. Date of Last Pap: Information not provided. Results of Previous Pap: Information not provided. Risk Factors for Cervical/Endocervical Cancer: Information not provided. INTERPRETATION/RESULTS NEGATIVE FOR INTRAEPITHELIAL LESION OR MALIGNANCY. Hormonal Evaluation: Moderate estrogen effect is present. Specimen Adequacy: Satisfactory for evaluation. Endocervical/transformation zone component is present. Signed (electronic signature) THELMA Pérez HI [facility]P 09/04/12 1514 END OF REPORT Comment: , ,,,, Specimen Endocervical Performing Organization Address City/State/Zipcode Ph one Number [facility] CLIA# [id number] [place], [place] [address] - [address] PATHOLOGY CLIA# [id number] [place], [place] [address] [facility], SARAH [address] [place] [address] * RPR (09/03/2012 12:01 PM CDT) Pathologist [facility] RPR NON-REACTIVEComment: [facility] ACCT#[id number], ,,,, SERVICES [facility] Specimen Blood specimen (specimen) Performing Organization Address [facility]/Counts Include [address] [facility] one [facility] CLIA# [id number] [place] [address] [address] LABORATORY SERVICES CLIA# [id number] [place] [address] * HIV ANTIBODY W/REFLX CONFIRMATION (09/03/2012 12:01 PM CDT) [facility] HIV-1 AND 2 ABS Negative Negative [facility] Comment: LABORATORY Negative result does not rule [facility] out HIV infection. If acute [place] HIV-1 infection is suspected in a high-risk patient, submit plasma specimen for HIV-1 RNA quantification test. If this test is ordered as a follow-up test to a reactive rapid HIV antibody test result, supplemental testing by Western blot is recommended, even when this test result is negative. Testing is performed using the [employer] Anti-HIV 1+2 chemiluminescence immunoassay. Test Performed by: [place] [address] Reservoir Engineering Consultant: Dat Lee III, M.D. [place], ,,,, Specimen Blood specimen (specimen) Performing Organization Address [facility]/Counts Include [address] [facility] one [facility]ORY SERVICES CLIA# [id number] [place] [address] [address] LABORATORY SERVICES CLIA# [id number] [place] [address] * HEPATITIS B SURFACE ANTIGEN (09/03/2012 12:01 PM CDT) [facility] HEPATITIS B Negative Negative [facility] Comment: LABORATORY Test Performed by: [address] [address] Reservoir [employer] Consultant: Dat Lee III, M.D. [place], ,,,, Specimen Blood specimen (specimen) Performing Organization Address [facility] Ph one Number [facility] CLIA# [id number] [place] [address] [address] LABORATORY SERVICES CLIA# [id number] [place] [address] * POC VAGINAL WET PREP (09/03/2012 11:30 AM CDT) WET WBCS Negative WET RBCS Negative WET YEAST Negative WET TRICHOMONAS Negative WET CLUE CELLS Negative Specimen Vaginal * POC JEANNE,PREP (09/03/2012 11:30 AM CDT) JEANNE POC Negative POS YEAST/FUNGAL Negative ELEMENT, JEANNE POC AMINE ODOR, JEANNE Negative POC Specimen Specimen of unknown material (specimen) * GC/CHLAMYDIA, GENITAL (09/03/2012 12:00 AM CDT) SOURCE cervical () [facility] [place] CHLAMYDIA DNA Negative Negative [facility] [place] SOURCE cervical () [facility] [place] GC DNA Negative Negative [facility] Comment: LABORATORY Test Performed by: SERVICES - [facility] [place] [address] Reservoir Engineering Consultant: Dat Lee III, M.D. [place], ,,,, Specimen Specimen from genital system (specimen) - Endocervical Performing Organization Address City/[facility] Ph one Number [facility] CLIA# [id number] [place], [place] [address] [address] LABORATORY SERVICES CLIA# [id number] [place] [address] - [address] documented in this encounter Visit Diagnoses Diagnosis Well woman exam with routine gynecologi jeni exam - Primary Routine gynecological examination Screen for STD (sexually transmitted di sease) Screening examination for venereal dise ase Irregular menses Irregular menstrual cycle documented in this encounter
--- OUTSIDE RECORDS SUMMARY | 2019-09-21 04:11 | XMS REPORT | Encounter Summary ---
Author Author [facility] Organization [facility] Address Unknown Phone Unavailable Care Team Providers Care Bridge Construction Inspector Name Role Phone Self, Lucius Heart MD PCP Reason for Visit * Reason Comments Vaginal Problem strong odor and discharge d&c done 2 1/2 weeks has had intercourse Encounter Details Care Team Description Date Type Department Evangelista Marcos DO [address] [place] [address] Vaginal odor; NSV (nonspecific vaginitis) 05/29/[address] [facility] [address] [place] [address] Social History Date Tobacco Use Types Packs/Day Years Used Current Every Day Smoker Cigarettes 1 5 Drinks/Week oz/Week Comments Alcohol Use drinks on weekends No Sex Assigned at Date Recorded Not on file Industry Job Start Date Occupation Not on file Not on file Not on file Travel End Travel History Travel Start No recent travel history available. documented as of this encounter Last Filed Vital Signs Reading Time Taken Comments Vital Sign 120/60 05/29/2012 4:[address] [employer] [employer] Blood Pressure - - Pulse 36.9 C (98.4 F) 05/29/2012 4:[address] [employer] Temperature - - Respiratory Rate - - Oxygen Saturation - - Inhaled Oxygen Concentration 88.9 kg (196 lb) 05/29/2012 4:[address] [employer] [employer] Weight 154.9 cm (5' 1") 05/29/2012 4:[address] [employer] Height 37.03 05/29/2012 4:[address] [employer] Body Mass Index documented in this encounter Progress Notes * Evangelista Marcos DO - 05/29/2012 4:[address] [employer] HISTORY OF PRESENT ILLNESS Opal Benavidez, a 22 y.o. female. HPI Ms. Benavidez presents to our office for vaginal odor. She states that she been hav ing real bad odor since Monday. Readily admits to sexual intercourse all weeken d-despite having surgery just over one week ago. REVIEW OF SYSTEMS Review of Systems Review [...] negative for TIA or stroke symptoms Past Social History: Admits to smoking 1 ppd. Denies alcohol or illicit drugs. PHYSICAL EXAM BP 120/60 | Temp 98.4 F (36.9 C) | Ht 5' 1" (1.549 m) | Wt 196 lb (88.905 kg ) | BMI 37.03 kg/m2 | LMP 05/12/2012 Physical Exam General appearance: active, alert, in no distress Pelvic: External genitalia normal, Vagina normal without discharge, cervix fabrizio l in appearance, no CMT, uterus normal size, shape, and consistency, no adnexal masses or tenderness, rectovaginal septum normal, black residue posterior to cer vix (suspected to be Monsel's solution from surgery. Neurologic: Alert and oriented X 3, normal strength and tone. Normal symmetric r eflexes. Normal coordination and gait ASSESSMENT and PLAN: 1. Vaginal odor (625.9) 2. NSV (nonspecific vaginitis) (616.10) clindamycin HCl (CLEOCIN) 300 mg Oral C ap Assessment : Vaginal Odor 2. Nonspecific Vaginitis Plan: Cleocin 300 mg one tablet orally every 6 hours for 10 days. Call with pr oblems or questions. [employer] documented in this encounter Plan of Treatment Not on filedocumented as of this encounter Visit Diagnoses Diagnosis Vaginal odor Unspecified symptom associated with fem candi genital organs NSV (nonspecific vaginitis) Vaginitis and vulvovaginitis, unspecifi ed documented in this encounter
--- OUTSIDE RECORDS SUMMARY | 2019-09-21 04:11 | XMS REPORT | Encounter Summary ---
Author Author [facility] Organization [facility] Address Unknown Phone Unavailable Care Team Providers Care Field Specialist Name Role Phone Self, Lucius Heart MD PCP Reason for Visit * Reason Comments Follow Up f/u sab Encounter Details Care Team Description Date Type Department Evangelista Marcos, DO [address] [place] [address] Incomplete (Primary Dx) 04/10/2012 Office Visit [facility] [address] [place] [address] Social History Date Tobacco Use Types Packs/Day Years Used Quit: 04/06/2011 Former Smoker Cigarettes 0.25 5 Drinks/Week oz/Week Comments Alcohol Use drinks on weekends No Sex Assigned at Date Recorded Not on file Industry Job Start Date Occupation Not on file Not on file Not on file Travel End Travel History Travel Start No recent travel history available. documented as of this encounter Last Filed Vital Signs Reading Time Taken Comments Vital Sign 102/60 04/10/2012 9:47 AM TRAVEL ATTENDANTS Blood Pressure - - Pulse 36.9 C (98.5 F) 04/10/2012 9:47 AM TRAVEL ATTENDANTS Temperature - - Respiratory Rate - - Oxygen Saturation - - Inhaled Oxygen Concentration 93.4 kg (206 lb) 04/10/2012 9:47 AM TRAVEL ATTENDANTS Weight - - Height 38.92 04/08/2012 5:43 PM TRAVEL ATTENDANTS Body Mass Index documented in this encounter Progress Notes * Evangelista Marcos DO - 04/10/2012 2:16 PM TRAVEL ATTENDANTS HISTORY OF PRESENT ILLNESS Opal Judie Benavidez, a 21 y.o. female. HPI Ms. Benavidez had presented to our office for a new obstetrical visit, but her HCG v alues have dropped significantly since her first draw. I think that Ms. Benavidez i s having a miscarriage. She admits to cramping. REVIEW OF SYSTEMS Review of Systems No review of systems was done today. PHYSICAL EXAM BP 102/60 | Temp 98.5 F (36.9 C) | Wt 206 lb (93.441 kg) | LMP 02/20/2012 | ? Unknown Physical Exam General appearance: active, alert, in no distress Neurologic: Alert and oriented X 3, normal strength and tone. Normal symmetric r eflexes. Normal coordination and gait ASSESSMENT and PLAN: 1. Incomplete (637.91) acetaminophen-codeine (TYLENOL-CODEINE #3) 300- 30 mg Oral tablet Assessment: Incomplete Plan: Quantitative HCG in one week. Tylenol #3 one tablet orally every 4 hours (#30). I will do a hysteroscopy once her numbers are normal, then restart Clom id. EL ATTENDANTS documented in this encounter Plan of Treatment Not on filedocumented as of this encounter Visit Diagnoses Diagnosis Incomplete - Primary Legally unspecified , incomplet e, without mention of complication documented in this encounter"
--- OUTSIDE RECORDS SUMMARY | 2019-09-21 04:11 | XMS REPORT | Encounter Summary ---
Author Author [facility] Organization [facility] Address Unknown Phone Unavailable Care Team Providers Care Curbing Stonecutter Name Role Phone Self, Lucius Heart MD PCP Reason for Visit * Reason Comments Flank Pain Back Pain starts in back and around t o flank Encounter Details Care Team Description Date Type Department WalkerMatthew montano MD NO ADDRESS ON FILE Low back pain; examination or test, positive result 04/04/2012 Emergency [facility] Emergency Department [address] [id number] Social History Date Tobacco Use Types Packs/Day [...] Signs Reading Time Taken Comments Vital Sign 138/60 04/04/2012 4:54 PM BUSINESS CHANGE MANAGER Blood Pressure 68 04/04/2012 4:54 PM BUSINESS CHANGE MANAGER Pulse 36.3 C (97.4 F) 04/04/2012 4:54 PM BUSINESS CHANGE MANAGER Temperature 16 04/04/2012 4:54 PM BUSINESS CHANGE MANAGER Respiratory Rate 100% 04/04/2012 4:54 PM BUSINESS CHANGE MANAGER Oxygen Saturation - - Inhaled Oxygen Concentration 86.2 kg (190 lb) 04/04/2012 4:54 PM BUSINESS CHANGE MANAGER Weight 154.9 cm (5' 1") 04/04/2012 4:54 PM BUSINESS CHANGE MANAGER Height 35.9 04/04/2012 4:54 PM BUSINESS CHANGE MANAGER Body Mass Index documented in this encounter Discharge Summaries * Aok Carmen, [facility] - 04/05/2012 1:15 PM BUSINESS CHANGE MANAGER Electronically signed by Jeanette, Minh Donovan Transcriptions Incoming at 2 1:15 PM BUSINESS CHANGE MANAGER documented in this encounter Discharge Instructions * Instructions* Matthew Walker MD - 04/04/2012 Home with Tylenol #3 one every four hours as needed for low back pain that appe ars to be musculoskeletal. If a significant change in condition occurs see Dr Se castillo or return to ER. documented in this encounter Medications at Time of Discharge Start Date End Date Medication Sig Dispensed Refills 04/04/2012 05/15/2012 acetaminophen-codeine Take 1 Tab by 20 Tab 0 (TYLENOL #3) 300-30 mg mouth every 4 Oral tablet hours as needed for Pain. 03/26/2012 05/15/2012 progesterone micronized Take 1 Cap by 30 Cap 2 (PROMETRIUM) 200 mg Oral mouth daily. Cap 03/02/2012 05/15/2012 clomiPHENE citrate Take 1 Tab by 30 Tab 1 (CLOMID) 50 mg Oral mouth daily. tabletIndications: Take one Anovulation tablet orally for five days starting on day 6 of menstrual cycle. Then, increase sexual activity 8 days after last pill. 10/20/2010 05/29/2012 amphetamine-dextroampheta Take 1 Cap by 30 Cap 0 mine SR 24 hour (ADDERALL mouth daily XR) 30 mg Oral capsule revenue inspector for 30 days. documented as of this encounter ED Notes * Matthew Walker MD - 04/04/2012 5:00 PM BUSINESS CHANGE MANAGER HISTORY OF PRESENT ILLNESS Opal Benavidez, a 21 y.o. female presents to the ED with a Chief Complaint of Flank Pain and Back Pain Patient is a 21 y.o. female presenting with flank pain and back pain. The histor y is provided by the patient. Flank Pain The primary symptoms of the illness do not include abdominal pain, fever, shortn ess of breath, nausea, vomiting, dysuria or vaginal bleeding. Primary symptoms c omment: left low back pain radiates to front The current episode started yesterd ay. The onset of the illness was gradual. The problem has not changed since onse t. The patient states that she believes she is currently (LMP mid February) . The patient has not had a change in bowel habit. Additional symptoms associate d with the illness include back pain. Symptoms associated with the illness do no t include chills, diaphoresis, constipation, urgency or hematuria. Back Pain Pertinent negatives include no fever, no abdominal pain and no dysuria. REVIEW OF SYSTEMS Review of Systems Constitutional: Negative for fever, chills and diaphoresis. Respiratory: Negative for shortness of breath. Gastrointestinal: Negative for nausea, vomiting, abdominal pain and constipation . Genitourinary: Positive for flank pain. Negative for dysuria, urgency, hematuria and vaginal bleeding. Musculoskeletal: Positive for back pain. PAST MEDICAL HISTORY REVIEWED Past Medical History Diagnosis Date ADD (attention deficit disorder with hyperactivity) Obesity (BMI 30.0-39.9) 2008 Depression cymbalta Past Surgical History Procedure Date Hx section 12/2005 Arrest of dilation @ 3 cm. Delivered in [place], [place] (rqt) Hx gastric bypass 01/11/12 gastric sleeve Family History Problem Relation Age of Onset Cancer Paternal Grandfather Social History Other Topics Concern Not on file History Social History Main Topics Smoking status: Former Smoker -- 0.2 packs/day for 5 years Types: Cigarettes Quit date: 04/06/2011 Smokeless tobacco: Not on file Alcohol Use: No drinks on weekends Drug Use: No Sexually Active: Yes -- Male partner(s) Control/ Protection: None Patient Active Problem List Diagnoses Date Noted Encounter to discuss test results 03/02/2012 Incomplete 06/13/2011 Anovulation 11/29/2010 ADD (attention deficit disorder) 08/06/2010 Obesity (BMI 30.0-39.9) ALLERGIES Sulfa(sulfonamide antibiotics) HOME MEDICATIONS Patient's Home Medications New Prescriptions for this Encounter ACETAMINOPHEN-CODEINE (TYLENOL #3) 300-30 MG ORAL TABLET Take 1 Tab by mouth every 4 hours as needed for Pain. Current Home Medications CLOMIPHENE CITRATE (CLOMID) 50 MG ORAL TABLET Take 1 Tab by mouth daily. Amilcar e one tablet orally for five days starting on day 6 of menstrual cycle. Then, i ncrease sexual activity 8 days after last pill. FLUTICASONE (FLONASE) 50 MCG/SPRAY BOTH NOSTRIL SPSN Administer 2 Sprays in each nostril daily. LORATADINE (CLARITIN) 10 MG ORAL TABLET Take 1 Tab by mouth daily. OMEPRAZOLE (PRILOSEC) 40 MG ORAL CPDR Take 1 Cap by mouth daily. PROGESTERONE MICRONIZED (PROMETRIUM) 200 MG ORAL CAP Take 1 Cap by mouth mohan sheehan. Medications Modified during this Encounter Medications Discontinued during this Encounter PHYSICAL EXAM Initial Vitals BP 04/04/12 1654 138/60 mmHg Pulse 04/04/12 1654 68 Resp 04/04/12 1654 16 Temp 04/04/12 1654 97.4 F (36.3 C) Temp src 04/04/12 1654 Oral SpO2 04/04/12 1654 100 % Physical Exam Cardiovascular: Normal rate and normal heart sounds. Pulmonary/Chest: Effort normal and breath sounds normal. Abdominal: Soft. There is tenderness (mildly tender both right and left lower ab d). Musculoskeletal: Back: DIAGNOSTICS LAB: Results for orders placed during the hospital encounter of 04/04/12 ([facility] hour(s)) URINALYSIS Component Value Range GLUCOSE UA Negative Negative mg/dl BILIRUBIN UA Negative Negative KETONES UA Trace (*) Negative mg/dl SPECIFIC GRAVITY UA 1.023 1.002 - 1.030 PH UA 6.0 PROTEIN UA 50 (*) Negative mg/dl UROBILINOGEN UA 2.0 (*) 0.2 - 1.0 EU/dl NITRITE UA Negative Negative BLOOD UA Negative Negative LEUKOCYTE ESTERASE UA Trace (*) Negative COLOR UA Yellow CLARITY UA Hazy WBC UA 2-5 0 - 5 /HPF RBC UA 0-2 0 - 5 /HPF BACTERIA UA Rare Negative /HPF MUCOUS, URINE Heavy EPITHELIAL CELLS, URINE 2+ squamous HYALINE CAST 5-10 Negative /LPF CA OXALATE CRYSTAL 2+ Negative /HPF HCG QUANTITATIVE, BLOOD Component Value Range HCG QUANT, BLOOD 1913 RADIOLOGY: EKG: PROCEDURES Procedures REEVALUATION MEDICAL DECISION MAKING AND PLAN OF CARE . New Prescriptions for this Encounter ACETAMINOPHEN-CODEINE (TYLENOL #3) 300-30 MG ORAL TABLET Take 1 Tab by mouth every 4 hours as needed for Pain. Last vitals BP 138/60 | Pulse 68 | Temp(Src) 97.4 F (36.3 C) (Oral) | Resp 16 | Ht 5' 1" (1.549 m) | Wt 86.183 kg | BMI 35.90 kg/m2 | SpO2 100% | LMP 02/19 | ? No Coding CLINICAL IMPRESSION Encounter Diagnoses Name Primary? Low back pain examination or test, positive result CASE DISCUSSED PATIENT COUNSELING Diagnostics reviewed and questions answered. Diagnosis, treatment options and p remedios of care discussed with understanding verbalized. DISPOSITION, EDUCATION AND MEDICATION RECONCILIATION Medications reconciled. See after visit summary for patient education on discha rged patients. Will check UA and HCG UA appears clear. HCG reassuring. Home with Tylenol #3 one every four hours as n eeded for low back pain that appears to be musculoskeletal. If a significant angel nge in condition occurs see Dr Marcos or return to ER. NESS CHANGE MANAGER documented in this encounter Plan of Treatment Not on filedocumented as of this encounter Procedures Comments Procedure Name Priority Date/Time Associated Diag nosis HCG QUANTITATIVE, BLOOD Stat 04/04/2012 5:30 PM BUSINESS CHANGE MANAGER URINALYSIS W/REFLEX Stat 04/04/2012 MICROSCOPIC 4:50 PM BUSINESS CHANGE MANAGER documented in this encounter Results * HCG QUANTITATIVE, BLOOD (04/04/2012 5:30 PM BUSINESS CHANGE MANAGER) HCG QUANT, 1,913 mIU/ml [facility] BLOOD Comment: LABORATORY Expected Range for [...] the equivalent 3rd International Standard (3rd IS). TESHA MATTHEWS ACCT#[id number], ,,,, Specimen Blood specimen (specimen) Performing Organization Address City/[facility] Ph one Number [facility] LABORATORY SERVICES CLIA# [id number] TESHA GORDON [address] - [place] [address] [place] [address] LABORATORY SERVICES CLIA# [id number] TESHA GORDON [address] - [place] [address] [place] [address] * URINALYSIS (04/04/2012 4:50 PM BUSINESS CHANGE MANAGER) GLUCOSE UA Negative Negative mg/dl [facility] LABORATORY SERVICES - [place] BILIRUBIN UA Negative Negative [facility] LABORATORY SERVICES - [place] KETONES UA Trace (H) Negative mg/dl [facility] LABORATORY SERVICES - [place] SPECIFIC 1.023 1.002 - 1.030 [facility] GRAVITY UA LABORATORY SERVICES - [place] PH UA 6.0 [facility] LABORATORY SERVICES - [place] PROTEIN UA 50 (H) Negative mg/dl [facility] LABORATORY SERVICES - [place] UROBILINOGEN UA 2.0 (H) 0.2 - 1.0 EU/dl [facility] LABORATORY SERVICES - [place] NITRITE UA Negative Negative [facility] - [place] BLOOD UA Negative Negative [facility] LAB[facility]ORY [facility] - [place] LEUKOCYTE Trace (H) Negative [facility] ESTERASE UA LABORATORY SERVICES - [place] COLOR UA Yellow [facility] [place] CLARITY UA Hazy [facility] [place] WBC UA 2-5 0 - 5 /HPF [facility] [place] RBC UA 0-2 0 - 5 /HPF [facility] [place] BACTERIA UA Rare Negative /HPF [facility] - [place] MUCOUS, URINE Heavy /LPF [facility] - [place] EPITHELIAL 2+ squamous [facility] CELLS, URINE LABORATORY SERVICES - [place] HYALINE CAST 5-10 Negative /LPF [facility] LABORATORY SERVICES - [place] CA OXALATE 2+Comment: TESHA MATTHEWS Negative /HPF M ERCY CRYSTAL ACCT#[id number], ,,,, LABORATORY SERVICES - [place] Specimen Urine, clean catch - Urine, clean catch Narrative Performed At URINE, CLEAN [facility] - [place] Performing Organization Address City/[facility] Ph one Number [facility] LABORATORY SERVICES CLIA# [id number] TESHA GORDON [address] - [address] LABORATORY SERVICES CLIA# [id number] [facility] [place] [address] - [address] documented in this encounter Visit Diagnoses Diagnosis Low back pain Lumbago examination or test, positive result documented in this encounter
--- OUTSIDE RECORDS SUMMARY | 2019-09-21 04:11 | XMS REPORT | Encounter Summary ---
Author Author [facility] Organization [facility] Address Unknown Phone Unavailable Care Team Providers Care Data Assistant Name Role Phone Self, Lucius Heart MD PCP Encounter Details Care Team Description Date Type Department Anuja Contreras RN Pelvic pain in female (Primary Dx) 04/05/2012 Orders Only [facility] OBGYN- [place] [address] [place] [address] Social History Date Tobacco Use [...] filedocumented as of this encounter Results * URINE CULTURE (04/04/2012 4:50 PM DIRECTOR OF MATH) URINE CULTURE NO GROWTH AFTER 2 DAYSComment: CECIL JA[place]USTER, [place] LABORATORY ACCT#[id number], ,,,, [facility] Specimen Urine specimen (specimen) - Urine, clean catch Narrative Performed At PLEASE USE URINALYSIS FROM ER ON 04-04-12 CECIL HERNANDEZ PLEASE USE URINALYSIS FROM ER ON 04-04-12 [facility] PLEASE USE URINALYSIS FROM ER ON 04-04-12 [facility] Organization Address City/State/Zipcode Ph one Number [facility] LABORATORY SERVICES CLIA# [id number] [place], [place] [address] - [place] [address] [facility] LABORATORY SERVICES CLIA# [id number] [place] [address] - [place] [address] [facility] documented in this encounter Visit Diagnoses Diagnosis Pelvic pain in female - Primary Unspecified symptom associated with fem candi genital organs documented in this encounter
--- OUTSIDE RECORDS SUMMARY | 2019-09-21 04:11 | XMS REPORT | Encounter Summary ---
Author Author [facility] Organization [facility] Address Unknown Phone Unavailable Care Team Providers Care Food Sanitarian Name Role Phone Self, Lucius Heart MD PCP Encounter Details Care Team Description Date Type Department Evangelista Marcos, DO [address] [place] [address] [facility], Lab Schedule 05/10/2012 [facility] General Encounter Laboratory Services [address] [phone] Social History Date Tobacco Use [...] Date End Date Medication Sig Dispensed Refills 04/10/2012 05/15/2012 acetaminophen-codeine Take 1 Tab by 30 Tab 0 (TYLENOL-CODEINE #3) mouth every 4 300-30 mg Oral hours as tabletIndications: needed for Incomplete Pain, Moderate. 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 documented as of this encounter Plan of Treatment Not on filedocumented as of this encounter Procedures Comments Procedure Name Priority Date/Time Associated Diag nosis CBC WITHOUT DIFFERENTIAL Routine 05/10/2012 Other specified 3:47 PM PROGRAMMING COORDINATOR pre-operative examination documented in this encounter Results * CBC WITHOUT DIFFERENTIAL (05/10/2012 3:47 PM PROGRAMMING COORDINATOR) WBC 9.17 3.0 - 10.4 x10E3 [facility] LABORATORY SERVICES - [place] RBC 4.45 3.77 - 4.97 x10E6 [facility] LABORATORY SERVICES - [place] HEMOGLOBIN 13.2 11.9 - 15.0 g/dL [facility] LABORATORY SERVICES - [place] HEMATOCRIT 40.4 34.4 - 43.6 % [facility] LABORATORY SERVICES - [place] MCV 90.9 79 - 100 fL [facility] LABORATORY [facility] - [place] MCH 29.8 28 - 34 pg [facility] LABORATORY SERVICES - [place] MCHC 32.8 31 - 35 g/dL [facility] LABORATORY [facility] - [place] RDW 13.6 11.5 - 15.1 % [facility] LABORATORY [facility] - [place] PLATELETS 269 148 - 408 x10E3 [facility] LABORATORY SERVICES - [place] MPV 7.7Comment: CECILTESHA CEVALLOS 7.4 - 10.6 fL [facility] ACCT#[id number], ,,,, LABORATORY SERVICES - [place] Specimen Blood specimen (specimen) Performing Organization Address City/State/Zipcode Ph one Number [facility] LABORATORY SERVICES CLIA# [id number] [place] [address] - [place] [address] [place] [address] LABORATORY SERVICES CLIA# [id number] [place] [address] - [address] documented in this encounter Visit Diagnoses Diagnosis Other specified pre-operative examinati on documented in this encounter
--- OUTSIDE RECORDS SUMMARY | 2019-09-21 04:11 | XMS REPORT | Encounter Summary ---
Author Author [facility] Organization [facility] Address Unknown Phone Unavailable Care Team Providers Care Dietitian Assistant Name Role Phone Lucius Murry MD PCP Reason for Visit * Reason Comments Follow Up check up Medication Review wants to restart adderall Encounter Details Care Team Description Date Type Department Lucius Murry MD [address] [place] [address] ADD (attention deficit disorder); Obesity 05/29/2012 Office Visit [facility] Primar y Care [employer] [address] [place] [address] Social History Date Tobacco Use [...] Signs Reading Time Taken Comments Vital Sign 102/62 05/29/2012 8:52 AM SOAPING DEPARTMENT SUPERVISOR Blood Pressure - - Pulse - - Temperature - - Respiratory Rate - - Oxygen Saturation - - Inhaled Oxygen Concentration 89.4 kg (197 lb) 05/29/2012 8:52 AM SOAPING DEPARTMENT SUPERVISOR Weight 154.9 cm (5' 1") 05/29/2012 8:52 AM SOAPING DEPARTMENT SUPERVISOR Height 37.22 05/29/2012 8:52 AM SOAPING DEPARTMENT SUPERVISOR Body Mass Index documented in this encounter Progress Notes * Lucius Murry MD - 05/29/2012 8:58 AM SOAPING DEPARTMENT SUPERVISOR SUBJECTIVE: Opal Benavidez is a 22 y.o. female seen for follow up of below. Previous not e reviewed. Patient reports improvement. No side effects of new therapy. 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 Hx of ADD . Recent Dand C doing well. OBJECTIVE: BP 102/62 | Ht 5' 1" (1.549 m) | Wt 197 lb (89.359 kg) | BMI 37.22 kg/m2 | LMP 0 05/12/2012 S1 and S2 normal, no murmurs, clicks, gallops or rubs. Regular rate and rhythm. Chest is clear; no wheezes or rales. No edema. ASSESSMENT: Encounter Diagnoses Name Primary? ADD (attention deficit disorder) Obesity PLAN: Orders Placed This Encounter amphetamine-dextroamphetamine SR 24 hour (ADDERALL XR) 30 mg Oral capsule Plan of care reviewed with patient in detail. Will see in 3 months. Discussed with the patient and all questioned fully answered. She will call me if any pro blems arise. ING DEPARTMENT SUPERVISOR documented in this encounter Plan of Treatment Not on filedocumented as of this encounter Visit Diagnoses Diagnosis ADD (attention deficit disorder) Attention deficit disorder without ment ion of hyperactivity Obesity Obesity, unspecified documented in this encounter
--- OUTSIDE RECORDS SUMMARY | 2019-09-21 04:11 | XMS REPORT | Encounter Summary ---
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 documented as of this encounter Plan of Treatment Not on filedocumented as of this encounter Procedures Comments Procedure Name Priority Date/Time Associated Diag nosis URINALYSIS WITH REFLEX Stat 04/16/2012 Dysuria CULTURE 9:44 AM MARSHMALLOW MACHINE OPERATOR HCG QUANTITATIVE, BLOOD Stat 04/16/2012 Incomp lete 9:38 AM MARSHMALLOW MACHINE OPERATOR documented in this encounter Results * URINALYSIS WITH REFLEX CULTURE (04/16/2012 9:44 AM MARSHMALLOW MACHINE OPERATOR) GLUCOSE UA Negative Negative mg/dl [facility] [place] BILIRUBIN UA Small (H) Negative [facility] [place] KETONES UA Negative Negative mg/dl [facility] [place] SPECIFIC 1.028 1.002 - 1.030 [facility] GRAVITY [facility] [place] PH UA 6.0 [facility] [place] PROTEIN UA 50 (H) Negative mg/dl [facility] [place] UROBILINOGEN UA 2.0 (H) 0.2 - 1.0 EU/dl [facility] [place] NITRITE UA Negative Negative [facility] [place] BLOOD UA Negative Negative [facility] [place] LEUKOCYTE Trace (H) Negative [facility] ESTERASE [facility] [place] COLOR UA Yellow [facility] [place] CLARITY UA Hazy [facility] [place] WBC UA 2-5 0 - 5 /HPF [facility] [place] RBC UA 0-2 0 - 5 /HPF [facility] [place] MUCOUS, URINE Heavy /LPF [facility] [place] EPITHELIAL 3+ squamous [facility] CELLS, URINE [facility] [place] CA OXALATE 1+Comment: TESHA MATTHEWS Negative /HPF [facility] ACCT#[id number], ,,,, LABORATORY SERVICES - [place] Specimen Urine, clean catch Performing Organization Address City/State/Zipcode Ph one Number [facility] CLIA# [id number] TESHA GORDON [facility] 01 - [facility] [address] [place], [place] [address]IA# [id number] [place] [address] [facility] [address] [place] [address] * HCG QUANTITATIVE, BLOOD (04/16/2012 9:38 AM MARSHMALLOW MACHINE OPERATOR) HCG QUANT, 95 mIU/ml [facility] BLOOD Comment: LABORATORY Expected Range for [...] the equivalent 3rd International Standard (3rd IS). [facility] [place] ACCT#[id number], ,,,, Specimen Blood specimen (specimen) Performing Organization Address [facility] Ph one Number [facility] CLIA# [id number] TESHA GORDON [place] 01 - [place] [address] [place] [address] CLIA# [id number] [place] [address] documented in this encounter Visit Diagnoses Diagnosis Dysuria Incomplete Legally unspecified , incomplet e, without mention of complication documented in this encounter
--- OUTSIDE RECORDS SUMMARY | 2019-09-21 04:11 | XMS REPORT | Encounter Summary ---
Author Author [facility] Organization [facility] Address Unknown Phone Unavailable Care Team Providers Care Packer Name Role Phone Self, Lucius Heart MD PCP Encounter Details Care Team Description Date Type Department Leighann Ziegler Incomplete (Primary Dx) 04/10/2012 Orders Only [facility] [address] [place] [address] Social History Date Tobacco Use [...] this encounter Results * HCG QUANTITATIVE, BLOOD (04/16/2012 9:38 AM DEALER RELATIONSHIP MANAGER) HCG QUANT, 95 mIU/ml [facility] BLOOD Comment: LABORATORY Expected Range for non [...] the equivalent 3rd International Standard (3rd IS). [facility] ACCT#[id number], ,,,, Specimen Blood specimen (specimen) Performing Organization Address City/State/[facility] Ph one Number [facility] CLIA# [id number] [place] [address] [address] LABORATORY SERVICES CLIA# [id number] [place] [address] - [address] documented in this encounter Visit Diagnoses Diagnosis Incomplete - Primary Legally unspecified , incomplet e, without mention of complication documented in this encounter
--- OUTSIDE RECORDS SUMMARY | 2019-09-21 04:11 | XMS REPORT | Encounter Summary ---
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 documented as of this encounter Plan of Treatment Not on filedocumented as of this encounter Procedures Comments Procedure Name Priority Date/Time Associated Diag nosis HCG QUANTITATIVE, BLOOD Routine 05/02/2012 Incomp lete 3:19 PM UPPER LEATHER CUTTER documented in this encounter Results * HCG QUANTITATIVE, BLOOD (05/02/2012 3:19 PM UPPER LEATHER CUTTER) HCG QUANT, 6 mIU/ml [facility] BLOOD Comment: LABORATORY Expected Range for non [...] 3rd International Standard (3rd IS). TESHA MATTHEWS ACCT#[id number], ,,,, Specimen Blood specimen (specimen) Performing Organization Address City/State/[facility] Ph one Number [facility] CLIA# [id number] [place] [address] [address] LABORATORY SERVICES CLIA# [id number] [place] [address] - [address] documented in this encounter Visit Diagnoses Diagnosis Incomplete Legally unspecified , incomplet e, without mention of complication documented in this encounter
--- OUTSIDE RECORDS SUMMARY | 2019-09-21 04:11 | XMS REPORT | Encounter Summary ---
Author Author [facility] Organization [facility] Address Unknown Phone Unavailable Care Team Providers Care Wood Web Weaving Machine Operator Name Role Phone Self, Lucius Heart MD PCP Reason for Visit * Reason Comments Vaginal Bleeding Had a gush of blood approx 1 hour ago then has used 2 tampons in the past 30 minutes. last changed tampon 20 min utes ago. Encounter Details Care Team Description Date Type Department Parveen Reyna MD NO ADDRESS ON FILE Vaginal bleeding; Spontaneous miscarriage 04/08/2012 Emergency [facility] Emergency Department [address] [id number] Social History Date Tobacco Use Types Packs/Day [...] Signs Reading Time Taken Comments Vital Sign 106/55 04/08/2012 5:43 PM CHIEF PASSENGER SHIP STEWARD/STEWARDESS Blood Pressure 84 04/08/2012 5:43 PM CHIEF PASSENGER SHIP STEWARD/STEWARDESS Pulse 36.8 C (98.3 F) 04/08/2012 5:43 PM CHIEF PASSENGER SHIP STEWARD/STEWARDESS Temperature 20 04/08/2012 5:43 PM CHIEF PASSENGER SHIP STEWARD/STEWARDESS Respiratory Rate 99% 04/08/2012 5:43 PM CHIEF PASSENGER SHIP STEWARD/STEWARDESS Oxygen Saturation - - Inhaled Oxygen Concentration 86.2 kg (190 lb) 04/08/2012 5:43 PM CHIEF PASSENGER SHIP STEWARD/STEWARDESS Weight 154.9 cm (5' 1") 04/08/2012 5:43 PM CHIEF PASSENGER SHIP STEWARD/STEWARDESS Height 35.9 04/08/2012 5:43 PM CHIEF PASSENGER SHIP STEWARD/STEWARDESS Body Mass Index documented in this encounter Discharge Summaries * Aok Scanning, Him - 04/09/2012 11:59 AM CHIEF PASSENGER SHIP STEWARD/STEWARDESS Electronically signed by Minh Reidk Transcriptions Incoming at 2 11:59 AM CHIEF PASSENGER SHIP STEWARD/STEWARDESS documented in this encounter Discharge Instructions * Instructions* Guillermina Ambrose RN - 04/08/2012 Make sure to keep your appointment with Dr. Marcos as scheduled. If continues to bleed for more than another 24 hours, make sure to contact Dr. Macho lamar immediately. No intercourse until released by Dr. Marcos. * Attachments The following attachments cannot be sent through Care Everywhere.* MISCARRIAGE: AFTER YOUR VISIT ([place]) documented in this encounter Medications at Time [...] mouth daily XR) 30 mg Oral capsule trade facilitator for 30 days. documented as of this encounter ED Notes * Guillermina Ambrose RN - 04/08/2012 7:04 PM CHIEF PASSENGER SHIP STEWARD/STEWARDESS Pt was given copy of discharge instructions, handouts & instructions to keep appt with Dr. Marcos later this week. Voiced understanding and left the ER ambulatory. F PASSENGER SHIP STEWARD/STEWARDESS * Guillermina Ambrose RN - 04/08/2012 6:55 PM CHIEF PASSENGER SHIP STEWARD/STEWARDESS Dr. Reyna to room to visit with pt. F PASSENGER SHIP STEWARD/STEWARDESS * Guillermina Ambrose RN - 04/08/2012 6:51 PM CHIEF PASSENGER SHIP STEWARD/STEWARDESS Lab results completed & pt aware. Has not had any further reports of bleeding at this time. Dr. Reyna paged. F PASSENGER SHIP STEWARD/STEWARDESS * Beata Reyna MD - 04/08/2012 6:10 PM CHIEF PASSENGER SHIP STEWARD/STEWARDESS HISTORY OF PRESENT ILLNESS Opal Benavidez, a 21 y.o. female presents to the ED with a Chief Complaint of Vaginal Bleeding HPI Comments: Here with vaginal bleeding and suprapubic pain, both of which esse ntially gone now. History of 1 previous Miscarriage. A1 and ?. No N,V,D,C or fever or dysuria. Patient is a 21 y.o. female presenting with vagainal bleeding. Vaginal Bleeding Pertinent negatives include no chest pain, no abdominal pain and no shortness of breath. REVIEW OF SYSTEMS Review of Systems Constitutional: Negative for fever, activity change, appetite change, fatigue an d unexpected weight change. HENT: Negative for congestion and neck stiffness. Respiratory: Negative for shortness of breath. Cardiovascular: Negative for chest pain. Gastrointestinal: Negative for abdominal pain. Genitourinary: Positive for vaginal bleeding. Negative for menstrual problem. Musculoskeletal: Negative for arthralgias. Neurological: Negative for weakness. PAST MEDICAL HISTORY REVIEWED Past Medical History Diagnosis Date ADD (attention deficit disorder with hyperactivity) Obesity (BMI 30.0-39.9) 2008 Depression cymbalta Past Surgical History Procedure Date Hx section 12/2005 Arrest of dilation @ 3 cm. Delivered in [place], [place] (rqt) Hx gastric bypass 01/11/12 gastric [...] Home Medications New Prescriptions for this Encounter Current Home Medications ACETAMINOPHEN-CODEINE (TYLENOL #3) 300-30 MG ORAL TABLET Take 1 Tab by mouth every 4 hours as needed for Pain. CLOMIPHENE CITRATE (CLOMID) 50 MG ORAL TABLET [...] CAP Take 1 Cap by mouth mohan ly. Medications Modified during this Encounter Medications Discontinued during this Encounter PHYSICAL EXAM Initial Vitals BP 04/08/12 1743 106/55 mmHg Pulse 04/08/12 1743 84 Resp 04/08/12 1743 20 Temp 04/08/12 1743 98.3 F (36.8 C) Temp src 04/08/12 1743 Oral SpO2 04/08/12 1743 99 % Physical Exam Nursing note and vitals reviewed. Constitutional: She is oriented to person, place, [...] normal. Abdominal: Soft. Bowel sounds are normal. She exhibits no distension and no mass . There is no tenderness. There is no rebound and no guarding. Musculoskeletal: Normal range of motion. Neurological: She is alert and oriented to person, place, and time. Skin: Skin is warm and dry. DIAGNOSTICS LAB: Results for orders placed during the hospital encounter of 04/08/12 (from the [facility] 24 hour(s)) CBC WITH DIFFERENTIAL Component Value Range WBC 8.16 3.0 - 10.4 x10E3 RBC 4.46 3.77 - 4.97 x10E6 HEMOGLOBIN 12.8 11.9 - 15.0 g/dL HEMATOCRIT 40.9 34.4 - 43.6 % MCV 91.5 79 - 100 fL MCH 28.7 28 - 34 pg MCHC 31.3 31 - 35 g/dL RDW 13.7 11.5 - 15.1 % PLATELETS 234 148 - 408 x10E3 MPV 8.0 7.4 - 10.6 fL NEUTROPHILS 56.4 43 - 73 % LYMPHOCYTES 36.7 19 - 47 % MONOCYTES 4.5 3 - 9 % EOSINOPHILS 2.0 0 - 6 % BASOPHILS 0.4 0 - 1.2 % NEUTROPHIL ABSOLUTE 4.60 1.3 - 7.6 x10E3 LYMPHOCYTE ABSOLUTE 3.00 0.6 - 4.9 x10E3 MONOCYTE ABSOLUTE 0.37 0.1 - 0.9 x10E3 EOSINOPHIL ABSOLUTE 0.16 0.0 - 0.2 x10E3 BASOPHILS ABSOLUTE 0.03 0 - 0.1 x10E3 HCG QUANTITATIVE, BLOOD Component Value Range HCG QUANT, BLOOD 195 RH (D) TYPE Component Value Range TYPENEX # [id number] RH (D) TYPE POSITIVE RADIOLOGY: EKG: PROCEDURES Procedures REEVALUATION MEDICAL DECISION MAKING AND PLAN OF CARE . New Prescriptions for this Encounter Last vitals BP 106/55 | Pulse 84 | Temp(Src) 98.3 F (36.8 C) (Oral) | Resp 20 | Ht 5' 1" (1.549 m) | Wt 86.183 kg | BMI 35.90 kg/m2 | SpO2 99% | LMP 2011 MDM Coding Reviewed: previous chart, nursing note and vitals Reviewed previous: labs Interpretation: labs CLINICAL IMPRESSION Encounter Diagnoses Name Primary? Vaginal bleeding Spontaneous miscarriage CASE DISCUSSED PATIENT COUNSELING Diagnostics reviewed and questions answered. Diagnosis, treatment options and p remedios of care discussed with understanding verbalized. DISPOSITION, EDUCATION AND MEDICATION RECONCILIATION Medications reconciled. See after visit summary for patient education on discha rged patients. To follow up with PCP next week and further disposition F PASSENGER SHIP STEWARD/STEWARDESS * Guillermina Ambrose RN - 04/08/2012 6:08 PM CHIEF PASSENGER SHIP STEWARD/STEWARDESS Dr. Reyna to room to visit with pt. Pt back from bathroom and reports that the bleeding has significantly slowed glendy n. F PASSENGER SHIP STEWARD/STEWARDESS * Guillermina Ambrose RN - 04/08/2012 5:45 PM CHIEF PASSENGER SHIP STEWARD/STEWARDESS Pt ambulatory to ER with c/o vaginal bleeding that started approx 1 hour ago. S tates that she is thinking that she is miscarrying again. Denies that she has h ad any intercourse over the past 24 hours and that she was just standing up when this occurred. Pt states that she is anemic and that she is probably getting more anemic. Skin pink/warm/dry. States that she passed bright red blood that was "clear" in nature. F PASSENGER SHIP STEWARD/STEWARDESS documented in this encounter Plan of Treatment Not on filedocumented as of this encounter Procedures Comments Procedure Name Priority Date/Time Associated Diag nosis RH (D) TYPE Stat 04/08/2012 6:08 PM CHIEF PASSENGER SHIP STEWARD/STEWARDESS CBC WITH DIFFERENTIAL Stat 04/08/2012 6:08 PM CHIEF PASSENGER SHIP STEWARD/STEWARDESS HCG QUANTITATIVE, BLOOD Stat 04/08/2012 6:08 PM CHIEF PASSENGER SHIP STEWARD/STEWARDESS documented in this encounter Results * RH (D) TYPE (04/08/2012 6:08 PM CHIEF PASSENGER SHIP STEWARD/STEWARDESS) TYPENEX # [id number] [facility] [place] RH (D) TYPE POSITIVEComment: [place] LABORATORY ACCT#[id number], ,,,, SERVICES - [place] Specimen Blood specimen (specimen) Performing Organization Address City/State/Zipcode Ph one Number [facility] CLIA# [id number] [place], [place] [address] [address] LABORATORY SERVICES CLIA# [id number] [place] [address] - [address] * HCG QUANTITATIVE, BLOOD (04/08/2012 6:08 PM CHIEF PASSENGER SHIP STEWARD/STEWARDESS) [facility] HCG QUANT, 195 mIU/ml [facility] BLOOD Comment: LABORATORY Expected Range for [...] the equivalent 3rd International Standard (3rd IS). [facility] [place] ACCT#[id number], ,,,, Specimen Blood specimen (specimen) Performing Organization Address [facility] Ph one Number [facility] CLIA# [id number] [place], [place] [address] [address] CLIA# [id number] [place] [address] - [address] * CBC WITH DIFFERENTIAL (04/08/2012 6:08 PM CHIEF PASSENGER SHIP STEWARD/STEWARDESS) [facility] WBC 8.16 3.0 - 10.4 x10E3 [facility] RBC 4.46 3.77 - 4.97 x10E6 [facility] HEMOGLOBIN 12.8 11.9 - 15.0 g/dL [facility] HEMATOCRIT 40.9 34.4 - 43.6 % [facility] MCV 91.5 79 - 100 fL [facility] MCH 28.7 28 - 34 pg [facility] [place] MCHC 31.3 31 - 35 g/dL [facility] [place] RDW 13.7 11.5 - 15.1 % [facility] [place] PLATELETS 234 148 - 408 x10E3 [facility] [place] MPV 8.0 7.4 - 10.6 fL [facility] [place] NEUTROPHILS 56.4 43 - 73 % [facility] LYMPHOCYTES 36.7 19 - 47 % [facility] [place] MONOCYTES 4.5 3 - 9 % [facility] [place] EOSINOPHILS 2.0 0 - 6 % [facility] [place] BASOPHILS 0.4 0 - 1.2 % [facility] [place] NEUTROPHIL 4.60 1.3 - 7.6 x10E3 [facility] [place] LYMPHOCYTE 3.00 0.6 - 4.9 x10E3 [facility] [place] MONOCYTE 0.37 0.1 - 0.9 x10E3 [facility] [place] EOSINOPHIL 0.16 0.0 - 0.2 x10E3 [facility] [place] BASOPHILS 0.03Comment: [facility] 0 - 0.1 x10E3 [facility] ACCT#[id number], ,,,, LABORATORY SERVICES - [place] Specimen Blood specimen (specimen) Performing Organization Address City/State/Zipcode Ph one Number [facility] CLIA# [id number] [place] [address] [address] LABORATORY SERVICES CLIA# [id number] [facility] [place] [address] [address] documented in this encounter Visit Diagnoses Diagnosis Vaginal bleeding Other specified noninflammatory disorde r of vagina Spontaneous miscarriage Unspecified spontaneous withou t mention of complication documented in this encounter
--- OUTSIDE RECORDS SUMMARY | 2019-09-21 04:11 | XMS REPORT | Encounter Summary ---
Author Author [facility] Organization [facility] Address Unknown Phone Unavailable Care Team Providers Care Wireless Operator Name Role Phone Jeanmarie, Lucius Heart MD PCP Reason for Visit * Reason Comments Preop Exam for hysteroscopy Encounter Details Care Team Description Date Type Department Evangelista Marcos, DO [address] [place] [address] Other specified pre-operative examinatio n (Primary Dx); History of recurrent miscarriages, not currently 05/10/2012 History & [facility] [address] [place] [address] Social History Date Tobacco Use [...] Reading Time Taken Comments Vital Sign 120/70 05/10/2012 3:06 PM GEOSCIENCE TECHNICIAN Blood Pressure - - Pulse 37.1 C (98.7 F) 05/10/2012 3:06 PM GEOSCIENCE TECHNICIAN Temperature - - Respiratory Rate - - Oxygen Saturation - - Inhaled Oxygen Concentration 87.1 kg (192 lb) 05/10/2012 3:06 PM GEOSCIENCE TECHNICIAN Weight 154.9 cm (5' 1") 05/10/2012 3:06 PM GEOSCIENCE TECHNICIAN Height 36.28 05/10/2012 3:06 PM GEOSCIENCE TECHNICIAN Body Mass Index documented in this encounter Progress Notes * Evangelista Marcos, - 05/10/2012 3:30 PM GEOSCIENCE TECHNICIAN HISTORY OF PRESENT ILLNESS Opal Benavidez, a 22 y.o. female. HPI Ms. Benavidez presents to our office to schedule surgery, Hysteroscopy, for recurren t loss. She states that she isn't having any problems at this time. REVIEW OF SYSTEMS Review of Systems PmHx: Recurrent Loss PsHx: Gastric Bypass, x 1 Medications: None A llergies: Sulfa (Hives, stops breathing) PObHx: L3U2J5--6 , 2 spontaneous both at approximately 6 week s PGynHx: Menses at age 13 with a 30 day cycle lasting for 6 days with a heavy fl ow and severe pain and cramps. Admits to having yeast infection and PID. Gunnar s abnormal Pap Smear Past Social/Family History: Admits to smoking 1 ppd. Drinks 2 glasses of wine per month. Denies illicit drugs. Admits to paternal grandfather with cancer PHYSICAL EXAM BP 120/70 | Temp 98.7 F (37.1 C) | Ht 5' 1" (1.549 m) | Wt 192 lb (87.091 kg ) | BMI 36.28 kg/m2 Physical Exam General appearance: active, alert, in [...] sounds normal. No masses, no organomegaly. Pelvic: deferred to the time of surgery, then an examination under anesthesia Extremities: extremities normal, atraumatic, no cyanosis or edema, intact distal pulses, moves all extremities equally, no edema, redness or tenderness in the c badillo or thighs, normal strength, normal tone Neurologic: Alert and oriented X 3, normal strength and tone. Normal symmetric r eflexes. Normal coordination and gait ASSESSMENT and PLAN: 1. Other specified pre-operative examination (V72.83) CBC WITHOUT DIFFERENTIAL 2. 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 Benavidez for a Hysteroscopy/D & C on 05/15/2012. The procedure and its associated risks were discussed. All questions were answered. Informed consent was obtained. CIENCE TECHNICIAN documented in this encounter H&P Notes * Evangelista Marcos DO - 05/10/2012 3:37 PM GEOSCIENCE TECHNICIAN HISTORY OF PRESENT ILLNESS Opal Benavidez, a 22 y.o. female. HPI Ms. Benavidez presents to our office to schedule surgery, Hysteroscopy, for recurren t loss. She states that she isn't having any problems at this time. REVIEW OF SYSTEMS Review of Systems PmHx: Recurrent Loss PsHx: Gastric Bypass, x 1 Medications: None A llergies: Sulfa (Hives, stops breathing) PObHx: L2M1L9--6 , 2 spontaneous both at approximately 6 week s PGynHx: Menses at age 13 with a 30 day cycle lasting for 6 days with a heavy fl ow and severe pain and cramps. Admits to having yeast infection and PID. Gunnar s abnormal Pap Smear Past Social/Family History: Admits to smoking 1 ppd. Drinks 2 glasses of wine per month. Denies illicit drugs. Admits to paternal grandfather with cancer PHYSICAL EXAM BP 120/70 | Temp 98.7 F (37.1 C) | Ht 5' 1" (1.549 m) | Wt 192 lb (87.091 kg ) | BMI 36.28 kg/m2 Physical Exam General appearance: active, alert, in [...] sounds normal. No masses, no organomegaly. Pelvic: deferred to the time of surgery, then an examination under anesthesia Extremities: extremities normal, atraumatic, no cyanosis or edema, intact distal pulses, moves all extremities equally, no edema, redness or tenderness in the c badillo or thighs, normal strength, normal tone Neurologic: Alert and oriented X 3, normal strength and tone. Normal symmetric r eflexes. Normal coordination and gait ASSESSMENT and PLAN: 1. Other specified pre-operative examination (V72.83) CBC WITHOUT DIFFERENTIAL 2. 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 Benavidez for a Hysteroscopy/D & C on 05/15/2012. The procedure and its associated risks were discussed. All questions were answered. Informed consent was obtained. CIENCE TECHNICIAN documented in this encounter Plan of Treatment Not on filedocumented as of this encounter Results * CBC WITHOUT DIFFERENTIAL (05/10/2012 3:47 PM GEOSCIENCE TECHNICIAN) WBC 9.17 3.0 - 10.4 x10E3 [facility] - [place] RBC 4.45 3.77 - 4.97 x10E6 [facility] - [place] HEMOGLOBIN 13.2 11.9 - 15.0 g/dL [facility] [place] HEMATOCRIT 40.4 34.4 - 43.6 % [facility] [place] MCV 90.9 79 - 100 fL [facility] - [place] MCH 29.8 28 - 34 pg [facility] - [place] MCHC 32.8 31 - 35 g/dL [facility] - [place] RDW 13.6 11.5 - 15.1 % [facility] - [place] PLATELETS 269 148 - 408 x10E3 [facility] - [place] MPV 7.7Comment: CECILTESHA CEVALLOS 7.4 - 10.6 fL [facility] ACCT#[id number], ,,,, LABORATORY SERVICES - [place] Specimen Blood specimen (specimen) Performing Organization Address City/State/Zipcode Ph one Number [facility] CLIA# [id number] [place] [address] [address] LABORATORY SERVICES CLIA# [id number] [place] [address] - [address] documented in this encounter Visit Diagnoses Diagnosis Other specified pre-operative examinati on - Primary History of recurrent miscarriages, not currently Recurrent loss without curren t documented in this encounter
--- OUTSIDE RECORDS SUMMARY | 2019-09-21 04:11 | XMS REPORT | Encounter Summary ---
Author Author [facility] Organization [facility] Address Unknown Phone Unavailable Care Team Providers Care Industrial Order Clerk Name Role Phone Self, Lucius Heart MD PCP Reason for Visit * Auth/Cert Referred By Contact Referred To Contact Status Reason Specialty Diagnoses / Procedures [facility] Operating Room [address] [place] [address] Closed Diagnoses Recurrent Loss P rocedures HYSTEROSCOPY Encounter Details Care Team Description Date Type Department Evangelista Marcos, DO [address] [place] [address] HYSTEROSCOPY 05/15/2012 Surgery [facility] Operating Room [address] [place] [address] Social History Date Tobacco Use [...] Signs Reading Time Taken Comments Vital Sign 106/64 05/15/2012 10:05 AM SUBCONTRACT MANAGER Blood Pressure 60 05/15/2012 9:34 AM SUBCONTRACT MANAGER Pulse 36.3 C (97.4 F) 05/15/2012 9:34 AM SUBCONTRACT MANAGER Temperature 12 05/15/2012 10:05 AM SUBCONTRACT MANAGER Respiratory Rate 100% 05/15/2012 10:05 AM SUBCONTRACT MANAGER Oxygen Saturation - - Inhaled Oxygen Concentration 86.2 kg (190 lb) 05/15/2012 7:37 AM SUBCONTRACT MANAGER Weight 154.9 cm (5' 1") 05/15/2012 7:37 AM SUBCONTRACT MANAGER Height 35.9 05/15/2012 7:37 AM SUBCONTRACT MANAGER Body Mass Index documented in this encounter Discharge Instructions * Patient Instructions* Venus Morales - 05/16/2012 1:51 PM SUBCONTRACT MANAGER Electronically signed by Minh Reid Transcriptions Incoming at 3 1:51 PM SUBCONTRACT MANAGER * Additional Instructions* Kassidy Hamilton RN - 05/15/2012 Postoperative Instructions The following instructions have been prepared to help you care for yourself, or be cared for, upon your return home today. This information covers the immediate post-surgery period but still provides guidelines for your convalescence. If you have any questions after you get home, please call your physician. If unable to reach your physician with urgent or severe problems, call the Emergency Room at [phone]. FOLLOW-UP:Dr. Marcos on May 22 at 2:15 PM 1. No strenuous exercise or activity. No heavy lifting for 1 week. 2. If your temperature is higher than 101 degrees, call your doctor's office. 3. You will have some bleeding following the procedure. It should not be heavier than a normal period, call your doctors office if it is. 4. You may have slight cramping for the first day or two. Any severe pain or acid crane operator mping which persists after the first day or two should be brought to your doctor s attention. 5. To help prevent infection, you should not have intercourse or douche. Use pad s, not tampons. 6. You should have a check-up in 1 week, unless otherwise instructed. 7. You may receive prescriptions and further directions. 8. No intercourse, douching or tampons for 6 weeks or until ok'd By your physi srinivasan. 9. DANGER SIGNS; PAIN, HEAVY BLEEDING, AND FEVER 10. If you have any questions or problems call our office at [phone]. 11. Diet as tolerated. Start out with a light snack or small meal. 12. Rest today, resume normal activities kirsty. documented in this encounter Medications at Time of Discharge Start Date End Date Medication Sig Dispensed Refills 10/20/2010 05/29/2012 amphetamine-dextroampheta Take 1 Cap by 30 Cap 0 mine SR 24 hour (ADDERALL mouth daily XR) 30 mg Oral capsule answerer for 30 days. documented as of this encounter H&P Notes * Hemant Evangelistaester Beckett DO - 05/15/2012 8:38 AM SUBCONTRACT MANAGER HISTORY OF PRESENT ILLNESS Surekha Marcial, a 22 y.o. female. HPI Ms. Marcial presents to our office to schedule surgery, Hysteroscopy, for recurren t loss. She states that she isn't having any problems at this time. REVIEW OF SYSTEMS Review of Systems PmHx: Recurrent Loss PsHx: Gastric Bypass, x 1 Medications: None Allergies: Sulfa (Hives, stops breathing) PObHx: G7V1J3--3 , 2 spontaneous both at approximately 6 weeks PGynHx: Menses at age 13 with a 30 day cycle lasting for 6 days with a heavy maykel w and severe pain and cramps. Admits to having yeast infection and PID. Denies a bnormal Pap Smear Past Social/Family History: Admits to smoking 1 ppd. Drinks 2 glasses of wine pe r month. Denies illicit drugs. Admits to paternal [...] History of recurrent miscarriages, not currently (629.81) 05/15/2012 Patient seen and examined with no interval changes. Procedure and its associated risks were reviewed. All questions were answered. Dr. Marcos ONTRACT MANAGER documented in this encounter OR Notes * OR Anesthesia - Venus Morales - 05/16/2012 1:51 PM SUBCONTRACT MANAGER Electronically signed by Minh Reid Transcriptions Incoming at 3 1:51 PM SUBCONTRACT MANAGER * OR Anesthesia - Delta Lewis CRNA - 05/15/2012 12:21 PM SUBCONTRACT MANAGER Post Anesthesia Evaluation Note Anesthesia Type: General Airway Patency: normal Vital Signs: Temp: 97.4 F (36.3 C) (05/15/12 09) Heart Rate (Monitored): 60 bpm (05/15/12 1005) Pulse: 60 (05/15/12 0934) BP: 106/64 mmHg (05/15/12 1005) Resp: 12 (05/15/12 1005) SpO2: 100 % (05/15/12 1005) Pain Assessment: Presence of Pain: denies pain/discomfort (05/15/12 100) Gastrointestinal Assessment: Gastrointestinal (WDL): WDL (05/15/12 0747) Last Nausea: Last Emesis: Emesis (mL): 0 mL (05/15/12 100) Post-Op hydration: Intake/Output Summary (Last 24 hours) at 05/15/12 1221 Last data filed at 05/15/12 1005 Gross per 24 hour Intake 1000 ml Output 100 ml Net 900 ml Post Anesthesia Modified Aidan: Activity: able to move 4 extremities voluntarily or on command (05/15/12 1005) Respiration: able to breath and cough freely (05/15/12 1005) Circulation: BP within 20% of preanesthetic level (05/15/12 1005) Consciousness: fully awake (05/15/12 1005) O2 Saturation: able to maintain O2 saturation greater than 92% on room air ( 12/18 1005) Michael Lewis CRNA 05/15/2012; 12:21 PM ONTRACT MANAGER * Maite-OP - Annita Dougherty - 05/15/2012 9:47 AM SUBCONTRACT MANAGER Monsels used by Dr. Marcos at end of case. ONTRACT MANAGER * Operative Report - Evangelista Marcos DO - 05/15/2012 9:37 AM SUBCONTRACT MANAGER Hysteroscopy/D & C Pre-operative Diagnosis: Recurrent Loss Post-operative Diagnosis: Recurrent Loss Surgeon: Evangelista Marcos DO Assistants: None Anesthesia: General endotracheal anesthesia ASA Class: 1 Procedure Details The risks of the procedure were explained to the patient to include bleeding, in fection, injury to adjacent organs such as the bowel, bladder, ureters, uterus, tubes, ovaries and any nerves or vessels coursing through the pelvic cavity, genia ction to anesthesia and possible . After this was explained to the patient, an informed consent was obtained. The patient was taken to the operating room w ith IV fluids running. Once in the Operating Room, general anesthesia was admin istered without difficulty. The patient was placed in the dorsolithotomy positi on and prepped and draped in a normal sterile fashion. A bivalve speculum was in troduced into her vaginal vault. The anterior lip of the cervix was grasped with a single tooth tenaculum. She was dilated up in a step-spence fashion with Cem zoltan dilators. I utilized a large sharp curette that was introduced into her int rauterine cavity and a curettage was performed until a grainy texture was noted. Hysteroscope was introduced into intrauterine cavity, moderate "fluffy" endome trial tissue was noted. Nothing untoward was noted. A single tooth tenaculum was removed from the anterior lip of the cervix. There was a small amount of ble eding which was controlled with Monsel solution. The bivalve speculum was remove d. Sponge, lap, needle and instrument counts were correct X3. The patient isabella erated the procedure well. She was taken to the Recovery Room in good and stabl e condition where follow up orders and pain management were instituted. Findings: The uterus sounded to 8 cm The adnexa unremarkable Estimated Blood Loss: Minimal Total IV Fluids: 1000 ml Urinary Output: 100 ml Specimens: Endometrial currettings Complications: None; patient tolerated the procedure well. Disposition: Discharge to home when meets criteria ONTRACT MANAGER * OR Anesthesia - Delta Lewis CRNA - 05/15/2012 9:36 AM SUBCONTRACT MANAGER Post Operative Anesthesia Note Patient: Surekha Marcial Medical record: [id number] Post: HYSTEROSCOPY, DILATATION AND CURETTAGE SUCTION Anesthesia Problems: No anesthesia problems/complications 05/15/2012, 9:38 AM Will LALITHA Lewis ONTRACT MANAGER * OR Anesthesia - Delta Lewis CRNA - 05/15/2012 9:09 AM SUBCONTRACT MANAGER Subjective: 05/15/2012 , the patient and spouse were interviewed in the Pre-Op. Patient is a [age] y.o. female scheduled for Procedure(s): HYSTEROSCOPY DILATATION AND CURETTAGE SUCTION. Medical record [id number]. Patient Active Problem List Diagnoses Date Noted History of recurrent miscarriages, not currently 05/10/2012 Encounter to discuss test results 03/02/2012 Incomplete 06/13/2011 Anovulation 11/29/2010 ADD (attention deficit disorder) 08/06/2010 Obesity (BMI 30.0-39.9) Past Medical History Diagnosis Date ADD (attention deficit disorder with hyperactivity) Obesity (BMI 30.0-39.9) 2009 Depression cymbalta Past Surgical History Procedure Date Hx section 12/2005 Arrest of dilation @ 3 cm. 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 Current Outpatient Prescriptions on File Prior to Encounter Medication Sig Dispense Refill acetaminophen-codeine (TYLENOL-CODEINE #3) 300-30 mg Oral tablet Take 1 Tab by mouth every 4 hours as needed for Pain, Moderate. 30 Tab 0 acetaminophen-codeine (TYLENOL #3) 300-30 mg Oral tablet Take 1 Tab by mouth every 4 hours as needed for Pain. 20 Tab None progesterone micronized (PROMETRIUM) 200 mg Oral Cap Take 1 Cap by mouth mohan ly. 30 Cap 2 omeprazole (PRILOSEC) 40 mg Oral CpDR Take 1 Cap by mouth daily. 30 Cap 1 clomiPHENE citrate (CLOMID) 50 mg Oral tablet Take 1 Tab by mouth daily. Amilcar e one tablet orally for five days starting on day 6 of menstrual cycle. Then, i ncrease sexual activity 8 days after last pill. 30 Tab 1 fluticasone (FLONASE) 50 mcg/spray Both Nostril SpSn Administer 2 Sprays in each nostril daily. 1 Bottle 1 loratadine (CLARITIN) 10 mg Oral tablet Take 1 Tab by mouth daily. 30 Tab 3 Current facility-administered medications:lactated ringers solution, , IV, Pre-P yefri Continuous, Seals, Evangelista E, DO, Last Rate: 125 mL/hr at 05/15/12 0759 Allergies Allergen Reactions Sulfa(Sulfonamide Antibiotics) Hives Anesthesia Concerns Risks discussed, questions answered, consent signed. ASA Risk ASA 2 - Patient with mild systemic disease with no functional limitations Plan: Monitoring explained. Airway assessment was perfomed; a Mallampati score of II (soft palate, uvula, fauces visible) was given. The risks and benefits of the p roposed anesthetic have been discussed with patient and spouse. The patient/robert ignee has agreed to GA/LMA with GETA as a backup. Anesthesia guideline orders i nitiated. ONTRACT MANAGER documented in this encounter Miscellaneous Notes * Scanned Form - Scanning, Aok - 05/16/2012 1:51 PM SUBCONTRACT MANAGER Electronically signed by Interface, Minh Aok Transcriptions Incoming at 3 1:51 PM SUBCONTRACT MANAGER * Scanned Form - Scanning, Aok - 05/16/2012 1:51 PM SUBCONTRACT MANAGER Electronically signed by Interface, Minh Aok Transcriptions Incoming at 3 1:51 PM SUBCONTRACT MANAGER documented in this encounter Plan of Treatment Not on filedocumented as of this encounter Procedures Comments Procedure Name Priority Date/Time Associated Diag nosis PATHOLOGY Routine 05/15/2012 2:23 PM SUBCONTRACT MANAGER DILATATION AND CURETTAGE 05/15/2012 History of r ecurrent SUCTION 8:40 AM SUBCONTRACT MANAGER miscarriages, not currently HYSTEROSCOPY 05/15/2012 History of recurren t 8:40 AM SUBCONTRACT MANAGER miscarriages, not currently HCG QUANTITATIVE, BLOOD Stat 05/15/2012 7:45 AM SUBCONTRACT MANAGER documented in this encounter Results * PATHOLOGY (05/15/2012 2:23 PM SUBCONTRACT MANAGER) SURGICAL Name: SUREKHA MARCIAL [facility] : PATHOLOGY 90 [facility] Sex: F Unit#: [id number] Room/Bed: [facility] PRE-6 Ordering Physician: Evangelista Marcos D.O. RECD: 05/15/12 PROCEDURE DATE: 05/15/[address] [facility] [address]: Evangelista Marcos D.O. [facility] DR: ICD CODES: 626.2 PROCEDURES: [id number] LOCATION: [facility] EPIC MATERIAL SUBMITTED Endometrial curettings. CLINICAL DIAGNOSIS: Recurrent miscarriages. Procedure: Hysteroscopy, dilation and curettage. Technical component performed at [facility], [address] [place] [address]. GROSS DESCRIPTION The specimen is received in formalin and consists of a 4x3x1 cm aggregate of pinkish olmstead soft tissue fragments and abundant blood coagulum. The specimen is entirely submitted in three cassettes. Dictated by:Leon Li MD TD:05/16/12 - 0801 [id number] MICROSCOPIC DESCRIPTION The specimen consists of abundant blood coagulum and some fragments of endometrium. The endometrium shows tubular glands with relatively frequent autophagic vacuoles. The stroma has a uniform and compact appearance although in some areas it does appear condensed. There are scattered prominent arterioles and fibrin aggregates in the stroma. Stromal plasma cells are not identified. A rare fragment of unremarkable stratified squamous epithelium is also noted. The stroma does have several lymphocytes in some fragments. Dictated by:Leon Li MD TD:05/16/12 - 1330 FSMDRLRG FINAL DIAGNOSIS Endometrium, curettings: Basalis endometrium with glandular and stromal breakdown. Dictated by: Leon Li MD TD:05/16/12 - 1556 FSPTHTAW Signed (electronic signature) Leon Li M.D. 05/16/12 1600 END OF REPORT Comment: , ,,,, Specimen Specimen of unknown material (specimen) Performing Organization Address City/State/Zipcode Ph one Number [facility] CLIA# [id number] [place] [address] PATHOLOGY CLIA# [id number] [place], [place] [address] [facility], SARAH [address] [place] [address] * HCG QUANTITATIVE, BLOOD (05/15/2012 7:45 AM SUBCONTRACT MANAGER) HCG QUANT, 1 mIU/ml [facility] BLOOD Comment: LABORATORY Expected Range for non SERVICES - [facility] female = 0-6 mIU/ml. BENITO Weeks Post [...] 3rd International Standard (3rd IS). TESHA MATTHEWS ACCT#[id number], ,,,, Specimen Blood specimen (specimen) Performing Organization Address City/State/[facility] Ph one Number [facility] CLIA# [id number] [place]HA [place] [address] [address] LABORATORY SERVICES CLIA# [id number] [place] [address] - [address] documented in this encounter Visit Diagnoses Diagnosis History of recurrent miscarriages, not currently Recurrent loss without curren t documented in this encounter Administered Medications Action Date Dose Rate Site Medication Order MAR Action 05/15/2012 7:59 AM SUBCONTRACT MANAGER 125 mL/hr lactated ringers solution New Bag IV, at 125 mL/hr, PRE-PROCEDURE CONTINUOUS, Starting Mon05/15/12 at 0730 , Until Mon05/15/12 at 1619, Routine, Pre-op documented in this encounter
--- OUTSIDE RECORDS SUMMARY | 2019-09-21 04:11 | XMS REPORT | Encounter Summary ---
Author Author [facility] Organization [facility] Address Unknown Phone Unavailable Care Team Providers Care Agent Name Role Phone Self, Lucius Heart MD PCP Encounter Details Care Team Description Date Type Department Leighann Ziegler Incomplete (Primary Dx) 04/18/2012 Orders Only [facility] [address] [place] [address] Social History Date Tobacco Use [...] * HCG QUANTITATIVE, BLOOD (05/02/2012 3:19 PM MD ALLERGY IMMUNOLOGY) HCG QUANT, 6 mIU/ml [facility] BLOOD Comment: LABORATORY Expected Range for non [...] the equivalent 3rd International Standard (3rd IS). CASSIEAR ACCT#[id number], ,,,, Specimen Blood specimen (specimen) Performing Organization Address City/State/[facility] Ph one Number [facility] CLIA# [id number] [place] [address] [address] LABORATORY SERVICES CLIA# [id number] [place] [address] - [address] documented in this encounter Visit Diagnoses Diagnosis Incomplete - Primary Legally unspecified , incomplet e, without mention of complication documented in this encounter
--- OUTSIDE RECORDS SUMMARY | 2019-09-21 04:11 | XMS REPORT | Encounter Summary ---
Author Author [facility] Organization [facility] Address Unknown Phone Unavailable Care Team Providers Care Belt Measurer Name Role Phone Self, Lucius Heart MD PCP Reason for Visit * Reason Comments Post Hospital Check Encounter Details Care Team Description Date Type Department Evangelista Marcos, DO [address] [place] [address] Postoperative follow-up (Primary Dx) 05/22/2012 Office Visit [facility] [address] [place] [address] Social History Date Tobacco Use [...] Signs Reading Time Taken Comments Vital Sign 100/58 05/22/2012 2:14 PM SKIMMER REVERBERATORY Blood Pressure - - Pulse 36.2 C (97.1 F) 05/22/2012 2:14 PM SKIMMER REVERBERATORY Temperature - - Respiratory Rate - - Oxygen Saturation - - Inhaled Oxygen Concentration 88 kg (194 lb) 05/22/2012 2:14 PM SKIMMER REVERBERATORY Weight - - Height 36.66 05/15/2012 7:37 AM SKIMMER REVERBERATORY Body Mass Index documented in this encounter Progress Notes * Evangelista Marcos DO - 05/22/2012 3:17 PM SKIMMER REVERBERATORY HISTORY OF PRESENT ILLNESS Opal Benavidez, a 22 y.o. female. HPI Ms. Benavidez presents to our office for her one week postoperative check after havi ng a Hysteroscopy/D & C. She denies any health concerns today. Admits to feeling good. REVIEW OF SYSTEMS Review of Systems No review of systems was done today. PHYSICAL EXAM BP 100/58 | Temp 97.1 F (36.2 C) | Wt 194 lb (87.998 kg) | LMP 05/12/2012 Physical Exam General appearance: active, alert, in no distress Abdomen: Soft, non-tender. Bowel sounds normal. No masses, no organomegaly. Neurologic: Alert and oriented X 3, normal strength and tone. Normal symmetric r eflexes. Normal coordination and gait ASSESSMENT and PLAN: 1. Postoperative follow-up (V67.00) Assessment: Postoperative Check Plan: Normal examination. May return to normal activities of daily living to i nclude sexual intercourse. Call with problems or questions. Pathology report w as reviewed--unremarkable. Hysteroscopy demonstrated synchiae formation. MER REVERBERATORY documented in this encounter Plan of Treatment Not on filedocumented as of this encounter Visit Diagnoses Diagnosis Postoperative follow-up - Primary Follow-up examination, following unspec ified surgery documented in this encounter"
--- OUTSIDE RECORDS SUMMARY | 2019-09-21 04:11 | XMS REPORT | Encounter Summary ---
Author Author [facility] Address Unknown Phone Unavailable Care Team Providers Care Humane Agent Name Role Phone Self, Lucius Heart MD PCP Reason for Visit * Auth/Cert Referred By Contact Referred To Contact Status Reason Specialty Diagnoses / Procedures [facility] Operating Room [address] [place] [address] Closed Diagnoses Recurrent Loss P rocedures HYSTEROSCOPY Encounter Details Care Team Description Date Type Department Evangelista Marcos, DO [address] [place] [address] 05/15/2012 [facility] F ort Encounter [facility] Pre Post Op [address] [place] [address] Social History Date Tobacco Use [...] Comments Vital Sign 106/64 05/15/2012 10:05 AM EYELET MACHINE OPERATOR Blood Pressure 60 05/15/2012 9:34 AM EYELET MACHINE OPERATOR Pulse 36.3 C (97.4 F) 05/15/2012 9:34 AM EYELET MACHINE OPERATOR Temperature 12 05/15/2012 10:05 AM EYELET MACHINE OPERATOR Respiratory Rate 100% 05/15/2012 10:05 AM EYELET MACHINE OPERATOR Oxygen Saturation - - Inhaled Oxygen Concentration 86.2 kg (190 lb) 05/15/2012 7:37 AM EYELET MACHINE OPERATOR Weight 154.9 cm (5' 1") 05/15/2012 7:37 AM EYELET MACHINE OPERATOR Height 35.9 05/15/2012 7:37 AM EYELET MACHINE OPERATOR Body Mass Index documented in this encounter Discharge Instructions * Patient Instructions* Venus Morales - 05/16/2012 1:51 PM EYELET MACHINE OPERATOR Electronically signed by Minh Reid Transcriptions Incoming at 3 1:51 PM EYELET MACHINE OPERATOR * Additional Instructions* Kassidy Hamilton RN - [...] severe problems, call the Emergency Room at [phone]. FOLLOW-UP:Dr. Marcos on May 22 at 2:15 [...] day or two. Any severe pain or target aircraft controller mping which persists after the first day [...] questions or problems call our office at [phone]. 11. Diet as tolerated. Start out with a light snack or small meal. 12. Rest today, resume normal activities kirsty. documented in this encounter Medications at Time of Discharge Start Date End Date Medication Sig Dispensed Refills 10/20/2010 05/29/2012 amphetamine-dextroampheta Take 1 Cap by 30 Cap 0 mine SR 24 hour (ADDERALL mouth daily XR) 30 mg Oral capsule utility accounts director for 30 days. documented as of this encounter H&P Notes * Hemant Evangelistaester Beckett DO - 05/15/2012 8:38 AM EYELET MACHINE OPERATOR HISTORY OF PRESENT ILLNESS Surekha Marcial, a 22 y.o. female. HPI Ms. Marcial presents to our office to schedule surgery, Hysteroscopy, for recurren t loss. She states that she isn't having any problems at this time. REVIEW OF SYSTEMS Review of Systems PmHx: Recurrent Loss PsHx: Gastric Bypass, x 1 Medications: None Allergies: Sulfa (Hives, stops breathing) PObHx: [id number]--4 , 2 spontaneous both at approximately 6 [...] reviewed. All questions were answered. Dr. Marcos ET MACHINE OPERATOR documented in this encounter OR Notes * OR Anesthesia - Venus Morales - 05/16/2012 1:51 PM EYELET MACHINE OPERATOR Electronically signed by Minh Reid Transcriptions Incoming at 3 1:51 PM EYELET MACHINE OPERATOR * OR Anesthesia - Delta Lewis CRNA - 05/15/2012 12:21 PM EYELET MACHINE OPERATOR Post Anesthesia Evaluation Note Anesthesia Type: General [...] 1005) Michael Lewis CRNA 05/15/2012; 12:21 PM ET MACHINE OPERATOR * Maite-OP - Annita Dougherty - 05/15/2012 9:47 AM EYELET MACHINE OPERATOR Monsels used by Dr. Marcos at end of case. ET MACHINE OPERATOR * Operative Report - Evangelista Marcos DO - 05/15/2012 9:37 AM EYELET MACHINE OPERATOR Hysteroscopy/D & C Pre-operative Diagnosis: Recurrent Loss [...] Disposition: Discharge to home when meets criteria ET MACHINE OPERATOR * OR Anesthesia - Delta Lewis CRNA - 05/15/2012 9:36 AM EYELET MACHINE OPERATOR Post Operative Anesthesia Note Patient: Surekha Marcial Medical record: [id number] Post: HYSTEROSCOPY, DILATATION AND CURETTAGE SUCTION Anesthesia Problems: No anesthesia problems/complications 05/15/2012, 9:38 AM Will LALITHA Lewis ET MACHINE OPERATOR * OR Anesthesia - Delta Lewis CRNA - 05/15/2012 9:09 AM EYELET MACHINE OPERATOR Subjective: 05/15/2012 , the patient and spouse were interviewed in the Pre-Op. Patient is a [age] y.o. female scheduled for Procedure(s): HYSTEROSCOPY DILATATION AND CURETTAGE SUCTION. Medical record [id number]. Patient Active Problem List Diagnoses Date Noted [...] of dilation @ 3 cm. Delivered in [place], [place] (rqt) Hx gastric bypass 01/11/12 gastric [...] a backup. Anesthesia guideline orders i nitiated. ET MACHINE OPERATOR documented in this encounter Miscellaneous Notes * Scanned Form - Scanning, Aok - 05/16/2012 1:51 PM EYELET MACHINE OPERATOR Electronically signed by Interface, Minh Aok Transcriptions Incoming at 3 1:51 PM EYELET MACHINE OPERATOR * Scanned Form - Scanning, Aok - 05/16/2012 1:51 PM EYELET MACHINE OPERATOR Electronically signed by Interface, Minh Aok Transcriptions Incoming at 3 1:51 PM EYELET MACHINE OPERATOR documented in this encounter Plan of Treatment Not on filedocumented as of this encounter Procedures Comments Procedure Name Priority Date/Time Associated Diag nosis PATHOLOGY Routine 05/15/2012 2:23 PM EYELET MACHINE OPERATOR DILATATION AND CURETTAGE 05/15/2012 History of r ecurrent SUCTION 8:40 AM EYELET MACHINE OPERATOR miscarriages, not currently HYSTEROSCOPY 05/15/2012 History of recurren t 8:40 AM EYELET MACHINE OPERATOR miscarriages, not currently HCG QUANTITATIVE, BLOOD Stat 05/15/2012 7:45 AM EYELET MACHINE OPERATOR documented in this encounter Results * PATHOLOGY (05/15/2012 2:23 PM EYELET MACHINE OPERATOR) SURGICAL Name: SUREKHA MARCIAL [facility] : PATHOLOGY 90 [facility]: F Unit#: [id number] Room/Bed: [facility] PRE-6 Ordering Physician: Evangelista Marcos D.O. RECD: 05/15/12 PROCEDURE DATE: 05/15/[address] [facility] [address]: Evangelista Marcos D.O. [facility] DR: ICD CODES: 626.2 PROCEDURES: [id number] LOCATION: [facility] EPIC MATERIAL SUBMITTED Endometrial curettings. CLINICAL DIAGNOSIS: Recurrent miscarriages. Procedure: Hysteroscopy, dilation and curettage. Technical component performed at [facility], [address] [place] [address]. GROSS DESCRIPTION The specimen is received in formalin and consists of a 4x3x1 cm aggregate of pinkish olmstead soft tissue fragments and abundant blood coagulum. The specimen is entirely submitted in three cassettes. Dictated by:Leon Li MD TD:05/16/12 - 0851 [id number] MICROSCOPIC DESCRIPTION The specimen consists of [...] Performing Organization Address City/State/Zipcode Ph one Number [facility] LABORATORY SERVICES CLIA# [id number] [place] [address] PATHOLOGY CLIA# [id number] [place], [place] [address] [facility], SARAH [address] [place] [address] * HCG QUANTITATIVE, BLOOD (05/15/2012 7:45 AM EYELET MACHINE OPERATOR) HCG QUANT, 1 mIU/ml [facility] BLOOD Comment: LABORATORY Expected Range for non SERVICES - [facility] female = 0-6 mIU/ml. BENITO Weeks Post [...] 3rd International Standard (3rd IS). TESHA MATTHEWS ACCT#[id number], ,,,, Specimen Blood specimen (specimen) Performing Organization Address City/State/[facility] Ph one Number [facility] CLIA# [id number] TESHA [place] [address] - [address] LABORATORY SERVICES CLIA# [id number] [place] [address] - [address] documented in this encounter Visit Diagnoses Diagnosis History of recurrent miscarriages, not currently Recurrent loss without curren t documented in this encounter Administered Medications Action Date Dose Rate Site Medication Order MAR Action 05/15/2012 7:59 AM EYELET MACHINE OPERATOR 125 mL/hr lactated ringers solution New Bag IV, at 125 mL/hr, PRE-PROCEDURE CONTINUOUS, Starting Mon05/15/12 at 0730 , Until Mon05/15/12 at 1619, Routine, Pre-op documented in this encounter
--- OUTSIDE RECORDS SUMMARY | 2019-09-21 04:11 | XMS REPORT | Encounter Summary ---
Author Author [facility] Organization [facility] Address Unknown Phone Unavailable Care Team Providers Care House Calls Nurse Name Role Phone Self, Lucius Heart MD PCP Encounter Details Care Team Description Date Type Department Evangelista Marcos, DO [address] [place] [address] [facility], Lab Schedule 04/05/2012 [facility] General Encounter Laboratory Services [address] [address] Social History Date Tobacco Use [...] mouth daily XR) 30 mg Oral capsule cosmetic manager for 30 days. documented as of this encounter Plan of Treatment Not on filedocumented as of this encounter Procedures Comments Procedure Name Priority Date/Time Associated Diag nosis URINE CULTURE Routine 04/04/2012 Pelvic pain in female 4:50 PM SOUP MIXER documented in this encounter Results * URINE CULTURE (04/04/2012 4:50 PM SOUP MIXER) URINE CULTURE NO GROWTH AFTER 2 DAYSComment: [facility] ACCT#[id number], ,,,, SERVICES - [place] Specimen Urine specimen (specimen) - Urine, clean catch Narrative Performed At PLEASE USE URINALYSIS FROM ER ON 04-04-12 [facility] PLEASE USE URINALYSIS FROM ER ON 04-04-12 [facility] PLEASE USE URINALYSIS FROM ER ON 04-04-12 [facility] Organization Address City/State/Zipcode Ph one Number [facility] LABORATORY SERVICES CLIA# [id number] TESHA GORDON [address] - [place] [address] [place] [address] LABORATORY SERVICES CLIA# [id number] TESHA [place] [address] - [place] [address] [place] [address] documented in this encounter Visit Diagnoses Diagnosis Pelvic pain in female Unspecified symptom associated with fem candi genital organs documented in this encounter
--- OUTSIDE RECORDS SUMMARY | 2019-09-21 04:12 | XMS REPORT | Encounter Summary ---
Author Author [facility] Organization [facility] Address Unknown Phone Unavailable Care Team Providers Care Inventory Associate Name Role Phone Self, Lucius Heart MD PCP Encounter Details Care Team Description Date Type Department Self, Lucius Heart MD [address] [place] [address] 01/16/2012 Abstract [facility] Primar y Care [place] [address] [place] [address] Social History Date Tobacco Use Types Packs/Day Years Used Quit: 04/06/2011 Current Every Day Smoker Cigarettes 0.25 5 Drinks/Week oz/Week Comments [...]
--- OUTSIDE RECORDS SUMMARY | 2019-09-21 04:12 | XMS REPORT | Encounter Summary ---
Author Author [facility] Organization [facility] Address Unknown Phone Unavailable Care Team Providers Care Gumming Machine Operator Name Role Phone Lucius Murry MD PCP Reason for Visit * Reason Comments Abdominal Pain c/o having abd pain after e ating since she had gastric by pass 2 mths ago per pt Encounter Details Care Team Description Date Type Department Lucius Murry MD [address] [place] [address] Epigastric pain (Primary Dx) 03/15/2012 Office Visit [facility] Primar y Care [place] [address] [place] [address] Social History Date Tobacco Use [...] Signs Reading Time Taken Comments Vital Sign 118/62 03/15/2012 8:52 AM CELLAR PUMPER Blood Pressure - - Pulse 36.4 C (97.5 F) 03/15/2012 8:52 AM CELLAR PUMPER Temperature - - Respiratory Rate - - Oxygen Saturation - - Inhaled Oxygen Concentration 95.7 kg (211 lb) 03/15/2012 8:52 AM CELLAR PUMPER Weight 157.5 cm (5' 2") 03/15/2012 8:52 AM CELLAR PUMPER Height 38.59 03/15/2012 8:52 AM CELLAR PUMPER Body Mass Index documented in this encounter Progress Notes * Lucius Murry MD - 03/15/2012 9:32 AM CELLAR PUMPER Chief Complaint Patient presents with Abdominal Pain c/o having abd pain after eating since she had gastric by pass 2 mths ago per pt HISTORY OF PRESENT ILLNESS Opal Benavidez, a 21 y.o. female. Epigastric Pain This is a new problem. Episode onset: 1 week. Episode frequency: after eating. T he problem has not changed since onset.The pain is associated with eating. The p ain is located in the epigastric region. The quality of the pain is burning. The pain is moderate. Associated symptoms comments: Intake of food or alcohol. The symptoms are aggravated by drinking alcohol and eating. Relieved by: no intake o f food. REVIEW OF SYSTEMS Review of Systems Gastrointestinal: Positive for abdominal pain. Patient states stomach ponce for 3-4 hours after eating or drinking protein rama es or alcohol and then subsides. PHYSICAL EXAM BP 118/62 | Temp 97.5 F (36.4 C) | Ht 5' 2" (1.575 m) | Wt 211 lb (95.709 kg ) | BMI 38.59 kg/m2 | LMP 02/22/2012 Physical Exam Constitutional: She is oriented to person, place, and time. She appears well-dev eloped and well-nourished. Cardiovascular: Normal rate, regular rhythm and normal heart sounds. Pulmonary/Chest: Effort normal and breath sounds normal. Abdominal: Soft. Bowel sounds are normal. There is tenderness (epigastric, mild) . Neurological: She is alert and oriented to person, place, and time. Skin: Skin is warm. Psychiatric: She has a normal mood and affect. ASSESSMENT and PLAN: 1. Epigastric pain (789.06) Orders Placed This Encounter omeprazole (PRILOSEC) 40 mg Oral CpDR Plan of care reviewed with patient in detail. Discussed probable production of acid by stomach and that PPI would likely help symptoms. If no improvement, pat ient to contact gastric bypass surgeon. Patient verbalized understanding and gilberto l call with concerns. AR PUMPER documented in this encounter Plan of Treatment Not on filedocumented as of this encounter Visit Diagnoses Diagnosis Epigastric pain - Primary Abdominal pain, epigastric documented in this encounter
--- OUTSIDE RECORDS SUMMARY | 2019-09-21 04:12 | XMS REPORT | Encounter Summary ---
Author Author [facility] Organization [facility] Address Unknown Phone Unavailable Care Team Providers Care Application Developer Manager Name Role Phone Self, Lucius Heart MD PCP Encounter Details Care Team Description Date Type Department Self, Lucius Heart MD [address] [place] [address] Anemia (Primary Dx) 12/19/2011 Orders Only [facility] Primar y Care [place] [address] [place] [address] Social History Date Tobacco Use [...] as of this encounter Visit Diagnoses Diagnosis Anemia - Primary Anemia, unspecified documented in this encounter
--- OUTSIDE RECORDS SUMMARY | 2019-09-21 04:12 | XMS REPORT | Encounter Summary ---
Author Author [facility] Organization [facility] Address Unknown Phone Unavailable Care Team Providers Care Medical Transport Specialist Name Role Phone Lucius Murry MD PCP Reason for Visit * Reason Comments Other pt is getting her tattoo li cense and needs STD lab work and Hep B series??? Encounter Details Care Team Description Date Type Department Lucius Murry MD [address] [place] [address] Well adult exam (Primary Dx) 11/07/2011 Office Visit [facility] Primar y Care [place] [address] [place] [address] Social History Date Tobacco Use [...] Reading Time Taken Comments Vital Sign 120/70 11/07/2011 2:30 PM CDT Blood Pressure - - Pulse - - Temperature - - Respiratory Rate - - Oxygen Saturation - - Inhaled Oxygen Concentration 109.8 kg (242 lb) 11/07/2011 2:30 PM CDT Weight 154.9 cm (5' 1") 11/07/2011 2:30 PM CDT Height 45.73 11/07/2011 2:30 PM CDT Body Mass Index documented in this encounter Progress Notes * Lucius Murry MD - 11/07/2011 2:57 PM CDT SUBJECTIVE: 21 y.o. female for employment related checkup. She obtains gyne exam, pap smear and breast care elsewhere. 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 Patient Active Problem List Diagnoses Date Noted Incomplete 06/13/2011 Anovulation 11/29/2010 ADD (attention deficit disorder) 08/06/2010 Obesity (BMI 30.0-39.9) Component Value Date CREATININE 0.8 02/09/2005 Component Value Date ALT 31 02/09/2005 AST 15 02/09/2005 Component Value Date CREATININE 0.8 02/09/2005 BUN 12.0 02/09/2005 SODIUM 137 02/09/2005 POTASSIUM 3.7 02/09/2005 CHLORIDE 103 02/09/2005 CO2 24.5 02/09/2005 Component Value Date WBC 9.87 06/12/2011 HEMOGLOBIN 12.8 06/12/2011 HEMATOCRIT 38.1 06/12/2011 PLATELETS 317 06/12/2011 MCV 87.2 06/12/2011 Component Value Date ALT 31 02/09/2005 AST 15 02/09/2005 ALKALINE PHOSPHATASE 114 02/09/2005 BILIRUBIN TOTAL 0.3 02/09/2005 Component Value Date TSH 2.17 05/18/2009 ROS: Feeling well, no complaints on review.. No dyspnea or chest pain on exerti on. No persisting cough. No abdominal pain, change in bowel habits, black or blo imani stools. No urinary tract symptoms. No skin complaints. No neurological comp laints. OBJECTIVE: The patient appears well, alert, oriented x 3, in no distress. BP 120/70 | Ht 5' 1" (1.549 m) | Wt 242 lb (109.77 kg) | BMI 45.73 kg/m2 | LMP 1 06/29/2010 ENT normal. Neck supple. No adenopathy or thyromegaly. ALEJO. Lungs are clear, good air entry, no wheezes, rhonchi or rales. S1 and S2 normal, no murmurs, regu lar rate and rhythm. Abdomen soft without tenderness, guarding, mass or organome dimas. Extremities show no edema, normal peripheral pulses. Neurological is fabrizio l, no focal findings. Skin shows no pathologic or suspicious lesions. Breast and pelvic exams are deferred at the patient's request. ASSESSMENT: Encounter Diagnosis Name Primary? Well adult exam Yes PLAN: Orders Placed This Encounter HIV ANTIBODY W/REFLX CONFIRMATION continue current healthy lifestyle patterns and return for routine annual checku ps. Testing for hiv; and confirming hep B immunizations for pt's employment. documented in this encounter Plan of Treatment Not on filedocumented as of this encounter Results * HIV ANTIBODY W/REFLX CONFIRMATION (11/07/2011 2:56 PM CDT) HIV-1 AB EIA NON-REACTIVE NON-REACTIVE [facility] Comment: LABORATORY A Nonreactive HIV-1/[address] [facility] result does not BENITO exclude HIV infection since the time frame for seroconversion is variable. If acute HIV infection is suspected, antibody retesting and nucleic acid amplification (HIV DNA/RNA) testing is recommended. Test performed at [facility] [address] [place] [address] Director: JIM PHILIP DO,MPH [facility], ,,,, Specimen Blood specimen (specimen) Performing Organization Address City/State/Zipcode Ph one Number [facility] LABOR[facility]ORY SERVICES CLIA# [id number] [place], [place] [address] [address] LABORATORY SERVICES CLIA# [id number] [place] [address] documented in this encounter Visit Diagnoses Diagnosis Well adult exam - Primary Routine general medical examination at a health care facility documented in this encounter
--- OUTSIDE RECORDS SUMMARY | 2019-09-21 04:12 | XMS REPORT | Encounter Summary ---
Author Author [facility] Organization [facility] Address Unknown Phone Unavailable Care Team Providers Care Program Aide Name Role Phone Self, Lucius Heart MD PCP Reason for Visit * Reason Comments Follow Up 5 MONTHS F/U CLOMID; REGULA R CYCLES PAST 3 MONTHS Encounter Details Care Team Description Date Type Department Evangelista Marcos DO [address] [place] [address] Infertility, female; Obesity 08/31/2011 [facility] [address] [place] [address] Social History Date Tobacco Use [...] Signs Reading Time Taken Comments Vital Sign 118/78 08/31/2011 10:48 AM CDT Blood Pressure - - Pulse 36 C (96.8 F) 08/31/2011 10:48 AM CDT Temperature - - Respiratory Rate - - Oxygen Saturation - - Inhaled Oxygen Concentration 108.9 kg (240 lb) 08/31/2011 10:48 AM CDT Weight 154.9 cm (5' 1") 08/31/2011 10:48 AM CDT Height 45.35 08/31/2011 10:48 AM CDT Body Mass Index documented in this encounter Progress Notes * Evangelista Marcos DO - 08/31/2011 11:05 AM CDT HISTORY OF PRESENT ILLNESS Opal Benavidez, a 21 y.o. female. HPI Ms. Benavidez presents to our office secondary to wanting to become . Has b een on Clomid for 5 months with no results. REVIEW OF SYSTEMS Review of Systems Review [...] ROS: negative for TIA or stroke symptoms PHYSICAL EXAM BP 118/78 | Temp(Src) 96.8 F (36 C) (Tympanic) | Ht 5' 1" (1.549 m) | Wt 240 lb (108.863 kg) | BMI 45.35 kg/m2 | LMP 08/10/2011 | ? No Physical Exam General appearance: active, alert, in no distress Neurologic: Alert and oriented X 3, normal strength and tone. Normal symmetric r eflexes. Normal coordination and gait ASSESSMENT and PLAN: 1. Infertility, female (628.9) XR HYSTEROSALPINGOGRAM 2. Obesity (278.00) Phentermine 37.5 mg Oral Cap Assessment: Infertility 2. Obesity Plan: We spent approximately 15 minutes in consultation on the aspect of becomi ng . We discussed in part Ms. Benavidez's weight, the integrity of her uter us and the quality of her 's semen. Phentermine 37.5 mg one tablet orall y one hour prior to breakfast daily (#30, 2 refills). Hysterosalpingogram order ed. Semen Analysis ordered. Return to office in 3 months. Call with problems or questions. documented in this encounter Plan of Treatment Not on filedocumented as of this encounter Results * XR HYSTEROSALPINGOGRAM (02/29/2012 9:40 AM CDT) Specimen Impressions Performed At IMPRESSION: Left hydrosalpinx. Normal right fallopian tube and INTERFACE SYSTEM endometrial cavity. Narrative Performed At [facility]: INTERFACE SYSTEM HISTORY: Infertility PROCEDURE: Speculum was placed into the vagina. The cervix was prepped with Betadine. [facility] catheter was placed through the endocervical canal into the endometrial cavity. Balloon wa s inflated. Contrast was injected. Catheter was removed. There w ere no complications. FINDINGS: The uterus appeared normal. T here is dilatation of the the proximal left fallopian tube with no de finite spill seen. This would be consistent with a hydrosalpinx. The right fallopian tube appeared normal and there was spill on the right . Procedure Note Deonte Haro MD - 02/29/2012 9:59 AM CDT [facility]: HISTORY: Infertility PROCEDURE: Speculum was placed into the vagina. The cervix was prepped with Betadine. [facility] catheter was placed through the endocervical canal into the endometrial cavity. Balloon was inflated. Contrast was injected. Catheter was removed. There were no complications. FINDINGS: The uterus appeared normal. There is dilatation of the the proximal left fallopian tube with no definite spill seen. This would be consistent with a hydrosalpinx. The right fallopian tube appeared normal and there was spill on the right. IMPRESSION IMPRESSION: Left hydrosalpinx. Normal right fallopian tube and endometrial cavity. Performing Organization Address City/State/Zipcode Ph one Number INTERFACE SYSTEM INTERFACE SYSTEM Refer to clinic/hospital department documented in this encounter Visit Diagnoses Diagnosis Infertility, female Female infertility of unspecified origi n Obesity Obesity, unspecified documented in this encounter
--- OUTSIDE RECORDS SUMMARY | 2019-09-21 04:12 | XMS REPORT | Encounter Summary ---
Author Author [facility] Organization [facility] Address Unknown Phone Unavailable Care Team Providers Care Applications Development Analyst Name Role Phone Self, Lucius Heart MD PCP Encounter Details Care Team Description Date Type Department Self, Lucius Heart MD [address] [place] [address] 01/11/2012 Abstract [facility] Primar y Care [place] [address] [place] [address] Social History Date Tobacco Use [...]
--- OUTSIDE RECORDS SUMMARY | 2019-09-21 04:12 | XMS REPORT | Encounter Summary ---
Author Author [facility] Organization [facility] Address Unknown Phone Unavailable Care Team Providers Care Fuel Distribution System Operator Name Role Phone Self, Lucius Heart MD PCP Reason for Visit * Reason Comments Medication Refill Encounter Details Care Team Description Date Type Department Anuja Contreras RN 03/26/[address] [address] Social History Date Tobacco Use [...]
--- OUTSIDE RECORDS SUMMARY | 2019-09-21 04:12 | XMS REPORT | Encounter Summary ---
Author Author [facility] Organization [facility] Address Unknown Phone Unavailable Care Team Providers Care Chief Administrative Officer Name Role Phone Self, Lucius Heart MD PCP Encounter Details Care Team Description Date Type Department Evangelista Marcos, DO [address] [place] [address] 02/29/2012 Hospital [facility] Se rvices Encounter [address] [address] Social History Date Tobacco Use [...] mouth daily XR) 30 mg Oral capsule speech therapist early intervention for 30 days. documented as of this encounter Miscellaneous Notes * Scanned Form - Aok Scanning, [employer] - 03/01/2012 1:55 PM CDT Electronically signed by Interface, Minh Aok Transcriptions Incoming at 2 1:55 PM CDT * Scanned Form - Aok Scanning, [employer] - 03/01/2012 1:55 PM CDT Electronically signed by Interface, Minh Aok Transcriptions Incoming at 2 1:55 PM CDT documented in this encounter Plan of Treatment Not on filedocumented as of this encounter Procedures Comments Procedure Name Priority Date/Time Associated Diag nosis XR HYSTEROSALPINGOGRAM Routine 02/29/2012 Jose Manuelti richard, female 9:40 AM CDT documented in this encounter Visit Diagnoses Not on filedocumented in this encounter Administered Medications Action Date Dose Rate Site Medication Order MAR Action 02/29/2012 9:43 AM CDT 10 mL Other (C omment) ioversol (OPTIRAY 320) 320 mg iodine/mL Given syringe 50 mL 50 mL, See Admin Instructions, INTRA-PROCEDURE ONCE, 1 dose, Starting Mon02/29/12 at 0942, Until Mon 2 at 0943 documented in this encounter
--- OUTSIDE RECORDS SUMMARY | 2019-09-21 04:12 | XMS REPORT | Encounter Summary ---
Author Author [facility] Organization [facility] Address Unknown Phone Unavailable Care Team Providers Care Group Manager Name Role Phone Self, Lucius Heart MD PCP Reason for Visit * Reason Comments Follow Up f/u hystogram Encounter Details Care Team Description Date Type Department Evangelista Marcos DO [address] [place] [address] Salpingitis; Anovulation; Encounter to discuss test results 03/02/2012 [facility] [address] [place] [address] Social History Date Tobacco Use [...] Signs Reading Time Taken Comments Vital Sign 120/62 03/02/2012 9:45 AM CDT Blood Pressure - - Pulse 37.2 C (99 F) 03/02/2012 9:45 AM CDT Temperature - - Respiratory Rate - - Oxygen Saturation - - Inhaled Oxygen Concentration 97.5 kg (215 lb) 03/02/2012 9:45 AM CDT Weight 157.5 cm (5' 2") 03/02/2012 9:45 AM CDT Height 39.32 03/02/2012 9:45 AM CDT Body Mass Index documented in this encounter Progress Notes * Evangelista Mracos DO - 03/02/2012 10:17 AM CDT HISTORY OF PRESENT ILLNESS Opal Benavidez, a 21 y.o. female. HPI Ms. Benavidez presents to our office to discuss results of her Hysterosalpingogram. It demonstrated a Hydrosalpinx. Ms. Benavidez is concerned about this affecting h er fertility. REVIEW OF SYSTEMS Review of Systems Review [...] TIA or stroke symptoms PHYSICAL EXAM BP 120/62 | Temp 99 F (37.2 C) | Ht 5' 2" (1.575 m) | Wt 215 lb (97.523 kg) | BMI 39.32 kg/m2 | LMP 02/22/2012 Physical Exam General appearance: active, alert, in no distress Neurologic: Alert and oriented X 3, normal strength and tone. Normal symmetric r eflexes. Normal coordination and gait ASSESSMENT and PLAN: 1. Salpingitis (614.2) clindamycin HCl (CLEOCIN) 300 mg Oral Cap 2. Anovulation (628.0) clomiPHENE citrate (CLOMID) 50 mg Oral tablet 3. Encounter to discuss test results (V65.49) Assessment: Hydrosalpinx (possible Salpingitis) 2. Anovulation 3. Test Result s Plan; Cleocin 300 mg one tablet orally every 6 hours for 10 days. Clomid 50 mg one tablet orally every day for 5 days. Repeat HSG in 6 months. Call with fur ther problems or questions. 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
--- OUTSIDE RECORDS SUMMARY | 2019-09-21 04:12 | XMS REPORT | Encounter Summary ---
Author Author [facility] Organization [facility] Address Unknown Phone Unavailable Care Team Providers Care Lan Manager Name Role Phone Self, Lucius Heart MD PCP Encounter Details Care Team Description Date Type Department Anuja Contreras RN Amenorrhea (Primary Dx) 03/26/2012 Orders Only [facility] [address] [place] [address] Social History Date Tobacco Use [...] this encounter Results * HCG QUANTITATIVE, BLOOD (03/26/2012 9:25 AM CELLOPHANE WORKER) HCG QUANT, 55 mIU/ml [facility] BLOOD Comment: LABORATORY Expected Range for non [facility] female = 0-6 mIU/ml. BENITO [...] 3rd International Standard (3rd IS). TESHA MATTHEWS ACCT#[id number], ,,,, Specimen Blood specimen (specimen) Performing Organization Address City/State/[facility] Ph one Number [facility] LABORATORY SERVICES CLIA# [id number] TESHA GORDON [address] - [place] [address] [place] [address] LABORATORY SERVICES CLIA# [id number] [place] [address] - [address] documented in this encounter Visit Diagnoses Diagnosis Amenorrhea - Primary Absence of menstruation documented in this encounter
--- OUTSIDE RECORDS SUMMARY | 2019-09-21 04:12 | XMS REPORT | Encounter Summary ---
Author Author [facility] Organization [facility] Address Unknown Phone Unavailable Care Team Providers Care Level Designer Name Role Phone Self, Lucius Heart MD PCP Reason for Visit * Reason Comments Dental Pain Encounter Details Care Team Description Date Type Department Tricia Sorensen, ELECTRIC DEICER ASSEMBLER [address] [address] [place] [address] Pain, dental (Primary Dx) 07/02/2011 Office Visit [address] [address] Social History Date Tobacco Use Types Packs/Day Years Used Quit: 04/06/2011 Former Smoker Cigarettes 1 5 Drinks/Week oz/Week Comments [...] Comments Vital Sign - - Blood Pressure 79 07/02/2011 8:58 PM SOURCING COORDINATOR Pulse 37.1 C (98.8 F) 07/02/2011 8:58 PM SOURCING COORDINATOR Temperature - - Respiratory Rate 98% 07/02/2011 8:58 PM SOURCING COORDINATOR Oxygen Saturation - - Inhaled Oxygen Concentration 108.9 kg (240 lb) 07/02/2011 8:58 PM SOURCING COORDINATOR Weight 154.9 cm (5' 1") 07/02/2011 8:58 PM SOURCING COORDINATOR Height 45.35 07/02/2011 8:58 PM SOURCING COORDINATOR Body Mass Index documented in this encounter Patient Instructions * Patient Instructions* Tricia Sorensen, ELECTRIC DEICER ASSEMBLER - 07/02/2011 9:09 PM SOURCING COORDINATOR [place]ian | [place] Patient Instructions Dental Pain: After Your Visit Your Care Instructions The most common cause of dental pain is tooth decay. It can also be caused by an infection of the tooth (abscess) or gum, a tooth that has not broken all the way through the gum (impacted tooth), or a problem with the nerve-filled center of the tooth. Follow-up care is a daniel part of your treatment and safety. Be sure to make and g o to all appointments, and call your doctor if you are having problems. Its a lso a good idea to know your test results and keep a list of the medicines you t brandon. How can you care for yourself at home? Contact a dentist for follow-up care. Put ice or a cold pack on the outside of your mouth for 10 to 20 minutes at a time to reduce pain and swelling. Put a thin cloth between the ice and your ski n. Take an qvgb-edd-uoborqc pain medicine, such as acetaminophen (Tylenol), ibup rofen (Advil, Motrin), or naproxen (Aleve). Read and follow all instructions on the label. Do not take two or more pain medicines at the same time unless the doctor isabella d you to. Many pain medicines have acetaminophen, which is Tylenol. Too much mustapha taminophen (Tylenol) can be harmful. Rinse your mouth with warm salt water every 2 hours to help relieve pain and swelling from an infected tooth. Mix 1 teaspoon of salt in 8 ounces of water. If your doctor prescribed antibiotics, take them as directed. Do not stop faustina ing them just because you feel better. You need to take the full course of antib iotics. When should you call for help? Call your doctor now or seek immediate medical care if: You have signs of infection, such as: Increased pain, swelling, warmth, or redness. Pus draining from the gum, tooth, or face. A fever. Watch closely for changes in your health, and be sure to contact your doctor if: You do not get better as expected. Where can you learn more? Go to www.[employer].com.[employer] in the Health Information search box Enter V264 in the search box to learn more about "Dental Pain: After Your Visit. " [id number] [employer]. Care instructions adapted under license jeff Mishra. [place] disclaims any warranty or liability for your use of this informat ion. This information is not intended to represent the ethical and nondenominational bel iefs of [place]. This care instruction is for use with your licensed healthcare pr ofatrium health. If you have questions about a medical condition or this instruction, always ask your healthcare professional. [employer] disclaims any warranty or liability for your use of this information. Content Version: 9.1.518128; Last Revised: August 30, 2010English | [place] Patient Instructions [place] Tooth Extraction: What to Expect at Home Your Recovery After your procedure, you may have some pain and swelling. You should feel sosa r in a few days. Your doctor can give you medicine for pain. Your doctor will remove the stitches after a few days, if needed. This care sheet gives you a general idea about how long it will take for you to recover. But each person recovers at a different pace. Follow the steps below to feel better as quickly as possible. How can you care for yourself at home? Activity Relax after surgery. Physical activity may increase bleeding. Do not lie flat. This may prolong bleeding. Prop up your head with pillows. Diet Eat soft foods, such as gelatin, pudding, or a thin soup. Gradually add solid foods to your diet as you heal. Do not use a straw for the first few days. Sucking on a straw can loosen the blood clot that forms at the surgery site. If this happens, it can delay healing . Medicines If your doctor prescribed antibiotics, take them as directed. Do not stop faustina ing them just because you feel better. You need to take the full course of antib iotics. Take pain medicines exactly as directed. If the doctor gave you a prescription medicine for pain, take it as prescribe d. If you are not taking a prescription pain medicine, ask your doctor if you ca n take an lxqw-fmi-mllspdv medicine. If you think your pain medicine is making you sick to your stomach: Take your medicine after meals (unless your doctor has told you not to). Ask your doctor for a different pain medicine. Incision care Bite gently on the gauze pad periodically, and change pads as they become soa ked with blood. Call your dentist or oral surgeon if you still have bleeding 24 hours after your surgery. While your mouth is numb, be careful not to bite the inside of your cheek or lip, or your tongue. After 24 hours, gently rinse your mouth with warm salt water several times a day to reduce swelling and relieve pain. Avoid rubbing the area with your tongue or touching it with your fingers. Continue to brush your teeth and tongue carefully. Ice and heat Try using an ice pack on the outside of your cheek for the first 24 hours. Yo u can use moist heatsuch as a washcloth soaked in warm water and wrung out for the following 2 or 3 days. Other instructions Do not smoke for at least 24 hours after your surgery. The sucking motion can loosen the clot and delay healing. In addition, smoking decreases the blood sup ply and can bring germs and contaminants to the surgery area. Follow-up care is a daniel part of your treatment and safety. Be sure to make and g o to all appointments, and call your doctor if you are having problems. It's als o a good idea to know your test results and keep a list of the medicines you faustina e. When should you call for help? Call your doctor now or seek immediate medical care if: You have pain that does not get better after you take pain medicine. You have signs of infection, such as: Increased pain, swelling, warmth, or redness. Red streaks leading from the cut (incision). Pus draining from the incision. A fever. Watch closely for any changes in your health, and be sure to contact your doctor if you have any problems. Where can you learn more? Go to www.[employer].com.[employer] in the Health Information search box Enter M214 in the search box to learn more about "[place] Tooth Extraction: What to Expect at Home." [id number] [employer]. Care instructions adapted under license b y [place]. [place] disclaims any warranty or liability for your use of this informat ion. This information is not intended to represent the ethical and nondenominational bel iefs of [facility]. This care instruction is for use with your licensed healthcare pr ofatrium health. If you have questions about a medical condition or this instruction, always ask your healthcare professional. [employer] disclaims any warranty or liability for your use of this information. Content Version: 9.1.965017; Last Revised: August 26, 2010 CING COORDINATOR documented in this encounter Progress Notes * Tricia Sorensen APRN - 07/02/2011 9:22 PM SOURCING COORDINATOR HISTORY OF PRESENT ILLNESS Opal Trimble, a 21 y.o. female. HPI Pt here with pain after having her wisdom teeth extracted this last week. She w as given pain medication and used it as directed but is now out. Her oral surge on will not refill her medication without seeing her and he is located in [facility]. REVIEW OF SYSTEMS Review of Systems HENT: Positive for dental problem. All other systems reviewed and are negative. PHYSICAL EXAM Pulse 79 | Temp 98.8 F (37.1 C) | Ht 5' 1" (1.549 m) | Wt 240 lb (108.863 kg ) | BMI 45.35 kg/m2 | SpO2 98% | LMP 04/28/2011 Physical Exam Vitals reviewed. Constitutional: Vital signs are normal. She appears well-developed and well-nour ished. She is active and cooperative. She does not have a sickly appearance. She does not appear ill. No distress. HENT: Mouth/Throat: Uvula is midline and oropharynx is clear and moist. Abnormal denti tion. No dental abscesses, uvula swelling or dental caries. Healing incision from wisdom teeth extraction Neurological: She is alert. ASSESSMENT and PLAN: 1. Pain, dental (525.9) HYDROcodone-acetaminophen (VICODIN) 5-500 mg Oral table t Rx for pain medication given #20 - will need to see her oral surgeon if she need s that refilled Follow instructions given by him Complete antibiotic prescribed by him CING COORDINATOR documented in this encounter Plan of Treatment Not on filedocumented as of this encounter Visit Diagnoses Diagnosis Pain, dental - Primary Unspecified disorder of the teeth and s upporting structures documented in this encounter
--- OUTSIDE RECORDS SUMMARY | 2019-09-21 04:12 | XMS REPORT | Encounter Summary ---
Author Author [facility] Organization [facility] Address Unknown Phone Unavailable Care Team Providers Care Jacquard Loom Carpet Weaver Name Role Phone Self, Lucius Heart MD PCP Encounter Details Care Team Description Date Type Department Anuja Contreras RN Amenorrhea (Primary Dx) 03/26/2012 Orders Only [facility] [address] [place] [address] Social History Date Tobacco Use [...] this encounter Results * HCG QUANTITATIVE, BLOOD (03/28/2012 9:52 AM MANAGER PRODUCE) HCG QUANT, 124 mIU/ml [facility] BLOOD Comment: LABORATORY Expected Range for non [facility] female = 0-6 mIU/ml. BENITO [...] 3rd International Standard (3rd IS). TESHA MATTHEWS ACCT#[id number], ,,,, Specimen Blood specimen (specimen) Performing Organization Address City/State/[facility] Ph one Number [facility] CLIA# [id number] TESHA GORDON [address] - [place] [address] [place] [address] LABORATORY SERVICES CLIA# [id number] [place] [address] - [address] documented in this encounter Visit Diagnoses Diagnosis Amenorrhea - Primary Absence of menstruation documented in this encounter
--- OUTSIDE RECORDS SUMMARY | 2019-09-21 04:12 | XMS REPORT | Encounter Summary ---
Author Author [facility] Organization [facility] Address Unknown Phone Unavailable Care Team Providers Care Development Expert Name Role Phone Self, Lucius Heart MD PCP Encounter Details Care Team Description Date Type Department Self, Lucius Heart MD [address] [place] [address] 07/05/2011 Abstract [facility] Primar y Care [place] [address] [place] [address] Social History Date Tobacco [...]
--- OUTSIDE RECORDS SUMMARY | 2019-09-21 04:12 | XMS REPORT | Encounter Summary ---
Author Author [facility] Organization [facility] Address Unknown Phone Unavailable Care Team Providers Care Administrative Hearing Officer Name Role Phone Self, Lucius Heart MD PCP Encounter Details Care Team Description Date Type Department Evangelista Marcos, DO [address] [place] [address] [facility], Lab Schedule 03/26/2012 [facility] Encounter Laboratory Services [address] [address] Social History Date Tobacco Use [...] Date End Date Medication Sig Dispensed Refills 03/26/2012 05/15/2012 progesterone micronized Take 1 Cap [...] mouth daily XR) 30 mg Oral capsule green building 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 documented as of this encounter Plan of Treatment Not on filedocumented as of this encounter Procedures Comments Procedure Name Priority Date/Time Associated Diag nosis HCG QUANTITATIVE, BLOOD Stat 03/26/2012 Amenor jairo 9:25 AM CAR DRIVER documented in this encounter Results * HCG QUANTITATIVE, BLOOD (03/26/2012 9:25 AM CAR DRIVER) HCG QUANT, 55 mIU/ml [facility] BLOOD Comment: LABORATORY Expected Range [...] the equivalent 3rd International Standard (3rd IS). CECILFORMERLY [facility] [place] ACCT#[id number], ,,,, Specimen Blood specimen (specimen) Performing Organization Address City/State/Zipcode Ph one Number [facility] LABORATORY SERVICES CLIA# [id number] [place], [place] [address] - [address] LABORATORY SERVICES CLIA# [id number] [place] [address] - [address] documented in this encounter Visit Diagnoses Diagnosis Amenorrhea Absence of menstruation documented in this encounter
--- OUTSIDE RECORDS SUMMARY | 2019-09-21 04:12 | XMS REPORT | Encounter Summary ---
Author Author [facility] Organization [facility] Address Unknown Phone Unavailable Care Team Providers Care Barrel Roller Operator Name Role Phone Self, Lucius Heart MD PCP Encounter Details Care Team Description Date Type Department Anuja Contreras RN Dysuria (Primary Dx) 04/04/2012 Orders Only [facility]- [place] [address] [place] [address] Social History Date Tobacco Use [...] filedocumented as of this encounter Results * URINALYSIS WITH REFLEX CULTURE (04/16/2012 9:44 AM AGRICULTURAL PRODUCTION ENGINEER) GLUCOSE UA Negative Negative mg/dl [facility] LABORATORY SERVICES - [place] BILIRUBIN UA Small (H) Negative [facility] LABORATORY SERVICES - [facility] [place] KETONES UA Negative Negative mg/dl [facility] LABORATORY SERVICES - [place] SPECIFIC 1.028 1.002 - 1.030 [facility] GRAVITY UA LABORATORY SERVICES - [place] PH UA 6.0 [facility] LABORATORY SERVICES - [place] PROTEIN UA 50 (H) Negative mg/dl [facility] LABORATORY SERVICES - [place] UROBILINOGEN UA 2.0 (H) 0.2 - 1.0 EU/dl [facility] LABORATORY SERVICES - [place] NITRITE UA Negative Negative [facility] LABORATORY SERVICES - [place] BLOOD UA Negative Negative [facility] LABORATORY SERVICES - [facility] [place] LEUKOCYTE Trace (H) Negative [facility] LABORATORY SERVICES - [place] COLOR UA Yellow [facility] LABORATORY SERVICES - [place] CLARITY UA Hazy [facility] LABORATORY SERVICES - [place] WBC UA 2-5 0 - 5 /HPF [facility] LABORATORY SERVICES - [place] RBC UA 0-2 0 - 5 /HPF [facility] LABORATORY SERVICES - [place] MUCOUS, URINE Heavy /LPF [facility] LABORATORY SERVICES - [place] EPITHELIAL 3+ squamous [facility] CELLS, URINE LABORATORY SERVICES - [place] CA OXALATE 1+Comment: CECIL-TESHA CEVALLOS Negative /HPF M ERCY CRYSTAL ACCT#[id number], ,,,, LABORATORY SERVICES - [place] Specimen Urine, clean catch Performing Organization Address City/State/Zipcode Ph one Number [facility] LABORATORY SERVICES CLIA# [id number] TESHA [place]ORD[place] [address] - [place] [address] [place] [address] LABORATORY SERVICES CLIA# [id number] [place] [address] - [place] [address] [place] [address] documented in this encounter Visit Diagnoses Diagnosis Dysuria - Primary documented in this encounter
--- OUTSIDE RECORDS SUMMARY | 2019-09-21 04:12 | XMS REPORT | Encounter Summary ---
Author Author [facility] Organization [facility] Address Unknown Phone Unavailable Care Team Providers Care Banquet Line Cook Name Role Phone Self, Lucius Heart MD PCP Encounter Details Care Team Description Date Type Department Evangelista Marcos, DO [address] [place] [address] [facility], Lab Schedule 09/12/2011 [facility] Encounter Laboratory Services [address] [address] Social History Date Tobacco Use [...] mouth daily XR) 30 mg Oral capsule cane weigher for 30 days. documented as of this encounter Plan of Treatment Not on filedocumented as of this encounter Procedures Comments Procedure Name Priority Date/Time Associated Diag nosis HCG QUANTITATIVE, BLOOD Stat 09/12/2011 Amenor jairo 11:58 AM CDT documented in this encounter Results * HCG QUANTITATIVE, BLOOD (09/12/2011 11:58 AM CDT) HCG QUANT, LESS THAN 1 mIU/ml [facility] BLOOD Comment: LABORATORY Expected Range for [...] the equivalent 3rd International Standard (3rd IS). [facility] ACCT#[id number], ,,,, Specimen Blood specimen (specimen) Performing Organization Address [facility] Ph one Number [facility] LABORATORY SERVICES CLIA# [id number] [place], [place] [address] [address] LABORATORY SERVICES CLIA# [id number] [place] [address] - [address] documented in this encounter Visit Diagnoses Diagnosis Amenorrhea Absence of menstruation documented in this encounter
--- OUTSIDE RECORDS SUMMARY | 2019-09-21 04:12 | XMS REPORT | Encounter Summary ---
Author Author [facility] Organization [facility] Address Unknown Phone Unavailable Care Team Providers Care Liquor Gallery Operator Name Role Phone Self, Lucius Heart MD PCP Reason for Visit * Reason Comments Sore Throat Encounter Details Care Team Description Date Type Department Aubrey Hooks, AZEEM NO ADDRESS ON FILE Sore throat (Primary Dx) 08/12/2011 Office Visit [facility] [address] [address] Social History Date Tobacco [...] Comments Vital Sign - - Blood Pressure 100 08/12/2011 10:33 PM CDT Pulse 36.7 C (98.1 F) 08/12/2011 10:33 PM CDT Temperature - - Respiratory Rate 97% 08/12/2011 10:33 PM CDT Oxygen Saturation - - Inhaled Oxygen Concentration 104.3 kg (230 lb) 08/12/2011 10:33 PM CDT Weight 154.9 cm (5' 1") 08/12/2011 10:33 PM CDT Height 43.46 08/12/2011 10:33 PM CDT Body Mass Index documented in this encounter Progress Notes * Aubrey Hooks APRN - 08/12/2011 10:54 PM CDT HISTORY OF PRESENT ILLNESS Opal Benavidez, a 21 y.o. female. HPI Presents with c/o sore throat, cough, and congestion present for the past week. She diagnosed herself with strep and took amoxicillin and an oral steroid on her own. Reports symptoms improved with steroid, but have returned. She states t hat she is not . She does take Benadryl at HS. REVIEW OF SYSTEMS Review of Systems Constitutional: Negative for fever. HENT: Positive for congestion, sore throat, rhinorrhea and postnasal drip. Negat sachin for sneezing and trouble swallowing. Respiratory: Positive for cough. Negative for wheezing. Gastrointestinal: Negative for nausea and vomiting. PHYSICAL EXAM Pulse 100 | Temp 98.1 F (36.7 C) | Ht 5' 1" (1.549 m) | Wt 230 lb (104.327 k g) | BMI 43.46 kg/m2 | SpO2 97% | LMP 04/28/2011 Physical Exam [nursing notereviewed. Constitutional: She is oriented to person, place, and time. She appears well-dev eloped and well-nourished. No distress. HENT: Head: Normocephalic and atraumatic. Right Ear: Tympanic membrane, external ear and ear canal normal. Left Ear: Tympanic membrane, external ear and ear canal normal. Nose: Mucosal edema and rhinorrhea present. No sinus tenderness. Right sinus exh ibits no maxillary sinus tenderness and no frontal sinus tenderness. Left sinus exhibits no maxillary sinus tenderness and no frontal sinus tenderness. Mouth/Throat: Uvula is midline and mucous membranes are normal. Posterior oropha ryngeal erythema present. No oropharyngeal exudate, posterior oropharyngeal kailyn a or tonsillar abscesses. Eyes: Pupils are equal, round, and reactive to light. Neck: Normal range of motion. Neck supple. C/O pain with palpation of neck. No adenopathy appreciated. Cardiovascular: Normal rate, regular rhythm and normal heart sounds. Exam revea ls no gallop and no friction rub. No murmur heard. Pulmonary/Chest: Effort normal and breath sounds normal. No stridor. No respirat ory distress. She has no decreased breath sounds. She has no wheezes. She has no rhonchi. She has no rales. She exhibits no tenderness. Lymphadenopathy: She has no cervical adenopathy. Neurological: She is alert and oriented to person, place, and time. Skin: Skin is warm and dry. She is not diaphoretic. Appointment on 08/12/11 (from the past 24 hour(s)) RAPID STREP SCREEN WITH REFLEX CULTURE Collection Time 08/12/11 10:45 PM Component Value Range RAPID STREP SCREEN WITH REFLEX CULTURE STREP SCREEN: NEGATIVE FOR GROUP A STREP TOCOCCUS ASSESSMENT and PLAN: 1. Sore throat (462) RAPID STREP SCREEN WITH REFLEX CULTURE Symptomatic care suggested. Add antihistamine in the morning. Fluids. Rest. Follow up with primary care as needed or if not improving as anticipated or if c ondition worsens. Pt agrees with plan of care and has no questions at this time . documented in this encounter Plan of Treatment Not on filedocumented as of this encounter Results * RAPID STREP SCREEN WITH REFLEX CULTURE (08/12/2011 10:45 PM CDT) RAPID STREP STREP SCREEN: NEGATIVE FOR CECIL SCREEN WITH GROUP A STREPTOCOCCUSComment: LABORAT ORSariah REFLEX CULTURE CECIL-TESHA CEVALLOS SERVICES - [facility] [place]#[id number], ,,,, BEN[place] Specimen Respiratory sample (specimen) - Throat Performing Organization Address City/State/[facility] Ph one Number [facility] LABORATORY SERVICES CLIA# [id number] [place], [place] [address] - [address] LABORATORY SERVICES CLIA# [id number] [place] [address] - [address] documented in this encounter Visit Diagnoses Diagnosis Sore throat - Primary Acute pharyngitis documented in this encounter
--- OUTSIDE RECORDS SUMMARY | 2019-09-21 04:12 | XMS REPORT | Encounter Summary ---
Author Author [facility] Organization [facility] Address Unknown Phone Unavailable Care Team Providers Care Project Officer Name Role Phone Self, Lucius Heart MD PCP Reason for Visit * Reason Comments Medication Refill Encounter Details Care Team Description Date Type Department Anuja Contreras RN 08/08/[address] [address] Social History Date Tobacco Use [...]
--- OUTSIDE RECORDS SUMMARY | 2019-09-21 04:12 | XMS REPORT | Encounter Summary ---
Author Author [facility] Organization [facility] Address Unknown Phone Unavailable Care Team Providers Care Garment Patternmaker Name Role Phone Self, Lucius Heart MD PCP Encounter Details Care Team Description Date Type Department Evangelista Marcos, DO [address] [place] [address] [facility], Lab Schedule 03/28/2012 [facility] Encounter Laboratory Services [address] [address] Social History Date Tobacco Use [...] daily XR) 30 mg Oral capsule early interventionist for 30 days. documented as of this encounter Plan of Treatment Not on filedocumented as of this encounter Procedures Comments Procedure Name Priority Date/Time Associated Diag nosis HCG QUANTITATIVE, BLOOD Stat 03/28/2012 Amenor jairo 9:52 AM ELEMENTARY SCHOOL BAND DIRECTOR documented in this encounter Results * HCG QUANTITATIVE, BLOOD (03/28/2012 9:52 AM ELEMENTARY SCHOOL BAND DIRECTOR) HCG QUANT, 124 mIU/ml [facility] BLOOD Comment: LABORATORY Expected Range for [...] the equivalent 3rd International Standard (3rd IS). [facility], [place] ACCT#[id number], ,,,, Specimen Blood specimen (specimen) Performing Organization Address City/State/Zipcode Ph one Number [facility] LABORATORY SERVICES CLIA# [id number] [facility] [place] [address] [address] LABORATORY SERVICES CLIA# [id number] [place] [address] - [address] documented in this encounter Visit Diagnoses Diagnosis Amenorrhea Absence of menstruation documented in this encounter
--- OUTSIDE RECORDS SUMMARY | 2019-09-21 04:12 | XMS REPORT | Encounter Summary ---
Author Author [facility] Organization [facility] Address Unknown Phone Unavailable Care Team Providers Care Internal Revenue Agent Name Role Phone Self, Lucius Heart MD PCP Encounter Details Care Team Description Date Type Department Evangelista Marcos, DO [address] [place] [address] [facility], Generic Radiologist Canceled (Patient Requested) 09/02/2011 [facility] rv[facility] Encounter [place] [address] [place] [address] Social History Date Tobacco Use [...] mouth daily XR) 30 mg Oral capsule equine intern for 30 days. documented as of this encounter Plan of Treatment Not on filedocumented as of this encounter Procedures Comments Procedure Name Priority Date/Time Associated Diag nosis XR HYSTEROSALPINGOGRAM Routine 02/29/2012 Inferti lity, female 9:40 AM CDT documented in this encounter Results * XR HYSTEROSALPINGOGRAM (02/29/2012 [...] female Female infertility of unspecified origi n documented in this encounter
--- OUTSIDE RECORDS SUMMARY | 2019-09-21 04:12 | XMS REPORT | Encounter Summary ---
Author Author [facility] Organization [facility] Address Unknown Phone Unavailable Care Team Providers Care District Customs Director Name Role Phone Self, Lucius Heart MD PCP Reason for Visit * Reason Comments Sore Throat Going on two weeks and hasn 't got better still having a sore throat and it hurts to talk. Encounter Details Care Team Description Date Type Department Fort MillTricia, DIRECTOR DIGITAL CATALOGUE [address] [address] [place] [address] Tonsillitis with exudate (Primary Dx) 08/14/2011 Office Visit [facility] [address] [address] Social History Date Tobacco [...] Comments Vital Sign - - Blood Pressure 102 08/14/2011 8:00 PM CDT Pulse 37.6 C (99.7 F) 08/14/2011 8:00 PM CDT Temperature - - Respiratory Rate 99% 08/14/2011 8:00 PM CDT Oxygen Saturation - - Inhaled Oxygen Concentration 104.3 kg (230 lb) 08/14/2011 8:00 PM CDT Weight 154.9 cm (5' 1") 08/14/2011 8:00 PM CDT Height 43.46 08/14/2011 8:00 PM CDT Body Mass Index documented in this encounter Patient Instructions * Patient Instructions* Tricia Sorensen, DIRECTOR DIGITAL CATALOGUE - 08/14/2011 8:31 PM CDT Setswana | Greek [place] Patient Instructions Tonsillitis: After Your Visit Your Care Instructions Tonsillitis is an infection of the tonsils that is caused by bacteria or a virus . The tonsils are in the back of the throat and are part of the immune system. T onsillitis typically lasts from a few days up to a couple of weeks. Tonsillitis caused by a virus usually goes away on its own. Bacterial tonsilliti s is treated with antibiotics. You and your doctor may consider surgery to remov e the tonsils (tonsillectomy) if you or your child has serious complications or repeat infections. Follow-up care is a daniel part of your treatment and safety. Be sure to make and g o to all appointments, and call your doctor if you are having problems. Its a lso a good idea to know your test results and keep a list of the medicines you t brandon. How can you care for yourself at home? If your doctor prescribed antibiotics, take them as directed. Do not stop faustina ing them just because you feel better. You need to take the full course of antib iotics. Gargle with warm salt water to help reduce swelling and relieve discomfort. G argle once an hour with 1 teaspoon of salt mixed in 8 fluid ounces of warm water . Take an usnd-hmb-luqduxn pain medicine, such as acetaminophen (Tylenol), ibup rofen (Advil, Motrin), or naproxen (Aleve). Read and follow all instructions on the label. No one younger than 20 should take aspirin. It has been linked to Rocco e syndrome, a serious illness. Be careful when taking fwwv-zly-ctxgsba cold or flu medicines and Tylenol at the same time. Many of these medicines have acetaminophen, which is Tylenol. [place] d the labels to make sure that you are not taking more than the recommended dose . Too much acetaminophen (Tylenol) can be harmful. An wwfn-bwi-btdncuy throat spray may help relieve throat pain. Drink plenty of fluids. Fluids may help soothe an irritated throat. Drink war m or cool liquids (whichever feels better). These include tea, soup, and juice. Get lots of rest. Do not smoke, and avoid secondhand smoke. Smoking can make tonsillitis worse. If you need help quitting, talk to your doctor about stop-smoking programs and medicines. These can increase your chances of quitting for good. Use a vaporizer or humidifier to add moisture to your bedroom. Follow the dir ections for cleaning the machine. When should you call for help? Call your doctor now or seek immediate medical care if: Your pain gets worse on one side of your throat. You have a new or higher fever. You notice changes in your voice. You have trouble opening your mouth. You have any trouble breathing. You have trouble swallowing. You have a fever with a stiff neck or a severe headache. You are sensitive to light or feel very sleepy or confused. Watch closely for changes in your health, and be sure to contact your doctor if: You do not get better after 2 days. Where can you learn more? Go to www.[employer] in the Health Information search box Enter M655 in the search box to learn more about "Tonsillitis: After Your Visit. " [id number] [employer]. Care instructions adapted under license b lety Mishra. [place] disclaims any warranty or liability for your use of this informat ion. This information is not intended to represent the ethical and yazidi bel iefs of [place]. This care instruction is for use with your licensed healthcare [facility]. If you have questions about a medical condition or this instruction, always ask your healthcare professional. [employer] disclaims any warranty or liability for your use of this information. Content Version: 9.2.435250; Last Revised: May 28, 2010 documented in this encounter Progress Notes * Tricia Sorensen APRN - 08/14/2011 8:29 PM CDT HISTORY OF PRESENT ILLNESS Opal Benavidez, a 21 y.o. female. HPI Pt here with sore throat that is not resolving. Was seen two nights ago. Negat sachin rapid strep. Has been running a fever and has severe sore throat that is ma steven it difficult to swallow. REVIEW OF SYSTEMS Review of Systems Constitutional: Positive for fever. HENT: Positive for sore throat. [all other systems reviewed and are negative PHYSICAL EXAM Pulse 102 | Temp(Src) 99.7 F (37.6 C) (Tympanic) | Ht 5' 1" (1.549 m) | Wt 2 30 lb (104.327 kg) | BMI 43.46 kg/m2 | SpO2 99% | LMP 04/28/2011 | ? Unknown Physical Exam [vitalsreviewed. Constitutional: She appears well-developed and well-nourished. She is active and cooperative. She has a sickly appearance. She appears ill. No distress. HENT: Head: Normocephalic and atraumatic. Mouth/Throat: Uvula is midline and mucous membranes are normal. Posterior oropha ryngeal edema, posterior oropharyngeal erythema and tonsillar abscesses (2+ with white exudate) present. Eyes: Conjunctivae, EOM and lids are normal. Pupils are equal, round, and reacti ve to light. Lymphadenopathy: Head (right side): Submandibular and tonsillar adenopathy present. No subme ntal, no preauricular, no posterior auricular and no occipital adenopathy presen t. Head (left side): Submandibular and tonsillar adenopathy present. No submen keo, no preauricular, no posterior auricular and no occipital adenopathy present . She has no cervical adenopathy. Very tender to palpation of nodes marked. Minimal enlargement noted. Neurological: She is alert. Skin: Skin is warm and dry. No rash noted. ASSESSMENT and PLAN: 1. Tonsillitis with exudate (463) azithromycin (ZITHROMAX) 250 mg Oral tablet Reviewed rapid strep and culture results - showed no growth for Group A only - c alled lab to confirm that strep culture was only for Group A which they confirme d Rx as above New toothbrush after on antibiotic for 24 hours Salt water gargles, Cepacol and Chloraseptic for sore throat Tylenol and ibuprofen for pain and fever Keep appt in the morning with PCP documented in this encounter Plan of Treatment Not on filedocumented as of this encounter Visit Diagnoses Diagnosis Tonsillitis with exudate - Primary Acute tonsillitis documented in this encounter
--- OUTSIDE RECORDS SUMMARY | 2019-09-21 04:12 | XMS REPORT | Encounter Summary ---
Author Author [facility] Organization [facility] Address Unknown Phone Unavailable Care Team Providers Care Log Chain Worker Name Role Phone Self, Lucius Heart MD PCP Encounter Details Care Team Description Date Type Department Anuja Contreras RN Amenorrhea (Primary Dx) 09/12/2011 Orders Only [facility] [address] [place] [address] Social History Date Tobacco Use [...] QUANT, LESS THAN 1 mIU/ml [facility] BLOOD Comment: LABORATORY Expected Range for non [facility] female = 0-6 mIU/ml. [...] 3rd International Standard (3rd IS). TESHA MATTHEWS ACCT#[id number], ,,,, Specimen Blood specimen (specimen) Performing Organization Address City/State/[facility] Ph one Number [facility] LABORATORY SERVICES CLIA# [id number] TESHA GORDON [address] - [place] [address] [place] [address] LABORATORY SERVICES CLIA# [id number] [place] [address] - [address] documented in this encounter Visit Diagnoses Diagnosis Amenorrhea - Primary Absence of menstruation documented in this encounter
--- OUTSIDE RECORDS SUMMARY | 2019-09-21 04:12 | XMS REPORT | Encounter Summary ---
Author Author [facility] Organization [facility] Address Unknown Phone Unavailable Care Team Providers Care Budget Examiner Name Role Phone Self, Lucius Heart MD PCP Encounter Details Care Team Description Date Type Department Evangelista Marcos, DO [address] [place] [address] 03/24/[address] [facility] Emergency Department [address] [address] Social History Date Tobacco Use [...] Date End Date Medication Sig Dispensed Refills 03/02/2012 05/15/2012 clomiPHENE citrate Take 1 Tab [...] mouth daily XR) 30 mg Oral capsule erp pm for 30 days. documented as of this encounter ED Notes * Christian Kang RN - 03/24/2012 9:25 PM REFRIGERATOR REPAIRMAN Pt was taken to the consult room after speaking to on the phone patient was visably upset about not being able to get " a shot" to stop her from having a miscarriage. After giving the patient some information and talking to her abo ut resting and just focusing on taking care of herself the rest will work itself out and she stated that was a good idea and was going to call on Monday to see . IGERATOR REPAIRMAN documented in this encounter Plan of Treatment Not on filedocumented as of this encounter Visit Diagnoses Not on filedocumented in this encounter
--- OUTSIDE RECORDS SUMMARY | 2019-09-21 04:12 | XMS REPORT | Encounter Summary ---
Author Author [facility] Organization [facility] Address Unknown Phone Unavailable Care Team Providers Care Php Software Engineer Name Role Phone Self, Lucius Heart MD PCP Encounter Details Care Team Description Date Type Department Self, Lucius Heart MD [address] [place] [address] [facility], Lab Schedule 11/07/2011 [facility] Encounter Laboratory Services [place] [address] [place] [address] Social History Date Tobacco Use [...] mouth daily XR) 30 mg Oral capsule dyer and washer for 30 days. documented as of this encounter Miscellaneous Notes * Scanned Form - Aok Scanning, [facility] - 11/08/2011 1:41 PM CDT Electronically signed by Jeanette, Minh Donovan Transcriptions Incoming at 2 1:41 PM CDT documented in this encounter Plan of Treatment Not on filedocumented as of this encounter Procedures Comments Procedure Name Priority Date/Time Associated Diag nosis HIV DETECTION W/REFLX Routine 11/07/2011 Well bam lt exam CONFIRMATION 2:56 PM CDT documented in this encounter Results * HIV ANTIBODY W/REFLX CONFIRMATION (11/07/2011 2:56 PM CDT) HIV-1 AB EIA NON-REACTIVE NON-REACTIVE [facility] Comment: LABORATORY A Nonreactive HIV-1/2 antibody [facility] result does not BENITO exclude HIV infection since the time frame for seroconversion is variable. If acute HIV infection is suspected, antibody retesting and nucleic acid amplification (HIV DNA/RNA) testing is recommended. Test performed at [facility] [address] [place] [address] Director: JIM PHILIP DO,MPH [employer], ,,,, Specimen Blood specimen (specimen) Performing Organization Address City/State/Zipcode Ph one Number [facility] CLIA# [id number] [place] [address] [address] LABORATORY SERVICES CLIA# [id number] [place] [address] - [address] documented in this encounter Visit Diagnoses Diagnosis Well adult exam Routine general medical examination at a health care facility documented in this encounter
--- OUTSIDE RECORDS SUMMARY | 2019-09-21 04:13 | XMS REPORT | Encounter Summary ---
Author Author [facility] Organization [facility] Address Unknown Phone Unavailable Care Team Providers Care Pay Agent Name Role Phone Self, Lucius Heart MD PCP Reason for Visit * Reason Comments Well Woman Exam Abdominal Cramping "all the time" Vaginal Discharge Encounter Details Care Team Description Date Type Department Evangelista Marcos, DO [address] [place] [address] Routine gynecological examination (Prima ry Dx); Vaginal discharge; BV (bacterial vaginosis); Candidal vaginitis; Family planning 07/16/2010 Office Visit [facility] [address] [place] [address] Social History Date Tobacco Use Types Packs/Day Years Used Current Every Day Smoker Cigarettes 0.5 5 Drinks/Week oz/Week Comments Alcohol Use No Sex Assigned at Date Recorded Not on file Industry Job Start Date Occupation Not on file Not on file Not on file Travel End Travel History Travel Start No recent travel history available. documented as of this encounter Last Filed Vital Signs Reading Time Taken Comments Vital Sign 120/62 07/16/2010 10:10 AM STEAM DISTRIBUTION SUPERVISOR Blood Pressure - - Pulse 37.4 C (99.3 F) 07/16/2010 10:10 AM STEAM DISTRIBUTION SUPERVISOR Temperature - - Respiratory Rate - - Oxygen Saturation - - Inhaled Oxygen Concentration 104.3 kg (230 lb) 07/16/2010 10:10 AM STEAM DISTRIBUTION SUPERVISOR Weight 157.5 cm (5' 2") 07/16/2010 10:10 AM STEAM DISTRIBUTION SUPERVISOR Height 42.07 07/16/2010 10:10 AM STEAM DISTRIBUTION SUPERVISOR Body Mass Index documented in this encounter Progress Notes * Evangelista Marcos, DO - 07/16/2010 11:51 AM STEAM DISTRIBUTION SUPERVISOR HISTORY OF PRESENT ILLNESS Opal Leblanc, a 20 y.o. female. HPI Ms. Leblanc presents to our office for her annual well woman examination. She c omplains of vaginal discharge and discomfort. Also, there is pain around her in cision site. REVIEW OF SYSTEMS ROS Review of Systems - General ROS: negative for weight changes, fever Psychological ROS: negative for anxiety or depressive symptoms Respiratory ROS: negative for cough, shortness of breath, or wheezing Cardiovascular ROS: negative for chest pain or dyspnea on exertion Gastrointestinal ROS: negative for reflux, abdominal pain, change in bowel habit s, or black or bloody stools Genito-Urinary ROS: negative for dysuria, trouble voiding, or hematuria Neurological ROS: negative for TIA or stroke symptoms PHYSICAL EXAM BP 120/62 | Temp 99.3 F (37.4 C) | Ht 5' 2" (1.575 m) | Wt 230 lb (104.327 k g) | BMI 42.07 kg/m2 | LMP 06/28/2010 Physical Exam General appearance: active, alert, in no distress Head: atraumatic, Normocephalic, without obvious abnormality Eyes: conjunctivae/corneas clear. PERRL, EOM's intact. Ears: normal TM's and external ear canals AU Nose: Nares normal. Septum midline. Mucosa normal. No drainage or sinus tenderne ss. Throat: Lips, mucosa (moist), and tongue normal. Teeth and gums normal Neck: supple, symmetrical, trachea midline and no adenopathy Lungs: clear to auscultation bilaterally, normal respiratory effort Breasts: normal appearance, no masses or tenderness, No nipple retraction or dim pling, No nipple discharge or bleeding, No axillary or supraclavicular adenopath y Heart: normal rate, regular rhythm, normal S1, S2, no murmurs, rubs, clicks or g allops Abdomen: Soft, non-tender. Bowel sounds normal. No masses, no organomegaly. Pelvic: External genitalia normal, Vagina normal with moderate yellow green disc harge, cervix normal in appearance, no CMT, uterus normal size, shape, and consi stency, no adnexal masses or tenderness, rectovaginal septum normal Extremities: extremities normal, atraumatic, no cyanosis or edema, intact distal pulses, moves all extremities equally, no edema, redness or tenderness in the c badillo or thighs, normal strength, normal tone Neurologic: Alert and oriented X 3, normal strength and tone. Normal symmetric r eflexes. Normal coordination and gait ASSESSMENT and PLAN: Encounter Diagnoses 1. Routine gynecological examination (V72.31) CERV/VAG CYTOPATH, SUREPATH W/RFL X HPV, CO SPECIMEN HANDLING,DR OFF->LAB 2. Vaginal discharge (623.5A) GC AND CHLAMYDIA DNA DETECTION 3. BV (bacterial vaginosis) (616.10BB) metroNIDAZOLE (FLAGYL) 500 mg Oral table t, cefTRIAXone (ROCEPHIN) 500 mg Injection SolR, CEFTRIAXONE SODIUM 500 MG INJEC TION, lidocaine PF 1% (XYLOCAINE MPF) 10 mg/mL (1 %) Injection Soln, LIDOCAINE ( PF) 1 % (10 MG/ML) INJECTION 4. Candidal vaginitis (112.1AZ) fluconazole (DIFLUCAN) 200 mg Oral tablet 5. Family planning (V25.09B) Drospirenone-Ethinyl estradiol (GIA 28) 3-20 mg-mc g Oral tablet Assessment: Annual Well Woman Examination 2. Vaginal Discharge 3. Family Plan karley 4. Bacterial Vaginosis 5. Candidal Vaginitis Plan: Pap Smear, breast examination, full body physical. Gen Probe pending. R ocephin 250 mg intramuscularly x 1 dose. Flagyl 500 mg one tablet orally every 8 hours for 7 days. Diflucan 200 mg one tablet orally every 48 hours (#3). We will contact Ms. Leblanc with her test results once we obtain them. M DISTRIBUTION SUPERVISOR documented in this encounter Plan of Treatment Not on filedocumented as of this encounter Procedures Comments Procedure Name Priority Date/Time Associated Diag nosis CERV/VAG CYTOPATH, Routine 07/19/2010 Routine roller shop utility worker ecological SUREPATH W/RFLX HPV 12:20 PM CDT examination documented in this encounter Results * CERV/VAG CYTOPATH, SUREPATH W/RFLX HPV (07/19/2010 12:20 PM CDT) CERVICAL OR Name: OPAL LEBLANC T VAGINAL : 90 PATHOL OGY CYTOPATH PAP Location: [facility] OB CONSULTAN SARAH ROJAS SMEAR Sex: F Unit#: [id number] Room/Bed: Att: Evangelista Fletcher D.O. RECD: 07/19/10 PROCEDURE DATE: 07/16/[address] [facility] [address]: Evangelista Marcos D.O. OT DR: PROCEDURES: . LOCATION: [facility] EPIC Specimen Type: Liquid based cytology. Specimen Source: Cervical/endocervical. Pertinent History: Healthy. Onset of LMP: 06/28/10. Date of Last Pap: No information received. Results of Previous Pap: No information received. Risk Factors for Cervical/Endocervical Cancer: No information received. INTERPRETATION/RESULTS NEGATIVE FOR INTRAEPITHELIAL LESION OR MALIGNANCY. Hormonal Evaluation: Slight estrogen effect is present. Specimen Adequacy: Satisfactory for evaluation. Endocervical/transformation zone component is present. Signed (electronic signature) Nic Henry, [place] [facility] 07/19/10 1551 END OF REPORT Comment: , ,,,, Specimen Endocervical Performing Organization Address City/State/Zipcode Ph one Number [facility] CLIA# [id number] [place], [place] [address] - MANUEL OLIVER [address] [place] [address] PATHOLOGY CLIA# [id number] [place], [place] [address] [facility], SARAH [address] [place] [address] * GC AND CHLAMYDIA DNA DETECTION (07/16/2010 12:00 AM STEAM DISTRIBUTION SUPERVISOR) [facility] CHLAMYDIA DNA NOT DETECTED NOT DETECTED [facility] GC DNA NOT DETECTED NOT DETECTED [facility] GC AND SEE NOTE () [facility] CHLAMYDIA PROBE Comment: [facility]UEL [facility]IE[facility] This test was performed using BENITO BOURGEOIS the BD ProbeTec(TM) ET Chlamydia trachomatis and Neisseria gonorrhoeae Amplified DNA Assays. Test performed at [facility] [address] [place] [address] Director: JIM PHILIP DO,MPH [facility], ,,,, Specimen Specimen from genital system (specimen) - Endocervical Performing Organization Address City/State/Zipcode Ph one Number [facility] CLIA# [id number] [place] [address] - MANUEL OLIVER [address] [place] [address] CLIA# [id number] [place] [address] documented in this encounter Visit Diagnoses Diagnosis Routine gynecological examination - Areli reny Vaginal discharge Leukorrhea, not specified as infective BV (bacterial vaginosis) Vaginitis and vulvovaginitis, unspecifi ed Candidal vaginitis Candidiasis of vulva and vagina Family planning Other general counseling and advice for contraceptive management documented in this encounter
--- OUTSIDE RECORDS SUMMARY | 2019-09-21 04:13 | XMS REPORT | Encounter Summary ---
Author Author [facility] Organization [facility] Address Unknown Phone Unavailable Care Team Providers Care Ocean Clam Boat Captain Name Role Phone Self, Lucius Heart MD PCP Reason for Visit * Reason Comments Medication Refill Encounter Details Care Team Description Date Type Department Chaya Gamez 10/20/2010 Refill [facility] Primne y [address] [address] Social History Date Tobacco Use [...]
--- OUTSIDE RECORDS SUMMARY | 2019-09-21 04:13 | XMS REPORT | Encounter Summary ---
Author Author [facility] Organization [facility] Address Unknown Phone Unavailable Care Team Providers Care Pathology Supervisor Name Role Phone Self, Lucius Heart MD PCP Reason for Visit * Reason Comments Allergies Encounter Details Care Team Description Date Type Department Katy Catalan APRN NO ADDRESS ON FILE Allergic rhinitis (Primary Dx) 08/31/2010 Office Visit [address] [address] Social History Date Tobacco Use [...] Comments Vital Sign - - Blood Pressure 106 08/31/2010 6:23 PM CDT Pulse 36.9 C (98.4 F) 08/31/2010 6:23 PM CDT Temperature - - Respiratory Rate 99% 08/31/2010 6:23 PM CDT Oxygen Saturation - - Inhaled Oxygen Concentration - - Weight - - Height - - Body Mass Index documented in this encounter Progress Notes * Katy Catalan NP - 08/31/2010 6:35 PM CDT HISTORY OF PRESENT ILLNESS Opal Trimble, a 20 y.o. female. HPI Allergy flare up since Monday. She has seasonal allergies. Started taking zyca m on Monday, has tried benadryl. No relief with either medication. REVIEW OF SYSTEMS Review of Systems HENT: Positive for congestion. PHYSICAL EXAM Pulse 106 | Temp 98.4 F (36.9 C) | SpO2 99% Physical Exam Constitutional: She is oriented to person, place, and time. She appears well-dev eloped and well-nourished. No distress. HENT: Head: Normocephalic and atraumatic. Right Ear: Tympanic membrane normal. Left Ear: Tympanic membrane normal. Nose: Mucosal edema and rhinorrhea present. Right sinus exhibits no maxillary si nus tenderness. Left sinus exhibits no maxillary sinus tenderness. Mouth/Throat: Uvula is midline, oropharynx is clear and moist and mucous membran es are normal. Eyes: Conjunctivae and extraocular motions are normal. Pupils are equal, round, and reactive to light. Neck: Normal range of motion. Neck supple. Cardiovascular: Normal rate, regular rhythm and normal heart sounds. Pulmonary/Chest: Effort normal and breath sounds normal. Musculoskeletal: Normal range of motion. Lymphadenopathy: She has no cervical adenopathy. Neurological: She is alert and oriented to person, place, and time. Skin: Skin is warm and dry. She is not diaphoretic. Psychiatric: She has a normal mood and affect. Her behavior is normal. Judgment and thought content normal. ASSESSMENT and PLAN: Encounter Diagnoses 1. Allergic rhinitis (477.9AD) fluticasone (FLONASE) 50 mcg/spray Both Nostril SpSn, loratadine (CLARITIN) 10 mg Oral tablet documented in this encounter Plan of Treatment Not on filedocumented as of this encounter Visit Diagnoses Diagnosis Allergic rhinitis - Primary Allergic rhinitis, cause unspecified documented in this encounter"
--- OUTSIDE RECORDS SUMMARY | 2019-09-21 04:13 | XMS REPORT | Encounter Summary ---
Author Author [facility] Organization [facility] Address Unknown Phone Unavailable Care Team Providers Care Adolescent Psychiatrist Name Role Phone Self, Lucius Heart MD PCP Reason for Visit * Reason Comments Medication Problem Encounter Details Care Team Description Date Type Department Chaya Gamez Medication Problem 08/25/2010 Telephone [facility] Primar [address] [address] Social History Date Tobacco Use [...] encounter Miscellaneous Notes * Telephone Encounter - Chaya Gamez - 08/25/2010 4:46 PM CDT Patient called stating she is on Adderall and has to take 2 or 3 at a time for A DHD and wants a refill but stronger. Per Self DENIED patient did not called to find out if she could take more of that medication so patient needs to go to [facility]. documented in this encounter Plan of Treatment Not on filedocumented as of this encounter Visit Diagnoses Not on filedocumented in this encounter
--- OUTSIDE RECORDS SUMMARY | 2019-09-21 04:13 | XMS REPORT | Encounter Summary ---
Author Author [facility] Organization [facility] Address Unknown Phone Unavailable Care Team Providers Care Jet Aircraft Servicer Name Role Phone Self, Lucius Heart MD PCP Encounter Details Care Team Description Date Type Department Anuja Contreras RN Amenorrhea (Primary Dx) 06/03/2011 Orders Only [facility] [address] [place] [address] Social History Date Tobacco Use [...] this encounter Results * HCG QUANTITATIVE, BLOOD (06/06/2011 12:00 AM PROCESS STRIPPER) HCG QUANT, 368 mIU/ml [facility] BLOOD Comment: [facility] Expected Range for non [facility] female = 0-6 mIU/ml. Weeks Post LMP Approximate HCG (Last Menstrual [...] the equivalent 3rd International Standard (3rd IS). CECILTESHA CEVALLOS ACCT#[id number], ,,,, Specimen Blood specimen (specimen) Performing Organization Address City/State/Zipcode Ph one Number [facility] CLIA# [id number] [place] [address] - MANUEL OLIVER [address] [place] [address] CLIA# [id number] [place] [address] documented in this encounter Visit Diagnoses Diagnosis Amenorrhea - Primary Absence of menstruation documented in this encounter
--- OUTSIDE RECORDS SUMMARY | 2019-09-21 04:13 | XMS REPORT | Encounter Summary ---
Author Author [facility] Organization [facility] Address Unknown Phone Unavailable Care Team Providers Care Photographers' Model Name Role Phone Self, Lucius Heart MD PCP Reason for Visit * Reason Comments Vomiting started last pm about 1500. Vomited 1 time last pm and 6-7 today. Sore Throat cant hardly swallow. hurts to eat and drink. Encounter Details Care Team Description Date Type Department Acute Tonsillitis 02/02/2010 Emergency [facility] Emergency Department [address] [phone] Social History Date Tobacco Use Types Packs/Day [...] Signs Reading Time Taken Comments Vital Sign 122/83 02/02/2010 8:12 PM CDT Blood Pressure 113 02/02/2010 8:12 PM CDT Pulse 37.4 C (99.3 F) 02/02/2010 8:12 PM CDT Temperature 18 02/02/2010 8:12 PM CDT Respiratory Rate 97% 02/02/2010 8:12 PM CDT Oxygen Saturation - - Inhaled Oxygen Concentration 90.7 kg (200 lb) 02/02/2010 8:12 PM CDT Weight 157.5 cm (5' 2") 02/02/2010 8:12 PM CDT Height 36.58 02/02/2010 8:12 PM CDT Body Mass Index documented in this encounter Discharge Instructions * Attachments The following attachments cannot be sent through Care Everywhere.* TONSILLITIS: AFTER YOUR VISIT (EQUATORIAL GUINEAN) documented in this encounter Medications at Time of Discharge Start Date End Date Medication Sig Dispensed Refills 02/02/2010 02/12/2010 cefdinir (OMNICEF) 300 mg Take 1 Cap by 20 Cap 0 Oral capsule mouth every 12 hours for 10 days. documented as of this encounter ED Notes * Tuan López Physician - 02/03/2010 11:25 AM CDT * Marlyn Groves ARNP - 02/02/2010 8:20 PM CDT HISTORY OF PRESENT ILLNESS Opal Trimble, a 19 y.o. female presents to the ED with a Chief Complaint of Vomiting and Sore Throat HPI Comments: St x 2d, vomiting since last night, not taking food well. Kept vianey yfriends vicodin down well this helped with ST Patient is a 19 y.o. female presenting with vomiting and sore throat. The histor y is provided by the patient. Vomiting This is a new problem. The current episode started 12 to 24 hours ago. The probl em occurs 2 to 4 times per day. The emesis has an appearance of stomach contents . Associated symptoms include chills and a fever. Pertinent negatives include no abdominal pain, no cough, no diarrhea and no URI. Sore Throat This is a new problem. The current episode started 2 days ago. The problem has b een gradually worsening. Associated symptoms include vomiting, swollen glands an d trouble swallowing. Pertinent negatives include no diarrhea, no congestion, no shortness of breath, no stiff neck and no cough. She has tried oral narcotic an algesics for the symptoms. The treatment provided moderate relief. REVIEW OF SYSTEMS Review of Systems Constitutional: Positive for fever and chills. HENT: Positive for sore throat and trouble swallowing. Negative for congestion. Respiratory: Negative for cough and shortness of breath. Gastrointestinal: Positive for nausea and vomiting. Negative for abdominal pain, diarrhea, constipation and blood in stool. PAST MEDICAL HISTORY REVIEWED Past Medical History Diagnosis Date ADD (Attention Deficit Disorder with Hyperactivity) Obesity (BMI 30.0-39.9) 2008 Depression cymbalta Past Surgical History Procedure Date Hx section 12/2005 Arrest of dilation @ 3 cm. Delivered in [place], [place] (rqt) No family history on file. History Social History Main Topics Tobacco Use: Yes -- 0.5 packs/day for 5 years Alcohol Use: No Drug Use: No Sexually Active: Yes -- Male partner(s) Control/ Protection: None ALLERGIES Sulfa (sulfonamide antibiotics) HOME MEDICATIONS Patient's Home Medications New Prescriptions for this Encounter CEFDINIR (OMNICEF) 300 MG ORAL CAPSULE Take 1 Cap by mouth every 12 hours fo r 10 days. HYDROCODONE-ACETAMINOPHEN (VICODIN) 5-500 MG ORAL TABLET Take 1 Tab by mouth every 4 hours as needed for Pain. HYDROCODONE-ACETAMINOPHEN (VICODIN) 5-500 MG ORAL TABLET Take 1 Tab by mouth every 4 hours as needed for Pain. ONDANSETRON (ZOFRAN ODT) [address] 1 Tab under tongue every 6 betsey rs as needed for Nausea (vomiting). Current Home Medications Medications Modified during this Encounter Medications Discontinued during this Encounter PHYSICAL EXAM Initial Vitals BP 02/02/102011 122/83 mmHg Pulse 02/02/102011 113 Resp 02/02/102011 18 Temp 02/02/102011 99.3 F (37.4 C) Temp src 02/02/102011 Oral SpO2 02/02/102011 97 % Physical Exam Constitutional: She is oriented to person, place, and time. She appears well-dev eloped and well-nourished. HENT: Head: Normocephalic and atraumatic. Right Ear: External ear normal. Left Ear: External ear normal. Nose: Nose normal. Mouth/Throat: Mucous membranes are normal. Oropharyngeal exudate, posterior orop haryngeal edema and posterior oropharyngeal erythema present. Eyes: Pupils are equal, round, and reactive to light. Neck: Normal range of motion. Neck supple. No JVD present. No tracheal deviation present. Cardiovascular: Normal rate, regular rhythm, normal heart sounds and intact dist al pulses. No murmur heard. Pulmonary/Chest: Effort normal and breath sounds normal. No respiratory distress . Abdominal: Soft. Bowel sounds are normal. No tenderness. Musculoskeletal: Normal range of motion. She exhibits no edema. Lymphadenopathy: She has cervical adenopathy. Neurological: She is alert and oriented to person, place, and time. Skin: Skin is warm and dry. Psychiatric: She has a normal mood and affect. Her behavior is normal. Coding DIAGNOSTICS LAB: Results for orders placed during the hospital encounter of 02/02/10 (from the [facility] 24 hour(s)) RAPID STREP SCREEN WITH REFLEX CULTURE Component Value Range RAPID STREP SCREEN WITH REFLEX CULTURE Value: SLIDE STREP SCREEN: STREP SCREEN - NEG. FOR GROUP A STREP. RADIOLOGY: EKG: PROCEDURES zofran 8mg sl, keeping po fluids down well in ed MEDICAL DECISION MAKING AND PLAN OF CARE Rocephin 1gm im in ed Home on omnicef, and vicodin/zofran prn Cont c/o 24-48h or worsened n/v f/u primary, may need ent Last vitals BP 122/83 | Pulse 113 | Temp(Src) 99.3 F (37.4 C) (Oral) | Resp 18 | Ht 5' 2" (1.575 m) | Wt 90.719 kg | SpO2 97% CLINICAL IMPRESSION Encounter Diagnoses Code Name Primary? 463 Acute Tonsillitis CASE DISCUSSED PATIENT COUNSELING Diagnostics reviewed and questions answered. Diagnosis, treatment options and p remedios of care discussed with understanding verbalized. DISPOSITION, EDUCATION AND MEDICATION RECONCILIATION Medications reconciled. See after visit summary for patient education on discha rged patients. documented in this encounter Plan of Treatment Not on filedocumented as of this encounter Procedures Comments Procedure Name Priority Date/Time Associated Diag nosis RAPID STREP SCREEN WITH Stat 02/02/2010 REFLEX CULTURE 8:15 PM CDT documented in this encounter Results * RAPID STREP SCREEN WITH REFLEX CULTURE (02/02/2010 8:15 PM CDT) STREPTOCOCCUS NO BETA STREPTOCOCCI ISOLATED [facility] GROUP A THROAT ON CULTUREComment: [facility] ACCT#[id number], ,,,, Specimen Respiratory sample (specimen) - Throat Performing Organization Address City/State/Zipcode Ph one Number [facility] CLIA# [id number] TESHA GORDON [address] - MANUEL OLIVER [address] [place] [address] CLIA# [id number] [place] [address] documented in this encounter Visit Diagnoses Diagnosis Acute tonsillitis documented in this encounter Administered Medications Action Date Dose Rate Site Medication Order MAR Action 02/02/2010 8:47 PM CDT 1,000 mg Arm, Rig ht Upper cefTRIAXone (ROCEPHIN) vial 1,000 mg Given 1,000 mg, IM, ONE TIME ONLY, 1 dose, 02/02/10 at 2045, Stat 02/02/2010 8:48 PM CDT 2.1 mL LIDOCAINE 10 MG/ML (1 %) INJECTION Given 1 dose, Starting Mon02/02/10 at 2039, Until Mon02/02/10 at 2047, Chinedu LEWIS: Jcarlosinet Override, 02/02/2010 8:28 PM CDT 8 mg ondansetron (ZOFRAN ODT) tablet 8 mg Given 8 mg, Sublingual, ONE TIME ONLY, 1 dose , Mon02/02/10 at 2030, Routine documented in this encounter
--- OUTSIDE RECORDS SUMMARY | 2019-09-21 04:13 | XMS REPORT | Encounter Summary ---
Author Author [facility] Organization [facility] Address Unknown Phone Unavailable Care Team Providers Care Paper Machine Tender Name Role Phone Self, Lucius Heart MD PCP Encounter Details Care Team Description Date Type Department Evangelista Marcos, DO [address] [place] [address] [facility], Lab Schedule 07/16/2010 [facility] General Encounter Laboratory Services [address] [phone] Social History Date Tobacco Use [...] Procedure Name Priority Date/Time Associated Diag nosis GC/CHLAMYDIA, GENITAL Routine 07/16/2010 Vaginal discharge 12:00 AM LEAD CUSTODIAN documented in this encounter Results * GC AND CHLAMYDIA DNA DETECTION (07/16/2010 12:00 AM LEAD CUSTODIAN) CHLAMYDIA DNA NOT DETECTED NOT DETECTED [facility] GC DNA NOT DETECTED NOT DETECTED [facility] GC AND SEE NOTE () [facility] CHLAMYDIA PROBE Comment: [facility] This test was performed using BENITO BOURGEOIS the BD ProbeTec(TM) ET Chlamydia trachomatis and Neisseria gonorrhoeae Amplified DNA Assays. Test performed at [facility] [address] [place] [address] Director: JIM PHILIP DO,MPH [place], ,,,, Specimen Specimen from genital system (specimen) - Endocervical Performing Organization Address City/State/Zipcode Ph one Number [facility] CLIA# [id number] TESHA GORDON [address] - MANUEL OLIVER [address] [place], [place] [address]IA# [id number] [place] [address] documented in this encounter Visit Diagnoses Diagnosis Vaginal discharge Leukorrhea, not specified as infective documented in this encounter
--- OUTSIDE RECORDS SUMMARY | 2019-09-21 04:13 | XMS REPORT | Encounter Summary ---
Author Author [facility] Organization [facility] Address Unknown Phone Unavailable Care Team Providers Care Mattress Filler Name Role Phone SelfLucius MD PCP Reason for Visit * Reason Comments Medication Refill pt wants to increase addera ll Other thinks cheeks are infected Encounter Details Care Team Description Date Type Department Self, Lucius Heart MD [address] [place] [address] ADD (attention deficit disorder) (Primar y Dx); Infected pierced face 09/07/2010 Office Visit [facility] Prim[facility] y [facility] [place] [address] [place] [address] Social History Date Tobacco Use [...] Reading Time Taken Comments Vital Sign 120/70 09/07/2010 9:23 AM CDT Blood Pressure - - Pulse 35.9 C (96.7 F) 09/07/2010 9:23 AM CDT Temperature - - Respiratory Rate - - Oxygen Saturation - - Inhaled Oxygen Concentration 102.3 kg (225 lb 8 oz) 09/07/2010 9:23 AM CDT Weight 157.5 cm (5' 2") 09/07/2010 9:23 AM CDT Height 41.24 09/07/2010 9:23 AM CDT Body Mass Index documented in this encounter Progress Notes * Self, Lucius J, MD - 09/07/2010 9:56 AM CDT HISTORY OF PRESENT ILLNESS Opal Trimble, a 20 y.o. female. Facial Swelling This is a new problem. The current episode started more than 2 days ago. The pro blem occurs constantly. The problem has been gradually worsening. Pertinent nega tives include no chest pain and no abdominal pain. Nothing aggravates the sympto ms. Nothing relieves the symptoms. She has tried nothing for the symptoms. REVIEW OF SYSTEMS Review of Systems Constitutional: Negative for fever. Cardiovascular: Negative for chest pain. Gastrointestinal: Negative for abdominal pain. PHYSICAL EXAM BP 120/70 | Temp 96.7 F (35.9 C) | Ht 5' 2" (1.575 m) | Wt 225 lb 8 oz (102. 286 kg) | BMI 41.24 kg/m2 Physical Exam Constitutional: She is oriented to person, place, and time. She appears well-dev eloped and well-nourished. HENT: Head: Normocephalic and atraumatic. Eyes: Conjunctivae are normal. Pupils are equal, round, and reactive to light. Neck: Normal range of motion. Neck supple. Cardiovascular: Normal rate and regular rhythm. No murmur heard. Pulmonary/Chest: Effort normal and breath sounds normal. Abdominal: Soft. Bowel sounds are normal. Musculoskeletal: Normal range of motion. Neurological: She is alert and oriented to person, place, and time. Skin: Skin is warm and dry. Redness around cheek piercing, tender and swollen ASSESSMENT and PLAN: Encounter Diagnoses 1. ADD (attention deficit disorder) (314.00S) 2. Infected pierced face (958.3AE) Orders Placed This Encounter Clindamycin hcl (cleocin) 300 mg oral cap Amphetamine-dextroamphetamine sr 24 hour (adderall xr) 30 mg oral capsule increasing adderall. follow up three months. 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
--- OUTSIDE RECORDS SUMMARY | 2019-09-21 04:13 | XMS REPORT | Encounter Summary ---
Author Author [facility] Organization [facility] Address Unknown Phone Unavailable Care Team Providers Care Denture Waxer Name Role Phone Self, Lucius Heart MD PCP Reason for Visit * Reason Comments Ear Pain Ongoing for the past 2 wks to the rt ear. States hurts to take a drink. Reportedly has tried to use ear drops w ith no relief. See ED notes. Encounter Details Care Team Description Date Type Department Acute Serous Otitis Media 06/02/2009 Emergency [facility] Emergency Department [address] [phone] Social History Date Tobacco Use Types Packs/Day Years Used Never Smoker Drinks/Week oz/Week Comments Alcohol Use No Sex Assigned at Date Recorded Not on file Industry Job Start Date Occupation Not on file Not on file Not on file Travel End Travel History Travel Start No recent travel history available. documented as of this encounter Last Filed Vital Signs Reading Time Taken Comments Vital Sign 133/75 06/02/2009 12:15 PM SENIOR INFORMATION SECURITY ARCHITECT Blood Pressure 103 06/02/2009 12:15 PM SENIOR INFORMATION SECURITY ARCHITECT Pulse 36.8 C (98.3 F) 06/02/2009 12:15 PM SENIOR INFORMATION SECURITY ARCHITECT Temperature 16 06/02/2009 12:15 PM SENIOR INFORMATION SECURITY ARCHITECT Respiratory Rate 95% 06/02/2009 12:15 PM SENIOR INFORMATION SECURITY ARCHITECT Oxygen Saturation - - Inhaled Oxygen Concentration 79.4 kg (175 lb) 06/02/2009 12:15 PM SENIOR INFORMATION SECURITY ARCHITECT Weight 157.5 cm (5' 2") 06/02/2009 12:15 PM SENIOR INFORMATION SECURITY ARCHITECT Height 32.01 06/02/2009 12:15 PM SENIOR INFORMATION SECURITY ARCHITECT Body Mass Index documented in this encounter Discharge Instructions * Instructions* Marlyn Groves ARNP - 06/02/2009 Afrin nose spray 3 times daily for 2-3 days Open E. Tube 4-5 times a day as discussed. Follow up with Dr Riley for re-check * Attachments The following attachments cannot be sent through Care Everywhere.* EAR INFECTION IN ADULTS (OTITIS MEDIA): AFTER YOUR VISIT ([place]) documented in this encounter Medications at Time of Discharge Start Date End Date Medication Sig Dispensed Refills 06/02/2009 06/12/2009 amoxicillin-clavulanate Take 1 Tab by 20 Tab 0 (AUGMENTIN) 875-125 mg mouth 2 times Oral tablet daily after meals for 10 days. documented as of this encounter ED Notes * Tuan López Physician - 06/03/2009 8:59 AM SENIOR INFORMATION SECURITY ARCHITECT * Marlyn Groves ARNP - 06/02/2009 12:48 PM SENIOR INFORMATION SECURITY ARCHITECT HISTORY OF PRESENT ILLNESS Opal Trimble, a 19 y.o. female presents to the ED with a Chief Complaint of Ear Pain Patient is a 19 y.o. female presenting with ear pain. The history is provided by the patient. Ear Pain This is a new problem. The current episode started more than 1 week ago. There i s pain in the right ear. The problem occurs constantly. There has been no fever. Pertinent negatives include no ear discharge, no headaches, no sore throat, no abdominal pain, no diarrhea, no vomiting, no cough and no rash. Her past medical history is significant for chronic ear infection. REVIEW OF SYSTEMS Review of Systems Constitutional: Negative for fever and chills. HENT: Positive for ear pain. Negative for sore throat and ear discharge. Respiratory: Negative for cough. Cardiovascular: Negative for chest pain and palpitations. Gastrointestinal: Negative for vomiting, abdominal pain and diarrhea. Skin: Negative for rash. Neurological: Negative for headaches. PAST MEDICAL HISTORY REVIEWED Past Medical History Diagnosis Date ADD (Attention Deficit Disorder with Hyperactivity) Obesity (BMI 30.0-39.9) 2009 Depression cymbalta Past Surgical History Procedure Date Hx section 12/2005 Arrest of dilation @ 3 cm. Delivered in [place], [place] (rqt) No family history on file. History Social History Main Topics Tobacco Use: Never Alcohol Use: No Drug Use: No Sexually Active: Yes -- Male partner(s) Control/ Protection: None ALLERGIES Sulfa (sulfonamide antibiotics) HOME MEDICATIONS Patient's Home Medications New Prescriptions for this Encounter AMOXICILLIN-CLAVULANATE (AUGMENTIN) 875-125 MG ORAL TABLET Take 1 Tab by gene th 2 times daily after meals for 10 days. METHYLPREDNISOLONE (MEDROL, MIKAELA,) 4 MG ORAL DSPK Take 1 Tab by mouth see adm inistration instructions. Current Home Medications MEDROXYPROGESTERONE,CONTRACEP, (DEPO-PROVERA) 150 MG/ML IM SYRG Inject 150 m g by intramuscular injection one time only. Medications Modified during this Encounter Medications Discontinued during this Encounter PHYSICAL EXAM Initial Vitals BP 06/02/09 1215 133/75 mmHg Pulse 06/02/09 1215 103 Resp 06/02/09 1215 16 Temp 06/02/09 1215 98.3 F (36.8 C) Temp src 06/02/09 1215 Oral SpO2 06/02/09 1215 95 % Physical Exam Constitutional: She is oriented. She appears well-developed and well-nourished. HENT: Head: Normocephalic and atraumatic. Right Ear: Tympanic membrane is erythematous and bulging. A middle ear effusion is present. Left Ear: External ear normal. Mouth/Throat: Oropharynx is clear and moist. Eyes: Pupils are equal, round, and reactive to light. Neck: Normal range of motion. Neck supple. Pulmonary/Chest: Effort normal. Lymphadenopathy: She has no cervical adenopathy. Neurological: She is alert and oriented. Skin: Skin is warm and dry. Psychiatric: She has a normal mood and affect. Her behavior is normal. MDM Coding Reviewed: nursing note, vitals and previous chart DIAGNOSTICS LAB: RADIOLOGY: EKG: PROCEDURES MEDICAL DECISION MAKING AND PLAN OF CARE May need myringotomy or tubes, rec ent f/u d/t ongoing ear c/o. rec et exercises Last vitals BP 133/75 | Pulse 103 | Temp(Src) 98.3 F (36.8 C) (Oral) | Resp 16 | Ht 5' 2" (1.575 m) | Wt 79.379 kg | SpO2 95% | LMP 05/26/2009 CLINICAL IMPRESSION Encounter Diagnoses Code Name Primary? 381.01 Acute Serous Otitis Media CASE DISCUSSED PATIENT COUNSELING Diagnostics reviewed and questions answered. Diagnosis, treatment options and p remedios of care discussed with understanding verbalized. DISPOSITION, EDUCATION AND MEDICATION RECONCILIATION Medications reconciled. See after visit summary for patient education on discha rged patients. OR INFORMATION SECURITY ARCHITECT * Guillermina Ambrose RN - 06/02/2009 12:20 PM SENIOR INFORMATION SECURITY ARCHITECT Marlyn PATEL to room to assess pt. OR INFORMATION SECURITY ARCHITECT * Guillermina Ambrose RN - 06/02/2009 12:12 PM SENIOR INFORMATION SECURITY ARCHITECT Pt found sitting in waiting room in no apparent distress. Triaged & vs taken in registration area. Pt reports that she has a an earache for the past [address] Murry's office approx 1 hr ago and was given appt time of 2:30 p.m. Pt states that this was not a good time for her and that she is going to be out of town at that time, so chose to come to the ER. OR INFORMATION SECURITY ARCHITECT documented in this encounter Plan of Treatment Not on filedocumented as of this encounter Visit Diagnoses Diagnosis Acute serous otitis media documented in this encounter
--- OUTSIDE RECORDS SUMMARY | 2019-09-21 04:13 | XMS REPORT | Encounter Summary ---
Author Author [facility] Organization [facility] Address Unknown Phone Unavailable Care Team Providers Care Natural Developer Name Role Phone Self, Lucius Heart MD PCP Reason for Visit * Reason Comments Miscarriage beta's dropped Encounter Details Care Team Description Date Type Department Evangelista Marcos DO [address] [place] [address] Incomplete (Primary Dx) 06/13/2011 [facility] [address] [place] [address] Social History Date Tobacco Use [...] Reading Time Taken Comments Vital Sign 128/64 06/13/2011 8:46 AM BUSINESS ACCOUNT MANAGER Blood Pressure - - Pulse - - Temperature - - Respiratory Rate - - Oxygen Saturation - - Inhaled Oxygen Concentration 109.3 kg (241 lb) 06/13/2011 8:46 AM BUSINESS ACCOUNT MANAGER Weight - - Height 45.54 06/12/2011 9:06 PM BUSINESS ACCOUNT MANAGER Body Mass Index documented in this encounter Progress Notes * Evangelista Marcos DO - 06/13/2011 9:15 AM BUSINESS ACCOUNT MANAGER In ED last night for first trimester bleeding--Quantitative HCG went from 368 to 75 in one week. Incomplete --Tylenol #3 one tablet orally every 4 hours (#30). Ibuprofen 800 mg one tablet orally every 8 hours (#30). Methergine 0.2 mg one tablet orally every 6 hours (#12). Doxycycline 100 mg one tablet orally every 12 hours (#14). Repeat Quantitative HCG weekly until within normal limits for non. NESS ACCOUNT MANAGER documented in this encounter Plan of Treatment Not on filedocumented as of this encounter Visit Diagnoses Diagnosis Incomplete - Primary Legally unspecified , incomplet e, without mention of complication documented in this encounter
--- OUTSIDE RECORDS SUMMARY | 2019-09-21 04:13 | XMS REPORT | Encounter Summary ---
Author Author [facility] Organization [facility] Address Unknown Phone Unavailable Care Team Providers Care Window/Distribution Clerk Name Role Phone Self, Lucius Heart MD PCP Reason for Visit * Reason Comments Hives face-itches all over body Encounter Details Care Team Description Date Type Department Nic Hebert MD [address] [place] [address] Hives (Primary Dx) 11/11/2010 Office Visit [facility] Primar y Care [place] [address] [place] [address] Social History Date [...] Signs Reading Time Taken Comments Vital Sign 110/72 11/11/2010 3:29 PM CDT Blood Pressure - - Pulse 37.2 C (99 F) 11/11/2010 3:29 PM CDT Temperature - - Respiratory Rate - - Oxygen Saturation - - Inhaled Oxygen Concentration 104.3 kg (230 lb) 11/11/2010 3:29 PM CDT Weight 157.5 cm (5' 2") 11/11/2010 3:29 PM CDT Height 42.07 11/11/2010 3:29 PM CDT Body Mass Index documented in this encounter Progress Notes * Nic Hebert MD - 11/11/2010 3:35 PM CDT HISTORY OF PRESENT ILLNESS Opal Trimble, a 20 y.o. female. Chief Complaint Patient presents with Hives face-itches all over body HPI REVIEW OF SYSTEMS Review of Systems Respiratory: Negative for shortness of breath. Cardiovascular: Negative for chest pain. Gastrointestinal: Negative for nausea, vomiting and abdominal pain. Skin: Positive for rash and itching. PHYSICAL EXAM BP 110/72 | Temp(Src) 99 F (37.2 C) (Tympanic) | Ht 5' 2" (1.575 m) | Wt 230 lb (104.327 kg) | BMI 42.07 kg/m2 Physical Exam Constitutional: She appears well-developed and well-nourished. HENT: Mouth/Throat: No oropharyngeal exudate. Eyes: Extraocular motions are normal. Pupils are equal, round, and reactive to l ight. Right eye exhibits no discharge. Left eye exhibits no discharge. Skin: Rash (small area of patchy rash left face lateral to orbit) noted. ASSESSMENT and PLAN: Encounter Diagnoses 1. Hives (708.9E) METHYLPREDNISOLONE ACETATE 80 MG/ML INJECTION, DEXAMETHASONE SODIUM PHOSPHATE 4 MG/ML INJECTION Continue daily claritin Advised of signs of anaphylaxis Pt believes this happened in response to eating meatballs so advised to avoid documented in this encounter Plan of Treatment Not on filedocumented as of this encounter Visit Diagnoses Diagnosis Hives - Primary Urticaria, unspecified documented in this encounter
--- OUTSIDE RECORDS SUMMARY | 2019-09-21 04:13 | XMS REPORT | Encounter Summary ---
Author Author [facility] Organization [facility] Address Unknown Phone Unavailable Care Team Providers Care Director Ship Name Role Phone Self, Lucius Heart MD PCP Reason for Visit * Reason Comments Vaginal Bleeding started about an hour ago - pt states she has been moving the last couple of days and has been lifting - not usin g any pads at this time but has noted bleeding when using restroom. pt is . Encounter Details Care Team Description Date Type Department WalkerMatthew alba MD NO ADDRESS ON FILE First trimester bleeding 06/12/2011 Emergency [facility] Emergency Department [place] [address] Social History Date Tobacco Use [...] Signs Reading Time Taken Comments Vital Sign 136/86 06/12/2011 9:06 PM TOOL SETTER APPRENTICE Blood Pressure 87 06/12/2011 9:06 PM TOOL SETTER APPRENTICE Pulse 37.1 C (98.7 F) 06/12/2011 9:06 PM TOOL SETTER APPRENTICE Temperature 18 06/12/2011 9:06 PM TOOL SETTER APPRENTICE Respiratory Rate 98% 06/12/2011 9:06 PM TOOL SETTER APPRENTICE Oxygen Saturation - - Inhaled Oxygen Concentration 104.3 kg (230 lb) 06/12/2011 9:06 PM TOOL SETTER APPRENTICE Weight 154.9 cm (5' 1") 06/12/2011 9:06 PM TOOL SETTER APPRENTICE Height 43.46 06/12/2011 9:06 PM TOOL SETTER APPRENTICE Body Mass Index documented in this encounter Discharge Instructions * Patient Instructions* Aok Scanning, Him - 06/13/2011 11:45 AM TOOL SETTER APPRENTICE Electronically signed by Interface, Minh Aok Transcriptions Incoming at 2 11:45 AM TOOL SETTER APPRENTICE * Additional Instructions* Matthew Walker MD - 06/12/[address] Marcos tomorrow of cramping and spotting. * Attachments The following attachments cannot be sent through Care Everywhere.* VAGINAL BLEEDING AFTER THE FIRST TRIMESTER OF : AFTER YOUR VISIT (TURKISH) documented in this encounter Medications at Time of Discharge Start Date End Date Medication Sig Dispensed Refills 02/28/2011 08/08/2011 clomiPHENE citrate Take 1 Tab by 30 Tab 0 (CLOMID) 50 mg Oral mouth daily. 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 documented as of this encounter ED Notes * Matthew Walker MD - 06/12/2011 9:47 PM TOOL SETTER APPRENTICE HISTORY OF PRESENT ILLNESS Opal Trimble, a 21 y.o. female presents to the ED with a Chief Complaint of Vaginal Bleeding Patient is a 21 y.o. female presenting with vagainal bleeding. The history is pr ovided by the patient. Vaginal Bleeding This is a new problem. The current episode started 1 to 2 hours ago. The problem has not changed since onset.Associated symptoms include abdominal pain (a little cramping very mild). The symptoms are aggravated by nothing. The symptoms are relieved by nothing. She has tried nothing for the symptoms. 2 Para 1, LMP mid April possibly six weeks that started to have some spotting and cramping tonight. REVIEW OF SYSTEMS Review of Systems Constitutional: Negative for fever and chills. Gastrointestinal: Positive for abdominal pain (a little cramping very mild). Genitourinary: Positive for vaginal bleeding. Negative for urgency and frequency . PAST MEDICAL HISTORY REVIEWED Past Medical History Diagnosis Date ADD (attention deficit disorder with hyperactivity) Obesity (BMI 30.0-39.9) 2008 Depression cymbalta Past Surgical History Procedure Date Hx section 12/2005 Arrest of dilation @ 3 cm. Delivered in [place], [place] (rqt) No family history on file. History Social History Main Topics Smoking status: Former Smoker -- 1.0 packs/day for 5 years Types: Cigarettes Quit date: 04/06/2011 Smokeless tobacco: Not on file Alcohol Use: No drinks on weekends Drug Use: No Sexually Active: Yes -- Male partner(s) Control/ Protection: None Patient Active Problem List Diagnoses Date Noted Anovulation 11/29/2010 ADD (attention deficit disorder) 08/06/2010 Well woman exam with routine gynecological exam 07/16/2010 Obesity (BMI 30.0-39.9) ALLERGIES Sulfa (sulfonamide antibiotics) HOME MEDICATIONS Patient's Home Medications New Prescriptions for this Encounter Current Home Medications CLOMIPHENE CITRATE (CLOMID) 50 MG ORAL TABLET Take 1 Tab by mouth daily. FLUTICASONE (FLONASE) 50 MCG/SPRAY BOTH NOSTRIL SPSN Administer 2 Sprays in each nostril daily. HYDROCODONE-ACETAMINOPHEN (NORCO) 5-325 MG ORAL TABLET Take 1-2 Tabs by mout h every 4 hours as needed for Pain. LORATADINE (CLARITIN) 10 MG ORAL TABLET Take 1 Tab by mouth daily. PROMETHAZINE (PHENERGAN) 25 MG ORAL TABLET Take 1 Tab by mouth every 6 hours as needed for Nausea. Medications Modified during this Encounter Medications Discontinued during this Encounter PHYSICAL EXAM Initial Vitals BP 06/12/11 2106 136/86 mmHg Pulse 06/12/11 2106 87 Resp 06/12/11 2106 18 Temp 06/12/11 2106 98.7 F (37.1 C) Temp src 06/12/11 2106 Oral SpO2 06/12/11 2106 98 % Physical Exam Vitals reviewed. Constitutional: She is oriented to person, place, and time. She appears well-dev eloped and well-nourished. No distress. HENT: Head: Normocephalic and atraumatic. Right Ear: External ear normal. Left Ear: External ear normal. Eyes: Conjunctivae and EOM are normal. Pupils are equal, round, and reactive to light. Neck: Neck supple. No JVD present. Cardiovascular: Normal rate, regular rhythm, normal heart sounds and intact dist al pulses. Pulmonary/Chest: Effort normal and breath sounds normal. No stridor. No respirat ory distress. She has no wheezes. She has no rales. Abdominal: Soft. Bowel sounds are normal. She exhibits no distension and no mass . No tenderness. Genitourinary: Speculum exam done. Some dark blood, no tissue. Cx closed to inspection and palpation. Musculoskeletal: She exhibits no edema. Lymphadenopathy: She has no cervical adenopathy. Neurological: She is alert and oriented to person, place, and time. No cranial n erve deficit. Coordination normal. Skin: Skin is warm and dry. No rash noted. Psychiatric: She has a normal mood and affect. Her behavior is normal. DIAGNOSTICS LAB: Results for orders placed during the hospital encounter of 06/12/11 (from the [facility] 24 hour(s)) URINALYSIS WITH REFLEX CULTURE Component Value Range GLUCOSE UA Negative Negative (mg/dl) BILIRUBIN UA Negative Negative KETONES UA Negative Negative (mg/dl) SPECIFIC GRAVITY UA 1.019 1.002 - 1.030 PH UA 5.5 PROTEIN UA 30 (*) Negative (mg/dl) UROBILINOGEN UA <2.0 0.2 - 1.0 (EU/dl) NITRITE UA Negative Negative BLOOD UA Large (*) Negative LEUKOCYTE ESTERASE UA Moderate (*) Negative COLOR UA Yellow CLARITY UA Hazy WBC UA Packed Field (*) 0 - 5 (/HPF) RBC UA Packed Field (*) 0 - 5 (/HPF) BACTERIA UA 3+ (*) Negative (/HPF) MUCOUS, URINE Heavy EPITHELIAL CELLS, URINE 3+ squamous COMMENT, URINE See Culture Report. CBC WITHOUT DIFFERENTIAL Component Value Range WBC 9.87 3.0 - 10.4 (x10E3) RBC 4.37 3.77 - 4.97 (x10E6) HEMOGLOBIN 12.8 11.9 - 15.0 (g/dL) HEMATOCRIT 38.1 34.4 - 43.6 (%) MCV 87.2 79 - 100 (fL) MCH 29.2 28 - 34 (pg) MCHC 33.5 32 - 35 (g/dL) RDW 13.8 11.5 - 15.1 (%) PLATELETS 317 148 - 408 (x10E3) MPV 7.5 7.4 - 10.6 (fL) RADIOLOGY: EKG: PROCEDURES Procedures REEVALUATION MEDICAL DECISION MAKING AND PLAN OF CARE Last vitals BP 136/86 | Pulse 87 | Temp(Src) 98.7 F (37.1 C) (Oral) | Resp 18 | Ht 5' 1" (1.549 m) | Wt 104.327 kg | BMI 43.46 kg/m2 | SpO2 98% | LMP 04/28 Coding CLINICAL IMPRESSION Encounter Diagnoses Code Name Primary? 640.93 First trimester bleeding CASE DISCUSSED PATIENT COUNSELING Diagnostics reviewed and questions answered. Diagnosis, treatment options and p remedios of care discussed with understanding verbalized. DISPOSITION, EDUCATION AND MEDICATION RECONCILIATION Medications reconciled. See after visit summary for patient education on discha rged patients. Cbc and beta HCG drawn. Tylenol #3for pain or cramping. To notify Dr Marcos office tomorrow regarding spo tting. Concern due to lower HCG from a week ago. SETTER APPRENTICE documented in this encounter Plan of Treatment Not on filedocumented as of this encounter Procedures Comments Procedure Name Priority Date/Time Associated Diag nosis CBC WITHOUT DIFFERENTIAL Stat 06/12/2011 9:33 PM TOOL SETTER APPRENTICE HCG QUANTITATIVE, BLOOD Stat 06/12/2011 9:33 PM TOOL SETTER APPRENTICE URINALYSIS WITH REFLEX Stat 06/12/2011 CULTURE 9:22 PM TOOL SETTER APPRENTICE URINE CULTURE Stat 06/12/2011 9:22 PM TOOL SETTER APPRENTICE documented in this encounter Results * HCG QUANTITATIVE, BLOOD (06/12/2011 9:33 PM TOOL SETTER APPRENTICE) HCG QUANT, 75 mIU/ml [facility] BLOOD Comment: [facility] Expected Range for non [facility] female = 0-6 mIU/ml. Weeks Post [...] the equivalent 3rd International Standard (3rd IS). CECILBrettMARTTESHA ACCT#[id number], ,,,, Specimen Blood specimen (specimen) Performing Organization Address City/[facility] Ph one Number [facility] CLIA# [id number] [place] T[place] [address] [address] - [facility] [place] [address] [place] [address] CLIA# [id number] [place] S [address] * CBC WITHOUT DIFFERENTIAL (06/12/2011 9:33 PM TOOL SETTER APPRENTICE) [facility] WBC 9.87 3.0 - 10.[address] [facility] RBC 4.37 3.77 - 4.97 x10E6 [facility] HEMOGLOBIN 12.8 11.9 - 15.0 g/dL [facility] HEMATOCRIT 38.1 34.4 - 43.6 % [facility] MCV 87.2 79 - 100 fL [facility] MCH 29.2 28 - 34 pg [facility] MCHC 33.5 32 - 35 g/dL [facility] RDW 13.8 11.5 - 15.1 % [facility] PLATELETS 317 148 - 408 x10E3 [facility] MPV 7.5Comment: CECILBrettJERILYNTESHA HOOPER 7.4 - 10.6 [facility] ACCT#[id number], ,,,, CENTER [facility] Specimen Blood specimen (specimen) Performing Organization Address City/[facility] Ph one Number [facility] CLIA# [id number] [place] [address] - [place] [address] [place] [address] CLIA# [id number] [place] [address] [address] * URINE CULTURE (06/12/2011 9:22 PM TOOL SETTER APPRENTICE) ORGANISM ESCHERICHIA COLI (A) [facility] URINE CULTURE COLONY COUNT: >100,000 (A) [facility] Specimen Antibiotic Method Susceptibility Organism AMIKACIN PEDRO MCG/ML <=2: Susceptible Escherichia coli AMPICILLIN PEDRO MCG/ML >=32: Resistant Escherichia coli AMPICILLIN/ SULBACTAM PEDRO MCG/ML >=32: Resistant Escherichia coli CEFAZOLIN PEDRO MCG/ML <=4: Susceptible Escherichia coli CEFEPIME PEDRO MCG/ML <=1: Susceptible Escherichia coli CEFOXITIN PEDRO MCG/ML <=4: Susceptible Escherichia coli CEFTAZIDIME PEDRO MCG/ML <=1: Susceptible Escherichia coli CEFTRIAXONE PEDRO MCG/ML <=1: Susceptible Escherichia coli CIPROFLOXACIN PEDRO MCG/ML <=0.25: Susceptible Escherichia coli ERTAPENEM PEDRO MCG/ML <=0.5: Susceptible Escherichia coli GENTAMICIN PEDRO MCG/ML <=1: Susceptible Escherichia coli IMIPENEM PEDRO MCG/ML <=1: Susceptible Escherichia coli LEVOFLOXACIN PEDRO MCG/ML <=0.12: Susceptible Escherichia coli NITROFURANTOIN PEDRO MCG/ML 64: Intermediate Escherichia coli TOBRAMYCIN PEDRO MCG/ML <=1: Susceptible Escherichia coli TRIMETHOPRIM/ SULFAMETHOXAZOLE PEDRO MCG/ML <=20: Susceptible Escherichia coli Comment: [facility] CEVALLOS ACCT#[id number], ,,,, Performing Organization Address City/State/[facility] Ph one Number [facility] CLIA# [id number] TESHA [place] [address] - [place] OL[place] [address] [place], [place] [address]IA# [id number] [place] GORDON [address] [place] [address] * URINALYSIS WITH REFLEX CULTURE (06/12/2011 9:22 PM TOOL SETTER APPRENTICE) GLUCOSE UA Negative Negative mg/dl [facility] BILIRUBIN UA Negative Negative [facility] KETONES UA Negative Negative mg/dl [facility] SPECIFIC 1.019 1.002 - 1.030 [facility] GRAVITY UA MANASQUAN [facility] PH UA 5.5 [facility] PROTEIN UA 30 (H) Negative mg/dl [facility] UROBILINOGEN UA <2.0 0.2 - 1.0 EU/dl [facility] NITRITE UA Negative Negative [facility] BLOOD UA Large (H) Negative [facility] LEUKOCYTE Moderate (H) Negative [facility] ESTERASE UA MANASQUAN [facility] COLOR UA Yellow [facility] CLARITY UA Hazy [facility] WBC UA Packed Field (H) 0 - 5 /HPF [facility] RBC UA Packed Field (H) 0 - 5 /HPF [facility] BACTERIA UA 3+ (H) Negative /HPF [facility] MUCOUS, URINE Heavy /LPF [facility] EPITHELIAL 3+ squamous [facility] CELLS, URINE MANASQUAN [facility] COMMENT, URINE See Culture Report.Comment: CECIL DOE [facility]NER[facility]hTESHA CEVALLOS [facility] ACCT#[id number], ,,,, [facility] Specimen Urine, clean catch Performing Organization Address City/State/Zipcode Ph one Number [facility] CLIA# [id number] T[place]HA [place] [address] - [place] OL[place] [address] [place] [address] CLIA# [id number] [place] GORDON [address] [address] documented in this encounter Visit Diagnoses Diagnosis First trimester bleeding Unspecified hemorrhage in early pregnan cy, antepartum documented in this encounter
--- OUTSIDE RECORDS SUMMARY | 2019-09-21 04:13 | XMS REPORT | Encounter Summary ---
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 documented as of this encounter Plan of Treatment Not on filedocumented as of this encounter Procedures Comments Procedure Name Priority Date/Time Associated Diag nosis HCG QUANTITATIVE, BLOOD Stat 06/06/2011 Amenor jairo 12:00 AM OUTFITTER CABIN documented in this encounter Results * HCG QUANTITATIVE, BLOOD (06/06/2011 12:00 AM OUTFITTER CABIN) HCG QUANT, 368 mIU/ml [facility] BLOOD Comment: [facility] Expected Range for non [facility] female = 0-6 mIU/ml. Weeks Post [...] the equivalent 3rd International Standard (3rd IS). [facility] CEVALLOS ACCT#[id number], ,,,, Specimen Blood specimen (specimen) Performing Organization Address City/State/Zipcome Ph one Number [facility] CLIA# [id number] [place] OL[place] [address] [address] [address] CLIA# [id number] [place] [address] documented in this encounter Visit Diagnoses Diagnosis Amenorrhea Absence of menstruation documented in this encounter
--- OUTSIDE RECORDS SUMMARY | 2019-09-21 04:13 | XMS REPORT | Encounter Summary ---
Author Author [facility] Organization [facility] Address Unknown Phone Unavailable Care Team Providers Care Manager Cardiac Cath Name Role Phone Self, Lucius Heart MD PCP Reason for Visit * Reason Comments Medication Refill Encounter Details Care Team Description Date Type Department Anuja Contreras RN 06/13/[address] [address] Social History Date Tobacco Use [...]
--- OUTSIDE RECORDS SUMMARY | 2019-09-21 04:13 | XMS REPORT | Encounter Summary ---
Author Author [facility] Organization [facility] Address Unknown Phone Unavailable Care Team Providers Care Guest Service Aide Name Role Phone Self, Lucius Heart MD PCP Reason for Visit * Reason Comments Irregular Menses skip a month and then have 2 periods Infertility wanting to conceive Encounter Details Care Team Description Date Type Department Evnagelista Marcos DO [address] [place] [address] Anovulation (Primary Dx) 11/29/2010 [facility] [address] [place] [address] Social History Date Tobacco Use [...] Signs Reading Time Taken Comments Vital Sign 122/60 11/29/2010 1:31 PM CDT Blood Pressure - - Pulse 37.3 C (99.2 F) 11/29/2010 1:31 PM CDT Temperature - - Respiratory Rate - - Oxygen Saturation - - Inhaled Oxygen Concentration 104.8 kg (231 lb) 11/29/2010 1:31 PM CDT Weight 154.9 cm (5' 1") 11/29/2010 1:31 PM CDT Height 43.65 11/29/2010 1:31 PM CDT Body Mass Index documented in this encounter Progress Notes * Evangelista Marcos DO - 11/29/2010 1:54 PM CDT HISTORY OF PRESENT ILLNESS Opal Trimble, a 20 y.o. female. HPI Ms. Trimble presents to our office secondary to not being able to conceive. She states that her and her partner have been trying for over a year, with no succe ss. Admits that her menses are somewhat irregular--one month normal, then the n ext month she will have two periods. REVIEW OF SYSTEMS Review of Systems Review [...] TIA or stroke symptoms PHYSICAL EXAM BP 122/60 | Temp 99.2 F (37.3 C) | Ht 5' 1" (1.549 m) | Wt 231 lb (104.781 k g) | BMI 43.65 kg/m2 | LMP 11/23/2010 Physical Exam General appearance: active, alert, in no distress Neurologic: Alert and oriented X 3, normal strength and tone. Normal symmetric r eflexes. Normal coordination and gait ASSESSMENT and PLAN: Assessment: Anovulation Plan: We had a lengthy discussion (approximately 20 minutes) concerning ovulati on, timing of intercourse, time to refrain from intercourse and the use of ferti lity medications. She is going to try the natural method for 3 months, then, if she doesn't become then she will return and we will consider Clomid. 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
--- OUTSIDE RECORDS SUMMARY | 2019-09-21 04:13 | XMS REPORT | Encounter Summary ---
Author Author [facility] Organization [facility] Address Unknown Phone Unavailable Care Team Providers Care Nurse Infection Control Name Role Phone Self, Lucius Heart MD PCP Reason for Visit * Reason Comments Medication Refill Encounter Details Care Team Description Date Type Department Anuja Contreras RN 02/28/[address] [address] Social History Date Tobacco Use [...] encounter Miscellaneous Notes * Telephone Encounter - Anuja Contreras RN - 02/28/2011 9:49 AM CDT CLOMID TO [facility] FOR FERTILITY. TA documented in this encounter Plan of Treatment Not on filedocumented as of this encounter Visit Diagnoses Not on filedocumented in this encounter
--- OUTSIDE RECORDS SUMMARY | 2019-09-21 04:13 | XMS REPORT | Encounter Summary ---
Author Author [facility] Organization [facility] Address Unknown Phone Unavailable Care Team Providers Care Yarn Conditioner Name Role Phone Self, Lucius Heart MD PCP Reason for Visit * Reason Comments Medication Refill Encounter Details Care Team Description Date Type Department Anuja Contreras RN 06/13/[address] [address] Social History Date Tobacco Use [...] Telephone Encounter - Anuja Contreras RN - 06/13/2011 10:25 AM LAUNCH MANAGER INS PLAN DOESN'T COVER DOXYCYCLINE; NEW ORDER FOR FLAGYL 500MG #14 TO [facility]. TA CH MANAGER documented in this encounter Plan of Treatment Not on filedocumented as of this encounter Visit Diagnoses Not on filedocumented in this encounter
--- OUTSIDE RECORDS SUMMARY | 2019-09-21 04:13 | XMS REPORT | Encounter Summary ---
Author Author [facility] Organization [facility] Address Unknown Phone Unavailable Care Team Providers Care Precision Lens Polisher Name Role Phone Lucius Murry MD PCP Reason for Visit * Reason Comments Upper Respiratory since yest Symptoms Other wants back on adderall Letter for School/Work needs note to return [facility] Encounter Details Care Team Description Date Type Department Lucius Murry MD [address] [place] [address] ADD (attention deficit disorder) (Primar y Dx) 08/06/2010 Office Visit [facility] Primar y Care [place] [address] [place] [address] Social History Date Tobacco Use [...] - - Blood Pressure - - Pulse 36.7 C (98.1 F) 08/06/2010 1:50 PM CDT Temperature - - Respiratory Rate - - Oxygen Saturation - - Inhaled Oxygen Concentration - - Weight 157.5 cm (5' 2") 08/06/2010 1:50 PM CDT Height - - Body Mass Index documented in this encounter Progress Notes * Lucius Murry MD - 08/06/2010 2:04 PM CDT SUBJECTIVE: Opal Trimble is a 20 y.o. female who complains of congestion and dry coug h for 2 days. She denies a history of chest pain and denies a history of asthma. Patient does smoke cigarettes. OBJECTIVE: She appears well, vital signs are as noted. Ears normal. Throat and pharynx nor mal. Neck supple. No adenopathy in the neck. Nose is congested. Sinuses non ten mya. The chest is clear, without wheezes or rales. ASSESSMENT: viral upper respiratory illness; ADD PLAN: Symptomatic therapy suggested: push fluids, rest and encouraged very strongly to quit smoking. Lack of antibiotic effectiveness discussed with her. Call or retu rn to clinic prn if these symptoms worsen or fail to improve as anticipated. Orders Placed This Encounter Amphetamine-dextroamphetamine sr 24 hour (adderall xr) 10 mg oral capsule Methylprednisolone (medrol dospack) 4 mg oral dspk documented in this encounter Plan of Treatment Not on filedocumented as of this encounter Visit Diagnoses Diagnosis ADD (attention deficit disorder) - Prim jerry Attention deficit disorder without ment ion of hyperactivity documented in this encounter
--- OUTSIDE RECORDS SUMMARY | 2019-09-21 04:13 | XMS REPORT | Encounter Summary ---
Author Author [facility] Organization [facility] Address Unknown Phone Unavailable Care Team Providers Care Sourcing Assistant Name Role Phone Self, Lucius Heart MD PCP Encounter Details Care Team Description Date Type Department [facility], Lab Schedule 05/18/2009 [facility] Encounter Laboratory Services [address] [address] Social History Date Tobacco Use [...] Priority Date/Time Associated Diag nosis PROLACTIN Routine 05/18/2009 Galactorrhea no t 2:43 PM PRODUCT MANAGER FINANCIAL SERVICES Associated with Childbirth HCG QUANTITATIVE, BLOOD Routine 05/18/2009 Galact orrhea not 2:43 PM PRODUCT MANAGER FIN[employer]CIAL SERVICES Associated with Childbirth TSH Routine 05/18/2009 Galactorrhea no t 2:43 PM PRODUCT MANAGER FINANCIAL SERVICES Associated with Childbirth documented in this encounter Results * TSH (05/18/2009 2:43 PM PRODUCT MANAGER FINANCIAL SERVICES) TSH 2.17Comment: [facility] [address] - 4.82 uIU /ml [facility] ACCT#[id number], ,,,, [facility] Specimen Blood specimen (specimen) Performing Organization Address City/State/Zipcode Ph one Number [facility] [id number] [place] [address] * PROLACTIN (05/18/2009 2:43 PM PRODUCT MANAGER FINANCIAL SERVICES) Pathologist [facility] PROLACTIN 8.7 () ng/mL [facility] Comment: [facility] Reference Range [facility] Females Non- 3.0-30.0 10.0-209.0 Postmenopausal 2.0-20.0 Test performed at [facility] [place] [address] [place] [address] Director: JIM PHILIP DO,MPH [facility], ,,,, Specimen Blood specimen (specimen) Performing Organization Address City/State/Zipcode Ph one Number [facility] [id number] [place] [address] * HCG QUANTITATIVE, BLOOD (05/18/2009 2:43 PM PRODUCT MANAGER FINANCIAL SERVICES) HCG QUANT, LESS THAN 1 mIU/ml [facility] BLOOD Comment: [facility] Expected Range for non [facility] female = 0-6 mIU/ml. Weeks Post [...] 3rd International Standard (3rd IS). [facility] ACCT#[id number], ,,,, Specimen Blood specimen (specimen) Performing Organization Address City/State/Zipcode Ph one Number INTERFACE SYSTEM [facility]# [id number] [place] [address] [facility] [address] [facility] documented in this encounter Visit Diagnoses Diagnosis Galactorrhea not associated with childb irth documented in this encounter
--- OUTSIDE RECORDS SUMMARY | 2019-09-21 04:13 | XMS REPORT | Encounter Summary ---
Author Author [facility] Organization [facility] Address Unknown Phone Unavailable Care Team Providers Care Cook Room Supervisor Name Role Phone Self, Lucius Heart MD PCP Reason for Visit * Reason Comments Headache onset on monday. having v omiting today. light and sound sensitivity. Encounter Details Care Team Description Date Type Department JeramyyartAlden MD [address] [place] [address] Headache 03/04/2011 Emergency [facility] Emergency Department [address] [id number] Social History Date Tobacco Use Types Packs/Day [...] Signs Reading Time Taken Comments Vital Sign 125/86 03/04/2011 12:38 AM CDT Blood Pressure 98 03/04/2011 12:38 AM CDT Pulse 36.8 C (98.2 F) 03/04/2011 12:38 AM CDT Temperature 18 03/04/2011 12:38 AM CDT Respiratory Rate 98% 03/04/2011 12:38 AM CDT Oxygen Saturation - - Inhaled Oxygen Concentration 104.3 kg (230 lb) 03/04/2011 12:38 AM CDT Weight 154.9 cm (5' 1") 03/04/2011 12:38 AM CDT Height 43.46 03/04/2011 12:38 AM CDT Body Mass Index documented in this encounter Discharge Instructions * Patient Instructions* Norman López - 03/04/2011 10:02 AM CDT * Attachments The following attachments cannot be sent through Care Everywhere.* HEADACHE: AFTER YOUR VISIT (HUNGARIAN) documented in this encounter Medications at Time of Discharge Start Date End Date Medication Sig Dispensed Refills 02/28/2011 08/08/2011 clomiPHENE citrate Take 1 Tab by 30 Tab 0 (CLOMID) 50 mg Oral mouth daily. 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 documented as of this encounter ED Notes * Flory Coelho RN - 03/04/2011 12:54 AM CDT Patient discharged to home viaambulatory with steady gait with self. Patient st ates feeling better. Discharge information and education provided to patient. Questions answered, understanding of discharge instruction verbalized. Printed copy given. Patient given written instructions on meds and instructed not to drive or operat e machinery while taking phenergan or vicoden. * Alden Sanders MD - 03/04/2011 12:47 AM CDT HISTORY OF PRESENT ILLNESS Opal Trimble, a 20 y.o. female presents to the ED with a Chief Complaint of Headache Patient is a 20 y.o. female presenting with headaches. The history is provided b y the patient. Headache This is a new problem. The current episode started more than 2 days ago. The pro blem occurs constantly. The problem has been gradually worsening. The headache i s associated with bright light, emotional stress and the menstrual cycle. The pa in is located in the occipital, frontal and bilateral region. The quality of the pain is described as throbbing and dull. The pain is at a severity of 10/10. The pain does not radiate. Associated symptoms include malaise/fatigue, nausea and vomiting. Pertinent negatives include no anorexia, no fever, no chest pressure, no near-syncope, no orthopnea, no palpitations, no syncope and no shortness of breath. She has tried NSAIDs and acetaminophen (otc migraine medicine and tramad ol) for the symptoms. The treatment provided mild relief. REVIEW OF SYSTEMS Review of Systems Constitutional: Positive for malaise/fatigue and fatigue. Negative for fever and chills. HENT: Positive for congestion. Negative for sore throat, trouble swallowing, nec k pain, neck stiffness and sinus pressure. Eyes: Positive for photophobia. Negative for pain and visual disturbance. Respiratory: Negative for shortness of breath. Cardiovascular: Negative for chest pain, palpitations, orthopnea and syncope. Gastrointestinal: Positive for nausea and vomiting. Negative for abdominal pain. Skin: Negative for rash. Neurological: Positive for headaches. Negative for dizziness. PAST MEDICAL HISTORY REVIEWED Past Medical History Diagnosis Date ADD (attention deficit disorder with hyperactivity) Obesity (BMI 30.0-39.9) 2008 Depression cymbalta Past Surgical History Procedure Date Hx section 12/2005 Arrest of dilation @ 3 cm. Delivered in [place], [place] (rqt) No family history on file. History Social History Main Topics Smoking status: Current Everyday Smoker -- 1.0 packs/day for 5 years Types: Cigarettes Smokeless tobacco: Not on file Alcohol Use: Yes drinks on weekends Drug Use: No Sexually Active: Yes -- Male partner(s) Control/ Protection: None ALLERGIES Sulfa (sulfonamide antibiotics) HOME MEDICATIONS Patient's Home Medications New Prescriptions for this Encounter HYDROCODONE-ACETAMINOPHEN (NORCO) 5-325 MG ORAL TABLET Take 1-2 Tabs by mout h every 4 hours as needed for Pain. PROMETHAZINE (PHENERGAN) 25 MG ORAL TABLET Take 1 Tab by mouth every 6 hours as needed for Nausea. Current Home Medications CLOMIPHENE CITRATE (CLOMID) 50 MG ORAL TABLET Take 1 Tab by mouth daily. FLUTICASONE (FLONASE) 50 MCG/SPRAY BOTH NOSTRIL SPSN Administer 2 Sprays in each nostril daily. LORATADINE (CLARITIN) 10 MG ORAL TABLET Take 1 Tab by mouth daily. Medications Modified during this Encounter Medications Discontinued during this Encounter PHYSICAL EXAM Initial Vitals BP 03/04/1137 125/86 mmHg Pulse 03/04/1137 98 Resp 03/04/1137 18 Temp 03/04/1137 98.2 F (36.8 C) Temp src 03/04/1137 Oral SpO2 10/28/11 0038 98 % Physical Exam Nursing note and vitals reviewed. Constitutional: She is oriented to person, place, and time. She appears well-dev eloped and well-nourished. HENT: Head: Normocephalic and atraumatic. Right Ear: Hearing, tympanic membrane, external ear and ear canal normal. Left Ear: Hearing, tympanic membrane, external ear and ear canal normal. Nose: Mucosal edema and rhinorrhea present. No epistaxis. No foreign bodies. Ri ght sinus exhibits no maxillary sinus tenderness and no frontal sinus tenderness . Left sinus exhibits no maxillary sinus tenderness and no frontal sinus tendern ess. Mouth/Throat: Oropharynx is clear and moist and mucous membranes are normal. No oropharyngeal exudate, posterior oropharyngeal edema or posterior oropharyngeal erythema. Eyes: Extraocular motions are normal. Pupils are equal, round, and reactive to l ight. Neck: Normal range of motion. Neck supple. No JVD present. No tracheal deviation present. No thyromegaly present. Cardiovascular: Normal rate, regular rhythm, normal heart sounds and intact dist al pulses. Exam reveals no gallop and no friction rub. No murmur heard. Pulmonary/Chest: Effort normal and breath sounds normal. No stridor. No respirat ory distress. She has no wheezes. She has no rales. She exhibits no tenderness. Abdominal: Soft. Bowel sounds are normal. No tenderness. Musculoskeletal: Normal range of motion. Lymphadenopathy: She has no cervical adenopathy. Neurological: She is alert and oriented to person, place, and time. Skin: Skin is warm and dry. MDM Coding Reviewed: nursing note and vitals DIAGNOSTICS LAB: RADIOLOGY: EKG: PROCEDURES MEDICAL DECISION MAKING AND PLAN OF CARE Last vitals BP 125/86 | Pulse 98 | Temp(Src) 98.2 F (36.8 C) (Oral) | Resp 18 | Ht 5' 1" (1.549 m) | Wt 104.327 kg | BMI 43.46 kg/m2 | SpO2 98% | LMP 02/28 Try treating symptomatically. Patient refuses injection. Give zofran ODT and t brandon home pack of phenergan and norco. Check with PCP. Return if worsens. CLINICAL IMPRESSION Encounter Diagnoses Code Name Primary? 784.0 Headache CASE DISCUSSED PATIENT COUNSELING Diagnostics reviewed and questions answered. Diagnosis, treatment options and p remedios of care discussed with understanding verbalized. DISPOSITION, EDUCATION AND MEDICATION RECONCILIATION Medications reconciled. See after visit summary for patient education on discha rged patients. documented in this encounter Plan of Treatment Not on filedocumented as of this encounter Visit Diagnoses Diagnosis Headache(784.0) Headache documented in this encounter Administered Medications Action Date Dose Rate Site Medication Order MAR Action 03/04/2011 12:52 AM CDT 4 mg ondansetron (ZOFRAN ODT) tablet 4 mg Given 4 mg, Oral, ONE TIME ONLY, 1 dose, Mon03/04/11 at 0100, Routine documented in this encounter
--- OUTSIDE RECORDS SUMMARY | 2019-09-21 04:14 | XMS REPORT | Encounter Summary ---
Author Author [facility] Organization [facility] Address Unknown Phone Unavailable Care Team Providers Care Crime Analyst Name Role Phone Self, Lucius Heart MD PCP Reason for Visit * Reason Comments Medication Refill Encounter Details Care Team Description Date Type Department Self, Lucius Heart MD [address] [place] [address] 05/18/2009 Refill [facility] Primar y Care [place] [address] [place] [address] Social History Date Tobacco Use Types Packs/Day Years Used Never Smoker Drinks/Week oz/Week Comments Alcohol Use No Sex Assigned at Date Recorded Not on file Industry Job Start Date Occupation Not on file Not on file Not on file Travel End Travel History Travel Start No recent travel history available. documented as of this encounter Miscellaneous Notes * Telephone Encounter - Zeenat Sánchez - 05/18/2009 1:56 PM RETAIL SUPERVISOR Pt called in wanting refill on adderall, pt states she hasn't taken it for over 6 months and just "needs" a refills. When looking through pts chart, pt hasn't s een dr self in over a year. Request is denied today, explained to pt that she walker sn't seen dr and needs appt to get this med refills. I did offer pt appt but she states she will make an appt another day and hung up. [place] SUPERVISOR documented in this encounter Plan of Treatment Not on filedocumented as of this encounter Visit Diagnoses Not on filedocumented in this encounter
--- OUTSIDE RECORDS SUMMARY | 2019-09-21 04:14 | XMS REPORT | Encounter Summary ---
Author Author [facility] Organization [facility] Address Unknown Phone Unavailable Care Team Providers Care Assistant Women'S Soccer Coach Name Role Phone PCP Unavailable Reason for Referral * Consult, Test & Treat (8-30 Days) Referred By Contact Referred To Contact Status Reason Specialty Diagnoses / Procedures Mitra Palacios MD [address] [place] [address] Aisha Fagan, RD [address] [place] [address] Closed Diagnoses Obesity (BMI 30.0-39.9) Reason for Visit * Reason Comments Infertility states want to conceive, walker s been trying for 5 months, has menses q month Encounter Details Care Team Description Date Type Department Mitra Palacios MD [address] [place], [place] [id number] Obesity (BMI 30.0-39.9); Other Procreative Management Counseling and Advice; Dietary Surveillance and Counseling; Exercise Counseling 06/10/2008 [facility] [address] [place] [address] Social History Date Tobacco Use [...] Signs Reading Time Taken Comments Vital Sign 122/82 06/10/2008 4:30 PM SCARFER OPERATOR Blood Pressure - - Pulse 37.1 C (98.8 F) 06/10/2008 4:30 PM SCARFER OPERATOR Temperature - - Respiratory Rate - - Oxygen Saturation - - Inhaled Oxygen Concentration 96.2 kg (212 lb) 06/10/2008 4:30 PM SCARFER OPERATOR Weight 160 cm (5' 3") 06/10/2008 4:45 PM SCARFER OPERATOR Height 37.55 06/10/2008 4:30 PM SCARFER OPERATOR Body Mass Index documented in this encounter Progress Notes * Mitra Palacios MD - 06/11/2008 12:54 PM SCARFER OPERATOR OBESITY COUNSELING Patient with BMI of _ 37.6_. Class _2 _ obesity. Counseled patient regarding: Educated her regarding BMI and its classification of weight. I am concerned about her obesity and its adverse affect on her general / pregnan cy candelaria. Risk of heart attack / stroke / coronary artery disease / congestive heart failu re / hypertension / diabetes / joint problems commonly seen in obese individual. Increase risks of endometrial hyperplasia / uterine cancer. Should either take O CP or some sort of progestational agent to protect her endometrium. Overweight and especially obese women are subfertile. Weight loss is the corners tone of gaining fertility. Preconceptual counseling: Obesity women is at risk of fetus with heart defect and neural tube defect. Importance of higher dose of folate. At risk of gestational hypertension and gestational / pregestational diabetes. Difficulty with assess anatomy due to limitation of ultrasounds focal p oints. Difficulty assess growth with either ultrasound and fundal height measurem ent. Increased risk for IUFD and need for 3rd trimester surveillance. Technical difficult of emergency procedures during labor (AROM / ). Increase risk of shoulder dystocia in obese patients. Increase risk of macrosomia. Increase rate of operative vaginal delivery in obese patient. Technical difficult of monitor. Genetic imprinting on the fetus. More and more data is pointing to children born to obese mother has increased risk of having Metabolic X syndrome of obesity / CHTN / DM II. Recommendation: Nutritional counseling with goal of decreasing her BMI. Superior to near low 30s or high 20s. Gradual increase in exercise. At least 30-40 minutes for 3-4 times per week. If possible daily exercise. Increase folate intake to 4 mg daily to start at least 2 months before trying to get . All questions answered to her satisfaction. She is desires / decl rere nutritional counseling. Pt with pregestational _ _. She will need to see he r primary care physician to optimize her disease condition before trying to get . FER OPERATOR * Mitra Palacios MD - 06/10/2008 4:50 PM SCARFER OPERATOR HISTORY OF PRESENT ILLNESS Opal Trimble, a 18 y.o. female. HPI Unable to conceive for about 5 months. They say I'm infertile. She is about to g et in the next 2 months. She and boyfriend has been trying for about 5 m ont. They want to make the announcement that they're on their wedding day. After deliver of her baby, she was on the Mirena until Apr 13. She was then swit ched to the Depo-Provera about 6 months. She was placed on the patch for about 2 wk due to skin reaction. She was on OCP for about 1 month after that. She was on the NuvaRing for about 1 month. This was 5 months ago. She has regular period. Mild menstrual cramping. REVIEW OF SYSTEMS Review of Systems Constitutional: Negative for fever, chills and weight loss. PHYSICAL EXAM BP 122/82 | Temp 98.8 F (37.1 C) | Ht 5' 3" (1.6 m) | Wt 212 lb (96.163 kg) | LMP 06/08/2008 Physical Exam NAD ASSESSMENT and PLAN: Encounter Diagnoses Code Name Primary? Qualifier 278.00AE Obesity (BMI 30.0-39.9) Plan: AMB REFERRAL TO PHARMACY BILLING ADJUDICATOR V26.49 Other Procreative Management Counseling and Advice V65.3 Dietary Surveillance and Counseling V65.41 Exercise Counseling Emphasized to her that she is not infertile. Infertility is at least 12 months o f unprotected intercourse. Since she is only 18, it is reasonable to wait until at least 2 yr of unprotected intercourse before seeking fertility treatment. Discussed the potential side-effect of fertility drugs and multiple gestation an d potential of complications due to prematurity / increase congenital d efects / SAB. FER OPERATOR documented in this encounter Plan of Treatment Order Schedule Name Type Priority Associated Diag noses Ordered: 06/11/2008 AMB REFERRAL TO PHARMACY BILLING ADJUDICATOR Outpatient Routine Obes ity (BMI 30.0-39.9) Referral documented as of this encounter Visit Diagnoses Diagnosis Obesity (BMI 30.0-39.9) Obesity, unspecified Other procreative management counseling and advice Dietary surveillance and counseling Exercise counseling documented in this encounter
--- OUTSIDE RECORDS SUMMARY | 2019-09-21 04:14 | XMS REPORT | Encounter Summary ---
Author Author [facility] Organization [facility] Address Unknown Phone Unavailable Care Team Providers Care Research Test Engine Operator Name Role Phone PCP Unavailable Reason for Visit * Reason Comments Tongue Swelling Pain Encounter Details Care Team Description Date Type Department Rupesh Hoffman PA NO ADDRESS ON FILE Acute Sinusitis; Pierced Tongue Infection 02/12/2008 Office Visit [facility] [place] [address] [address] Social History Date Tobacco Use [...] Comments Vital Sign - - Blood Pressure 85 02/12/2008 4:00 PM CDT Pulse 37.1 C (98.8 F) 02/12/2008 4:00 PM CDT Temperature - - Respiratory Rate 98% 02/12/2008 4:00 PM CDT Oxygen Saturation - - Inhaled Oxygen Concentration - - Weight - - Height - - Body Mass Index documented in this encounter Progress Notes * Rupesh Hoffman PA - 02/12/2008 4:37 PM CDT +VANN, FRONTAL. NARES PATENT, TURBINATES RED AND SWOLLEN WITH PUSTULAR DRAINAGE EARS PATENT, TM'S RED DULL, POOR LIGHT REFLEX MOUTH MOIST PHARYNX RED, TONSILS SWOLLEN WITH EXUDATE NECK WITH ANTERIOR CERVICAL LYMPHADENOPATHY LUNGS CLEAR, HEART RRR, NO CLICKS, MURMUR OR RUBS. NO S3 documented in this encounter Plan of Treatment Not on filedocumented as of this encounter Visit Diagnoses Diagnosis Acute sinusitis Acute sinusitis, unspecified Pierced tongue infection Posttraumatic wound infection not elsew here classified documented in this encounter
--- OUTSIDE RECORDS SUMMARY | 2019-09-21 04:14 | XMS REPORT | Encounter Summary ---
Author Author [facility] Organization [facility] Address Unknown Phone Unavailable Care Team Providers Care Part Time Receptionist Name Role Phone PCP Unavailable Encounter Details Care Team Description Date Type Department Conversion, History 12/12/2007 Orders Only HIS CONVERSION Social History Date Tobacco Use Types Packs/Day Years Used Never Assessed Sex Assigned at Date Recorded Not on file Industry Job Start Date Occupation Not on file Not on file Not on file Travel End Travel History Travel Start No recent travel history available. documented as of this encounter Progress Notes * Minh Reid Conv Transcriptions - 02/09/2008 2:43 AM CDT 2 :43 AM CDT documented in this encounter Plan of Treatment Not on filedocumented as of this encounter Visit Diagnoses Not on filedocumented in this encounter
--- OUTSIDE RECORDS SUMMARY | 2019-09-21 04:14 | XMS REPORT | Encounter Summary ---
Author Author [facility] Organization [facility] Address Unknown Phone Unavailable Care Team Providers Care Egg Producer Name Role Phone Self, Lucius Heart MD PCP Reason for Visit * Reason Comments Depoprovera Injection DEPO INJ TODAY Encounter Details Care Team Description Date Type Department Fs Ob, Nurse Family Planning (Primary Dx) 02/03/[address] [address] Social History Date Tobacco Use [...] Reading Time Taken Comments Vital Sign 112/78 02/03/2009 9:39 AM CDT Blood Pressure - - Pulse 37 C (98.6 F) 02/03/2009 9:39 AM CDT Temperature - - Respiratory Rate - - Oxygen Saturation - - Inhaled Oxygen Concentration - - Weight - - Height - - Body Mass Index documented in this encounter Plan of Treatment Not on filedocumented as of this encounter Visit Diagnoses Diagnosis Family planning - Primary Other general counseling and advice for contraceptive management documented in this encounter
--- OUTSIDE RECORDS SUMMARY | 2019-09-21 04:14 | XMS REPORT | Encounter Summary ---
Author Author [facility] Organization [facility] Address Unknown Phone Unavailable Care Team Providers Care Social Work Program Coordinator Name Role Phone PCP Unavailable Reason for Visit * Reason Comments Sore Throat Sore throat, swollen tonsil s, and a fever for 2 days. Encounter Details Care Team Description Date Type Department Matthew Walker MD NO ADDRESS ON FILE Pharyngitis 07/06/2008 Emergency [facility] Emergency Department [address] [address] Social History Date Tobacco Use [...] Signs Reading Time Taken Comments Vital Sign 135/83 07/06/2008 12:03 PM AIRBRUSH ARTIST TECHNICAL Blood Pressure 125 07/06/2008 12:03 PM AIRBRUSH ARTIST TECHNICAL Pulse 36.8 C (98.3 F) 07/06/2008 12:03 PM AIRBRUSH ARTIST TECHNICAL Temperature 16 07/06/2008 12:03 PM AIRBRUSH ARTIST TECHNICAL Respiratory Rate 99% 07/06/2008 12:03 PM AIRBRUSH ARTIST TECHNICAL Oxygen Saturation - - Inhaled Oxygen Concentration - - Weight - - Height - - Body Mass Index documented in this encounter Discharge Instructions * Attachments The following attachments cannot be sent through Care Everywhere.* Sore Throat in Adults: After Your Visit documented in this encounter ED Notes * Tuan López Physician - 07/07/2008 10:46 AM AIRBRUSH ARTIST TECHNICAL * Matthew Walker MD - 07/06/2008 12:11 PM AIRBRUSH ARTIST TECHNICAL HISTORY OF PRESENT ILLNESS Opal Judie Atilio, a 18 y.o. female presents to the ED with a Chief Complaint of Sore Throat Patient is a 18 y.o. female presenting with sore throat. The history is provided by the patient. Sore Throat This is a new problem. The current episode started 2 days ago. The problem has n ot changed since onset. There has been no fever. Pertinent negatives include no diarrhea, no vomiting, no congestion, no shortness of breath and no cough. REVIEW OF SYSTEMS Review of Systems HENT: Negative for congestion. Respiratory: Negative for cough and shortness of breath. Gastrointestinal: Negative for vomiting and diarrhea. PAST MEDICAL HISTORY REVIEWED Past Medical History Diagnosis Date ADD (Attention Deficit Disorder with Hyperactivity) Obesity (BMI 30.0-39.9) 2008 Depression cymbalta Past Surgical History Procedure Date Hx section 12/2005 Arrest of dilation @ 3 cm. Delivered in [place], [place] (rqt) No family history on file. History Social History Main Topics Tobacco Use: Never Alcohol Use: No Drug Use: No Sexually Active: Yes -- Male partner(s) ALLERGIES Sulfa (sulfonamide antibiotics) HOME MEDICATIONS No prescriptions on file. PHYSICAL EXAM Initial Vitals BP 07/06/08 1203 135/83 mmHg Pulse 07/06/08 1203 125 Resp 07/06/08 1203 16 Temp 07/06/08 1203 98.3 F (36.8 C) Temp src -- SpO2 07/06/08 1203 99 % Physical Exam HENT: Head: Normocephalic. Right Ear: External ear normal. Left Ear: External ear normal. Mouth/Throat: No oropharyngeal exudate. Eyes: Conjunctivae are normal. Pupils are equal, round, and reactive to light. Neck: Normal range of motion. Neck supple. Pulmonary/Chest: Patient refused to let me listen to her chest, was too embarrassed Lymphadenopathy: She has no cervical adenopathy. Coding DIAGNOSTICS LAB: Results for orders placed during the hospital encounter of 07/06/2008 (from the past 24 hour(s)) RAPID STREP SCREEN WITH REFLEX CULTURE Component Value Range RAPID STREP SCREEN WITH REFLEX CULTURE - Value: SLIDE STREP SCREEN: STREP SCREEN - NEG. FOR GROUP A STREP. RADIOLOGY: EKG: PROCEDURES MEDICAL DECISION MAKING AND PLAN OF CARE Last vitals BP 135/83 | Pulse 125 | Temp 98.3 F (36.8 C) | Resp 16 | SpO2 9 9% CLINICAL IMPRESSION Encounter Diagnoses Code Name Primary? 462Y Pharyngitis CASE DISCUSSED PATIENT COUNSELING Diagnostics reviewed and questions answered. Diagnosis, treatment options and p remedios of care discussed with understanding verbalized. DISPOSITION, EDUCATION AND MEDICATION RECONCILIATION Medications reconciled. See after visit summary for patient education on discha rged patients. HOme. Recommend saline gargles, tylenol or advil as needed for pain. Followup if increased problems. RUSH ARTIST TECHNICAL documented in this encounter Plan of Treatment Not on filedocumented as of this encounter Procedures Comments Procedure Name Priority Date/Time Associated Diag nosis RAPID STREP SCREEN WITH Stat 07/06/2008 REFLEX CULTURE 12:10 PM AIRBRUSH ARTIST TECHNICAL documented in this encounter Results * RAPID STREP SCREEN WITH REFLEX CULTURE (07/06/2008 12:10 PM AIRBRUSH ARTIST TECHNICAL) STREPTOCOCCUS MODERATE GROUP C BETA [facility] GROUP A THROAT STREPTOCOCCUS ISOLATED FROM CENTER FO RT CULTURE CULTURE [facility] NO FURTHER STUDIES WILL BE DONE UNLESS ORDEREDComment: [facility] ACCT#[id number], ,,,, Specimen Respiratory sample (specimen) - Throat Performing Organization Address City/State/Zipcode Ph one Number INTERFACE SYSTEM [facility] MANUEL CEVALLOS# [id number] [place] [address] [facility] [facility] [address] [facility] documented in this encounter Visit Diagnoses Diagnosis Pharyngitis Acute pharyngitis documented in this encounter"
--- OUTSIDE RECORDS SUMMARY | 2019-09-21 04:14 | XMS REPORT | Encounter Summary ---
Author Author [facility] Organization [facility] Address Unknown Phone Unavailable Care Team Providers Care Crab Meat Processor Name Role Phone Self, Lucius Heart MD PCP Jeniffer Tamayo MD PCP Emelia Caldwell MD PCP Unavailable Encounter Details Care Team Description Date Type Department Conchita Abernathy, DISPLAY SCREEN FABRICATOR [address] [place] [address] Acute Sinusitis, Unspecified (Primary Dx ) 03/24/[address] [address] Social History Date Tobacco [...] of this encounter Visit Diagnoses Diagnosis Acute sinusitis, unspecified - Primary documented in this encounter
--- OUTSIDE RECORDS SUMMARY | 2019-09-21 04:14 | XMS REPORT | Encounter Summary ---
Author Author [facility] Organization [facility] Address Unknown Phone Unavailable Care Team Providers Care Assembler Fluorescent Lights Name Role Phone PCP Unavailable Encounter Details Care Team Description Date Type Department Conversion, History 01/28/2008 Orders Only HIS CONVERSION Social History Date Tobacco Use Types Packs/Day Years Used Never Assessed Sex Assigned at Date Recorded Not on file Industry Job Start Date Occupation Not on file Not on file Not on file Travel End Travel History Travel Start No recent travel history available. documented as of this encounter Progress Notes * Interface, Minh Donovan Conv Transcriptions - 02/11/2008 6:55 AM CDT 6 :55 AM CDT * Interface, Minh LemosTiVUS Conv Transcriptions - 02/09/2008 2:43 AM CDT 2 :43 AM CDT documented in this encounter Plan of Treatment Not on filedocumented as of this encounter Visit Diagnoses Not on filedocumented in this encounter
--- OUTSIDE RECORDS SUMMARY | 2019-09-21 04:14 | XMS REPORT | Encounter Summary ---
Author Author [facility] Organization [facility] Address Unknown Phone Unavailable Care Team Providers Care Frame Repairer Name Role Phone Self, Lucius Heart MD PCP Reason for Visit * Reason Comments Contraception having vaginal bleeding on Depo Provera Encounter Details Care Team Description Date Type Department Evangelista Marcos, DO [address] [place] [address] Family Planning (Primary Dx) 12/24/2008 [facility] [address] [place] [address] Social History Date Tobacco Use [...] Reading Time Taken Comments Vital Sign 120/62 12/24/2008 9:21 AM CDT Blood Pressure - - Pulse 37.1 C (98.7 F) 12/24/2008 9:21 AM CDT Temperature - - Respiratory Rate - - Oxygen Saturation - - Inhaled Oxygen Concentration 93 kg (205 lb) 12/24/2008 9:21 AM CDT Weight - - Height 36.31 06/10/2008 4:45 PM SALES CONTRACTOR Body Mass Index documented in this encounter Progress Notes * Evangelista Marcos DO - 12/24/2008 12:15 PM CDT HISTORY OF PRESENT ILLNESS Opal Trimble, a 18 y.o. female. HPI Ms. Trimble is concerned that she is having spotting with Depo Provera. She sta kayla that she doesn't want a period at all and no spotting. We discussed the rocío e effects of Depo Provera, namely, amenorrhea or intermenstrual spotting. REVIEW OF SYSTEMS ROS No review of systems was done today. PHYSICAL EXAM BP 120/62 | Temp 98.7 F (37.1 C) | Wt 205 lb (92.987 kg) | LMP Injection Physical Exam No physical was done today. ASSESSMENT and PLAN: Encounter Diagnoses Code Name Primary? Qualifier V25.09B Family Planning Yes Plan: MEDROXYPROGESTERONE (CONTRACEPTIVE) 150 MG/ML IM SUSP, MEDROXYPROGESTERON E (CONTRACEPTIVE) 150 MG/ML IM INJECTION Assessment: Spotting with Depo Provera Plan: Repeat Depo Provera today. Then, if she should have bleeding prior to 12 weeks, return immediately once the bleeding starts for repeat Depo Provera. documented in this encounter Plan of Treatment Not on filedocumented as of this encounter Visit Diagnoses Diagnosis Family planning - Primary Other general counseling and advice for contraceptive management documented in this encounter"
--- OUTSIDE RECORDS SUMMARY | 2019-09-21 04:14 | XMS REPORT | Encounter Summary ---
Author Author [facility] Organization [facility] Address Unknown Phone Unavailable Care Team Providers Care Learning And Development Coordinator Name Role Phone Self, Lucius Heart MD PCP Reason for Visit * Reason Comments Follow Up TRYING TO CONCEIVE ; 3 NEGA TIVE PREGN TESTS; BREASTS ARE SORE AND LEAKING; HAD BEEN TAKING DEPO SHOTS FOR AWHILE A ND SHOULD HAVE HAD A SHOT IN APR 2009 Encounter Details Care Team Description Date Type Department Evangelista Marcos DO [address] [place] [address] Galactorrhea not Associated with Childbi rth (Primary Dx) 05/18/2009 Office Visit [facility] [address] [place] [address] Social History Date Tobacco Use [...] Signs Reading Time Taken Comments Vital Sign 122/78 05/18/2009 2:12 PM OUTREACH PROFESSIONAL Blood Pressure - - Pulse 36.9 C (98.5 F) 05/18/2009 2:12 PM OUTREACH PROFESSIONAL Temperature - - Respiratory Rate - - Oxygen Saturation - - Inhaled Oxygen Concentration - - Weight - - Height - - Body Mass Index documented in this encounter Progress Notes * Evangelista Marcos DO - 05/18/2009 3:45 PM OUTREACH PROFESSIONAL HISTORY OF PRESENT ILLNESS Opal Trimble, a 19 y.o. female. HPI Ms. Trimble is here with a complaint of breast leaking bilaterally. She denies taking control, but the story is that she didn't return last month for her Depo Provera (which has a side-effect of galactorrhea. REVIEW OF SYSTEMS ROS Review of Systems - General ROS: negative for weight changes, fever Psychological ROS: negative for anxiety or depressive symptoms Breast ROS: negative for breast lumps or pain Positive for white discharge bilaterally Genito-Urinary ROS: negative for dysuria, trouble voiding, or hematuria Neurological ROS: negative for TIA or stroke symptoms PHYSICAL EXAM BP 122/78 | Temp 98.5 F (36.9 C) | LMP 04/16/2009 Physical Exam No physical was done today. ASSESSMENT and PLAN: Encounter Diagnoses Code Name Primary? Qualifier 611.6 Galactorrhea not Associated with Childbirth Yes Plan: HCG QUANTITATIVE, BLOOD, TSH, PROLACTIN Assessment: Galactorrhea Plan: Quantitative HCG, TSH, Prolactin level. If these test are all Negative, we will start her on Parlodel to see if that will get rid of the leaking. EACH PROFESSIONAL documented in this encounter Plan of Treatment Not on filedocumented as of this encounter Results * PROLACTIN (05/18/2009 2:43 PM OUTREACH PROFESSIONAL) PROLACTIN 8.7 () ng/mL [facility] Comment: [facility] Reference Range [facility] Females Non- 3.0-30.0 10.0-209.0 Postmenopausal 2.0-20.0 Test performed at [facility] [address] [place] [address] Director: JIM PHILIP DO,MPH [facility] ,,,, Specimen Blood specimen (specimen) Performing Organization Address City/State/Zipcode Ph one Number INTERFACE SYSTEM [facility] CLIA# [id number] [place] [address] [address] [place] [address] * TSH (05/18/2009 2:43 PM OUTREACH PROFESSIONAL) TSH 2.17Comment: [facility] 0.34 - 4.82 uIU /ml [facility] ACCT#[id number], ,,,, [facility] Specimen Blood specimen (specimen) Performing Organization Address City/[facility] Ph one Number INTERFACE SYSTEM [facility] MANUEL CEVALLOS# [id number] [place] [address] * HCG QUANTITATIVE, BLOOD (05/18/2009 2:43 PM OUTREACH PROFESSIONAL) HCG QUANT, LESS THAN 1 mIU/ml [facility] BLOOD Comment: [facility] Expected Range for non [facility] female = 0-6 mIU/ml. Weeks Post [...] 3rd International Standard (3rd IS). [facility] ACCT#[id number], ,,,, Specimen Blood specimen (specimen) Performing Organization Address City/[facility]/Zipcode Ph one Number INTERFACE SYSTEM [facility] MANUEL CEVALLOS# [id number] [place] [address] documented in this encounter Visit Diagnoses Diagnosis Galactorrhea not associated with childb irth - Primary documented in this encounter"
--- OUTSIDE RECORDS SUMMARY | 2019-09-21 04:14 | XMS REPORT | Encounter Summary ---
Author Author [facility] Organization [facility] Address Unknown Phone Unavailable Care Team Providers Care Deck Mate Name Role Phone Self, Lucius Heart MD PCP Reason for Visit * Reason Comments Medication Refill Encounter Details Care Team Description Date Type Department Self, Lucius Heart MD [address] [place] [address] 04/28/2009 Refill [facility] Primar y Care [place] [address] [place] [address] Social History Date Tobacco Use [...] * Telephone Encounter - Zeenat Sánchez - 04/28/2009 2:50 PM SWING FRAME GRINDER OPERATOR Pt requesting refill on barb, last filled 01/11/08. Request is denied, pt will need appt. laquita notified. G FRAME GRINDER OPERATOR documented in this encounter Plan of Treatment Not on filedocumented as of this encounter Visit Diagnoses Not on filedocumented in this encounter
--- OUTSIDE RECORDS SUMMARY | 2019-09-21 04:14 | XMS REPORT | Encounter Summary ---
Author Author [facility] Organization [facility] Address Unknown Phone Unavailable Care Team Providers Care Ultrasound Technol Name Role Phone PCP Unavailable Encounter Details Care Team Description Date Type Department Conversion, History 01/11/2008 Orders Only HIS CONVERSION Social History Date [...] 6 :55 AM CDT * Interface, Minh LemosInterface [employer] Conv Transcriptions - 02/09/2008 2:43 AM CDT 2 :43 AM CDT documented in this encounter Plan of Treatment Not on filedocumented as of this encounter Visit Diagnoses Not on filedocumented in this encounter
--- OUTSIDE RECORDS SUMMARY | 2019-09-21 04:14 | XMS REPORT | Encounter Summary ---
Author Author [facility] Organization [facility] Address Unknown Phone Unavailable Care Team Providers Care Advanced Practice Professional Name Role Phone Self, Lucius Heart MD PCP Jeniffer Tamayo MD PCP Emelia Caldwell MD PCP Unavailable Encounter Details Care Team Description Date Type Department Self, Lucius Heart MD [address] [place] [address] Contraceptive Mangmt NEC (Primary Dx) 09/12/2007 Outpatient [facility] Consol idated Historical [facility] [address] [place] [address] Social History Date Tobacco Use Types Packs/Day Years Used Never Assessed Sex Assigned at Date Recorded Not on file Industry Job Start Date Occupation Not on file Not on file Not on file Travel End Travel History Travel Start No recent travel history available. documented as of this encounter Plan of Treatment Not on filedocumented as of this encounter Visit Diagnoses Diagnosis Contraceptive mangmt NEC - Primary Other general counseling and advice for contraceptive management documented in this encounter
--- OUTSIDE RECORDS SUMMARY | 2019-09-21 04:14 | XMS REPORT | Encounter Summary ---
Author Author [facility] Organization [facility] Address Unknown Phone Unavailable Care Team Providers Care Power Plant Operators Supervisor Name Role Phone Self, Lucius Heart MD PCP Jeniffer Tamayo MD PCP Emelia Caldwell MD PCP Unavailable Encounter Details Care Team Description Date Type Department Self, Lucius Heart MD [address] [place] [address] Attention Deficit Disorder with Hyperact ivity (Primary Dx) 08/17/2007 Outpatient [facility] Consol idated Historical [facility] [address] [place] [address] Social History Date Tobacco Use Types Packs/Day [...] encounter Visit Diagnoses Diagnosis Attention deficit disorder with hyperac tivity(314.01) - Primary Attention deficit disorder with hyperac tivity documented in this encounter
--- OUTSIDE RECORDS SUMMARY | 2019-09-21 04:14 | XMS REPORT | Encounter Summary ---
Author Author [facility] Organization [facility] Address Unknown Phone Unavailable Care Team Providers Care Vaccine Key Customer Leader Name Role Phone Self, Lucius Heart MD PCP Jeniffer Tamayo MD PCP Emelia Caldwell MD PCP Unavailable Encounter Details Care Team Description Date Type Department Self, Lucius Heart MD [address] [place] [address] 06/12/2007 Outpatient [facility] [address] [facility] Historical Social History Date Tobacco Use Types Packs/Day [...] Associated Diag nosis HCG QUANTITATIVE, BLOOD Routine 06/12/2007 11:00 AM COOK FAST FOOD documented in this encounter Results * HCG QUANTITATIVE, BLOOD (06/12/2007 11:00 AM COOK FAST FOOD) HCG QUANT, LESS THAN 1 mIU/ml INTERFACE BLOOD Comment: SYSTEM Expected Range for non female = 0-6 mIU/ml. Weeks Post LMP [...] the equivalent 3rd International Standard (3rd IS). Specimen Performing Organization Address City/State/Zipcode Ph one Number INTERFACE SYSTEM INTERFACE SYSTEM Refer to clinic/hospital department documented in this encounter Visit Diagnoses Not on filedocumented in this encounter
--- OUTSIDE RECORDS SUMMARY | 2019-09-21 04:14 | XMS REPORT | Encounter Summary ---
Author Author [facility] Organization [facility] Address Unknown Phone Unavailable Care Team Providers Care Repack Room Worker Name Role Phone Self, Lucius Heart MD PCP Encounter Details Care Team Description Date Type Department Fs Ob, Nurse Family Planning (Primary Dx) 11/10/[address] [address] Social History Date Tobacco Use [...]
--- OUTSIDE RECORDS SUMMARY | 2019-09-21 04:14 | XMS REPORT | Encounter Summary ---
Author Author [facility] Organization [facility] Address Unknown Phone Unavailable Care Team Providers Care Rail Express Clerk Name Role Phone Self, Lucius Heart MD PCP Jeniffer Tamayo MD PCP Emelia Caldwell MD PCP Unavailable Encounter Details Care Team Description Date Type Department Self, Lucius Heart MD [address] [place] [address] 12/12/2007 Outpatient [facility] [address] [facility] [...] Name Priority Date/Time Associated Diag nosis HCG QUALITATIVE, URINE Routine 12/12/2007 9:52 AM CDT documented in this encounter Results * HCG QUALITATIVE, URINE (12/12/2007 9:52 AM CDT) HCG QUAL URINE NEGATIVE NEG INTERFACE SYSTEM Specimen Performing Organization Address City/State/Zipcode Ph one Number INTERFACE SYSTEM INTERFACE SYSTEM Refer to clinic/hospital department documented in this encounter Visit Diagnoses Not on filedocumented in this encounter
--- OUTSIDE RECORDS SUMMARY | 2019-09-21 04:14 | XMS REPORT | Encounter Summary ---
Author Author [facility] Organization [facility] Address Unknown Phone Unavailable Care Team Providers Care Computer Networker Name Role Phone Self, Lucius Heart MD PCP Jeniffer Tamayo MD PCP Emelia Caldwell MD PCP Unavailable Encounter Details Care Team Description Date Type Department Self, Lucius Heart MD [address] [place] [address] Attention Deficit Disorder with Hyperact ivity (Primary Dx) 06/12/2007 Outpatient [facility] Consol idated Historical [facility] [address] [place] [address] Social History Date Tobacco Use Types Packs/Day [...]
--- OUTSIDE RECORDS SUMMARY | 2019-09-21 04:14 | XMS REPORT | Encounter Summary ---
Author Author [facility] Organization [facility] Address Unknown Phone Unavailable Care Team Providers Care Freight Separator Name Role Phone Self, Lucius Heart MD PCP Jeniffer Tamayo MD PCP Emelia Caldwell MD PCP Unavailable Encounter Details Care Team Description Date Type Department Mitra Palacios MD [address] [employer] [place], [place] [id number] 01/28/2008 Inpatient [facility] [address] [facility] Historical Social History Date Tobacco [...] Associated Diag nosis HCG QUANTITATIVE, BLOOD Routine 01/28/2008 3:25 PM CDT documented in this encounter Results * HCG QUANTITATIVE, BLOOD (01/28/2008 3:25 PM CDT) HCG QUANT, LESS THAN 1 mIU/ml INTERFACE [...]
--- OUTSIDE RECORDS SUMMARY | 2019-09-21 04:14 | XMS REPORT | Encounter Summary ---
Author Author [facility] Organization [facility] Address Unknown Phone Unavailable Care Team Providers Care Welding Systems And Equipment Repairer Name Role Phone Self, Lucius Heart MD PCP Jeniffer Tamayo MD PCP Emelia Caldwell MD PCP Unavailable Encounter Details Care Team Description Date Type Department Evangelista Marcos, DO [address] [place] [address] Unspecified Symptom Associated with Fema le Genital Organs (Primary Dx) 06/12/[address] [facility] Consol idated Historical [facility] [address] [place] [address] Social History Date Tobacco Use Types Packs/Day Years Used Never Assessed Sex Assigned at Date Recorded Not on file Industry Job Start Date Occupation Not on file Not on file Not on file Travel End Travel History Travel Start No recent travel history available. documented as of this encounter Plan of Treatment Not on filedocumented as of this encounter Visit Diagnoses Diagnosis Unspecified symptom associated with fem candi genital organs - Primary documented in this encounter
--- OUTSIDE RECORDS SUMMARY | 2019-09-21 04:14 | XMS REPORT | Encounter Summary ---
Author Author [facility] Organization [facility] Address Unknown Phone Unavailable Care Team Providers Care Protective Services Officer Name Role Phone PCP Unavailable Reason for Visit * Reason Comments Medication Refill Encounter Details Care Team Description Date Type Department Lucius Murry MD [address] [place] [address] 07/31/2008 Refill [facility] Primar y Care [place] [address] [place] [address] Social History Date Tobacco Use [...] * Telephone Encounter - Zeenat Sánchez - 07/31/2008 3:28 PM CDT Pt called office wanting refills on adderall and cymbalta. When i looked in pts chart, pt hasn't been seen by dr murry in quite some time. I called pt and asked who has been filling these meds for her and she stated "i haven't taken them for 4 months but want to restart". Explained to pt that I cannot just restart these meds and Dr Murry is out of the office this afternoon. Told pt to call his office tomorrow and speak with them about restarting these meds. documented in this encounter Plan of Treatment Not on filedocumented as of this encounter Visit Diagnoses Not on filedocumented in this encounter
--- OUTSIDE RECORDS SUMMARY | 2019-09-21 04:14 | XMS REPORT | Encounter Summary ---
Author Author [facility] Organization [facility] Address Unknown Phone Unavailable Care Team Providers Care Fur Operator Name Role Phone Self, Lucius Heart MD PCP Jeniffer Tamayo MD PCP Emelia Caldwell MD PCP Unavailable Encounter Details Care Team Description Date Type Department Self, Lucius Heart MD [address] [place] [address] 08/17/2007 Outpatient [facility] [address] [facility] [...] Priority Date/Time Associated Diag nosis HCG QUALITATIVE, SERUM Routine 08/17/2007 4:05 PM CDT documented in this encounter Results * HCG QUALITATIVE, SERUM (08/17/2007 4:05 PM CDT) HCG QUAL, BLOOD NEGATIVE NEG INTERFACE SYSTEM Specimen Performing Organization Address City/State/Zipcode Ph one Number INTERFACE SYSTEM INTERFACE SYSTEM Refer to clinic/hospital department documented in this encounter Visit Diagnoses Not on filedocumented in this encounter
--- OUTSIDE RECORDS SUMMARY | 2019-09-21 04:14 | XMS REPORT | Encounter Summary ---
Author Author [facility] Organization [facility] Address Unknown Phone Unavailable Care Team Providers Care Heel Boom Operator Name Role Phone Self, Lucius Heart MD PCP Jeniffer Tamayo MD PCP Emelia Caldwell MD PCP Unavailable Encounter Details Care Team Description Date Type Department Self, Lucius Heart MD [address] [place] [address] Depressive Disorder NEC (Primary Dx) 01/11/[address] [facility] [address] [place] [address] Social History Date Tobacco Use Types Packs/Day Years Used Never Assessed Sex Assigned at Date Recorded Not on file Industry Job Start Date Occupation Not on file Not on file Not on file Travel End Travel History Travel Start No recent travel history available. documented as of this encounter Plan of Treatment Not on filedocumented as of this encounter Visit Diagnoses Diagnosis Depressive disorder NEC - Primary Depressive disorder, not elsewhere clas sified documented in this encounter
--- OUTSIDE RECORDS SUMMARY | 2019-09-21 04:14 | XMS REPORT | Encounter Summary ---
Author Author [facility] Organization [facility] Address Unknown Phone Unavailable Care Team Providers Care Manager Sales And Marketing Name Role Phone Self, Lucius Heart MD PCP Reason for Visit * Reason Comments Immunization/Injection depo provera Encounter Details Care Team Description Date Type Department Mitra Palacios MD [address] [place], [place] [id number] Family Planning; Examination or Test, Negative Result 08/19/[address] [address] Social History Date Tobacco Use [...] Signs Reading Time Taken Comments Vital Sign 130/82 08/19/2008 2:15 PM CDT Blood Pressure - - Pulse - - Temperature - - Respiratory Rate - - Oxygen Saturation - - Inhaled Oxygen Concentration - - Weight - - Height - - Body Mass Index documented in this encounter Plan of Treatment Not on filedocumented as of this encounter Procedures Comments Procedure Name Priority Date/Time Associated Diag nosis POC , URINE Routine 08/19/2008 Examination or Test, Negative Result documented in this encounter Results * POC , URINE (08/19/2008) HCG QUAL URINE NEG POC , neg URINE SPECIFIC 1.001 - 1.035 GRAVITY UA HCG QUAL URINE COMMENT Specimen Urine specimen (specimen) documented in this encounter Visit Diagnoses Diagnosis Family planning Other general counseling and advice for contraceptive management examination or test, negative result documented in this encounter
--- OUTSIDE RECORDS SUMMARY | 2019-09-21 04:14 | XMS REPORT | Encounter Summary ---
Author Author [facility] Organization [facility] Address Unknown Phone Unavailable Care Team Providers Care Administrative Asst Name Role Phone PCP Unavailable Reason for Visit * Reason Comments Hip Pain Encounter Details Care Team Description Date Type Department Lucius Murry MD [address] [place] [address] ERRONEOUS ENCOUNTER--DISREGARD (Primary Dx) 08/05/2008 Office Visit [facility]3] Primar y Care [place] [address] [place] [address] Social History Date Tobacco Use Types Packs/Day Years Used Never Smoker Drinks/Week oz/Week Comments Alcohol Use No Sex Assigned at Date Recorded Not on file Industry Job Start Date Occupation Not on file Not on file Not on file Travel End Travel History Travel Start No recent travel history available. documented as of this encounter Progress Notes * Lucius Murry MD - 08/05/2008 4:12 PM CDT Error; pt no showed. documented in this encounter Plan of Treatment Not on filedocumented as of this encounter Visit Diagnoses Diagnosis ERRONEOUS ENCOUNTER--DISREGARD - Primar y documented in this encounter
--- OUTSIDE RECORDS SUMMARY | 2019-09-21 04:14 | XMS REPORT | Encounter Summary ---
Author Author [facility] Organization [facility] Address Unknown Phone Unavailable Care Team Providers Care Correctional Maintenance Technician Name Role Phone Self, Lucius Heart MD PCP Jeniffer Tamayo MD PCP Emelia Caldwell MD PCP Unavailable Encounter Details Care Team Description Date Type Department Self, Lucius Heart MD [address] [place] [address] Attention Deficit Disorder with Hyperact ivity (Primary Dx) 12/12/2007 Outpatient [facility] Consol idated Historical [facility] [address] [place] [address] Social History Date Tobacco Use Types Packs/Day [...]
--- OUTSIDE RECORDS SUMMARY | 2019-09-21 04:15 | XMS REPORT | Encounter Summary ---
Author Author [facility] Organization [facility] Address Unknown Phone Unavailable Care Team Providers Care Embroidery Operator Name Role Phone Self, Lucius Heart MD PCP Jeniffer Tamayo MD PCP Emelia Caldwell MD PCP Unavailable Encounter Details Care Team Description Date Type Department Jr Delta Vernon [address] [place] [phone] ACUTE GASTRITIS W/O HEMORRHAGE (Primary Dx) 02/09/2005 Emergency [facility] Emergency Department [address] [address] Social History Date Tobacco Use [...] Procedure Name Priority Date/Time Associated Diag nosis LIPASE Routine 02/09/2005 8:53 PM CDT COMPREHENSIVE METABOLIC Routine 02/09/2005 PANEL 8:53 PM CDT HCG QUALITATIVE, SERUM Routine 02/09/2005 CBC WITH MANUAL Routine 02/09/2005 DIFFERENTIAL documented in this encounter Results * LIPASE (02/09/2005 8:53 PM CDT) LIPASE 229 114 - 286 U/L INTERFACE SYSTEM Specimen Narrative Performed At Preop Test? N INTERFACE SYSTEM Performing Organization Address City/State/[facility] one Number INTERFACE SYSTEM INTERFACE SYSTEM Refer to clinic/hospital department * COMPREHENSIVE METABOLIC PANEL (02/09/2005 8:53 PM CDT) GLUCOSE 88 70 - 110 mg/dl INTERFACE SYSTEM BUN 12.0 7 - 20 mg/dl INTERFACE SYSTEM CREATININE 0.8 0.6 - 1.0 mg/dl INTERFACE SYSTEM BUN/CREAT RATIO 15.0 10 - 20 INTERFACE SYSTEM SODIUM 137 135 - 145 mmol/L INTERFACE SYSTEM POTASSIUM 3.7 3.5 - 5.1 mmol/L INTERFACE SYSTEM CHLORIDE 103 98 - 107 mmol/L INTERFACE SYSTEM CO2 24.5 22 - 31 mmol/L INTERFACE SYSTEM ANION GAP 13 4 - 20 INTERFACE SYSTEM CALCIUM 8.7 8.5 - 10.1 mg/dl INTERFACE SYSTEM ALBUMIN 3.9 3.2 - 4.5 g/dl INTERFACE SYSTEM TOTAL PROTEIN 6.9 6.4 - 8.2 g/dl INTERFACE SYSTEM GLOBULIN (CALC) 3.0 INTERFACE SYSTEM ALBUMIN/GLOBULI 1.3 INTERFACE N RATIO SYSTEM BILIRUBIN TOTAL 0.3 <1.1 mg/dl INTERFACE SYSTEM ALKALINE 114 107 - 213 IU/L INTERFACE PHOSPHATASE SYSTEM AST 15 10 - 40 IU/L INTERFACE SYSTEM ALT 31 25 - 70 IU/L INTERFACE SYSTEM Specimen Narrative Performed At Preop Test? N INTERFACE SYSTEM Performing Organization Address [facility] one Number INTERFACE SYSTEM INTERFACE SYSTEM Refer to clinic/hospital department * CBC WITH MANUAL DIFFERENTIAL (02/09/2005) WBC 9.7 4.0 - 10.8 x10E3 INTERFACE SYSTEM RBC 4.34 4.2 - 5.4 x10E6 INTERFACE SYSTEM HEMOGLOBIN 12.4 11.5 - 15.0 g/dL INTERFACE SYSTEM HEMATOCRIT 36.4 34 - 44 % INTERFACE SYSTEM MCV 83.8 81.0 - 99.0 fL INTERFACE SYSTEM MCH 28.5 27 - 33 pg INTERFACE SYSTEM MCHC 34.0 32 - 35 g/dL INTERFACE SYSTEM RDW 15.5 12.1 - 16.7 % INTERFACE SYSTEM PLATELETS 257 130 - 400 x10E3 INTERFACE SYSTEM MPV 8.1 7.4 - 10.4 fL INTERFACE SYSTEM NEUTROPHILS 54.2 37.0 - 75.0 % INTERFACE SYSTEM MONOCYTES 7.0 0.0 - 12.0 % INTERFACE SYSTEM EOSINOPHILS 4.4 0.0 - 7.0 % INTERFACE SYSTEM BASOPHILS 0.7 0.0 - 2.5 % INTERFACE SYSTEM NEUTROPHIL 5.3 2.0 - 6.9 x10E3 INTERFACE ABSOLUTE SYSTEM MONOCYTE 0.7 0.0 - 0.9 x10E3 INTERFACE ABSOLUTE SYSTEM EOSINOPHIL 0.4 0.0 - 0.7 x10E3 INTERFACE ABSOLUTE SYSTEM BASOPHILS 0.1 0 - 0.2 x10E3 INTERFACE ABSOLUTE SYSTEM BASOPHILS 1 % INTERFACE SYSTEM EOSINOPHILS 3 % INTERFACE SYSTEM NEUTROPHILS, 58 % INTERFACE SEG SYSTEM LYMPHOCYTES 34 % INTERFACE SYSTEM MONOCYTE 4 % INTERFACE SYSTEM PLATELET EST. Normal INTERFACE SYSTEM WBC ESTIMATE Normal INTERFACE SYSTEM Specimen Narrative Performed At Preop Test? N INTERFACE SYSTEM Performing Organization Address City/State/Zipcode Ph one Number INTERFACE SYSTEM INTERFACE SYSTEM Refer to clinic/hospital department * HCG QUALITATIVE, SERUM (02/09/2005) HCG QUAL, BLOOD NEGATIVE NEG INTERFACE SYSTEM Specimen Narrative Performed At Preop Test? N INTERFACE SYSTEM Performing Organization Address [facility] one Number INTERFACE SYSTEM INTERFACE SYSTEM Refer to clinic/hospital department documented in this encounter Visit Diagnoses Diagnosis Acute gastritis without mention of hemo rrhage - Primary documented in this encounter
--- OUTSIDE RECORDS SUMMARY | 2019-09-21 04:15 | XMS REPORT | Encounter Summary ---
Author Author [facility] Organization [facility] Address Unknown Phone Unavailable Care Team Providers Care Car Hop Name Role Phone Self, Lucius Heart MD PCP Jeniffer Tamayo MD PCP Emelia Caldwell MD PCP Unavailable Encounter Details Care Team Description Date Type Department Iram Day ARNP [address] [place] [address] Poisoning-vitamins NEC (Primary Dx) 05/13/1992 Outpatient Historical Social History Date Tobacco Use Types Packs/Day Years Used Never Assessed Sex Assigned at Date Recorded Not on file Industry Job Start Date Occupation Not on file Not on file Not on file Travel End Travel History Travel Start No recent travel history available. documented as of this encounter Plan of Treatment Not on filedocumented as of this encounter Visit Diagnoses Diagnosis Poisoning-vitamins NEC - Primary Poisoning by vitamins, not elsewhere cl assified documented in this encounter
--- OUTSIDE RECORDS SUMMARY | 2019-09-21 04:15 | XMS REPORT | Encounter Summary ---
Author Author [facility] Organization [facility] Address Unknown Phone Unavailable Care Team Providers Care Steam Finisher Name Role Phone Self, Lucius Heart MD PCP Jeniffer Tamayo MD PCP Emelia Caldwell MD PCP Unavailable Encounter Details Care Team Description Date Type Department Osiel Che MD [address] [place] [address] Chronic fatigue syndrome (Primary Dx) 11/13/2000 Outpatient [facility] Consol idated Historical [facility] [address] [place] [address] Social History Date Tobacco Use Types Packs/Day Years Used Never Assessed Sex Assigned at Date Recorded Not on file Industry Job Start Date Occupation Not on file Not on file Not on file Travel End Travel History Travel Start No recent travel history available. documented as of this encounter Plan of Treatment Not on filedocumented as of this encounter Visit Diagnoses Diagnosis Chronic fatigue syndrome - Primary documented in this encounter
--- OUTSIDE RECORDS SUMMARY | 2019-09-21 04:15 | XMS REPORT | Encounter Summary ---
Author Author [facility] Organization [facility] Address Unknown Phone Unavailable Care Team Providers Care Rivet Sticker Name Role Phone Self, Lucius Heart MD PCP Jeniffer Tamayo MD PCP Emelia Caldwell MD PCP Unavailable Encounter Details Care Team Description Date Type Department Self, Lucius Heart MD [address] [place] [address] Dermatitis due to plant (Primary Dx) 10/26/[address] [facility] Consol idated Historical [facility] [address] [place] [address] Social History Date Tobacco Use Types Packs/Day Years Used Never Assessed Sex Assigned at Date Recorded Not on file Industry Job Start Date Occupation Not on file Not on file Not on file Travel End Travel History Travel Start No recent travel history available. documented as of this encounter Plan of Treatment Not on filedocumented as of this encounter Visit Diagnoses Diagnosis Dermatitis due to plant - Primary Contact dermatitis and other eczema due to plants (except food) documented in this encounter
--- OUTSIDE RECORDS SUMMARY | 2019-09-21 04:15 | XMS REPORT | Encounter Summary ---
Author Author [facility] Organization [facility] Address Unknown Phone Unavailable Care Team Providers Care Naturopathic Oncology Provider Name Role Phone Self, Lucius Heart MD PCP Jeniffer Tamayo MD PCP Emelia Caldwell MD PCP Unavailable Encounter Details Care Team Description Date Type Department Iram Day ARNP [address] [place] [address] Contusion of eyeball (Primary Dx) 03/13/1995 Outpatient Historical Social History Date Tobacco Use [...] as of this encounter Visit Diagnoses Diagnosis Contusion of eyeball - Primary documented in this encounter
--- OUTSIDE RECORDS SUMMARY | 2019-09-21 04:15 | XMS REPORT | Encounter Summary ---
Author Author [facility] Organization [facility] Address Unknown Phone Unavailable Care Team Providers Care Wall Crane Operator Name Role Phone Self, Lucius Heart MD PCP Jeniffer Tamayo MD PCP Emelia Caldwell MD PCP Unavailable Encounter Details Care Team Description Date Type Department Evangelista Marcos, DO [address] [place] [address] 01/03/2007 Outpatient [facility] [address] RE[facility] Historical [...] Procedure Name Priority Date/Time Associated Diag nosis CHLAMYDIA/N. GONORRHOEAE, Routine 01/03/2007 DNA documented in this encounter Results * CHLAMYDIA/N. GONORRHOEAE, DNA (01/03/2007) CHLAMYDIA DNA NOT DETECTED NOT DETECTED INTERFACE AMPLIFICATION SYSTEM GC DNA NOT DETECTED NOT DETECTED INTERFACE AMPLIFICATION Comment: SYSTEM Test performed [facility] [address] [place] [address] Specimen Performing Organization Address City/State/Zipcode Ph one Number INTERFACE SYSTEM INTERFACE SYSTEM Refer to clinic/hospital department documented in this encounter Visit Diagnoses Not on filedocumented in this encounter
--- OUTSIDE RECORDS SUMMARY | 2019-09-21 04:15 | XMS REPORT | Encounter Summary ---
Author Author [facility] Organization [facility] Address Unknown Phone Unavailable Care Team Providers Care Bottom Cementer Name Role Phone Self, Lucius Heart MD PCP Jeniffer Tamayo MD PCP Emelia Caldwell MD PCP Unavailable Encounter Details Care Team Description Date Type Department Osiel Che MD [address] [place] [address] 06/22/2004 Outpatient [facility] [address] [facility] Historical Social History Date Tobacco [...] Procedure Name Priority Date/Time Associated Diag nosis DRUG SCREEN, URINE Routine 06/22/2004 11:02 AM [facility] documented in this encounter Results * DRUG SCREEN, URINE (06/22/2004 11:02 AM [facility]) AMPHETAMINE Negative INTERFACE QUAL, URINE SYSTEM BARBITURATE Negative INTERFACE QUAL, URINE SYSTEM BENZODIAZEPINE Negative INTERFACE QUAL, URINE SYSTEM COCAINE METAB Negative INTERFACE QUAL URINE SYSTEM CANNABINOIDS Negative INTERFACE QUAL, URINE SYSTEM METHAMPHETAMINE Negative INTERFACE QUAL, URINE SYSTEM OPIATE QUAL, Negative INTERFACE URINE SYSTEM PCP QUAL, URINE Negative INTERFACE SYSTEM TRICYCLICS Negative INTERFACE QUAL, URINE Comment: SYSTEM Chain of Custody Handling was not performed on this specimen. This screen will not meet medical-legal requirements. CUTOFF LIMITS Amphetamines 1000 ng/ml Barbiturates 200 ng/ml Benzodiazepines 300 ng/ml Cocaine metabolite 300 ng/ml Marijuana metabolites 50 ng/ml Methamphetamine 1000 ng/ml Methadone 300 ng/ml Opiates 300 ng/ml Propoxyphene 300 ng/nl Tricyclic Antidepressants 300 ng/ml Specimen Performing Organization Address City/State/[facility] Ph one Number INTERFACE SYSTEM INTERFACE SYSTEM Refer to clinic/hospital department documented in this encounter Visit Diagnoses Not on filedocumented in this encounter
--- OUTSIDE RECORDS SUMMARY | 2019-09-21 04:15 | XMS REPORT | Encounter Summary ---
Author Author [facility] Organization [facility] Address Unknown Phone Unavailable Care Team Providers Care Digital Cartographic Technician Name Role Phone Self, Lucius Heart MD PCP Jeniffer Tamayo MD PCP Emelia Caldwell MD PCP Unavailable Encounter Details Care Team Description Date Type Department Osiel Che MD [address] [place] [address] 11/13/2000 Outpatient [facility] [address] [address] Social History Date Tobacco Use [...]
--- OUTSIDE RECORDS SUMMARY | 2019-09-21 04:15 | XMS REPORT | Encounter Summary ---
Author Author [facility] Organization [facility] Address Unknown Phone Unavailable Care Team Providers Care Plaster Mold Maker Name Role Phone Self, Lucius Heart MD PCP Jeniffer Tamayo MD PCP Emelia Caldwell MD PCP Unavailable Encounter Details Care Team Description Date Type Department Osiel Che MD [address] [place] [address] Allergic rhinitis NEC (Primary Dx) 08/08/2002 Outpatient [facility] Consol idated Historical [facility] [address] [place] [address] Social History Date Tobacco Use Types Packs/Day [...] this encounter Visit Diagnoses Diagnosis Allergic rhinitis NEC - Primary Allergic rhinitis due to other allergen documented in this encounter
--- OUTSIDE RECORDS SUMMARY | 2019-09-21 04:15 | XMS REPORT | Encounter Summary ---
Author Author [facility] Organization [facility] Address Unknown Phone Unavailable Care Team Providers Care Health And Safety Coordinator Name Role Phone Self, Lucius Heart MD PCP Jeniffer Tamayo MD PCP Emelia Caldwell MD PCP Unavailable Encounter Details Care Team Description Date Type Department Salima Saul, EXTRA HAND [address] [place] [address] 06/27/2001 Outpatient [facility] Consol idated Historical [facility] [address] [place] [address] Social History Date Tobacco Use Types Packs/Day [...]
--- OUTSIDE RECORDS SUMMARY | 2019-09-21 04:15 | XMS REPORT | Encounter Summary ---
Author Author [facility] Organization [facility] Address Unknown Phone Unavailable Care Team Providers Care Script Editor Name Role Phone Self, Lucius Heart MD PCP Jeniffer Tamayo MD PCP Emelia Caldwell MD PCP Unavailable Encounter Details Care Team Description Date Type Department Mignon Hummel MD NO ADDRESS ON FILE Ant disloc elbow-closed (Primary Dx) 01/20/1996 Outpatient Historical Social History Date Tobacco Use [...] as of this encounter Visit Diagnoses Diagnosis Ant disloc elbow-closed - Primary Closed anterior dislocation of elbow documented in this encounter
--- OUTSIDE RECORDS SUMMARY | 2019-09-21 04:15 | XMS REPORT | Encounter Summary ---
Author Author [facility] Organization [facility] Address Unknown Phone Unavailable Care Team Providers Care Group Home Supervisor Name Role Phone Self, Lucius Heart MD PCP Jeniffer Tamayo MD PCP Emelia Caldwell MD PCP Unavailable Encounter Details Care Team Description Date Type Department Osiel Che MD [address] [place] [address] DYSURIA (Primary Dx) 07/29/2002 Outpatient [facility] Consol idated Historical [facility] [address] [place] [address] Social History Date Tobacco Use Types Packs/Day Years Used Never Assessed Sex Assigned at Date Recorded Not on file Industry Job Start Date Occupation Not on file Not on file Not on file Travel End Travel History Travel Start No recent travel history available. documented as of this encounter Plan of Treatment Not on filedocumented as of this encounter Visit Diagnoses Diagnosis Dysuria - Primary documented in this encounter
--- OUTSIDE RECORDS SUMMARY | 2019-09-21 04:15 | XMS REPORT | Encounter Summary ---
Author Author [facility] Organization [facility] Address Unknown Phone Unavailable Care Team Providers Care Piano Machine Operator Name Role Phone Self, Lucius Heart MD PCP Jeniffer Tamayo MD PCP Emelia Caldwell MD PCP Unavailable Encounter Details Care Team Description Date Type Department Iram Day ARNP [address] [place] [address] 07/17/1996 Outpatient Historical Social History Date Tobacco Use [...]
--- OUTSIDE RECORDS SUMMARY | 2019-09-21 04:15 | XMS REPORT | Encounter Summary ---
Author Author [facility] Organization [facility] Address Unknown Phone Unavailable Care Team Providers Care Frame Welder Cargo Utility Trailers Name Role Phone Self, Lucius Heart MD PCP Jeniffer Tamayo MD PCP Emelia Caldwell MD PCP Unavailable Encounter Details Care Team Description Date Type Department Osiel Che MD [address] [place] [address] Acute upper respiratory infections of un specified site (Primary Dx) 06/28/1999 Outpatient [facility] Consol idated Historical [address] [address] Social History Date Tobacco Use Types Packs/Day Years Used Never Assessed Sex Assigned at Date Recorded Not on file Industry Job Start Date Occupation Not on file Not on file Not on file Travel End Travel History Travel Start No recent travel history available. documented as of this encounter Plan of Treatment Not on filedocumented as of this encounter Visit Diagnoses Diagnosis Acute upper respiratory infections of u nspecified site - Primary documented in this encounter
--- OUTSIDE RECORDS SUMMARY | 2019-09-21 04:15 | XMS REPORT | Encounter Summary ---
Author Author [facility] Organization [facility] Address Unknown Phone Unavailable Care Team Providers Care Receiving Team Member Name Role Phone Self, Lucius Heart MD PCP Jeniffer Tamayo MD PCP Emelia Caldwell MD PCP Unavailable Encounter Details Care Team Description Date Type Department Osiel Che MD [address] [place] [address] 08/08/2002 Outpatient [facility] [address] RE[facility] [...]
--- OUTSIDE RECORDS SUMMARY | 2019-09-21 04:15 | XMS REPORT | Encounter Summary ---
Author Author [facility] Organization [facility] Address Unknown Phone Unavailable Care Team Providers Care Pharmacy Analyst Name Role Phone Self, Lucius Heart MD PCP Jeniffer Tamayo MD PCP Emelia Caldwell MD PCP Unavailable Encounter Details Care Team Description Date Type Department Evangelista Marcos, DO [address] [place] [address] Unspecified Symptom Associated with Fema le Genital Organs (Primary Dx) 01/03/2007 Outpatient [facility] Consol idated Historical [facility] [address] [place] [address] Social History Date Tobacco Use Types Packs/Day [...]
--- OUTSIDE RECORDS SUMMARY | 2019-09-21 04:15 | XMS REPORT | Encounter Summary ---
Author Author [facility] Organization [facility] Address Unknown Phone Unavailable Care Team Providers Care Broom Machine Operator Name Role Phone Self, Lucius Heart MD PCP Jeniffer Tamayo MD PCP Emelia Caldwell MD PCP Unavailable Encounter Details Care Team Description Date Type Department Osiel Che MD [address] [place] [address] Attention Deficit Disorder without Menti on of Hyperactivity (Primary Dx) 02/13/2007 Outpatient [facility] [place] Consol idated Historical [address] [address] Social History Date Tobacco Use Types Packs/Day [...] encounter Visit Diagnoses Diagnosis Attention deficit disorder without ment ion of hyperactivity - Primary documented in this encounter
--- OUTSIDE RECORDS SUMMARY | 2019-09-21 04:15 | XMS REPORT | Encounter Summary ---
Author Author [facility] Organization [facility] Address Unknown Phone Unavailable Care Team Providers Care Buttonhole Facer Name Role Phone Self, Lucius Heart MD PCP Jeniffer Tamayo MD PCP Emelia Caldwell MD PCP Unavailable Encounter Details Care Team Description Date Type Department Ting Nguyen ARNP [address] [place] [address] Dermatitis due to plant (Primary Dx) 08/30/[address] [facility] Consol idated [address] [address] Social History Date Tobacco Use Types Packs/Day [...]
--- OUTSIDE RECORDS SUMMARY | 2019-09-21 04:15 | XMS REPORT | Encounter Summary ---
Author Author [facility] Organization [facility] Address Unknown Phone Unavailable Care Team Providers Care Blindmaker Name Role Phone Self, Lucius Heart MD PCP Jeniffer Tamayo MD PCP Emelia Caldwell MD PCP Unavailable Encounter Details Care Team Description Date Type Department Osiel Che MD [address] [place] [address] 07/29/2002 Outpatient [facility] [address] [facility] [...]
--- OUTSIDE RECORDS SUMMARY | 2019-09-21 04:15 | XMS REPORT | Encounter Summary ---
Author Author [facility] Organization [facility] Address Unknown Phone Unavailable Care Team Providers Care Soot Blower Name Role Phone Self, Lucius Heart MD PCP Jeniffer Tamayo MD PCP Emelia Caldwell MD PCP Unavailable Encounter Details Care Team Description Date Type Department Osiel Che MD [address] [place] [address] ABDOMINAL PAIN UNSPEC SITE (Primary Dx) 02/18/2005 Outpatient [facility] [address] [place] [address] Social History Date Tobacco Use [...] as of this encounter Visit Diagnoses Diagnosis Abdominal pain, unspecified site - Prim jerry documented in this encounter
--- OUTSIDE RECORDS SUMMARY | 2019-09-21 04:15 | XMS REPORT | Encounter Summary ---
Author Author [facility] Organization [facility] Address Unknown Phone Unavailable Care Team Providers Care Room Service Server Name Role Phone Self, Lucius Heart MD PCP Jeniffer Tamayo MD PCP Emelia Caldwell MD PCP Unavailable Encounter Details Care Team Description Date Type Department Osiel Che MD [address] [place] [address] Acute sinusitis, unspecified (Primary Dx ) 08/06/1998 Outpatient [place] [address] [place] [address] Social History Date Tobacco Use Types Packs/Day [...]
--- OUTSIDE RECORDS SUMMARY | 2019-09-21 04:15 | XMS REPORT | Encounter Summary ---
Author Author [facility] Organization [facility] Address Unknown Phone Unavailable Care Team Providers Care Resource Conservation Specialist Name Role Phone Self, Lucius Heart MD PCP Jeniffer Tamayo MD PCP Emelia Caldwell MD PCP Unavailable Encounter Details Care Team Description Date Type Department Nile Layne [phone] Acute pharyngitis (Primary Dx) 11/11/1998 Outpatient Historical Social History Date Tobacco Use [...] of this encounter Visit Diagnoses Diagnosis Acute pharyngitis - Primary documented in this encounter
--- OUTSIDE RECORDS SUMMARY | 2019-09-21 04:15 | XMS REPORT | Encounter Summary ---
Author Author [facility] Organization [facility] Address Unknown Phone Unavailable Care Team Providers Care Human Performance Technologist Name Role Phone Self, Lucius Heart MD PCP Jeniffer Tamayo MD PCP Emelia Caldwell MD PCP Unavailable Encounter Details Care Team Description Date Type Department Osiel Che MD [address] [place] [address] Other Malaise and Fatigue (Primary Dx) 01/04/2007 Outpatient [facility] Consol idated Historical [address] [address] Social History Date Tobacco Use Types Packs/Day Years Used Never Assessed Sex Assigned at Date Recorded Not on file Industry Job Start Date Occupation Not on file Not on file Not on file Travel End Travel History Travel Start No recent travel history available. documented as of this encounter Plan of Treatment Not on filedocumented as of this encounter Visit Diagnoses Diagnosis Other malaise and fatigue - Primary documented in this encounter
--- OUTSIDE RECORDS SUMMARY | 2019-09-21 04:15 | XMS REPORT | Encounter Summary ---
Author Author [facility] Organization [facility] Address Unknown Phone Unavailable Care Team Providers Care Flare Maker Name Role Phone Self, Lucius Heart MD PCP Jeniffer Tamayo MD PCP Emelia Caldwell MD PCP Unavailable Encounter Details Care Team Description Date Type Department Jr [address], [address] [place] [address] Injury, other and unspecified, elbow, fo rearm, and wrist (Primary Dx) 01/19/1996 Outpatient Historical Social History Date Tobacco Use [...] as of this encounter Visit Diagnoses Diagnosis Injury, other and unspecified, elbow, f orearm, and wrist - Primary documented in this encounter
--- OUTSIDE RECORDS SUMMARY | 2019-09-21 04:15 | XMS REPORT | Encounter Summary ---
Author Author [facility] Organization [facility] Address Unknown Phone Unavailable Care Team Providers Care Transformer Stock Clerk Name Role Phone Self, Lucius Heart MD PCP Jeniffer Tamayo MD PCP Emelia Caldwell MD PCP Unavailable Encounter Details Care Team Description Date Type Department Osiel Che MD [address] [place] [address] Noninf gastroenterit NEC (Primary Dx) 05/30/2002 Outpatient [facility] Consol idated Historical [address] [address] Social History Date Tobacco Use Types Packs/Day Years Used Never Assessed Sex Assigned at Date Recorded Not on file Industry Job Start Date Occupation Not on file Not on file Not on file Travel End Travel History Travel Start No recent travel history available. documented as of this encounter Plan of Treatment Not on filedocumented as of this encounter Visit Diagnoses Diagnosis Noninf gastroenterit NEC - Primary Other and unspecified noninfectious gas troenteritis and colitis documented in this encounter
--- OUTSIDE RECORDS SUMMARY | 2019-09-21 04:15 | XMS REPORT | Encounter Summary ---
Author Author [facility] Organization [facility] Address Unknown Phone Unavailable Care Team Providers Care Jammer Hooker Name Role Phone Self, Lucius Heart MD PCP Jeniffer Tamayo MD PCP Emelia Caldwell MD PCP Unavailable Encounter Details Care Team Description Date Type Department Osiel Che MD [address] [place] [address] PAINFUL RESPIRATION (Primary Dx) 05/19/2004 Emergency [facility] Emergency Department [address] [address] Social History Date Tobacco Use [...] as of this encounter Visit Diagnoses Diagnosis Painful respiration - Primary documented in this encounter
--- OUTSIDE RECORDS SUMMARY | 2019-09-21 04:15 | XMS REPORT | Encounter Summary ---
Author Author [facility] Organization [facility] Address Unknown Phone Unavailable Care Team Providers Care Dolly Driver Name Role Phone Self, Lucius Heart MD PCP Jeniffer Tamayo MD PCP Emelia Caldwell MD PCP Unavailable Encounter Details Care Team Description Date Type Department Osiel Che MD [address] [place] [address] Exam-medicolegal reasons (Primary Dx) 06/22/2004 Outpatient [facility] Consol idated Historical [address] [address] Social History Date Tobacco Use Types Packs/Day Years Used Never Assessed Sex Assigned at Date Recorded Not on file Industry Job Start Date Occupation Not on file Not on file Not on file Travel End Travel History Travel Start No recent travel history available. documented as of this encounter Plan of Treatment Not on filedocumented as of this encounter Visit Diagnoses Diagnosis Exam-medicolegal reasons - Primary Examination for medicolegal reason documented in this encounter
--- OUTSIDE RECORDS SUMMARY | 2019-09-21 04:15 | XMS REPORT | Encounter Summary ---
Author [facility] Address Unknown Phone Unavailable Care Team Providers Care Optical Effects Layout Person Name Role Phone Self, Lucius Heart MD PCP Jeniffer Tamayo MD PCP Emelia Caldwell MD PCP Unavailable Encounter Details Care Team Description Date Type Department Osiel Che MD [address] [place] [address] 01/04/2007 Outpatient [facility] Services [address] [address] Social History Date Tobacco Use [...] Name Priority Date/Time Associated Diag nosis LAB ONE SPECIMEN Routine 01/04/2007 COLLECTION 5:17 PM CDT documented in this encounter Results * LAB ONE SPECIMEN COLLECTION (01/04/2007 5:17 PM CDT) KALINA SENT TO [facility] INTERFACE COLLECTION Comment: SYSTEM THIS TEST HAS BEEN SENT TO [facility] WILL ONLY SEND THE TEST RESULT TO THE DR'S OFFICE NOT TO [facility]. IF YOU ARE MISSING RESULTS PLEASE CALL [employer] AT [phone]. Specimen Performing Organization Address City/State/Zipcode Ph one Number INTERFACE SYSTEM INTERFACE SYSTEM Refer to clinic/hospital department documented in this encounter Visit Diagnoses Not on filedocumented in this encounter
--- OUTSIDE RECORDS SUMMARY | 2019-09-21 04:16 | XMS REPORT | Continuity of Care Document ---
[...] - SMOKING CESSATION 05/16/2013 NILS LILLY APRN 46 1.9 SINUSITIS ACUTE 05/16/2013 NILS LILLY APRN V65.42 COUNSELING - SMOKING CESSATION 09/09/2013 NILS LILLY APRN 616.10 VAGINITIS AND VULVOVAGINITIS UNSPECIFIED 09/09/2013 NILS LILLY APRN V7 4.5 STD SCREEN Procedures Code Description [place] [address] ROUT INE VENIPUNCTURE 09/09/2013 37136 TRIC [place] (IN-HOUSE) 09/09/2013 08207 SYPH ILLIS[facility] 09/10/2013 91773 HIV ([facility]) 09/10/2013 48704 GC/C HLAM PROBE ([facility]) 09/10/2013 80104 CULT URE UROGENITAL 09/12/2013 Results Test Result Range PDM - 09 PANEL (PROFILE 1) - 02/27/19 17 :47 Creatinine 212.2 mg/dL > or = 20.0 pH 7.2 4.5-9.0 Oxidant NEGATIVE mcg/mL <200 Amphetamines NEGATIVE ng/mL <500 medMATCH Amphetamines CONSISTENT NRG Benzodiazepines NEGATIVE ng/mL <100 medMATCH Benzodiazepines CONSISTENT NRG Marijuana Metabolite POSITIVE ng/mL <20 Cocaine Metabolite NEGATIVE ng/mL <150 medMATCH Cocaine Metab CONSISTENT NRG Opiates NEGATIVE ng/mL <100 medMATCH Opiates CONSISTENT NRG Oxycodone NEGATIVE ng/mL <100 medMATCH Oxycodone CONSISTENT NRG COMMENT NRG Marijuana Metabolite 172 ng/mL <5 medMATCH Marijuana Metab INCONSISTENT N RG Barbiturates NEGATIVE ng/mL <300 medMATCH Barbiturates CONSISTENT NRG Methadone Metabolite NEGATIVE ng/mL <100 medMATCH Methadone Metab CONSISTENT NRG Phencyclidine NEGATIVE ng/mL <25 medMATCH Phencyclidine CONSISTENT NRG Encounters ACCT No. Visit Date/Time Discharge Status Pt. Type Provider Facility Loc./Unit Complaint [id number] 09/09/2013 16:53:00 09/09/2013 23:59: 59 CLS Outpatient NILS LILLY APRN [id number] 05/16/2013 10:16:00 05/16/2013 23:59: 59 [place] [id number] 11/20/2008 10:48:00 11/20/2008 23:59:5 9 [facility] Outpatient JOANN KIM [id number] 02/27/2019 17:20:00 02/27/2019 23:59:5 9 [facility] Outpatient SHERICE THOMPSON LAC [id number] 02/27/2019 17:20:00 Document Registration
--- OUTSIDE RECORDS SUMMARY | 2019-09-21 04:16 | XMS REPORT ---
Author Author Opal Starkey Doctor Organization [facility] Address Unknown Phone Unavailable Care Team Providers Care Step Down Specialist Name Role Phone Migration, Doctor Unavailable Unavailable PROBLEMS Type Condition ICD9-CM Code [id number] Code Onset Dates Condition S tatus SNOMED Code Problem Screening examination for venereal disease V74.5 Active 356259648 Problem Breakthrough bleeding on depo provera N92.1 Active 41329001 Problem Anxiety F41.9 Active 05494626 Problem Counseling on substance use and abuse V65.42 Active 750841198 Problem Unspecified vaginitis and vulvovaginitis 616.10 Active 260178812 Problem Acute sinusitis, unspecified 461.9 A ctive 37104435 Problem Raynaud''s disease without gangrene I73.00 Active [id number] ALLERGIES No Information ENCOUNTERS Encounter Location Date Diagnosis [address] [id number] [place] [address] Feb, Medication management Z79.[address] [id number] [place] [address] Feb, Skin infection L08.9 ; Anxiety F41.9 ; R aynaud''s disease without gangrene I73.00 and Medication management Z79.[address] [id number] [place] [address] Dec, [address] [id number] [place] [address] Nov, Morbid obesity E66.01 and Br eakthrough bleeding on depo provera N92.1 [facility] [address] [id number] [place] [address] Nov, [address] [id number] [place] [address] Oct, [facility] [address] [id number] [place] [address] September, Encounter for Depo-Provera c ontraception Z30.42 [facility] MANUEL OLIVER [address] [id number] [place] [address] September, [facility] MANUEL OLIVER [address] [id number] [address] Aug, disorder O92.70 [facility] MARQUITA [address] [id number] [place] [address] Aug, Morbid obesity E66.01 ; disord er O92.70 and Raynaud''s disease without gangrene I73.00 [facility] [address] [facility] [id number] [address] [place] [address] Dec, Cough R05 ; Congestion of up per respiratory tract J98.8 and BMI 40.0-44.9, adult Z68.41 [facility] [address] [place] [address] Dec, 16 Dental examination Z01.20 [facility] [address] [place] [address] Aug, [facility] [address] [place] [id number] [address] [place] [address] Aug, [facility] [address] [place] [address] September, [facility] [address] [facility] [id number] [address] [place] [address] September, [facility] [address] [facility] [id number] [address] [place] [address] September, [facility] [address] [facility] [id number] [address] [place] [address] September, [facility] [address] [facility] [id number] [address] [place] [address] September, [facility] [address] [id number] [address] [place] [address] September, [facility] [address] [id number] [address] [place] [address] May, [facility] [address] [id number] [address] [place] [address] May, [facility] [address] [facility] [id number] [address] [place] [address] May, [facility] [address] [id number] [address] [place] [address] May, [facility] [address] [facility] [id number] [address] [place] [address] Apr, [facility] [address] [facility] [id number] [address] [place] [address] Apr, IMMUNIZATIONS No Known Immunizations SOCIAL HISTORY Never Assessed REASON FOR VISIT PLAN OF CARE VITAL SIGNS MEDICATIONS Unknown [...]
--- OUTSIDE RECORDS SUMMARY | 2019-09-21 04:16 | XMS REPORT ---
Author Author Opal Starkey Doctor Organization [facility] Address Unknown Phone Unavailable Care Team Providers Care Cork Floor Installer Name Role Phone Migration, Doctor Unavailable Unavailable PROBLEMS Type Condition ICD9-CM Code [id number] Code Onset Dates Condition S tatus SNOMED Code Problem Screening examination for venereal disease V74.5 Active 088971364 Problem Breakthrough bleeding on depo provera N92.1 Active 22722876 Problem Anxiety F41.9 Active 09749544 Problem Counseling on substance use and abuse V65.42 Active 696794531 Problem Unspecified vaginitis and vulvovaginitis 616.10 Active 277247496 Problem Acute sinusitis, unspecified 461.9 A ctive 55536362 Problem Raynaud''s disease without gangrene I73.00 Active [id number] ALLERGIES No Information ENCOUNTERS Encounter Location Date Diagnosis [address] [id number] [place] [address] Feb, Medication management Z79.899 [address] [place] [address] Feb, Skin infection L08.9 ; Anxiety F41.9 ; R aynaud''s disease without gangrene I73.00 and Medication management Z79.899 [place] [address] [place] [address] Dec, [address] [place] [address] Nov, Morbid obesity E66.01 and Br eakthrough bleeding on depo provera N92.[address] [id number] [place] [address] Nov, [address] [place] [address] Oct, [place] [address] [place] [address] September, Encounter for Depo-Provera c ontraception Z30.[address] [facility] [address] [place] [address] September, [facility] [address] [place] [address] Aug, disorder O92.70 [facility] KASIE [address] [id number] [place] [address] Aug, Morbid obesity E66.01 ; disord er O92.70 and Raynaud''s disease without gangrene I73.00 [facility] [address] [facility] [id number] [address] [place] [address] Dec, Cough R05 ; Congestion of up per respiratory tract J98.8 and BMI 40.0-44.9, adult Z68.41 [facility] [address] [place] [address] Dec, [address] [facility] [address] [address] Aug, [facility] [address] [address] Aug, [facility] [address] [address] September, [facility] [address] [address] September, [facility] [address] [address] September, [facility] [address] [address] September, [facility] [address] [address] September, [facility] [address] [address] September, [facility] [address] [id number] [place] [address] May, [facility] [address] [id number] [place] [address] May, [facility] [address] [id number] [place] [address] May, [facility] [address] [id number] [place] [address] May, [facility] [address] [id number] [place] [address] Apr, [facility] [address] [place] [id number] [place] [address] Apr, IMMUNIZATIONS No Known Immunizations SOCIAL HISTORY Never Assessed REASON FOR VISIT PLAN OF CARE VITAL SIGNS Height 60 in 2013-05-16 Weight 174.9 lbs 2013-05-16 Temperature 98.6 degrees Fahrenheit 2013-05-16 Heart Rate 86 bpm 2013-05-16 Respiratory Rate 18 2013-05-16 Blood pressure systolic 116 mmHg 2013-05-16 Blood pressure diastolic 70 mmHg 2013-05-16 MEDICATIONS Unknown Medications RESULTS No Results PROCEDURES No Known procedures INSTRUCTIONS MEDICATIONS ADMINISTERED No Known Medications MEDICAL (GENERAL) HISTORY Type Description Date Medical History Migraines Medical History Ulcers Medical History Anemia Medical History raynauds syndrome Surgical History 01/03/16 Surgical History Gastric Sleeve 12/23/11 Surgical History Internal Bleeding 10/25/13 Hospitalization History Previous surgeries
[2019-09-21 04:24] LABS: BILIRUBIN,URINE NEGATIVE (NEGATIVE); CLARITY,URINE CLEAR; COLOR,URINE YELLOW; GLUCOSE, URINE (UA) NEGATIVE (NEGATIVE); KETONES,URINE NEGATIVE (NEGATIVE); LEUKOCYTE ESTERASE ,URINE NEGATIVE (NEGATIVE); NITRITE,URINE NEGATIVE (NEGATIVE); PROTEIN,URINE NEGATIVE (NEGATIVE)
[2019-09-21 04:29] LABS: BASOPHILS % (AUTO) 0 % (0-10); EOSINOPHILS # (AUTO) 0.2 10^3/uL (0.0-0.3); EOSINOPHILS % (AUTO) 2 % (0-10); HEMATOCRIT 35 % (35-52); HEMOGLOBIN 11.8 G/DL (11.5-16.0); LYMPHOCYTES # (AUTO) 2.3 X 10^3 (1.0-4.0); LYMPHOCYTES % (AUTO) 20 % (12-44); MEAN CORPUSCULAR HEMOGLOBIN 28 PG (25-34); MEAN CORPUSCULAR HGB CONC 34 G/DL (32-36); MEAN CORPUSCULAR VOLUME 84 FL (80-99); MEAN PLATELET VOLUME 9.2 FL (7.4-10.4); MONOCYTES # (AUTO) 0.9 X 10^3 (0.0-1.0); MONOCYTES % (AUTO) 8 % (0-12); NEUTROPHILS # (AUTO) 8.2 X 10^3 (1.8-7.8); NEUTROPHILS % (AUTO) 71 % (42-75); PLATELET COUNT 267 10^3/uL (130-400); RED CELL DISTRIBUTION WIDTH 16.2 % (10.0-14.5); WHITE BLOOD COUNT 11.5 10^3/uL (4.3-11.0)
[2019-09-21 04:34] LABS: RBC,URINE 0-2 /HPF
[2019-09-21 04:35] LABS: BACTERIA,URINE TRACE /HPF
--- NOTE | 2019-09-21 05:06 | ED GU-Female ---
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 denies vaginal bleeding. verbalized risk for miscarriage due to only having 1 tube. Nursing Sepsis Screen: No Definite Risk Source: patient, old records Exam Limitations: no limitations History of Present Illness Date Seen by Provider: September 21, 2019 Time Seen by Provider: 04:06 Initial Comments This 29-year-old 7 para 1 at approximately 7 weeks gestational age presents to the emergency room with complaints of lower abdominal pain that woke her up this morning. She denies any diarrhea or constipation. She has had vomiting she associates with morning sickness. She reports "shocks of pain into my legs and vaginal area". Pain has actually improved some now since onset. 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 uA. She reports getting weekly ultrasounds. She has ultrasound on file with the hospital from September 09 demonstrating an intrauterine gestational sac with no pole. Indication for this ultrasound was right sided pelvic pain. There was no evidence of ectopic . Patient reports an ultrasound performed in the clinic on the showed a fetus with heartbeat. No hCG level is available. Patient denies any urinary changes or fever. Allergies and Home Medications Allergies Coded Allergies: Sulfa (Sulfonamide Antibiotics) (Verified Allergy, Mild, HIVES, 06/20/19) Home Medications Acetaminophen 500 Mg Tablet, 1,000 MG PO Q8H PRN for PAIN-MILD (1-4) Prescribed by: NAIN AU on 06/28/19 151 Ibuprofen 600 Mg Tablet, 600 MG PO Q6H PRN for PAIN-MILD Prescribed by: NAIN AU on 06/28/19 1510 Oxycodone Hcl 5 Mg Tab, 5-10 MG PO Q4H PRN for PAIN-SEVERE (8-10) Prescribed by: NAIN AU on 06/28/19 1510 Patient Home Medication List Home Medication List Reviewed: Yes Review of Systems Review of Systems Constitutional: no symptoms reported EENTM: no symptoms reported Respiratory: no symptoms reported Cardiovascular: no symptoms reported Gastrointestinal: see HPI Genitourinary: see HPI : Yes Musculoskeletal: no symptoms reported Skin: no symptoms reported Psychiatric/Neurological: No Symptoms Reported Endocrine: No Symptoms Reported Hematologic/Lymphatic: No Symptoms Reported Past Vyrctjn-Hmzrjf-Eklwsi Hx Past Med/Social Hx: Reviewed Nursing Past Med/Soc Hx Patient Social History Alcohol Use: Denies Use Recreational Drug Use: No Drug of Choice: THC Smoking Status: Former Smoker Type Used: Cigarettes Former Smoker, Quit: Jul 06, 2017 2nd Hand Smoke Exposure: No Recent Foreign Travel: No Contact w/Someone Who Travel: No Recent Infectious Disease Expo: No Recent Hopitalizations: No Physical Abuse: No Sexual Abuse: No Mistreated: No Fear: No Immunizations Up To Date Tetanus Booster (TDap): Less than 5yrs PED Vaccines UTD: Yes Seasonal Allergies Seasonal Allergies: Yes Past Medical History Surgeries: Yes (GASTRIC SLEEVE) Section, Tubal Ligation (left salpingectomy) Respiratory: No Cardiac: No Neurological: No Reproductive Disorders: Yes (ectopic resulting in left salpingectomy) Female Reproductive Disorders: Menstrual Problems, 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 Sexually Transmitted Disease: No HIV/AIDS: No Genitourinary: No Gastrointestinal: No Musculoskeletal: Yes Chronic Back Pain Endocrine: No 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 oz. 86.458611br; 43.00 BMI Method:Stated General Appearance: WD/WN, no apparent distress HEENT: PERRL/EOMI, normal ENT inspection Neck: normal inspection Cardiovascular: regular rate, rhythm, no edema, no murmur Respiratory: lungs clear, normal breath sounds, no respiratory distress, no accessory muscle use Gastrointestinal: normal bowel sounds, soft, tenderness (across the lower abdomen, left greater than right) Back: normal inspection Extremities: normal inspection, no pedal edema Neurologic/Psychiatric: conical mixer II-XII nml as tested, no motor/sensory deficits, alert, oriented x 3, other (mildly anxious) Skin: normal color, warm/dry Progress/Results/Core Measures Suspected Sepsis Recent Fever Within 48 Hours: No Infection Criteria Present: None New/Unexplained Altered Menta: No Sepsis Screen: No Definite Risk SIRS Temperature: Pulse: 92 Respiratory Rate: 20 Laboratory Tests 09/21/19 04:20: White Blood Count 11.5H Blood Pressure 129 /79 Mean: 96 Laboratory Tests 09/21/19 04:20: Platelet Count 267 Results/Orders Lab Results Laboratory Tests Test 09/21/19 04:17 09/21/19 04:20 Range/Units Urine Color YELLOW Urine Clarity CLEAR Urine pH 6.0 5-9 Urine Specific [place] >=1.030 1.016-1.022 Urine Protein NEGATIVE NEGATIVE Urine Glucose (UA) NEGATIVE NEGATIVE Urine Ketones NEGATIVE NEGATIVE Urine Nitrite NEGATIVE NEGATIVE Urine Bilirubin NEGATIVE NEGATIVE Urine Urobilinogen 0.2 < = 1.0 MG/DL Urine Leukocyte Esterase NEGATIVE NEGATIVE Urine RBC (Auto) TRACE-I NEGATIVE Urine RBC 0-2 /HPF Urine WBC NONE /HPF Urine Squamous Epithelial Cells 5-10 /HPF Urine Crystals NONE /LPF Urine Bacteria TRACE /HPF Urine Casts NONE /LPF Urine Mucus NEGATIVE /LPF Urine Culture Indicated NO White Blood Count 11.5 H 4.3-11.0 10^3/uL Red Blood Count 4.15 L 4.35-5.85 10^6/uL Hemoglobin 11.8 11.5-16.0 G/DL Hematocrit 35 35-52 % Mean Corpuscular Volume 84 80-99 FL Mean Corpuscular Hemoglobin 28 25-34 PG Mean Corpuscular Hemoglobin Concent 34 32-36 G/DL Red Cell Distribution Width 16.2 H 10.0-14.5 % Platelet Count 267 130-400 10^3/uL Mean Platelet Volume 9.2 7.4-10.4 FL Neutrophils (%) (Auto) 71 42-75 % Lymphocytes (%) (Auto) 20 12-44 % Monocytes (%) (Auto) 8 0-12 % Eosinophils (%) (Auto) 2 0-10 % Basophils (%) (Auto) 0 0-10 % Neutrophils # (Auto) 8.2 H 1.8-7.8 X 10^3 Lymphocytes # (Auto) 2.3 1.0-4.0 X 10^3 Monocytes # (Auto) 0.9 0.0-1.0 X 10^3 Eosinophils # (Auto) 0.2 0.0-0.3 10^3/uL Basophils # (Auto) 0.0 0.0-0.1 10^3/uL C-Reactive Protein High Sensitivity 1.96 H 0.00-0.50 MG/DL Human Chorionic Gonadotropin, Quant 78022 H <5 MIU/ML My Orders Orders - ALAN SCOTT MD Cbc With Automated Diff (09/21/19 04:15) Hs C Reactive Protein (09/21/19 04:15) Hcg,Quantitative (09/21/19 04:15) Ua Culture If Indicated (09/21/19 04:15) Vital Signs/I&O Capillary Refill : Less Than 3 Seconds Blood Pressure Mean: 96 Progress Note : Progress Note Labs were unremarkable and hCG was appropriate. I discussed the case with Dr. MÉNDEZ. He recommended if patient was having worsening symptoms that she be transferred to [place] for transvaginal ultrasound. However, on reexamination patient was resting comfortably and stated her discomfort was back to baseline. We talked about possible causes of her pain which might include adhesive disease from endometriosis. Patient elects to return home and follow-up with Dr. Au as an outpatient. Departure Impression Primary Impression: Pelvic pain affecting Qualified Codes: O26.891 - Other specified related conditions, first trimester; R10.2 - Pelvic and perineal pain Disposition: 01 HOME, SELF-CARE Condition: Improved Departure-Patient Inst. Decision time for Depature: 05:49 Referrals: NO,LOCAL PHYSICIAN (PCP) Primary Care Physician NAIN AU DO (Family) Primary Care Physician Patient Instructions: Stomach Pain in Early Add. Discharge Instructions: Feel free to take Tylenol (acetaminophen) up to 1000 mg every 6 hours as needed for pain. Return to care if you have significant worsening of symptoms or if you develop new symptoms such as fever. Follow-up with Dr. Au on Monday. All discharge instructions reviewed with patient and/or family. Voiced understanding. Copy Copies To 1: NAIN AU JOSHUA T MD September 21, 2019 05:06
[2019-09-21 06:05] VITALS: BP 129/79
== END 2019-09-21 06:00 | disposition home or self-care (01) ==
LOC: EDUNIT# 03:54 → ER 03:57
DX: O26.891 Other specified pregnancy related conditions, first trimester (principal); R10.2 Pelvic and perineal pain; Z3A.01 Less than 8 weeks gestation of pregnancy; Z88.2 Allergy status to sulfonamides; Z87.891 Personal history of nicotine dependence
CPT/HCPCS: 36415; 81000; 84702; 85025; 86141

== ENCOUNTER → 2019-09-25 | Outpatient (CLI) | payer MEDICAID ==
[~2019-09-25] MED LIST changes: +OXYC5TAB96 PO
--- NOTE | 2019-09-25 12:17 | Diagnostic Imaging Report ---
INDICATION: Positive test and right pelvic pain. This study is performed to evaluate for ectopic . FINDINGS: The uterus measures 8.3 x 4.9 x 6.6 cm. The endometrium is thickened up to approximately 19 mm. No definite intrauterine is visualized on today's study. There is a gestational sac identified in the right adnexa. There appear to be two yolk sacs and two poles within the gestational sac. One pole does demonstrate a heart rate of 149 BPM. This is adjacent to the right ovary. The findings are consistent with a twin right adnexal . No free fluid is identified. The left adnexa is unremarkable. IMPRESSION: Findings are consistent with a right adnexal ectopic . There is a single gestational sac adjacent to the right ovary which appears to contain two yolk sacs and two poles, consistent with a twin . One pole does demonstrate heart motion. No definite rupture or evidence of free fluid or hemoperitoneum is seen at this time. These results were discussed with Dr. Solares prior to this dictation. Dictated by: Dictated on workstation # [id number]
== END ==
LOC: RAD 10:35
PROVIDERS: ATTEND Obstetrics & Gynecology
DX: E34.9 Endocrine disorder, unspecified (principal); Z87.59 Personal history of other complications of pregnancy, childbirth and the puerperium
CPT/HCPCS: 76801; 76817

== ENCOUNTER 2019-09-27 21:06 | Emergency (ER) | payer MEDICAID ==
[~2019-09-27] VITALS: Ht 152.4 cm; Wt 109.8 kg
[2019-09-27 21:16] VITALS: BP 139/77
--- NOTE | 2019-09-27 21:39 | ED Abdominal Pain ---
General Chief Complaint: DIRECT SELLING COUNSELOR Stated Complaint: ABD PAIN Nursing Triage Note: Patient states that she had her right fallopian tube removed yesterday due to an eptopic . Patient states she twisted getting out of bed today and she felt a very sharp pain. After the pain, she started having light bruising on her medial abdomen under her umbilicus. Patient also states that she started having some vaginal bleeding. Patient denies having any dizziness or faintness. Sepsis Screen: No Definite Risk Source of Information: Patient History of Present Illness Date Seen by Provider: September 27, 2019 Time Seen by Provider: 21:00 Initial Comments She has a 29-year-old female presents status post fallopian tube removal yesterday due to an ectopic per Dr. Anthony at [place]. Patient states she twists that earlier today and felt sharp pain. She started having light bruising on her lower abdominal wall and some vaginal bleeding that has improved. She denies dizziness, chest pain shortness breath palpitations-new symptoms. No other acute symptoms or complaints. Timing/Duration: 4-6 Hours Severity/Quality: Moderate Location: Suprapubic Radiation: No Radiation Activities at Onset: Rest Associated Symptoms: Denies Symptoms Allergies and Home Medications Allergies Coded Allergies: Sulfa (Sulfonamide Antibiotics) (Verified Allergy, Mild, HIVES, 06/20/19) Home Medications Acetaminophen 500 Mg Tablet, 1,000 MG PO Q8H PRN for PAIN-MILD (1-4) Prescribed by: NAIN AU on 09/26/19 0853 Ibuprofen 600 Mg Tablet, 600 MG PO Q6H Prescribed by: NAIN AU on 09/26/19 0853 Oxycodone HCl 5 Mg Tablet, 5 MG PO Q4H PRN for PAIN-SEVERE (8-10) Prescribed by: NAIN AU on 09/26/19 0853 Patient Home Medication List Home Medication List Reviewed: Yes Review of Systems Review of Systems Constitutional: no symptoms reported EENTM: No Symptoms Reported Respiratory: No Symptoms Reported Cardiovascular: No Symptoms Reported Gastrointestinal: See HPI Genitourinary: No Symptoms Reported Musculoskeletal: no symptoms reported Skin: see HPI Psychiatric/Neurological: No Symptoms Reported, See HPI Endocrine: No Symptoms Reported, See HPI Hematologic/Lymphatic: No Symptoms Reported Past Rqddgef-Proyma-Bwqfuy Hx Past Med/Social Hx: Reviewed Nursing Past Med/Soc Hx Patient Social History Alcohol Use: Denies Use Recreational Drug Use: No Drug of Choice: THC Smoking Status: Never a Smoker Type Used: Cigarettes Former Smoker, Quit: Jul 06, 2017 2nd Hand Smoke Exposure: No Recent Foreign Travel: No Contact w/Someone Who Travel: No Recent Infectious Disease Expo: No Recent Hopitalizations: No Physical Abuse: No Sexual Abuse: No Mistreated: No Fear: No Immunizations Up To Date Tetanus Booster (TDap): Less than 5yrs PED Vaccines UTD: Yes Seasonal Allergies Seasonal Allergies: Yes Past Medical History Surgeries: Yes (GASTRIC SLEEVE) Section, Tubal Ligation Respiratory: No Currently Using CPAP: No Currently Using BIPAP: No Cardiac: No Neurological: No Reproductive Disorders: Yes (ectopic resulting in left salpingectomy) Female Reproductive Disorders: Menstrual Problems, 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 Sexually Transmitted Disease: No HIV/AIDS: No Genitourinary: No Gastrointestinal: No Musculoskeletal: Yes Chronic Back Pain Endocrine: No 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 oz. 86.934797ok; 47.00 BMI Method:Stated General Appearance: WD/WN, no apparent distress HEENT: PERRL/EOMI, normal ENT inspection, pharynx normal Neck: non-tender, full range of motion, normal inspection Respiratory: lungs clear, normal breath sounds Cardiovascular: regular rate, rhythm Gastrointestinal: soft, other (incisions, clean and dry and intact, no drainage. Light bruising noted over suprapubic region.) Extremities: normal range of motion, non-tender, normal inspection Back: normal inspection Focused Exam Sepsis Stage: Ruled Out Progress/Results/Core Measures Results/Orders Vital Signs/I&O 09/27/19 21:16 Temp 37.4 Pulse 112 Resp 18 B/P (MAP) 139/77 (97) Pulse Ox 95 O2 Delivery Room Air Blood Pressure Mean: 97 Departure Communication (Admissions) Patient was subcutaneous bleeding likely related due to torn internal suture. BP stable. Dizziness lightheadedness. Ultrasound is not available at this facility to evaluate for pelvic free fluid. Patient declines transfer to [place] and wishes to follow up with DIRECT SELLING COUNSELOR in the morning. Recommend watchful waiting and continued postsurgical care. Patient's instructed to call 911 [facility] if she develops worsening symptoms Impression Primary Impression: Visit for wound check Disposition: HOME, SELF-CARE Condition: Stable Departure-Patient Inst. Decision time for Depature: 21:30 Add. Discharge Instructions: Please go home and rest. Continue home discharge instructions provided to by your DIRECT SELLING COUNSELOR. If you develop lightheadedness with worsening vaginal bleeding, call 911 for transportation to closest facility with DIRECT SELLING COUNSELOR on-call. All discharge instructions reviewed with patient and/or family. Voiced understanding. SHARIF CELIS DO September 27, 2019 21:39
== END 2019-09-27 21:31 | disposition home or self-care (01) ==
LOC: EDUNIT# 21:06 → ER FS 21:07
DX: S30.1XXA Contusion of abdominal wall, initial encounter (principal); Z88.2 Allergy status to sulfonamides; Z87.891 Personal history of nicotine dependence; Z98.890 Other specified postprocedural states; X50.1XXA Overexertion from prolonged static or awkward postures, initial encounter
CPT/HCPCS: 99282

== ENCOUNTER 2019-09-30 15:59 | Emergency (ER) | payer MEDICAID ==
[~2019-09-30] VITALS: Ht 154.9 cm; Wt 105.7 kg
--- OUTSIDE RECORDS SUMMARY | 2019-09-30 16:05 | XMS REPORT | Clinical Summary ---
Author Author [facility] Organization [facility] Address Unknown Phone Unavailable Care Team Providers Care Horse Rancher Name Role Phone Yuli Monge MD Unavailable Delta Rabago MD Unavailable Source Comments Some departments are not documenting in the electronic medical record. If you d o not see the information that you expected, contact Release of Information in [facility] [employer] Information Management department at [phone] for further assistan ce in locating additional records.[facility] Allergies Comments Active Allergy Reactions Severity [...] Comments Vital Sign 128/81 06/24/2014 2:49 PM VBA PROGRAMMER Blood Pressure 85 06/24/2014 2:49 PM VBA PROGRAMMER Pulse - - Temperature - - Respiratory Rate - - Oxygen Saturation - - Inhaled Oxygen Concentration 85.7 kg (189 lb) 06/24/2014 2:49 PM VBA PROGRAMMER Weight 154.9 cm (5' 1") 06/24/2014 2:49 PM VBA PROGRAMMER Height 35.71 06/24/2014 2:49 PM VBA PROGRAMMER Body Mass Index Plan of Treatment Health Maintenance Due Date Last Done Comments HIV SCREENING 2005 DTAP/TDAP VACCINES (1 - 2008 Tdap) HEPATITIS C SCREENING 2008 PHYSICAL (COMPREHENSIVE) 2008 EXAM CERVICAL CANCER SCREENING 2011 INFLUENZA VACCINE 02/06/2020 Results Not on filefrom Last 3 Months Advance Directives Patient Pre Sales Architect Explanation Type Date Recorded Advance Directive/DPOA
--- OUTSIDE RECORDS SUMMARY | 2019-09-30 16:06 | XMS REPORT ---
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 [facility] Ntractive Address [address] [address] Care Team Providers Care Collision Repair Technician Name Role Phone SRIDEVI POLO Unavailable Unavailable [...] Doctor Unavailable Unavailable Migration, Doctor Unavailable Unavailable SONIA MARTINEZ, ALAN Richardson Unavailable Unavailable SHARIF CELIS DO Unavailable Unavailable Unavailable Unavailable Unavailable Unavailable Unavailable [...] Twice A Day as needed for Pain-Severe 14 July 11, 2017 8:35pm June 20, 2019 Problems Active Problems Problem Normalized Date Last Normalized Normalized Provider Talia schuster Classification Problem(s) Recorded Problem Problem Sta tus Duration Allergic Allergy status Episodic Active EFRA NORTON VC Via [facility] sulfonamides Hospital - status [place] () Anxiety Anxiety Chronic Active EFRA NORTON VC Via disorders (17 disorder, [facility] unspecified Hospital - Translations: [place] [ Anxiety, (89769) Anxiety, - Anxiety F41.9] Attention-defi Attention-defi Chronic Active EFRA NORTON VC Via cit conduct cit [facility] and disruptive hyperactivity Hospital - behavior disorder, [place] disorders (9 unspecified (65406) sources.) type Other Bariatric Episodic Active JIM WEST VC Via gastrointestin surgery status , [facility] al disorders Hospital - (4 sources.) [place] (39567) Mood disorders Bipolar Chronic Active EFRA NORTON VC Via (9 sources.) disorder, AWS 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 Alejandra unspecified Hospital - [place] (84936) Other Body mass Chronic Active NAIN AU VC Via nutritional; index (BMI) [facility] endocrine; and 37.0-37.9, Hospital - metabolic adult [place] disorders (3 (19600) sources.) Menstrual Break-through Chronic Active NILS [place] [facility] munity disorders (8 bleeding [facility] sources.) Translations: of [facility] [ Breakthrough [place] ([address]602) bleeding on depo provera, - Breakthrough bleeding on depo provera N92.1] Inflammatory Chronic Chronic Active DIEGO MONTAGUE Vi a diseases of salpingitis DO [facility] female pelvic Hospital - organs (3 [place] sources.) (84040) External cause Contact with Episodic Active JIM [facility] Via codes: knife, initial , [facility] [place] (4 encounter Hospital - sources.) [place] (09638) Ovarian cyst Corpus luteum Episodic Active NAIN AU V CH Via (3 sources.) cyst of left [facility] ovary [facility] (18340) Other Encounter for 09-11-2019 - Episodic Active NAIN Calderon VC Via and supervision of [facility] delivery normal Hospital - including , [place] normal (3 unspecified, (01186) sources.) unspecified trimester Other Endocrine 09-26-2019 - Episodic Active DIEGO MONTAGUE Via endocrine disorder, DO Alejandra disorders (1 unspecified Hospital - source.) [place] (52003) 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 Chronic Active DIEGO MONTAGUE Via (3 sources.) of pelvic DO Alejandra peritoneum [facility] (73590) 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 MONTAGUE Via infertility (3 infertility of DO Alejandra sources.) tubal origin [facility] (52789) Unclassified H/O: no information Active LOCAL NO Ascen annie Via (2 sources.) sterilization [facility] - female [facility] (69929) Open wounds of Laceration Episodic Active IJM WEST V CH Via extremities without , DO Alejandra (10 sources.) foreign body Hospital - of left index [place] finger without (00082) damage to nail, initial encounter Translations: [ Laceration of finger] Skin and Local Episodic Active NILS Valenciait y subcutaneous infection of [address] [place] [address] tissue the skin and of [facility] infections (4 subcutaneous [place] (08885) sources.) tissue, unspecified Translations: [ - Skin infection L08.9] Spondylosis; Low back pain Episodic Active EFRA NORTON V CH Via intervertebral Translations: AZEEM Roberts disc [ Low back Hospital - disorders; pain, Back [place] other back pain] (10732) problems (14 sources.) Other Obesity, Chronic Active DIEGO MONTAGUE Via nutritional; unspecified DO Alejandra endocrine; and Hospital - metabolic [place] disorders (3 (39062) sources.) Other Other long Episodic Active NILS Valencia ity aftercare (8 term (current) [address] [place] [address] sources.) drug therapy of [facility] Translations: [place] ([address]122) [ - Medication management Z79.899] Screening and Personal Episodic Active DIEGO LAMB V ia history of history of AWS DEVELOPERAmanda Roberst mental health nicotine Hospital - and substance dependence [place] abuse codes (81666) (12 sources.) Cancer; other Personal Episodic Active JIM CORTEZ Via and history of , DO Alejandra unspecified other benign Hospital - primary (4 neoplasm [place] sources.) (37371) Residual Personal 09-26-2019 - Episodic Active EFRA NORTON VC Via codes; history of AWS DEVELOPER Alejandra unclassified other Hospital - (9 sources.) complications [place] of , (85146) childbirth and the puerperium Other Personal Episodic Active EFRA NORTON VC Via connective history of AWS DEVELOPER Alejandra tissue disease other diseases Hospital - (5 sources.) of the [place] [facility]75772[facility] l system and connective tissue Other female Recurrent Episodic Active NAIN AU VC V ia genital loss DO Alejandra disorders (3 Hospital - sources.) [place] (32158) Contraceptive Tubal ligation Episodic Active DIEGO LAMB Via and status AWS DEVELOPER Alejandra procreative Translations: Hospital - management (14 [ - Encounter [place] sources.) for (17025) Depo-Provera contraception Z30.42] Past or Other Problems Problem Normalized Date Last Normalized Normalized Provider Fa cility Classification Problem(s) Recorded Problem Problem Sta tus Duration Other lower Snoring Episodic Completed HALLIE FARFAN Not Amber arita MD (47494) disease (1 source.) Procedures Procedure Normalized Procedure Procedure Result Performer Facility Date 09-09-2013 Antibody hiv-1 no information no name [facility] (13922) 09-09-2013 Collection venous no information no name [facility] blood venipuncture [facility] (02558) 09-09-2013 Cul bact xcpt urine no information no name [facility] blood/stool aerobic [facility] (63080) 09-09-2013 Iadna chlamydia no information no name [facility] trachomatis amplified [facility] (99199) 09-09-2013 Iadna trichomonas no information no name [facility] vaginalis direct probe [facility] (51271) 09-09-2013 Syphilis test no information no name [facility] non-treponemal [facility] antibody qual [place] (80006) Immunizations The data below is from unstructured sources Immunization Event Date Not Given Reason Dose Number Instrument Adjuster Lot Number Vaccine Information Statement (VIS) Deta il No Known Immunizations Results Test Name Value Interpretation Reference Range Date Time Fa cility (Normalized) (Normalized) (Medline Reference) not yet categorized on 2019-09-26 no information NAME: (no code) PENDING LOCATIO N MARCIAL,SUREKHA L S (71514) ~MED REC#: [id number] ~ ~PHYSICIAN: TERRA KRAUSE CRNA ~General ~Patient Condition ~Mental Status/LOC: Same as Preop ~Cardiovascular: Satisfactory ~Nausea/Vomiting : Absent ~Respiratory: Satisfactory ~Pain: Controlled ~Complications: Absent ~ ~Post Op Complications ~Complications ~None ~ ~Follow Up Care/Instruction s ~Patient Instructions ~None needed. ~ ~Anesthesia/Bhavna ent Condition ~Patient Condition ~Patient is doing well, no complaints, stable vital signs, no apparent adverse anesthesia problems. ~ ~No complications reported per nursing. ~D/C home per [facility] Criteria: Yes ~ ~ ~ ~TERRA KRAUSE CRNA September 26, 2019 14:27 ~ ~ ~<Created by TERRA KRAUSE CRNA> ~<Electronically signed by TERRA KRAUSE CRNA> 09/26/19 1427 ~ ~ laboratory on 2019-09-26 Basophils (Bld) 0.0 10*3/uL (NEG) 0 - 0.3 10*3/uL 09-26-2019 PENDING LOCATION [#/Vol] 01:50-0400 [facility] (45792) Basophils (Bld) 0.0 10*3/uL (NEG) 0 - 0.3 10*3/uL 09-26-2019 PENDING LOCATION [#/Vol] 06:02-0400 [facility] (69381) Basophils/100 0 % (NEG) 0.5 - 1 % 09-26-2019 PENDING LOCATION WBC (Bld) 01:50-0400 [facility] (78402) Basophils/100 0 % (NEG) 0.5 - 1 % 09-26-2019 PENDING LOCATION WBC (Bld) 06:02-0400 [facility] (62743) Eosinophils 0.0 10*3/uL (NEG) 0.05 - 0.5 09-26-2019 PENDING LOCATION (Bld) [#/Vol] 10*3/uL 01:50-0400 [facility] (97934) Eosinophils 0.0 10*3/uL (NEG) 0.05 - 0.5 09-26-2019 PENDING LOCATION (Bld) [#/Vol] 10*3/uL 06:02-0400 [facility] (59079) Eosinophils/100 0 % (NEG) 1 - 4 % 09-26-2019 [facility] LOCATION WBC (Bld) 01:50-0400 [facility] (56044) Eosinophils/100 0 % (NEG) 1 - 4 % 09-26-2019 [facility] LOCATION WBC (Bld) 06:02-0400 [facility] (36216) Erythrocyte 16.1 % (H) 11.6 - 14.6 % 09-26-2019 [facility] LOCATION distribution 01:50-0400 [facility] (95427) width (RBC) [Ratio] Erythrocyte 16.1 % (H) 11.6 - 14.6 % 09-26-2019 [facility] LOCATION distribution 06:02-0400 [facility] (28143) width (RBC) [Ratio] Hematocrit (Bld) 26 % (L) 36.1 - 50.3 % 09-26-2019 P ENDING LOCATION [Volume 01:50-0400 [facility] (69745) fraction] Hematocrit (Bld) 26 % (L) 36.1 - 50.3 % 09-26-2019 P ENDING LOCATION [Volume 06:02-0400 [facility] (93342) fraction] Hemoglobin (Bld) 8.4 g/dL (L) 12.1 - 17.2 g/dL 09-26-2019 PENDING LOCATION [Mass/Vol] 01:50-0400 [facility] (23833) Hemoglobin (Bld) 8.6 g/dL (L) 12.1 - 17.2 g/dL 09-26-2019 PENDING LOCATION [Mass/Vol] 06:02-0400 [facility] (99013) Lymphocytes 1.2 10*3/uL (NEG) 0.9 - 2.9 09-26-2019 PENDING LOCATION (Bld) [#/Vol] 10*3/uL 01:50-0400 [facility] (53421) Lymphocytes 1.9 10*3/uL (NEG) 0.9 - 2.9 09-26-2019 PENDING LOCATION (Bld) [#/Vol] 10*3/uL 06:02-0400 [facility] (34634) Lymphocytes/100 10 % (L) 20 - 40 % 09-26-2019 [facility] LOCATION WBC (Bld) 01:50-0400 [facility] (85459) Lymphocytes/100 11 % (L) 20 - 40 % 05-21-2020 PENDIN G LOCATION WBC (Bld) 06:02-0400 [facility] (98096) MCH (RBC) 28 pg (NEG) 27 - 31 pg 09-26-2019 PENDING LOC ATION [Entitic mass] 01:50-0400 [facility] (28623) MCH (RBC) 28 pg (NEG) 27 - 31 pg 09-26-2019 PENDING LOC ATION [Entitic mass] 06:02-0400 [facility] (22565) MCHC (RBC) 32 g/dL (NEG) 32 - 36 g/dL 09-26-2019 PENDING LOCATION [Mass/Vol] 01:50-0400 [facility] (53109) MCHC (RBC) 33 g/dL (NEG) 32 - 36 g/dL 09-26-2019 PENDING LOCATION [Mass/Vol] 06:02-0400 [facility] (09785) MCV (RBC) 86 (NEG) 09-26-2019 PENDING LOCATI ON [Entitic vol] 01:50-0400 [facility] (21832) MCV (RBC) 86 (NEG) 09-26-2019 PENDING LOCATI ON [Entitic vol] 06:02-0400 [facility] (64268) Monocytes (Bld) 0.8 10*3/uL (NEG) 0.3 - 0.9 09-26-2019 PEND ING LOCATION [#/Vol] 10*3/uL 01:50-0400 [facility] (90800) Monocytes (Bld) 1.3 10*3/uL (H) 0.3 - 0.9 09-26-2019 PEND ING LOCATION [#/Vol] 10*3/uL 06:02-0400 [facility] (07770) Monocytes/100 6 % (NEG) 2 - 8 % 09-26-2019 PENDING LOCATION WBC (Bld) 01:50-0400 [facility] (59045) Monocytes/100 7 % (NEG) 2 - 8 % 09-26-2019 PENDING LOCATION WBC (Bld) 06:02-0400 [facility] (32013) Neutrophils 11.1 10*3/uL (H) 1.7 - 7 10*3/uL 2020 P ENDING LOCATION (Bld) [#/Vol] 01:50-0400 [facility] (98286) Neutrophils 13.9 10*3/uL (H) 1.7 - 7 10*3/uL 09-26-2019 P ENDING LOCATION (Bld) [#/Vol] 06:02-0400 [facility] (41549) Neutrophils/100 85 % (H) 40 - 60 % 09-26-2019 PENDIN G LOCATION WBC (Bld) 01:50-0400 [facility] (74863) Neutrophils/100 82 % (H) 40 - 60 % 09-26-2019 PENDIN G LOCATION WBC (Bld) 06:02-0400 [facility] (69987) Platelet mean 9.5 (NEG) 09-26-2019 PENDING LOCA TION volume (Bld) 01:50-0400 [facility] (98948) [Entitic vol] Platelet mean 9.4 (NEG) 09-26-2019 PENDING LOCA TION volume (Bld) 06:02-0400 [facility] (64713) [Entitic vol] Platelets (Bld) 271 10*3/uL (NEG) 150 - 450 09-26-2019 PEND ING LOCATION [#/Vol] 10*3/uL 01:50-0400 [facility] (51167) Platelets (Bld) 278 10*3/uL (NEG) 150 - 450 09-26-2019 PEND ING LOCATION [#/Vol] 10*3/uL 06:02-0400 [facility] (88514) RBC (Bld) 3.03 10*6/uL (L) 4.2 - 6.1 09-26-2019 PENDING L OCATION [#/Vol] 10*6/uL 01:50-0400 [facility] (85223) RBC (Bld) 3.04 10*6/uL (L) 4.2 - 6.1 09-26-2019 PENDING L OCATION [#/Vol] 10*6/uL 06:02-0400 [facility] (87401) WBC (Bld) 13.1 10*3/uL (H) 3.5 - 10.5 09-26-2019 PENDING LOCATION [#/Vol] 10*3/uL 01:50-0400 [facility] ([id number]) WBC (Bld) 17.1 10*3/uL (H) 3.5 - 10.5 09-26-2019 PENDING LOCATION [#/Vol] 10*3/uL 06:02-0400 [facility] (54446) not yet categorized on 2019-09-25 no information SPECIMEN (no code) 09-25-2019 PENDING LOC ATION AVAILABLE 10:55-0400 [facility] (38048) laboratory on 2019-09-25 Erythrocyte 16.3 % (H) 11.6 - 14.6 % 09-25-2019 PENDIN G LOCATION distribution 11:50-0400 [facility] (44917) width (RBC) [Ratio] Hematocrit (Bld) 34 % (L) 36.1 - 50.3 % 09-25-2019 P ENDING LOCATION [Volume 11:50-0400 [facility] (34719) fraction] Hemoglobin (Bld) 11.2 g/dL (L) 12.1 - 17.2 g/dL 09-25-2019 PENDING LOCATION [Mass/Vol] 11:50-0400 [facility] (26718) MCH (RBC) 28 pg (NEG) 27 - 31 pg 09-25-2019 PENDING LOC ATION [Entitic mass] 11:50-0400 [facility] (93012) MCHC (RBC) 33 g/dL (NEG) 32 - 36 g/dL 09-25-2019 PENDING LOCATION [Mass/Vol] 11:50-0400 [facility] (43771) MCV (RBC) 86 (NEG) 09-25-2019 PENDING LOCATI ON [Entitic vol] 11:50-0400 [facility] (77791) MRSA isol Org Negative (no code) 09-25-2019 PENDING LOCA TION specific cx Ql 14:54-0400 [facility] (50256) (Unsp spec) Platelet mean 9.4 (NEG) 09-25-2019 PENDING LOCA TION volume (Bld) 11:50-0400 [facility] (35917) [Entitic vol] Platelets (Bld) 291 10*3/uL (NEG) 150 - 450 09-25-2019 PEND ING LOCATION [#/Vol] 10*3/uL 11:50-0400 [facility] (52653) RBC (Bld) 3.99 10*6/uL (L) 4.2 - 6.1 09-25-2019 PENDING L OCATION [#/Vol] 10*6/uL 11:50-0400 [facility] (07218) WBC (Bld) 16.2 10*3/uL (H) 3.5 - 10.5 09-25-2019 PENDING LOCATION [#/Vol] 10*3/uL 11:50-0400 [facility] (92558) laboratory on 2019-09-21 Bacteria LM Ql TRACE (no code) 09-21-2019 PENDING LOC ATION (Urine sed) 00:17-0400 [facility] (79841) Basophils (Bld) 0.0 10*3/uL (NEG) 0 - 0.3 10*3/uL 09-21-2019 PENDING LOCATION [#/Vol] 00:20-0400 [facility] (57309) Basophils/100 0 % (NEG) 0.5 - 1 % 09-21-2019 PENDING LOCATION WBC (Bld) 00:-0400 [facility] (88982) Bilirubin Ql (U) Negative (no code) 09-21-2019 PENDING L OCATION 00:17-0400 [facility] (12403) Casts LM Ql NONE (no code) 09-21-2019 PENDING LOCATI ON (Urine sed) 00:17-0400 [facility] (37662) Clarity (U) CLEAR (no code) 09-21-2019 PENDING LOCATI ON 00:0400 [facility] (08710) Color (U) YELLOW (no code) 09-21-2019 PENDING LOCATI ON 00:17-0400 [facility] (80064) CRP [Mass/Vol] 1.96 (H) 09-21-2019 PENDING LOC ATION 00:20-0400 [facility] (57637) Crystals LM Ql NONE (no code) 09-21-2019 PENDING LOC ATION (Urine sed) 00:17-0400 [facility] (07484) Eosinophils 0.2 10*3/uL (NEG) 0.05 - 0.5 09-21-2019 PENDING LOCATION (Bld) [#/Vol] 10*3/uL 00:20-0400 [facility] (52881) Eosinophils/100 2 % (NEG) 1 - 4 % 09-21-2019 PENDIN G LOCATION WBC (Bld) 00:20-0400 [facility] (00287) Epithelial 5-10 (no code) 09-21-2019 PENDING LOCATI ON cells.squamous 00:17-0400 [facility] (16711) LM Ql (Urine sed) Erythrocyte 16.2 % (H) 11.6 - 14.6 % 09-21-2019 PENDIN LOCATION distribution 00:-040 [facility] (24698) width (RBC) [Ratio] Glucose Auto Negative (no code) 09-21-2019 PENDING LOCAT ION test strip Ql 00:17-0400 [facility] (64938) (U[place] [address] m[IU]/mL (H) 09-21-2019 PENDING LOC ATION 00:20-0400 [facility] (40810) Hematocrit (Bld) 35 % (NEG) 36.1 - 50.3 % 09-21-2019 P ENDING LOCATION [Volume 00:-040 [facility] (93816) fraction] Hemoglobin (Bld) 11.8 g/dL (NEG) 12.1 - 17.2 g/dL 09-21-2019 PENDING LOCATION [Mass/Vol] 00:040 [facility] (82943) Ketones Auto Negative (no code) 09-21-2019 PENDING LOCAT ION test strip Ql 00:17-0400 [facility] (27975) (U) Leukocyte Negative (no code) 09-21-2019 PENDING LOCATI ON esterase Test 00:17-0400 [facility] (17534) strip Ql (U) Lymphocytes 2.3 10*3/uL (NEG) 0.9 - 2.9 09-21-2019 PENDING LOCATION (Bld) [#/Vol] 10*3/uL 00:-0400 [facility] (10114) Lymphocytes/100 20 % (NEG) 20 - 40 % 09-21-2019 PENDIN LOCATION WBC (Bld) 00:20-0400 [facility] (27396) MCH (RBC) 28 pg (NEG) 27 - 31 pg 09-21-2019 PENDING LOC ATION [Entitic mass] 00:20-0400 [facility] (18971) MCHC (RBC) 34 g/dL (NEG) 32 - 36 g/dL 09-21-2019 PENDING LOCATION [Mass/Vol] 00:20-0400 [facility] (50415) MCV (RBC) 84 (NEG) 09-21-2019 PENDING LOCATI ON [Entitic vol] 00:20-0400 [facility] (98641) Monocytes (Bld) 0.9 10*3/uL (NEG) 0.3 - 0.9 09-21-2019 PEND ING LOCATION [#/Vol] 10*3/uL 00:20-0400 [facility] (03757) Monocytes/100 8 % (NEG) 2 - 8 % 09-21-2019 PENDING LOCATION WBC (Bld) 00:20-0400 [facility] (82013) Mucus Ql (Urine Negative (no code) 09-21-2019 PENDING LO CATION sed) 00:17-0400 [facility] (68890) Neutrophils 8.2 10*3/uL (H) 1.7 - 7 10*3/uL 09-21-2019 PE NDING LOCATION (Bld) [#/Vol] 00:20-0400 [facility] (61727) Neutrophils/100 71 % (NEG) 40 - 60 % 09-21-2019 PENDIN G LOCATION WBC (Bld) 00:20-0400 [facility] (41557) Nitrite Ql (U) Negative (no code) 09-21-2019 PENDING LOC ATION 00:17-0400 [facility] (01640) pH (U) 6.0 [pH] (no code) 4.6 - 8 [pH] 09-21-2019 PENDING L OCATION 00:-0400 [facility] (01698) Platelet mean 9.2 (NEG) 09-21-2019 PENDING LOCA TION volume (Bld) 00:20-0400 [facility] (83642) [Entitic vol] Platelets (Bld) 267 10*3/uL (NEG) 150 - 450 09-21-2019 PEND ING LOCATION [#/Vol] 10*3/uL 00:20-0400 [facility] (25378) Protein Ql (U) Negative (no code) 09-21-2019 PENDING LOC ATION 00:17-0400 [facility] (89098) RBC (Bld) 4.15 10*6/uL (L) 4.2 - 6.1 09-21-2019 PENDING L OCATION [#/Vol] 10*6/uL 00:20-0400 [facility] (85066) RBC LM.HPF no information (no code) 09-21-2019 PENDING LOC ATION (Urine sed) 00:17-0400 [facility] (87648) [#/Area] RBC Ql (U) TRACE-I (no code) 09-21-2019 PENDING LOCATI ON 00:170400 [facility] (84893) Specific gravity >= (no code) 09-21-2019 PENDING L OCATION (U) [Rel 00:17-0400 [facility] (52080) density] Urinalysis NO (no code) 09-21-2019 PENDING LOCATI ON complete W 00:17-0400 [facility] (53545) Reflex Culture panel - Urine Urobilinogen (U) 0.2 mg/dL (no code) 09-21-2019 PENDING L OCATION [Mass/Vol] 00:17-0400 [facility] (28414) WBC (Bld) 11.5 10*3/uL (H) 3.5 - 10.5 09-21-2019 PENDING LOCATION [#/Vol] 10*3/uL 00:20-0400 [facility] (71668) WBC LM.HPF NONE (no code) 09-21-2019 PENDING LOCATI ON (Urine sed) 00:0400 [facility] (16350) [#/Area] not yet categorized on 2019-02-27 COMMENT no information (no code) [facility] (54010) laboratory on 2019-02-27 Amphetamines Ql Negative (N) [facility] (U) [facility] (07776) Barbiturates Ql Negative (N) [facility] (U) [facility] (48048) Benzodiazepines Negative (N) [facility] Ql (U) [facility] (35892) Benzoylecgonine Negative (N) [facility] Ql (U) [facility] (72398) Creatinine (U) 212.2 mg/dL (N) [facility] [Mass/Vol] [facility] (03654) Drug screen CONSISTENT (N) [facility] comment (U) [facility] [Interp] [facility] (43382) Drug screen INCONSISTENT (A) [facility] comment (U) [facility] [[facility]] [facility] (27145) Methadone Ql (U) Negative (N) [facility] (98021) Opiates Ql (U) Negative (N) [facility] (81465) Oxidants Ql (U) Negative (N) [facility] (28423) Oxycodone Ql (U) Negative (N) [facility] (32802[facility] pH (U) 7.2 [pH] (N) 4.6 - 8 [pH] [facility] (18822) Phencyclidine Ql Negative (N) [facility] lth (U) [facility] (33375) Tetrahydrocannab 172 (H) [facility] inol (U) [facility] [Mass/Vol] [facility] (16000) Tetrahydrocannab Positive (A) [facility] in[facility] Ql (U) [facility] (22511) Vital Signs Vital Sign Value Interpretation Reference Date Time Care Prov ider Facility (Normalized) (Normalized) Range BMI (Body Mass 43.12 kg/m2 (no code) 15 - 25 kg/m2 12-26-2017 Kan G[facility]IA [facility] Community Index) 11:20-0400 47557 [facility] (25973) Body height 152.4 cm (no code) cm 09-09-2013 NILS Hernandez [facility] 18:53-0400 32242 [facility] (43156) Body height 152.4 cm (no code) cm 05-16-2013 Doctor Com munity 10:16-0500 Migration [facility] (29550) Body 96.9 [degF] (no code) 97.8 - 99.0 12-26-2017 LESLIE [facility] Temperature [degF] 11:20-0400 30435 [facility] (78951) Body 98.1 [degF] (no code) 97.8 - 99.0 09-09-2013 NILS STRINGER [facility] temperature [degF] 18:53-0400 25918 [facility] (55685) Body 98.6 [degF] (no code) 97.8 - 99.0 05-16-2013 Doctor Community temperature [degF] 10:16-0500 [facility] (27367) Body weight 82.19 kg (no code) kg 09-09-2013 NILS Patel [facility] 18:53-0400 97828 [facility] (80187) Body weight 79.33 kg (no code) kg 05-16-2013 Doctor Com munity 10:16-0500 [facility] (89569) Height 152.4 cm (no code) cm 12-26-2017 [facility] 11:20-0400 62204 [facility] (99735) Weight 100.15 kg (no code) kg 12-26-2017 [facility] 11:20-[address] [place] [address] (39804) Interventions No Information Plan of Treatment Normalized Care Care Detail Care Activity Date Care Provider F acility Activity MRSA isol Org no information no information LOCAL NO Ascens ion Via specific cx Ql (Unsp [facility] spec) (93634) Patient Education no information no information LOCAL NO As cension Via [facility] (17008) Patient referral no information no information LOCAL NO Asc ension Via [facility] (76864) Goals Patient Goal Desired Goal no information no information Social History Normalized Code Original Code Date Value Tobacco smoking status Tobacco smoking status 06-20-2019 - Ex- smoker (finding) MNIS MNIS no information no information 06-20-2019 Rarely Uses [...] annie [facility] Sedation Scale (POSS) [facility] (49099) Awake and alert Mental Status Status Assessment Result Care Provider Facility Cognitive function [place] Opioid-induced LOCAL NO Asce nsion Via [facility] Sedation Scale (POSS) [facility] (99503) Awake and alert Encounters Encounter Normalized Encounter Encounter Diagnosis Care Provi mya Organization Date Type 09-21-2018 (imm/inj) Encounter for SKIP [facility]ALS (no phone) Cl [facility] - Immunization/injection surveillance of (no p leonardo) 09-21-2018 injectable - contraceptive 09-21-2018 06-28-2019 Admission to day no information (no phone) Asc ion [facility] - surgery [facility] (no phone) 06-28-2019 11-29-[facility] Morbid (severe) [facility] (no phone) [facility] obesity due to excess (no phone) calories 02-27-2019 [facility] Local infection of the JORDEN DELGADO LSTADT (no [facility] (no skin and subcutaneous phone) phone) tissue, unspecified 09-27-2019 Emergency department no information SHARIF CELIS DO (n o [facility] - patient visit phone) [facility] 09-27-2019 (no phone) 09-20-2019 Emergency department no information ALAN MENENDEZ [facility] - patient visit (no phone) [facility] 09-21-2019 (no phone) 12-10-2018 Emergency department no information no name no organization name - patient visit 12-10-2018 12-10-2018 Emergency department no information JIM Patel DO [facility] [address] - patient visit (no phone) [facility] 12-10-2018 (no phone) 07-11-2017 Emergency department no information no name no organization name - patient visit 07-11-2017 07-11-2017 Emergency department no information EFRA ARNOLD (no [facility] [address] - patient visit phone) [facility] 07-11-2017 (no phone) 07-11-2017 Patient encounter no information no name no or ganization name 09-25-2019 Patient encounter no information NAIN AU DO ( no [facility] - procedure phone) [facility] 09-26-2019 (no phone) 09-25-2019 Patient encounter no information NAIN AU DO ( no [facility] procedure phone) [facility] (no phone) 09-10-2019 Patient encounter no information NAIN AU DO ( no [facility] procedure phone) [facility] (no phone) 06-28-2019 Patient encounter no information NAIN C AU DO ( no [facility] - procedure phone) [facility] 06-28-2019 (no phone) 06-20-2019 Patient encounter no information (no phone) Wilbert valencia [facility] (no phone) 06-20-2019 06-20-2019 Patient encounter no information NAIN AU DO ( no [facility] - procedure phone) [facility] 06-20-2019 (no phone) 02-27-2019 Patient encounter [...] ganization name procedure 03-04-2019 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 JORDEN Richardson (no [facility] (no (current) drug therapy phone) phone) 12-24-2018 Telephone encounter no information [facility] (no phone) [facility] phone[facility] 11-14-2018 Telephone encounter no information JORDEN DAWSON (no [facility] (no phone) phone) 10-15-2018 Telephone encounter no information [facility] (no phone) [facility] - (no phone) 10-15-2018 - 10-15-2018 06-27-2019 no information Encounter for other no name no organization name preprocedural examination Medical Equipment The data below is from unstructured sourcesNo Medical Equipment Information availableNo Medical Equipment Information availableNo Medical Equipment Information available Payers Normalized Payer Value Unknown no information ([id number]) Evaluation note Note Type Note Facility Evaluation No Assessments Information Available A scension note [facility] ([id number]) History general Narrative - Reported Note Type Note Facility History general Narrative - Reported Type Medical Migraines History Medical Ulcers History Medical Anemia History Medical raynauds syndrome History Surgical 01/03/16 History Surgical Gastric Sleeve 12/23/11 History Surgical Internal Bleeding 10/25/13 History Hospitaliz Previous surgeries ation History [facility] ([id number]) Summary Purpose eClinicalWorks Submission Discharge Instructions No hospital discharge instructions. Additional Instructions Patient Instructions Physician Instructions New, Converted or Re-Newed RX: RX on Chart Additional Follow Up: Yes (1-2 weeks) Activity: Activity as Tolerated Driving Instructions: No Driving for 1 Week NO SMOKING: NO SMOKING Nothing Inside Vagina: No Douching, No [place] (for 1 week), No Tampons Discharge Diet: No Restrictions Symptoms to Report to DrKareen: Bleeding Excessive, Pain Increased, Fever Over 101 [...] Bandage (in 3 days or if soiled/wet) Stitches/David/Dermabond: Dermabond Bathing Instructions: Shower Advance Directives Advance Directive Response Recorded Date/Time Advance Directives No 2019 1:31pm Health Care Power of Spreading Machine Operator No June 20, 2019 1:31pm Organ Donor No June 20, 2019 1:31pm Resuscitation Status Full Code June 20, 2019 1:31pm Advance Directive Response Recorded Date/Time Advance Directives No 2019 10:30am Health Care Power of Spreading Machine Operator No June 28, 2019 10:30am Organ Donor Yes June 28, 2019 10:30am Resuscitation Status Full Code June 28, 2019 10:30am Additional Source Comments This clinical document has been generated using Over[employer] software that has been certified by the Office of the National Coordinator for Health Information Technology (ONC 15.99.04.3023.Diam.31.00.0.422095) and the National Committee for U.S. Senator (NCQA, as an eMeasure certified technology). FOR [...] BASED ON T HE PRIMARY CLINICAL RECORDS. [employer]. provides no warranty or guara ntee of the accuracy or completeness of information in this document.The followi ng information is based on time limited clinical information UNRECOGNIZED CONTENT PROVIDED BELOW FOR UNRECOGNIZED SECTION REASON FOR VISIT congestion and cough x2 days [id number]-Pen UNRECOGNIZED CONTENT PROVIDED BELOW FOR UNRECOGNIZED SECTION [...]
--- OUTSIDE RECORDS SUMMARY | 2019-09-30 16:06 | XMS REPORT | Clinical Summary ---
Author Author [facility] Organization [facility] Address Unknown Phone Unavailable Care Team Providers Care Industrial Health And Safety Professor Name Role Phone Jeniffer Tamayo PCP Allergies [...] MISC [phone] [id number] COMMERCIAL resent NONCONTRAC NOAM [address] Personal/F Self 1990 [address] (Home) [place], [place] [address]
--- OUTSIDE RECORDS SUMMARY | 2019-09-30 16:06 | XMS REPORT | Continuity of Care Document ---
[...] Code [place] [address] ROUT INE VENIPUNCTURE 09/09/2013 34358 TRIC [place] (IN-HOUSE) 09/09/2013 39570 SYPH [facility] 09/10/2013 48647 HIV (STATE LAB) 09/10/2013 88903 GC/C HLAM PROBE ([facility]) 09/10/2013 38430 CULT URE UROGENITAL 09/12/2013 Results Test Result [...] Status Pt. Type Provider Facility Loc./Unit Complaint [id number] 09/09/2013 16:53:00 09/09/2013 23:59: 59 [facility] Outpatient NILS LILLY APRN [id number] 05/16/2013 10:16:00 05/16/2013 23:59: 59 [place] [id number] 11/20/2008 10:48:00 11/20/2008 23:59:5 9 [facility] Outpatient JOANN KIM [id number] 02/27/2019 17:20:00 02/27/2019 23:59:5 9 [facility] Outpatient SHERICE THOMPSON LAC [id number] 02/27/2019 17:20:00 Document Registration
--- OUTSIDE RECORDS SUMMARY | 2019-09-30 16:06 | XMS REPORT | Encounter Summary ---
Author Author [facility] Organization [facility] Address Unknown Phone Unavailable Care Team Providers Care Vp Medical Name Role Phone Jeniffer Tamayo PCP Reason for Visit * Reason Comments Headache HEADACHE DX WITH MASS IN [facility] OPTHOMOLOGIST LAKISHA JUST GIVES ME STEROIDS Encounter Details Care Team Description Date Type Department Una Fitzgerald Jr., MD [address] [place], [place] [id number] Headache, unspecified headache type (Areli reny Dx); Blurred vision, right eye 11/27/2014 Emergency [facility] [address] [place], [place] [id number] Social History Date Tobacco Use Types Packs/Day [...] face You have difficulty talking or seeing [id number] [employer]. [address] [place] [address] 7. All rights reserved. This information is not intended as a substitute for pro fessional medical care. Always follow your healthcare professional's instruction s. Blurred Vision Blurred vision is the loss of sharpness of vision and the inability to see small details. Any changes in your vision whether sudden or gradual should be checked out by an program management specialist. There are many causes for vision [...] you see better. Follow Up with an program management specialist or as advised by our staff. [...] also prescribe glasses and contact lenses. An administrator of home health can provide a basic screening eye exam for much less cost than an physical medicine physician. The administrator of home health can tell you if your condition needs the servi fabricio of an physical medicine physician. Get Prompt Medical Attention if any of the following occur: Sudden change in your vision Eye pain, redness, or discharge from your eyelid Blurriness Dark spots in your field of vision Halos around lights Floaters (dots or strings moving across your field of vision) Sudden flash of light inside your eye Dimness of vision Partial or complete loss of vision [id number] [employer]. [address] [place] [address], [place] [address] 7. All rights reserved. This information is [...] specialists including oph thalmology and neurology at [facility] regarding an MRI scan that she had [...] [place] - 11/27/2014 2:32 PM CDT Bed: [facility] Expected date: Expected time: Means [...] TROY Orbits are symmetric and anatomic in ap pearance. No mass per CT with contrast. ATTESTATION STATEMENT: The Staff Radiologist has personally re viewed the images and dictated, reviewed, or edited the final report. READING SITE: [facility] Narrative Performed At Patient: OPAL LEBLANC Phone#: [facility] Rec#: [id number] Sex#: F # [id number] Tejal#: [id number] Location: [facility]- Procedure Requested: [id number] CT ORBIT IAC POSTERIOR FOSSA SELLA W [...] CDT Patient: OPAL LEBLANC Phone#: Med Rec#: [id number] Sex#: F # [id number] Tejal#: [id number] Location: [facility] Procedure Requested: [id number] CT ORBIT IAC POSTERIOR FOSSA SELLA W [...] or edited the final report. READING SITE: [facility] Organization Address City/State/Zipcovt Ph one Number TROY * CBC and Diff (manual diff if necessary) (11/27/2014 4:58 PM CDT) WBC 9.30 4.00 - 11.00 TH/uL [facility] RBC 4.06 4.00 - 5.00 MIL/uL [facility] Hemoglobin 11.5 (L) 12.0 - 15.0 g/dL [facility] Hematocrit 33 (L) 36 - 45 % [facility] MCV 81 80 - 99 fL [facility] MCH 28 27 - 34 pg [facility] MCHC 35 32 - 36 % [facility] RDW 15.2 (H) 9.0 - 14.5 % [facility] Platelet Count 215 140 - 400 TH/uL [facility] MPV 10.0 9.4 - 12.3 fL [facility] Nucleated RBCs 0 0 - 0 /100 [facility] % Neutrophils 51 45 - 78 % [facility] %Lymphocytes 40 15 - 47 % [facility] %Monocytes 8 0 - 12 % [facility] %Eosinophils 1 0 - 7 % [facility] %Basophils 0 0 - 2 % [facility] % Imm Grans 0 0 - 1 % [facility] # Granulocytes 4.72 1.70 - 6.80 TH/uL [facility] # Lymphocytes 3.70 (H) 1.00 - 3.30 TH/uL [facility] # Monocytes 0.73 0.20 - 0.90 TH/uL [facility] # Eosinophils 0.12 0.00 - 0.40 TH/uL [facility] # Basophils 0.03 0.00 - 0.10 TH/uL [facility] Specimen Blood Performing Organization Address City/State/Zipcode Ph one Number [address] [address] LABORATORIES * Comprehensive Metabolic Panel (11/27/2014 4:58 PM CDT) Sodium 135 133 - 147 MEQ/L [facility] Potassium 3.9 3.5 - 5.3 MEQ/L [facility] Chloride 103 96 - 112 MEQ/L [facility] Carbon Dioxide 26 20 - 32 MEQ/L [facility] Anion Gap 6 5 - 17 [facility] Calcium 9.3 8.4 - 10.5 mg/dL [facility] Glucose 88 70 - 100 mg/dL [facility] Protein Total 7.2 6.0 - 8.2 g/dL [facility] Serum [facility] Albumin 4.1 3.5 - 5.0 g/dL [facility] Alkaline 44 42 - 140 IU/L [facility] Phosphatase [facility] Alanine 26 13 - 69 IU/L [facility] Aminotransferas [facility] e LABORATORIES Aspartate 18 15 - 46 IU/L [facility] Aminotransferas [facility] LABORATORIES Bilirubin Total 0.3 0.2 - 1.3 mg/dL [facility] Blood Urea 13 7 - 26 mg/dL [facility] LABORATORIES Creatinine 0.7 0.4 - 1.1 mg/dL [facility] eGFR Female AA 123 60 - 200 [facility] Comment: REGIONAL Chronic Kidney Disease less LABORATORIES than 60 mL/min/1.73 sq.m Kidney failure less than 15 mL/min/1.73 sq.m eGFR Female 103 60 - 200 [facility] Non-AA Comment: REGIONAL Chronic Kidney Disease less LABORATORIES than 60 mL/min/1.73 sq.m Kidney failure less than 15 mL/min/1.73 sq.m Specimen Blood Performing Organization Address City/State/Zipcode Ph one Number [facility] [address] [place] [address] LABORATORIES documented in this encounter Visit Diagnoses [...]
--- NOTE | 2019-09-30 16:27 | ED General ---
General Stated Complaint: POSS BLOOD CLOT IN ARM Source of Information: Patient Exam Limitations: No Limitations History of Present Illness Date Seen by Provider: September 30, 2019 Time Seen by Provider: 16:23 Initial Comments To ER with possible blood clot in the right arm. She had surgery 5 days ago which involved a right salpingectomy for ectopic of the right adnexa. She then twisted at home and had some increased pain in the lower abdomen. She was seen for [facility]. Today, she noticed some redness and tenderness and a bit of swelling proximal to the IV insertion site on the time of surgery, this involves the right anterior upper arm. No shortness of breath or fevers. Does report increasing suprapubic abdominal pain Timing/Duration: 2-3 Days Severity: Moderate Associated Systoms: Nausea/Vomiting Allergies and Home Medications Allergies Coded Allergies: Sulfa (Sulfonamide Antibiotics) (Verified Allergy, Mild, HIVES, 06/20/19) Home Medications Acetaminophen 500 Mg Tablet, 1,000 MG PO Q8H PRN for PAIN-MILD (1-4) Prescribed by: NAIN AU on 09/26/19 0853 Ibuprofen 600 Mg Tablet, 600 MG PO Q6H Prescribed by: NAIN AU on 09/26/19 0853 Oxycodone HCl 5 Mg Tablet, 5 MG PO Q4H PRN for PAIN-SEVERE (8-10) Prescribed by: NAIN AU on 09/26/19 0853 Patient Home Medication List Home Medication List Reviewed: Yes Review of Systems Review of Systems Constitutional: see HPI; No chills, No fever EENTM: see HPI Respiratory: see HPI Cardiovascular: no symptoms reported Genitourinary: no symptoms reported Musculoskeletal: no symptoms reported Skin: see HPI Psychiatric/Neurological: No Symptoms Reported Hematologic/Lymphatic: No Symptoms Reported Immunological/Allergic: no symptoms reported Past Pvyenvx-Naqtzv-Zssllu Hx Patient Social History Drug of Choice: THC Type Used: Cigarettes Former Smoker, Quit: Jul 06, 2017 2nd Hand Smoke Exposure: No Recent Hopitalizations: No Immunizations Up To Date Tetanus Booster (TDap): Less than 5yrs PED Vaccines UTD: Yes Seasonal Allergies Seasonal Allergies: Yes Past Medical History Surgeries: Yes (GASTRIC SLEEVE) Section, Tubal Ligation Respiratory: No Currently Using CPAP: No Currently Using BIPAP: No Cardiac: No Neurological: No Reproductive Disorders: Yes (ectopic resulting in left salpingectomy) Female Reproductive Disorders: Menstrual Problems, 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 oz. 86.666882qi; 47.00 BMI Method:Stated General Appearance: No Apparent Distress, WD/WN Eyes: Bilateral Eye Normal Inspection, Bilateral Eye PERRL, Bilateral Eye EOMI Neck: Full Range of Motion, Normal Inspection Respiratory: Normal Breath Sounds, No Accessory Muscle Use, No Respiratory Distress Cardiovascular: Tachycardia (105-110) Gastrointestinal: Soft, Abnormal Bowel Sounds (hypoactive quite a bit of bruising to the lower abdomen infraumbilical region) Extremity: Normal Capillary Refill, Normal Inspection Neurologic/Psychiatric: Alert, Oriented x3 Skin: Normal Color, Warm/Dry Lymphatic: Other (there is some erythema and induration along with a palpable cord to the anterior upper arm on the right consistent with a superficial thrombophlebitis. Ultrasound is not available to evaluate the presence of deep vein thrombosis. I'll set her up for an outpatient appointment for this tomorrow.) Progress/Results/Core Measures Suspected Sepsis SIRS Temperature: Pulse: Respiratory Rate: Laboratory Tests 09/30/19 16:20: White Blood Count 13.7H Blood Pressure / Mean: Laboratory Tests 09/30/19 16:20: Creatinine 0.82, Platelet Count 300, Total Bilirubin 0.5 Results/Orders Lab Results Laboratory Tests Test 09/30/19 16:20 09/30/19 18:15 Range/Units White Blood Count 13.7 H 4.3-11.0 10^3/uL Red Blood Count 3.46 L 4.35-5.85 10^6/uL Hemoglobin 9.6 L 11.5-16.0 G/DL Hematocrit 30 L 35-52 % Mean Corpuscular Volume 87 80-99 FL Mean Corpuscular Hemoglobin 28 25-34 PG Mean Corpuscular Hemoglobin Concent 32 32-36 G/DL Red Cell Distribution Width 16.3 H 10.0-14.5 % Platelet Count 300 130-400 10^3/uL Mean Platelet Volume 9.0 7.4-10.4 FL Neutrophils (%) (Auto) 72 42-75 % Lymphocytes (%) (Auto) 18 12-44 % Monocytes (%) (Auto) 8 0-12 % Eosinophils (%) (Auto) 3 0-10 % Basophils (%) (Auto) 0 0-10 % Neutrophils # (Auto) 9.8 H 1.8-7.8 X 10^3 Lymphocytes # (Auto) 2.5 1.0-4.0 X 10^3 Monocytes # (Auto) 1.0 0.0-1.0 X 10^3 Eosinophils # (Auto) 0.3 0.0-0.3 10^3/uL Basophils # (Auto) 0.0 0.0-0.1 10^3/uL Sodium Level 137 135-145 MMOL/L Potassium Level 3.6 3.6-5.0 MMOL/L Chloride Level 104 98-107 MMOL/L Carbon Dioxide Level 23 21-32 MMOL/L Anion Gap 10 5-14 MMOL/L Blood Urea Nitrogen 10 7-18 MG/DL Creatinine 0.82 0.60-1.30 MG/DL Estimat Glomerular Filtration Rate > 60 BUN/Creatinine Ratio 12 Glucose Level 114 H 70-105 MG/DL Calcium Level 8.6 8.5-10.1 MG/DL Corrected Calcium 8.9 8.5-10.1 MG/DL Total Bilirubin 0.5 0.1-1.0 MG/DL Aspartate Amino Transf (AST/SGOT) 25 5-34 U/L Alanine Aminotransferase (ALT/SGPT) 31 0-55 U/L Alkaline Phosphatase 62 40-136 U/L Total Protein 7.1 6.4-8.2 GM/DL Albumin 3.6 3.2-4.5 GM/DL Urine Color RED H Urine Clarity CLOUDY Urine pH 6.5 5-9 Urine Specific [place] <=1.005 1.016-1.022 Urine Protein 2+ H NEGATIVE Urine Glucose (UA) NEGATIVE NEGATIVE Urine Ketones NEGATIVE NEGATIVE Urine Nitrite NEGATIVE NEGATIVE Urine Bilirubin NEGATIVE NEGATIVE Urine Urobilinogen 1.0 < = 1.0 MG/DL Urine Leukocyte Esterase 1+ H NEGATIVE Urine RBC (Auto) 3+ H NEGATIVE Urine RBC TNTC H /HPF Urine WBC 5-10 H /HPF Urine Squamous Epithelial Cells 2-5 /HPF Urine Crystals NONE /LPF Urine Bacteria FEW H /HPF Urine Casts NONE /LPF Urine Mucus SMALL H /LPF Urine Culture Indicated YES My Orders Orders - EFRA NORTNO APRN Cbc With Automated Diff (09/30/19 16:18) Comprehensive Metabolic Panel (09/30/19 16:18) Ua Culture If Indicated (09/30/19 16:18) Ed Iv/Invasive Line Start (09/30/19 16:18) Ct Abdomen/Pelvis W (09/30/19 16:18) Ketorolac Injection (Toradol Injection) (09/30/19 16:30) Ns Iv 1000 Ml (Sodium Chloride 0.9%) (09/30/19 16:30) Promethazine Injection (Phenergan Injec (09/30/19 16:30) Iohexol Injection (Omnipaque 350 Mg/Ml 1 (09/30/19 16:45) Received Contrast (Hold Metformin- Contr (09/30/19 16:45) Ns (Ivpb) (Sodium Chloride 0.9% Ivpb Bag (09/30/19 16:45) Urine Culture (09/30/19 18:15) Medications Given in ED Current Medications Medications Dose Ordered Sig/Ivonne Route Start Time Stop Time Status Last Admin Dose Admin Iohexol 100 ml ONCE ONCE IV 09/30/19 16:45 09/30/19 16:46 DC 09/30/19 16:52 100 ML Ketorolac Tromethamine 15 mg ONCE ONCE IVP 09/30/19 16:30 09/30/19 16:31 DC 09/30/19 16:28 15 MG Promethazine HCl 25 mg ONCE ONCE IVP 09/30/19 16:30 09/30/19 16:31 DC 09/30/19 16:28 25 MG Sodium Chloride 100 ml ONCE ONCE IV 09/30/19 16:45 09/30/19 16:46 DC 09/30/19 16:53 80 ML Vital Signs/I&O 09/30/19 16:05 Temp 36.9 Pulse 106 Resp 20 B/P (MAP) 132/79 (96) Pulse Ox 98 O2 Delivery Room Air Capillary Refill : Diagnostic Imaging Diagonstic Imaging: CT Comments NAME: SUREKHA MARCIAL [facility] REC#: [id number] PT STATUS: REG ER : 1990 PHYSICIAN: EFRA NORTON EXPORT DOCUMENTS CLERK ADMIT DATE: 09/30/19/ER Draft Date of Exam:09/30/19 CT ABDOMEN/PELVIS W PROCEDURE: CT abdomen and pelvis with contrast. TECHNIQUE: Multiple contiguous axial images were obtained through the abdomen and pelvis after administration of intravenous contrast. Auto Exposure Controls were utilized during the CT exam to meet ALARA standards for radiation dose reduction. INDICATION: Abdominal pain and cramping, one week post salpingectomy for ectopic gestation. COMPARISON with abdominal pelvic CT 07/11/2017. FINDINGS: There are no findings of an abdominal pelvic abscess, hemorrhage or contrast extravasation. There is trace amount of air within the lumen of the urinary bladder presumed from instrumentation. No extravasation of urinary tract contrast media. The kidneys unobstructed. There is opacification of the unremarkable appearing bilateral ureters throughout their length. There is a small amount of pelvic free fluid not uncommonly seen in a female patient of this age, particularly given recent surgery. No loculated collection or findings of an abscess. There is subcutaneous gas in the infraumbilical abdominal wall, likely postoperative. No abdominal wall fluid collection. Postoperative changes to the stomach noted. There was no appendicitis, no diverticulitis. The liver, gallbladder, spleen, adrenals and pancreas negative. The aortoiliac and mesenteric vessels nonaneurysmal. There is no findings of an ileus. IMPRESSION: 1. Small volume pelvic free fluid may be physiologic and/or residual surgical irrigant. Again, no evidence for hemorrhage, urinary extravasation or obstructive features. No findings of an abscess. There is some gas in the subcutaneous fat of the postoperative abdominal wall, likely postsurgical. 2. Remaining solid and hollow viscera unremarkable. Dictated on workstation # [id number] Dict: 09/30/19 1708 Trans: 09/30/19 1714 [facility] [id number] Interpreted by: CECI CHRISTIANSEN Electronically signed by: Departure Impression Primary Impression: Pelvic pain Additional Impression: Superficial thrombophlebitis of right upper extremity Disposition: HOME, SELF-CARE Condition: Stable Departure-Patient Inst. Decision time for Depature: 19:04 Referrals: JORDEN DAWSON (PCP) Primary Care Physician NAIN AU DO (Family) Primary Care Physician Patient Instructions: Phlebitis (DC) Add. Discharge Instructions: 1. Call the scheduling department tomorrow which has been highlighted on your outpatient order form. They will tell you what time to come in for this. Continue all current medications and treatments. EFRA NORTON EXPORT DOCUMENTS CLERK September 30, 2019 16:27
[2019-09-30 16:30] LABS: BASOPHILS % (AUTO) 0 % (0-10); EOSINOPHILS # (AUTO) 0.3 10^3/uL (0.0-0.3); EOSINOPHILS % (AUTO) 3 % (0-10); HEMATOCRIT 30 % (35-52); HEMOGLOBIN 9.6 G/DL (11.5-16.0); LYMPHOCYTES # (AUTO) 2.5 X 10^3 (1.0-4.0); LYMPHOCYTES % (AUTO) 18 % (12-44); MEAN CORPUSCULAR HEMOGLOBIN 28 PG (25-34); MEAN CORPUSCULAR HGB CONC 32 G/DL (32-36); MEAN CORPUSCULAR VOLUME 87 FL (80-99); MONOCYTES % (AUTO) 8 % (0-12); NEUTROPHILS # (AUTO) 9.8 X 10^3 (1.8-7.8); NEUTROPHILS % (AUTO) 72 % (42-75); PLATELET COUNT 300 10^3/uL (130-400); RED CELL DISTRIBUTION WIDTH 16.3 % (10.0-14.5); WHITE BLOOD COUNT 13.7 10^3/uL (4.3-11.0)
[2019-09-30] MEDS ORDERED: KETOROLAC 30 MG/ML VIAL IVP ONE (16:30)
[2019-09-30] MEDS ORDERED: PROMETHAZINE INJ 25 MG/ML (PHENERGAN) AMP IVP ONE (16:30)
[2019-09-30] MEDS ORDERED: NS IV 1000 ML 1,000 ML IV SCH (16:30)
[2019-09-30 16:37] LABS: ALBUMIN 3.6 GM/DL (3.2-4.5); CHLORIDE 104 MMOL/L (98-107); POTASSIUM 3.6 MMOL/L (3.6-5.0); SODIUM 137 MMOL/L (135-145)
[2019-09-30 16:38] LABS: CALCIUM 8.6 MG/DL (8.5-10.1)
[2019-09-30 16:39] LABS: GLUCOSE 114 MG/DL (70-105)
[2019-09-30 16:40] LABS: TOTAL PROTEIN 7.1 GM/DL (6.4-8.2)
[2019-09-30 16:41] LABS: BILIRUBIN,TOTAL 0.5 MG/DL (0.1-1.0); CARBON DIOXIDE 23 MMOL/L (21-32)
[2019-09-30 16:43] LABS: ALKALINE PHOSPHATASE 62 U/L (40-136); CREATININE SERUM 0.82 MG/DL (0.60-1.30); GFR ESTIMATED > 60
[2019-09-30 16:44] LABS: BUN/CREATININE RATIO 12
[2019-09-30] MEDS ORDERED: NS 100 ML (IVPB) BAG IV ONE (16:45)
[2019-09-30] MEDS ORDERED: HOLD METFORMIN - RECEIVED CONTRAST 20 ML VIAL IV SCH (16:45)
[2019-09-30] MEDS ORDERED: IOHEXOL 350 MG/ML 100 ML (OMNIPAQUE 350) VIAL IV ONE (16:45)
[2019-09-30 16:46] LABS: ALANINE AMINOTRANSFERASE 31 U/L (0-55)
--- NOTE | 2019-09-30 17:16 | Diagnostic Imaging Report ---
PROCEDURE: CT abdomen and pelvis with contrast. TECHNIQUE: Multiple contiguous axial images were obtained through the abdomen and pelvis after administration of intravenous contrast. Auto Exposure Controls were utilized during the CT exam to meet ALARA standards for radiation dose reduction. INDICATION: Abdominal pain and cramping, one week post salpingectomy for ectopic gestation. COMPARISON with abdominal pelvic CT 07/11/2017. FINDINGS: There are no findings of an abdominal pelvic abscess, hemorrhage or contrast extravasation. There is trace amount of air within the lumen of the urinary bladder presumed from instrumentation. No extravasation of urinary tract contrast media. The kidneys unobstructed. There is opacification of the unremarkable appearing bilateral ureters throughout their length. There is a small amount of pelvic free fluid not uncommonly seen in a female patient of this age, particularly given recent surgery. No loculated collection or findings of an abscess. There is subcutaneous gas in the infraumbilical abdominal wall, likely postoperative. No abdominal wall fluid collection. Postoperative changes to the stomach noted. There was no appendicitis, no diverticulitis. The liver, gallbladder, spleen, adrenals and pancreas negative. The aortoiliac and mesenteric vessels nonaneurysmal. There is no findings of an ileus. IMPRESSION: 1. Small volume pelvic free fluid may be physiologic and/or residual surgical irrigant. Again, no evidence for hemorrhage, urinary extravasation or obstructive features. No findings of an abscess. There is some gas in the subcutaneous fat of the postoperative abdominal wall, likely postsurgical. 2. Remaining solid and hollow viscera unremarkable. Dictated by: Dictated on workstation # [id number]
[2019-09-30 18:39] LABS: BILIRUBIN,URINE NEGATIVE (NEGATIVE); CLARITY,URINE CLOUDY; COLOR,URINE RED; GLUCOSE, URINE (UA) NEGATIVE (NEGATIVE); KETONES,URINE NEGATIVE (NEGATIVE); LEUKOCYTE ESTERASE ,URINE 1+ (NEGATIVE); NITRITE,URINE NEGATIVE (NEGATIVE); PH,URINE 6.5 (5-9); PROTEIN,URINE 2+ (NEGATIVE)
[2019-09-30 18:52] LABS: BACTERIA,URINE FEW /HPF; RBC,URINE TNTC /HPF
[2019-09-30 19:11] VITALS: BP 132/79
[2019-09-30] MEDS ORDERED: cefTRIAXone FOR IV USE 1,000 MG in WATER (STERILE) FOR INJECTION 10 ML IV ONE (19:15)
--- NOTE | 2019-10-03 08:42 | NUR ---
RX MACROBID [id number] CALLED TO [facility].
== END 2019-09-30 19:11 | disposition home or self-care (01) ==
LOC: EDUNIT# 15:59 → ER 16:01
DX: R10.2 Pelvic and perineal pain (principal); I80.8 Phlebitis and thrombophlebitis of other sites; M54.9 Dorsalgia, unspecified; G89.29 Other chronic pain; Z88.2 Allergy status to sulfonamides; Z87.891 Personal history of nicotine dependence; Z90.721 Acquired absence of ovaries, unilateral
CPT/HCPCS: 36415; 74177; 80053; 81000; 85025; 87077; 87088; 87186

== ENCOUNTER → 2019-10-01 | Outpatient (CLI) | payer MEDICAID ==
--- NOTE | 2019-10-01 19:11 | Diagnostic Imaging Report ---
INDICATION: Right arm pain and swelling. Grayscale, color-flow and duplex Doppler evaluation of the right upper extremity venous system was performed. Right internal jugular vein as well as the right subclavian and axillary vein are patent. The brachial vein is patent. Basilic vein is patent. There is thrombus within the cephalic vein extending from the upper arm to the antecubital fossa. Radial and ulnar veins are patent. There are no fluid collections. IMPRESSION: Cephalic vein thrombosis. No other significant abnormality is detected. Dictated by: Dictated on workstation # [id number]
== END ==
LOC: RAD 14:49
PROVIDERS: ATTEND Nurse Practitioner Family
DX: I82.611 Acute embolism and thrombosis of superficial veins of right upper extremity (principal)

== ENCOUNTER 2019-12-20 21:31 | Emergency (ER) | payer MEDICAID ==
[~2019-12-20] VITALS: Ht 154.9 cm; Wt 93.4 kg
--- NOTE | 2019-12-20 21:54 | NUR ---
This RN attempts to obtain a Covid swab. Patient wouldn't hold still and ultimately declined the swab.
--- NOTE | 2019-12-20 22:06 | ED Cough/URI ---
General Chief Complaint: Respiratory Problems Stated Complaint: COUGH,CHILLS,VOMITING,NAUSEA,SOA Nursing Triage Note: Patient states that she has been sick for 2 days. She reports having a cough with green sputum and shortness of breath. Patient denies having a fever. Patient states "I just want an inhaler". Patient states that she has also been having some mild chest pain that she believes is from coughing. Sepsis Screen: No Definite Risk History of Present Illness Date Seen by Provider: Dec 20, 2019 Time Seen by Provider: 21:50 Initial Comments Patient is here with cough and minimal sputum production no chest pain no fever no chills is like she has been short of breath over the last 2 days concerned s he might have COVID no exposure has some history of allergies occasionally takes qyyj-rkr-qxaiava medications but is not on any specific medicine Timing/Duration: week Severity/Quality: mild, productive cough Prior Episodes/Possible Cause: occasional episodes Associated Symptoms: chest pain/soreness, fever/chills, lightheadedness, nasal congestion, shortness of breath Allergies and Home Medications Allergies Coded Allergies: Sulfa (Sulfonamide Antibiotics) (Verified Allergy, Mild, HIVES, 06/20/19) Home Medications Acetaminophen 500 Mg Tablet, 1,000 MG PO Q8H PRN for PAIN-MILD (1-4) Prescribed by: NAIN AU on 09/26/19 0853 Ibuprofen 600 Mg Tablet, 600 MG PO Q6H Prescribed by: NAIN AU on 09/26/19 0853 Oxycodone HCl 5 Mg Tablet, 5 MG PO Q4H PRN for PAIN-SEVERE (8-10) Prescribed by: NAIN AU on 09/26/19 0853 Patient Home Medication List Home Medication List Reviewed: Yes Review of Systems Review of Systems Constitutional: No chills, No fever, No malaise EENTM: no symptoms reported Respiratory: cough, phlegm, short of breath Cardiovascular: No chest pain, No palpitations Gastrointestinal: No abdominal pain, No diarrhea, No nausea, No vomiting Genitourinary: No dysuria, No frequency Musculoskeletal: No joint pain, No joint swelling Skin: no symptoms reported Psychiatric/Neurological: Denies Headache, Denies Numbness, Denies Tingling Past Fjvklak-Bzqekj-Nrnrlu Hx Past Med/Social Hx: Reviewed Nursing Past Med/Soc Hx Patient Social History Alcohol Use: Denies Use Recreational Drug Use: No Drug of Choice: THC Smoking Status: Never a Smoker Type Used: Cigarettes Former Smoker, Quit: Jul 06, 2017 2nd Hand Smoke Exposure: No Recent Foreign Travel: No Contact w/Someone Who Travel: No Recent Infectious Disease Expo: No Recent Hopitalizations: No Physical Abuse: No Sexual Abuse: No Mistreated: No Fear: No Immunizations Up To Date Tetanus Booster (TDap): Less than 5yrs PED Vaccines UTD: Yes Seasonal Allergies Seasonal Allergies: Yes Past Medical History Surgeries: Yes (GASTRIC SLEEVE) Section, Tubal Ligation Respiratory: No Currently Using CPAP: No Currently Using BIPAP: No Cardiac: No Neurological: No Reproductive Disorders: Yes (ectopic resulting in left salpingectomy) Female Reproductive Disorders: Menstrual Problems, 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 oz. 86.560689lx; 38.00 BMI Method:Stated General Appearance: WD/WN HEENT: PERRL/EOMI, TMs normal, pharynx normal Neck: supple, normal inspection Respiratory: lungs clear, normal breath sounds, no respiratory distress Cardiovascular: regular rate, rhythm, no murmur Gastrointestinal: non tender, no organomegaly Extremities: normal range of motion, non-tender Neurologic/Psychiatric: no motor/sensory deficits, alert, oriented x 3 Skin: normal color, warm/dry Progress/Results/Core Measures Suspected Sepsis Recent Fever Within 48 Hours: No Infection Criteria Present: None New/Unexplained Altered Menta: No Sepsis Screen: No Definite Risk SIRS Temperature: Pulse: 91 Respiratory Rate: 20 Laboratory Tests 12/20/19 22:12: White Blood Count 11.1H Blood Pressure 143 /88 Mean: 106 Laboratory Tests 12/20/19 22:12: Creatinine 0.80, Platelet Count 289, Total Bilirubin < 0.2 Results/Orders Lab Results Laboratory Tests Test 12/20/19 22:12 Range/Units White Blood Count 11.1 H 4.3-11.0 10^3/uL Red Blood Count 4.18 L 4.35-5.85 10^6/uL Hemoglobin 10.8 L 11.5-16.0 G/DL Hematocrit 33 L 35-52 % Mean Corpuscular Volume 80 80-99 FL Mean Corpuscular Hemoglobin 26 25-34 PG Mean Corpuscular Hemoglobin Concent 32 32-36 G/DL Red Cell Distribution Width 14.6 H 10.0-14.5 % Platelet Count 289 130-400 10^3/uL Mean Platelet Volume 9.2 7.4-10.4 FL Neutrophils (%) (Auto) 54 42-75 % Lymphocytes (%) (Auto) 33 12-44 % Monocytes (%) (Auto) 9 0-12 % Eosinophils (%) (Auto) 3 0-10 % Basophils (%) (Auto) 1 0-10 % Neutrophils # (Auto) 6.0 1.8-7.8 X 10^3 Lymphocytes # (Auto) 3.6 1.0-4.0 X 10^3 Monocytes # (Auto) 1.0 0.0-1.0 X 10^3 Eosinophils # (Auto) 0.4 H 0.0-0.3 10^3/uL Basophils # (Auto) 0.1 0.0-0.1 10^3/uL D-Dimer 0.44 0.00-0.49 UG/ML Sodium Level 138 135-145 MMOL/L Potassium Level 4.0 3.6-5.0 MMOL/L Chloride Level 105 98-107 MMOL/L Carbon Dioxide Level 21 21-32 MMOL/L Anion Gap 12 5-14 MMOL/L Blood Urea Nitrogen 12 7-18 MG/DL Creatinine 0.80 0.60-1.30 MG/DL Estimat Glomerular Filtration Rate > 60 BUN/Creatinine Ratio 15 Glucose Level 108 H 70-105 MG/DL Calcium Level 9.5 8.5-10.1 MG/DL Corrected Calcium 9.4 8.5-10.1 MG/DL Total Bilirubin < 0.2 0.1-1.0 MG/DL Aspartate Amino Transf (AST/SGOT) 21 5-34 U/L Alanine Aminotransferase (ALT/SGPT) 25 0-55 U/L Alkaline Phosphatase 68 40-136 U/L C-Reactive Protein 0.96 H <0.50 MG/DL Total Protein 7.4 6.4-8.2 GM/DL Albumin 4.1 3.2-4.5 GM/DL My Orders Orders - GEORGIE DELEON JR, MD Chest 1 View Ap/Pa Only (12/20/19 22:01) Cbc With Automated Diff (12/20/19 22:) Comprehensive Metabolic Panel (12/20/19 22:) Crp Fs (12/20/19 22:) Fibrin Degradation Products (12/20/19:) Ekg Tracing (12/20/19 22:) Coronavirus Sars-Cov-2 So 2018 (12/20/19 22:06) Vital Signs/I&O 12/20/19 21:35 Temp 37.1 Pulse 91 Resp 20 B/P (MAP) 143/88 (106) Pulse Ox 98 O2 Delivery Room Air Capillary Refill : Less Than 3 Seconds Blood Pressure Mean: 106 ECG Initial ECG Impression Date: Dec 20, 2019 Initial ECG Impression Time: 21:45 Initial ECG Rate: 76 Initial ECG Rhythm: Normal Sinus Initial ECG Impression: Normal Departure Communication (Admissions) At this point without COVID we'll go ahead with antibiotics and an inhaler at her request will follow up with her PCP for test results we'll go ahead and quarantine until that test comes back. Impression Primary Impression: Cough Disposition: 01 HOME, SELF-CARE Condition: Stable Departure-Patient Inst. Referrals: NO,LOCAL PHYSICIAN (PCP) Primary Care Physician JORDEN DAWSON (Family) Primary Care Physician Patient Instructions: Cough, Adult (DC) Scripts Cephalexin (Cephalexin) 500 Mg Tablet 500 MG PO QID for 10 Days, #20 TAB 0 Refills Prov: GEORGIE DELEON JR, MD 12/20/19 GEORGIE DELEON JR, MD Dec 20, 2019 22:06
[2019-12-20 22:27] LABS: WHITE BLOOD COUNT 11.1 10^3/uL (4.3-11.0)
[2019-12-20 22:28] LABS: BASOPHILS % (AUTO) 1 % (0-10); EOSINOPHILS % (AUTO) 3 % (0-10); HEMATOCRIT 33 % (35-52); HEMOGLOBIN 10.8 G/DL (11.5-16.0); LYMPHOCYTES % (AUTO) 33 % (12-44); MEAN CORPUSCULAR HEMOGLOBIN 26 PG (25-34); MEAN CORPUSCULAR HGB CONC 32 G/DL (32-36); MEAN CORPUSCULAR VOLUME 80 FL (80-99); MEAN PLATELET VOLUME 9.2 FL (7.4-10.4); MONOCYTES % (AUTO) 9 % (0-12); NEUTROPHILS % (AUTO) 54 % (42-75); PLATELET COUNT 289 10^3/uL (130-400); RED CELL DISTRIBUTION WIDTH 14.6 % (10.0-14.5)
[2019-12-20 22:29] LABS: BASOPHILS # (AUTO) 0.1 10^3/uL (0.0-0.1); EOSINOPHILS # (AUTO) 0.4 10^3/uL (0.0-0.3); LYMPHOCYTES # (AUTO) 3.6 X 10^3 (1.0-4.0)
[2019-12-20 22:49] LABS: BILIRUBIN,TOTAL < 0.2 MG/DL (0.1-1.0); BUN/CREATININE RATIO 15; CALCIUM 9.5 MG/DL (8.5-10.1); CARBON DIOXIDE 21 MMOL/L (21-32); CHLORIDE 105 MMOL/L (98-107); GFR ESTIMATED > 60; GLUCOSE 108 MG/DL (70-105); SODIUM 138 MMOL/L (135-145)
[2019-12-20 22:50] LABS: ALANINE AMINOTRANSFERASE 25 U/L (0-55); ALBUMIN 4.1 GM/DL (3.2-4.5); ALKALINE PHOSPHATASE 68 U/L (40-136); TOTAL PROTEIN 7.4 GM/DL (6.4-8.2)
[2019-12-20] MEDS ORDERED: CEPH500T PO (22:56)
[2019-12-20] MEDS ORDERED: RX-ALBUTEROL INHALER (VENTOLIN HFA) 18 GM IH STA (22:57)
[2019-12-20] MEDS ORDERED: CEPHALEXIN 250 MG (KEFLEX) CAP PO ONE (23:00)
[2019-12-20 23:07] VITALS: BP 140/63
--- NOTE | 2019-12-21 09:36 | Diagnostic Imaging Report ---
EXAMINATION: Chest radiograph, portable AP view. DATE: 12/20/2019 10:15 PM hours. INDICATION: 29-year-old female, cough and shortness of breath. COMPARISON: None. FINDINGS: Heart size and mediastinal contours are unremarkable. There is no identified pneumothorax. There is no large pleural effusion. There do appear to be subtle opacities in the right upper lobe. IMPRESSION: 1. A subtle right upper lobe airspace consolidation which is concerning for pneumonia or other alveolar consolidative process. Report given to [facility] Nurse (Aliya) at 9:35 AM 12/21/2019/andrade Dictated by: Dictated on workstation # [id number]
[2019-12-21] MEDS ORDERED: CEFD300C3 PO (09:51)
[2019-12-21] MEDS ORDERED: AZIT250T12 PO (09:51)
--- NOTE | 2019-12-21 09:54 | NUR ---
Patient called at this time and notfied of the radiologist overread that showed potential pnumonia in the right upper lobe. She was instructed to stop taking the prescribed cephlexin and to begin the medications amoxicillin and omnicef prescriptions that were transmitted to her perferred pharmacy.
== END 2019-12-20 23:07 | disposition home or self-care (01) ==
LOC: EDUNIT# 21:31 → ER FS 21:33
DX: R05 Cough (principal); G89.29 Other chronic pain; M54.9 Dorsalgia, unspecified; Z87.891 Personal history of nicotine dependence; Z88.2 Allergy status to sulfonamides; Z79.891 Long term (current) use of opiate analgesic; Z20.828 Contact with and (suspected) exposure to other viral communicable diseases
CPT/HCPCS: 36415; 71045; 80053; 85025; 85379; 86141; 99284; U0002; 87635

== ENCOUNTER 2020-04-13 06:04 | Outpatient (RCR) | payer MEDICAID ==
[~2020-04-13 06:04] MED LIST changes: +AZIT250T12 PO; +CEFD300C3 PO; +CEPH500T PO; -OXYC5TAB96 PO
== END 2020-04-13 16:00 | disposition home or self-care (01) ==
LOC: PREOP 06:04
PROVIDERS: ATTEND Obstetrics & Gynecology
DX: Z01.818 Encounter for other preprocedural examination (principal)

== ENCOUNTER 2020-04-22 05:44 | Outpatient (RCR) | payer MEDICAID ==
[~2020-04-22] VITALS: Ht 152 cm; Wt 86.3 kg
[2020-04-22] MEDS ORDERED: FLUO20CA42 PO (12:46)
[2020-04-22] MEDS ORDERED: DESL1TBM2 PO (12:46)
[2020-04-22] MEDS ORDERED: LITH150C PO ×2 (12:46)
[2020-04-22] MEDS ORDERED: MULT-1136 PO (12:46)
[2020-04-22] MEDS ORDERED: CLON0.5T PO (12:46)
[2020-04-22] MEDS ORDERED: DIPH50CA PO (12:46)
== END 2020-04-22 13:08 | disposition home or self-care (01) ==
LOC: PREOP 05:44
PROVIDERS: ATTEND Obstetrics & Gynecology
DX: Z01.818 Encounter for other preprocedural examination (principal); Z20.828 Contact with and (suspected) exposure to other viral communicable diseases

== ENCOUNTER → 2020-04-24 | Outpatient (CLI) | payer MEDICAID ==
[~2020-04-24] MED LIST changes: +CLON0.5T PO; +DCS100C PO; +DESL1TBM2 PO; +DIPH50CA PO; +FLUO20CA42 PO; +IBUP-844 PO; +LITH150C PO; +MULT-1136 PO
== END ==
LOC: LAB FS 10:30
PROVIDERS: ATTEND Obstetrics & Gynecology
DX: Z01.812 Encounter for preprocedural laboratory examination (principal); N80.9 Endometriosis, unspecified; N70.11 Chronic salpingitis; K66.0 Peritoneal adhesions (postprocedural) (postinfection); Z20.828 Contact with and (suspected) exposure to other viral communicable diseases
CPT/HCPCS: 87635

== ENCOUNTER 2020-04-28 06:05 | Day surgery (SDC) | payer MEDICAID ==
[2020-04-28] VITALS (13 sets, daily range): BP systolic 96–149; BP diastolic 52–85
[~2020-04-28] VITALS: Ht 152 cm; Wt 86.3 kg
[~2020-04-28 06:05] MED LIST changes: -DCS100C PO; -IBUP-844 PO
[2020-04-28] MEDS ORDERED: ceFAZolin INJECTION 1,000 MG in WATER (STERILE) FOR INJECTION 10 ML IV ONE (06:15)
[2020-04-28] MEDS ORDERED: metroNIDAZOLE 500MG/100ML IVPB 100 ML IV ONE (06:15)
[2020-04-28] MEDS ORDERED: ONDANSETRON 4 MG/2 ML (SDV) Z0FRAN IV ONE (06:45)
[2020-04-28] MEDS ORDERED: FAMOTIDINE 20MG/2ML IV (PEPCID) IV ONE (06:45)
[2020-04-28] MEDS ORDERED: LIDOCAINE/EPI 1%-1:100,000 (XYLOCAINE) 50 ML ONE (06:51)
[2020-04-28 07:06] LABS: BASOPHILS % (AUTO) 0 % (0-10); EOSINOPHILS # (AUTO) 0.3 10^3/uL (0.0-0.3); EOSINOPHILS % (AUTO) 2 % (0-10); HEMATOCRIT 34 % (35-52); HEMOGLOBIN 10.5 g/dL (11.5-16.0); LYMPHOCYTES # (AUTO) 2.7 10^3/uL (1.0-4.0); LYMPHOCYTES % (AUTO) 20 % (12-44); MEAN CORPUSCULAR HEMOGLOBIN 25 pg (25-34); MEAN CORPUSCULAR HGB CONC 31 g/dL (32-36); MEAN CORPUSCULAR VOLUME 81 fL (80-99); MEAN PLATELET VOLUME 9.6 fL (9.0-12.2); MONOCYTES # (AUTO) 0.8 10^3/uL (0.0-1.0); MONOCYTES % (AUTO) 6 % (0-12); NEUTROPHILS # (AUTO) 9.8 10^3/uL (1.8-7.8); NEUTROPHILS % (AUTO) 72 % (42-75); PLATELET COUNT 288 10^3/uL (130-400); WHITE BLOOD COUNT 13.7 10^3/uL (4.3-11.0)
[2020-04-28] MEDS: LACTATED RINGERS 1,000 ML IV PRN ×2 (07:08→09:00)
[2020-04-28] MEDS ORDERED: LIDOCAINE PF 2% 5 ML (XYLOCAINE) VIAL ONE (07:09)
[2020-04-28] MEDS ORDERED: SEVOFLURANE (ULTANE) 15 ML INHAL SOLN ONE ×6 (07:09→09:46)
[2020-04-28] MEDS ORDERED: proPOfol 200 MG/20 ML (DIPRIVAN) VIAL IV ONE (07:09)
[2020-04-28] MEDS ORDERED: ONDANSETRON 4 MG/2 ML (SDV) Z0FRAN ONE (07:09)
[2020-04-28] MEDS ORDERED: ROCURONIUM 10 MG/ML 5 ML SYRINGE IV ONE (07:09)
[2020-04-28] MEDS ORDERED: fentaNYL INJECTION 100 MCG/2 ML AMP ONE ×2 (07:10→09:48)
[2020-04-28] MEDS ORDERED: MIDAZOLAM 2 MG/2 ML (VERSED) VIAL ONE ×2 (07:10→08:09)
--- NOTE | 2020-04-28 07:51 | Progress Note-Pre Operative ---
Pre-Operative Progress Note H&P Reviewed The H&P was reviewed, patient examined and no changes noted. Date Seen by Provider: Apr 28, 2020 Time Seen by Provider: 07:32 Date H&P Reviewed: Apr 28, 2020 Time H&P Reviewed: 07:40 Pre-Operative Diagnosis: endometriosis, chronic pelvic pain, dysmenorrhea, adhesions NAIN AU DO Apr 28, 2020 07:51
[2020-04-28] MEDS ORDERED: NEOSTIGMINE 3 MG/3 ML VIAL ONE (09:45)
[2020-04-28] MEDS ORDERED: GLYCOPYRROLATE 0.2 MG/ML (ROBINUL) 2 ML VIAL ONE (09:45)
--- NOTE | 2020-04-28 09:58 | Operative Report ---
Operative Report Date of Procedure/Surgery Apr 28, 2020 Surgeon (s) NAIN AU DO Instrument Checker (s): NA Post-Operative Diagnosis endometriosis, history of bilateral salpingectomy Procedure Performed RaTH, removal of tubal remnants extensive lysis of adhesions Description of Procedure Anesthesia Type: General Estimated blood loss (mL): minimal Specimen(s) collected/removed uterus and bilateral tubal remnants Description of the Procedure After informed consent was obtained, patient was taken into the operating room where general anesthetic was found to be adequate. She was prepped and draped in the usual sterile fashion in the dorsal lithotomy position. A Heath catheter was placed. A speculum was placed in the vagina. The cervix was visualized and the anterior lip was grasped with a sharp toothed tenaculum.The uterus was sounded and depth was approximately 8 centimeters. I placed the Kell device 8 cm and a 3.0 cm collar was advanced over the cervix. I inserted the Kell without difficulty, inflating the balloon and securing it around the fornix of the cervix. The collar was then secured with sutures at 12 o'clock. Attention was then turned to the patient's abdomen. A supraumbilical incision was made about 8 mm. A Veress needle was inserted and I confirmed intraabdominal placement with a drop in pressure and the saline drop test. The opening pressure was 9 mmHg. I then insufflated the abdomen to a maximum of 15 mmHg with warmed CO2 gas. I placed an additional 8 mm trocar in the left abdomen lateral to the umbilicus approximately 15 cm. It was determined that this could be completed robotically. The second robotic port was placed about 12 cm lateral to the right placement. This was an 8 mm trocar. These were placed under direct visualization of the laparoscope. 1% Lidocaine with epinephrine was injected prior to placement of all trocars. When all placements were confirmed, the patient was placed in steep Trendelenburg allowing adequate visualization and the robot was brought in for docking. The docking was accomplished without difficulty. I then took over the command of the robot utilizing the vessel sealer and monopolar prabhakar. There was evidence of bilateral salpingectomy due to ectopic pregnancies. However, there was a right tubal remnant. This was removed with the salpingectomy with sharp dissection. Also the left ovary was plastered to the left pelvic side wall and to the mesentery of the colon on the left. There was endometriosis (chocolate cyst) on the right ovary. I fulgerated the endometriosis on the right ovary. I was able to visualize the round ligaments bilaterally and grasped them and cauterized with bipolar cautery and then cut with my prabhakar. Then, I grasped the uterine ovarian ligaments bilaterally and transected using the vessel sealer. There was good hemostasis. I then moved my dissection to the posterior leaves of the broad ligament. I dissected the posterior leaves of the broad ligament off the uterine arteries skeletonizing them bilaterally. I then took a second clamp with the vessel sealer and with the prabhakar, transected the vessels away from the lateral aspect to the cervical stroma. These vessels were very dilated and tortuous. I dissected the anterior peritoneum off the lower uterine segment. I continually pushed the bladder back and I took excessively great care and I was eventually able to dissect the vesicouterine peritoneum off the lower uterine segment. There was no evidence of bladder injury. I then dissected in a V fashion towards the midline between the uterosacral ligaments. This allowed me to skeletonize the uterine vessels bilaterally. The balloon on the KELL was insufflated. This allowed me to see the KELL circumferentially. I then performed a colpotomy posteriorly and then amputate with cervix away from the vaginal fornix. I then continued the colpotomy circumferentially. Once this was performed, the assistant oceanographer removed the uterus, tubes and ovaries through the vagina. She then packed the vagina with a laparotomy sponge to maintain the pneumoperitoneum. . I then began closure of the vaginal cuff. I closed the apices of the vaginal cuff with 2-0 Vicryl V lock sutures with a colposuspension through the uterosacral ligaments. This suspended the apices of the vaginal cuff. I extended this to the midline from both sides and overlapped the V lock sutures in the midline. Excellent closure is noted and hemostasis is achieved. There was an Chinedu Masters window on the right. This had been noticed on previous laparoscopies and appeared to be about the same, but there was no endometriosis noted (as there had been in the past. I opted not to place a colpotomy stitch due to this however. At this point, I dissected the left ovary off the left pelvic side wall with sharp dissection and minimal cautery. In addition, I was able to dissect this off the epiploic of the colon. This was difficult as the ovary was completed adherent. But was able to be dissected with care and without difficulty or much bleeding. This added 20-30 minutes to the surgical time. All the needles were removed from the patient's abdomen. The pelvis was irrigated. There was no active bleeding noted. I placed Surgiflow along the vaginal cuff and the dissected area on the left side. Now, the robotic instruments were removed and the robot was undocked. Bilateral ureters were seen the entire time during the surgery and were peristalsing. There was no excessive bleeding noted. The trocars were removed under direct visualization. The laparoscopic sites were visualized and found to be hemostatic. The trocar sites were injected with 1% lidocaine with epinephrine. The skin incisions were closed with 4-0 Monocryl in a subcuticular fashion and then with Dermabond. Op sites were placed over the incision sites. The instruments were removed from the vagina and I noted there were no abrasions The patient was awakened and taken to recovery in a stable condition. Sponge, l ap, needle and instrument counts were correct times two. Findings of the Procedure Left ovary plastered to the left pelvic sidewall and the colon epiploica boggy enlarged uterus endometriosis adhesions [facility] Allergies and Home Medications Allergies Coded Allergies: Sulfa (Sulfonamide Antibiotics) (Verified Allergy, Mild, HIVES, 04/22/20) Home Medications Clonazepam 0.5 Mg Tablet, 0.5 MG PO BID, (Reported) Desloratadine/Pseudoephedrine 1 Each Tbmp.12hr, 1 EACH PO DAILY, (Reported) Diphenhydramine HCl 50 Mg Capsule, 100 MG PO HS, (Reported) Fluoxetine HCl 20 Mg Capsule, 20 MG PO DAILY, (Reported) [place] Carbonate 150 Mg Capsule, 300 MG PO BID, (Reported) [place] Carbonate 150 Mg Capsule, 150 MG PO NOON, (Reported) Multivitamin 1 Each Tablet, 1 EACH PO DAILY, (Reported) Patient Home Medication List Home Medication List Reviewed: Yes NAIN AU DO Apr 28, 2020 09:58
[2020-04-28] MEDS ORDERED: morphine INJ 4 MG/ML 1 ML (VIAL/SYRINGE) IVP PRN (10:00)
[2020-04-28] MEDS ORDERED: ONDANSETRON 4 MG (ZOFRAN) ORAL DISSOLVE TAB PO PRN (10:00)
[2020-04-28] MEDS ORDERED: CHLORASEPTIC LOZENGE MM PRN (10:00)
[2020-04-28] MEDS ORDERED: MEPERIDINE (DEMEROL) INJ 50 MG/ML IVP ONE (10:30)
[2020-04-28] MEDS ORDERED: PROMETHAZINE INJ 25 MG/ML (PHENERGAN) AMP IVP ONE (10:30)
[2020-04-28] MEDS ORDERED: ONDANSETRON 4 MG/2 ML (SDV) Z0FRAN IVP PRN (10:30)
[2020-04-28] MEDS ORDERED: HYDROmorphone 2 MG/ML VIAL (DILAUDID) IV ONE (10:30)
[2020-04-28] MEDS ORDERED: morphine INJ 10 MG/ML 1ML (SYR OR VIAL) IVP ONE (10:30)
[2020-04-28] MEDS ORDERED: KETOROLAC 30 MG/ML VIAL ONE (10:42)
[2020-04-28] MEDS: KETOROLAC 30 MG/ML VIAL IV SCH ×3 (10:47→22:43)
--- NOTE | 2020-04-28 11:10 | NUR ---
Surekha Marcial admitted to room 3304-1, after a robotic assisted laproscopic total hysterectomy per Dr. Solares, accompanied by PACU staff.SUREKHA MARCIAL introduced to surroundings, call light, bed controls, phone, TV, temperature control, lights, meal times, smoking policy, visitor policy, side rail policy, bathrooms and showers.
[2020-04-28] MEDS ORDERED: IBUPROFEN 600 MG (MOTRIN) TAB PO SCH (12:00)
[2020-04-28] MEDS: ACETAMINOPHEN 500 MG TAB (TYLENOL) PO SCH ×2 (14:11→22:43)
--- NOTE | 2020-04-28 14:14 | NUR ---
IS instructions given to pt. Pt has goal of 2400. Pt attempts IS. Verbalizes understanding for how often to use.
[2020-04-28] MEDS ORDERED: OXC5T PO (14:39)
[2020-04-28] MEDS ORDERED: ACET-93 PO (14:39)
[2020-04-28] MEDS ORDERED: IBUP-844 PO (14:39)
[2020-04-28] MEDS ORDERED: DCS100C PO (14:39)
--- NOTE | 2020-04-28 14:40 | Discharge Inst-Women's Service ---
Discharge Inst-Women's Serv Depart Medication/Instructions New, Converted or Re-Newed RX: Other (transmitted and on chart) Final Diagnosis endometriosis dysmenorrhea abnormal uterine bleeding Problems Reviewed?: Yes Consults/Follow Up Additional Follow Up: Yes (1 week for incision check, 10-12 weeks for pelvic exam) Activity Activity: Activity as Tolerated Driving Instructions: No Driving for 1 Week NO SMOKING: NO SMOKING Nothing Inside Vagina: No Douching, No [place] (10-12 weeks (until cleared)), No Tampons Diet Discharge Diet: No Restrictions Symptoms to Report to : Swelling Increased, Bleeding Excessive, Pain Increased, Fever Over 101 Degrees F, Vaginal Bleeding Increase, Cramps in Feet or Legs, Vaginal Discharge Foul For Any Problems or Questions: Contact Your Physician Skin/Wound Care Infection Signs and Symptoms: Increased Redness, Foul Odor of Wound, Increased Drainage, Skin Itchy or Has a Rash, Increased Swelling, Temperature Above 101 F Operative Area Clean and Dry: You May Remove Bandage (in 3 days or if soiled or wet) Stitches/David/Dermabond: Dermabond Bathing Instructions: NAIN Engle DO Apr 28, 2020 14:40
[2020-04-28] MEDS: LACTATED RINGERS 1,000 ML IV SCH ×2 (17:07→19:39)
--- NOTE | 2020-04-28 19:30 | NUR ---
Pt sitting up in bed on phone, denies pain, no needs at this time.
[2020-04-28] MEDS ORDERED: DOCUSATE SODIUM 100 MG (COLACE) CAP PO SCH (21:00)
[2020-04-28] MEDS ORDERED: clonazePAM 0.5 MG (KlonoPIN) TAB PO SCH (21:00)
[2020-04-28] MEDS ORDERED: LITHIUM CARBONATE 150 MG CAP PO SCH (21:00)
[2020-04-29] MEDS: LACTATED RINGERS 1,000 ML IV SCH (03:05)
[2020-04-29 03:10] VITALS: BP 99/54
[2020-04-29] MEDS: KETOROLAC 30 MG/ML VIAL IV SCH (05:04)
[2020-04-29] MEDS: ACETAMINOPHEN 500 MG TAB (TYLENOL) PO SCH (05:37)
[2020-04-29] MEDS ORDERED: FLUoxetine HCL 20 MG (PROzac) CAP PO SCH (09:00)
--- NOTE | 2020-04-29 10:30 | NUR ---
Vital signs taken. Pt requesting pain medication. Physical shift assessment completed.
[2020-04-29 10:39] VITALS: BP 128/60
--- NOTE | 2020-04-29 10:45 | NUR ---
Discharge instructions given to pt, pt verbalizes understanding. Appointment cards and PHS given to patient. Pain medication given. Pt to gather belongings and wait for ride prior to dismissal.
[2020-04-29] MEDS ORDERED: LITHIUM CARBONATE 150 MG CAP PO SCH (12:00)
--- NOTE | 2020-04-29 12:00 | NUR ---
Pt discharged from unit in stable condition via ambulatory accompanied by OB staff and belongings.
== END 2020-04-29 12:00 ==
LOC: SDC 06:05 → WS 11:08 → SDC 04-29 12:00
PROVIDERS: ATTEND Obstetrics & Gynecology
DX: N80.2 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 of fallopian tube (principal); N92.1 Excessive and frequent menstruation with irregular cycle; N93.9 Abnormal uterine and vaginal bleeding, unspecified; N94.89 Other specified conditions associated with female genital organs and menstrual cycle; N80.3 Endometriosis of pelvic peritoneum; I10 Essential (primary) hypertension; F90.9 Attention-deficit hyperactivity disorder, unspecified type; E66.01 Morbid (severe) obesity due to excess calories; Z68.37 Body mass index [BMI] 37.0-37.9, adult; Z79.899 Other long term (current) drug therapy; Z87.59 Personal history of other complications of pregnancy, childbirth and the puerperium; Z88.2 Allergy status to sulfonamides; Z80.1 Family history of malignant neoplasm of trachea, bronchus and lung; Z83.3 Family history of diabetes mellitus
CPT/HCPCS: 36415; 85025; 86850; 86900; 86901; 87081

== ENCOUNTER 2020-09-20 12:41 | Emergency (ER) | payer MEDICAID ==
[~2020-09-20 12:41] MED LIST changes: +DCS100C PO; +IBUP-844 PO
[2020-09-20 12:45] VITALS: BP 145/87
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
[2020-09-20] MEDS ORDERED: oxyCODONE/APAP 5/325MG (PERCOCET 5) TABLET PO ONE (13:00)
[2020-09-20] MEDS ORDERED: IBUPROFEN 600 MG (MOTRIN) TAB PO ONE (13:00)
--- NOTE | 2020-09-20 13:45 | Diagnostic Imaging Report ---
Indication: Injury to the right elbow and pain. Time of Exam: 1:21 PM Three views of the right elbow were obtained. Alignment is normal. No fracture, dislocation or effusion is detected. IMPRESSION: No acute bony abnormality is detected. Dictated by: Dictated on workstation # [id number]
[2020-09-20] MEDS ORDERED: ACHD5005 PO (13:52)
== END 2020-09-20 13:57 | disposition home or self-care (01) ==
LOC: EDUNIT# 12:41 → ER FS 12:44
DX: S50.01XA Contusion of right elbow, initial encounter (principal); F41.9 Anxiety disorder, unspecified; F31.9 Bipolar disorder, unspecified; G89.29 Other chronic pain; M54.9 Dorsalgia, unspecified; G43.909 Migraine, unspecified, not intractable, without status migrainosus; Z87.891 Personal history of nicotine dependence; Z88.2 Allergy status to sulfonamides; Z79.891 Long term (current) use of opiate analgesic; Z79.1 Long term (current) use of non-steroidal anti-inflammatories (NSAID); Z79.899 Other long term (current) drug therapy; V86.95XA Unspecified occupant of 3- or 4- wheeled all-terrain vehicle (ATV) injured in nontraffic accident, initial encounter
CPT/HCPCS: 73080; 99283; A4565

== ENCOUNTER 2021-06-03 18:26 | Emergency (ER) | payer MEDICAID ==
[~2021-06-03] VITALS: Ht 152.4 cm; Wt 106.5 kg
[~2021-06-03 18:26] MED LIST changes: +ACHD5005 PO; -DCS100C PO; -DIPH50CA PO; +DIPH50CA33 PO; +DOCU-239 PO; -FLUO20CA46; +FLUO20CA48
--- NOTE | 2021-06-03 19:00 | ED Headache ---
General Chief Complaint: Head/Cervical Problems Stated Complaint: RIGHT EYE PAIN Source: patient Exam Limitations: no limitations History of Present Illness Date Seen by Provider: Jun 03, 2021 Time Seen by Provider: 18:55 Initial Comments To ER with right lateral superior eye swelling and pain. She states that she has not had any issues with this for the past 6 years but when she did have it she followed with a "specialist" at the [facility]. She has not seen them in 6 years and cannot see them until September of this year. 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 Last time she was treated with a prednisone taper, methotrexate for 6 days and hydrocodone twice daily for 2 or 3 weeks. She reports that she does get vision changes whenever the upper eyelid swells. She is currently on prednisone following a recent Covid infection. Timing/Duration: 1 week Severity/Quality: moderate Prior Headaches/Recent Trauma: no recent headache/trauma Associated Symptoms: denies symptoms Allergies and Home Medications Allergies Coded Allergies: Sulfa (Sulfonamide Antibiotics) (Verified Allergy, Mild, HIVES, 04/22/20) Patient Home Medication List Home Medication List Reviewed: Yes Acetaminophen (Acetaminophen) 500 Mg Tablet, 1,000 MG PO Q8HR Prescribed by: NAIN AU on 04/28/20 1439 Clonazepam (Klonopin) 0.5 Mg Tablet, 0.5 MG PO BID, (Reported) Entered as Reported by: DAPHNEY GONSALEZ on 04/22/20 1246 Desloratadine/Pseudoephedrine (Clarinex-D 12 Hour Tablet) 1 Each Tbmp.12hr, 1 EACH PO DAILY, (Reported) Entered as Reported by: DAPHNEY GONSALEZ on 04/22/20 1246 Diphenhydramine HCl (Diphenhydramine HCl) 50 Mg Capsule, 100 MG PO HS, (Reported) Entered as Reported by: DAPHNEY GONSALEZ on 04/22/20 1246 Docusate Sodium (Dok) 100 Mg Capsule, 100 MG PO BID Prescribed by: NAIN AU on 04/28/20 1439 Fluoxetine HCl (Prozac) 20 Mg Capsule, 20 MG PO DAILY, (Reported) Entered as Reported by: DAPHNEY GONSALEZ on 04/22/20 1246 Hydrocodone/Acetaminophen (Hydrocodone-Acetamin 5-325 mg) 1 Each Tablet, 1 TAB PO Q6H PRN for PAIN-MODERATE (5-7) Prescribed by: SRIDEVI BENITEZ on 09/20/20 1352 Ibuprofen (Ibu) 600 Mg Tablet, 600 MG PO Q6HR Prescribed by: NAIN AU on 04/28/20 1439 [place] Carbonate ([place] Carbonate) 150 Mg Capsule, 300 MG PO BID, (Reported) Entered as Reported by: DAPHNEY GONSALEZ on 04/22/20 1246 [place] Carbonate ([place] Carbonate) 150 Mg Capsule, 150 MG PO NOON, (Reported) Entered as Reported by: DAPHNEY GONSALEZ on 04/22/20 1246 Multivitamin (Multivitamin) 1 Each Tablet, 1 EACH PO DAILY, (Reported) Entered as Reported by: DAPHNEY GONSALEZ on 04/22/20 1246 Oxycodone Hcl (Oxyir Tablet) 5 Mg Tab, 5 MG PO Q4HR Prescribed by: NAIN AU on 04/28/20 1439 Review of Systems Review of Systems Constitutional: see HPI Eyes: No Symptoms Reported Ears, Nose, Mouth, Throat: no symptoms reported Respiratory: no symptoms reported Cardiovascular: no symptoms reported Genitourinary: no symptoms reported Musculoskeletal: no symptoms reported Skin: no symptoms reported Psychiatric/Neurological: No Symptoms Reported Past Clpfnlu-Lpozkd-Dzfmah Hx Patient Social History Tobacco Use?: No Use of E-Cig and/or Vaping dev: Yes Use of E-Cig and/or Vaping Bruno: Current Everyday User Substance use?: No Alcohol Use?: Yes Alcohol Frequency: Rarely Pt feels they are or have been: No Immunizations Up To Date Tetanus Booster (TDap): Less than 5yrs PED Vaccines UTD: No First/Initial COVID19 Vaccinat: NO Second COVID19 Vaccination Arnoldo: NO Third COVID19 Vaccination Date: NO Seasonal Allergies Seasonal Allergies: Yes Past Medical History Surgery/Hospitalization HX: HX OF LACRIMAL GLAND TUMOR Surgeries: Yes (GASTRIC SLEEVE, ECTOPIC X2, DX LAP X2) Section, Tubal Ligation Respiratory: No Currently Using CPAP: No Currently Using BIPAP: No Cardiac: No Neurological: Yes Headaches /Migraines Reproductive Disorders: Yes (ectopic resulting in left salpingectomy) Female Reproductive Disorders: Menstrual Problems, 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 oz. 86.194136os; 37.35 BMI Method:Stated General Appearance: WD/WN, no apparent distress HEENT: PERRL/EOMI, normal ENT inspection, other (Questionable edema without any erythema over the lacrimal gland lateral superior aspect of the right eye. The globe itself is normal in appearance without conjunctival inflammation of the palpebral or bulbar conjunctive a. Pupils reactive.) Neck: non-tender, full range of motion Respiratory: no respiratory distress, no accessory muscle use Extremities: normal range of motion, non-tender Psychiatric: alert, oriented x 3 Crainal Nerves: normal hearing, normal speech Skin: normal color, warm/dry Departure Communication (Admissions) She has had a hysterectomy done here so is not of concern. Impression Primary Impression: Right eyelid tenderness Disposition: 01 HOME, SELF-CARE Condition: Stable Departure-Patient Inst. Decision time for Depature: 18:59 Referrals: CRUZ RICE APRN (PCP/Family) Primary Care Physician Patient Instructions: NO INSTRUCTIONS GIVEN Add. Discharge Instructions: 1. You need to follow-up with primary care to get additional dosages of the medications provided. Return to ER for any concerns. Call your primary care doc tomorrow. All discharge instructions reviewed with patient and/or family. Voiced understanding. Scripts Hydrocodone/Acetaminophen (Hydrocodone-Acetamin 5-325 mg) 1 Each Tablet 1 TAB PO BID PRN for PAIN-MODERATE (5-7), #10 TAB Prov: EFRA NORTON APRN 06/03/21 Methotrexate Sodium (Methotrexate) 2.5 Mg Tablet 10 MG PO ONCE, #4 TAB Prov: EFRA NORTON APRN 06/03/21 EFRA NORTON APRN Jun 03, 2021 19:00
[2021-06-03] MEDS ORDERED: METH2.5T PO (19:09)
[2021-06-03] MEDS ORDERED: ACHD5005 PO (19:09)
[2021-06-03 19:16] VITALS: BP 155/87
== END 2021-06-03 19:25 | disposition home or self-care (01) ==
LOC: EDUNIT# 18:26 → ER 18:29
DX: H01.9 Unspecified inflammation of eyelid (principal); G89.29 Other chronic pain; M54.9 Dorsalgia, unspecified; F41.9 Anxiety disorder, unspecified; F17.290 Nicotine dependence, other tobacco product, uncomplicated; Z79.891 Long term (current) use of opiate analgesic; Z79.899 Other long term (current) drug therapy
CPT/HCPCS: 99283

== ENCOUNTER 2022-01-08 10:56 | Observation (INO) | payer MEDICAID ==
[~2022-01-08] VITALS: Ht 152.4 cm; Wt 117.1 kg
[~2022-01-08 10:56] MED LIST changes: +METH2.5T PO
--- NOTE | 2022-01-08 11:02 | ED General ---
General Chief Complaint: Glucose Problems Stated Complaint: ELEV GLUC History of Present Illness Date Seen by Provider: Jan 08, 2022 Time Seen by Provider: 11:02 Initial Comments 31-year-old female with PMH of Raynaud's syndrome/hyperlipidemia/smoker ([place]), is here with complaints of having a blood sugar of 227 at home and then took her father's 2-year medication of glimepiride 4 mg, 1 tablet. After taking a tablet patient started feeling shaky, lightheaded, unwell. Patient has not been officially diagnosed with diabetes but she has a very strong family history of diabetes in both her mother and father. Patient is a lso obese. Patient has been noticing that she has been having polydipsia, polyuria for the past couple of weeks and that is why she decided to check her blood sugar level at home today. Denies dysuria, fever, abdominal pain, shortness of breath, cough, sore throat or any other symptoms. Allergies and Home Medications Allergies Coded Allergies: Sulfa (Sulfonamide Antibiotics) (Verified Allergy, Mild, HIVES, 04/22/20) Patient Home Medication List Home Medication List Reviewed: Yes Acetaminophen (Acetaminophen) 500 Mg Tablet, 1,000 MG PO Q8HR Prescribed by: NAIN AU on 04/28/20 1439 Clonazepam (Klonopin) 0.5 Mg Tablet, 0.5 MG PO BID, (Reported) Entered as Reported by: DAPHNEY GONSALEZ on 04/22/20 1246 Desloratadine/Pseudoephedrine (Clarinex-D 12 Hour Tablet) 1 Each Tbmp.12hr, 1 EACH PO DAILY, (Reported) Entered as Reported by: DAPHNEY GONSALEZ on 04/22/20 1246 Diphenhydramine HCl (Diphenhydramine HCl) 50 Mg Capsule, 100 MG PO HS, (Reported) Entered as Reported by: DAPHNEY GONSALEZ on 04/22/20 1246 Docusate Sodium (Dok) 100 Mg Capsule, 100 MG PO BID Prescribed by: NAIN AU on 04/28/20 1439 Fluoxetine HCl (Prozac) 20 Mg Capsule, 20 MG PO DAILY, (Reported) Entered as Reported by: DAPHNEY GONSALEZ on 04/22/20 1246 Hydrocodone/Acetaminophen (Hydrocodone-Acetamin 5-325 mg) 1 Each Tablet, 1 TAB PO Q6H PRN for PAIN-MODERATE (5-7) Prescribed by: SRIDEVI BENITEZ on 09/20/20 1352 Hydrocodone/Acetaminophen (Hydrocodone-Acetamin 5-325 mg) 1 Each Tablet, 1 TAB PO BID PRN for PAIN-MODERATE (5-7) Prescribed by: EFRA NORTON on 06/03/21 190 Ibuprofen (Ibu) 600 Mg Tablet, 600 MG PO Q6HR Prescribed by: NAIN AU on 04/28/20 143 [place] Carbonate ([place] Carbonate) 150 Mg Capsule, 300 MG PO BID, (Reported) Entered as Reported by: DAPHNEY GONSALEZ on 04/22/20 124 [place] Carbonate ([place] Carbonate) 150 Mg Capsule, 150 MG PO NOON, (Reported) Entered as Reported by: DAPHNEY GONSALEZ on 04/22/20 124 Methotrexate Sodium (Methotrexate) 2.5 Mg Tablet, 10 MG PO ONCE Prescribed by: EFRA NORTON on 06/03/211908 Multivitamin (Multivitamin) 1 Each Tablet, 1 EACH PO DAILY, (Reported) Entered as Reported by: DAPHNEY GONSALEZ on 04/22/20 124 Oxycodone Hcl (Oxyir Tablet) 5 Mg Tab, 5 MG PO Q4HR Prescribed by: NAIN AU on 04/28/20 143 Review of Systems Review of Systems Constitutional: dizziness EENTM: no symptoms reported Respiratory: no symptoms reported Cardiovascular: no symptoms reported Gastrointestinal: no symptoms reported Genitourinary: no symptoms reported Musculoskeletal: no symptoms reported Skin: no symptoms reported Psychiatric/Neurological: No Symptoms Reported Hematologic/Lymphatic: No Symptoms Reported Immunological/Allergic: no symptoms reported Past Ewuttdu-Xheguv-Lvoxor Hx Immunizations Up To Date Tetanus Booster (TDap): Less than 5yrs PED Vaccines UTD: No First/Initial COVID19 Vaccinat: NO Second COVID19 Vaccination Arnoldo: NO Third COVID19 Vaccination Date: NO Seasonal Allergies Seasonal Allergies: Yes Past Medical History Surgery/Hospitalization HX: HX OF LACRIMAL GLAND TUMOR Surgeries: Yes (GASTRIC SLEEVE, ECTOPIC X2, DX LAP X2) Section, Tubal Ligation Respiratory: No Currently Using CPAP: No Currently Using BIPAP: No Cardiac: No Neurological: Yes Headaches /Migraines Reproductive Disorders: Yes (ectopic resulting in left salpingectomy) Female Reproductive Disorders: Menstrual Problems, 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 oz. 86.186074kh; 45.00 BMI Method:Stated General Appearance: Mild Distress, Obese HEENT: PERRL/EOMI, Normal ENT Inspection Neck: Full Range of Motion Respiratory: Chest Non Tender, Lungs Clear, Normal Breath Sounds Cardiovascular: Regular Rate, Rhythm, No Edema Gastrointestinal: Normal Bowel Sounds, Non Tender, Soft Back: Normal Inspection, No CVA Tenderness Extremity: Normal Range of Motion Neurologic/Psychiatric: Alert, Oriented x3, No Motor/Sensory Deficits Skin: Normal Color, Warm/Dry Progress/Results/Core Measures Suspected Sepsis SIRS Temperature: Pulse: Respiratory Rate: Laboratory Tests 01/08/22 11:50: White Blood Count 16.6H Blood Pressure / Mean: Laboratory Tests 01/08/22 11:50: Creatinine 0.77, Platelet Count 262, Total Bilirubin < 0.2 Results/Orders Lab Results Laboratory Tests Test 01/08/22 11:00 01/08/22 11:03 01/08/22 11:32 01/08/22 11:48 Range/Units Urine Color YELLOW Urine Clarity CLEAR Urine pH 6.0 5-9 Urine Specific [place] <=1.005 1.016-1.022 Urine Protein NEGATIVE NEGATIVE Urine Glucose (UA) NEGATIVE NEGATIVE Urine Ketones NEGATIVE NEGATIVE Urine Nitrite NEGATIVE NEGATIVE Urine Bilirubin NEGATIVE NEGATIVE Urine Urobilinogen 0.2 < = 1.0 MG/DL Urine Leukocyte Esterase NEGATIVE NEGATIVE Urine RBC (Auto) NEGATIVE NEGATIVE Urine RBC RARE /HPF Urine WBC NONE /HPF Urine Squamous Epithelial Cells 5-10 /HPF Urine Crystals NONE /LPF Urine Bacteria TRACE /HPF Urine Casts NONE /LPF Urine Mucus NEGATIVE /LPF Urine Culture Indicated NO Urine Opiates Screen NEGATIVE NEGATIVE Urine Oxycodone Screen NEGATIVE NEGATIVE Urine Methadone Screen NEGATIVE NEGATIVE Urine Propoxyphene Screen NEGATIVE NEGATIVE Urine Barbiturates Screen NEGATIVE NEGATIVE Ur Tricyclic Antidepressants Screen NEGATIVE NEGATIVE Urine Phencyclidine Screen NEGATIVE NEGATIVE Urine Amphetamines Screen NEGATIVE NEGATIVE Urine Methamphetamines Screen NEGATIVE NEGATIVE Urine Benzodiazepines Screen POSITIVE H NEGATIVE Urine Cocaine Screen NEGATIVE NEGATIVE Urine Cannabinoids Screen POSITIVE H NEGATIVE Glucometer 70 62 L 227 H 70-110 MG/DL Test 01/08/22 11:50 01/08/22 12:39 01/08/22 13:01 01/08/22 13:33 Range/Units White Blood Count 16.6 H 4.3-11.0 10^3/uL Red Blood Count 3.80 3.80-5.11 10^6/uL Hemoglobin 10.1 L 11.5-16.0 g/dL Hematocrit 31 L 35-52 % Mean Corpuscular Volume 82 80-99 fL Mean Corpuscular Hemoglobin 27 25-34 pg Mean Corpuscular Hemoglobin Concent 32 32-36 g/dL Red Cell Distribution Width 16.0 H 10.0-14.5 % Platelet Count 262 130-400 10^3/uL Mean Platelet Volume 9.5 9.0-12.2 fL Immature Granulocyte % (Auto) 1 % Neutrophils (%) (Auto) 61 42-75 % Lymphocytes (%) (Auto) 34 12-44 % Monocytes (%) (Auto) 3 0-12 % Eosinophils (%) (Auto) 1 0-10 % Basophils (%) (Auto) 0 0-10 % Neutrophils # (Auto) 10.1 H 1.8-7.8 10^3/uL Lymphocytes # (Auto) 5.7 H 1.0-4.0 10^3/uL Monocytes # (Auto) 0.5 0.0-1.0 10^3/uL Eosinophils # (Auto) 0.1 0.0-0.3 10^3/uL Basophils # (Auto) 0.0 0.0-0.1 10^3/uL Immature Granulocyte # (Auto) 0.2 H 0.0-0.1 10^3/uL Neutrophils % (Manual) 68 % Lymphocytes % (Manual) 29 % Monocytes % (Manual) 1 % Eosinophils % (Manual) 2 % Sodium Level 136 135-145 MMOL/L Potassium Level 3.7 3.6-5.0 MMOL/L Chloride Level 105 98-107 MMOL/L Carbon Dioxide Level 22 21-32 MMOL/L Anion Gap 9 5-14 MMOL/L Blood Urea Nitrogen 11 7-18 MG/DL Creatinine 0.77 0.60-1.30 MG/DL Estimat Glomerular Filtration Rate 106 BUN/Creatinine Ratio 14 Glucose Level 227 H 70-105 MG/DL Calcium Level 8.3 L 8.5-10.1 MG/DL Corrected Calcium 8.7 8.5-10.1 MG/DL Magnesium Level 1.9 1.6-2.4 MG/DL Total Bilirubin < 0.2 0.1-1.0 MG/DL Aspartate Amino Transf (AST/SGOT) 15 5-34 U/L Alanine Aminotransferase (ALT/SGPT) 16 0-55 U/L Alkaline Phosphatase 57 40-136 U/L Total Protein 6.1 L 6.4-8.2 GM/DL Albumin 3.5 3.2-4.5 GM/DL Glucometer 252 H 61 L 151 H 70-110 MG/DL My Orders Orders - MARAL SORIANO MD Ua Culture If Indicated (01/08/22 11:06) Cbc With Automated Diff (01/08/22 11:27) Comprehensive Metabolic Panel (01/08/22 11:27) Magnesium (01/08/22 11:27) Drug Screen Stat (Urine) (01/08/22 11:27) Ed Iv/Invasive Line Start (01/08/22 11:28) D5 Ns 1000 Ml Iv Solution (Dextrose 5%/0 (01/08/22 11:30) Ed Iv/Invasive Line Start (01/08/22 11:52) Ns Iv 1000 Ml (Sodium Chloride 0.9%) (01/08/22 11:52) Manual Differential (01/08/22 11:50) Chest 1 View Ap/Pa Only (01/08/22 12:08) D50w (Emergency) Syringe (Dextrose 50% 5 (01/08/22 13:30) Medications Given in ED Current Medications Medications Dose Ordered Sig/Ivonne Route Start Time Stop Time Status Last Admin Dose Admin Dextrose/Sodium Chloride 1,000 ml @ 0 mls/hr Q0M ONCE IV 01/08/22 11:30 01/08/22 11:54 DC 01/08/22 11:40 1,000 MLS/HR Vital Signs/I&O Capillary Refill : Progress Note : Progress Note 1. FLUCTUATING HYPERGLYCEMIA & HYPOGLYCEMIA DUE TO GLIMEPIRIDE INGESTION: - FS is 60 on arrival, but 227 at home. After giving D5 and denies blood sugar went into the 200s then again dropped an hour later, D5 NS continued with blood sugar rise into 200s and then dropped again to 70. When blood sugar drops patient feels dizzy and unwell and shaky. -Patient took her father's diabetic medication which has been for 2 years. She took 1 tablet of 4 mg of glimepiride -Patient has not been diagnosed with diabetes officially. -Will admit to observation unit for monitoring as glimepiride only leaves the system in 24 hours -Discussed with hospitalist, Dr. Cooper, and will admit to observation unit 2. ELEVATED WBC, UNSPECIFIED SOURCE - WBC is 16.6 with a left shift - UA is normal - CXR unremarkable - Afebrile, AOx3, normal mentation, negative ketones in the urine, vitals stable in ER - Would benefit to repeat CBC once pt is admitted to obs. 3. MARIJUANA ABUSE: - UDS is positive for marijuana and benzos Diagnostic Imaging Diagonstic Imaging: Xray Plain Films/CT/US/NM/MRI: chest Comments no acute findings Departure Communication (Admissions) Time/Spoke to Admitting Phy: 13:[address] Ray accepted to obs Impression Primary Impression: Drug-induced hypoglycemia Additional Impressions: Hyperglycemia, unspecified Marijuana abuse Leukocytosis, unspecified Disposition: 30 STILL A PATIENT Condition: Stable Admissions Decision to Admit Reason: Admit from ER (General) Decision to Admit/Date: Jan 08, 2022 Time/Decision to Admit Time: 13:50 Transfer Method of Transfer: EMS Departure-Patient Inst. Referrals: [facility] (PCP/Family) Primary Care Physician MARAL SORIANO MD Jan 08, 2022 11:02
[2022-01-08 11:10] LABS: BILIRUBIN,URINE NEGATIVE (NEGATIVE); CLARITY,URINE CLEAR; COLOR,URINE YELLOW; GLUCOSE, URINE (UA) NEGATIVE (NEGATIVE); KETONES,URINE NEGATIVE (NEGATIVE); LEUKOCYTE ESTERASE ,URINE NEGATIVE (NEGATIVE); NITRITE,URINE NEGATIVE (NEGATIVE); PROTEIN,URINE NEGATIVE (NEGATIVE)
[2022-01-08 11:14] LABS: BACTERIA,URINE TRACE /HPF; RBC,URINE RARE /HPF
[2022-01-08] MEDS ORDERED: D5 NS 1000 ML IV SOLUTION 1,000 ML IV ONE ×2 (11:30→14:24)
[2022-01-08 11:42] LABS: AMPHETAMINE SCREEN, URINE NEGATIVE (NEGATIVE); BARBITURATE SCREEN URINE NEGATIVE (NEGATIVE); BENZODIAZEPINES SCREEN URINE POSITIVE (NEGATIVE); CANNABINOID SCREEN, URINE POSITIVE (NEGATIVE); COCAINE SCREEN URINE NEGATIVE (NEGATIVE); METHADONE STAT NEGATIVE (NEGATIVE); OPIATE SCREEN URINE NEGATIVE (NEGATIVE); OXYCODONE STAT NEGATIVE (NEGATIVE); PROPOXYPHENE STAT NEGATIVE (NEGATIVE); TRICYCLIC ANTIDEPRESSANTS SCRE NEGATIVE (NEGATIVE)
[2022-01-08] MEDS ORDERED: NS IV 1000 ML 1,000 ML IV STA (11:52)
[2022-01-08 11:53] LABS: BASOPHILS % (AUTO) 0 % (0-10); EOSINOPHILS # (AUTO) 0.1 10^3/uL (0.0-0.3); EOSINOPHILS % (AUTO) 1 % (0-10); HEMATOCRIT 31 % (35-52); HEMOGLOBIN 10.1 g/dL (11.5-16.0); LYMPHOCYTES # (AUTO) 5.7 10^3/uL (1.0-4.0); LYMPHOCYTES % (AUTO) 34 % (12-44); MEAN CORPUSCULAR HEMOGLOBIN 27 pg (25-34); MEAN CORPUSCULAR HGB CONC 32 g/dL (32-36); MEAN CORPUSCULAR VOLUME 82 fL (80-99); MEAN PLATELET VOLUME 9.5 fL (9.0-12.2); MONOCYTES # (AUTO) 0.5 10^3/uL (0.0-1.0); MONOCYTES % (AUTO) 3 % (0-12); NEUTROPHILS # (AUTO) 10.1 10^3/uL (1.8-7.8); NEUTROPHILS % (AUTO) 61 % (42-75); PLATELET COUNT 262 10^3/uL (130-400); WHITE BLOOD COUNT 16.6 10^3/uL (4.3-11.0)
[2022-01-08 12:12] LABS: ALANINE AMINOTRANSFERASE 16 U/L (0-55); ALBUMIN 3.5 GM/DL (3.2-4.5); ALKALINE PHOSPHATASE 57 U/L (40-136); BILIRUBIN,TOTAL < 0.2 MG/DL (0.1-1.0); BUN/CREATININE RATIO 14; CALCIUM 8.3 MG/DL (8.5-10.1); CARBON DIOXIDE 22 MMOL/L (21-32); CHLORIDE 105 MMOL/L (98-107); CREATININE SERUM 0.77 MG/DL (0.60-1.30); GFR ESTIMATED 106; GLUCOSE 227 MG/DL (70-105); MAGNESIUM 1.9 MG/DL (1.6-2.4); POTASSIUM 3.7 MMOL/L (3.6-5.0); SODIUM 136 MMOL/L (135-145); TOTAL PROTEIN 6.1 GM/DL (6.4-8.2)
[2022-01-08 12:18] LABS: EOSINOPHILS % (MANUAL) 2 %; LYMPHOCYTES % (MANUAL) 29 %; MONOCYTES % (MANUAL) 1 %; NEUTROPHILS % (MANUAL) 68 %
--- NOTE | 2022-01-08 13:07 | Diagnostic Imaging Report ---
EXAMINATION: Chest, one view. HISTORY: Elevated white blood cell count. Hypoglycemia. COMPARISON: 12/20/2019. FINDINGS: The lung volumes are normal. No focal consolidation is seen. No large pleural effusion or pneumothorax is seen. The cardiomediastinal silhouette is normal in size and contour. No acute osseous abnormality is seen. IMPRESSION: 1. No acute pleural-parenchymal process. Dictated by: Dictated on workstation # [id number]
[2022-01-08] MEDS ORDERED: DEXTROSE 50% 50 ML (IMS) SYR IV ONE (13:30)
[2022-01-08] MEDS ORDERED: diphenhydrAMINE 25 MG TAB (BENADRYL) PO PRN (16:30)
[2022-01-08] MEDS ORDERED: ONDANSETRON 4 MG/2 ML (SDV) Z0FRAN IV PRN (16:30)
[2022-01-08] MEDS ORDERED: ACETAMINOPHEN 325 MG TABLET PO PRN (16:30)
[2022-01-08] MEDS ORDERED: morphine INJ 4 MG/ML 1 ML (VIAL/SYRINGE) IV PRN (16:30)
[2022-01-08] MEDS ORDERED: BISACODYL 10 MG SUPP (DULCOLAX) PR PRN (16:30)
[2022-01-08] MEDS ORDERED: NALOXONE 0.4 MG/ML 1 ML (NARCAN) VIAL IV PRN (16:30)
[2022-01-08] MEDS ORDERED: ONDANSETRON 4 MG (ZOFRAN) ORAL DISSOLVE TAB PO PRN (16:30)
[2022-01-08] MEDS ORDERED: MELATONIN 3 MG TABLET PO PRN (16:30)
[2022-01-08] MEDS ORDERED: ANTACID SUSP 30 ML UDC (MYLANTA) PO PRN (16:30)
[2022-01-08] MEDS ORDERED: diphenhydrAMINE 50 MG/ML INJ (BENADRYL) IVP PRN (16:30)
[2022-01-08] MEDS ORDERED: polyethylene glycoL POWDER 17 GM (MIRALAX) PACK PO PRN (16:30)
[2022-01-08 16:48] VITALS: BP 128/69
[2022-01-08] MEDS: ENOXAPARIN 60 MG/0.6 ML (LOVENOX) SYR SC SCH (16:49)
[2022-01-08] MEDS: DEXTROSE 10% IV SOLUTION 250 ML IV SCH (16:54)
[2022-01-08] MEDS ORDERED: RT-ALBUTEROL SULF 2.5 MG/3 ML PRE-MIX VIAL INH PRN (17:00)
[2022-01-08 19:22] VITALS: BP 107/70
[2022-01-08] MEDS ORDERED: NICOTINE 21 MG (NICODERM) PATCH TD SCH (20:00)
[2022-01-08] MEDS ORDERED: NICOTINE 21 MG (NICODERM) PATCH ONE (20:20)
[2022-01-08] MEDS: DOCUSATE SODIUM 100 MG (COLACE) CAP PO SCH (20:31)
[2022-01-08] MEDS ORDERED: KETOROLAC 30 MG/ML VIAL IVP ONE (20:45)
[2022-01-08] MEDS ORDERED: KETOROLAC 30 MG/ML VIAL IVP PRN (20:45)
[2022-01-09] VITALS: BP 126/79
[2022-01-09 03:35] VITALS: BP 112/67
[2022-01-09] MEDS ORDERED: LURA40TA2 PO (03:46)
[2022-01-09] MEDS ORDERED: HYDR50TA76 PO (03:46)
[2022-01-09] MEDS ORDERED: FLUT16SP22 (03:46)
[2022-01-09] MEDS ORDERED: MIRA25TA PO (03:47)
[2022-01-09] MEDS: ENOXAPARIN 60 MG/0.6 ML (LOVENOX) SYR SC SCH (04:20)
[2022-01-09 05:45] LABS: HEMATOCRIT 32 % (35-52); HEMOGLOBIN 10.4 g/dL (11.5-16.0); MEAN CORPUSCULAR HEMOGLOBIN 26 pg (25-34); MEAN CORPUSCULAR HGB CONC 32 g/dL (32-36); MEAN CORPUSCULAR VOLUME 82 fL (80-99); MEAN PLATELET VOLUME 9.4 fL (9.0-12.2); PLATELET COUNT 275 10^3/uL (130-400); WHITE BLOOD COUNT 13.4 10^3/uL (4.3-11.0)
[2022-01-09] MEDS: DEXTROSE 10% IV SOLUTION 250 ML IV SCH (06:00)
[2022-01-09 06:03] LABS: ALBUMIN 3.4 GM/DL (3.2-4.5); POTASSIUM 3.8 MMOL/L (3.6-5.0)
[2022-01-09 06:04] LABS: CALCIUM 8.5 MG/DL (8.5-10.1)
[2022-01-09 06:05] LABS: TOTAL PROTEIN 6.2 GM/DL (6.4-8.2)
[2022-01-09 06:07] LABS: BILIRUBIN,TOTAL 0.3 MG/DL (0.1-1.0)
[2022-01-09 06:09] LABS: CREATININE SERUM 0.82 MG/DL (0.60-1.30)
--- NOTE | 2022-01-09 06:41 | Short Stay Summary-Hospitalist ---
History of Present Illness HPI/Chief Complaint Chief complaint: Hypoglycemia after taking Amaryl 4 mg of father's prescription HPI: This is a 31-year-old female who has a past medical history of lacrimal tumor maintained on methotrexate, obesity, hypertension who presents to [place] ER after hypoglycemia following taking her father's prescription of Amaryl 4mg because she reported that her blood sugar was in the 300 range. Patient has not had a hemoglobin A1c recently. She was maintained on D10 drip and Accu- Cheks every hour and it has been maintained in good range with no hypoglycemia after eating lunch. Source: patient, family, RN/MD Exam Limitations: no limitations Date Seen 01/09/22 Time Seen by a Provider: 11:00 Attending Physician [facility] PCP Admitting Physician: Lelo Ray DO Attending Physician: Lelo Ray DO Referring Physician Date of Admission Jan 08, 2022 at 16:14 Home Medications & Allergies Home Medications Reviewed patient Home Medication Reconciliation performed by pharmacy medication reconciliations biotechnician and/or nursing. Patients Allergies have been reviewed. Allergies Allergies Coded Allergies Sulfa (Sulfonamide Antibiotics) (Verified Allergy, Mild, HIVES, 04/22/20) Past Hgyrbbh-Yzeiwu-Sedewj Hx Patient Social History Marrital Status: Employed/Student: unemployed Tobacco Use?: No Smoking Status: Never a Smoker Use of E-Cig and/or Vaping dev: Yes E-Cig or Vaping type used: Nicotine Substance use?: No Alcohol Use?: Yes Alcohol type: Wine Alcohol Frequency: Couple times a week Pt feels they are or have been: No Immunizations Up To Date First/Initial COVID19 Vaccinat: NO Second COVID19 Vaccination Arnoldo: NO Hepatitis A: No Hepatitis B: No PED Vaccines UTD: No Seasonal Allergies Seasonal Allergies: Yes Current Status status: No status: No Advance Directives: No Communicates: Verbally Primary Language: Portuguese Preferred Spoken Language: Portuguese Is interpretation needed?: No Past Medical History Surgeries: Section, Tubal Ligation Currently Using CPAP: No Currently Using BIPAP: No 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 oz. 86.777647xz; 50.41 BMI Method:Stated General Appearance: No Apparent Distress, WD/WN, Chronically ill, Obese HEENT: PERRL/EOMI, Normal ENT Inspection Neck: Full Range of Motion Respiratory: Chest Non Tender, Lungs Clear, Normal Breath Sounds Cardiovascular: Regular Rate, Rhythm, No Edema Gastrointestinal: Normal Bowel Sounds, Non Tender, Soft Back: Normal Inspection, No CVA Tenderness Extremity: Normal Range of Motion Neurologic/Psychiatric: Alert, Oriented x3, No Motor/Sensory Deficits Skin: Normal Color, Warm/Dry Results Results/Procedures Labs Laboratory Tests 01/08/22 11:50 01/09/22 05:09 Patient resulted labs reviewed. Short Stay Diagnosis Discharge Diagnosis-Short Stay Admission Diagnosis Hypoglycemia due to sulfonylurea of her father's prescription Final Discharge Diagnosis Hypoglycemia due to sulfonylurea of her father's prescription Conclusion Plan Discharge home LELO RAY DO Jan 09, 2022 06:41
[2022-01-09 07:51] VITALS: BP 115/72
[2022-01-09] MEDS: DOCUSATE SODIUM 100 MG (COLACE) CAP PO SCH (08:50)
[2022-01-09] MEDS ORDERED: METHOTREXATE 2.5 MG TAB PO SCH (12:00)
[2022-01-09 12:11] VITALS: BP 100/55
[2022-01-09] MEDS ORDERED: hydrOXYzine (VISTARIL/ATARAX) 25 MG capsule/tablet PO PRN (12:15)
[2022-01-09] MEDS ORDERED: PSEUDOEPHEDRINE HCL 30 MG (SUDAFED) TAB PO SCH (13:00)
[2022-01-09] MEDS ORDERED: diphenhydrAMINE 25 MG TAB (BENADRYL) PO SCH (21:00)
[2022-01-10] MEDS ORDERED: MULTIVIT W/MINERALS TAB (THERAGRAN M) PO SCH (07:00)
[2022-01-10] MEDS ORDERED: MIRABEGRON 25 MG TAB (MYRBETRIQ) PO SCH (08:00)
[2022-01-10] MEDS ORDERED: NON-FORMULARY MEDICATION 1 EA EA (Lurasidone HCl (Latuda) 40 MG) PO SCH (09:00)
[2022-01-10] MEDS ORDERED: FLUTICASONE NASAL SPRAY (FLONASE) 16 GM BTL NS SCH (09:00)
[2022-01-10] MEDS ORDERED: FLUoxetine HCL 20 MG (PROzac) CAP PO SCH (09:00)
[2022-01-10] MEDS ORDERED: LORATADINE (CLARITIN) 10 MG TAB PO SCH (09:00)
== END 2022-01-09 15:06 | disposition home or self-care (01) ==
LOC: EDUNIT# 10:56 → ER FS 10:58 → 4TH 16:14 → UNDOADMOB 16:14 → 4TH 18:02 → UNDODISOB 01-09 15:28
PROVIDERS: ADMIT Internal Medicine; ATTEND Internal Medicine
DX: E11.649 Type 2 diabetes mellitus with hypoglycemia without coma (principal); E66.9 Obesity, unspecified; Z68.43 Body mass index [BMI] 50.0-59.9, adult; D72.829 Elevated white blood cell count, unspecified; F12.19 Cannabis abuse with unspecified cannabis-induced disorder
CPT/HCPCS: 36415; 71045; 80053 ×2; 80306; 81000; 82947 ×2; 83605; 83735; 84703; 85007; 85027 ×2; 96360; 96361; 96366 ×2; 96372 ×2; 96375 ×2; 96376; 99284; G0378

== ENCOUNTER 2023-02-07 16:22 | Emergency (ER) | payer SELFPAY ==
[~2023-02-07] VITALS: Ht 152 cm; Wt 95.0 kg
[~2023-02-07 16:22] MED LIST changes: +DESL1TBM PO; -DESL1TBM2 PO; +FLUT16SP22; +HYDR50TA76 PO; +LURA40TA2 PO; +MIRA25TA PO
[2023-02-07 16:33] VITALS: BP 146/87
[2023-02-07] MEDS ORDERED: CLIN-144 PO (16:48)
--- NOTE | 2023-02-07 16:48 | ED EENT ---
History of Present Illness General Chief Complaint: Dental Problems/Pain Stated Complaint: R SIDE FACIAL SWELLING/TOOTH PAIN FOR 6 WEEKS Nursing Triage Note: Patient has presented to ER with cc of 2 months of dental pain. She has presented and told ER staff that she is hear to get IV antibiotics for her tooth. She reports that she got a new amoxil prescriptions today - this is 3rd dose for her tooth and it has not helped. Patient reports that she is on a call list to have her tooth pulled. History of Present Illness Date Seen by Provider: Feb 07, 2023 Time Seen by Provider: 16:43 Initial Comments 32-year-old female presents with dental pain on her back teeth on her right side both upper and lower. That she has been having 2 months of dental pain. She reports that she was seen in her dental office today and that her dental check told her to come to the ER to get IV antibiotics. She has already been prescribed a course of amoxicillin, cefdinir and they represcribed another dose of amoxicillin today. She is on an emergency call is to have her tooth pulled when they have an availability. Allergies and Home Medications Allergies Coded Allergies: Sulfa (Sulfonamide Antibiotics) (Verified Allergy, Mild, HIVES, 04/22/20) Patient Home Medication List Home Medication List Reviewed: Yes Desloratadine/Pseudoephedrine (Clarinex-D 12 Hour Tablet) 1 Each Tbmp.12hr, 1 EACH PO DAILY, (Reported) Entered as Reported by: DAPHNEY GONSALEZ on 04/22/20 1246 Diphenhydramine HCl (Diphenhydramine HCl) 50 Mg Capsule, 100 MG PO HS, (Reported) Entered as Reported by: DAPHNEY GONSALEZ on 04/22/20 1246 Fluoxetine HCl (Prozac) 20 Mg Capsule, 40 MG PO DAILY, (Reported) Entered as Reported by: DAPHNEY GONSALEZ on 04/22/20 1246 Fluticasone Propionate (Fluticasone Propionate) 50 Mcg/Actuation Gile.susp, 50 MCG NA DAILY, (Reported) Entered as Reported by: RICCARDO BIGGS on 01/09/22 0346 Hydroxyzine HCl (Hydroxyzine HCl) 50 Mg Tablet, 50 MG PO DAILY PRN for ANXIETY, (Reported) Entered as Reported by: RICCARDO BIGGS on 01/09/22 034 Lurasidone HCl (Latuda) 40 Mg Tablet, 40 MG PO DAILY, (Reported) Entered as Reported by: RICCARDO BIGGS on 01/09/22 034 Methotrexate Sodium (Methotrexate) 2.5 Mg Tablet, 10 MG PO ONCE Prescribed by: EFRA NORTON on 06/03/211908 Mirabegron (Myrbetriq) 25 Mg Tab.er.24h, 25 MG PO DAILY, (Reported) Entered as Reported by: RICCARDO BIGGS on 01/09/22346 Multivitamin (Multivitamin) 1 Each Tablet, 1 EACH PO DAILY, (Reported) Entered as Reported by: DAPHNEY GONSALEZ on 04/22/20 1246 Review of Systems Review of Systems Constitutional: no symptoms reported Ears: No Symptoms Reported Nose: no symptoms reported Mouth: see HPI Throat: no symptoms reported Respiratory: no symptoms reported Cardiovascular: no symptoms reported Past Pbxecsy-Uwvtzn-Edjehn Hx Patient Social History Tobacco Use?: No Use of E-Cig and/or Vaping dev: No Substance use?: No Alcohol Use?: No Immunizations Up To Date Tetanus Booster (TDap): Less than 5yrs PED Vaccines UTD: No First/Initial COVID19 Vaccinat: NO Second COVID19 Vaccination Arnoldo: NO Third COVID19 Vaccination Date: NO Seasonal Allergies Seasonal Allergies: Yes Past Medical History Surgery/Hospitalization HX: HX OF LACRIMAL GLAND TUMOR Surgeries: Yes (GASTRIC SLEEVE, ECTOPIC X2, DX LAP X2) Section, Tubal Ligation Respiratory: No Currently Using CPAP: No Currently Using BIPAP: No Cardiac: No Neurological: Yes Headaches /Migraines Reproductive Disorders: Yes (ectopic resulting in left salpingectomy) Female Reproductive Disorders: Menstrual Problems, 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 Sexually Transmitted Disease: No HIV/AIDS: No Genitourinary: No Gastrointestinal: Yes Gastroesophageal Reflux Musculoskeletal: Yes Chronic Back Pain Endocrine: No HEENT: Yes (LACRIMAL GLAND TUMOR R EYE, GLASSES) Cancer: No Psychosocial: Yes (OCD) ADD/ADHD, Anxiety, Bipolar Integumentary: No Blood Disorders: Yes (ANEMIA) Adverse Reaction/Blood Tranf: No (N/A) Family Medical History No Pertinent Family Hx Physical Exam Vital Signs Vital Signs - First Documented 02/07/23 16:33 Temp 37.0 Pulse 75 Resp 16 B/P (MAP) 146/87 (106) Pulse Ox 98 O2 Delivery Room Air Height, Weight, BMI Height: 5'0" Weight: 190lbs. oz. 86.044650nd; 41.00 BMI Method:Stated General Appearance: WD/WN, no apparent distress Mouth/Throat: dental tenderness, other (No abscess or gum swelling noted) Cardiovascular: normal peripheral pulses, regular rate, rhythm Respiratory: lungs clear, normal breath sounds Gastrointestinal: non tender, soft Neurologic/Psychiatric: alert, normal mood/affect, oriented x 3 Skin: normal color, warm/dry Progress/Results/Core Measures Results/Orders Vital Signs/I&O 02/07/23 16:33 Temp 37.0 Pulse 75 Resp 16 B/P (MAP) 146/87 (106) Pulse Ox 98 O2 Delivery Room Air Blood Pressure Mean: 106 Progress Progress Note : Progress Note I discussed with patient that I would be more than happy to give her a shot of Rocephin or IV Rocephin however that study showed that 1 dose of antibiotics and that since on their own do not show significant efficacy. After discussion patient decided she would decline a one-time dose of an IV/IM antibiotic. I did discuss with her since she is already been on amoxicillin and cefdinir that I will give her a prescription for clinda as it is a different type of antibiotic. She should follow-up with her dentist as soon as she is able to get her tooth pulled. She is stable and discharged home. Departure Impression Primary Impression: Infected dental caries Disposition: 01 HOME, SELF-CARE Condition: Stable Departure-Patient Inst. Referrals: [facility] (PCP/Family) Primary Care Physician Patient Instructions: Dental Pain, Tooth Abscess ED Scripts Clindamycin HCl (Clindamycin HCl) 300 Mg Capsule 300 MG PO TID, #30 CAP Prov: VANITA TOURE DO 02/07/23 VANITA TOURE DO Feb 07, 2023 16:48
== END 2023-02-07 16:51 | disposition home or self-care (01) ==
LOC: EDUNIT# 16:22 → ER FS 16:24
DX: K02.9 Dental caries, unspecified (principal); K04.7 Periapical abscess without sinus; Z88.2 Allergy status to sulfonamides; Z28.310 Unvaccinated for COVID-19
CPT/HCPCS: 99282